=== PATIENT | female | born 1950 | race Caucasian/White ===

== ENCOUNTER → 2016-12-19 | Outpatient (CLI) | payer MEDICARE, BC ==
[2016-05-27 11:50] VITALS: BP 105/56
[~2016-12-19] MED LIST: ACET325T9 PO; ALPR0.254 PO; ANAS1TAB PO; ASPI-482 PO; ATOR40TA59 PO; CARV12.52 PO; CARV25TA2 PO; CARV6.25 PO; CITA10TA4 PO; CLOP75TA27 PO; FENO145T2 PO; FURO20TA3 PO; FURO40TA4 PO; GABA-585 PO; INSU100I13 SQ; INSU100V SQ; ISOS30TA4 PO; LEVO100T5 PO; LOSA1TAB16 PO; LOSA25TA4 PO; LOSA50TA6 PO; MAGN400C PO; OMEG-85 PO; PANT40TA5 PO; POTA20TA12 PO; PRAS10TA4 PO; PROAIR HFA8.5 GM IH; SPIR25TA PO
--- NOTE | 2016-12-19 11:46 | RAD ---
APPROVED REPORT Patient Location: OUT-PATIENT Indications PAD VELOCITY AND DOPPLER WAVEFORM ANALYSIS RIGHT cm/secWaveformSeverity LEFT c m/secWaveformSeverity Ext Iliac Art. 110.0BiphasicExt Iliac Art. 90.0Biphasic pCFA 103.0BiphasicpCFA 84.0Biphasic dCFA 57.0BiphasicdCFA 95.0Biphasic Prof Fem Art. 53.0BiphasicProf Fem Art. 53.0Biphasic Fem Art Prox. 94.0BiphasicFem Art Prox. 103.0Biphasic Fem Art Mid. 121.0BiphasicFem Art Mid. 109.0Biphasic Fem Art Dist. 90.0BiphasicFem Art Dist. 85.0Biphasic Pop Art(AK) 127.0BiphasicPop Art(AK) 153.0Biphasic Pop Art(BK) 61.0BiphasicPop Art(BK) 153.0Biphasic DOPE HEATER Prox. 55.0BiphasicPTA Prox. 36.0Monophasic DOPE HEATER Dist. 49.0MonophasicPTA Dist. 60.0Monophasic Per Art Mid. 31.0MonophasicPer Art Mid. 63.0Monophasic JAIME Prox. 79.0BiphasicATA Prox. 60.0Monophasic Image Findings Low scale images of the bilateral lower extremity arterial vessels show diffuse mild arterial plaque . Spectral waveforms are mostly biphasic and triphasic above the knee. Below the knee there are more monophasic waveforms. On the right no high-grade flow limiting stenosis is identified. On the left there is a patent stent without any evidence of velocity acceleration at the origin or di stally. Overall suspect mild to moderate diffuse arthroscopic plaque without any significant high-grade flow- limiting stenosis. There is patency with three-vessel runoff I laterally in the lower extremities. Critical Notification Critical Value: No <Conclusion> No focal high-grade stenosis identified in the bilateral lower extremity arterial vessels.
== END | disposition home or self-care (01) ==
LOC: US 08:32
PROVIDERS: ATTEND Internal Medicine Cardiovascular Disease
DX: I73.9 Peripheral vascular disease, unspecified (principal)
CPT/HCPCS: 93925

== ENCOUNTER 2017-11-30 05:39 | Outpatient (CLI) | payer MEDICARE, BC ==
[2017-11-30 07:24] LABS: HEMATOCRIT 41.1 % (36.0-47.0); HEMOGLOBIN 13.7 g/dL (12.0-15.5); MEAN CORPUSCULAR HEMOGLOBIN 30 pg (25-35); MEAN CORPUSCULAR HGB CONC 33 g/dL (31-37); MEAN CORPUSCULAR VOLUME 89 fL (79-100); PLATELET COUNT 156 x10^3/uL (140-400); RED CELL DISTRIBUTION WIDTH 14.5 % (11.5-14.5)
[2017-11-30 07:25] LABS: ANION GAP 11 (6-14); BLOOD UREA NITROGEN 22 mg/dL (7-20); CALCIUM 9.1 mg/dL (8.5-10.1); CARBON DIOXIDE 25 mmol/L (21-32); CHLORIDE 105 mmol/L (98-107); GLUCOSE 210 mg/dL (70-99); INR 1.1 (0.8-1.1); PARTIAL THROMBOPLASTIN TIME 24 SEC (24-38); POTASSIUM 4.5 mmol/L (3.5-5.1); PROTHROMBIN TIME PATIENT 13.3 SEC (11.7-14.0); SODIUM 141 mmol/L (136-145)
[2017-11-30] MEDS ORDERED: IODIXANOL 320 MG/ML 100 ML VIAL. (07:41)
[2017-11-30] MEDS ORDERED: LIDOCAINE 2% 20 ML VIAL. (07:41)
[2017-11-30] MEDS ORDERED: MIDAZOLAM HCL/PF 2 MG/2 ML VIAL. (08:06)
[2017-11-30] MEDS ORDERED: fentaNYL PF VIAL 100 MCG/2 ML VIAL (08:06)
[2017-11-30] MEDS ORDERED: HEPARIN for IV BOLUS 10,000 UNIT/10 ML VIAL. (08:06)
[2017-11-30] MEDS ORDERED: NITROGLYCERIN 200 MCG/2 ML SYRINGE FOR CATH/VASC LAB. (08:10)
[2017-11-30] MEDS: IODIXANOL 320 MG/ML 100 ML VIAL. IART (08:45)
[2017-11-30] MEDS: LIDOCAINE 2% 20 ML VIAL. IJ (08:56)
[2017-11-30] MEDS: fentaNYL PF VIAL 100 MCG/2 ML VIAL IV (08:58)
[2017-11-30] MEDS: MIDAZOLAM HCL/PF 2 MG/2 ML VIAL. IV (08:58)
[2017-11-30] MEDS ORDERED: IV 1/2 NORMAL SALINE 1,000 ML IV (09:08)
[2017-11-30] MEDS ORDERED: fentaNYL PF VIAL 100 MCG/2 ML VIAL IV (09:15)
[2017-11-30] MEDS ORDERED: MAGNESIUM HYDROXIDE 2,400 MG/30 ML ORAL.SUSP. PO (09:15)
[2017-11-30] MEDS ORDERED: LACTULOSE 20 GM/30 ML SOLUTION. PO (09:15)
[2017-11-30] MEDS ORDERED: NITROGLYCERIN SUBLINGUAL 0.4 MG BOTTLE OF 25. SL (09:15)
[2017-11-30] MEDS ORDERED: ACETAMINOPHEN 325 MG TABLET. PO (09:15)
== END 2017-11-30 12:05 | disposition home or self-care (01) ==
LOC: CCL 05:39
DX: I70.212 Atherosclerosis of native arteries of extremities with intermittent claudication, left leg (principal); Z79.82 Long term (current) use of aspirin
CPT/HCPCS: 36200; 36415; 75630; 75716; 80048; 85027; 85610; 85730; 99152; 99153; C1713; C1769; C1892; G0269; J1644; J2250; J3010

== ENCOUNTER → 2018-01-16 | Outpatient (CLI) | payer MEDICARE, BC | END | disposition home or self-care (01) | LOC: ECHO 09:44 | DX: I50.22 Chronic systolic (congestive) heart failure (principal) | CPT/HCPCS: 93306 ==

== ENCOUNTER 2018-10-30 13:55 | Emergency (ER) | payer MEDICARE, BC ==
[~2018-10-30] VITALS: Ht 160 cm; Wt 93.4 kg
[~2018-10-30 13:55] MED LIST changes: +ALBU2.5V8 IH; +AMIO400T5 PO; +AMOX1TAB61 PO; +CARV12.511 PO; -CARV12.52 PO; -CLOP75TA27 PO; +CLOP75TA57 PO; -FENO145T2 PO; +FENO145T30 PO; +LACT1CAP19 PO; +LOSA-73 PO; -LOSA1TAB16 PO; +LOSA1TAB19 PO; -LOSA25TA4 PO; +LOSA25TA54 PO; -LOSA50TA6 PO; +MONT10TA9 PO; -PRAS10TA4 PO; +PRAS10TA9 PO; -PROAIR HFA8.5 GM IH; +SACU1TAB4 PO
[2018-10-30 15:01] LABS: BASO % 0 % (0-3); EOS % 1 % (0-3); HEMATOCRIT 41.1 % (36.0-47.0); HEMOGLOBIN 13.6 g/dL (12.0-15.5); LYMPH # 1.6 x10^3/uL (1.0-4.8); LYMPH % 33 % (24-48); MEAN CORPUSCULAR HEMOGLOBIN 30 pg (25-35); MEAN CORPUSCULAR HGB CONC 33 g/dL (31-37); MEAN CORPUSCULAR VOLUME 89 fL (79-100); MONO # 0.3 x10^3/uL (0.0-1.1); MONO % 5 % (0-9); NEUT % 61 % (31-73); PLATELET COUNT 182 x10^3/uL (140-400); RED CELL DISTRIBUTION WIDTH 13.3 % (11.5-14.5); WHITE BLOOD COUNT 4.9 x10^3/uL (4.0-11.0)
[2018-10-30 15:10] LABS: CALCIUM 8.7 mg/dL (8.5-10.1); CREATININE 1.5 mg/dL (0.6-1.0); GFR 34.3; POTASSIUM 4.5 mmol/L (3.5-5.1)
[2018-10-30 15:17] LABS: ALBUMIN 3.3 g/dL (3.4-5.0); TOTAL BILIRUBIN 0.4 mg/dL (0.2-1.0); TOTAL PROTEIN 6.6 g/dL (6.4-8.2)
--- NOTE | 2018-10-30 16:02 | PHYS DOC ---
Past Medical History Past Medical History: Cancer, COPD, Diabetes-Type II, High Cholesterol, Hypertension, Hypothyroid, [place] Additional Past Medical Histor: BREAST CA Past Surgical History: Hysterectomy, Tonsillectomy, Other Additional Past Surgical Histo: CARDIAC STENT, FEMORAL STENT, LEFT MASTECTOMY Alcohol Use: None Drug Use: None Adult General Chief Complaint Chief Complaint: HYPOTENSION HPI HPI 68-year-old female with a history of multiple medical problems including a recent hospitalization for a firing defibrillator. She states she was discharged approximately 3 days ago. She states that since that time she is just not felt well. She describes malaise. She denies any fever chills or sweats. She denies any myalgias. She has not had any further firing of her fibrillator. She denies chest pain. She states she has been eating but doesn't have a great appetite. She does not get dizzy when she stands up. She states she is just not been very active.] Review of Systems Review of Systems Constitutional: Denies fever or chills [] Eyes: Denies change in visual acuity, redness, or eye pain [] HENT: Denies nasal congestion or sore throat [] Respiratory: Denies cough or shortness of breath [] Cardiovascular: No additional information not addressed in HPI [] GI: Denies abdominal pain, nausea, vomiting, bloody stools or diarrhea [] : Denies dysuria or hematuria [] Musculoskeletal: Denies back pain or joint pain [] Integument: Denies rash or skin lesions [] Neurologic: Denies headache, focal weakness or sensory changes [] Endocrine: Denies polyuria or polydipsia [] All other systems were reviewed and found to be within normal limits, except as documented in this note. Allergies Allergies Allergies Coded Allergies Type Severity Reaction Last Updated Verified insulin glargine Allergy Severe "swelling", hospitalized 10/23/18 Yes Physical Exam Physical Exam Constitutional: Frail elderly, no acute distress, non-toxic appearance. [] HENT: Normocephalic, atraumatic, bilateral external ears normal, oropharynx moist, no oral exudates, nose normal. [] Eyes: PERRLA, EOMI, conjunctiva normal, no discharge. [] Neck: Normal range of motion, no tenderness, supple, no stridor. [] Cardiovascular:Heart rate regular rhythm, no murmur [] Lungs & Thorax: Bilateral breath sounds clear to auscultation defibrillator left upper chest[] Abdomen: Bowel sounds normal, soft, no tenderness, no masses, no pulsatile masses. [] Skin: Warm, dry, no erythema, no rash. [] Back: No tenderness, no CVA tenderness. [] Extremities: No tenderness, no cyanosis, no clubbing, ROM intact, no edema. [] Neurologic: Alert and oriented X 3, normal motor function, normal sensory function, no focal deficits noted. [] Psychologic: Depressed affect[] Current Patient Data Vital Signs Vital Signs Date Time Temp Pulse Resp B/P (MAP) Pulse Ox O2 Delivery O2 Flow Rate FiO2 10/30/18 13:55 97.7 75 21 112/56 (74) 99 Room Air 97.7 Lab Values Laboratory Tests Test 10/30/18 14:00 White Blood Count 4.9 x10^3/uL (4.0-11.0) Red Blood Count 4.60 x10^6/uL (3.50-5.40) Hemoglobin 13.6 g/dL (12.0-15.5) Hematocrit 41.1 % (36.0-47.0) Mean Corpuscular Volume 89 fL (79-100) Mean Corpuscular Hemoglobin 30 pg (25-35) Mean Corpuscular Hemoglobin Concent 33 g/dL (31-37) Red Cell Distribution Width 13.3 % (11.5-14.5) Platelet Count 182 x10^3/uL (140-400) Neutrophils (%) (Auto) 61 % (31-73) Lymphocytes (%) (Auto) 33 % (24-48) Monocytes (%) (Auto) 5 % (0-9) Eosinophils (%) (Auto) 1 % (0-3) Basophils (%) (Auto) 0 % (0-3) Neutrophils # (Auto) 3.0 x10^3uL (1.8-7.7) Lymphocytes # (Auto) 1.6 x10^3/uL (1.0-4.8) Monocytes # (Auto) 0.3 x10^3/uL (0.0-1.1) Eosinophils # (Auto) 0.0 x10^3/uL (0.0-0.7) Basophils # (Auto) 0.0 x10^3/uL (0.0-0.2) Sodium Level 140 mmol/L (136-145) Potassium Level 4.5 mmol/L (3.5-5.1) Chloride Level 104 mmol/L (98-107) Carbon Dioxide Level 25 mmol/L (21-32) Anion Gap 11 (6-14) Blood Urea Nitrogen 26 mg/dL (7-20) H Creatinine 1.5 mg/dL (0.6-1.0) H Estimated GFR (Cockcroft-Gault) 34.3 BUN/Creatinine Ratio 17 (6-20) Glucose Level 181 mg/dL (70-99) H Calcium Level 8.7 mg/dL (8.5-10.1) Total Bilirubin 0.4 mg/dL (0.2-1.0) Aspartate Amino Transferase (AST) 23 U/L (15-37) Alanine Aminotransferase (ALT) 41 U/L (14-59) Alkaline Phosphatase 49 U/L (46-116) Total Protein 6.6 g/dL (6.4-8.2) Albumin 3.3 g/dL (3.4-5.0) L Albumin/Globulin Ratio 1.0 (1.0-1.7) Laboratory Tests 10/30/18 14:00 Laboratory Tests 10/30/18 14:00 EKG EKG [] Radiology/Procedures Radiology/Procedures [] Course & Med Decision Making Course & Med Decision Making Pertinent Labs and Imaging studies reviewed. (See chart for details) []ED course: Evaluation reveals a 68-year-old female who does not look particularly ill she looks more depressed to me. Orthostatic vital signs were checked and they were all normal. I explained to the patient that I did not feel like putting her back in the hospital was in her best interest. I encouraged her to follow with her primary care physician should she have continued malaise. Dragon Disclaimer Dragon Disclaimer This electronic medical record was generated, in whole or in part, using a voice recognition dictation system. Departure Departure Impression: Primary Impression: Generalized weakness Disposition: 01 HOME, SELF-CARE Condition: STABLE Referrals: YARELI GOEL (PCP) Patient Instructions: Weakness Additional Instructions: Follow with her primary care physician this week for recheck. Return to the emergency department with any new or concerning symptoms ALIA PINEDA DO Oct 30, 2018 16:02
[2018-10-30 16:21] LABS: BILIRUBIN,URINE SMALL (NEG); NITRITE,URINE NEGATIVE (NEG); PROTEIN,URINE 30 mg/dL (NEG-TRACE)
[2018-10-30 16:26] LABS: CLARITY,URINE CLEAR; COLOR,URINE DK YELLOW
[2018-10-30 16:30] VITALS: BP 111/56
[2018-10-30 16:30] LABS: BACTERIA,URINE FEW /HPF (0-FEW); HYALINE CASTS, URINE MANY /HPF; RBC,URINE RARE /HPF (0-2); SQUAMOUS EPITHELIAL CELL,UR MANY /LPF; WBC,URINE OCC /HPF (0-4); YEAST,URINE PRESENT /HPF
--- NOTE | 2018-10-30 18:48 | EKG ---
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
== END 2018-10-30 17:04 | disposition home or self-care (01) ==
LOC: ER 13:55
DX: R53.1 Weakness (principal); E78.00 Pure hypercholesterolemia, unspecified; E03.9 Hypothyroidism, unspecified; E11.9 Type 2 diabetes mellitus without complications; J44.9 Chronic obstructive pulmonary disease, unspecified; I10 Essential (primary) hypertension; I25.2 Old myocardial infarction; Z95.5 Presence of coronary angioplasty implant and graft; Z88.8 Allergy status to other drugs, medicaments and biological substances
CPT/HCPCS: 36415; 80053; 81001; 85025; 93005; 99284-25

== ENCOUNTER → 2019-05-28 | Day surgery (SDC) | payer MEDICARE, BC ==
[~2019-05-28] MED LIST changes: -INSU100V SQ; +INSU100V6 SQ; +IV RINGERS,LACTATED 1000ML 1,000 ML IV SCH; +MONT10TA49 PO; -MONT10TA9 PO; -PANT40TA5 PO; +PANT40TA77 PO; +PROPOFOL 20 ML IV ONE; +SODIUM PHOSPHATES 19/7GM 133 ML ENEMA. ONE
[2019-05-28 08:17] VITALS: BP 125/56
== END ==
LOC: ENDOS 05:58
PROVIDERS: ATTEND Internal Medicine Gastroenterology
DX: K64.0 First degree hemorrhoids (principal); K63.89 Other specified diseases of intestine; D64.9 Anemia, unspecified; I11.0 Hypertensive heart disease with heart failure; I50.9 Heart failure, unspecified; E11.9 Type 2 diabetes mellitus without complications; J43.9 Emphysema, unspecified; K44.9 Diaphragmatic hernia without obstruction or gangrene; E78.00 Pure hypercholesterolemia, unspecified; E03.9 Hypothyroidism, unspecified; I25.2 Old myocardial infarction; Z98.890 Other specified postprocedural states; Z79.82 Long term (current) use of aspirin; Z90.710 Acquired absence of both cervix and uterus; Z95.810 Presence of automatic (implantable) cardiac defibrillator; Z85.3 Personal history of malignant neoplasm of breast; Z98.51 Tubal ligation status; Z79.84 Long term (current) use of oral hypoglycemic drugs
CPT/HCPCS: 45378; 82962; J2704

== ENCOUNTER 2019-12-22 18:03 | Inpatient (IN) | payer MEDICARE, BC ==
[~2019-12-22] VITALS: Ht 160 cm; Wt 94.0 kg
[~2019-12-22 18:03] MED LIST changes: +DOCU-109 PO; +ENOX100D3 SQ; +FENO145T3 PO; -FENO145T30 PO; +HYDR-2761 PO; -IV RINGERS,LACTATED 1000ML 1,000 ML IV SCH; +LISI-338 PO; -PROPOFOL 20 ML IV ONE; -SODIUM PHOSPHATES 19/7GM 133 ML ENEMA. ONE; +WARF-31 PO
[2019-12-22] MEDS ORDERED: IV NORMAL SALINE 1000ML BAG 1,000 ML IV SCH (18:19)
--- NOTE | 2019-12-22 18:27 | PHYS DOC ---
Past Medical History Past Medical History: Cancer, COPD, Diabetes-Type II, High Cholesterol, H ypertension, Hypothyroid, [place] Additional Past Medical Histor: BREAST CA Past Surgical History: Hysterectomy, Pacemaker, Tonsillectomy, Other Additional Past Surgical Histo: CARDIAC STENT, FEMORAL STENT, LEFT MASTECTOMY Smoking Status: Never Smoker Alcohol Use: None Drug Use: None General Adult EDM: Chief Complaint: SHORTNESS OF BREATH HPI: HPI: Patient is a 69 year old female who presents with complaint of shortness of breath and generalized weakness for the last few days. Patient indicates that she had a cholecystectomy back in October and had a lot of postoperative bleeding at that time. She states that she is feeling very much like she had back then. She also indicates that her abdomen has become distended and is wondering if she has started bleeding again. She denies any fever. She denies any chest pain and has had no vomiting or diarrhea. She does indicate that the shortness breath is worsened with minimal exertion.[] Review of Systems: Review of Systems: Constitutional: Denies fever or chills. [] Respiratory: Complains of shortness of breath. [] Cardiovascular: Denies chest pain or edema. [] GI: Denies abdominal pain, nausea, vomiting or diarrhea. [] Integument: Denies rash. [] Neurologic: Denies headache, focal weakness or sensory changes. [] A full 10 point review of systems has been reviewed and is otherwise negative. Heart Score: Risk Factors: Risk Factors: DM, Current or recent (<one month) smoker, HTN, HLP, family history of CAD, obesity. Risk Scores: Score 0 - 3: 2.5% MACE over next 6 weeks - Discharge Home Score 4 - 6: 20.3% MACE over next 6 weeks - Admit for Clinical Observation Score 7 - 10: 72.7% MACE over next 6 weeks - Early Invasive Strategies Allergies: Allergies: Allergies Coded Allergies Type Severity Reaction Last Updated Verified insulin glargine Allergy Severe "swelling", hospitalized [facility] ONLY 09/27/19 Yes Physical Exam: PE: Constitutional: Well developed, well nourished, no acute distress, non-toxic appearance. [] HENT: Normocephalic, atraumatic, bilateral external ears normal, oropharynx moist, no oral exudates, nose normal. [] Eyes: PERRLA, EOMI, conjunctiva normal, no discharge. [] Neck: Normal range of motion, no tenderness, supple. [] Cardiovascular: Regular rate and rhythm[] Lungs & Thorax: Bilateral breath sounds clear to auscultation [] Abdomen: Bowel sounds normal, mildly distended but nontender. [] Skin: Warm, dry, no erythema, no rash. [] Extremities: No tenderness, no cyanosis, no clubbing, ROM intact. [] Neurologic: Alert and oriented X 3, no focal deficits noted. [] EKG: EKG: EKG demonstrates normal sinus rhythm with rate of 90.[] Radiology/Procedures: Radiology/Procedures: [] Impression: PROCEDURE: PORTABLE CHEST 1V PORTABLE CHEST 1V 12/22/2019 6:19 PM INDICATION: Dyspnea COMPARISON: 10/10/2019 TECHNIQUE: Portable frontal view of the chest is provided. FINDINGS: The cardiomediastinal silhouette is similar in appearance. Similar mild interstitial prominence. Lungs are otherwise clear. Right chest wall cardiac device is identified in similar position. There may be a moderate sized hiatal hernia. There are no significant pleural effusions. There is no pulmonary vascular congestion. No pneumothorax. No suspicious osseous abnormality. IMPRESSION: Stable mild chronic interstitial changes without new airspace consolidation. Suspect a moderate size hiatal hernia. Electronically signed by: Willian Russ MD (12/22/2019 7:56 PM) [facility] PROCEDURE: CT ABDOMEN PELVIS WO CONTRAST PQRS Compliance Statement: One or more of the following individualized dose reduction techniques were utilized for this examination: 1. Automated exposure control 2. Adjustment of the mA and/or kV according to patient size 3. Use of iterative reconstruction technique CT abdomen/pelvis without contrast 12/22/2019 9:30 PM INDICATION: Abdominal distention, pain COMPARISON: CT abdomen/pelvis 09/28/2019 TECHNIQUE: Multiple axial CT images of the abdomen and pelvis were obtained without intravenous contrast. Coronal and sagittal reformats are provided. FINDINGS: Pleural thickening is noted at the lung bases with bibasilar interstitial changes, possibly representing chronic edema. Heart size is enlarged. Cardiac pacer wires are partially profiled. Evaluation of solid abdominal viscera is limited by lack of intravenous contrast. There is a new area of hypoattenuation involving the inferior aspect of the right hepatic lobe measuring 3.2 x 3.0 cm. Gallbladder appears surgically absent. Within the gallbladder fossa, there is a fluid collection measuring 4.8 x 3.2 cm. Spleen is not enlarged. Adrenal glands are normal in appearance. Mild fatty atrophy of the pancreas. Minimal hazy attenuation along the inferior margin of the uncinate process. Abdominal aorta is normal in course and caliber with mild calcified atheromatous plaque. No pathologically enlarged lymph nodes are identified in abdomen and pelvis. There is no free fluid or free intraperitoneal air. There is hazy appearance of the central small bowel mesentery, new from the prior examination (series 2, image 98). IVC filter is present. The kidneys are relatively symmetric in appearance. There is no suspicious renal mass within the limitations of a noncontrast examination. There is no hydronephrosis. There are no calculi within the kidneys, ureters or urinary bladder. Mild chronic perinephric edema is noted. Small and large bowel are normal in caliber. There is no evidence for bowel obstruction. There are no pericolonic inflammatory changes. A normal, nondilated appendix is visualized without adjacent inflammatory changes. Urinary bladder is within normal limits given degree of distention. No suspicious pelvic mass. No suspicious osseous abnormality is identified. IMPRESSION: 1. Status post cholecystectomy with fluid collection in the gallbladder fossa. Along the inferior aspect of the right hepatic lobe, there may be subcapsular fluid collection versus intrahepatic mass. Findings could reflect postoperative changes with postoperative seroma in the gallbladder fossa. However, correlation with patient's history is recommended. Correlate with bile leak. Inferior right hepatic lobe abnormality could reflect a subcapsular hematoma versus developing intrahepatic abscess or neoplasm. Findings are limited in evaluation without intravenous contrast. 2. Cardiomegaly with likely chronic interstitial edema of the lung bases. 3. New hazy attenuation within the root of small bowel mesentery with shotty lymphadenopathy may represent mesenteric adenitis. Mild fatty atrophy of the pancreas. There is minimal hazy attenuation along the inferior margin the uncinate process. Correlate with pancreatic enzymes to assess for pancreatitis. Electronically signed by: Willian Russ MD (12/22/2019 9:49 PM) [facility] DICTATED and SIGNED BY: WILLIAN RUSS MD DATE: 12/22/192148 Course & Med Decision Making: Course & Med Decision Making Pertinent Labs and Imaging studies reviewed. (See chart for details) [] Dragon Disclaimer: Dragon Disclaimer: This electronic medical record was generated, in whole or in part, using a voice recognition dictation system. Departure Departure Impression: Primary Impression: Weakness Additional Impressions: Dyspnea Qualified Codes: R06.02 - Shortness of breath Abnormal CT of the abdomen MAURILIO (acute kidney injury) Disposition: 09 ADMITTED INPATIENT Admitting Physician: KARLA Condition: IMPROVED Referrals: YARELI GOEL (PCP) TACHO BURGESS Jr. DO Dec 22, 2019 18:27
--- NOTE | 2019-12-22 19:59 | RAD ---
PORTABLE CHEST 1V 12/22/2019 6:19 PM INDICATION: Dyspnea COMPARISON: 10/10/2019 TECHNIQUE: Portable frontal view of the chest is provided. FINDINGS: The cardiomediastinal silhouette is similar in appearance. Similar mild interstitial prominence. Lungs are otherwise clear. Right chest wall cardiac device is identified in similar position. There may be a moderate sized hiatal hernia. There are no significant pleural effusions. There is no pulmonary vascular congestion. No pneumothorax. No suspicious osseous abnormality. IMPRESSION: Stable mild chronic interstitial changes without new airspace consolidation. Suspect a moderate size hiatal hernia. Electronically signed by: Alina Russ MD (12/22/2019 7:56 PM) MAN[facility]
[2019-12-22 20:14] LABS: BASO % 1 % (0-3); EOS % 1 % (0-3); HEMOGLOBIN 11.3 g/dL (12.0-15.5); LYMPH # 1.5 x10^3/uL (1.0-4.8); LYMPH % 21 % (24-48); MEAN CORPUSCULAR HEMOGLOBIN 23 pg (25-35); MEAN CORPUSCULAR HGB CONC 31 g/dL (31-37); MEAN CORPUSCULAR VOLUME 75 fL (79-100); MONO # 0.8 x10^3/uL (0.0-1.1); MONO % 12 % (0-9); NEUT # 4.7 x10^3/uL (1.8-7.7); NEUT % 66 % (31-73); PLATELET COUNT 202 x10^3/uL (140-400); RED BLOOD COUNT 4.83 x10^6/uL (3.50-5.40); WHITE BLOOD COUNT 7.1 x10^3/uL (4.0-11.0)
[2019-12-22 20:18] LABS: CALCIUM 8.7 mg/dL (8.5-10.1); CREATININE 1.8 mg/dL (0.6-1.0); GFR 27.7; POTASSIUM 4.2 mmol/L (3.5-5.1)
[2019-12-22 20:24] LABS: ALBUMIN 3.5 g/dL (3.4-5.0); ALBUMIN/GLOBULIN RATIO 1.2 (1.0-1.7); PROTHROMBIN TIME PATIENT 13.5 SEC (11.7-14.0); TOTAL BILIRUBIN 0.3 mg/dL (0.2-1.0); TOTAL PROTEIN 6.5 g/dL (6.4-8.2)
[2019-12-22 20:32] LABS: D-DIMER 0.55 ug/mlFEU (0.00-0.50)
--- NOTE | 2019-12-22 21:52 | RAD ---
PQRS Compliance Statement: One or more of the following individualized dose reduction techniques were utilized for this examination: 1. Automated exposure control 2. Adjustment of the mA and/or kV according to patient size 3. Use of iterative reconstruction technique CT abdomen/pelvis without contrast 12/22/2019 9:30 PM INDICATION: Abdominal distention, pain COMPARISON: CT abdomen/pelvis 09/28/2019 TECHNIQUE: Multiple axial CT images of the abdomen and pelvis were obtained without intravenous contrast. Coronal and sagittal reformats are provided. FINDINGS: Pleural thickening is noted at the lung bases with bibasilar interstitial changes, possibly representing chronic edema. Heart size is enlarged. Cardiac pacer wires are partially profiled. Evaluation of solid abdominal viscera is limited by lack of intravenous contrast. There is a new area of hypoattenuation involving the inferior aspect of the right hepatic lobe measuring 3.2 x 3.0 cm. Gallbladder appears surgically absent. Within the gallbladder fossa, there is a fluid collection measuring 4.8 x 3.2 cm. Spleen is not enlarged. Adrenal glands are normal in appearance. Mild fatty atrophy of the pancreas. Minimal hazy attenuation along the inferior margin of the uncinate process. Abdominal aorta is normal in course and caliber with mild calcified atheromatous plaque. No pathologically enlarged lymph nodes are identified in abdomen and pelvis. There is no free fluid or free intraperitoneal air. There is hazy appearance of the central small bowel mesentery, new from the prior examination (series 2, image 98). IVC filter is present. The kidneys are relatively symmetric in appearance. There is no suspicious renal mass within the limitations of a noncontrast examination. There is no hydronephrosis. There are no calculi within the kidneys, ureters or urinary bladder. Mild chronic perinephric edema is noted. Small and large bowel are normal in caliber. There is no evidence for bowel obstruction. There are no pericolonic inflammatory changes. A normal, nondilated appendix is visualized without adjacent inflammatory changes. Urinary bladder is within normal limits given degree of distention. No suspicious pelvic mass. No suspicious osseous abnormality is identified. IMPRESSION: 1. Status post cholecystectomy with fluid collection in the gallbladder fossa. Along the inferior aspect of the right hepatic lobe, there may be subcapsular fluid collection versus intrahepatic mass. Findings could reflect postoperative changes with postoperative seroma in the gallbladder fossa. However, correlation with patient's history is recommended. Correlate with bile leak. Inferior right hepatic lobe abnormality could reflect a subcapsular hematoma versus developing intrahepatic abscess or neoplasm. Findings are limited in evaluation without intravenous contrast. 2. Cardiomegaly with likely chronic interstitial edema of the lung bases. 3. New hazy attenuation within the root of small bowel mesentery with shotty lymphadenopathy may represent mesenteric adenitis. Mild fatty atrophy of the pancreas. There is minimal hazy attenuation along the inferior margin the uncinate process. Correlate with pancreatic enzymes to assess for pancreatitis. Electronically signed by: Alina Russ MD (12/22/2019 9:49 PM) [facility]
[2019-12-22] MEDS ORDERED: ONDANSETRON PF 4 MG/2 ML VIAL. IV PRN (22:15)
[2019-12-23] VITALS (7 sets, daily range): BP systolic 115–157; BP diastolic 50–74
[2019-12-23] MEDS ORDERED: HYDR-2765 PO (00:20)
[2019-12-23] MEDS ORDERED: CARV12.511 PO (00:20)
[2019-12-23] MEDS ORDERED: FURO20TA3 PO (00:20)
[2019-12-23] MEDS ORDERED: CITA20TA6 PO (00:20)
[2019-12-23] MEDS ORDERED: AMIO200T4 PO (00:20)
[2019-12-23] MEDS: IV NORMAL SALINE 1000ML BAG 1,000 ML IV SCH ×3 (00:30→13:41)
[2019-12-23 04:24] LABS: BASO % 1 % (0-3); EOS # 0.1 x10^3/uL (0.0-0.7); EOS % 1 % (0-3); HEMATOCRIT 33.5 % (36.0-47.0); HEMOGLOBIN 10.2 g/dL (12.0-15.5); LYMPH # 1.7 x10^3/uL (1.0-4.8); LYMPH % 31 % (24-48); MEAN CORPUSCULAR HEMOGLOBIN 23 pg (25-35); MEAN CORPUSCULAR HGB CONC 31 g/dL (31-37); MEAN CORPUSCULAR VOLUME 76 fL (79-100); MONO # 0.5 x10^3/uL (0.0-1.1); MONO % 9 % (0-9); NEUT # 3.2 x10^3/uL (1.8-7.7); NEUT % 58 % (31-73); PLATELET COUNT 167 x10^3/uL (140-400); RED BLOOD COUNT 4.43 x10^6/uL (3.50-5.40); RED CELL DISTRIBUTION WIDTH 18.8 % (11.5-14.5); WHITE BLOOD COUNT 5.5 x10^3/uL (4.0-11.0)
[2019-12-23 04:36] LABS: CALCIUM 8.2 mg/dL (8.5-10.1); CREATININE 1.5 mg/dL (0.6-1.0); GFR 34.2; POTASSIUM 4.5 mmol/L (3.5-5.1)
--- NOTE | 2019-12-23 05:34 | EKG ---
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
--- NOTE | 2019-12-23 09:08 | PDOC2 ---
ZULMA HERNÁNDEZ TIG WELDER 12/23/19 0908: CONSULT Date of Consult Date of Consult DATE: 12/23/19 TIME: 08:57 Reason for Consult Reason for Consult: abnormal CT Referring Physician Referring Physician: ER Identification/Chief Complaint Chief Complaint abdominal pain Source Source: Chart review, Patient History of Present Illness Reason for Visit: S/p lap moraima in Sep, hematoma post-with drain in place --on antiplatelet me ds--now with IVC filter Pain since surgery, however improving, then 2 weeks ago started having more pain RUQ, blaoting, feeling gassy, reports normal stools, no n/v, eating regularly Past Medical History Cardiovascular: CAD, CHF, HTN, Hyperlipidemia Pulmonary: Pneumonia CENTRAL NERVOUS SYSTEM: Carpal Tunnel Syndrome, Periperal neuropathy GI: GERD Heme/Onc: Cancer Psych: Anxiety Musculoskeletal: Osteoarthritis Infectious disease: No pertinent hx Renal/: No pertinent hx Endocrine: Diabetes, Hypothyroidism Past Surgical History Past Surgical History: Cholecystectomy, Mastectomy, Tubal Ligation, Tonsillectomy, Hysterectomy, Other Family History Family History: Heart Disease Social History ALCOHOL: none Drugs: None Lives: Alone Domestic Violence: Neg Current Problem List Problem List Problems Medical Problems: (1) Abnormal CT of the abdomen Status: Acute (2) Dyspnea Status: Acute Current Medications Current Medications Current Medications Sodium Chloride 1,000 ml @ 1,000 mls/hr Q1H IV Last administered on 12/22/19at 19:55; Start 12/22/19 at 18:19; Stop 12/22/19 at 19:18; Status DC Ondansetron HCl (Zofran) 4 mg PRN Q8HRS PRN IV NAUSEA/VOMITING; Start 12/22/19 at 22:15; Stop 12/23/19 at 22:14 Sodium Chloride 1,000 ml @ 100 mls/hr Q10H IV Last administered on 12/23/19at 00:30; Start 12/22/19 at 22:15; Stop 12/23/19 at 22:14 Active Scripts Active Colace (Docusate Sodium) 100 Mg Capsule 1 Cap PO BID 30 Days Alprazolam 0.25 Mg Tablet 1 Tab PO BID PRN Reported Citalopram Hbr (Citalopram Hydrobromide) 20 Mg Tablet 1 Tab PO DAILY08 Hydrocodone-Apap 7.5-325 (Hydrocodone Bit/Acetaminophen) 1 Tab Tablet 1 Tab PO Q4HRS PRN Furosemide 20 Mg Tablet 20 Mg PO BID Carvedilol (Carvedilol) 12.5 Mg Tablet 12.5 Mg PO BIDWMEALS Amiodarone Hcl 200 Mg Tablet 1 Tab PO DAILY Montelukast Sodium Tablet (Montelukast Sodium) 10 Mg Tablet 10 Mg PO HS Levothyroxine Sodium 100 Mcg Tablet 1 Tab PO DAILY Proair Hfa Inhaler (Albuterol Sulfate) 8.5 Gm Hfa.aer.ad 2 Puff IH PRN Q4-6HRS Tylenol (Acetaminophen) 325 Mg Tablet 650 Mg PO Fenofibrate (Fenofibrate Nanocrystallized) 145 Mg Tablet 1 Tab PO DAILY NEXT DOSE: 05/21/15 AM Humalog (Insulin Lispro) 100 Unit/1 Ml Vial 35 Unit SQ TID Lantus Solostar (Insulin Glargine,Hum.rec.anlog) 100 Unit/1 Ml Insuln.pen 50 Unit SQ HS Pantoprazole Sodium (Pantoprazole Sodium) 40 Mg Tablet.dr 40 Mg PO DAILY NEXT DOSE: 05/21/15 AM Atorvastatin Calcium 40 Mg Tablet 40 Mg PO HS Gabapentin (Gabapentin) 100 Mg Capsule 100 Mg PO BID NEXT DOSE: 05/20/15 PM Allergies Allergies: Coded Allergies: insulin glargine (Verified Allergy, Severe, "swelling", hospitalized [facility] ONLY, 09/27/19) allergy is [facility] ONLY, takes LANTUS [place] ROS General: No: Chills, Other (fevers ) PSYCHOLOGICAL ROS: No: Anxiety, Depression Eyes: No Blurry vision, No Double vision HEENT: No: Heacaches, Sore Throat Hematological and Lymphatic: YES: Bleeding Problems; No: Blood Clots Respiratory: No: Cough, Shortness of breath Cardiovascular: No Chest Pain, No Palpitations Gastrointestinal: Yes Other (see hpi) Genitourinary: No Dysuria, No Retention Musculoskeletal: No Joint Pain, No Muscle Pain Neurological: No Impaired Coord/balance, No Numbness/Tingling Skin: No Pruritus, No Rash Physical Exam General: Alert, Oriented X3, Cooperative HEENT: PERRLA, Mucous membr. moist/pink Lungs: Clear to auscultation, Normal air movement Heart: Regular rate, Normal S1, Normal S2 Abdomen: Soft, Other (moderate ttp RUQ, some guarding with deep palpation ) Extremities: No clubbing, No cyanosis Skin: No rashes, No breakdown Neuro: Normal gait, Normal speech Psych/Mental Status: Mental status NL, Mood NL MUSCULOSKELETAL: No deformity, No swelling Vitals VITALS Vital Signs Date Time Temp Pulse Resp B/P (MAP) Pulse Ox O2 Delivery O2 Flow Rate FiO2 12/23/19 07:25 Nasal Cannula 2.0 12/23/19 07:20 97.7 79 16 149/74 (99) 98 97.7 Labs Labs Laboratory Tests Test 12/22/19 19:55 12/22/19 23:37 12/23/19 03:30 White Blood Count 7.1 x10^3/uL (4.0-11.0) 5.5 x10^3/uL (4.0-11.0) Red Blood Count 4.83 x10^6/uL (3.50-5.40) 4.43 x10^6/uL (3.50-5.40) Hemoglobin 11.3 g/dL (12.0-15.5) 10.2 g/dL (12.0-15.5) Hematocrit 36.0 % (36.0-47.0) 33.5 % (36.0-47.0) Mean Corpuscular Volume 75 fL (79-100) 76 fL (79-100) Mean Corpuscular Hemoglobin 23 pg (25-35) 23 pg (25-35) Mean Corpuscular Hemoglobin Concent 31 g/dL (31-37) 31 g/dL (31-37) Red Cell Distribution Width 19.0 % (11.5-14.5) 18.8 % (11.5-14.5) Platelet Count 202 x10^3/uL (140-400) 167 x10^3/uL (140-400) Neutrophils (%) (Auto) 66 % (31-73) 58 % (31-73) Lymphocytes (%) (Auto) 21 % (24-48) 31 % (24-48) Monocytes (%) (Auto) 12 % (0-9) 9 % (0-9) Eosinophils (%) (Auto) 1 % (0-3) 1 % (0-3) Basophils (%) (Auto) 1 % (0-3) 1 % (0-3) Neutrophils # (Auto) 4.7 x10^3/uL (1.8-7.7) 3.2 x10^3/uL (1.8-7.7) Lymphocytes # (Auto) 1.5 x10^3/uL (1.0-4.8) 1.7 x10^3/uL (1.0-4.8) Monocytes # (Auto) 0.8 x10^3/uL (0.0-1.1) 0.5 x10^3/uL (0.0-1.1) Eosinophils # (Auto) 0.0 x10^3/uL (0.0-0.7) 0.1 x10^3/uL (0.0-0.7) Basophils # (Auto) 0.0 x10^3/uL (0.0-0.2) 0.0 x10^3/uL (0.0-0.2) Prothrombin Time 13.5 SEC (11.7-14.0) Prothromb Time International Ratio 1.1 (0.8-1.1) Activated Partial Thromboplast Time 25 SEC (24-38) D-Dimer (Elsy) 0.55 ug/mlFEU (0.00-0.50) Sodium Level 139 mmol/L (136-145) 140 mmol/L (136-145) Potassium Level 4.2 mmol/L (3.5-5.1) 4.5 mmol/L (3.5-5.1) Chloride Level 102 mmol/L (98-107) 106 mmol/L (98-107) Carbon Dioxide Level 27 mmol/L (21-32) 25 mmol/L (21-32) Anion Gap 10 (6-14) 9 (6-14) Blood Urea Nitrogen 28 mg/dL (7-20) 27 mg/dL (7-20) Creatinine 1.8 mg/dL (0.6-1.0) 1.5 mg/dL (0.6-1.0) Estimated GFR (Cockcroft-Gault) 27.7 34.2 BUN/Creatinine Ratio 16 (6-20) Glucose Level 151 mg/dL (70-99) 220 mg/dL (70-99) Calcium Level 8.7 mg/dL (8.5-10.1) 8.2 mg/dL (8.5-10.1) Total Bilirubin 0.3 mg/dL (0.2-1.0) Aspartate Amino Transf (AST/SGOT) 24 U/L (15-37) Alanine Aminotransferase (ALT/SGPT) 40 U/L (14-59) Alkaline Phosphatase 68 U/L (46-116) Troponin I Quantitative < 0.017 ng/mL (0.000-0.055) GN-Uuj-J-Type Natriuretic Peptide 409 pg/mL (0-124) Total Protein 6.5 g/dL (6.4-8.2) Albumin 3.5 g/dL (3.4-5.0) Albumin/Globulin Ratio 1.2 (1.0-1.7) Lipase 304 U/L (73-393) Glucose (Fingerstick) 137 mg/dL (70-99) Laboratory Tests Test 12/22/19 19:55 12/22/19 23:37 12/23/19 03:30 White Blood Count 7.1 x10^3/uL (4.0-11.0) 5.5 x10^3/uL (4.0-11.0) Red Blood Count 4.83 x10^6/uL (3.50-5.40) 4.43 x10^6/uL (3.50-5.40) Hemoglobin 11.3 g/dL (12.0-15.5) 10.2 g/dL (12.0-15.5) Hematocrit 36.0 % (36.0-47.0) 33.5 % (36.0-47.0) Mean Corpuscular Volume 75 fL (79-100) 76 fL (79-100) Mean Corpuscular Hemoglobin 23 pg (25-35) 23 pg (25-35) Mean Corpuscular Hemoglobin Concent 31 g/dL (31-37) 31 g/dL (31-37) Red Cell Distribution Width 19.0 % (11.5-14.5) 18.8 % (11.5-14.5) Platelet Count 202 x10^3/uL (140-400) 167 x10^3/uL (140-400) Neutrophils (%) (Auto) 66 % (31-73) 58 % (31-73) Lymphocytes (%) (Auto) 21 % (24-48) 31 % (24-48) Monocytes (%) (Auto) 12 % (0-9) 9 % (0-9) Eosinophils (%) (Auto) 1 % (0-3) 1 % (0-3) Basophils (%) (Auto) 1 % (0-3) 1 % (0-3) Neutrophils # (Auto) 4.7 x10^3/uL (1.8-7.7) 3.2 x10^3/uL (1.8-7.7) Lymphocytes # (Auto) 1.5 x10^3/uL (1.0-4.8) 1.7 x10^3/uL (1.0-4.8) Monocytes # (Auto) 0.8 x10^3/uL (0.0-1.1) 0.5 x10^3/uL (0.0-1.1) Eosinophils # (Auto) 0.0 x10^3/uL (0.0-0.7) 0.1 x10^3/uL (0.0-0.7) Basophils # (Auto) 0.0 x10^3/uL (0.0-0.2) 0.0 x10^3/uL (0.0-0.2) Prothrombin Time 13.5 SEC (11.7-14.0) Prothromb Time International Ratio 1.1 (0.8-1.1) Activated Partial Thromboplast Time 25 SEC (24-38) D-Dimer (Elsy) 0.55 ug/mlFEU (0.00-0.50) Sodium Level 139 mmol/L (136-145) 140 mmol/L (136-145) Potassium Level 4.2 mmol/L (3.5-5.1) 4.5 mmol/L (3.5-5.1) Chloride Level 102 mmol/L (98-107) 106 mmol/L (98-107) Carbon Dioxide Level 27 mmol/L (21-32) 25 mmol/L (21-32) Anion Gap 10 (6-14) 9 (6-14) Blood Urea Nitrogen 28 mg/dL (7-20) 27 mg/dL (7-20) Creatinine 1.8 mg/dL (0.6-1.0) 1.5 mg/dL (0.6-1.0) Estimated GFR (Cockcroft-Gault) 27.7 34.2 BUN/Creatinine Ratio 16 (6-20) Glucose Level 151 mg/dL (70-99) 220 mg/dL (70-99) Calcium Level 8.7 mg/dL (8.5-10.1) 8.2 mg/dL (8.5-10.1) Total Bilirubin 0.3 mg/dL (0.2-1.0) Aspartate Amino Transf (AST/SGOT) 24 U/L (15-37) Alanine Aminotransferase (ALT/SGPT) 40 U/L (14-59) Alkaline Phosphatase 68 U/L (46-116) Troponin I Quantitative < 0.017 ng/mL (0.000-0.055) IE-Orf-S-Type Natriuretic Peptide 409 pg/mL (0-124) Total Protein 6.5 g/dL (6.4-8.2) Albumin 3.5 g/dL (3.4-5.0) Albumin/Globulin Ratio 1.2 (1.0-1.7) Lipase 304 U/L (73-393) Glucose (Fingerstick) 137 mg/dL (70-99) Assessment/Plan Assessment/Plan abd pain abnormal CT fluid collection GB fossa--seems unlikely bile leak since length of time since surgery, ? sermoa/hematoma still resolving--will check HIDA to confirm no bile leak Abnormal liver finding--rec improving CR and repeat CT with IV/oral contrast OSVALDO FREED MD 12/24/19 0911: CONSULT Assessment/Plan Assessment/Plan Density on CT scan most likely related to surgicel pack (hemostatic agent) used during surgery; Can check HIDA however very unlikely to have bile leak or other related postchole issue at this point ZULMA HERNÁNDEZ APRN Dec 23, 2019 09:08 OSVALDO FREED MD Dec 24, 2019 09:11
[2019-12-23] MEDS ORDERED: ALPRAZolam 0.25 MG TABLET PO PRN (12:00)
[2019-12-23] MEDS ORDERED: HYDROcodone/APAP 7.5/325MG 1 TAB TABLET PO PRN (12:00)
--- NOTE | 2019-12-23 12:17 | PDOC1 ---
History and Physical Date of Admission Date of Admission DATE: 12/23/19 TIME: 11:53 Identification/Chief Complaint Chief Complaint abdominal pain Source Source: Chart review, Patient History of Present Illness History of Present Illness 69 year old female s/p lap moraima in Sep with hematoma post with drain in place. was on antiplt therapy but had blood loss anemia so stopped. she has a hx of coronary artery disease, status post drug-eluting stents to left anterior descending. she also has a hx of bilateral PE on coumadin which was stopped due to blood loss anemia back in Oct. She has a history of cancer, Noted hx of congestive heart failure with an ejection fraction of 25%, status post AICD placement that is stable. she presents today with pain in abdomen. noted pain since sx but improved but worsened 2 weeks ago. mostly located in RUQ. reports gas and bloating. no nausea vomiting diarrhea. no urinary symptoms. no fevers. tolerating PO diet. called for admission due to pain . H AND H STABLE AT 10.[address] abdomen done and is as follows: 1. Status post cholecystectomy with fluid collection in the gallbladder fossa. Along the inferior aspect of the right hepatic lobe, there may be subcapsular fluid collection versus intrahepatic mass. Findings could reflect postoperative changes with postoperative seroma in the gallbladder fossa. However, correlation with patient's history is recommended. Correlate with bile leak. Inferior right hepatic lobe abnormality could reflect a subcapsular hematoma versus developing intrahepatic abscess or neoplasm. Findings are limited in evaluation without intravenous contrast. 2. Cardiomegaly with likely chronic interstitial edema of the lung bases. 3. New hazy attenuation within the root of small bowel mesentery with shotty lymphadenopathy may represent mesenteric adenitis. Mild fatty atrophy of the pancreas. There is minimal hazy attenuation along the inferior margin the uncinate process. Correlate with pancreatic enzymes to assess for pancreatitis. Past Medical History Cardiovascular: CAD, CHF, HTN, Hyperlipidemia Pulmonary: Pneumonia CENTRAL NERVOUS SYSTEM: Carpal Tunnel Syndrome, Periperal neuropathy GI: GERD Heme/Onc: Cancer Psych: Anxiety Musculoskeletal: Osteoarthritis Infectious disease: No pertinent hx Renal/: No pertinent hx Endocrine: Diabetes, Hypothyroidism Past Surgical History Past Surgical History: Cholecystectomy, Mastectomy, Tubal Ligation, Tonsillectomy, Hysterectomy, Other Family History Family History: Heart Disease Social History ALCOHOL: none Drugs: None Current Problem List Problem List Problems Medical Problems: (1) Abnormal CT of the abdomen Status: Acute (2) Dyspnea Status: Acute Current Medications Current Medications Current Medications Sodium Chloride 1,000 ml @ 1,000 mls/hr Q1H IV Last administered on 12/22/19at 19:55; Start 12/22/19 at 18:19; Stop 12/22/19 at 19:18; Status DC Ondansetron HCl (Zofran) 4 mg PRN Q8HRS PRN IV NAUSEA/VOMITING; Start 12/22/19 at 22:15; Stop 12/23/19 at 22:14 Sodium Chloride 1,000 ml @ 100 mls/hr Q10H IV Last administered on 12/23/19at 00:30; Start 12/22/19 at 22:15; Stop 12/23/19 at 22:14 Active Scripts Active Colace (Docusate Sodium) 100 Mg Capsule 1 Cap PO BID 30 Days Alprazolam 0.25 Mg Tablet 1 Tab PO BID PRN Reported Citalopram Hbr (Citalopram Hydrobromide) 20 Mg Tablet 1 Tab PO DAILY08 Hydrocodone-Apap 7.5-325 (Hydrocodone Bit/Acetaminophen) 1 Tab Tablet 1 Tab PO Q4HRS PRN Furosemide 20 Mg Tablet 20 Mg PO BID Carvedilol (Carvedilol) 12.5 Mg Tablet 12.5 Mg PO BIDWMEALS Amiodarone Hcl 200 Mg Tablet 1 Tab PO DAILY Montelukast Sodium Tablet (Montelukast Sodium) 10 Mg Tablet 10 Mg PO HS Levothyroxine Sodium 100 Mcg Tablet 1 Tab PO DAILY Proair Hfa Inhaler (Albuterol Sulfate) 8.5 Gm Hfa.aer.ad 2 Puff IH PRN Q4-6HRS Tylenol (Acetaminophen) 325 Mg Tablet 650 Mg PO Fenofibrate (Fenofibrate Nanocrystallized) 145 Mg Tablet 1 Tab PO DAILY NEXT DOSE: 05/21/15 AM Humalog (Insulin Lispro) 100 Unit/1 Ml Vial 35 Unit SQ TID Lantus Solostar (Insulin Glargine,Hum.rec.anlog) 100 Unit/1 Ml Insuln.pen 50 Unit SQ HS Pantoprazole Sodium (Pantoprazole Sodium) 40 Mg Tablet.dr 40 Mg PO DAILY NEXT DOSE: 05/21/15 AM Atorvastatin Calcium 40 Mg Tablet 40 Mg PO HS Gabapentin (Gabapentin) 100 Mg Capsule 100 Mg PO BID NEXT DOSE: 05/20/15 PM Allergies Allergies: Coded Allergies: insulin glargine (Verified Allergy, Severe, "swelling", hospitalized [facility] ONLY, 09/27/19) allergy is [facility] ONLY, takes LANTUS [place] ROS Review of System CONSTITUTIONAL: No fever or chills EYES: No recent changes SKIN: No rash or itching CARDIOVASCULAR: No chest pain, syncope, palpitations, or edema RESPIRATORY: No SOB or cough GASTROINTESTINAL: No nausea, vomiting or abdominal pain NEUROLOGICAL: No headaches or weakness ENDOCRINE: No cold or heat intolerance GENITOURINARY: No urgency or frequency of urination MUSCULOSKELETAL: No back pain or joint pain LYMPHATICS: No enlarged lymph nodes PSYCHIATRIC: No anxiety or depression Physical Exam Physical Exam GENERAL: No apparent distress. Alert and oriented. HEENT: Head normocephalic, atraumatic. NECK: Supple LUNGS: Clear to auscultation. HEART: RRR, S1, S2 present, pulses intact ABDOMEN: Soft, positive bowel sounds. EXTREMITIES: No cyanosis or edema. NEUROLOGIC: Normal speech, normal tone PSYCHIATRIC: Normal affect, normal mood. SKIN: No ulceration. Vitals Vitals Vital Signs Date Time Temp Pulse Resp B/P (MAP) Pulse Ox O2 Delivery O2 Flow Rate FiO2 12/23/19 10:47 98.0 75 16 157/72 (100) 96 Nasal Cannula 2.0 98.0 Labs Labs Laboratory Tests Test 12/22/19 19:55 12/22/19 23:37 12/23/19 03:30 12/23/19 11:03 White Blood Count 7.1 x10^3/uL (4.0-11.0) 5.5 x10^3/uL (4.0-11.0) Red Blood Count 4.83 x10^6/uL (3.50-5.40) 4.43 x10^6/uL (3.50-5.40) Hemoglobin 11.3 g/dL (12.0-15.5) 10.2 g/dL (12.0-15.5) Hematocrit 36.0 % (36.0-47.0) 33.5 % (36.0-47.0) Mean Corpuscular Volume 75 fL (79-100) 76 fL (79-100) Mean Corpuscular Hemoglobin 23 pg (25-35) 23 pg (25-35) Mean Corpuscular Hemoglobin Concent 31 g/dL (31-37) 31 g/dL (31-37) Red Cell Distribution Width 19.0 % (11.5-14.5) 18.8 % (11.5-14.5) Platelet Count 202 x10^3/uL (140-400) 167 x10^3/uL (140-400) Neutrophils (%) (Auto) 66 % (31-73) 58 % (31-73) Lymphocytes (%) (Auto) 21 % (24-48) 31 % (24-48) Monocytes (%) (Auto) 12 % (0-9) 9 % (0-9) Eosinophils (%) (Auto) 1 % (0-3) 1 % (0-3) Basophils (%) (Auto) 1 % (0-3) 1 % (0-3) Neutrophils # (Auto) 4.7 x10^3/uL (1.8-7.7) 3.2 x10^3/uL (1.8-7.7) Lymphocytes # (Auto) 1.5 x10^3/uL (1.0-4.8) 1.7 x10^3/uL (1.0-4.8) Monocytes # (Auto) 0.8 x10^3/uL (0.0-1.1) 0.5 x10^3/uL (0.0-1.1) Eosinophils # (Auto) 0.0 x10^3/uL (0.0-0.7) 0.1 x10^3/uL (0.0-0.7) Basophils # (Auto) 0.0 x10^3/uL (0.0-0.2) 0.0 x10^3/uL (0.0-0.2) Prothrombin Time 13.5 SEC (11.7-14.0) Prothromb Time International Ratio 1.1 (0.8-1.1) Activated Partial Thromboplast Time 25 SEC (24-38) D-Dimer (Elsy) 0.55 ug/mlFEU (0.00-0.50) Sodium Level 139 mmol/L (136-145) 140 mmol/L (136-145) Potassium Level 4.2 mmol/L (3.5-5.1) 4.5 mmol/L (3.5-5.1) Chloride Level 102 mmol/L (98-107) 106 mmol/L (98-107) Carbon Dioxide Level 27 mmol/L (21-32) 25 mmol/L (21-32) Anion Gap 10 (6-14) 9 (6-14) Blood Urea Nitrogen 28 mg/dL (7-20) 27 mg/dL (7-20) Creatinine 1.8 mg/dL (0.6-1.0) 1.5 mg/dL (0.6-1.0) Estimated GFR (Cockcroft-Gault) 27.7 34.2 BUN/Creatinine Ratio 16 (6-20) Glucose Level 151 mg/dL (70-99) 220 mg/dL (70-99) Calcium Level 8.7 mg/dL (8.5-10.1) 8.2 mg/dL (8.5-10.1) Total Bilirubin 0.3 mg/dL (0.2-1.0) Aspartate Amino Transf (AST/SGOT) 24 U/L (15-37) Alanine Aminotransferase (ALT/SGPT) 40 U/L (14-59) Alkaline Phosphatase 68 U/L (46-116) Troponin I Quantitative < 0.017 ng/mL (0.000-0.055) CF-Qqi-O-Type Natriuretic Peptide 409 pg/mL (0-124) Total Protein 6.5 g/dL (6.4-8.2) Albumin 3.5 g/dL (3.4-5.0) Albumin/Globulin Ratio 1.2 (1.0-1.7) Lipase 304 U/L (73-393) Glucose (Fingerstick) 137 mg/dL (70-99) 186 mg/dL (70-99) Laboratory Tests Test 12/22/19 19:55 12/22/19 23:37 12/23/19 03:30 12/23/19 11:03 White Blood Count 7.1 x10^3/uL (4.0-11.0) 5.5 x10^3/uL (4.0-11.0) Red Blood Count 4.83 x10^6/uL (3.50-5.40) 4.43 x10^6/uL (3.50-5.40) Hemoglobin 11.3 g/dL (12.0-15.5) 10.2 g/dL (12.0-15.5) Hematocrit 36.0 % (36.0-47.0) 33.5 % (36.0-47.0) Mean Corpuscular Volume 75 fL (79-100) 76 fL (79-100) Mean Corpuscular Hemoglobin 23 pg (25-35) 23 pg (25-35) Mean Corpuscular Hemoglobin Concent 31 g/dL (31-37) 31 g/dL (31-37) Red Cell Distribution Width 19.0 % (11.5-14.5) 18.8 % (11.5-14.5) Platelet Count 202 x10^3/uL (140-400) 167 x10^3/uL (140-400) Neutrophils (%) (Auto) 66 % (31-73) 58 % (31-73) Lymphocytes (%) (Auto) 21 % (24-48) 31 % (24-48) Monocytes (%) (Auto) 12 % (0-9) 9 % (0-9) Eosinophils (%) (Auto) 1 % (0-3) 1 % (0-3) Basophils (%) (Auto) 1 % (0-3) 1 % (0-3) Neutrophils # (Auto) 4.7 x10^3/uL (1.8-7.7) 3.2 x10^3/uL (1.8-7.7) Lymphocytes # (Auto) 1.5 x10^3/uL (1.0-4.8) 1.7 x10^3/uL (1.0-4.8) Monocytes # (Auto) 0.8 x10^3/uL (0.0-1.1) 0.5 x10^3/uL (0.0-1.1) Eosinophils # (Auto) 0.0 x10^3/uL (0.0-0.7) 0.1 x10^3/uL (0.0-0.7) Basophils # (Auto) 0.0 x10^3/uL (0.0-0.2) 0.0 x10^3/uL (0.0-0.2) Prothrombin Time 13.5 SEC (11.7-14.0) Prothromb Time International Ratio 1.1 (0.8-1.1) Activated Partial Thromboplast Time 25 SEC (24-38) D-Dimer (Elsy) 0.55 ug/mlFEU (0.00-0.50) Sodium Level 139 mmol/L (136-145) 140 mmol/L (136-145) Potassium Level 4.2 mmol/L (3.5-5.1) 4.5 mmol/L (3.5-5.1) Chloride Level 102 mmol/L (98-107) 106 mmol/L (98-107) Carbon Dioxide Level 27 mmol/L (21-32) 25 mmol/L (21-32) Anion Gap 10 (6-14) 9 (6-14) Blood Urea Nitrogen 28 mg/dL (7-20) 27 mg/dL (7-20) Creatinine 1.8 mg/dL (0.6-1.0) 1.5 mg/dL (0.6-1.0) Estimated GFR (Cockcroft-Gault) 27.7 34.2 BUN/Creatinine Ratio 16 (6-20) Glucose Level 151 mg/dL (70-99) 220 mg/dL (70-99) Calcium Level 8.7 mg/dL (8.5-10.1) 8.2 mg/dL (8.5-10.1) Total Bilirubin 0.3 mg/dL (0.2-1.0) Aspartate Amino Transf (AST/SGOT) 24 U/L (15-37) Alanine Aminotransferase (ALT/SGPT) 40 U/L (14-59) Alkaline Phosphatase 68 U/L (46-116) Troponin I Quantitative < 0.017 ng/mL (0.000-0.055) TH-Ibj-K-Type Natriuretic Peptide 409 pg/mL (0-124) Total Protein 6.5 g/dL (6.4-8.2) Albumin 3.5 g/dL (3.4-5.0) Albumin/Globulin Ratio 1.2 (1.0-1.7) Lipase 304 U/L (73-393) Glucose (Fingerstick) 137 mg/dL (70-99) 186 mg/dL (70-99) VTE Prophylaxis Ordered VTE Prophylaxis Devices: Contraindicated VTE Pharmacological Prophylaxi: Yes Assessment/Plan Assessment/Plan ASSESSMENT Abdominal pain and bloating secondary to fluid collection in GB fossa. ? bile leak. Inferior right hepatic lobe abnormality could reflect a subcapsular hematoma versus developing intrahepatic abscess or neoplasm. Findings are limited in evaluation without intravenous contrast. CAD s/p PAULINE not on antplt therapy given hx of blood loss anemia hx of PE not on coumadin given bleed post sx. IVF filter in place CM with ejection fraction of 25%, status post AICD placement chronic obstructive pulmonary disease type 2 diabetes mellitus GERD HLD HTN CKD stae 3 with baseline creatine mid 1s Hx of blood loss anemia post sx, stable hb on admission of 10. PLAN gen sx consult HIDA scan restart home meds including insulin dvt ppx: scds. no heparin given prior beed full code dc pending imaging results, improvement in pain CARLINE CHAIREZ MD Dec 23, 2019 12:17
[2019-12-23] MEDS ORDERED: INSULIN REGULAR 100 UNIT/ML 3ML VIAL. SQ SCH (12:30)
[2019-12-23] MEDS: CARVEDILOL 12.5 MG TABLET. PO SCH ×2 (12:30→16:45)
[2019-12-23] MEDS ORDERED: FENOFIBRATE,MICRONIZED 134 MG CAPSULE PO SCH ×2 (12:30→21:00)
--- NOTE | 2019-12-23 12:57 | RAD ---
Examination: NM HEPATOBILIARY SCAN WO EF History: Abdominal pain. Cholecystectomy September 2019. Comparison/Correlation: 12/22/2019 CT abdomen and pelvis without contrast Findings: 5.5 mCi technetium 99m Choletec was intravenously administered for purposes of compatible eccentrically. Uptake of radiotracer involving the left hepatic lobe is relatively greater and nonspecific on initial images acquired. There is no definite biliary dilatation. Radiotracer is seen within the small bowel at 10 minutes. No gallbladder identified and this corresponds with the reported history. No extravasation of radiotracer identified on this exam to suggest bile leak. Impression: No suspicious process. Electronically signed by: Yosef Duval MD (12/23/2019 12:54 PM) [id number]
[2019-12-23] MEDS: PANTOPRAZOLE 40 MG TABLET.DR. PO SCH (13:34)
[2019-12-23] MEDS: GABAPENTIN 100 MG CAPSULE. PO SCH ×2 (13:34→21:45)
[2019-12-23] MEDS: LEVOTHYROXINE 100 MCG TABLET PO SCH (13:34)
[2019-12-23] MEDS: AMIODARONE HCL 200 MG TABLET. PO SCH (13:34)
[2019-12-23] MEDS: FUROSEMIDE 20 MG TABLET PO SCH (13:34)
[2019-12-23] MEDS: CITALOPRAM 20 MG TABLET. PO SCH (13:35)
[2019-12-23] MEDS: INSULIN LISPRO 300 UNITS/3 ML VIAL. SQ SCH ×2 (13:40→17:10)
[2019-12-23] MEDS ORDERED: INSULIN GLARGINE SYRINGE. SQ SCH (21:00)
[2019-12-23] MEDS ORDERED: ATORVASTATIN CALCIUM 40 MG TABLET. PO SCH (21:00)
[2019-12-23] MEDS ORDERED: MONTELUKAST SODIUM 10 MG TABLET. PO SCH (21:00)
[2019-12-23] MEDS: DOCUSATE SODIUM 100 MG CAPSULE. PO SCH (21:45)
[2019-12-24 03:00] VITALS: BP 137/67
[2019-12-24] MEDS: PANTOPRAZOLE 40 MG TABLET.DR. PO SCH (06:13)
[2019-12-24] MEDS: LEVOTHYROXINE 100 MCG TABLET PO SCH (06:13)
[2019-12-24 07:00] VITALS: BP 160/79
[2019-12-24] MEDS: CARVEDILOL 12.5 MG TABLET. PO SCH (08:00)
[2019-12-24] MEDS: CITALOPRAM 20 MG TABLET. PO SCH (08:28)
[2019-12-24] MEDS: GABAPENTIN 100 MG CAPSULE. PO SCH (08:28)
[2019-12-24] MEDS: AMIODARONE HCL 200 MG TABLET. PO SCH (08:28)
[2019-12-24] MEDS: FUROSEMIDE 20 MG TABLET PO SCH (08:29)
[2019-12-24] MEDS: DOCUSATE SODIUM 100 MG CAPSULE. PO SCH (08:29)
[2019-12-24] MEDS: INSULIN LISPRO 300 UNITS/3 ML VIAL. SQ SCH ×2 (08:33→12:31)
--- NOTE | 2019-12-24 10:09 | PDOC ---
PROGRESS NOTES Subjective Subjective pt comfortable, denies much pain; on further questioning her pain seemed to be closest to the prior drain site Objective Objective Vital Signs Date Time Temp Pulse Resp B/P (MAP) Pulse Ox O2 Delivery O2 Flow Rate FiO2 12/24/19 08:28 74 137/67 12/24/19 07:00 97.6 18 99 Nasal Cannula 2.0 97.6 Intake and Output 12/24/19 07:00 Intake Total 300 ml Balance 300 ml Intake Oral 300 ml # Voids 7 Physical Exam Abdomen: Soft (currently nontender) Assessment Assessment Problems Medical Problems: (1) Abnormal CT of the abdomen Status: Acute (2) Dyspnea Status: Acute Plan Plan of Care HIDA scan normal, clinically looks well, benign abdomen; do not suspect acute abdominal process, prior CT findings most consistent with postoperative changes and prior surgicel pack (hemostatic agent); would recommend contrasted CT abdomen/pelvis when creatinine improved to better visualize liver (see prior CT report) Comment Review of Relevant I have reviewed the following items juliette (where applicable) has been applied. Labs Laboratory Tests Test 12/22/19 19:55 12/22/19 23:37 12/23/19 03:30 12/23/19 11:03 White Blood Count 7.1 x10^3/uL (4.0-11.0) 5.5 x10^3/uL (4.0-11.0) Red Blood Count 4.83 x10^6/uL (3.50-5.40) 4.43 x10^6/uL (3.50-5.40) Hemoglobin 11.3 g/dL (12.0-15.5) 10.2 g/dL (12.0-15.5) Hematocrit 36.0 % (36.0-47.0) 33.5 % (36.0-47.0) Mean Corpuscular Volume 75 fL (79-100) 76 fL (79-100) Mean Corpuscular Hemoglobin 23 pg (25-35) 23 pg (25-35) Mean Corpuscular Hemoglobin Concent 31 g/dL (31-37) 31 g/dL (31-37) Red Cell Distribution Width 19.0 % (11.5-14.5) 18.8 % (11.5-14.5) Platelet Count 202 x10^3/uL (140-400) 167 x10^3/uL (140-400) Neutrophils (%) (Auto) 66 % (31-73) 58 % (31-73) Lymphocytes (%) (Auto) 21 % (24-48) 31 % (24-48) Monocytes (%) (Auto) 12 % (0-9) 9 % (0-9) Eosinophils (%) (Auto) 1 % (0-3) 1 % (0-3) Basophils (%) (Auto) 1 % (0-3) 1 % (0-3) Neutrophils # (Auto) 4.7 x10^3/uL (1.8-7.7) 3.2 x10^3/uL (1.8-7.7) Lymphocytes # (Auto) 1.5 x10^3/uL (1.0-4.8) 1.7 x10^3/uL (1.0-4.8) Monocytes # (Auto) 0.8 x10^3/uL (0.0-1.1) 0.5 x10^3/uL (0.0-1.1) Eosinophils # (Auto) 0.0 x10^3/uL (0.0-0.7) 0.1 x10^3/uL (0.0-0.7) Basophils # (Auto) 0.0 x10^3/uL (0.0-0.2) 0.0 x10^3/uL (0.0-0.2) Prothrombin Time 13.5 SEC (11.7-14.0) Prothromb Time International Ratio 1.1 (0.8-1.1) Activated Partial Thromboplast Time 25 SEC (24-38) D-Dimer (Elsy) 0.55 ug/mlFEU (0.00-0.50) Sodium Level 139 mmol/L (136-145) 140 mmol/L (136-145) Potassium Level 4.2 mmol/L (3.5-5.1) 4.5 mmol/L (3.5-5.1) Chloride Level 102 mmol/L (98-107) 106 mmol/L (98-107) Carbon Dioxide Level 27 mmol/L (21-32) 25 mmol/L (21-32) Anion Gap 10 (6-14) 9 (6-14) Blood Urea Nitrogen 28 mg/dL (7-20) 27 mg/dL (7-20) Creatinine 1.8 mg/dL (0.6-1.0) 1.5 mg/dL (0.6-1.0) Estimated GFR (Cockcroft-Gault) 27.7 34.2 BUN/Creatinine Ratio 16 (6-20) Glucose Level 151 mg/dL (70-99) 220 mg/dL (70-99) Calcium Level 8.7 mg/dL (8.5-10.1) 8.2 mg/dL (8.5-10.1) Total Bilirubin 0.3 mg/dL (0.2-1.0) Aspartate Amino Transf (AST/SGOT) 24 U/L (15-37) Alanine Aminotransferase (ALT/SGPT) 40 U/L (14-59) Alkaline Phosphatase 68 U/L (46-116) Troponin I Quantitative < 0.017 ng/mL (0.000-0.055) DW-Yxc-[id number]-Type Natriuretic Peptide 409 pg/mL (0-124) Total Protein 6.5 g/dL (6.4-8.2) Albumin 3.5 g/dL (3.4-5.0) Albumin/Globulin Ratio 1.2 (1.0-1.7) Lipase 304 U/L (73-393) Glucose (Fingerstick) 137 mg/dL (70-99) 186 mg/dL (70-99) Test 12/23/19 16:12 12/23/19 20:51 12/24/19 07:34 Glucose (Fingerstick) 133 mg/dL (70-99) 103 mg/dL (70-99) 154 mg/dL (70-99) Laboratory Tests Test 12/23/19 11:03 12/23/19 16:12 12/23/19 20:51 12/24/19 07:34 Glucose (Fingerstick) 186 mg/dL (70-99) 133 mg/dL (70-99) 103 mg/dL (70-99) 154 mg/dL (70-99) Medications Current Medications Sodium Chloride 1,000 ml @ 1,000 mls/hr Q1H IV Last administered on 12/22/19at 19:55; Start 12/22/19 at 18:19; Stop 12/22/19 at 19:18; Status DC Ondansetron HCl (Zofran) 4 mg PRN Q8HRS PRN IV NAUSEA/VOMITING; Start 12/22/19 at 22:15; Stop 12/23/19 at 22:14; Status DC Sodium Chloride 1,000 ml @ 100 mls/hr Q10H IV Last administered on 12/23/19at 13:41; Start 12/22/19 at 22:15; Stop 12/23/19 at 22:14; Status DC Alprazolam (Xanax) 0.25 mg PRN BID PRN PO ANXIETY / AGITATION Last administered on 12/23/19at 13:33; Start 12/23/19 at 12:00 Amiodarone HCl (Cordarone) 200 mg DAILY PO Last administered on 12/24/19 08:28; Start 12/23/19 at 12:30 Atorvastatin Calcium (Lipitor) 40 mg HS PO Last administered on 12/23/19at 21:46; Start 12/23/19 at 21:00 Carvedilol (Coreg) 12.5 mg BIDWMEALS PO ; Start 12/23/19 at 12:30 Citalopram Hydrobromide (CeleXA) 20 mg DAILY08 PO Last administered on 12/24/19at 08:28; Start 12/23/19 at 12:30 Docusate Sodium (Colace) 100 mg BID PO Last administered on 12/24/19at 08:29; Start 12/23/19 at 21:00 Furosemide (Lasix) 20 mg BID92 PO Last administered on 12/24/19at 08:29; Start 12/23/19 at 14:00 Gabapentin (Neurontin) 100 mg BID PO Last administered on 12/24/19at 08:28; Start 12/23/19 at 12:30 Acetaminophen/ Hydrocodone Bitart (Lortab 7.5/325) 1 tab PRN Q4HRS PRN PO PAIN; Start 12/23/19 at 12:00 Insulin Human Regular (HumuLIN R VIAL) 35 unit TIDWMEALS SQ ; Start 12/23/19 at 12:30; Status Cancel Levothyroxine Sodium (Synthroid) 100 mcg DAILY06 PO Last administered on 12/24/19at 06:13; Start 12/23/19 at 12:30 Montelukast Sodium (Singulair) 10 mg HS PO Last administered on 12/23/19at 21:45; Start 12/23/19 at 21:00 Pantoprazole Sodium (Protonix) 40 mg DAILYAC PO Last administered on 12/24/19at 06:13; Start 12/23/19 at 12:30 Fenofibrate (Lofibra) 134 mg DAILY PO ; Start 12/23/19 at 12:30; Stop 12/23/19 at 15:37; Status DC Insulin Glargine (Lantus Syringe) 50 unit QHS SQ Last administered on 12/23/19at 21:52; Start 12/23/19 at 21:00 Insulin Human Lispro (HumaLOG) 35 units TIDWMEALS SQ Last administered on 12/24/19at 08:33; Start 12/23/19 at 12:30 Fenofibrate (Lofibra) 134 mg HS PO Last administered on 12/23/19at 21:45; Start 12/23/19 at 21:00 Active Scripts Active Colace (Docusate Sodium) 100 Mg Capsule 1 Cap PO BID 30 Days Alprazolam 0.25 Mg Tablet 1 Tab PO BID PRN Reported Citalopram Hbr (Citalopram Hydrobromide) 20 Mg Tablet 1 Tab PO DAILY08 Hydrocodone-Apap 7.5-325 (Hydrocodone Bit/Acetaminophen) 1 Tab Tablet 1 Tab PO Q4HRS PRN Furosemide 20 Mg Tablet 20 Mg PO BID Carvedilol (Carvedilol) 12.5 Mg Tablet 12.5 Mg PO BIDWMEALS Amiodarone Hcl 200 Mg Tablet 1 Tab PO DAILY Montelukast Sodium Tablet (Montelukast Sodium) 10 Mg Tablet 10 Mg PO HS Levothyroxine Sodium 100 Mcg Tablet 1 Tab PO DAILY Proair Hfa Inhaler (Albuterol Sulfate) 8.5 Gm Hfa.aer.ad 2 Puff IH PRN Q4-6HRS Tylenol (Acetaminophen) 325 Mg Tablet 650 Mg PO Fenofibrate (Fenofibrate Nanocrystallized) 145 Mg Tablet 1 Tab PO DAILY NEXT DOSE: 05/21/15 AM Humalog (Insulin Lispro) 100 Unit/1 Ml Vial 35 Unit SQ TID Lantus Solostar (Insulin Glargine,Hum.rec.anlog) 100 Unit/1 Ml Insuln.pen 50 Unit SQ HS Pantoprazole Sodium (Pantoprazole Sodium) 40 Mg Tablet.dr 40 Mg PO DAILY NEXT DOSE: 05/21/15 AM Atorvastatin Calcium 40 Mg Tablet 40 Mg PO HS Gabapentin (Gabapentin) 100 Mg Capsule 100 Mg PO BID NEXT DOSE: 05/20/15 PM Vitals/I & O Vital Sign - Last 24 Hours 12/23/19 12/23/19 12/23/19 12/23/19 10:47 13:34 15:04 19:00 Temp 98.0 97.5 97.4 98.0 97.5 97.4 Pulse 75 75 81 76 Resp 16 20 B/P (MAP) 157/72 (100) 157/72 120/53 (75) 115/50 (71) Pulse Ox 96 95 99 O2 Delivery Nasal Cannula Nasal Cannula O2 Flow Rate 2.0 2.0 12/23/19 12/23/19 12/24/19 12/24/19 20:00 23:00 03:00 07:00 Temp 97.8 97.6 97.6 97.8 97.6 97.6 Pulse 77 74 77 Resp 16 18 B/P (MAP) 137/65 (89) 137/67 (90) 160/79 (106) Pulse Ox 100 98 99 O2 Delivery Room Air Nasal Cannula O2 Flow Rate 2.0 12/24/19 12/24/19 08:00 08:28 Pulse 74 74 B/P (MAP) 137/67 137/67 Intake and Output 12/23/19 12/23/19 12/24/19 15:00 23:00 07:00 Intake Total 300 ml Balance 300 ml OSVALDO FREED MD Dec 24, 2019 10:09
[2019-12-24 11:00] VITALS: BP 162/75
--- NOTE | 2019-12-24 11:50 | PDOC3 ---
Discharge Summary Visit Information Date of Admission: Dec 22, 2019 Date of Discharge: Dec 24, 2019 Final Diagnosis Problems Medical Problems: (1) Abnormal CT of the abdomen Status: Acute (2) Dyspnea Status: Acute Brief Hospital Course Allergies Allergies Coded Allergies Type Severity Reaction Last Updated Verified insulin glargine Allergy Severe "swelling", hospitalized [facility] ONLY 09/27/19 Yes Vital Signs GENERAL: No apparent distress. Alert and oriented. HEENT: Head normocephalic, atraumatic. NECK: Supple LUNGS: Clear to auscultation. HEART: RRR, S1, S2 present, pulses intact ABDOMEN: Soft, positive bowel sounds. EXTREMITIES: No cyanosis or edema. NEUROLOGIC: Normal speech, normal tone PSYCHIATRIC: Normal affect, normal mood. SKIN: No ulceration. Vital Signs Date Time Temp Pulse Resp B/P (MAP) Pulse Ox O2 Delivery O2 Flow Rate FiO2 12/24/19 08:28 74 137/67 12/24/19 08:00 Room Air 12/24/19 07:00 97.6 18 99 2.0 97.6 Lab Results Laboratory Tests Test 12/22/19 19:55 12/22/19 23:37 12/23/19 03:30 12/23/19 11:03 White Blood Count 7.1 x10^3/uL (4.0-11.0) 5.5 x10^3/uL (4.0-11.0) Red Blood Count 4.83 x10^6/uL (3.50-5.40) 4.43 x10^6/uL (3.50-5.40) Hemoglobin 11.3 g/dL (12.0-15.5) 10.2 g/dL (12.0-15.5) Hematocrit 36.0 % (36.0-47.0) 33.5 % (36.0-47.0) Mean Corpuscular Volume 75 fL (79-100) 76 fL (79-100) Mean Corpuscular Hemoglobin 23 pg (25-35) 23 pg (25-35) Mean Corpuscular Hemoglobin Concent 31 g/dL (31-37) 31 g/dL (31-37) Red Cell Distribution Width 19.0 % (11.5-14.5) 18.8 % (11.5-14.5) Platelet Count 202 x10^3/uL (140-400) 167 x10^3/uL (140-400) Neutrophils (%) (Auto) 66 % (31-73) 58 % (31-73) Lymphocytes (%) (Auto) 21 % (24-48) 31 % (24-48) Monocytes (%) (Auto) 12 % (0-9) 9 % (0-9) Eosinophils (%) (Auto) 1 % (0-3) 1 % (0-3) Basophils (%) (Auto) 1 % (0-3) 1 % (0-3) Neutrophils # (Auto) 4.7 x10^3/uL (1.8-7.7) 3.2 x10^3/uL (1.8-7.7) Lymphocytes # (Auto) 1.5 x10^3/uL (1.0-4.8) 1.7 x10^3/uL (1.0-4.8) Monocytes # (Auto) 0.8 x10^3/uL (0.0-1.1) 0.5 x10^3/uL (0.0-1.1) Eosinophils # (Auto) 0.0 x10^3/uL (0.0-0.7) 0.1 x10^3/uL (0.0-0.7) Basophils # (Auto) 0.0 x10^3/uL (0.0-0.2) 0.0 x10^3/uL (0.0-0.2) Prothrombin Time 13.5 SEC (11.7-14.0) Prothromb Time International Ratio 1.1 (0.8-1.1) Activated Partial Thromboplast Time 25 SEC (24-38) D-Dimer (Elsy) 0.55 ug/mlFEU (0.00-0.50) Sodium Level 139 mmol/L (136-145) 140 mmol/L (136-145) Potassium Level 4.2 mmol/L (3.5-5.1) 4.5 mmol/L (3.5-5.1) Chloride Level 102 mmol/L (98-107) 106 mmol/L (98-107) Carbon Dioxide Level 27 mmol/L (21-32) 25 mmol/L (21-32) Anion Gap 10 (6-14) 9 (6-14) Blood Urea Nitrogen 28 mg/dL (7-20) 27 mg/dL (7-20) Creatinine 1.8 mg/dL (0.6-1.0) 1.5 mg/dL (0.6-1.0) Estimated GFR (Cockcroft-Gault) 27.7 34.2 BUN/Creatinine Ratio 16 (6-20) Glucose Level 151 mg/dL (70-99) 220 mg/dL (70-99) Calcium Level 8.7 mg/dL (8.5-10.1) 8.2 mg/dL (8.5-10.1) Total Bilirubin 0.3 mg/dL (0.2-1.0) Aspartate Amino Transf (AST/SGOT) 24 U/L (15-37) Alanine Aminotransferase (ALT/SGPT) 40 U/L (14-59) Alkaline Phosphatase 68 U/L (46-116) Troponin I Quantitative < 0.017 ng/mL (0.000-0.055) VE-Crv-Q-Type Natriuretic Peptide 409 pg/mL (0-124) Total Protein 6.5 g/dL (6.4-8.2) Albumin 3.5 g/dL (3.4-5.0) Albumin/Globulin Ratio 1.2 (1.0-1.7) Lipase 304 U/L (73-393) Glucose (Fingerstick) 137 mg/dL (70-99) 186 mg/dL (70-99) Test 12/23/19 16:12 12/23/19 20:51 12/24/19 07:34 12/24/19 11:34 Glucose (Fingerstick) 133 mg/dL (70-99) 103 mg/dL (70-99) 154 mg/dL (70-99) 148 mg/dL (70-99) Laboratory Tests Test 12/23/19 16:12 12/23/19 20:51 12/24/19 07:34 12/24/19 11:34 Glucose (Fingerstick) 133 mg/dL (70-99) 103 mg/dL (70-99) 154 mg/dL (70-99) 148 mg/dL (70-99) Brief Hospital Course 69 year old female s/p lap moraima in Sep with hematoma post with drain in place. was on antiplt therapy but had blood loss anemia so stopped. she has a hx of coronary artery disease, status post drug-eluting stents to left anterior descending. she also has a hx of bilateral PE on coumadin which was stopped due to blood loss anemia back in Oct. She has a history of cancer, Noted hx of congestive heart failure with an ejection fraction of 25%, status post AICD placement that is stable. she presents today with pain in abdomen. noted pain since sx but improved but worsened 2 weeks ago. mostly located in RUQ. reports gas and bloating. no nausea vomiting diarrhea. no urinary symptoms. no fevers. tolerating PO diet. called for admission due to pain . H AND H STABLE AT 10.[address] abdomen done and is as follows: 1. Status post cholecystectomy with fluid collection in the gallbladder fossa. Along the inferior aspect of the right hepatic lobe, there may be subcapsular fluid collection versus intrahepatic mass. Findings could reflect postoperative changes with postoperative seroma in the gallbladder fossa. However, correlation with patient's history is recommended. Correlate with bile leak. Inferior right hepatic lobe abnormality could reflect a subcapsular hematoma versus developing intrahepatic abscess or neoplasm. Findings are limited in evaluation without intravenous contrast. 2. Cardiomegaly with likely chronic interstitial edema of the lung bases. 3. New hazy attenuation within the root of small bowel mesentery with shotty lymphadenopathy may represent mesenteric adenitis. Mild fatty atrophy of the pancreas. There is minimal hazy attenuation along the inferior margin the uncinate process. Correlate with pancreatic enzymes to assess for pancreatitis. ASSESSMENT Abdominal pain and bloating secondary to fluid collection in GB fossa. ? bile leak. Inferior right hepatic lobe abnormality could reflect a subcapsular hematoma versus developing intrahepatic abscess or neoplasm. Findings are limited in evaluation without intravenous contrast. CAD s/p PAULINE not on antplt therapy given hx of blood loss anemia hx of PE not on coumadin given bleed post sx. IVF filter in place CM with ejection fraction of 25%, status post AICD placement chronic obstructive pulmonary disease type 2 diabetes mellitus GERD HLD HTN CKD stae 3 with baseline creatine mid 1s Hx of blood loss anemia post sx, stable hb on admission of 10. course: patient admitted. CT scan as above. HIDA scan done and normal. exam on discharge nl. no acute process suspected. prior CT findings most consistent with postoperative changes and prior surgicel pack (hemostatic agent); would recommend contrasted CT abdomen/pelvis when creatinine improved to better visualize liver (see prior CT report). suspect msk pain. patient can be discharge home in stable condition. no change in meds Discharge Information Condition at Discharge: Improved Disposition/Orders: D/C to Home Scheduled Albuterol Sulfate (Proair Hfa Inhaler) 8.5 Gm Hfa.aer.ad, 2 PUFF IH PRN Q4-6HRS, #1 (Reported) Entered as Reported by: Lise Tobin on 05/20/15 1429 Last Action: Reviewed on 12/23/1919 by OBI GLOVER Amiodarone Hcl (Amiodarone Hcl) 200 Mg Tablet, 1 TAB PO DAILY for hypertension, #90 Ref 1 (Reported) Entered as Reported by: OBI GLOVER on 12/23/1919 Last Action: Continued on 12/23/191156 by CARLINE CHAIREZ MD Atorvastatin Calcium (Atorvastatin Calcium) 40 Mg Tablet, 40 MG PO HS for FOR CHOLESTEROL, #30 Ref 0 (Reported) Entered as Reported by: ANY VILLANUEVA on 04/08/14 1121 Last Action: Continued on 12/23/191156 by CARLINE CHAIREZ MD Carvedilol (Carvedilol ) 12.5 Mg Tablet, 12.5 MG PO BIDWMEALS for CARDIAC, (Reported) Entered as Reported by: OBI GLOVER on 12/23/1919 Last Taken: UNKNOWN on Unknown Date & Time Last Action: Continued on 12/23/191156 by CARLINE CHAIREZ MD Citalopram Hydrobromide (Citalopram Hbr) 20 Mg Tablet, 1 TAB PO DAILY08 for depression, #30 Ref 5 (Reported) Entered as Reported by: OBI GLOVER on 12/23/1919 Last Taken: UNKNOWN on Unknown Date & Time Last Action: Continued on 12/23/191156 by CARLINE CHAIREZ MD Docusate Sodium (Colace) 100 Mg Capsule, 1 CAP PO BID for constipation for 30 Days, #60 Ref 0 Prescribed by: SUSHANT BEDOLLA on 10/14/19 0933 Last Action: Continued on 12/23/191156 by CARLINE CHAIREZ MD Fenofibrate Nanocrystallized (Fenofibrate) 145 Mg Tablet, 1 TAB PO DAILY, #30 Ref 5 (Reported) NEXT DOSE: 05/21/15 AM Entered as Reported by: JUAN CARLOS PINEDA on 05/14/15 0906 Last Action: Converted on 12/23/191156 by CARLINE CHAIREZ MD Furosemide (Furosemide) 20 Mg Tablet, 20 MG PO BID for chf, (Reported) Entered as Reported by: OBI GLOVER on 12/23/19 0020 Last Action: Continued on 12/23/191156 by CARLINE CHAIREZ MD Gabapentin (Gabapentin ) 100 Mg Capsule, 100 MG PO BID, (Reported) NEXT DOSE: 05/20/15 PM Entered as Reported by: ANY VILLANUEVA on 04/08/141120 Last Action: Continued on 12/23/191156 by CARLINE CHAIREZ MD Insulin Glargine,Hum.rec.anlog (Lantus Solostar) 100 Unit/1 Ml Insuln.pen, 50 UNIT SQ HS for dm, (Reported) Entered as Reported by: ANY VILLANUEVA on 04/08/141120 Last Action: Converted on 12/23/191156 by CARLINE CHAIREZ MD Insulin Lispro (Humalog) 100 Unit/1 Ml Vial, 35 UNIT SQ TID, (Reported) Entered as Reported by: ANY VILLANUEVA on 04/08/141120 Last Action: Continued on 12/23/191156 by CARLINE CHAIREZ MD Levothyroxine Sodium (Levothyroxine Sodium) 100 Mcg Tablet, 1 TAB PO DAILY, #30 Ref 5 (Reported) Entered as Reported by: TANMAY CUADRA on 05/26/16 0644 Last Action: Continued on 12/23/197 by CARLINE CHAIREZ MD Montelukast Sodium (Montelukast Sodium Tablet ) 10 Mg Tablet, 10 MG PO HS for FOR ASTHMA, #30 Ref 0 (Reported) Entered as Reported by: ROSMERY PENA on 11/30/17 0720 Last Action: Continued on 12/23/197 by CARLINE CHAIREZ MD Pantoprazole Sodium (Pantoprazole Sodium ) 40 Mg Tablet.dr, 40 MG PO DAILY, (Reported) NEXT DOSE: 05/21/15 AM Entered as Reported by: ANY VILLANUEVA on 04/08/14 1121 Last Action: Continued on 12/23/19 1157 by CARLINE CHAIREZ MD Scheduled PRN Alprazolam (Alprazolam) 0.25 Mg Tablet, 1 TAB PO BID PRN for ANXIETY / AGITA TION, #30 Prescribed by: JOSE M MACKAY on 10/02/19 1351 Last Action: Continued on 12/23/197 by CARLINE CHAIREZ MD Hydrocodone Bit/Acetaminophen (Hydrocodone-Apap 7.5-325 ) 1 Tab Tablet, 1 TAB PO Q4HRS PRN for PAIN, Ref 0 (Reported) Entered as Reported by: OBI GLOVER on 12/23/19 0020 Last Taken: UNKNOWN on Unknown Date & Time Last Action: Continued on 12/23/191156 by CARLINE CHAIREZ MD Miscellaneous Medications Acetaminophen (Tylenol) 325 Mg Tablet, 650 MG PO, (Reported) Entered as Reported by: JUAN CARLOS PINEDA on 05/14/15 0919 Last Action: Reviewed on 12/23/19 0004 by CARLINE CARDONA MD Dec 24, 2019 11:50
== END 2019-12-24 14:16 | disposition home or self-care (01) | DRG 919 ==
LOC: ER 18:03 → 4 NORTH 22:17
PROVIDERS: ADMIT Internal Medicine; ATTEND Internal Medicine
DX: K91.870 Postprocedural hematoma of a digestive system organ or structure following a digestive system procedure (principal); K75.0 Abscess of liver; N17.9 Acute kidney failure, unspecified; I13.0 Hypertensive heart and chronic kidney disease with heart failure and stage 1 through stage 4 chronic kidney disease, or unspecified chronic kidney disease; R18.8 Other ascites; K21.9 Gastro-esophageal reflux disease without esophagitis; E03.9 Hypothyroidism, unspecified; E11.22 Type 2 diabetes mellitus with diabetic chronic kidney disease; E78.00 Pure hypercholesterolemia, unspecified; E78.5 Hyperlipidemia, unspecified; F32.9 Major depressive disorder, single episode, unspecified; F41.9 Anxiety disorder, unspecified; I25.10 Atherosclerotic heart disease of native coronary artery without angina pectoris; I50.9 Heart failure, unspecified; J44.9 Chronic obstructive pulmonary disease, unspecified; K59.00 Constipation, unspecified; K86.89 Other specified diseases of pancreas; D50.0 Iron deficiency anemia secondary to blood loss (chronic); M19.90 Unspecified osteoarthritis, unspecified site; E11.42 Type 2 diabetes mellitus with diabetic polyneuropathy; Z79.4 Long term (current) use of insulin; Z79.899 Other long term (current) drug therapy; Z85.3 Personal history of malignant neoplasm of breast; Z86.711 Personal history of pulmonary embolism; Z90.12 Acquired absence of left breast and nipple; Z90.49 Acquired absence of other specified parts of digestive tract; Z90.710 Acquired absence of both cervix and uterus; Z95.5 Presence of coronary angioplasty implant and graft; Z95.810 Presence of automatic (implantable) cardiac defibrillator; Z87.01 Personal history of pneumonia (recurrent); Z98.51 Tubal ligation status; N18.3 Chronic kidney disease, stage 3 (moderate); Y83.8 Other surgical procedures as the cause of abnormal reaction of the patient, or of later complication, without mention of misadventure at the time of the procedure; Y92.89 Other specified places as the place of occurrence of the external cause
CPT/HCPCS: 36415; 71045; 74176; 78226; 80048; 80053; 82962; 83690; 83880; 84484; 85025; 85379; 85610; 85730; 93005; 96361; 96365; 96374; 96375; 99285; A9537; J1815; J7030; G0378

== ENCOUNTER → 2020-01-27 | Outpatient (CLI) | payer MEDICARE, BC ==
[~2020-01-27] MED LIST changes: +AMIO200T4 PO; +CITA20TA6 PO; +HYDR-2765 PO
--- NOTE | 2020-01-27 08:29 | RAD ---
CHEST PA LATERAL History: Shortness of breath. Acute pulmonary embolism. Comparison: December 22, 2019 Findings: Patchy right mid and bibasilar opacities. No pleural effusion. No pneumothorax. Unchanged heart size. Stable right-sided pacemaker/ICD. Surgical clips upper abdomen. Impression: 1. Patchy right mid and bibasilar opacities, may represent atelectasis or developing consolidations. Recommend follow-up. Electronically signed by: Zack Figueroa DO (01/27/2020 8:26 AM) [id number]
--- NOTE | 2020-01-27 09:11 | RAD ---
Examination: Nuclear medicine Perfusion scan. Clinical History: shortness of breath. Technique: 5.4 mCi of Tc 99m MAA was administered intravenously and spot views were obtained on the gamma camera for a Nuclear Medicine perfusion examination. Findings: Perfusion images are homogeneous without perfusion defects. This is very low probability for pulmonary embolism based on the modified PIOPED criteria. Impression: Very low probability for pulmonary embolism. Electronically signed by: Leo Poe MD (01/27/2020 9:08 AM) [id number]
== END | disposition home or self-care (01) ==
LOC: NM 08:25
PROVIDERS: ATTEND Physician Assistant Medical
DX: C50.512 Malignant neoplasm of lower-outer quadrant of left female breast (principal); I26.99 Other pulmonary embolism without acute cor pulmonale; Z17.0 Estrogen receptor positive status [ER+]
CPT/HCPCS: 71046; 78580; A9540; 96374

== ENCOUNTER 2020-02-18 08:23 | Outpatient (CLI) | payer MEDICARE, BC ==
[~2020-02-18] VITALS: Ht 160 cm; Wt 92.1 kg
[2020-02-18] VITALS (7 sets, daily range): BP systolic 114–175; BP diastolic 55–84
[2020-02-18 08:49] LABS: BASO # 0.1 x10^3/uL (0.0-0.2); BASO % 1 % (0-3); EOS # 0.1 x10^3/uL (0.0-0.7); EOS % 1 % (0-3); HEMATOCRIT 37.4 % (36.0-47.0); HEMOGLOBIN 11.7 g/dL (12.0-15.5); LYMPH # 0.8 x10^3/uL (1.0-4.8); LYMPH % 11 % (24-48); MEAN CORPUSCULAR HEMOGLOBIN 23 pg (25-35); MEAN CORPUSCULAR HGB CONC 31 g/dL (31-37); MEAN CORPUSCULAR VOLUME 73 fL (79-100); MONO # 0.7 x10^3/uL (0.0-1.1); MONO % 8 % (0-9); NEUT # 6.3 x10^3/uL (1.8-7.7); NEUT % 79 % (31-73); PLATELET COUNT 205 x10^3/uL (140-400); RED BLOOD COUNT 5.12 x10^6/uL (3.50-5.40); RED CELL DISTRIBUTION WIDTH 20.1 % (11.5-14.5); WHITE BLOOD COUNT 7.9 x10^3/uL (4.0-11.0)
[2020-02-18] MEDS ORDERED: SACU1TAB4 PO (08:54)
[2020-02-18] MEDS ORDERED: ASPI-630 PO (08:54)
[2020-02-18 08:58] LABS: PROTHROMBIN TIME PATIENT 12.6 SEC (11.7-14.0)
[2020-02-18] MEDS ORDERED: LIDOCAINE WITH 8.4% SOD BICARB 3 ML DISP.SYRIN. ONE (09:05)
[2020-02-18 09:09] LABS: ANISOCYTOSIS SLIGHT; HYPOCHROMIA SLIGHT; OVALOCYTES FEW; PLT ESTIMATE ADEQUATE (ADEQUATE); POLYCHROMASIA SLIGHT
[2020-02-18 09:10] LABS: CREATININE 1.4 mg/dL (0.6-1.0); GFR 37.1; MICROCYTOSIS MOD; POTASSIUM 4.5 mmol/L (3.5-5.1)
[2020-02-18] MEDS ORDERED: IOHEXOL 240 MG/ML 50ML VIAL. ONE (09:16)
[2020-02-18] MEDS ORDERED: fentaNYL PF VIAL 100 MCG/2 ML VIAL ONE (09:27)
[2020-02-18] MEDS ORDERED: MIDAZOLAM HCL/PF 2 MG/2 ML VIAL. ONE (09:27)
[2020-02-18] MEDS ORDERED: IOHEXOL 240 MG/ML 50ML VIAL. IJ ONE (09:45)
[2020-02-18] MEDS ORDERED: fentaNYL PF VIAL 100 MCG/2 ML VIAL IV ONE (09:45)
[2020-02-18] MEDS ORDERED: MIDAZOLAM HCL/PF 2 MG/2 ML VIAL. IV ONE (09:45)
[2020-02-18] MEDS ORDERED: LIDOCAINE WITH 8.4% SOD BICARB 3 ML DISP.SYRIN. IJ ONE (09:45)
--- NOTE | 2020-02-18 11:33 | RAD ---
02/18/2020 Procedures: 1. Inferior vena cavogram. 2. Inferior vena cava filter retrieval. The procedure was explained in its entirety to the patient or the patients designated development representative by a member of the treatment team, including a discussion of the risks, benefits and commonly accepted alternatives to the procedure, as well as the expected consequences of no therapy whatsoever. 4 IVC filter retrieval, discussion includes inability to remove the filter, filter fracture, filter migration, or caval injury. Discussion of the risks included, but was not limited to, those that are most frequent and those that are rare but possibly severe or life-threatening, as well as the possibility of unforeseen complications. Ultrasound Guided Access: The right neck was prepped and draped using maximal sterile technique and one percent lidocaine was used for local anesthesia. The right internal jugular vein is identified and is patent. A singlewall puncture was made into the <<right internal jugular vein under ultrasound guidance. An ultrasound image was saved and sent to PACS. Sheath was advanced into the IVC and a venogram obtained. [Normal. IVC filter is identified and there is no thrombus identified.>> IVC filter retrieval: Next, under fluoroscopic guidance, a <<retrieval sheath and [snare>>] were utilized to remove the Bard Tammy IVC filter intact without complication. The sheath was removed. Manual pressure was held. No immediate complications were identified. The filter was inspected found to be intact. Total fluoroscopy time: 5.9 min Dose area product: 123 Gycm2 The procedures performed under conscious sedation including continuous cardiopulmonary monitoring via dedicated sedation nurse. [id number] sedation time: 26 minutes Impression: 1. Successful IVC filter removal. 2. Unremarkable Inferior vena cavogram.
--- NOTE | 2020-02-18 11:41 | NUR ---
Discharge Note: VALENTINO SINGH Discharge instructions and discharge home medications reviewed with Patient and a copy given. All questions have been answered and understanding verbalized. The following instructions and handouts were given: incision care and adult moderate sedation Discontinued lines and drains: Peripheral IV intact. Patient discharged to Home or Self Care withFamily Membera Wheelchair
== END 2020-02-18 11:45 | disposition home or self-care (01) ==
LOC: INTRAD 08:23
PROVIDERS: ATTEND Surgery
DX: Z45.09 Encounter for adjustment and management of other cardiac device (principal); Z79.01 Long term (current) use of anticoagulants
CPT/HCPCS: 36415; 37193; 80048; 85025; 85610; 85730; 99152; 99153; C1880; C1892; C1894; J2250; J3010; J3490; Q9966

== ENCOUNTER 2020-02-22 21:25 | Inpatient (IN) | payer MEDICARE, BC ==
[~2020-02-22] VITALS: Ht 160 cm; Wt 103.8 kg
[~2020-02-22 21:25] MED LIST changes: +ASPI-630 PO
--- NOTE | 2020-02-22 21:43 | PHYS DOC ---
Past Medical History Past Medical History: Cancer, COPD, Diabetes-Type II, High Cholesterol, H ypertension, Hypothyroid, NH Additional Past Medical Histor: BREAST CA Past Surgical History: Cholecystectomy, Hysterectomy, Pacemaker, Tonsillectomy, Other Additional Past Surgical Histo: CARDIAC STENT, FEMORAL STENT, LEFT MASTECTOMY, IVC filter removal Smoking Status: Never Smoker Alcohol Use: None Drug Use: None General Adult EDM: Chief Complaint: SHORTNESS OF BREATH HPI: HPI: Patient is a 69 year old female presents with report of progressive shortness of air over the past week. Patient also reports "feeling ill ". Reports recently had IVC filter removed. Reports associated dizziness, headache, and chest discomfort. Denies leg swelling or calf tenderness. Denies fever or chills. Denies known exposure to COVID-19. Review of Systems: Review of Systems: Constitutional: Denies fever or chills; reports generalized malaise Eyes: Denies redness or eye pain HENT: Denies nasal congestion or sore throat Respiratory: Reports shortness of breath and dyspnea with exertion Cardiovascular: Reports chest pain; denies palpitations GI: Denies abdominal pain, nausea, or vomiting : Denies dysuria or hematuria Musculoskeletal: Denies back pain or joint pain Integument: Denies rash or skin lesions Neurologic: Reports headache and dizziness; denies focal weakness or sensory changes Complete systems were reviewed and found to be within normal limits, except as documented in this note. Heart Score: HEART Score for Chest Pain: HEART Score for Chest Pain Response (Comments) Value History Moderately Suspicious 1 ECG Normal 0 Age > 65 2 Risk Factors >3 Risk Factors or Hx CAD 2 Troponin < Normal Limit 0 Total 5 Risk Factors: Risk Factors: DM, Current or recent (<one month) smoker, HTN, HLP, family history of CAD, obesity. Risk Scores: Score 0 - 3: 2.5% MACE over next 6 weeks - Discharge Home Score 4 - 6: 20.3% MACE over next 6 weeks - Admit for Clinical Observation Score 7 - 10: 72.7% MACE over next 6 weeks - Early Invasive Strategies Allergies: Allergies: Allergies Coded Allergies Type Severity Reaction Last Updated Verified insulin glargine Allergy Severe "swelling", hospitalized [facility] ONLY 09/27/19 Yes Physical Exam: PE: Constitutional: Well developed, well nourished, no acute distress, non-toxic appearance HENT: Normocephalic, atraumatic Eyes: Conjunctiva normal, no discharge Neck: Normal range of motion, no tenderness, supple Cardiovascular: Heart rate normal, regular rhythm Lungs & Thorax: No respiratory distress, equal chest rise and fall Abdomen: Soft, no tenderness Skin: Warm, dry, no erythema, no rash Extremities: No tenderness, ROM intact, no edema Neurologic: Alert and oriented X 3, no focal deficits noted Psychologic: Affect normal, judgment normal EKG: EKG: @2137 NSR at 96bpm, NO ST elevation, QRS 92ms, QT/QTc 398/510ms, Q wave III Radiology/Procedures: Radiology/Procedures: PROCEDURE: CHEST AP ONLY EXAM: CHEST 1 VIEW History: Chest pain COMPARISON: 01/27/2020 TECHNIQUE: Single portable radiograph of the chest FINDINGS: Mild cardiomegaly unchanged. Mild diffuse prominent appearing bilateral interstitial lung markings likely mild congestive changes. Right-sided Port-A-Cath with AICD again identified. IMPRESSION: Mild bibasilar congestive changes or interstitial infiltrates.. Electronically signed by: Leo Poe MD (02/22/2020 11:31 PM) [id number] Course & Med Decision Making: Course & Med Decision Making Pertinent Labs and Imaging studies reviewed. (See chart for details) Patient presents with report of shortness of air and feeling ill for the past week. Patient also reporting some chest discomfort. EKG stable. Labs obtained and posted to chart. Initial troponin within normal limits. D-dimer elevated. Creatinine elevated and therefore unable to obtain CT angio. VQ scan ordered. Chest x-ray without acute process. Cannot fully exclude COVID-19. COVID-[address] and testing obtained. HEART score 5. Patient requiring admission for further evaluation and treatment. Discussed with Dr. Hawkins (hospitalist) who is in agreement with admission. Discussed findings and plan with patient, who acknowledges understanding and agreement. COVID-19 CRITERIA: The patient was evaluated during the global COVID-19 pandemic, and that diagnosis was suspected/considered upon their initial presentation. Their evaluation, treatment and testing was consistent with current guidelines for patients who present with complaints or symptoms that may be related to COVID-19. Dragon Disclaimer: Dragon Disclaimer: This electronic medical record was generated, in whole or in part, using a voice recognition dictation system. Departure Departure Impression: Primary Impression: Chest pain Qualified Codes: R07.9 - Chest pain, unspecified Additional Impressions: Suspected 2019 novel coronavirus infection Elevated d-dimer Disposition: ADMITTED INPATIENT Admitting Physician: KARLA Mendoza) Condition: STABLE Referrals: YARELI GOEL (PCP) Justicifation of Admission Dx: Justifications for Admission: Justification of Admission Dx: Yes Comments: Chest pain, COVID 19 PUI, Elevated d-dimer COVID-19 Assessment: COVID-19 Patient Risks: Age 65 or older: Yes Sign of co-morbidity: Yes Exp to person + for COVID: No Exp to PUI: No Travel from affected area: No Lower respiratory symptoms: Yes Fever: No PPE Use: Full PPE with N95 mask or PAPR: Yes DALIA WALL DO Feb 22, 2020 21:43
[2020-02-22] MEDS ORDERED: ASPIRIN 325 MG TABLET PO ONE (22:30)
[2020-02-22 22:31] LABS: BASO % 0 % (0-3); EOS # 0.1 x10^3/uL (0.0-0.7); EOS % 1 % (0-3); HEMATOCRIT 32.4 % (36.0-47.0); HEMOGLOBIN 10.2 g/dL (12.0-15.5); LYMPH # 0.7 x10^3/uL (1.0-4.8); LYMPH % 7 % (24-48); MEAN CORPUSCULAR HEMOGLOBIN 23 pg (25-35); MEAN CORPUSCULAR HGB CONC 32 g/dL (31-37); MEAN CORPUSCULAR VOLUME 74 fL (79-100); MONO # 0.9 x10^3/uL (0.0-1.1); MONO % 9 % (0-9); NEUT # 8.5 x10^3/uL (1.8-7.7); NEUT % 83 % (31-73); PLATELET COUNT 196 x10^3/uL (140-400); RED CELL DISTRIBUTION WIDTH 19.7 % (11.5-14.5); WHITE BLOOD COUNT 10.1 x10^3/uL (4.0-11.0)
[2020-02-22 22:39] LABS: PROTHROMBIN TIME PATIENT 13.8 SEC (11.7-14.0)
[2020-02-22 22:41] LABS: CALCIUM 8.4 mg/dL (8.5-10.1); CREATININE 1.5 mg/dL (0.6-1.0); GFR 34.2; POTASSIUM 3.8 mmol/L (3.5-5.1)
[2020-02-22 22:42] LABS: D-DIMER 0.74 ug/mlFEU (0.00-0.50)
[2020-02-22 22:47] LABS: ALBUMIN 2.9 g/dL (3.4-5.0); ALBUMIN/GLOBULIN RATIO 0.8 (1.0-1.7); MAGNESIUM 1.7 mg/dL (1.8-2.4); TOTAL BILIRUBIN 0.6 mg/dL (0.2-1.0); TOTAL PROTEIN 6.5 g/dL (6.4-8.2)
[2020-02-22 22:55] LABS: CREATINE KINASE 57 U/L (26-192)
[2020-02-22] MEDS ORDERED: ACETAMINOPHEN 500 MG TABLET PO ONE (23:00)
[2020-02-22 23:08] LABS: INFLUENZA A PATIENT NEGATIVE (NEGATIVE); INFLUENZA B PATIENT NEGATIVE (NEGATIVE)
--- NOTE | 2020-02-22 23:34 | RAD ---
EXAM: CHEST 1 VIEW History: Chest pain COMPARISON: 01/27/2020 TECHNIQUE: Single portable radiograph of the chest FINDINGS: Mild cardiomegaly unchanged. Mild diffuse prominent appearing bilateral interstitial lung markings likely mild congestive changes. Right-sided Port-A-Cath with AICD again identified. IMPRESSION: Mild bibasilar congestive changes or interstitial infiltrates.. Electronically signed by: Leo Poe MD (02/22/2020 11:31 PM) [id number]
[2020-02-23] MEDS ORDERED: DEXTROSE 50% 25 GM / 50ML DISP.SYRIN. IV PRN (00:45)
[2020-02-23] MEDS ORDERED: ONDANSETRON PF 4 MG/2 ML VIAL. IV PRN (00:45)
--- NOTE | 2020-02-23 06:16 | EKG ---
[facility] [address] [place] [address] Test Date: 2020-02-22 Test Time: 21:37:04 Pat Name: VALENTINO SINGH Department: Room: ED HOLD 1 Gender: F Technical Manager: : [id number] Requested By: DALIA WALL Order Number: [id number] Reading MD: Baron Bro Measurements Intervals [place] Rate: 96 P: 59 AL: 164 QRS: 62 QRSD: 92 T: 55 QT: 398 QTc: 510 Interpretive Statements SINUS RHYTHM QRS(T) CONTOUR ABNORMALITY CONSISTENT WITH ANTEROSEPTAL INFARCT AGE UNDETERMINED ABNORMAL ECG Electronically Signed On 03-15-2020 10:30:09 CDT by Baron Bro
[2020-02-23] MEDS: INSULIN LISPRO 300 UNITS/3 ML VIAL. SQ SCH ×3 (09:13→16:43)
[2020-02-23] MEDS ORDERED: MAGNESIUM SULFATE 2GM 50 ML IV ONE (09:15)
--- NOTE | 2020-02-23 09:15 | PDOC2 ---
SHWETA NUÑEZ SENIOR ADMINISTRATOR SUPPORT 02/23/20 0915: CARDIAC CONSULT DATE OF CONSULT Date of Consult DATE: 02/23/20 TIME: 08:57 REASON FOR CONSULT Reason for Consult: Chest pain REFERRING PHYSICIAN Referring Physician: Dr. Bowden SOURCE Source: Chart review, Patient HISTORY OF PRESENT ILLNESS HISTORY OF PRESENT ILLNESS This is a 69 yo female who presented secondary to shortness of breath. Patient reports having IVC filter removed last week. Has not felt well since. Has been experiencing dizziness, SOA, and nausea. Occasionally gets a pain in her central chest that last for brief second and resolved without intervention. PAST MEDICAL HISTORY Past Medical History Cardiovascular: CAD, CHF, HTN, Hyperlipidemia Pulmonary: Pneumonia CENTRAL NERVOUS SYSTEM: Carpal Tunnel Syndrome, Periperal neuropathy GI: GERD Heme/Onc: Cancer Psych: Anxiety Musculoskeletal: Osteoarthritis Infectious disease: No pertinent hx Renal/: No pertinent hx Endocrine: Diabetes, Hypothyroidism PAST SURGICAL HISTORY Past Surgical History Mastectomy, Tubal Ligation, Tonsillectomy, Hysterectomy, Alanna FAMILY HISTORY Family History: Heart Disease SOCIAL HISTORY Social History ALCOHOL: none Drugs: None Lives: Alone Domestic Violence: Neg CURRENT MEDICATIONS CURRENT MEDICATIONS Current Medications Medications (Trade) Dose Ordered Sig/Lester Route PRN Reason Start Time Stop Time Status Last Admin Dose Admin Acetaminophen (Tylenol) 500 mg 1X ONCE PO 02/22/20 23:00 02/22/20 23:01 DC 02/22/20 22:34 ALLERGIES ALLERGIES: Coded Allergies: insulin glargine (Verified Allergy, Severe, "swelling", hospitalized [facility] ONLY, 09/27/19) allergy is [facility] ONLY, takes LANTUS [place] ROS Review of System 14 point ROS conducted with pertinent positives noted above in HPI PHYSICAL EXAM General: Alert, Oriented X3, Cooperative, No acute distress HEENT: Atraumatic, Mucous membr. moist/pink Lungs: Clear to auscultation Heart: Regular rate, Normal S1, Normal S2 Abdomen: Soft, No tenderness Extremities: No edema, Normal pulses Skin: No significant lesion Neuro: Normal speech, Sensation intact Psych/Mental Status: Mental status NL, Mood NL MUSCULOSKELETAL: Osteoarthritic changes both hands VITALS/I&O VITALS/I&O: Vital Signs Date Time Temp Pulse Resp B/P (MAP) Pulse Ox O2 Delivery O2 Flow Rate FiO2 02/23/20 07:08 96 19 163/72 (102) 98 Nasal Cannula 3.0 02/22/20 21:30 98.2 98.2 LABS Lab: Laboratory Tests Test 02/22/20 22:05 02/22/20 22:21 02/23/20 03:20 02/23/20 06:20 White Blood Count 10.1 x10^3/uL (4.0-11.0) Red Blood Count 4.40 x10^6/uL (3.50-5.40) Hemoglobin 10.2 g/dL (12.0-15.5) L Hematocrit 32.4 % (36.0-47.0) L Mean Corpuscular Volume 74 fL (79-100) L Mean Corpuscular Hemoglobin 23 pg (25-35) L Mean Corpuscular Hemoglobin Concent 32 g/dL (31-37) Red Cell Distribution Width 19.7 % (11.5-14.5) H Platelet Count 196 x10^3/uL (140-400) Neutrophils (%) (Auto) 83 % (31-73) H Lymphocytes (%) (Auto) 7 % (24-48) L Monocytes (%) (Auto) 9 % (0-9) Eosinophils (%) (Auto) 1 % (0-3) Basophils (%) (Auto) 0 % (0-3) Neutrophils # (Auto) 8.5 x10^3/uL (1.8-7.7) H Lymphocytes # (Auto) 0.7 x10^3/uL (1.0-4.8) L Monocytes # (Auto) 0.9 x10^3/uL (0.0-1.1) Eosinophils # (Auto) 0.1 x10^3/uL (0.0-0.7) Basophils # (Auto) 0.0 x10^3/uL (0.0-0.2) Prothrombin Time 13.8 SEC (11.7-14.0) Prothrombin Time INR 1.1 (0.8-1.1) Activated Partial Thromboplast Time 31 SEC (24-38) D-Dimer (Elsy) 0.74 ug/mlFEU (0.00-0.50) H Sodium Level 136 mmol/L (136-145) Potassium Level 3.8 mmol/L (3.5-5.1) Chloride Level 99 mmol/L (98-107) Carbon Dioxide Level 27 mmol/L (21-32) Anion Gap 10 (6-14) Blood Urea Nitrogen 21 mg/dL (7-20) H Creatinine 1.5 mg/dL (0.6-1.0) H Estimated GFR (Cockcroft-Gault) 34.2 BUN/Creatinine Ratio 14 (6-20) Glucose Level 249 mg/dL (70-99) H Calcium Level 8.4 mg/dL (8.5-10.1) L Magnesium Level 1.7 mg/dL (1.8-2.4) L Total Bilirubin 0.6 mg/dL (0.2-1.0) Aspartate Amino Transferase (AST) 25 U/L (15-37) Alanine Aminotransferase (ALT) 33 U/L (14-59) Alkaline Phosphatase 66 U/L (46-116) Creatine Kinase 57 U/L (26-192) Creatine Kinase MB (Mass) 0.8 ng/mL (0.0-3.6) Creatine Kinase MB Relative Index % (0-4) Troponin I Quantitative < 0.017 ng/mL (0.000-0.055) < 0.017 ng/mL (0.000-0.055) < 0.017 ng/mL (0.000-0.055) BT-Cbw-P-Type Natriuretic Peptide 917 pg/mL (0-124) H Total Protein 6.5 g/dL (6.4-8.2) Albumin 2.9 g/dL (3.4-5.0) L Albumin/Globulin Ratio 0.8 (1.0-1.7) L Lipase 122 U/L (73-393) Influenza Type A Antigen Negative (NEGATIVE) Influenza Type B Antigen Negative (NEGATIVE) Test 02/23/20 08:04 Glucose (Fingerstick) 187 mg/dL (70-99) H Laboratory Tests 02/22/20 22:05 Laboratory Tests 02/22/20 22:05 ECHOCARDIOGRAM ECHOCARDIOGRAM <Conclusion> The Left Ventricle is borderline dilated. The ejection fraction is moderately impaired. The Ejection Fraction is 30-35%. There is global hypokinesis of the left ventricle. There is no significant aortic valvular stenosis. Doppler and Color Flow revealed no significant aortic regurgitation. Doppler and Color Flow revealed trace mitral valve regurgitation. Doppler and Color Flow revealed trace tricuspid valve regurgitation. DATE: 10/18/18 1537 <Conclusion> Left ventricle systolic function is severely. The Ejection Fraction is 20-25%. There is moderate to severe global hypokinesis. There is a device lead in the right ventricle. Doppler and Color Flow revealed mild tricuspid regurgitation. The PA pressure was estimated at 35-40 mmHg. DATE: 09/30/19 0858 HEART CATH HEART CATH FINDINGS 1. Hemodynamics: Left ventricle end-diastolic pressure 10 mmHg. No pullback gradient across the aortic valve. 2. Left ventriculography: Moderate to severe left ventricle systolic dysfunction with ejection fraction estimated at 25-30%. No significant mitral regurgitation seen. 3. Coronary angiography: a. The left main coronary artery arose from the left sinus of Valsalva, gave rise to the left anterior descending and left circumflex arteries and did not show any significant stenosis. b. The left anterior descending artery showed widely patent stent in the proximal to midsegment. The first diagonal branch which is a small-caliber vessel showed 80% proximal segment stenosis. c. The left circumflex artery did not show any significant stenosis. d. The right coronary artery was a large and dominant vessel arising from the right sinus of Valsalva that did not show any significant stenosis. Conclusion 1. Widely patent previously placed stent in left anterior descending artery and 80% stenosis in small-caliber diagonal branch (described in prior cardiac catheterization) without any other significant stenosis. 2. Moderate to severe left ventricle systolic dysfunction with ejection fraction estimated at 25-30% Recommendations Medical Therapy DATE: 10/22/18 1500 ASSESSMENT/PLAN ASSESSMENT/PLAN 1. Chest pain; atypical. AMI ruled out. Cardiac catheterization 10/2018 showed patent LAD stent and 80% stenosis in small-caliber diagonal branch, which was noted in prior cardiac catheterization and is being medically managed. 2. Acute respiratory failure with possible PE. VQ with intermediated probability for PE 3. Severe ICM/NICM: EF at 20-25%. s/p AICD ([place] A). Device check. On Entresto 4. H/o VT with ICD discharge. On Amiodarone for rhythm maintenance 5. DM2/HLP: Continue current treatment 6. CAD: s/p PCI/LAD, with recent cardiac catheterization results noted above. 7. PAD: s/p percutaneous revascularization. stable 8. CKD; Cr stable per review 9. HTN: controlled 10. H/o PE s/p IVC filter. This was removed 02/18/20. Has been off OAC 11. Hypomagnesemia Recommendations Replace Mg Continue amiodarone for rhythm maintenance. Secondary prevention measures Add imdur Consider outpatient ischemic evaluation OAC as per PCP Supportive care CATIE LÓPEZ MD 02/23/20 1709: CARDIAC CONSULT ASSESSMENT/PLAN ASSESSMENT/PLAN Patient seen and examined. Agree with CONSERVATION ENFORCEMENT OFFICER's assessment and plan. Chest pain with atypical features. Myocardial infarction has been ruled out. Recent cardiac catheterization results noted above, without any lesions needing intervention s/p recent IVC filter removal, presenting with shortness of breath. VQ scan intermediate probability for PE. Treat per pulmonary team. Chronic systolic heart failure clinically well compensated Recent device check showed normal function Continue amiodarone for VT suppression Thank you for your consultation. SHWETA NUÑEZ APRN Feb 23, 2020 09:15 CATIE LÓPEZ MD Feb 23, 2020 17:09
--- NOTE | 2020-02-23 11:43 | RAD ---
NUCLEAR MEDICINE PERFUSION ONLY SCAN History: Chest pain, shortness of air since IVC filter removed last week. Elevated d-dimer. Comparison: AP chest, prior day. Nuclear medicine perfusion scan January 27, 2020. Technique: Perfusion portion performed after intravenous administration of mCi Technetium 99m MAA. Multiple projection planar images of the lungs were obtained. Findings: Ventilation imaging is not performed due to aerosolized droplet precautions. There is a large perfusion defect of the basilar right lower lobe. Tracer distribution is otherwise mildly heterogeneous. IMPRESSION: Large perfusion defect of the basilar right lower lobe. Study is intermediate or high probability for pulmonary embolus. Electronically signed by: Archie Mancilla MD (02/23/2020 11:40 AM) [id number]
--- NOTE | 2020-02-23 11:50 | HP ---
ADMIT DATE: 02/23/2020 CHIEF COMPLAINT: Weakness, chest discomfort, shortness of breath. HISTORY OF PRESENT ILLNESS: The patient is a pleasant 69-year-old female who has multiple comorbidities including COPD, breast cancer, permanent pacemaker, heart failure. Basically, she presented today with shortness of breath and weakness, been occurring for several days. Moving makes it worse and sitting still makes it better. She also has an elevated D-dimer, we were concerned she might have COVID-19. We are going to admit the patient and consult Cardiology. PAST MEDICAL HISTORY: CAD and she has previous stents, pacemaker, breast cancer, cholecystectomy, hysterectomy, tonsillectomy, hyperlipidemia, hypertension, hypothyroidism, femoral stent, left mastectomy. ALLERGIES: INSULIN. FAMILY HISTORY: Coronary artery disease. SOCIAL HISTORY: She quit smoking. No drink or drugs. MEDICATIONS: Reviewed, please refer to the MRAD. REVIEW OF SYSTEMS: GENERAL: No history of weight change, weakness or fevers. SKIN: No bruising, hair changes or rashes. EYES: No blurred, double or loss of vision. NOSE AND THROAT: No history of nosebleeds, hoarseness or sore throat. HEART: No history of palpitations, chest pain or shortness of breath on exertion. PULMONARY: The patient complains of shortness of breath. GASTROINTESTINAL: Denies changes in appetite, nausea, vomiting, diarrhea or constipation. GENITOURINARY: No history of frequency, urgency, hesitancy or nocturia. NEUROLOGIC: Denies history of numbness, tingling, tremor or weakness. PSYCHIATRIC: No history of panic, anxiety or depression. ENDOCRINE: No history of heat or cold intolerance, polyuria or polydipsia. EXTREMITIES: Denies muscle weakness, joint pain, pain on walking or stiffness. PHYSICAL EXAMINATION: PHYSICAL EXAMINATION: VITALS: Within normal limits and are stable. GENERAL: No apparent distress. Alert and oriented. HEENT: Normal cephalic atraumatic, external auditory canals are patent EYES: Extraocular muscles are intact, pupils are equally round and reactive to light and accommodation MUSCULOSKELETAL: Well developed, well nourished, good range of motion ENDOCRINE: No thyromegaly was palpated LYMPHATICS: No cervical chain or axillary nodes were noted HEMATOPOIETIC: No bruising NECK: Supple, no JVD, no thyromegaly was noted. PULMONARY: The patient has decreased breath sounds. HEART: RRR, S1, S2 present. Peripheral pulses intact, no obvious murmurs were noted. ABDOMEN: Soft, nontender. Positive bowel sounds no organomegaly, normal bowel sounds. EXTREMITIES: Without any cyanosis, clubbing, or edema. Pedal pulses intact, Homans sign is negative. NEUROLOGIC: Normal speech, normal tone. A & O x3, moves all extremities, no obvious focal deficits. PSYCHIATRIC: Normal affect, normal mood. Stable. SKIN: No ulcerations or rashes, good skin turgor, no jaundice. VASCULAR: Good capillary refill, neurovascular bundle appears to be intact. LABORATORY DATA: Troponin was 0. BNP is 917. D-dimer was high at 0.74. Hemoglobin is 10.2. Influenza testing is negative. Chest x-ray shows mild bibasilar vascular congestion. ASSESSMENT AND PLAN: Respiratory failure, suspect multifactorial including acute on chronic systolic and diastolic heart failure, chronic obstructive pulmonary disease, possible COVID-19. The patient is being admitted to the COVID-19 unit where swabbing her for COVID-19. We will give her IV Lasix. Serial enzymes, serial EKGs, cardiac monitoring, home meds, deep venous thrombosis prophylaxis. Full code. PROGNOSIS: Guarded. LAVELLE PETERSON DO DR: PREETHI/kenneth JOB#: [id number] / [id number]
[2020-02-23] MEDS: DOCUSATE SODIUM 100 MG CAPSULE. PO SCH ×2 (14:00→21:32)
[2020-02-23] MEDS: GABAPENTIN 100 MG CAPSULE. PO SCH ×2 (14:28→21:33)
[2020-02-23] MEDS: AMIODARONE HCL 200 MG TABLET. PO SCH (14:29)
[2020-02-23] MEDS: LEVOTHYROXINE 100 MCG TABLET PO SCH (14:29)
[2020-02-23] MEDS: SACUBITRIL/VALSARTAN 49/51MG TABLET. PO SCH (14:29)
[2020-02-23] MEDS: FUROSEMIDE 20 MG TABLET PO SCH (14:29)
[2020-02-23] MEDS: FENOFIBRATE,MICRONIZED 134 MG CAPSULE PO SCH (14:29)
[2020-02-23] MEDS: CITALOPRAM 20 MG TABLET. PO SCH (14:29)
[2020-02-23] MEDS ORDERED: HEPARIN for IV BOLUS 10,000 UNIT/10 ML VIAL. IV ONE (14:30)
[2020-02-23] MEDS ORDERED: HEPARIN for IV BOLUS 10,000 UNIT/10 ML VIAL. IV PRN ×2 (14:30)
--- NOTE | 2020-02-23 14:45 | CONS ---
DATE OF CONSULTATION: PULMONARY CONSULTATION ATTENDING PHYSICIAN: Keith Hawkins DO. REASON FOR CONSULTATION: Pulmonary embolism. HISTORY OF PRESENT ILLNESS: The patient is a 69-year-old obese patient with a BMI of 35. She has no significant tobacco history. She has cardiomyopathy with an EF of 20%-25%. She also has history of pulmonary embolism, which was in 2019. She was taken off her anticoagulation after her V/Q scan did not reveal any persistent pulmonary embolism. She also had an IVC filter, which the Hematology recommended to be removed. The patient's Dopplers were negative and followup V/Q scan was negative for PE. The patient underwent a removal of IVC filter on the 02/17. She says since then she has been short of breath, she has been feeling lightheaded and dizzy. Denies any chest pain. She has a mild cough. No fever, no chills. Her D-dimer was elevated. As a result, she underwent imaging study. Only the perfusion scan was performed. I have reviewed perfusion scan. There is a large perfusion defect of the right lower lobe. Ventilation scan was simultaneously not performed. Her chest x-ray does not reveal any consolidation in the right lower lobe. Previous V/Q scan did not have any perfusion defect. The patient was seen in the Emergency Room. She is currently on oxygen with a saturation of 98% on 3 liters. PAST MEDICAL HISTORY: Significant for history of pulmonary embolism in 2019, which was subsequently resolved and was taken off of anticoagulation. History of IVC filter, which was also removed on 02/18/2020. History of coronary artery disease with an EF of 20%-25%, history of previous stents. History of breast cancer, cholecystectomy, hysterectomy, tonsillectomy. Hyperlipidemia, hypertension, hypothyroidism, and left mastectomy. PAST SURGICAL HISTORY: As discussed above. ALLERGIES: INSULIN. FAMILY HISTORY: Coronary artery disease. SOCIAL HISTORY: She does not smoke cigarettes. MEDICATIONS: Reviewed as listed in the MRAD. REVIEW OF SYSTEMS: Twelve-point system obtained. Pertinent positives discussed in my history of present illness, otherwise noncontributory. All systems that were negative were reviewed as well. PHYSICAL EXAMINATION: GENERAL: She is in no obvious respiratory distress. VITAL SIGNS: Blood pressure is 163/72, pulse ox 98% on 3 liters. She is afebrile. HEENT: Sclerae nonicteric. NECK: Supple. LUNGS: With diminished breath sounds. CARDIOVASCULAR: With a regular rate. ABDOMEN: Soft, obese. EXTREMITIES: With 1+ pitting edema. LABORATORY DATA: Reviewed. White cell count 10.1, hemoglobin 10.2, and platelets are 196. Her BUN is 21 and a creatinine of 1.5. Her D-dimer was 0.74. IMPRESSION: 1. Dyspnea with acute hypoxic respiratory failure. Likely secondary to recurrent pulmonary embolism. Her V/Q scan shows a large perfusion defect in the right lower lobe. There is no definite consolidation on the plain chest x-ray. Ventilation scan was not performed. The previous perfusion scan, which was done on 01/27/2020 had no significant perfusion defects. She has now IVC filter removal and has become symptomatic since the filter has been removed. 2. No significant tobacco history. 3. Cardiomyopathy with an ejection fraction of 20%-25% with possible mild congestive heart failure. She has severe global hypokinesis. She is status post stents. 4. 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 5. History of breast cancer with prior left mastectomy. 6. Abnormal CXR with possible faint mild interstitial infiltrates. The patient is on amiodarone. We will also assess for any amiodarone-induced interstitial infiltrates or interstitial lung disease. ct chest once ruled out for COVID-19 RECOMMENDATIONS: 1. We will initiate full-dose anticoagulation. 2. Continue Lasix. 3. Once creatinine improves, then we will consider CT angiogram. 4. We will also obtain venous Dopplers of lower extremities. 5. The patient is on amiodarone. We will also assess for any amiodarone-induced interstitial infiltrates or interstitial lung disease. 6. Continue oxygen to keep saturation 92 and above. 7. Discussed with RN and discussed with RT and ER physician. Critical care time 37 minutes. The patient was seen in the ER. WONG METZGER MD DR: KYE/kenneth JOB#: [id number] / [id number] WOOD
[2020-02-23 15:00] VITALS: BP 143/58
[2020-02-23] MEDS: ASPIRIN CHEWABLE 81 MG TABLET. PO SCH (15:04)
[2020-02-23] MEDS: HEPARIN 25,000UTS/250ML PREMIX 250 ML IV PRN (15:08)
--- NOTE | 2020-02-23 15:37 | NUR ---
SW following. Reviewed chart and spoke with RN. RN stated no SW needs identified. COVID results pending. Pt from home on 3. SW requested that RN order a 6 min walk to assess for 02 needs at discharge.
[2020-02-23] MEDS: PANTOPRAZOLE 40 MG TABLET.DR. PO SCH (16:42)
[2020-02-23] MEDS ORDERED: INSULIN LISPRO 300 UNITS/3 ML VIAL. SQ ONE (16:45)
[2020-02-23 19:00] VITALS: BP 134/62
[2020-02-23] MEDS: ATORVASTATIN CALCIUM 40 MG TABLET. PO SCH (21:32)
[2020-02-23] MEDS: MONTELUKAST SODIUM 10 MG TABLET. PO SCH (21:33)
[2020-02-23] MEDS: INSULIN GLARGINE SYRINGE. SQ SCH (21:34)
[2020-02-23] MEDS: ACETAMINOPHEN 325 MG TABLET. PO PRN (21:41)
[2020-02-23 23:00] VITALS: BP 114/61
[2020-02-24] VITALS (7 sets, daily range): BP systolic 101–129; BP diastolic 50–72
[2020-02-24] MEDS: HEPARIN 25,000UTS/250ML PREMIX 250 ML IV PRN ×2 (04:34→21:19)
[2020-02-24] MEDS: LEVOTHYROXINE 100 MCG TABLET PO SCH (06:10)
[2020-02-24] MEDS: CITALOPRAM 20 MG TABLET. PO SCH (08:48)
[2020-02-24] MEDS: AMIODARONE HCL 200 MG TABLET. PO SCH (08:48)
[2020-02-24] MEDS: GABAPENTIN 100 MG CAPSULE. PO SCH ×2 (08:48→21:01)
[2020-02-24] MEDS: FUROSEMIDE 20 MG TABLET PO SCH ×2 (08:48→15:03)
[2020-02-24] MEDS: DOCUSATE SODIUM 100 MG CAPSULE. PO SCH ×3 (08:48→21:01)
[2020-02-24] MEDS: SACUBITRIL/VALSARTAN 49/51MG TABLET. PO SCH (08:48)
[2020-02-24] MEDS: FENOFIBRATE,MICRONIZED 134 MG CAPSULE PO SCH (08:48)
[2020-02-24] MEDS: PANTOPRAZOLE 40 MG TABLET.DR. PO SCH (08:48)
[2020-02-24] MEDS: ISOSORBIDE MONONITRATE ER 30 MG TAB.ER.24H PO SCH (08:49)
[2020-02-24] MEDS: ASPIRIN CHEWABLE 81 MG TABLET. PO SCH (08:49)
[2020-02-24] MEDS: INSULIN LISPRO 300 UNITS/3 ML VIAL. SQ SCH ×5 (08:50→18:29)
[2020-02-24 11:03] LABS: CALCIUM 7.9 mg/dL (8.5-10.1); CREATININE 1.4 mg/dL (0.6-1.0); GFR 37.1; POTASSIUM 4.1 mmol/L (3.5-5.1)
--- NOTE | 2020-02-24 11:20 | PDOC ---
PULMONARY PROGRESS NOTES Subjective no soa Vitals Vital Signs Date Time Temp Pulse Resp B/P (MAP) Pulse Ox O2 Delivery O2 Flow Rate FiO2 02/24/20 10:43 97.8 84 19 129/58 (81) 94 Nasal Cannula 3.0 97.8 General: Alert, No acute distress Lungs: Other (decrease bs) Cardiovascular: S1, S2 Abdomen: Soft, Other (obese) Extremities: Other (1+edema) Skin: Warm Labs Laboratory Tests Test 02/22/20 22:05 02/22/20 22:21 02/23/20 03:20 02/23/20 06:20 White Blood Count 10.1 x10^3/uL (4.0-11.0) Red Blood Count 4.40 x10^6/uL (3.50-5.40) Hemoglobin 10.2 g/dL (12.0-15.5) Hematocrit 32.4 % (36.0-47.0) Mean Corpuscular Volume 74 fL (79-100) Mean Corpuscular Hemoglobin 23 pg (25-35) Mean Corpuscular Hemoglobin Concent 32 g/dL (31-37) Red Cell Distribution Width 19.7 % (11.5-14.5) Platelet Count 196 x10^3/uL (140-400) Neutrophils (%) (Auto) 83 % (31-73) Lymphocytes (%) (Auto) 7 % (24-48) Monocytes (%) (Auto) 9 % (0-9) Eosinophils (%) (Auto) 1 % (0-3) Basophils (%) (Auto) 0 % (0-3) Neutrophils # (Auto) 8.5 x10^3/uL (1.8-7.7) Lymphocytes # (Auto) 0.7 x10^3/uL (1.0-4.8) Monocytes # (Auto) 0.9 x10^3/uL (0.0-1.1) Eosinophils # (Auto) 0.1 x10^3/uL (0.0-0.7) Basophils # (Auto) 0.0 x10^3/uL (0.0-0.2) Prothrombin Time 13.8 SEC (11.7-14.0) Prothromb Time International Ratio 1.1 (0.8-1.1) Activated Partial Thromboplast Time 31 SEC (24-38) D-Dimer (Elsy) 0.74 ug/mlFEU (0.00-0.50) Sodium Level 136 mmol/L (136-145) Potassium Level 3.8 mmol/L (3.5-5.1) Chloride Level 99 mmol/L (98-107) Carbon Dioxide Level 27 mmol/L (21-32) Anion Gap 10 (6-14) Blood Urea Nitrogen 21 mg/dL (7-20) Creatinine 1.5 mg/dL (0.6-1.0) Estimated GFR (Cockcroft-Gault) 34.2 BUN/Creatinine Ratio 14 (6-20) Glucose Level 249 mg/dL (70-99) Calcium Level 8.4 mg/dL (8.5-10.1) Magnesium Level 1.7 mg/dL (1.8-2.4) Total Bilirubin 0.6 mg/dL (0.2-1.0) Aspartate Amino Transf (AST/SGOT) 25 U/L (15-37) Alanine Aminotransferase (ALT/SGPT) 33 U/L (14-59) Alkaline Phosphatase 66 U/L (46-116) Creatine Kinase 57 U/L (26-192) Creatine Kinase MB (Mass) 0.8 ng/mL (0.0-3.6) Creatine Kinase MB Relative Index % (0-4) Troponin I Quantitative < 0.017 ng/mL (0.000-0.055) < 0.017 ng/mL (0.000-0.055) < 0.017 ng/mL (0.000-0.055) HD-Acb-G-Type Natriuretic Peptide 917 pg/mL (0-124) Total Protein 6.5 g/dL (6.4-8.2) Albumin 2.9 g/dL (3.4-5.0) Albumin/Globulin Ratio 0.8 (1.0-1.7) Lipase 122 U/L (73-393) Influenza Type A Antigen Negative (NEGATIVE) Influenza Type B Antigen Negative (NEGATIVE) Test 02/23/20 08:04 02/23/20 13:55 02/23/20 15:58 02/23/20 20:22 Glucose (Fingerstick) 187 mg/dL (70-99) 265 mg/dL (70-99) 305 mg/dL (70-99) 314 mg/dL (70-99) Test 02/23/20 21:05 02/24/20 04:50 02/24/20 07:08 Heparin Anti-Xa Act, Unfractionated 0.15 IU/mL (0.30-0.70) 0.34 IU/mL (0.30-0.70) Sodium Level 135 mmol/L (136-145) Potassium Level 4.1 mmol/L (3.5-5.1) Chloride Level 98 mmol/L (98-107) Carbon Dioxide Level 26 mmol/L (21-32) Anion Gap 11 (6-14) Blood Urea Nitrogen 21 mg/dL (7-20) Creatinine 1.4 mg/dL (0.6-1.0) Estimated GFR (Cockcroft-Gault) 37.1 Glucose Level 296 mg/dL (70-99) Calcium Level 7.9 mg/dL (8.5-10.1) Triglycerides Level 76 mg/dL (0-150) Cholesterol Level 90 mg/dL (0-200) LDL Cholesterol, Calculated 31 mg/dL (0-100) VLDL Cholesterol, Calculated 15 mg/dL (0-40) Non-HDL Cholesterol Calculated 46 mg/dL (0-129) HDL Cholesterol 44 mg/dL (40-60) Cholesterol/HDL Ratio 2.0 Glucose (Fingerstick) 249 mg/dL (70-99) Laboratory Tests Test 02/23/20 13:55 02/23/20 15:58 02/23/20 20:22 02/23/20 21:05 Glucose (Fingerstick) 265 mg/dL (70-99) 305 mg/dL (70-99) 314 mg/dL (70-99) Heparin Anti-Xa Act, Unfractionated 0.15 IU/mL (0.30-0.70) Test 02/24/20 04:50 02/24/20 07:08 Heparin Anti-Xa Act, Unfractionated 0.34 IU/mL (0.30-0.70) Sodium Level 135 mmol/L (136-145) Potassium Level 4.1 mmol/L (3.5-5.1) Chloride Level 98 mmol/L (98-107) Carbon Dioxide Level 26 mmol/L (21-32) Anion Gap 11 (6-14) Blood Urea Nitrogen 21 mg/dL (7-20) Creatinine 1.4 mg/dL (0.6-1.0) Estimated GFR (Cockcroft-Gault) 37.1 Glucose Level 296 mg/dL (70-99) Calcium Level 7.9 mg/dL (8.5-10.1) Triglycerides Level 76 mg/dL (0-150) Cholesterol Level 90 mg/dL (0-200) LDL Cholesterol, Calculated 31 mg/dL (0-100) VLDL Cholesterol, Calculated 15 mg/dL (0-40) Non-HDL Cholesterol Calculated 46 mg/dL (0-129) HDL Cholesterol 44 mg/dL (40-60) Cholesterol/HDL Ratio 2.0 Glucose (Fingerstick) 249 mg/dL (70-99) Medications Active Scripts Medications Dose Route/Sig Max Daily Dose Days Date Category Entresto 97 mg-103 mg Tablet (Sacubitril/Valsartan) 1 Each Tablet 0.5 Each PO DAILY 02/18/20 Reported Aspirin 81 Mg Tab.chew 81 Mg PO DAILY 02/18/20 Reported Citalopram Hbr (Citalopram Hydrobromide) 20 Mg Tablet 1 Tab PO DAILY08 12/23/19 Reported Hydrocodone-Apap 7.5-325 (Hydrocodone Bit/Acetaminophen) 1 Tab Tablet 1 Tab PO Q4HRS PRN 12/23/19 Reported Furosemide 20 Mg Tablet 20 Mg PO BID 12/23/19 Reported Amiodarone Hcl 200 Mg Tablet 1 Tab PO DAILY 12/23/19 Reported Colace (Docusate Sodium) 100 Mg Capsule 1 Cap PO BID 30 10/14/19 Rx Alprazolam 0.25 Mg Tablet 1 Tab PO BID PRN 10/02/19 Rx Montelukast Sodium Tablet (Montelukast Sodium) 10 Mg Tablet 10 Mg PO HS 11/30/17 Reported Levothyroxine Sodium 100 Mcg Tablet 1 Tab PO DAILY 05/26/16 Reported Proair Hfa Inhaler (Albuterol Sulfate) 8.5 Gm Hfa.aer.ad 2 Puff IH PRN Q4-6HRS 05/20/15 Reported Tylenol (Acetaminophen) 325 Mg Tablet 650 Mg PO 05/14/15 Reported Fenofibrate (Fenofibrate Nanocrystallized) 145 Mg Tablet 1 Tab PO DAILY 05/14/15 Reported Humalog (Insulin Lispro) 100 Unit/1 Ml Vial 35 Unit SQ TID 04/08/14 Reported Lantus Solostar (Insulin Glargine,Hum.rec.anlog) 100 Unit/1 Ml Insuln.pen 35 Unit SQ HS 04/08/14 Reported Pantoprazole Sodium (Pantoprazole Sodium) 40 Mg Tablet.dr 40 Mg PO DAILY 04/08/14 Reported Atorvastatin Calcium 40 Mg Tablet 40 Mg PO HS 04/08/14 Reported Gabapentin (Gabapentin) 100 Mg Capsule 100 Mg PO BID 04/08/14 Reported Impression . 1. Dyspnea with acute hypoxic respiratory failure. Likely secondary to recurrent pulmonary embolism. Her V/Q scan shows a large perfusion defect in the right lower lobe. There is no definite consolidation on the plain chest x-ray. Ventilation scan was not performed. The previous perfusion scan, which was done on 01/27/2020 had no significant perfusion defects. She has now IVC filter removal and has become symptomatic since the filter has been removed. 2. No significant tobacco history. 3. Cardiomyopathy with an ejection fraction of 20%-25% with possible mild congestive heart failure. She has severe global hypokinesis. She is status post stents. 4. 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 5. History of breast cancer with prior left mastectomy. 6. Abnormal CXR with possible faint mild interstitial infiltrates. The patient is on amiodarone. We will also assess for any amiodarone-induced interstitial infiltrates or interstitial lung disease. ct chest once ruled out for COVID-19 Plan . 1. full-dose anticoagulation with heparin/ start eliquis 2. Continue Lasix. 3. Once creatinine improves, then we will consider CT angiogram. 4. We will also obtain venous Dopplers of lower extremities. 5. The patient is on amiodarone. We will also assess for any amiodarone-induced interstitial infiltrates or interstitial lung disease. 6. Continue oxygen to keep saturation 92 and above. 7. Discussed with WONG ZHANG MD Feb 24, 2020 11:20
[2020-02-24] MEDS: ANTI-COAG MONITOR BY PHARMACY. MC PRN (12:13)
--- NOTE | 2020-02-24 12:22 | PDOC ---
PROGRESS NOTES Chief Complaint Chief Complaint ASSESSMENT Acute Hypoxic Resp Failure secondary to recurrent PE Chest pain; atypical. AMI ruled out. Acute respiratory failure with possible PE. Severe ICM/NICM: H/o VT with ICD discharge. DM2 HLD CADs/p PCI/LAD PAD: s/p percutaneous revascularization. CKD HTN H/o PE s/p IVC filter. Hypomagnesemia History of breast cancer with prior left mastectomy. Abnormal CXR with possible faint mild interstitial infiltrates rule out covid 19 PLAN full dose AC for now VQ with intermediated probability for PE Cardiac catheterization 10/2018 showed patent LAD stent and 80% stenosis in small-caliber diagonal branch, which was noted in prior cardiac catheterization and is being medically managed. EF at 20-25%. s/p AICD ([facility] A). Device check. On Entresto On Amiodarone for rhythm maintenance IVF filter removed 02/18/20. Has been off OAC Replace Mg Add imdur per cards continue lasix continue 02 apprec pulm and cards input dvt ppx: full dose ac Vitals Vitals Vital Signs Date Time Temp Pulse Resp B/P (MAP) Pulse Ox O2 Delivery O2 Flow Rate FiO2 02/24/20 10:43 97.8 84 19 129/58 (81) 94 Nasal Cannula 3.0 97.8 Physical Exam General: Alert, Oriented X3, Cooperative, No acute distress Heart: Regular rate, Normal S1, Normal S2 Lungs: Other (decrease bs) Abdomen: Soft, No tenderness Extremities: No edema, Normal pulses Skin: No significant lesion Labs LABS Laboratory Tests Test 02/23/20 13:55 02/23/20 15:58 02/23/20 20:22 02/23/20 21:05 Glucose (Fingerstick) 265 mg/dL (70-99) 305 mg/dL (70-99) 314 mg/dL (70-99) Heparin Anti-Xa Act, Unfractionated 0.15 IU/mL (0.30-0.70) Test 02/24/20 04:50 02/24/20 07:08 02/24/20 11:27 Heparin Anti-Xa Act, Unfractionated 0.34 IU/mL (0.30-0.70) Sodium Level 135 mmol/L (136-145) Potassium Level 4.1 mmol/L (3.5-5.1) Chloride Level 98 mmol/L (98-107) Carbon Dioxide Level 26 mmol/L (21-32) Anion Gap 11 (6-14) Blood Urea Nitrogen 21 mg/dL (7-20) Creatinine 1.4 mg/dL (0.6-1.0) Estimated GFR (Cockcroft-Gault) 37.1 Glucose Level 296 mg/dL (70-99) Calcium Level 7.9 mg/dL (8.5-10.1) Triglycerides Level 76 mg/dL (0-150) Cholesterol Level 90 mg/dL (0-200) LDL Cholesterol, Calculated 31 mg/dL (0-100) VLDL Cholesterol, Calculated 15 mg/dL (0-40) Non-HDL Cholesterol Calculated 46 mg/dL (0-129) HDL Cholesterol 44 mg/dL (40-60) Cholesterol/HDL Ratio 2.0 Glucose (Fingerstick) 249 mg/dL (70-99) 297 mg/dL (70-99) Assessment and Plan Assessmemt and Plan Problems Medical Problems: (1) Chest pain Status: Acute (2) Elevated d-dimer Status: Acute (3) Suspected 2019 novel coronavirus infection Status: Acute Comment Review of Relevant I have reviewed the following items juliette (where applicable) has been applied. Labs Laboratory Tests Test 02/22/20 22:05 02/22/20 22:21 02/23/20 03:20 02/23/20 06:20 White Blood Count 10.1 x10^3/uL (4.0-11.0) Red Blood Count 4.40 x10^6/uL (3.50-5.40) Hemoglobin 10.2 g/dL (12.0-15.5) Hematocrit 32.4 % (36.0-47.0) Mean Corpuscular Volume 74 fL (79-100) Mean Corpuscular Hemoglobin 23 pg (25-35) Mean Corpuscular Hemoglobin Concent 32 g/dL (31-37) Red Cell Distribution Width 19.7 % (11.5-14.5) Platelet Count 196 x10^3/uL (140-400) Neutrophils (%) (Auto) 83 % (31-73) Lymphocytes (%) (Auto) 7 % (24-48) Monocytes (%) (Auto) 9 % (0-9) Eosinophils (%) (Auto) 1 % (0-3) Basophils (%) (Auto) 0 % (0-3) Neutrophils # (Auto) 8.5 x10^3/uL (1.8-7.7) Lymphocytes # (Auto) 0.7 x10^3/uL (1.0-4.8) Monocytes # (Auto) 0.9 x10^3/uL (0.0-1.1) Eosinophils # (Auto) 0.1 x10^3/uL (0.0-0.7) Basophils # (Auto) 0.0 x10^3/uL (0.0-0.2) Prothrombin Time 13.8 SEC (11.7-14.0) Prothromb Time International Ratio 1.1 (0.8-1.1) Activated Partial Thromboplast Time 31 SEC (24-38) D-Dimer (Elsy) 0.74 ug/mlFEU (0.00-0.50) Sodium Level 136 mmol/L (136-145) Potassium Level 3.8 mmol/L (3.5-5.1) Chloride Level 99 mmol/L (98-107) Carbon Dioxide Level 27 mmol/L (21-32) Anion Gap 10 (6-14) Blood Urea Nitrogen 21 mg/dL (7-20) Creatinine 1.5 mg/dL (0.6-1.0) Estimated GFR (Cockcroft-Gault) 34.2 BUN/Creatinine Ratio 14 (6-20) Glucose Level 249 mg/dL (70-99) Calcium Level 8.4 mg/dL (8.5-10.1) Magnesium Level 1.7 mg/dL (1.8-2.4) Total Bilirubin 0.6 mg/dL (0.2-1.0) Aspartate Amino Transf (AST/SGOT) 25 U/L (15-37) Alanine Aminotransferase (ALT/SGPT) 33 U/L (14-59) Alkaline Phosphatase 66 U/L (46-116) Creatine Kinase 57 U/L (26-192) Creatine Kinase MB (Mass) 0.8 ng/mL (0.0-3.6) Creatine Kinase MB Relative Index % (0-4) Troponin I Quantitative < 0.017 ng/mL (0.000-0.055) < 0.017 ng/mL (0.000-0.055) < 0.017 ng/mL (0.000-0.055) XF-Ygg-N-Type Natriuretic Peptide 917 pg/mL (0-124) Total Protein 6.5 g/dL (6.4-8.2) Albumin 2.9 g/dL (3.4-5.0) Albumin/Globulin Ratio 0.8 (1.0-1.7) Lipase 122 U/L (73-393) Coronavirus (COVID-19)(PCR) Not detected (NOT DETECT.) Influenza Type A Antigen Negative (NEGATIVE) Influenza Type B Antigen Negative (NEGATIVE) Test 02/23/20 08:04 02/23/20 13:55 02/23/20 15:58 02/23/20 20:22 Glucose (Fingerstick) 187 mg/dL (70-99) 265 mg/dL (70-99) 305 mg/dL (70-99) 314 mg/dL (70-99) Test 02/23/20 21:05 02/24/20 04:50 02/24/20 07:08 02/24/20 11:27 Heparin Anti-Xa Act, Unfractionated 0.15 IU/mL (0.30-0.70) 0.34 IU/mL (0.30-0.70) Sodium Level 135 mmol/L (136-145) Potassium Level 4.1 mmol/L (3.5-5.1) Chloride Level 98 mmol/L (98-107) Carbon Dioxide Level 26 mmol/L (21-32) Anion Gap 11 (6-14) Blood Urea Nitrogen 21 mg/dL (7-20) Creatinine 1.4 mg/dL (0.6-1.0) Estimated GFR (Cockcroft-Gault) 37.1 Glucose Level 296 mg/dL (70-99) Calcium Level 7.9 mg/dL (8.5-10.1) Triglycerides Level 76 mg/dL (0-150) Cholesterol Level 90 mg/dL (0-200) LDL Cholesterol, Calculated 31 mg/dL (0-100) VLDL Cholesterol, Calculated 15 mg/dL (0-40) Non-HDL Cholesterol Calculated 46 mg/dL (0-129) HDL Cholesterol 44 mg/dL (40-60) Cholesterol/HDL Ratio 2.0 Glucose (Fingerstick) 249 mg/dL (70-99) 297 mg/dL (70-99) Laboratory Tests Test 02/23/20 13:55 02/23/20 15:58 02/23/20 20:22 02/23/20 21:05 Glucose (Fingerstick) 265 mg/dL (70-99) 305 mg/dL (70-99) 314 mg/dL (70-99) Heparin Anti-Xa Act, Unfractionated 0.15 IU/mL (0.30-0.70) Test 02/24/20 04:50 02/24/20 07:08 02/24/20 11:27 Heparin Anti-Xa Act, Unfractionated 0.34 IU/mL (0.30-0.70) Sodium Level 135 mmol/L (136-145) Potassium Level 4.1 mmol/L (3.5-5.1) Chloride Level 98 mmol/L (98-107) Carbon Dioxide Level 26 mmol/L (21-32) Anion Gap 11 (6-14) Blood Urea Nitrogen 21 mg/dL (7-20) Creatinine 1.4 mg/dL (0.6-1.0) Estimated GFR (Cockcroft-Gault) 37.1 Glucose Level 296 mg/dL (70-99) Calcium Level 7.9 mg/dL (8.5-10.1) Triglycerides Level 76 mg/dL (0-150) Cholesterol Level 90 mg/dL (0-200) LDL Cholesterol, Calculated 31 mg/dL (0-100) VLDL Cholesterol, Calculated 15 mg/dL (0-40) Non-HDL Cholesterol Calculated 46 mg/dL (0-129) HDL Cholesterol 44 mg/dL (40-60) Cholesterol/HDL Ratio 2.0 Glucose (Fingerstick) 249 mg/dL (70-99) 297 mg/dL (70-99) Medications Current Medications Aspirin (Brandee Aspirin) 325 mg 1X ONCE PO ; Start 02/22/20 at 22:30; Stop 02/22/20 at 22:26; Status DC Acetaminophen (Tylenol) 500 mg 1X ONCE PO Last administered on 02/22/20at 22:34; Start 02/22/20 at 23:00; Stop 02/22/20 at 23:01; Status DC Ondansetron HCl (Zofran) 4 mg PRN Q8HRS PRN IV NAUSEA/VOMITING 1ST CHOICE; Start 02/23/20 at 00:45; Stop 02/24/20 at 00:44; Status DC Insulin Human Lispro (HumaLOG) 0-5 UNITS TIDWMEALS SQ Last administered on 02/24/20 08:50; Start 02/23/20 at 08:00 Dextrose (Dextrose 50%-Water Syringe) 12.5 gm PRN Q15MIN PRN IV SEE COMMENTS; Start 02/23/20 at 00:45 Magnesium Sulfate 50 ml @ 25 mls/hr 1X ONCE IV Last administered on 02/23/20at 09:38; Start 02/23/20 at 09:15; Stop 02/23/20 at 11:14; Status DC Acetaminophen (Tylenol) 650 mg PRN Q6HRS PRN PO MILD PAIN / TEMP > 100.3'F Last administered on 02/23/20at 21:41; Start 02/23/20 at 12:45 Alprazolam (Xanax) 0.25 mg PRN BID PRN PO ANXIETY / AGITATION; Start 02/23/20 at 12:45 Amiodarone HCl (Cordarone) 200 mg DAILY PO Last administered on 02/24/20 08:48; Start 02/23/20 at 14:00 Aspirin (Aspirin Chewable) 81 mg DAILY PO Last administered on 02/24/20 08:49; Start 02/23/20 at 14:00 Atorvastatin Calcium (Lipitor) 40 mg HS PO Last administered on 02/23/20at 21:32; Start 02/23/20 at 21:00 Citalopram Hydrobromide (CeleXA) 20 mg DAILY08 PO Last administered on 02/24/20 08:48; Start 02/23/20 at 14:00 Docusate Sodium (Colace) 100 mg BID PO Last administered on 02/24/20 08:48; Start 02/23/20 at 14:00 Furosemide (Lasix) 20 mg BID92 PO Last administered on 02/24/20 08:48; Start 02/23/20 at 14:00 Gabapentin (Neurontin) 100 mg BID PO Last administered on 02/24/20 08:48; Start 02/23/20 at 14:00 Acetaminophen/ Hydrocodone Bitart (Lortab 7.5/325) 1 tab PRN Q4HRS PRN PO MODERATE PAIN; Start 02/23/20 at 12:45 Levothyroxine Sodium (Synthroid) 100 mcg DAILY06 PO Last administered on 02/24/20 06:10; Start 02/23/20 at 14:00 Montelukast Sodium (Singulair) 10 mg HS PO Last administered on 02/23/20at 21:33; Start 02/23/20 at 21:00 Pantoprazole Sodium (Protonix) 40 mg DAILYAC PO Last administered on 02/24/20 08:48; Start 02/23/20 at 16:30 Fenofibrate (Lofibra) 134 mg DAILY PO Last administered on 02/24/20 08:48; Start 02/23/20 at 14:00 Insulin Glargine (Lantus Syringe) 35 unit QHS SQ Last administered on 02/23/20at 21:34; Start 02/23/20 at 21:00 Sacubitril/ Valsartan (Entresto 49 Mg-51 Mg) 1 tab DAILY PO Last administered on 02/24/20 08:48; Start 02/23/20 at 14:00 Heparin Sodium (Porcine) (Heparin Sodium) 4,000 unit 1X ONCE IV Last administered on 02/23/20at 15:05; Start 02/23/20 at 14:30; Stop 02/23/20 at 14:31; Status DC Heparin Sodium/ Dextrose 250 ml @ 0 mls/hr CONT PRN IV PER PROTOCOL Last administered on 02/24/20at 04:34; Start 02/23/20 at 14:30 Heparin Sodium (Porcine) (Heparin Sodium) 2,750 unit PRN Q6HRS PRN IV FOR UFH LEVEL LESS THAN 0.2 Last administered on 02/23/20at 22:28; Start 02/23/20 at 14:30 Heparin Sodium (Porcine) (Heparin Sodium) 1,350 unit PRN Q6HRS PRN IV FOR UFH LEVEL 0.2 - 0.29; Start 02/23/20 at 14:30 Insulin Human Lispro (HumaLOG) 10 units 1X ONCE SQ Last administered on 02/23/20at 16:46; Start 02/23/20 at 16:45; Stop 02/23/20 at 16:46; Status DC Isosorbide Mononitrate (Imdur) 30 mg DAILY PO Last administered on 6/23/20at 08:49; Start 02/24/20 at 09:00 Info (Anti-Coagulation Monitoring By Pharmacy) 1 each PRN DAILY PRN MC SEE COMMENTS; Start 02/24/20 at 12:15 Active Scripts Active Colace (Docusate Sodium) 100 Mg Capsule 1 Cap PO BID 30 Days Alprazolam 0.25 Mg Tablet 1 Tab PO BID PRN Reported Entresto 97 mg-103 mg Tablet (Sacubitril/Valsartan) 1 Each Tablet 0.5 Each PO DAILY Aspirin 81 Mg Tab.chew 81 Mg PO DAILY Citalopram Hbr (Citalopram Hydrobromide) 20 Mg Tablet 1 Tab PO DAILY08 Hydrocodone-Apap 7.5-325 (Hydrocodone Bit/Acetaminophen) 1 Tab Tablet 1 Tab PO Q4HRS PRN Furosemide 20 Mg Tablet 20 Mg PO BID Amiodarone Hcl 200 Mg Tablet 1 Tab PO DAILY Montelukast Sodium Tablet (Montelukast Sodium) 10 Mg Tablet 10 Mg PO HS Levothyroxine Sodium 100 Mcg Tablet 1 Tab PO DAILY Proair Hfa Inhaler (Albuterol Sulfate) 8.5 Gm Hfa.aer.ad 2 Puff IH PRN Q4-6HRS Tylenol (Acetaminophen) 325 Mg Tablet 650 Mg PO Fenofibrate (Fenofibrate Nanocrystallized) 145 Mg Tablet 1 Tab PO DAILY Humalog (Insulin Lispro) 100 Unit/1 Ml Vial 35 Unit SQ TID Lantus Solostar (Insulin Glargine,Hum.rec.anlog) 100 Unit/1 Ml Insuln.pen 35 Unit SQ HS Pantoprazole Sodium (Pantoprazole Sodium) 40 Mg Tablet.dr 40 Mg PO DAILY Atorvastatin Calcium 40 Mg Tablet 40 Mg PO HS Gabapentin (Gabapentin) 100 Mg Capsule 100 Mg PO BID Vitals/I & O Vital Sign - Last 24 Hours 02/23/20 02/23/20 02/23/20 02/23/20 14:29 14:29 15:00 15:25 Temp 98.3 98.3 Pulse 96 96 96 Resp 19 B/P (MAP) 163/72 163/72 143/58 (86) Pulse Ox 100 O2 Delivery Nasal Cannula Nasal Cannula O2 Flow Rate 3.0 3.0 02/23/20 02/23/20 02/23/20 02/24/20 19:00 20:00 23:00 03:00 Temp 97.0 98.9 97.6 97.0 98.9 97.6 Pulse 98 95 86 Resp 18 18 18 B/P (MAP) 134/62 (86) 114/61 (78) 124/62 (82) Pulse Ox 95 96 96 O2 Delivery Nasal Cannula O2 Flow Rate 3.0 02/24/20 02/24/20 02/24/20 02/24/20 07:00 08:48 08:48 08:49 Temp 98.7 98.7 Pulse 90 90 90 90 Resp 19 B/P (MAP) 125/55 (78) 125/55 125/55 125/55 Pulse Ox 94 O2 Delivery Nasal Cannula O2 Flow Rate 3.0 02/24/20 10:43 Temp 97.8 97.8 Pulse 84 Resp 19 B/P (MAP) 129/58 (81) Pulse Ox 94 O2 Delivery Nasal Cannula O2 Flow Rate 3.0 Intake and Output 02/23/20 02/23/20 02/24/20 15:00 23:00 07:00 Intake Total 300 ml Output Total 475 ml Balance 300 ml -475 ml CARLINE CHAIREZ MD Feb 24, 2020 12:22
--- NOTE | 2020-02-24 12:25 | PDOC2 ---
CONSULT Date of Consult Date of Consult DATE: 02/24/20 TIME: 12:17 Reason for Consult Reason for Consult: RENAL FAILURE Referring Physician Referring Physician: KRISTEN Identification/Chief Complaint Chief Complaint SOB Source Source: Chart review, Patient History of Present Illness Reason for Visit: THIS IS A 69 YR OLD PT WITH SOB. HX NOTABLE FOR REMOVAL OF IVC FILTER A WEEK AGO. V/Q PERFUSION SCAN CONCERNING FOR PE. CURRENTLY UNDERGOING EVALUATION BY PULM AND ANTICOAGULATION HAS BEEN STARTED. OTHER PERTINENT HX NOTABLE FOR CM WITH EF OF 20-25%, DM II AND HTN. SHE ALSO C/O FEELING DIZZY, HEMODYNAMICALLY STABLE. CR OF 1.8-1.9 AND SHE HAS CKD STAGE 3. HAS NOT SEEN NEPHROLOGY OP. HAS BEEN SCHEDULED TO SEE MY PARTNER DR MARI IN THE OFFICE THIS WEEK FOR INITIAL EVALUATION. HAS SOME NOCTURIA AND STRESS INCONTINENCE BUT NO OTHER HX Past Medical History Cardiovascular: CAD, CHF, HTN, Hyperlipidemia Pulmonary: Pneumonia CENTRAL NERVOUS SYSTEM: Carpal Tunnel Syndrome, Periperal neuropathy GI: GERD Heme/Onc: Cancer Psych: Anxiety Musculoskeletal: Osteoarthritis Infectious disease: No pertinent hx Renal/: No pertinent hx Endocrine: Diabetes, Hypothyroidism Past Surgical History Past Surgical History: Cholecystectomy, Mastectomy, Tubal Ligation, Tonsillectomy, Hysterectomy, Other Family History Family History: Heart Disease Social History ALCOHOL: none Drugs: None Lives: Alone Domestic Violence: Neg Current Problem List Problem List Problems Medical Problems: (1) Chest pain Status: Acute (2) Elevated d-dimer Status: Acute (3) Suspected 2019 novel coronavirus infection Status: Acute Current Medications Current Medications Current Medications Aspirin (Brandee Aspirin) 325 mg 1X ONCE PO ; Start 02/22/20 at 22:30; Stop 02/22/20 at 22:26; Status DC Acetaminophen (Tylenol) 500 mg 1X ONCE PO Last administered on 02/22/20at 22:34; Start 02/22/20 at 23:00; Stop 02/22/20 at 23:01; Status DC Ondansetron HCl (Zofran) 4 mg PRN Q8HRS PRN IV NAUSEA/VOMITING 1ST CHOICE; Start 02/23/20 at 00:45; Stop 02/24/20 at 00:44; Status DC Insulin Human Lispro (HumaLOG) 0-5 UNITS TIDWMEALS SQ Last administered on 02/24/20at 08:50; Start 02/23/20 at 08:00 Dextrose (Dextrose 50%-Water Syringe) 12.5 gm PRN Q15MIN PRN IV SEE COMMENTS; Start 02/23/20 at 00:45 Magnesium Sulfate 50 ml @ 25 mls/hr 1X ONCE IV Last administered on 02/23/20at 09:38; Start 02/23/20 at 09:15; Stop 02/23/20 at 11:14; Status DC Acetaminophen (Tylenol) 650 mg PRN Q6HRS PRN PO MILD PAIN / TEMP > 100.3'F Last administered on 02/23/20at 21:41; Start 02/23/20 at 12:45 Alprazolam (Xanax) 0.25 mg PRN BID PRN PO ANXIETY / AGITATION; Start 02/23/20 at 12:45 Amiodarone HCl (Cordarone) 200 mg DAILY PO Last administered on 02/24/20at 08:48; Start 02/23/20 at 14:00 Aspirin (Aspirin Chewable) 81 mg DAILY PO Last administered on 02/24/20at 08:49; Start 02/23/20 at 14:00 Atorvastatin Calcium (Lipitor) 40 mg HS PO Last administered on 02/23/20at 21:32; Start 02/23/20 at 21:00 Citalopram Hydrobromide (CeleXA) 20 mg DAILY08 PO Last administered on 02/24/20 08:48; Start 02/23/20 at 14:00 Docusate Sodium (Colace) 100 mg BID PO Last administered on 02/24/20at 08:48; Start 02/23/20 at 14:00 Furosemide (Lasix) 20 mg BID92 PO Last administered on 02/24/20at 08:48; Start 02/23/20 at 14:00 Gabapentin (Neurontin) 100 mg BID PO Last administered on 02/24/20 08:48; Start 02/23/20 at 14:00 Acetaminophen/ Hydrocodone Bitart (Lortab 7.5/325) 1 tab PRN Q4HRS PRN PO MODERATE PAIN; Start 02/23/20 at 12:45 Levothyroxine Sodium (Synthroid) 100 mcg DAILY06 PO Last administered on 02/24/20at 06:10; Start 02/23/20 at 14:00 Montelukast Sodium (Singulair) 10 mg HS PO Last administered on 02/23/20at 21:33; Start 02/23/20 at 21:00 Pantoprazole Sodium (Protonix) 40 mg DAILYAC PO Last administered on 02/24/20at 08:48; Start 02/23/20 at 16:30 Fenofibrate (Lofibra) 134 mg DAILY PO Last administered on 02/24/20at 08:48; Start 02/23/20 at 14:00 Insulin Glargine (Lantus Syringe) 35 unit QHS SQ Last administered on 02/23/20at 21:34; Start 02/23/20 at 21:00 Sacubitril/ Valsartan (Entresto 49 Mg-51 Mg) 1 tab DAILY PO Last administered on 02/24/20at 08:48; Start 02/23/20 at 14:00 Heparin Sodium (Porcine) (Heparin Sodium) 4,000 unit 1X ONCE IV Last administered on 02/23/20at 15:05; Start 02/23/20 at 14:30; Stop 02/23/20 at 14:31; Status DC Heparin Sodium/ Dextrose 250 ml @ 0 mls/hr CONT PRN IV PER PROTOCOL Last administered on 02/24/20at 04:34; Start 02/23/20 at 14:30 Heparin Sodium (Porcine) (Heparin Sodium) 2,750 unit PRN Q6HRS PRN IV FOR UFH LEVEL LESS THAN 0.2 Last administered on 02/23/20at 22:28; Start 02/23/20 at 14:30 Heparin Sodium (Porcine) (Heparin Sodium) 1,350 unit PRN Q6HRS PRN IV FOR UFH LEVEL 0.2 - 0.29; Start 02/23/20 at 14:30 Insulin Human Lispro (HumaLOG) 10 units 1X ONCE SQ Last administered on 02/23/20at 16:46; Start 02/23/20 at 16:45; Stop 02/23/20 at 16:46; Status DC Isosorbide Mononitrate (Imdur) 30 mg DAILY PO Last administered on 02/24/20at 08:49; Start 02/24/20 at 09:00 Info (Anti-Coagulation Monitoring By Pharmacy) 1 each PRN DAILY PRN MC SEE COMMENTS; Start 02/24/20 at 12:15 Active Scripts Active Colace (Docusate Sodium) 100 Mg Capsule 1 Cap PO BID 30 Days Alprazolam 0.25 Mg Tablet 1 Tab PO BID PRN Reported Entresto 97 mg-103 mg Tablet (Sacubitril/Valsartan) 1 Each Tablet 0.5 Each PO DAILY Aspirin 81 Mg Tab.chew 81 Mg PO DAILY Citalopram Hbr (Citalopram Hydrobromide) 20 Mg Tablet 1 Tab PO DAILY08 Hydrocodone-Apap 7.5-325 (Hydrocodone Bit/Acetaminophen) 1 Tab Tablet 1 Tab PO Q4HRS PRN Furosemide 20 Mg Tablet 20 Mg PO BID Amiodarone Hcl 200 Mg Tablet 1 Tab PO DAILY Montelukast Sodium Tablet (Montelukast Sodium) 10 Mg Tablet 10 Mg PO HS Levothyroxine Sodium 100 Mcg Tablet 1 Tab PO DAILY Proair Hfa Inhaler (Albuterol Sulfate) 8.5 Gm Hfa.aer.ad 2 Puff IH PRN Q4-6HRS Tylenol (Acetaminophen) 325 Mg Tablet 650 Mg PO Fenofibrate (Fenofibrate Nanocrystallized) 145 Mg Tablet 1 Tab PO DAILY Humalog (Insulin Lispro) 100 Unit/1 Ml Vial 35 Unit SQ TID Lantus Solostar (Insulin Glargine,Hum.rec.anlog) 100 Unit/1 Ml Insuln.pen 35 Unit SQ HS Pantoprazole Sodium (Pantoprazole Sodium) 40 Mg Tablet.dr 40 Mg PO DAILY Atorvastatin Calcium 40 Mg Tablet 40 Mg PO HS Gabapentin (Gabapentin) 100 Mg Capsule 100 Mg PO BID Allergies Allergies: Coded Allergies: insulin glargine (Verified Allergy, Severe, "swelling", [facility]) allergy is [facility] ONLY, takes LANTUS [place] ROS General: YES: Fatigue, Appetite PSYCHOLOGICAL ROS: YES: Anxiety, Depression HEENT: YES: [place] ALLERGY AND IMMUNOLOGY: YES: Seasonal Allergies Respiratory: YES: Cough, Shortness of breath Gastrointestinal: Yes Constipation Genitourinary: YES Other (NOCTURIA) Musculoskeletal: Yes Muscular Weakness Neurological: Yes Dizziness, Yes Weakness Skin: Yes Dry Skin Physical Exam General: Alert, Oriented X3, Cooperative, No acute distress HEENT: Atraumatic, EOMI, Mucous membr. moist/pink Lungs: Clear to auscultation Heart: Regular rate Abdomen: Normal bowel sounds, Soft, No tenderness Extremities: No cyanosis Skin: No breakdown Neuro: Normal speech, Sensation intact Psych/Mental Status: Mental status NL, Mood NL MUSCULOSKELETAL: No joint tenderness, No deformity Vitals VITALS Vital Signs Date Time Temp Pulse Resp B/P (MAP) Pulse Ox O2 Delivery O2 Flow Rate FiO2 02/24/20 10:43 97.8 84 19 129/58 (81) 94 Nasal Cannula 3.0 97.8 Labs Labs Laboratory Tests Test 02/22/20 22:05 02/22/20 22:21 02/23/20 03:20 02/23/20 06:20 White Blood Count 10.1 x10^3/uL (4.0-11.0) Red Blood Count 4.40 x10^6/uL (3.50-5.40) Hemoglobin 10.2 g/dL (12.0-15.5) Hematocrit 32.4 % (36.0-47.0) Mean Corpuscular Volume 74 fL (79-100) Mean Corpuscular Hemoglobin 23 pg (25-35) Mean Corpuscular Hemoglobin Concent 32 g/dL (31-37) Red Cell Distribution Width 19.7 % (11.5-14.5) Platelet Count 196 x10^3/uL (140-400) Neutrophils (%) (Auto) 83 % (31-73) Lymphocytes (%) (Auto) 7 % (24-48) Monocytes (%) (Auto) 9 % (0-9) Eosinophils (%) (Auto) 1 % (0-3) Basophils (%) (Auto) 0 % (0-3) Neutrophils # (Auto) 8.5 x10^3/uL (1.8-7.7) Lymphocytes # (Auto) 0.7 x10^3/uL (1.0-4.8) Monocytes # (Auto) 0.9 x10^3/uL (0.0-1.1) Eosinophils # (Auto) 0.1 x10^3/uL (0.0-0.7) Basophils # (Auto) 0.0 x10^3/uL (0.0-0.2) Prothrombin Time 13.8 SEC (11.7-14.0) Prothromb Time International Ratio 1.1 (0.8-1.1) Activated Partial Thromboplast Time 31 SEC (24-38) D-Dimer (Elsy) 0.74 ug/mlFEU (0.00-0.50) Sodium Level 136 mmol/L (136-145) Potassium Level 3.8 mmol/L (3.5-5.1) Chloride Level 99 mmol/L (98-107) Carbon Dioxide Level 27 mmol/L (21-32) Anion Gap 10 (6-14) Blood Urea Nitrogen 21 mg/dL (7-20) Creatinine 1.5 mg/dL (0.6-1.0) Estimated GFR (Cockcroft-Gault) 34.2 BUN/Creatinine Ratio 14 (6-20) Glucose Level 249 mg/dL (70-99) Calcium Level 8.4 mg/dL (8.5-10.1) Magnesium Level 1.7 mg/dL (1.8-2.4) Total Bilirubin 0.6 mg/dL (0.2-1.0) Aspartate Amino Transf (AST/SGOT) 25 U/L (15-37) Alanine Aminotransferase (ALT/SGPT) 33 U/L (14-59) Alkaline Phosphatase 66 U/L (46-116) Creatine Kinase 57 U/L (26-192) Creatine Kinase MB (Mass) 0.8 ng/mL (0.0-3.6) Creatine Kinase MB Relative Index % (0-4) Troponin I Quantitative < 0.017 ng/mL (0.000-0.055) < 0.017 ng/mL (0.000-0.055) < 0.017 ng/mL (0.000-0.055) QG-Aki-I-Type Natriuretic Peptide 917 pg/mL (0-124) Total Protein 6.5 g/dL (6.4-8.2) Albumin 2.9 g/dL (3.4-5.0) Albumin/Globulin Ratio 0.8 (1.0-1.7) Lipase 122 U/L (73-393) Coronavirus (COVID-19)(PCR) Not detected (NOT DETECT.) Influenza Type A Antigen Negative (NEGATIVE) Influenza Type B Antigen Negative (NEGATIVE) Test 02/23/20 08:04 02/23/20 13:55 02/23/20 15:58 02/23/20 20:22 Glucose (Fingerstick) 187 mg/dL (70-99) 265 mg/dL (70-99) 305 mg/dL (70-99) 314 mg/dL (70-99) Test 02/23/20 21:05 02/24/20 04:50 02/24/20 07:08 02/24/20 11:27 Heparin Anti-Xa Act, Unfractionated 0.15 IU/mL (0.30-0.70) 0.34 IU/mL (0.30-0.70) Sodium Level 135 mmol/L (136-145) Potassium Level 4.1 mmol/L (3.5-5.1) Chloride Level 98 mmol/L (98-107) Carbon Dioxide Level 26 mmol/L (21-32) Anion Gap 11 (6-14) Blood Urea Nitrogen 21 mg/dL (7-20) Creatinine 1.4 mg/dL (0.6-1.0) Estimated GFR (Cockcroft-Gault) 37.1 Glucose Level 296 mg/dL (70-99) Calcium Level 7.9 mg/dL (8.5-10.1) Triglycerides Level 76 mg/dL (0-150) Cholesterol Level 90 mg/dL (0-200) LDL Cholesterol, Calculated 31 mg/dL (0-100) VLDL Cholesterol, Calculated 15 mg/dL (0-40) Non-HDL Cholesterol Calculated 46 mg/dL (0-129) HDL Cholesterol 44 mg/dL (40-60) Cholesterol/HDL Ratio 2.0 Glucose (Fingerstick) 249 mg/dL (70-99) 297 mg/dL (70-99) Laboratory Tests Test 02/23/20 13:55 02/23/20 15:58 02/23/20 20:22 02/23/20 21:05 Glucose (Fingerstick) 265 mg/dL (70-99) 305 mg/dL (70-99) 314 mg/dL (70-99) Heparin Anti-Xa Act, Unfractionated 0.15 IU/mL (0.30-0.70) Test 02/24/20 04:50 02/24/20 07:08 02/24/20 11:27 Heparin Anti-Xa Act, Unfractionated 0.34 IU/mL (0.30-0.70) Sodium Level 135 mmol/L (136-145) Potassium Level 4.1 mmol/L (3.5-5.1) Chloride Level 98 mmol/L (98-107) Carbon Dioxide Level 26 mmol/L (21-32) Anion Gap 11 (6-14) Blood Urea Nitrogen 21 mg/dL (7-20) Creatinine 1.4 mg/dL (0.6-1.0) Estimated GFR (Cockcroft-Gault) 37.1 Glucose Level 296 mg/dL (70-99) Calcium Level 7.9 mg/dL (8.5-10.1) Triglycerides Level 76 mg/dL (0-150) Cholesterol Level 90 mg/dL (0-200) LDL Cholesterol, Calculated 31 mg/dL (0-100) VLDL Cholesterol, Calculated 15 mg/dL (0-40) Non-HDL Cholesterol Calculated 46 mg/dL (0-129) HDL Cholesterol 44 mg/dL (40-60) Cholesterol/HDL Ratio 2.0 Glucose (Fingerstick) 249 mg/dL (70-99) 297 mg/dL (70-99) Images Images EXAM: CHEST 1 VIEW History: Chest pain COMPARISON: 01/27/2020 TECHNIQUE: Single portable radiograph of the chest FINDINGS: Mild cardiomegaly unchanged. Mild diffuse prominent appearing bilateral interstitial lung markings likely mild congestive changes. Right-sided Port-A-Cath with AICD again identified. IMPRESSION: Mild bibasilar congestive changes or interstitial infiltrates.. Electronically signed by: Leo Poe MD (02/22/2020 11:31 PM) [id number] Assessment/Plan Assessment/Plan IMP CKD STAGE 3-CR AT BASELINE OF 1.8-2.0 HX OF HTN HX OF DM II DYSPNEA-ACUTE HYPOXIC RESP FAILURE RECURRENT PULMONARY EMBOLI CM WITH EF OF 20-25% CAD WITH HX OF STENTS PLAN HER RENAL FXN IS STABLE CONT ANTICOAGULATION MAXIMIZE TX FOR CM AFTER LOAD REDUCTION WITH ENTRESTO AND LASIX WILL FOLLOW COMPA GALLAGHER MD Feb 24, 2020 12:25
[2020-02-24] MEDS ORDERED: APIXABAN 5 MG TABLET. PO SCH (13:00)
[2020-02-24] MEDS ORDERED: HEPARIN for IV BOLUS 10,000 UNIT/10 ML VIAL. IV PRN ×2 (13:45)
[2020-02-24] MEDS ORDERED: INSULIN REGULAR 100 UNIT/ML 3ML VIAL. SQ SCH (14:00)
[2020-02-24] MEDS: ACETAMINOPHEN 325 MG TABLET. PO PRN ×2 (15:03→21:02)
--- NOTE | 2020-02-24 15:14 | PDOC ---
CARDIO Progress Notes Date and Time Date of Service 02/24/20 Time of Evaluation 1140 Subjective Subjective: No Chest Pain, No shortness of breath, No Palpitations, No Dizziness, Other (feeling better today.) Vitals Vitals Vital Signs Date Time Temp Pulse Resp B/P (MAP) Pulse Ox O2 Delivery O2 Flow Rate FiO2 02/24/20 10:43 97.8 84 19 129/58 (81) 94 Nasal Cannula 3.0 97.8 Weight Weight [ ] Input and Output Intake and Output Intake and Output 02/24/20 07:00 Intake Total 300 ml Output Total 475 ml Balance -175 ml Intake Oral 300 ml Output Urine Total 475 ml Laboratory Labs Laboratory Tests Test 02/23/20 15:58 02/23/20 20:22 02/23/20 21:05 02/24/20 04:50 Glucose (Fingerstick) 305 mg/dL (70-99) 314 mg/dL (70-99) Heparin Anti-Xa Act, Unfractionated 0.15 IU/mL (0.30-0.70) 0.34 IU/mL (0.30-0.70) Sodium Level 135 mmol/L (136-145) Potassium Level 4.1 mmol/L (3.5-5.1) Chloride Level 98 mmol/L (98-107) Carbon Dioxide Level 26 mmol/L (21-32) Anion Gap 11 (6-14) Blood Urea Nitrogen 21 mg/dL (7-20) Creatinine 1.4 mg/dL (0.6-1.0) Estimated GFR (Cockcroft-Gault) 37.1 Glucose Level 296 mg/dL (70-99) Calcium Level 7.9 mg/dL (8.5-10.1) Magnesium Level 2.1 mg/dL (1.8-2.4) Triglycerides Level 76 mg/dL (0-150) Cholesterol Level 90 mg/dL (0-200) LDL Cholesterol, Calculated 31 mg/dL (0-100) VLDL Cholesterol, Calculated 15 mg/dL (0-40) Non-HDL Cholesterol Calculated 46 mg/dL (0-129) HDL Cholesterol 44 mg/dL (40-60) Cholesterol/HDL Ratio 2.0 Test 02/24/20 07:08 02/24/20 11:27 02/24/20 12:35 Glucose (Fingerstick) 249 mg/dL (70-99) 297 mg/dL (70-99) Heparin Anti-Xa Act, Unfractionated 0.14 IU/mL (0.30-0.70) Physical Exam HEENT: Neck Supple W Full Motion Chest: Symmetric LUNGS: Clear to Auscultation Heart: S1S2, RRR Abdomen: Soft N/T, Other (obese ) Extremities: No Edema Neurology: alert, oriented, follow commands Assessment Assessment 1. Chest pain; atypical. AMI ruled out. Cardiac catheterization 10/2018 showed patent LAD stent and 80% stenosis in small-caliber diagonal branch, which was noted in prior cardiac catheterization and is being medically managed. 2. Acute respiratory failure with possible recurrent PE. VQ with intermediated probability for PE 3. Severe ICM/NICM: EF at 20-25%. s/p AICD ([place] A). Device check. On Entresto. Clinically well-compensated 4. H/o VT with ICD discharge. On Amiodarone for rhythm maintenance 5. DM2/HLP: Continue current treatment 6. CAD: s/p PCI/LAD, with recent cardiac catheterization results noted above. 7. PAD: s/p percutaneous revascularization. stable 8. CKD; Cr stable per review 9. HTN: controlled 10. H/o PE s/p IVC filter. This was removed 02/18/20. Has been off OAC 11. Hypomagnesemia Recommendations Continue amiodarone for rhythm maintenance, VT suppression Secondary prevention measures HF optimization with Entresto, Lasix OAC as per pulm Supportive care Consider outpatient ischemic evaluation Justicifation of Admission Dx: Justifications for Admission: Justification of Admission Dx: Yes Comments: recurrent PE SHWETA NUÑEZ APRN Feb 24, 2020 15:14
--- NOTE | 2020-02-24 15:23 | NUR ---
RN NOTE patients COVID test came back negative orders received to transfer patient. Report given to Lubna HURTADO and patient transferred to [facility] via wheelchair
--- NOTE | 2020-02-24 15:30 | NUR ---
PATIENT ARRIVED ON THE UNIT PER WHEELCHAIR A TRANSFER FROM THE 6TH FLOOR, PATIENT ALERT AND VERBALLY RESPONSIVE, DENIES PAIN/DISCOMFORT, COMFORT MEASURES GIVEN, 02 PER N/C AT 3LITERS, HEPARIN GTT INFUSING AT 17.3CC/HR OR 19 UNITS/KG., WILL MONITOR.
--- NOTE | 2020-02-24 15:38 | NUR ---
RN NOTE lab manuel patients 1100 UFH and called with critical high of 1.1, this RN asked lab to redraw because of the big jump. lab redrew at 1235 after heparin was stopped for 15 minutes per labs request and UFH came back at .14. Because of the big gap this RN asked lab to redraw so that patient heparin can be adjusted accordingly. Lab came and redrew at 1515 this information given to Lubna HURTADO still waiting on results at this time.
[2020-02-24] MEDS ORDERED: WARFARIN 5 MG TABLET. PO ONE (16:00)
--- NOTE | 2020-02-24 16:11 | NUR ---
SW following. Coordinated care with RN and reviewed chart. Pt transferred to ICU. Pt on 3 02. Pt is being re-tested for COVID.
--- NOTE | 2020-02-24 16:35 | RAD ---
EXAM: Bilateral lower extremity venous Doppler. HISTORY: Bilateral lower extremity pain/swelling. COMPARISON: None. FINDINGS: Grayscale and Doppler analysis of the both lower extremity deep venous systems was performed with graded compression and augmentation. The common femoral, greater saphenous, superficial femoral, popliteal and calf veins were assessed. There is no evidence of deep venous thrombosis. IMPRESSION: 1. No evidence of deep venous thrombosis. Electronically signed by: Mariposa Ann MD (02/24/2020 4:32 PM) [id number]
[2020-02-24] MEDS: MONTELUKAST SODIUM 10 MG TABLET. PO SCH (21:01)
[2020-02-24] MEDS: ATORVASTATIN CALCIUM 40 MG TABLET. PO SCH (21:01)
[2020-02-24] MEDS: INSULIN GLARGINE SYRINGE. SQ SCH (21:07)
[2020-02-25 03:15] VITALS: BP 126/56
[2020-02-25] MEDS: ALPRAZolam 0.25 MG TABLET PO PRN ×2 (04:01→21:17)
[2020-02-25 05:25] LABS: HEMATOCRIT 29.4 % (36.0-47.0); HEMOGLOBIN 9.5 g/dL (12.0-15.5); RED BLOOD COUNT 4.09 x10^6/uL (3.50-5.40); RED CELL DISTRIBUTION WIDTH 19.5 % (11.5-14.5); WHITE BLOOD COUNT 9.1 x10^3/uL (4.0-11.0)
[2020-02-25 05:45] LABS: CALCIUM 8.2 mg/dL (8.5-10.1); CREATININE 1.3 mg/dL (0.6-1.0); GFR 40.4; POTASSIUM 3.7 mmol/L (3.5-5.1)
[2020-02-25] MEDS: HYDROcodone/APAP 7.5/325MG 1 TAB TABLET PO PRN ×2 (06:16→21:17)
[2020-02-25] MEDS: LEVOTHYROXINE 100 MCG TABLET PO SCH (06:16)
[2020-02-25 07:00] VITALS: BP 112/56
[2020-02-25] MEDS: INSULIN LISPRO 300 UNITS/3 ML VIAL. SQ SCH ×6 (08:00→17:35)
[2020-02-25 08:12] LABS: PROTHROMBIN TIME PATIENT 14.5 SEC (11.7-14.0)
[2020-02-25] MEDS: FENOFIBRATE,MICRONIZED 134 MG CAPSULE PO SCH (08:26)
[2020-02-25] MEDS: CITALOPRAM 20 MG TABLET. PO SCH (08:26)
[2020-02-25] MEDS: GABAPENTIN 100 MG CAPSULE. PO SCH ×2 (08:27→21:16)
[2020-02-25] MEDS: PANTOPRAZOLE 40 MG TABLET.DR. PO SCH (08:27)
[2020-02-25] MEDS: ASPIRIN CHEWABLE 81 MG TABLET. PO SCH (08:27)
[2020-02-25] MEDS: SACUBITRIL/VALSARTAN 49/51MG TABLET. PO SCH (08:27)
[2020-02-25] MEDS: FUROSEMIDE 20 MG TABLET PO SCH ×2 (08:27→13:50)
[2020-02-25] MEDS: ISOSORBIDE MONONITRATE ER 30 MG TAB.ER.24H PO SCH (08:28)
[2020-02-25] MEDS: DOCUSATE SODIUM 100 MG CAPSULE. PO SCH ×2 (08:28→21:16)
[2020-02-25] MEDS: AMIODARONE HCL 200 MG TABLET. PO SCH (08:42)
[2020-02-25] MEDS: HEPARIN 25,000UTS/250ML PREMIX 250 ML IV PRN ×2 (08:46→23:14)
--- NOTE | 2020-02-25 09:15 | PDOC ---
PROGRESS NOTES Chief Complaint Chief Complaint A/P: Acute Hypoxic Resp Failure secondary to recurrent PE Chest pain; atypical. AMI ruled out. Acute respiratory failure with possible PE. Severe ICM/NICM: H/o VT with ICD discharge. DM2 HLD CADs/p PCI/LAD PAD: s/p percutaneous revascularization. CKD HTN H/o PE s/p IVC filter. Hypomagnesemia History of breast cancer with prior left mastectomy. Abnormal CXR with possible faint mild interstitial infiltrates rule out covid 19 PLAN full dose AC for now VQ with intermediated probability for PE Cardiac catheterization 10/2018 showed patent LAD stent and 80% stenosis in small-caliber diagonal branch, which was noted in prior cardiac catheterization and is being medically managed. EF at 20-25%. s/p AICD ([facility] [facility] A). Device check. On Entresto On Amiodarone for rhythm maintenance IVF filter removed 02/18/20. Has been off OAC Replace Mg Add imdur per cards continue lasix continue 02 apprec pulm and cards input dvt ppx: full dose ac History of Present Illness History of Present Illness 69-year-old obese patient with a BMI of 35. She has no significant tobacco history. She has cardiomyopathy with an EF of 20%-25%. She also has history of pulmonary embolism, which was in 2019. She was taken off her anticoagulation after her V/Q scan did not reveal any persistent pulmonary embolism. She also had an IVC filter, which the Hematology recommended to be removed. The patient's Dopplers were negative and followup V/Q scan was negative for PE. The patient underwent a removal of IVC filter on the 02/17. Returned to ED with hugo rtness of breath. VQ scan consistent with right lower lobe mismatch, started on heparin and warfarin. She is feeling wiped out, short of breath. No CP currently, still on 5L NCO2 currently. Afebrile. Vitals Vitals Vital Signs Date Time Temp Pulse Resp B/P (MAP) Pulse Ox O2 Delivery O2 Flow Rate FiO2 02/25/20 08:42 96 126/56 02/25/20 07:16 20 95 Nasal Cannula 3.0 02/25/20 03:15 97.8 97.8 Physical Exam General: Alert, Oriented X3, Cooperative, No acute distress Heart: Regular rate Lungs: Other (decrease bs) Abdomen: Normal bowel sounds, Soft, No tenderness Extremities: No cyanosis Skin: No breakdown Labs LABS Laboratory Tests Test 02/24/20 11:27 02/24/20 12:35 02/24/20 15:15 02/24/20 17:04 Glucose (Fingerstick) 297 mg/dL (70-99) 156 mg/dL (70-99) Heparin Anti-Xa Act, Unfractionated 0.14 IU/mL (0.30-0.70) 0.25 IU/mL (0.30-0.70) Test 02/24/20 21:08 02/24/20 22:25 02/25/20 05:15 02/25/20 07:54 Glucose (Fingerstick) 111 mg/dL (70-99) 199 mg/dL (70-99) Heparin Anti-Xa Act, Unfractionated 0.39 IU/mL (0.30-0.70) 0.51 IU/mL (0.30-0.70) White Blood Count 9.1 x10^3/uL (4.0-11.0) Red Blood Count 4.09 x10^6/uL (3.50-5.40) Hemoglobin 9.5 g/dL (12.0-15.5) Hematocrit 29.4 % (36.0-47.0) Mean Corpuscular Volume 72 fL (79-100) Mean Corpuscular Hemoglobin 23 pg (25-35) Mean Corpuscular Hemoglobin Concent 32 g/dL (31-37) Red Cell Distribution Width 19.5 % (11.5-14.5) Platelet Count 216 x10^3/uL (140-400) Prothrombin Time 14.5 SEC (11.7-14.0) Prothromb Time International Ratio 1.2 (0.8-1.1) Sodium Level 133 mmol/L (136-145) Potassium Level 3.7 mmol/L (3.5-5.1) Chloride Level 97 mmol/L (98-107) Carbon Dioxide Level 27 mmol/L (21-32) Anion Gap 9 (6-14) Blood Urea Nitrogen 19 mg/dL (7-20) Creatinine 1.3 mg/dL (0.6-1.0) Estimated GFR (Cockcroft-Gault) 40.4 Glucose Level 178 mg/dL (70-99) Calcium Level 8.2 mg/dL (8.5-10.1) Assessment and Plan Assessmemt and Plan Problems Medical Problems: (1) Chest pain Status: Acute (2) Elevated d-dimer Status: Acute (3) Suspected 2019 novel coronavirus infection Status: Acute Comment Review of Relevant I have reviewed the following items juliette (where applicable) has been applied. Labs Laboratory Tests Test 02/23/20 13:55 02/23/20 15:58 02/23/20 20:22 02/23/20 21:05 Glucose (Fingerstick) 265 mg/dL (70-99) 305 mg/dL (70-99) 314 mg/dL (70-99) Heparin Anti-Xa Act, Unfractionated 0.15 IU/mL (0.30-0.70) Test 02/24/20 04:50 02/24/20 07:08 02/24/20 11:27 02/24/20 12:35 Heparin Anti-Xa Act, Unfractionated 0.34 IU/mL (0.30-0.70) 0.14 IU/mL (0.30-0.70) Sodium Level 135 mmol/L (136-145) Potassium Level 4.1 mmol/L (3.5-5.1) Chloride Level 98 mmol/L (98-107) Carbon Dioxide Level 26 mmol/L (21-32) Anion Gap 11 (6-14) Blood Urea Nitrogen 21 mg/dL (7-20) Creatinine 1.4 mg/dL (0.6-1.0) Estimated GFR (Cockcroft-Gault) 37.1 Glucose Level 296 mg/dL (70-99) Calcium Level 7.9 mg/dL (8.5-10.1) Magnesium Level 2.1 mg/dL (1.8-2.4) Triglycerides Level 76 mg/dL (0-150) Cholesterol Level 90 mg/dL (0-200) LDL Cholesterol, Calculated 31 mg/dL (0-100) VLDL Cholesterol, Calculated 15 mg/dL (0-40) Non-HDL Cholesterol Calculated 46 mg/dL (0-129) HDL Cholesterol 44 mg/dL (40-60) Cholesterol/HDL Ratio 2.0 Glucose (Fingerstick) 249 mg/dL (70-99) 297 mg/dL (70-99) Test 02/24/20 15:15 02/24/20 17:04 02/24/20 21:08 02/24/20 22:25 Heparin Anti-Xa Act, Unfractionated 0.25 IU/mL (0.30-0.70) 0.39 IU/mL (0.30-0.70) Glucose (Fingerstick) 156 mg/dL (70-99) 111 mg/dL (70-99) Test 02/25/20 05:15 02/25/20 07:54 White Blood Count 9.1 x10^3/uL (4.0-11.0) Red Blood Count 4.09 x10^6/uL (3.50-5.40) Hemoglobin 9.5 g/dL (12.0-15.5) Hematocrit 29.4 % (36.0-47.0) Mean Corpuscular Volume 72 fL (79-100) Mean Corpuscular Hemoglobin 23 pg (25-35) Mean Corpuscular Hemoglobin Concent 32 g/dL (31-37) Red Cell Distribution Width 19.5 % (11.5-14.5) Platelet Count 216 x10^3/uL (140-400) Prothrombin Time 14.5 SEC (11.7-14.0) Prothromb Time International Ratio 1.2 (0.8-1.1) Heparin Anti-Xa Act, Unfractionated 0.51 IU/mL (0.30-0.70) Sodium Level 133 mmol/L (136-145) Potassium Level 3.7 mmol/L (3.5-5.1) Chloride Level 97 mmol/L (98-107) Carbon Dioxide Level 27 mmol/L (21-32) Anion Gap 9 (6-14) Blood Urea Nitrogen 19 mg/dL (7-20) Creatinine 1.3 mg/dL (0.6-1.0) Estimated GFR (Cockcroft-Gault) 40.4 Glucose Level 178 mg/dL (70-99) Calcium Level 8.2 mg/dL (8.5-10.1) Glucose (Fingerstick) 199 mg/dL (70-99) Laboratory Tests Test 02/24/20 11:27 02/24/20 12:35 02/24/20 15:15 02/24/20 17:04 Glucose (Fingerstick) 297 mg/dL (70-99) 156 mg/dL (70-99) Heparin Anti-Xa Act, Unfractionated 0.14 IU/mL (0.30-0.70) 0.25 IU/mL (0.30-0.70) Test 02/24/20 21:08 02/24/20 22:25 02/25/20 05:15 02/25/20 07:54 Glucose (Fingerstick) 111 mg/dL (70-99) 199 mg/dL (70-99) Heparin Anti-Xa Act, Unfractionated 0.39 IU/mL (0.30-0.70) 0.51 IU/mL (0.30-0.70) White Blood Count 9.1 x10^3/uL (4.0-11.0) Red Blood Count 4.09 x10^6/uL (3.50-5.40) Hemoglobin 9.5 g/dL (12.0-15.5) Hematocrit 29.4 % (36.0-47.0) Mean Corpuscular Volume 72 fL (79-100) Mean Corpuscular Hemoglobin 23 pg (25-35) Mean Corpuscular Hemoglobin Concent 32 g/dL (31-37) Red Cell Distribution Width 19.5 % (11.5-14.5) Platelet Count 216 x10^3/uL (140-400) Prothrombin Time 14.5 SEC (11.7-14.0) Prothromb Time International Ratio 1.2 (0.8-1.1) Sodium Level 133 mmol/L (136-145) Potassium Level 3.7 mmol/L (3.5-5.1) Chloride Level 97 mmol/L (98-107) Carbon Dioxide Level 27 mmol/L (21-32) Anion Gap 9 (6-14) Blood Urea Nitrogen 19 mg/dL (7-20) Creatinine 1.3 mg/dL (0.6-1.0) Estimated GFR (Cockcroft-Gault) 40.4 Glucose Level 178 mg/dL (70-99) Calcium Level 8.2 mg/dL (8.5-10.1) Medications Current Medications Aspirin (Brandee Aspirin) 325 mg 1X ONCE PO ; Start 02/22/20 at 22:30; Stop 02/22/20 at 22:26; Status DC Acetaminophen (Tylenol) 500 mg 1X ONCE PO Last administered on 02/22/20at 22:34; Start 02/22/20 at 23:00; Stop 02/22/20 at 23:01; Status DC Ondansetron HCl (Zofran) 4 mg PRN Q8HRS PRN IV NAUSEA/VOMITING 1ST CHOICE; Start 02/23/20 at 00:45; Stop 02/24/20 at 00:44; Status DC Insulin Human Lispro (HumaLOG) 0-5 UNITS TIDWMEALS SQ Last administered on 02/24/20at 08:50; Start 02/23/20 at 08:00 Dextrose (Dextrose 50%-Water Syringe) 12.5 gm PRN Q15MIN PRN IV SEE COMMENTS; Start 02/23/20 at 00:45 Magnesium Sulfate 50 ml @ 25 mls/hr 1X ONCE IV Last administered on 02/23/20at 09:38; Start 02/23/20 at 09:15; Stop 02/23/20 at 11:14; Status DC Acetaminophen (Tylenol) 650 mg PRN Q6HRS PRN PO MILD PAIN / TEMP > 100.3'F Last administered on 02/24/20at 21:02; Start 02/23/20 at 12:45 Alprazolam (Xanax) 0.25 mg PRN BID PRN PO ANXIETY / AGITATION Last administered on 02/25/20at 04:01; Start 02/23/20 at 12:45 Amiodarone HCl (Cordarone) 200 mg DAILY PO Last administered on 02/25/20at 08:42; Start 02/23/20 at 14:00 Aspirin (Aspirin Chewable) 81 mg DAILY PO Last administered on 02/25/20at 08:27; Start 02/23/20 at 14:00 Atorvastatin Calcium (Lipitor) 40 mg HS PO Last administered on 02/24/20at 21:01; Start 02/23/20 at 21:00 Citalopram Hydrobromide (CeleXA) 20 mg DAILY08 PO Last administered on 02/25/20at 08:26; Start 02/23/20 at 14:00 Docusate Sodium (Colace) 100 mg BID PO Last administered on 02/25/20at 08:28; Start 02/23/20 at 14:00 Furosemide (Lasix) 20 mg BID92 PO Last administered on 02/25/20 08:27; Start 02/23/20 at 14:00 Gabapentin (Neurontin) 100 mg BID PO Last administered on 02/25/20 08:27; Start 02/23/20 at 14:00 Acetaminophen/ Hydrocodone Bitart (Lortab 7.5/325) 1 tab PRN Q4HRS PRN PO MODERATE PAIN Last administered on 02/25/20 06:16; Start 02/23/20 at 12:45 Levothyroxine Sodium (Synthroid) 100 mcg DAILY06 PO Last administered on 02/25/20 06:16; Start 02/23/20 at 14:00 Montelukast Sodium (Singulair) 10 mg HS PO Last administered on 02/24/20 21:01; Start 02/23/20 at 21:00 Pantoprazole Sodium (Protonix) 40 mg DAILYAC PO Last administered on 02/25/20 08:27; Start 02/23/20 at 16:30 Fenofibrate (Lofibra) 134 mg DAILY PO Last administered on 02/25/20 08:26; Start 02/23/20 at 14:00 Insulin Glargine (Lantus Syringe) 35 unit QHS SQ Last administered on 02/24/20 21:07; Start 02/23/20 at 21:00 Sacubitril/ Valsartan (Entresto 49 Mg-51 Mg) 1 tab DAILY PO Last administered on 02/25/20 08:27; Start 02/23/20 at 14:00 Heparin Sodium (Porcine) (Heparin Sodium) 4,000 unit 1X ONCE IV Last administered on 02/23/20at 15:05; Start 02/23/20 at 14:30; Stop 02/23/20 at 14:31; Status DC Heparin Sodium/ Dextrose 250 ml @ 0 mls/hr CONT PRN IV PER PROTOCOL Last administered on 02/24/20 04:34; Start 02/23/20 at 14:30; Stop 02/24/20 at 12:46; Status DC Heparin Sodium (Porcine) (Heparin Sodium) 2,750 unit PRN Q6HRS PRN IV FOR UFH LEVEL LESS THAN 0.2 Last administered on 02/23/20at 22:28; Start 02/23/20 at 14:30; Stop 02/24/20 at 12:46; Status DC Heparin Sodium (Porcine) (Heparin Sodium) 1,350 unit PRN Q6HRS PRN IV FOR UFH LEVEL 0.2 - 0.29; Start 02/23/20 at 14:30; Stop 02/24/20 at 12:46; Status DC Insulin Human Lispro (HumaLOG) 10 units 1X ONCE SQ Last administered on 02/23/20at 16:46; Start 02/23/20 at 16:45; Stop 02/23/20 at 16:46; Status DC Isosorbide Mononitrate (Imdur) 30 mg DAILY PO Last administered on 02/25/20at 08:28; Start 02/24/20 at 09:00 Info (Anti-Coagulation Monitoring By Pharmacy) 1 each PRN DAILY PRN MC SEE COMMENTS Last administered on 02/24/20at 12:13; Start 02/24/20 at 12:15 Insulin Human Regular (HumuLIN R VIAL) 35 unit TID SQ ; Start 02/24/20 at 14:00; Stop 02/24/20 at 12:23; Status DC Insulin Human Lispro (HumaLOG) 35 units TIDWMEALS SQ Last administered on 02/25/20at 08:34; Start 02/24/20 at 13:00 Apixaban (Eliquis) 10 mg BID PO ; Start 02/24/20 at 13:00; Stop 03/01/20 at 21:01; Status Cancel Apixaban (Eliquis) 5 mg BID PO ; Start 03/02/20 at 09:00; Status Cancel Warfarin Sodium (Coumadin Per Pharmacy) 1 each PRN DAILY PRN MC SEE COMMENTS; Start 02/24/20 at 13:15 Warfarin Sodium (Coumadin) 5 mg 1X WARF ONCE PO Last administered on 02/24/20at 15:03; Start 02/24/20 at 16:00; Stop 02/24/20 at 16:01; Status DC Heparin Sodium/ Dextrose 250 ml @ 0 mls/hr CONT PRN IV PER PROTOCOL Last administered on 02/25/20at 08:46; Start 02/24/20 at 13:45 Heparin Sodium (Porcine) (Heparin Sodium) 2,750 unit PRN Q6HRS PRN IV FOR UFH LEVEL LESS THAN 0.2 Last administered on 02/24/20at 16:34; Start 02/24/20 at 13:45 Heparin Sodium (Porcine) (Heparin Sodium) 1,350 unit PRN Q6HRS PRN IV FOR UFH LEVEL 0.2 - 0.29; Start 02/24/20 at 13:45 Active Scripts Active Colace (Docusate Sodium) 100 Mg Capsule 1 Cap PO BID 30 Days Alprazolam 0.25 Mg Tablet 1 Tab PO BID PRN Reported Entresto 97 mg-103 mg Tablet (Sacubitril/Valsartan) 1 Each Tablet 0.5 Each PO DAILY Aspirin 81 Mg Tab.chew 81 Mg PO DAILY Citalopram Hbr (Citalopram Hydrobromide) 20 Mg Tablet 1 Tab PO DAILY08 Hydrocodone-Apap 7.5-325 (Hydrocodone Bit/Acetaminophen) 1 Tab Tablet 1 Tab PO Q4HRS PRN Furosemide 20 Mg Tablet 20 Mg PO BID Amiodarone Hcl 200 Mg Tablet 1 Tab PO DAILY Montelukast Sodium Tablet (Montelukast Sodium) 10 Mg Tablet 10 Mg PO HS Levothyroxine Sodium 100 Mcg Tablet 1 Tab PO DAILY Proair Hfa Inhaler (Albuterol Sulfate) 8.5 Gm Hfa.aer.ad 2 Puff IH PRN Q4-6HRS Tylenol (Acetaminophen) 325 Mg Tablet 650 Mg PO Fenofibrate (Fenofibrate Nanocrystallized) 145 Mg Tablet 1 Tab PO DAILY Humalog (Insulin Lispro) 100 Unit/1 Ml Vial 35 Unit SQ TID Lantus Solostar (Insulin Glargine,Hum.rec.anlog) 100 Unit/1 Ml Insuln.pen 35 Unit SQ HS Pantoprazole Sodium (Pantoprazole Sodium) 40 Mg Tablet.dr 40 Mg PO DAILY Atorvastatin Calcium 40 Mg Tablet 40 Mg PO HS Gabapentin (Gabapentin) 100 Mg Capsule 100 Mg PO BID Vitals/I & O Vital Sign - Last 24 Hours 02/24/20 02/24/20 02/24/20 02/24/20 10:43 15:00 15:30 19:40 Temp 97.8 97.7 98.4 97.7 97.8 97.7 98.4 97.7 Pulse 84 76 87 89 Resp 19 18 20 22 B/P (MAP) 129/58 (81) 120/72 (88) 101/50 (67) 122/61 (81) Pulse Ox 94 96 95 97 O2 Delivery Nasal Cannula Nasal Cannula Nasal Cannula Nasal Cannula O2 Flow Rate 3.0 1.0 3.0 3.0 02/24/20 02/24/20 02/25/20 02/25/20 20:00 23:00 03:15 06:16 Temp 98.9 97.8 98.9 97.8 Pulse 92 96 Resp 20 22 20 B/P (MAP) 118/56 (76) 126/56 (79) Pulse Ox 95 95 95 O2 Delivery Nasal Cannula Nasal Cannula Nasal Cannula Nasal Cannula O2 Flow Rate 3.0 3.0 3.0 3.0 02/25/20 02/25/20 02/25/20 02/25/20 07:16 08:27 08:28 08:42 Pulse 96 96 96 Resp 20 B/P (MAP) 126/56 126/56 126/56 Pulse Ox 95 O2 Delivery Nasal Cannula O2 Flow Rate 3.0 Intake and Output 02/24/20 02/24/20 02/25/20 15:00 23:00 07:00 Intake Total 600 ml 250 ml 420 ml Output Total 400 ml 200 ml Balance 200 ml 250 ml 220 ml GINA PATEL MD Feb 25, 2020 09:15
[2020-02-25 11:00] VITALS: BP 109/52
--- NOTE | 2020-02-25 11:31 | PDOC ---
SHWETA NUÑEZ DATABASE ADMINISTRATOR 02/25/20 1131: CARDIO Progress Notes Date and Time Date of Service 02/25/20 Time of Evaluation 1130 Subjective Subjective: No Chest Pain, No Palpitations, No Dizziness, Other (SOA last night laying down. Feelin better sitting up ) Vitals Vitals Vital Signs Date Time Temp Pulse Resp B/P (MAP) Pulse Ox O2 Delivery O2 Flow Rate FiO2 02/25/20 08:42 96 126/56 02/25/20 08:00 Nasal Cannula 3.0 02/25/20 07:16 20 95 02/25/20 07:00 98.9 98.9 Weight Weight [ ] Input and Output Intake and Output Intake and Output 02/25/20 07:00 Intake Total 1270 ml Output Total 600 ml Balance 670 ml Intake Oral 1270 ml Output Urine Total 600 ml # Bowel Movements 1 Laboratory Labs Laboratory Tests Test 02/24/20 12:35 02/24/20 15:15 02/24/20 17:04 02/24/20 21:08 Heparin Anti-Xa Act, Unfractionated 0.14 IU/mL (0.30-0.70) 0.25 IU/mL (0.30-0.70) Glucose (Fingerstick) 156 mg/dL (70-99) 111 mg/dL (70-99) Test 02/24/20 22:25 02/25/20 05:15 02/25/20 07:54 Heparin Anti-Xa Act, Unfractionated 0.39 IU/mL (0.30-0.70) 0.51 IU/mL (0.30-0.70) White Blood Count 9.1 x10^3/uL (4.0-11.0) Red Blood Count 4.09 x10^6/uL (3.50-5.40) Hemoglobin 9.5 g/dL (12.0-15.5) Hematocrit 29.4 % (36.0-47.0) Mean Corpuscular Volume 72 fL (79-100) Mean Corpuscular Hemoglobin 23 pg (25-35) Mean Corpuscular Hemoglobin Concent 32 g/dL (31-37) Red Cell Distribution Width 19.5 % (11.5-14.5) Platelet Count 216 x10^3/uL (140-400) Prothrombin Time 14.5 SEC (11.7-14.0) Prothromb Time International Ratio 1.2 (0.8-1.1) Sodium Level 133 mmol/L (136-145) Potassium Level 3.7 mmol/L (3.5-5.1) Chloride Level 97 mmol/L (98-107) Carbon Dioxide Level 27 mmol/L (21-32) Anion Gap 9 (6-14) Blood Urea Nitrogen 19 mg/dL (7-20) Creatinine 1.3 mg/dL (0.6-1.0) Estimated GFR (Cockcroft-Gault) 40.4 Glucose Level 178 mg/dL (70-99) Calcium Level 8.2 mg/dL (8.5-10.1) Glucose (Fingerstick) 199 mg/dL (70-99) Physical Exam HEENT: Neck Supple W Full Motion Chest: Symmetric LUNGS: Other (fine bibasilar crackles.) Heart: S1S2, RRR Abdomen: Soft N/T, Other (obese ) Extremities: No Edema Neurology: alert, oriented, follow commands Assessment Assessment 1. Chest pain; atypical. AMI ruled out. Cardiac catheterization 10/2018 showed patent LAD stent and 80% stenosis in small-caliber diagonal branch, which was noted in prior cardiac catheterization 2. Acute respiratory failure with possible recurrent PE. VQ with intermediated probability for PE. On heparin. Warfarin initiated 3. Acute on chronic systolic CHF with severe ICM/NICM: EF at 20-25%. s/p AICD ([facility] [facility] A). On Entresto. 4. H/o VT with ICD discharge. On Amiodarone for rhythm maintenance 5. DM2/HLP: Continue current treatment 6. CAD: s/p PCI/LAD, with recent cardiac catheterization results noted above. 7. PAD: s/p percutaneous revascularization. stable 8. CKD; Cr stable per review 9. HTN: controlled 10. H/o PE s/p IVC filter. This was removed 02/18/20. Has been off OAC Recommendations HF optimization with Entresto, Lasix. Will give extra dose of Lasix today. Continue amiodarone for rhythm maintenance, VT suppression Secondary prevention measures OAC therapy Supportive care Justicifation of Admission Dx: Justifications for Admission: Justification of Admission Dx: Yes CATIE LÓPEZ MD 02/25/20 1709: CARDIO Progress Notes Assessment Assessment Patient seen and examined. Agree with HARDWARE TEST ENGINEER's assessment and plan. Chest pain with atypical features. Recent cardiac catheterization results noted above. Acute on chronic systolic heart failure better compensated. Continue amiodarone for VT suppression. Anticoagulation for PE per pulmonary team. SHWETA NUÑEZ APRN Feb 25, 2020 11:31 CATIE LÓPEZ MD Feb 25, 2020 17:09
--- NOTE | 2020-02-25 12:42 | PDOC ---
PULMONARY PROGRESS NOTES Subjective no soa Vitals Vital Signs Date Time Temp Pulse Resp B/P (MAP) Pulse Ox O2 Delivery O2 Flow Rate FiO2 02/25/20 11:00 98.2 82 16 109/52 (71) 98 Room Air 98.2 02/25/20 08:00 3.0 General: Alert, No acute distress Lungs: Other (decrease bs) Cardiovascular: S1, S2 Abdomen: Soft, Other (obese) Extremities: Other (1+edema) Skin: Warm Labs Laboratory Tests Test 02/23/20 13:55 02/23/20 15:58 02/23/20 20:22 02/23/20 21:05 Glucose (Fingerstick) 265 mg/dL (70-99) 305 mg/dL (70-99) 314 mg/dL (70-99) Heparin Anti-Xa Act, Unfractionated 0.15 IU/mL (0.30-0.70) Test 02/24/20 04:50 02/24/20 07:08 02/24/20 11:27 02/24/20 12:35 Heparin Anti-Xa Act, Unfractionated 0.34 IU/mL (0.30-0.70) 0.14 IU/mL (0.30-0.70) Sodium Level 135 mmol/L (136-145) Potassium Level 4.1 mmol/L (3.5-5.1) Chloride Level 98 mmol/L (98-107) Carbon Dioxide Level 26 mmol/L (21-32) Anion Gap 11 (6-14) Blood Urea Nitrogen 21 mg/dL (7-20) Creatinine 1.4 mg/dL (0.6-1.0) Estimated GFR (Cockcroft-Gault) 37.1 Glucose Level 296 mg/dL (70-99) Calcium Level 7.9 mg/dL (8.5-10.1) Magnesium Level 2.1 mg/dL (1.8-2.4) Triglycerides Level 76 mg/dL (0-150) Cholesterol Level 90 mg/dL (0-200) LDL Cholesterol, Calculated 31 mg/dL (0-100) VLDL Cholesterol, Calculated 15 mg/dL (0-40) Non-HDL Cholesterol Calculated 46 mg/dL (0-129) HDL Cholesterol 44 mg/dL (40-60) Cholesterol/HDL Ratio 2.0 Glucose (Fingerstick) 249 mg/dL (70-99) 297 mg/dL (70-99) Test 02/24/20 15:15 02/24/20 17:04 02/24/20 21:08 02/24/20 22:25 Heparin Anti-Xa Act, Unfractionated 0.25 IU/mL (0.30-0.70) 0.39 IU/mL (0.30-0.70) Glucose (Fingerstick) 156 mg/dL (70-99) 111 mg/dL (70-99) Test 02/25/20 05:15 02/25/20 07:54 02/25/20 12:12 White Blood Count 9.1 x10^3/uL (4.0-11.0) Red Blood Count 4.09 x10^6/uL (3.50-5.40) Hemoglobin 9.5 g/dL (12.0-15.5) Hematocrit 29.4 % (36.0-47.0) Mean Corpuscular Volume 72 fL (79-100) Mean Corpuscular Hemoglobin 23 pg (25-35) Mean Corpuscular Hemoglobin Concent 32 g/dL (31-37) Red Cell Distribution Width 19.5 % (11.5-14.5) Platelet Count 216 x10^3/uL (140-400) Prothrombin Time 14.5 SEC (11.7-14.0) Prothromb Time International Ratio 1.2 (0.8-1.1) Heparin Anti-Xa Act, Unfractionated 0.51 IU/mL (0.30-0.70) Sodium Level 133 mmol/L (136-145) Potassium Level 3.7 mmol/L (3.5-5.1) Chloride Level 97 mmol/L (98-107) Carbon Dioxide Level 27 mmol/L (21-32) Anion Gap 9 (6-14) Blood Urea Nitrogen 19 mg/dL (7-20) Creatinine 1.3 mg/dL (0.6-1.0) Estimated GFR (Cockcroft-Gault) 40.4 Glucose Level 178 mg/dL (70-99) Calcium Level 8.2 mg/dL (8.5-10.1) Glucose (Fingerstick) 199 mg/dL (70-99) 243 mg/dL (70-99) Laboratory Tests Test 02/24/20 15:15 02/24/20 17:04 02/24/20 21:08 02/24/20 22:25 Heparin Anti-Xa Act, Unfractionated 0.25 IU/mL (0.30-0.70) 0.39 IU/mL (0.30-0.70) Glucose (Fingerstick) 156 mg/dL (70-99) 111 mg/dL (70-99) Test 02/25/20 05:15 02/25/20 07:54 02/25/20 12:12 White Blood Count 9.1 x10^3/uL (4.0-11.0) Red Blood Count 4.09 x10^6/uL (3.50-5.40) Hemoglobin 9.5 g/dL (12.0-15.5) Hematocrit 29.4 % (36.0-47.0) Mean Corpuscular Volume 72 fL (79-100) Mean Corpuscular Hemoglobin 23 pg (25-35) Mean Corpuscular Hemoglobin Concent 32 g/dL (31-37) Red Cell Distribution Width 19.5 % (11.5-14.5) Platelet Count 216 x10^3/uL (140-400) Prothrombin Time 14.5 SEC (11.7-14.0) Prothromb Time International Ratio 1.2 (0.8-1.1) Heparin Anti-Xa Act, Unfractionated 0.51 IU/mL (0.30-0.70) Sodium Level 133 mmol/L (136-145) Potassium Level 3.7 mmol/L (3.5-5.1) Chloride Level 97 mmol/L (98-107) Carbon Dioxide Level 27 mmol/L (21-32) Anion Gap 9 (6-14) Blood Urea Nitrogen 19 mg/dL (7-20) Creatinine 1.3 mg/dL (0.6-1.0) Estimated GFR (Cockcroft-Gault) 40.4 Glucose Level 178 mg/dL (70-99) Calcium Level 8.2 mg/dL (8.5-10.1) Glucose (Fingerstick) 199 mg/dL (70-99) 243 mg/dL (70-99) Medications Active Scripts Medications Dose Route/Sig Max Daily Dose Days Date Category Entresto 97 mg-103 mg Tablet (Sacubitril/Valsartan) 1 Each Tablet 0.5 Each PO DAILY 02/18/20 Reported Aspirin 81 Mg Tab.chew 81 Mg PO DAILY 02/18/20 Reported Citalopram Hbr (Citalopram Hydrobromide) 20 Mg Tablet 1 Tab PO DAILY08 12/23/19 Reported Hydrocodone-Apap 7.5-325 (Hydrocodone Bit/Acetaminophen) 1 Tab Tablet 1 Tab PO Q4HRS PRN 12/23/19 Reported Furosemide 20 Mg Tablet 20 Mg PO BID 12/23/19 Reported Amiodarone Hcl 200 Mg Tablet 1 Tab PO DAILY 12/23/19 Reported Colace (Docusate Sodium) 100 Mg Capsule 1 Cap PO BID 30 10/14/19 Rx Alprazolam 0.25 Mg Tablet 1 Tab PO BID PRN 10/02/19 Rx Montelukast Sodium Tablet (Montelukast Sodium) 10 Mg Tablet 10 Mg PO HS 11/30/17 Reported Levothyroxine Sodium 100 Mcg Tablet 1 Tab PO DAILY 05/26/16 Reported Proair Hfa Inhaler (Albuterol Sulfate) 8.5 Gm Hfa.aer.ad 2 Puff IH PRN Q4-6HRS 05/20/15 Reported Tylenol (Acetaminophen) 325 Mg Tablet 650 Mg PO 05/14/15 Reported Fenofibrate (Fenofibrate Nanocrystallized) 145 Mg Tablet 1 Tab PO DAILY 05/14/15 Reported Humalog (Insulin Lispro) 100 Unit/1 Ml Vial 35 Unit SQ TID 04/08/14 Reported Lantus Solostar (Insulin Glargine,Hum.rec.anlog) 100 Unit/1 Ml Insuln.pen 35 Unit SQ HS 04/08/14 Reported Pantoprazole Sodium (Pantoprazole Sodium) 40 Mg Tablet.dr 40 Mg PO DAILY 04/08/14 Reported Atorvastatin Calcium 40 Mg Tablet 40 Mg PO HS 04/08/14 Reported Gabapentin (Gabapentin) 100 Mg Capsule 100 Mg PO BID 04/08/14 Reported Impression . 1. Dyspnea with acute hypoxic respiratory failure. Likely secondary to recurrent pulmonary embolism. Her Perfusion scan shows a large perfusion defect in the right lower lobe. There is no definite consolidation on the plain chest x-ray. Ventilation scan was not performed. The previous perfusion scan, which was done on 01/27/2020 had no significant perfusion defects. She has now IVC filter removal and has become symptomatic since the filter has been removed. 2. No significant tobacco history. 3. Cardiomyopathy with an ejection fraction of 20%-25% with possible mild congestive heart failure. She has severe global hypokinesis. She is status post stents. 4. 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 5. History of breast cancer with prior left mastectomy. 6. Abnormal CXR with possible faint mild interstitial infiltrates. The patient is on amiodarone. We will also assess for any amiodarone-induced interstitial infiltrates or interstitial lung disease. Plan . 1. full-dose anticoagulation with heparin/ Pt cannot afford eliquis/ Xarelto. started on coumadin 2. Continue Lasix. 3. dc heparin ,once INR therapeutic. will be on lifelong coumadin 4. venous Dopplers of lower extremities neg 5. The patient is on amiodarone. We will also assess for any amiodarone-induced interstitial infiltrates or interstitial lung disease.. chest ct today 6. Continue oxygen to keep saturation 92 and above. 7. Discussed with WONG ZHANG MD Feb 25, 2020 12:42
--- NOTE | 2020-02-25 13:30 | NUR ---
SS following for discharge planning. SS reviewed pt chart and discussed with pt RN. Pt is from home and is currently requiring oxygen. Pt has home oxygen at home. Pt on Heparin drip and INR currently 1.2. Pt COVID19 negative. SS will continue to follow for discharge planning.
[2020-02-25] MEDS: ANTI-COAG MONITOR BY PHARMACY. MC PRN (13:48)
[2020-02-25] MEDS: ACETAMINOPHEN 325 MG TABLET. PO PRN (13:49)
--- NOTE | 2020-02-25 13:50 | PDOC ---
Renal-Progress Notes Subjective Notes Notes STILL HAS SOB History of Present Illness Hx of present illness NO CHANGE Vitals Vitals Vital Signs Date Time Temp Pulse Resp B/P (MAP) Pulse Ox O2 Delivery O2 Flow Rate FiO2 02/25/20 11:00 98.2 82 16 109/52 (71) 98 Room Air 98.2 02/25/20 08:00 3.0 Weight Weight [ ] I.O. Intake and Output Intake and Output 02/25/20 07:00 Intake Total 1270 ml Output Total 600 ml Balance 670 ml Intake Oral 1270 ml Output Urine Total 600 ml # Bowel Movements 1 Labs Labs Laboratory Tests Test 02/24/20 15:15 02/24/20 17:04 02/24/20 21:08 02/24/20 22:25 Heparin Anti-Xa Act, Unfractionated 0.25 IU/mL (0.30-0.70) 0.39 IU/mL (0.30-0.70) Glucose (Fingerstick) 156 mg/dL (70-99) 111 mg/dL (70-99) Test 02/25/20 05:15 02/25/20 07:54 02/25/20 12:12 White Blood Count 9.1 x10^3/uL (4.0-11.0) Red Blood Count 4.09 x10^6/uL (3.50-5.40) Hemoglobin 9.5 g/dL (12.0-15.5) Hematocrit 29.4 % (36.0-47.0) Mean Corpuscular Volume 72 fL (79-100) Mean Corpuscular Hemoglobin 23 pg (25-35) Mean Corpuscular Hemoglobin Concent 32 g/dL (31-37) Red Cell Distribution Width 19.5 % (11.5-14.5) Platelet Count 216 x10^3/uL (140-400) Prothrombin Time 14.5 SEC (11.7-14.0) Prothromb Time International Ratio 1.2 (0.8-1.1) Heparin Anti-Xa Act, Unfractionated 0.51 IU/mL (0.30-0.70) Sodium Level 133 mmol/L (136-145) Potassium Level 3.7 mmol/L (3.5-5.1) Chloride Level 97 mmol/L (98-107) Carbon Dioxide Level 27 mmol/L (21-32) Anion Gap 9 (6-14) Blood Urea Nitrogen 19 mg/dL (7-20) Creatinine 1.3 mg/dL (0.6-1.0) Estimated GFR (Cockcroft-Gault) 40.4 Glucose Level 178 mg/dL (70-99) Calcium Level 8.2 mg/dL (8.5-10.1) Glucose (Fingerstick) 199 mg/dL (70-99) 243 mg/dL (70-99) Review of Systems Constitutional: yes: weakness, alert, oriented Ears/Nose/Throat: Yes: no symptom reported Eyes: Yes: no symptom reported Pulmonary: Yes dyspnea Cardiovascular: Yes no symptom reported Gastrointestional: Yes: constipation Genitourinary: Yes: no symptom reported Musculoskeletal: Yes: no symptom reported Skin: Yes no symptom reported Psychiatric/Neurological: Yes: no symptom reported Endocrine: Yes: no symptom reported Physical Exam General Appearance: no apparent distress Skin: warm Respiratory: decreased breath sounds Heart: S1S2 Abdomen: soft, bowel sounds present Genitourinary: bladder flat Neurology: alert, oriented, follow commands Assessment Assessment IMP CKD STAGE 3-CR AT BASELINE OF 1.8-2.0 HX OF HTN HX OF DM II DYSPNEA-ACUTE HYPOXIC RESP FAILURE RECURRENT PULMONARY EMBOLI CM WITH EF OF 20-25% CAD WITH HX OF STENTS PLAN HER RENAL FXN IS STABLE CONT ANTICOAGULATION MAXIMIZE TX FOR CM AFTER LOAD REDUCTION WITH ENTRESTO AND LASIX INCREASE LASIX WILL FOLLOW COMPA GALLAGHER MD Feb 25, 2020 13:50
--- NOTE | 2020-02-25 13:55 | NUR ---
Pharmacy Warfarin Dosing Note S:Pharmacy consulted to assist with anticoagulation therapy started 02/24/20 with target INR: 2-3 O:VALENTINO SINGH is a 69 year old F with DVT/PE LABS: Last INR: 1.2 Last HGB: 9.5 Last HCT: 29.4 Last PLT: 216 Last dose of 5 mg given on 02/24/20 at 1503 Vitamin K given: N Drug Interaction Changes: Same Interacting Drug Ongoing Drug Interactions: amiodarone, citalopram, fenofibrate A:INR of 1.2 is below desired range. Target range for this patient is: P: Warfarin dose: 5MG Today at 1600 Bridge Therapy: Heparin Therapeutic Next INR due TOMORROW Pharmacy anticoagulation service will continue to follow. Yocasta Ramirez RPH, 02/25/20 [id number]
[2020-02-25] MEDS: FUROSEMIDE 40 MG TABLET. PO SCH (14:51)
[2020-02-25 15:00] VITALS: BP 110/60
[2020-02-25] MEDS ORDERED: WARFARIN 5 MG TABLET. PO ONE (16:00)
--- NOTE | 2020-02-25 17:02 | RAD ---
Chest CT without contrast Clinical indications: Interstitial lung disease. Chest pain and shortness of air. Interstitial infiltrates seen on chest x-ray dated February 22, 2020. TECHNIQUE: Noncontrast helical CT scanning of the chest was performed. Without IV contrast, the sensitivity to detect organ pathology is decreased. PQRS compliance Statement One or more of the following individualized dose reduction techniques were utilized for this study: 1. Automated exposure control 2. Adjustment of the mA and/or kV according to patient size 3. Use of iterative reconstruction technique COMPARISON: No previous chest CT available. FINDINGS: Right paratracheal lymph node is seen measuring 16 mm. The left breast is surgically absent. No axillary lymphadenopathy is evident. No focal aneurysmal dilatation of the thoracic aorta is seen. The heart size is mildly enlarged. No pericardial effusion is seen. Calcified atheromatous disease of the coronary arteries is seen. Small right-sided pleural effusion and moderate size left-sided pleural effusion is seen. There is associated compressive atelectasis of the left lower lobe. Consolidative lung infiltrate is seen within the anterior medial aspects of the left upper lobe and within the superior and basal segments of the entire right lower lobe. No pneumothorax is seen. Proximal bronchial tree is patent. No adrenal mass is seen. Surgical clips are seen within the right upper quadrant typical of a cholecystectomy. However, there is a fluid collection within the gallbladder fossa measuring up to 35 mm. No lytic process is seen. IMPRESSION: Bilateral consolidative lung infiltrates which may represent pneumonia or aspiration pneumonitis. Moderate size left-sided pleural effusion and associated compressive atelectasis of the left lower lobe. Small right-sided pleural effusion. Right paratracheal lymphadenopathy which may be reactive in nature. Mild cardiomegaly. Calcified atheromatous disease of the coronary arteries. 35 mm fluid collection within the gallbladder fossa. Cholecystectomy clips are apparent. Electronically signed by: Beck Hsieh MD (02/25/2020 4:59 PM) [id number]
[2020-02-25 19:38] VITALS: BP 116/54
[2020-02-25] MEDS: INSULIN GLARGINE SYRINGE. SQ SCH (21:00)
[2020-02-25] MEDS: MONTELUKAST SODIUM 10 MG TABLET. PO SCH (21:16)
[2020-02-25] MEDS: ATORVASTATIN CALCIUM 40 MG TABLET. PO SCH (21:16)
[2020-02-25 22:34] VITALS: BP 97/52
[2020-02-26 02:46] VITALS: BP 115/57
[2020-02-26 06:16] LABS: CALCIUM 8.4 mg/dL (8.5-10.1); CREATININE 1.4 mg/dL (0.6-1.0); GFR 37.1; POTASSIUM 3.7 mmol/L (3.5-5.1)
[2020-02-26] MEDS: LEVOTHYROXINE 100 MCG TABLET PO SCH (06:24)
[2020-02-26 07:00] VITALS: BP 154/86
[2020-02-26] MEDS: INSULIN LISPRO 300 UNITS/3 ML VIAL. SQ SCH ×6 (08:00→18:14)
[2020-02-26] MEDS: ISOSORBIDE MONONITRATE ER 30 MG TAB.ER.24H PO SCH (08:29)
[2020-02-26] MEDS: HYDROcodone/APAP 7.5/325MG 1 TAB TABLET PO PRN ×3 (08:30→20:54)
[2020-02-26] MEDS: FENOFIBRATE,MICRONIZED 134 MG CAPSULE PO SCH (08:30)
[2020-02-26] MEDS: ASPIRIN CHEWABLE 81 MG TABLET. PO SCH (08:30)
[2020-02-26] MEDS: SACUBITRIL/VALSARTAN 49/51MG TABLET. PO SCH (08:30)
[2020-02-26] MEDS: DOCUSATE SODIUM 100 MG CAPSULE. PO SCH ×2 (08:30→20:54)
[2020-02-26] MEDS: PANTOPRAZOLE 40 MG TABLET.DR. PO SCH (08:31)
[2020-02-26] MEDS: CITALOPRAM 20 MG TABLET. PO SCH (08:31)
[2020-02-26] MEDS: FUROSEMIDE 40 MG TABLET. PO SCH ×2 (08:31→15:47)
[2020-02-26] MEDS: GABAPENTIN 100 MG CAPSULE. PO SCH ×2 (08:31→20:54)
--- NOTE | 2020-02-26 09:13 | PDOC ---
PROGRESS NOTES Chief Complaint Chief Complaint A/P: Acute Hypoxic Resp Failure secondary to recurrent PE Chest pain; atypical. AMI ruled out. Acute respiratory failure with possible PE. Severe ICM/NICM: H/o VT with ICD discharge. DM2 HLD CADs/p PCI/LAD PAD: s/p percutaneous revascularization. CKD HTN H/o PE s/p IVC filter. Hypomagnesemia History of breast cancer with prior left mastectomy. Abnormal CXR with possible faint mild interstitial infiltrates rule out covid 19 PLAN full dose AC for now VQ with intermediated probability for PE Cardiac catheterization 10/2018 showed patent LAD stent and 80% stenosis in small-caliber diagonal branch, which was noted in prior cardiac catheterization and is being medically managed. EF at 20-25%. s/p AICD ([facility] [facility] A). Device check. On Entresto On Amiodarone for rhythm maintenance IVF filter removed 02/18/20. Has been off OAC Replace Mg Add imdur per cards continue lasix continue 02 apprec pulm and cards input dvt ppx: full dose ac History of Present Illness History of Present Illness Ms Rodriguez is a 69 yo obese patient with a BMI of 35. She has no significant tobacco history. She has cardiomyopathy with an EF of 20%-25%. She also has history of pulmonary embolism, which was in 2019. She was taken off her anticoagulation after her V/Q scan did not reveal any persistent pulmonary embolism. She also had an IVC filter, which the Hematology recommended to be removed. The patient's Dopplers were negative and followup V/Q scan was negative for PE. The patient underwent a removal of IVC filter on the 02/17. Returned to ED with shortness of breath. VQ scan consistent with right lower lobe mismatch, started on heparin and warfarin. 02/24: She is feeling wiped out, short of breath. No CP currently, still on 5L NCO2 currently. Afebrile. CT chest. Bilateral consolidative lung infiltrates which may represent pneumonia or aspiration pneumonitis. Moderate size left-sided pleural effusion and associated compressive atelectasis of the left lower lobe. Small right-sided pleural effusion. Right paratracheal lymphadenopathy which may be reactive in nature. Mild cardiomegaly. Calcified atheromatous disease of the coronary arteries. 35 mm fluid collection within the gallbladder fossa. Cholecystectomy clips are apparent. She is still feeling poorly, weak. Iron 8. Cr down to 1.4. Afebrile. Based on CT results, starting antibiotics and iron today, lasix IV per cardiology. INR is 1, will need to adjust warfarin and ask SENIOR FINANCIAL REPORTING ACCOUNTANT evaluate based on left upper lobe and right lower lobe and aspiration may be occuring, she agrees. Vitals Vitals Vital Signs Date Time Temp Pulse Resp B/P (MAP) Pulse Ox O2 Delivery O2 Flow Rate FiO2 02/26/20 08:30 91 115/57 02/26/20 08:30 18 95 Nasal Cannula 3.0 02/26/20 07:00 99.7 99.7 Physical Exam General: Alert, Oriented X3, Cooperative, No acute distress Heart: Regular rate Lungs: Other (decrease bs) Abdomen: Normal bowel sounds, Soft, No tenderness Extremities: No cyanosis Skin: No breakdown Labs LABS Laboratory Tests Test 02/25/20 12:12 02/25/20 17:31 02/25/20 21:24 02/25/20 22:45 Glucose (Fingerstick) 243 mg/dL (70-99) 116 mg/dL (70-99) 65 mg/dL (70-99) 92 mg/dL (70-99) Test 02/26/20 05:18 02/26/20 07:45 Prothrombin Time 14.0 SEC (11.7-14.0) Prothromb Time International Ratio 1.1 (0.8-1.1) Heparin Anti-Xa Act, Unfractionated 0.40 IU/mL (0.30-0.70) Sodium Level 134 mmol/L (136-145) Potassium Level 3.7 mmol/L (3.5-5.1) Chloride Level 97 mmol/L (98-107) Carbon Dioxide Level 27 mmol/L (21-32) Anion Gap 10 (6-14) Blood Urea Nitrogen 20 mg/dL (7-20) Creatinine 1.4 mg/dL (0.6-1.0) Estimated GFR (Cockcroft-Gault) 37.1 Glucose Level 159 mg/dL (70-99) Calcium Level 8.4 mg/dL (8.5-10.1) Glucose (Fingerstick) 167 mg/dL (70-99) Assessment and Plan Assessmemt and Plan Problems Medical Problems: (1) Chest pain Status: Acute (2) Elevated d-dimer Status: Acute (3) Suspected 2019 novel coronavirus infection Status: Acute Comment Review of Relevant I have reviewed the following items juliette (where applicable) has been applied. Labs Laboratory Tests Test 02/24/20 11:27 02/24/20 12:35 02/24/20 15:15 02/24/20 17:04 Glucose (Fingerstick) 297 mg/dL (70-99) 156 mg/dL (70-99) Heparin Anti-Xa Act, Unfractionated 0.14 IU/mL (0.30-0.70) 0.25 IU/mL (0.30-0.70) Test 02/24/20 21:08 02/24/20 22:25 02/25/20 05:15 02/25/20 07:54 Glucose (Fingerstick) 111 mg/dL (70-99) 199 mg/dL (70-99) Heparin Anti-Xa Act, Unfractionated 0.39 IU/mL (0.30-0.70) 0.51 IU/mL (0.30-0.70) White Blood Count 9.1 x10^3/uL (4.0-11.0) Red Blood Count 4.09 x10^6/uL (3.50-5.40) Hemoglobin 9.5 g/dL (12.0-15.5) Hematocrit 29.4 % (36.0-47.0) Mean Corpuscular Volume 72 fL (79-100) Mean Corpuscular Hemoglobin 23 pg (25-35) Mean Corpuscular Hemoglobin Concent 32 g/dL (31-37) Red Cell Distribution Width 19.5 % (11.5-14.5) Platelet Count 216 x10^3/uL (140-400) Prothrombin Time 14.5 SEC (11.7-14.0) Prothromb Time International Ratio 1.2 (0.8-1.1) Sodium Level 133 mmol/L (136-145) Potassium Level 3.7 mmol/L (3.5-5.1) Chloride Level 97 mmol/L (98-107) Carbon Dioxide Level 27 mmol/L (21-32) Anion Gap 9 (6-14) Blood Urea Nitrogen 19 mg/dL (7-20) Creatinine 1.3 mg/dL (0.6-1.0) Estimated GFR (Cockcroft-Gault) 40.4 Glucose Level 178 mg/dL (70-99) Calcium Level 8.2 mg/dL (8.5-10.1) Test 02/25/20 12:12 02/25/20 17:31 02/25/20 21:24 02/25/20 22:45 Glucose (Fingerstick) 243 mg/dL (70-99) 116 mg/dL (70-99) 65 mg/dL (70-99) 92 mg/dL (70-99) Test 02/26/20 05:18 02/26/20 07:45 Prothrombin Time 14.0 SEC (11.7-14.0) Prothromb Time International Ratio 1.1 (0.8-1.1) Heparin Anti-Xa Act, Unfractionated 0.40 IU/mL (0.30-0.70) Sodium Level 134 mmol/L (136-145) Potassium Level 3.7 mmol/L (3.5-5.1) Chloride Level 97 mmol/L (98-107) Carbon Dioxide Level 27 mmol/L (21-32) Anion Gap 10 (6-14) Blood Urea Nitrogen 20 mg/dL (7-20) Creatinine 1.4 mg/dL (0.6-1.0) Estimated GFR (Cockcroft-Gault) 37.1 Glucose Level 159 mg/dL (70-99) Calcium Level 8.4 mg/dL (8.5-10.1) Glucose (Fingerstick) 167 mg/dL (70-99) Laboratory Tests Test 02/25/20 12:12 02/25/20 17:31 02/25/20 21:24 02/25/20 22:45 Glucose (Fingerstick) 243 mg/dL (70-99) 116 mg/dL (70-99) 65 mg/dL (70-99) 92 mg/dL (70-99) Test 02/26/20 05:18 02/26/20 07:45 Prothrombin Time 14.0 SEC (11.7-14.0) Prothromb Time International Ratio 1.1 (0.8-1.1) Heparin Anti-Xa Act, Unfractionated 0.40 IU/mL (0.30-0.70) Sodium Level 134 mmol/L (136-145) Potassium Level 3.7 mmol/L (3.5-5.1) Chloride Level 97 mmol/L (98-107) Carbon Dioxide Level 27 mmol/L (21-32) Anion Gap 10 (6-14) Blood Urea Nitrogen 20 mg/dL (7-20) Creatinine 1.4 mg/dL (0.6-1.0) Estimated GFR (Cockcroft-Gault) 37.1 Glucose Level 159 mg/dL (70-99) Calcium Level 8.4 mg/dL (8.5-10.1) Glucose (Fingerstick) 167 mg/dL (70-99) Medications Current Medications Aspirin (Brandee Aspirin) 325 mg 1X ONCE PO ; Start 02/22/20 at 22:30; Stop 02/22/20 at 22:26; Status DC Acetaminophen (Tylenol) 500 mg 1X ONCE PO Last administered on 02/22/20at 22:34; Start 02/22/20 at 23:00; Stop 02/22/20 at 23:01; Status DC Ondansetron HCl (Zofran) 4 mg PRN Q8HRS PRN IV NAUSEA/VOMITING 1ST CHOICE; Start 02/23/20 at 00:45; Stop 02/24/20 at 00:44; Status DC Insulin Human Lispro (HumaLOG) 0-5 UNITS TIDWMEALS SQ Last administered on 02/25/20at 12:33; Start 02/23/20 at 08:00 Dextrose (Dextrose 50%-Water Syringe) 12.5 gm PRN Q15MIN PRN IV SEE COMMENTS; Start 02/23/20 at 00:45 Magnesium Sulfate 50 ml @ 25 mls/hr 1X ONCE IV Last administered on 02/23/20at 09:38; Start 02/23/20 at 09:15; Stop 02/23/20 at 11:14; Status DC Acetaminophen (Tylenol) 650 mg PRN Q6HRS PRN PO MILD PAIN / TEMP > 100.3'F Last administered on 02/25/20at 13:49; Start 02/23/20 at 12:45 Alprazolam (Xanax) 0.25 mg PRN BID PRN PO ANXIETY / AGITATION Last administered on 02/25/20at 21:17; Start 02/23/20 at 12:45 Amiodarone HCl (Cordarone) 200 mg DAILY PO Last administered on 02/25/20 08:42; Start 02/23/20 at 14:00 Aspirin (Aspirin Chewable) 81 mg DAILY PO Last administered on 02/26/20 08:30; Start 02/23/20 at 14:00 Atorvastatin Calcium (Lipitor) 40 mg HS PO Last administered on 02/25/20 21:16; Start 02/23/20 at 21:00 Citalopram Hydrobromide (CeleXA) 20 mg DAILY08 PO Last administered on 02/26/20 08:31; Start 02/23/20 at 14:00 Docusate Sodium (Colace) 100 mg BID PO Last administered on 02/26/20 08:30; Start 02/23/20 at 14:00 Furosemide (Lasix) 20 mg BID92 PO Last administered on 02/25/20 13:50; Start 02/23/20 at 14:00; Stop 02/25/20 at 13:51; Status DC Gabapentin (Neurontin) 100 mg BID PO Last administered on 02/26/20 08:31; Start 02/23/20 at 14:00 Acetaminophen/ Hydrocodone Bitart (Lortab 7.5/325) 1 tab PRN Q4HRS PRN PO MODERATE PAIN Last administered on 02/26/20 08:30; Start 02/23/20 at 12:45 Levothyroxine Sodium (Synthroid) 100 mcg DAILY06 PO Last administered on 02/02 06:24; Start 02/23/20 at 14:00 Montelukast Sodium (Singulair) 10 mg HS PO Last administered on 02/25/20 21:16; Start 02/23/20 at 21:00 Pantoprazole Sodium (Protonix) 40 mg DAILYAC PO Last administered on 02/26/20 08:31; Start 02/23/20 at 16:30 Fenofibrate (Lofibra) 134 mg DAILY PO Last administered on 02/26/20 08:30; Start 02/23/20 at 14:00 Insulin Glargine (Lantus Syringe) 35 unit QHS SQ Last administered on 02/24/20 21:07; Start 02/23/20 at 21:00 Sacubitril/ Valsartan (Entresto 49 Mg-51 Mg) 1 tab DAILY PO Last administered on 6/25/20at 08:30; Start 02/23/20 at 14:00 Heparin Sodium (Porcine) (Heparin Sodium) 4,000 unit 1X ONCE IV Last administered on 02/23/20at 15:05; Start 02/23/20 at 14:30; Stop 02/23/20 at 14:31; Status DC Heparin Sodium/ Dextrose 250 ml @ 0 mls/hr CONT PRN IV PER PROTOCOL Last administered on 02/24/20at 04:34; Start 02/23/20 at 14:30; Stop 02/24/20 at 12:46; Status DC Heparin Sodium (Porcine) (Heparin Sodium) 2,750 unit PRN Q6HRS PRN IV FOR UFH LEVEL LESS THAN 0.2 Last administered on 02/23/20at 22:28; Start 02/23/20 at 14:30; Stop 02/24/20 at 12:46; Status DC Heparin Sodium (Porcine) (Heparin Sodium) 1,350 unit PRN Q6HRS PRN IV FOR UFH LEVEL 0.2 - 0.29; Start 02/23/20 at 14:30; Stop 02/24/20 at 12:46; Status DC Insulin Human Lispro (HumaLOG) 10 units 1X ONCE SQ Last administered on 02/23/20at 16:46; Start 02/23/20 at 16:45; Stop 02/23/20 at 16:46; Status DC Isosorbide Mononitrate (Imdur) 30 mg DAILY PO Last administered on 02/26/20at 08:29; Start 02/24/20 at 09:00 Info (Anti-Coagulation Monitoring By Pharmacy) 1 each PRN DAILY PRN MC SEE COMMENTS Last administered on 02/25/20at 13:48; Start 02/24/20 at 12:15 Insulin Human Regular (HumuLIN R VIAL) 35 unit TID SQ ; Start 02/24/20 at 14:00; Stop 02/24/20 at 12:23; Status DC Insulin Human Lispro (HumaLOG) 35 units TIDWMEALS SQ Last administered on 02/26/20at 08:37; Start 02/24/20 at 13:00 Apixaban (Eliquis) 10 mg BID PO ; Start 02/24/20 at 13:00; Stop 03/01/20 at 21:01; Status Cancel Apixaban (Eliquis) 5 mg BID PO ; Start 03/02/20 at 09:00; Status Cancel Warfarin Sodium (Coumadin Per Pharmacy) 1 each PRN DAILY PRN MC SEE COMMENTS Last administered on 02/25/20at 13:56; Start 02/24/20 at 13:15 Warfarin Sodium (Coumadin) 5 mg 1X WARF ONCE PO Last administered on 02/24/20at 15:03; Start 02/24/20 at 16:00; Stop 02/24/20 at 16:01; Status DC Heparin Sodium/ Dextrose 250 ml @ 0 mls/hr CONT PRN IV PER PROTOCOL Last administered on 02/25/20at 23:14; Start 02/24/20 at 13:45 Heparin Sodium (Porcine) (Heparin Sodium) 2,750 unit PRN Q6HRS PRN IV FOR UFH LEVEL LESS THAN 0.2 Last administered on 02/24/20at 16:34; Start 02/24/20 at 13:45 Heparin Sodium (Porcine) (Heparin Sodium) 1,350 unit PRN Q6HRS PRN IV FOR UFH LEVEL 0.2 - 0.29; Start 02/24/20 at 13:45 Furosemide (Lasix) 40 mg BID92 PO Last administered on 02/26/20at 08:31; Start 02/25/20 at 14:00 Warfarin Sodium (Coumadin) 5 mg 1X WARF ONCE PO Last administered on 02/25/20at 17:14; Start 02/25/20 at 16:00; Stop 02/25/20 at 16:01; Status DC Active Scripts Active Colace (Docusate Sodium) 100 Mg Capsule 1 Cap PO BID 30 Days Alprazolam 0.25 Mg Tablet 1 Tab PO BID PRN Reported Entresto 97 mg-103 mg Tablet (Sacubitril/Valsartan) 1 Each Tablet 0.5 Each PO DAILY Aspirin 81 Mg Tab.chew 81 Mg PO DAILY Citalopram Hbr (Citalopram Hydrobromide) 20 Mg Tablet 1 Tab PO DAILY08 Hydrocodone-Apap 7.5-325 (Hydrocodone Bit/Acetaminophen) 1 Tab Tablet 1 Tab PO Q4HRS PRN Furosemide 20 Mg Tablet 20 Mg PO BID Amiodarone Hcl 200 Mg Tablet 1 Tab PO DAILY Montelukast Sodium Tablet (Montelukast Sodium) 10 Mg Tablet 10 Mg PO HS Levothyroxine Sodium 100 Mcg Tablet 1 Tab PO DAILY Proair Hfa Inhaler (Albuterol Sulfate) 8.5 Gm Hfa.aer.ad 2 Puff IH PRN Q4-6HRS Tylenol (Acetaminophen) 325 Mg Tablet 650 Mg PO Fenofibrate (Fenofibrate Nanocrystallized) 145 Mg Tablet 1 Tab PO DAILY Humalog (Insulin Lispro) 100 Unit/1 Ml Vial 35 Unit SQ TID Lantus Solostar (Insulin Glargine,Hum.rec.anlog) 100 Unit/1 Ml Insuln.pen 35 Unit SQ HS Pantoprazole Sodium (Pantoprazole Sodium) 40 Mg Tablet.dr 40 Mg PO DAILY Atorvastatin Calcium 40 Mg Tablet 40 Mg PO HS Gabapentin (Gabapentin) 100 Mg Capsule 100 Mg PO BID Vitals/I & O Vital Sign - Last 24 Hours 02/25/20 02/25/20 02/25/20 02/25/20 11:00 15:00 19:38 20:00 Temp 98.2 99.4 98.4 98.2 99.4 98.4 Pulse 82 95 92 Resp 16 16 16 B/P (MAP) 109/52 (71) 110/60 (77) 116/54 (74) Pulse Ox 98 94 98 O2 Delivery Room Air Room Air Nasal Cannula Nasal Cannula O2 Flow Rate 3.0 3.0 02/25/20 02/25/20 02/25/20 02/26/20 21:17 22:17 22:34 02:46 Temp 99.6 98.2 99.6 98.2 Pulse 98 91 Resp 18 18 18 18 B/P (MAP) 97/52 (67) 115/57 (76) Pulse Ox 98 97 97 95 O2 Delivery Nasal Cannula Nasal Cannula Nasal Cannula Nasal Cannula O2 Flow Rate 3.0 3.0 3.0 3.0 02/26/20 02/26/20 02/26/20 02/26/20 07:00 08:29 08:30 08:30 Temp 99.7 99.7 Pulse 109 91 91 Resp 18 18 B/P (MAP) 154/86 (108) 115/57 115/57 Pulse Ox 93 95 O2 Delivery Nasal Cannula Nasal Cannula O2 Flow Rate 3.0 3.0 Intake and Output 02/25/20 02/25/20 02/26/20 15:00 23:00 07:00 Intake Total 100 ml 120 ml Output Total 950 ml Balance 100 ml -830 ml GINA PATEL MD Feb 26, 2020 09:13
--- NOTE | 2020-02-26 10:48 | PDOC ---
PULMONARY PROGRESS NOTES Subjective Patient not more short of air, no chest pain Vitals Vital Signs Date Time Temp Pulse Resp B/P (MAP) Pulse Ox O2 Delivery O2 Flow Rate FiO2 02/26/20 08:30 91 115/57 02/26/20 08:30 18 95 Nasal Cannula 3.0 02/26/20 07:00 99.7 99.7 ROS: No Nausea, No Chest Pain, No Abdominal Pain General: Alert, No acute distress Lungs: Other (decrease bs) Cardiovascular: S1, S2 Abdomen: Soft, Other (obese) Extremities: Other (1+edema) Skin: Warm Labs Laboratory Tests Test 02/24/20 11:27 02/24/20 12:35 02/24/20 15:15 02/24/20 17:04 Glucose (Fingerstick) 297 mg/dL (70-99) 156 mg/dL (70-99) Heparin Anti-Xa Act, Unfractionated 0.14 IU/mL (0.30-0.70) 0.25 IU/mL (0.30-0.70) Test 02/24/20 21:08 02/24/20 22:25 02/25/20 05:15 02/25/20 07:54 Glucose (Fingerstick) 111 mg/dL (70-99) 199 mg/dL (70-99) Heparin Anti-Xa Act, Unfractionated 0.39 IU/mL (0.30-0.70) 0.51 IU/mL (0.30-0.70) White Blood Count 9.1 x10^3/uL (4.0-11.0) Red Blood Count 4.09 x10^6/uL (3.50-5.40) Hemoglobin 9.5 g/dL (12.0-15.5) Hematocrit 29.4 % (36.0-47.0) Mean Corpuscular Volume 72 fL (79-100) Mean Corpuscular Hemoglobin 23 pg (25-35) Mean Corpuscular Hemoglobin Concent 32 g/dL (31-37) Red Cell Distribution Width 19.5 % (11.5-14.5) Platelet Count 216 x10^3/uL (140-400) Prothrombin Time 14.5 SEC (11.7-14.0) Prothromb Time International Ratio 1.2 (0.8-1.1) Sodium Level 133 mmol/L (136-145) Potassium Level 3.7 mmol/L (3.5-5.1) Chloride Level 97 mmol/L (98-107) Carbon Dioxide Level 27 mmol/L (21-32) Anion Gap 9 (6-14) Blood Urea Nitrogen 19 mg/dL (7-20) Creatinine 1.3 mg/dL (0.6-1.0) Estimated GFR (Cockcroft-Gault) 40.4 Glucose Level 178 mg/dL (70-99) Calcium Level 8.2 mg/dL (8.5-10.1) Test 02/25/20 12:12 02/25/20 17:31 02/25/20 21:24 02/25/20 22:45 Glucose (Fingerstick) 243 mg/dL (70-99) 116 mg/dL (70-99) 65 mg/dL (70-99) 92 mg/dL (70-99) Test 02/26/20 05:18 02/26/20 07:45 Prothrombin Time 14.0 SEC (11.7-14.0) Prothromb Time International Ratio 1.1 (0.8-1.1) Heparin Anti-Xa Act, Unfractionated 0.40 IU/mL (0.30-0.70) Sodium Level 134 mmol/L (136-145) Potassium Level 3.7 mmol/L (3.5-5.1) Chloride Level 97 mmol/L (98-107) Carbon Dioxide Level 27 mmol/L (21-32) Anion Gap 10 (6-14) Blood Urea Nitrogen 20 mg/dL (7-20) Creatinine 1.4 mg/dL (0.6-1.0) Estimated GFR (Cockcroft-Gault) 37.1 Glucose Level 159 mg/dL (70-99) Calcium Level 8.4 mg/dL (8.5-10.1) Iron Level 8 ug/dL (50-170) Total Iron Binding Capacity 273 ug/dL (250-450) Iron Saturation 3 % (15-34) Glucose (Fingerstick) 167 mg/dL (70-99) Laboratory Tests Test 02/25/20 12:12 02/25/20 17:31 02/25/20 21:24 02/25/20 22:45 Glucose (Fingerstick) 243 mg/dL (70-99) 116 mg/dL (70-99) 65 mg/dL (70-99) 92 mg/dL (70-99) Test 02/26/20 05:18 02/26/20 07:45 Prothrombin Time 14.0 SEC (11.7-14.0) Prothromb Time International Ratio 1.1 (0.8-1.1) Heparin Anti-Xa Act, Unfractionated 0.40 IU/mL (0.30-0.70) Sodium Level 134 mmol/L (136-145) Potassium Level 3.7 mmol/L (3.5-5.1) Chloride Level 97 mmol/L (98-107) Carbon Dioxide Level 27 mmol/L (21-32) Anion Gap 10 (6-14) Blood Urea Nitrogen 20 mg/dL (7-20) Creatinine 1.4 mg/dL (0.6-1.0) Estimated GFR (Cockcroft-Gault) 37.1 Glucose Level 159 mg/dL (70-99) Calcium Level 8.4 mg/dL (8.5-10.1) Iron Level 8 ug/dL (50-170) Total Iron Binding Capacity 273 ug/dL (250-450) Iron Saturation 3 % (15-34) Glucose (Fingerstick) 167 mg/dL (70-99) Medications Active Scripts Medications Dose Route/Sig Max Daily Dose Days Date Category Entresto 97 mg-103 mg Tablet (Sacubitril/Valsartan) 1 Each Tablet 0.5 Each PO DAILY 02/18/20 Reported Aspirin 81 Mg Tab.chew 81 Mg PO DAILY 02/18/20 Reported Citalopram Hbr (Citalopram Hydrobromide) 20 Mg Tablet 1 Tab PO DAILY08 12/23/19 Reported Hydrocodone-Apap 7.5-325 (Hydrocodone Bit/Acetaminophen) 1 Tab Tablet 1 Tab PO Q4HRS PRN 12/23/19 Reported Furosemide 20 Mg Tablet 20 Mg PO BID 12/23/19 Reported Amiodarone Hcl 200 Mg Tablet 1 Tab PO DAILY 12/23/19 Reported Colace (Docusate Sodium) 100 Mg Capsule 1 Cap PO BID 30 10/14/19 Rx Alprazolam 0.25 Mg Tablet 1 Tab PO BID PRN 10/02/19 Rx Montelukast Sodium Tablet (Montelukast Sodium) 10 Mg Tablet 10 Mg PO HS 11/30/17 Reported Levothyroxine Sodium 100 Mcg Tablet 1 Tab PO DAILY 05/26/16 Reported Proair Hfa Inhaler (Albuterol Sulfate) 8.5 Gm Hfa.aer.ad 2 Puff IH PRN Q4-6HRS 05/20/15 Reported Tylenol (Acetaminophen) 325 Mg Tablet 650 Mg PO 05/14/15 Reported Fenofibrate (Fenofibrate Nanocrystallized) 145 Mg Tablet 1 Tab PO DAILY 05/14/15 Reported Humalog (Insulin Lispro) 100 Unit/1 Ml Vial 35 Unit SQ TID 04/08/14 Reported Lantus Solostar (Insulin Glargine,Hum.rec.anlog) 100 Unit/1 Ml Insuln.pen 35 Unit SQ HS 04/08/14 Reported Pantoprazole Sodium (Pantoprazole Sodium) 40 Mg Tablet.dr 40 Mg PO DAILY 04/08/14 Reported Atorvastatin Calcium 40 Mg Tablet 40 Mg PO HS 04/08/14 Reported Gabapentin (Gabapentin) 100 Mg Capsule 100 Mg PO BID 04/08/14 Reported Impression . 1. Acute hypoxemic respiratory 2. No significant tobacco history. 3. Cardiomyopathy with an ejection fraction of 20%-25% with possible mild congestive heart failure. She has severe global hypokinesis. She is status post stents. 4. 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 5. History of breast cancer with prior left mastectomy. 6. Abnormal CXR with possible faint mild interstitial infiltrates 7. CT no evidence of pulmonary embolus 8. CT with bilateral infiltrates left upper lobe right lower lobe, suspect infectious process, not typical of amiodarone induced lung injury 9. Bilateral pleural effusion Plan . Case discussed with Dr. Mojica Antibiotics Continue amiodarone for now, discussed with cardiology Continue anticoagulation Oxygen supplementation Repeat CT in 8 weeks Obtain speech evaluation Pleural fluid too small to warrant thoracentesis KIRT AGUILLON MD Feb 26, 2020 10:48
[2020-02-26 11:00] VITALS: BP 88/45
--- NOTE | 2020-02-26 11:01 | PDOC ---
[address] [employer] 02/26/20 1101: CARDIO Progress Notes Date and Time Date of Service 02/26/20 Time of Evaluation 1040 Subjective Subjective: No Chest Pain, No Palpitations, No Dizziness, Other (less SOA last night. Feeling better this am) Vitals Vitals Vital Signs Date Time Temp Pulse Resp B/P (MAP) Pulse Ox O2 Delivery O2 Flow Rate FiO2 02/26/20 08:30 91 115/57 02/26/20 08:30 18 95 Nasal Cannula 3.0 02/26/20 07:00 99.7 99.7 Weight Weight [ ] Input and Output Intake and Output Intake and Output 02/26/20 07:00 Intake Total 220 ml Output Total 950 ml Balance -730 ml Intake Oral 220 ml Output Urine Total 950 ml # Voids 2 Laboratory Labs Laboratory Tests Test 02/25/20 12:12 02/25/20 17:31 02/25/20 21:24 02/25/20 22:45 Glucose (Fingerstick) 243 mg/dL (70-99) 116 mg/dL (70-99) 65 mg/dL (70-99) 92 mg/dL (70-99) Test 02/26/20 05:18 02/26/20 07:45 02/26/20 10:47 Prothrombin Time 14.0 SEC (11.7-14.0) Prothromb Time International Ratio 1.1 (0.8-1.1) Heparin Anti-Xa Act, Unfractionated 0.40 IU/mL (0.30-0.70) Sodium Level 134 mmol/L (136-145) Potassium Level 3.7 mmol/L (3.5-5.1) Chloride Level 97 mmol/L (98-107) Carbon Dioxide Level 27 mmol/L (21-32) Anion Gap 10 (6-14) Blood Urea Nitrogen 20 mg/dL (7-20) Creatinine 1.4 mg/dL (0.6-1.0) Estimated GFR (Cockcroft-Gault) 37.1 Glucose Level 159 mg/dL (70-99) Calcium Level 8.4 mg/dL (8.5-10.1) Iron Level 8 ug/dL (50-170) Total Iron Binding Capacity 273 ug/dL (250-450) Iron Saturation 3 % (15-34) Glucose (Fingerstick) 167 mg/dL (70-99) 217 mg/dL (70-99) Review of Systems Constitutional: yes: weakness, alert, oriented Ears/Nose/Throat: Yes: no symptom reported Eyes: Yes: no symptom reported Pulmonary: Yes dyspnea Cardiovascular: Yes no symptom reported Gastrointestional: Yes: constipation Genitourinary: Yes: no symptom reported Musculoskeletal: Yes: no symptom reported Skin: Yes no symptom reported Psychiatric/Neurological: Yes: no symptom reported Endocrine: Yes: no symptom reported Physical Exam HEENT: Neck Supple W Full Motion Chest: Symmetric LUNGS: Other (diminished bases) Heart: S1S2, RRR Abdomen: Soft N/T, Other (obese ) Extremities: No Edema Neurology: alert, oriented, follow commands Assessment Assessment 1. Chest pain; atypical. AMI ruled out. Cardiac catheterization 10/2018 showed patent LAD stent and 80% stenosis in small-caliber diagonal branch, which was noted in prior cardiac catheterization 2. Acute respiratory failure with possible recurrent PE. VQ with intermediated probability for PE. On heparin. Warfarin initiated 3. Acute on chronic systolic CHF with severe ICM/NICM: EF at 20-25%. s/p AICD ([facility]). On Entresto. Better compensated following diuresis, CT check with bilateral infiltrates 4. H/o VT with ICD discharge. On Amiodarone for rhythm maintenance 5. DM2/HLP: Continue current treatment 6. CAD: s/p PCI/LAD, clinically stable. 7. PAD: s/p percutaneous revascularization. stable 8. CKD; Cr stable 9. HTN: controlled 10. H/o PE s/p IVC filter. This was removed 02/18/20 and OAC was discontinued Recommendations HF optimization with Entresto, Lasix therapy Monitor renal function with 40mg BID Secondary prevention measures OAC therapy Continue Amiodarone therapy for VT suppression unless ILD/toxicity is suspected Supportive care Justicifation of Admission Dx: Justifications for Admission: Justification of Admission Dx: Yes CATIE LÓPEZ MD 02/26/20 [id number]: CARDIO Progress Notes Assessment Assessment Patient seen and examined. Agree with MACARONI PRESS OPERATOR assessment and plan. Chest pain with atypical features. Myocardial infarction has been ruled out. CAD status clinically stable. Acute on chronic systolic heart failure better compensated. Continue amiodarone for VT suppression. Telemetry did not show any VT episodes. Continue warfarin for recurrent PE. SAVANNAH,[address] [employer] FIRER Feb 26, 2020 11:01 CATIE LÓPEZ MD Feb 26, 2020 16:35
[2020-02-26] MEDS: AMIODARONE HCL 200 MG TABLET. PO SCH (11:20)
[2020-02-26] MEDS ORDERED: PIP/TAZO PER PHARMACY MC PRN (11:30)
--- NOTE | 2020-02-26 11:45 | PDOC ---
Renal-Progress Notes Subjective Notes Notes NOTHING NEW History of Present Illness Hx of present illness STABLE Vitals Vitals Vital Signs Date Time Temp Pulse Resp B/P (MAP) Pulse Ox O2 Delivery O2 Flow Rate FiO2 02/26/20 11:20 91 115/57 02/26/20 11:00 98.3 18 97 Nasal Cannula 3.0 98.3 Weight Weight [ ] I.O. Intake and Output Intake and Output 02/26/20 07:00 Intake Total 220 ml Output Total 950 ml Balance -730 ml Intake Oral 220 ml Output Urine Total 950 ml # Voids 2 Labs Labs Laboratory Tests Test 02/25/20 12:12 02/25/20 17:31 02/25/20 21:24 02/25/20 22:45 Glucose (Fingerstick) 243 mg/dL (70-99) 116 mg/dL (70-99) 65 mg/dL (70-99) 92 mg/dL (70-99) Test 02/26/20 05:18 02/26/20 07:45 02/26/20 10:47 Prothrombin Time 14.0 SEC (11.7-14.0) Prothromb Time International Ratio 1.1 (0.8-1.1) Heparin Anti-Xa Act, Unfractionated 0.40 IU/mL (0.30-0.70) Sodium Level 134 mmol/L (136-145) Potassium Level 3.7 mmol/L (3.5-5.1) Chloride Level 97 mmol/L (98-107) Carbon Dioxide Level 27 mmol/L (21-32) Anion Gap 10 (6-14) Blood Urea Nitrogen 20 mg/dL (7-20) Creatinine 1.4 mg/dL (0.6-1.0) Estimated GFR (Cockcroft-Gault) 37.1 Glucose Level 159 mg/dL (70-99) Calcium Level 8.4 mg/dL (8.5-10.1) Iron Level 8 ug/dL (50-170) Total Iron Binding Capacity 273 ug/dL (250-450) Iron Saturation 3 % (15-34) Glucose (Fingerstick) 167 mg/dL (70-99) 217 mg/dL (70-99) Review of Systems Constitutional: yes: weakness, alert, oriented Ears/Nose/Throat: Yes: no symptom reported Eyes: Yes: no symptom reported Pulmonary: Yes dyspnea Cardiovascular: Yes no symptom reported Gastrointestional: Yes: constipation Genitourinary: Yes: no symptom reported Musculoskeletal: Yes: no symptom reported Skin: Yes no symptom reported Psychiatric/Neurological: Yes: no symptom reported Endocrine: Yes: no symptom reported Physical Exam General Appearance: no apparent distress Skin: warm Respiratory: decreased breath sounds Heart: S1S2 Abdomen: soft, bowel sounds present Genitourinary: bladder flat Neurology: alert, oriented, follow commands Assessment Assessment IMP CKD STAGE 3-CR AT BASELINE OF 1.8-2.0 HYPONATREMIA-MILD AND STABLE HX OF HTN HX OF DM II DYSPNEA-ACUTE HYPOXIC RESP FAILURE RECURRENT PULMONARY EMBOLI CM WITH EF OF 20-25% CAD WITH HX OF STENTS IRON DEFICIENCY PLAN HER RENAL FXN IS STABLE CONT ANTICOAGULATION MAXIMIZE TX FOR CM AFTER LOAD REDUCTION WITH ENTRESTO AND LASIX INCREASE LASIX CONSIDER IV IRON WILL FOLLOW COMPA GALLAGHER MD Feb 26, 2020 11:45
[2020-02-26] MEDS ORDERED: IRON SUCROSE COMPLEX 200 MG in IV NORMAL SALINE 100ML 100 ML IV ONE (12:00)
[2020-02-26] MEDS ORDERED: PIPERACILLIN/TAZOBACTAM 4.5 GM in IV NORMAL SALINE 100ML 100 ML IV ONE (12:00)
--- NOTE | 2020-02-26 12:02 | NUR ---
SS following for discharge planning. SS reviewed pt chart and discussed with pt RN. Pt INR now 1.1. Pt remains on Heparin drip. SS will continue to follow for discharge planning.
[2020-02-26] MEDS: ANTI-COAG MONITOR BY PHARMACY. MC PRN (12:38)
--- NOTE | 2020-02-26 12:41 | NUR ---
Pharmacy Warfarin Dosing Note S: Pharmacy consulted to assist with anticoagulation therapy started 02/24/20 O: VALENTINO SINGH is a 69 year old F with DVT/PE LABS: Last INR: 1.1 Last HGB: 9.5 Last HCT: 29.4 Last PLT: 216 Last dose of 5 mg given on 02/25/20 at 1714 Vitamin K given: N Ongoing Drug Interactions: amiodarone, citalopram, fenofibrate A:INR of 1.1 is below desired range. Target range for this patient is: 2 -3 P: Warfarin dose: 7.5 mg Today at 1600 Bridge Therapy: Heparin Therapeutic Next INR due tomorrow Pharmacy anticoagulation service will continue to follow. Yocasta Ramirez RPH, 02/26/20 [id number]
[2020-02-26 15:00] VITALS: BP 139/49
[2020-02-26] MEDS ORDERED: WARFARIN 7.5 MG TABLET. PO ONE (16:00)
[2020-02-26] MEDS: FERROUS SULFATE 325 MG TABLET. PO SCH ×2 (18:06→20:54)
[2020-02-26] MEDS: PIPERACILLIN/TAZOBACTAM 4.5 GM in IV NORMAL SALINE 100ML 100 ML IV SCH (18:07)
[2020-02-26 19:00] VITALS: BP 100/47
[2020-02-26] MEDS: ATORVASTATIN CALCIUM 40 MG TABLET. PO SCH (20:54)
[2020-02-26] MEDS: MONTELUKAST SODIUM 10 MG TABLET. PO SCH (20:54)
[2020-02-26] MEDS: ALPRAZolam 0.25 MG TABLET PO PRN (20:59)
[2020-02-26] MEDS: INSULIN GLARGINE SYRINGE. SQ SCH (21:03)
[2020-02-26 23:00] VITALS: BP 114/55
[2020-02-27] MEDS: HEPARIN 25,000UTS/250ML PREMIX 250 ML IV PRN ×2 (00:06→12:52)
[2020-02-27 03:04] VITALS: BP 114/51
[2020-02-27 05:21] LABS: HEMATOCRIT 27.1 % (36.0-47.0); HEMOGLOBIN 8.6 g/dL (12.0-15.5); RED BLOOD COUNT 3.77 x10^6/uL (3.50-5.40); RED CELL DISTRIBUTION WIDTH 19.6 % (11.5-14.5); WHITE BLOOD COUNT 13.5 x10^3/uL (4.0-11.0)
[2020-02-27 05:34] LABS: CALCIUM 8.2 mg/dL (8.5-10.1); CREATININE 1.6 mg/dL (0.6-1.0); GFR 31.8; POTASSIUM 3.7 mmol/L (3.5-5.1)
[2020-02-27] MEDS: PIPERACILLIN/TAZOBACTAM 4.5 GM in IV NORMAL SALINE 100ML 100 ML IV SCH ×4 (06:11→18:16)
[2020-02-27] MEDS: LEVOTHYROXINE 100 MCG TABLET PO SCH (06:12)
[2020-02-27 07:00] VITALS: BP 122/56
[2020-02-27] MEDS: INSULIN LISPRO 300 UNITS/3 ML VIAL. SQ SCH ×6 (08:00→18:20)
--- NOTE | 2020-02-27 08:40 | PDOC ---
PROGRESS NOTES Chief Complaint Chief Complaint A/P: Acute Hypoxic Resp Failure secondary to recurrent PE Chest pain; atypical. AMI ruled out. Acute respiratory failure with possible PE. Severe ICM/NICM: H/o VT with ICD discharge. DM2 HLD CADs/p PCI/LAD PAD: s/p percutaneous revascularization. CKD HTN H/o PE s/p IVC filter. Hypomagnesemia History of breast cancer with prior left mastectomy. Abnormal CXR with possible faint mild interstitial infiltrates rule out covid 19 PLAN full dose AC for now VQ with intermediated probability for PE Cardiac catheterization 10/2018 showed patent LAD stent and 80% stenosis in small-caliber diagonal branch, which was noted in prior cardiac catheterization and is being medically managed. EF at 20-25%. s/p AICD ([place] A). Device check. On Entresto On Amiodarone for rhythm maintenance IVF filter removed 02/18/20. Has been off OAC Replace Mg Add imdur per cards continue lasix continue 02 apprec pulm and cards input dvt ppx: full dose ac History of Present Illness History of Present Illness Ms Rodriguez is a 69 yo obese patient with a BMI of 35. She has no significant tobacco history. She has cardiomyopathy with an EF of 20%-25%. She also has history of pulmonary embolism, which was in 2019. She was taken off her anticoagulation after her V/Q scan did not reveal any persistent pulmonary embolism. She also had an IVC filter, which the Hematology recommended to be removed. The patient's Dopplers were negative and followup V/Q scan was negative for PE. The patient underwent a removal of IVC filter on the 02/17. Returned to ED with shortness of breath. VQ scan consistent with right lower lobe mismatch, started on heparin and warfarin. 02/24: She is feeling wiped out, short of breath. No CP currently, still on 5L NCO2 currently. Afebrile. CT chest. Bilateral consolidative lung infiltrates which may represent pneumonia or aspiration pneumonitis. Moderate size left-sided pleural effusion and associated compressive atelectasis of the left lower lobe. Small right-sided pleural effusion. Right paratracheal lymphadenopathy which may be reactive in nature. Mild cardiomegaly. Calcified atheromatous disease of the coronary arteries. 35 mm fluid collection within the gallbladder fossa. Cholecystectomy clips are apparent. 02/25: She is still feeling poorly, weak. Iron 8. Cr down to 1.4. Afebrile. Based on CT results, starting antibiotics and iron today, lasix IV per cardiology. INR is 1, will need to adjust warfarin and ask TOPOGRAPHICAL SURVEYOR evaluate based on left upper lobe and right lower lobe and aspiration may be occurring. INR 1.5. Cr 1.6. She doesn't feel much better, still with cough. Started on zosyn. Esophogram today. Vitals Vitals Vital Signs Date Time Temp Pulse Resp B/P (MAP) Pulse Ox O2 Delivery O2 Flow Rate FiO2 02/27/20 07:00 98.8 100 18 122/56 (78) 95 Nasal Cannula 3.0 98.8 Physical Exam General: Alert, Oriented X3, Cooperative, No acute distress Heart: Regular rate Lungs: Other (decrease bs) Abdomen: Normal bowel sounds, Soft, No tenderness Extremities: No cyanosis Skin: No breakdown Labs LABS Laboratory Tests Test 02/26/20 10:47 02/26/20 16:20 02/26/20 19:46 02/27/20 04:50 Glucose (Fingerstick) 217 mg/dL (70-99) 190 mg/dL (70-99) 196 mg/dL (70-99) White Blood Count 13.5 x10^3/uL (4.0-11.0) Red Blood Count 3.77 x10^6/uL (3.50-5.40) Hemoglobin 8.6 g/dL (12.0-15.5) Hematocrit 27.1 % (36.0-47.0) Mean Corpuscular Volume 72 fL (79-100) Mean Corpuscular Hemoglobin 23 pg (25-35) Mean Corpuscular Hemoglobin Concent 32 g/dL (31-37) Red Cell Distribution Width 19.6 % (11.5-14.5) Platelet Count 233 x10^3/uL (140-400) Heparin Anti-Xa Act, Unfractionated 0.25 IU/mL (0.30-0.70) Sodium Level 134 mmol/L (136-145) Potassium Level 3.7 mmol/L (3.5-5.1) Chloride Level 98 mmol/L (98-107) Carbon Dioxide Level 27 mmol/L (21-32) Anion Gap 9 (6-14) Blood Urea Nitrogen 22 mg/dL (7-20) Creatinine 1.6 mg/dL (0.6-1.0) Estimated GFR (Cockcroft-Gault) 31.8 Glucose Level 133 mg/dL (70-99) Calcium Level 8.2 mg/dL (8.5-10.1) Test 02/27/20 07:04 Glucose (Fingerstick) 141 mg/dL (70-99) Assessment and Plan Assessmemt and Plan Problems Medical Problems: (1) Chest pain Status: Acute (2) Elevated d-dimer Status: Acute (3) Suspected 2019 novel coronavirus infection Status: Acute Comment Review of Relevant I have reviewed the following items juliette (where applicable) has been applied. Labs Laboratory Tests Test 02/25/20 12:12 02/25/20 17:31 02/25/20 21:24 02/25/20 22:45 Glucose (Fingerstick) 243 mg/dL (70-99) 116 mg/dL (70-99) 65 mg/dL (70-99) 92 mg/dL (70-99) Test 02/26/20 05:18 02/26/20 07:45 02/26/20 10:47 02/26/20 16:20 Prothrombin Time 14.0 SEC (11.7-14.0) Prothromb Time International Ratio 1.1 (0.8-1.1) Heparin Anti-Xa Act, Unfractionated 0.40 IU/mL (0.30-0.70) Sodium Level 134 mmol/L (136-145) Potassium Level 3.7 mmol/L (3.5-5.1) Chloride Level 97 mmol/L (98-107) Carbon Dioxide Level 27 mmol/L (21-32) Anion Gap 10 (6-14) Blood Urea Nitrogen 20 mg/dL (7-20) Creatinine 1.4 mg/dL (0.6-1.0) Estimated GFR (Cockcroft-Gault) 37.1 Glucose Level 159 mg/dL (70-99) Calcium Level 8.4 mg/dL (8.5-10.1) Iron Level 8 ug/dL (50-170) Total Iron Binding Capacity 273 ug/dL (250-450) Iron Saturation 3 % (15-34) Glucose (Fingerstick) 167 mg/dL (70-99) 217 mg/dL (70-99) 190 mg/dL (70-99) Test 02/26/20 19:46 02/27/20 04:50 02/27/20 07:04 Glucose (Fingerstick) 196 mg/dL (70-99) 141 mg/dL (70-99) White Blood Count 13.5 x10^3/uL (4.0-11.0) Red Blood Count 3.77 x10^6/uL (3.50-5.40) Hemoglobin 8.6 g/dL (12.0-15.5) Hematocrit 27.1 % (36.0-47.0) Mean Corpuscular Volume 72 fL (79-100) Mean Corpuscular Hemoglobin 23 pg (25-35) Mean Corpuscular Hemoglobin Concent 32 g/dL (31-37) Red Cell Distribution Width 19.6 % (11.5-14.5) Platelet Count 233 x10^3/uL (140-400) Heparin Anti-Xa Act, Unfractionated 0.25 IU/mL (0.30-0.70) Sodium Level 134 mmol/L (136-145) Potassium Level 3.7 mmol/L (3.5-5.1) Chloride Level 98 mmol/L (98-107) Carbon Dioxide Level 27 mmol/L (21-32) Anion Gap 9 (6-14) Blood Urea Nitrogen 22 mg/dL (7-20) Creatinine 1.6 mg/dL (0.6-1.0) Estimated GFR (Cockcroft-Gault) 31.8 Glucose Level 133 mg/dL (70-99) Calcium Level 8.2 mg/dL (8.5-10.1) Laboratory Tests Test 02/26/20 10:47 02/26/20 16:20 02/26/20 19:46 02/27/20 04:50 Glucose (Fingerstick) 217 mg/dL (70-99) 190 mg/dL (70-99) 196 mg/dL (70-99) White Blood Count 13.5 x10^3/uL (4.0-11.0) Red Blood Count 3.77 x10^6/uL (3.50-5.40) Hemoglobin 8.6 g/dL (12.0-15.5) Hematocrit 27.1 % (36.0-47.0) Mean Corpuscular Volume 72 fL (79-100) Mean Corpuscular Hemoglobin 23 pg (25-35) Mean Corpuscular Hemoglobin Concent 32 g/dL (31-37) Red Cell Distribution Width 19.6 % (11.5-14.5) Platelet Count 233 x10^3/uL (140-400) Heparin Anti-Xa Act, Unfractionated 0.25 IU/mL (0.30-0.70) Sodium Level 134 mmol/L (136-145) Potassium Level 3.7 mmol/L (3.5-5.1) Chloride Level 98 mmol/L (98-107) Carbon Dioxide Level 27 mmol/L (21-32) Anion Gap 9 (6-14) Blood Urea Nitrogen 22 mg/dL (7-20) Creatinine 1.6 mg/dL (0.6-1.0) Estimated GFR (Cockcroft-Gault) 31.8 Glucose Level 133 mg/dL (70-99) Calcium Level 8.2 mg/dL (8.5-10.1) Test 02/27/20 07:04 Glucose (Fingerstick) 141 mg/dL (70-99) Medications Current Medications Aspirin (Brandee Aspirin) 325 mg 1X ONCE PO ; Start 02/22/20 at 22:30; Stop 02/22/20 at 22:26; Status DC Acetaminophen (Tylenol) 500 mg 1X ONCE PO Last administered on 02/22/20at 22:34; Start 02/22/20 at 23:00; Stop 02/22/20 at 23:01; Status DC Ondansetron HCl (Zofran) 4 mg PRN Q8HRS PRN IV NAUSEA/VOMITING 1ST CHOICE; Start 02/23/20 at 00:45; Stop 02/24/20 at 00:44; Status DC Insulin Human Lispro (HumaLOG) 0-5 UNITS TIDWMEALS SQ Last administered on 02/26/20at 12:31; Start 02/23/20 at 08:00 Dextrose (Dextrose 50%-Water Syringe) 12.5 gm PRN Q15MIN PRN IV SEE COMMENTS; Start 02/23/20 at 00:45 Magnesium Sulfate 50 ml @ 25 mls/hr 1X ONCE IV Last administered on 02/23/20at 09:38; Start 02/23/20 at 09:15; Stop 02/23/20 at 11:14; Status DC Acetaminophen (Tylenol) 650 mg PRN Q6HRS PRN PO MILD PAIN / TEMP > 100.3'F Last administered on 02/25/20 13:49; Start 02/23/20 at 12:45 Alprazolam (Xanax) 0.25 mg PRN BID PRN PO ANXIETY / AGITATION Last administered on 02/26/20 20:59; Start 02/23/20 at 12:45 Amiodarone HCl (Cordarone) 200 mg DAILY PO Last administered on 02/26/20 11:20; Start 02/23/20 at 14:00 Aspirin (Aspirin Chewable) 81 mg DAILY PO Last administered on 02/26/20 08:30; Start 02/23/20 at 14:00 Atorvastatin Calcium (Lipitor) 40 mg HS PO Last administered on 02/26/20 20:54; Start 02/23/20 at 21:00 Citalopram Hydrobromide (CeleXA) 20 mg DAILY08 PO Last administered on 02/26/20 08:31; Start 02/23/20 at 14:00 Docusate Sodium (Colace) 100 mg BID PO Last administered on 02/26/20 20:54; Start 02/23/20 at 14:00 Furosemide (Lasix) 20 mg BID92 PO Last administered on 02/25/20 13:50; Start 02/23/20 at 14:00; Stop 02/25/20 at 13:51; Status DC Gabapentin (Neurontin) 100 mg BID PO Last administered on 02/26/20 20:54; Start 02/23/20 at 14:00 Acetaminophen/ Hydrocodone Bitart (Lortab 7.5/325) 1 tab PRN Q4HRS PRN PO MODERATE PAIN Last administered on 02/26/20 20:54; Start 02/23/20 at 12:45 Levothyroxine Sodium (Synthroid) 100 mcg DAILY06 PO Last administered on 02/27/20 06:12; Start 02/23/20 at 14:00 Montelukast Sodium (Singulair) 10 mg HS PO Last administered on 02/26/20 20:54; Start 02/23/20 at 21:00 Pantoprazole Sodium (Protonix) 40 mg DAILYAC PO Last administered on 02/26/20 08:31; Start 02/23/20 at 16:30 Fenofibrate (Lofibra) 134 mg DAILY PO Last administered on 02/26/20 08:30; Start 02/23/20 at 14:00 Insulin Glargine (Lantus Syringe) 35 unit QHS SQ Last administered on 02/26/20at 21:03; Start 02/23/20 at 21:00 Sacubitril/ Valsartan (Entresto 49 Mg-51 Mg) 1 tab DAILY PO Last administered on 02/26/20at 08:30; Start 02/23/20 at 14:00 Heparin Sodium (Porcine) (Heparin Sodium) 4,000 unit 1X ONCE IV Last administered on 02/23/20at 15:05; Start 02/23/20 at 14:30; Stop 02/23/20 at 14:31; Status DC Heparin Sodium/ Dextrose 250 ml @ 0 mls/hr CONT PRN IV PER PROTOCOL Last administered on 02/24/20at 04:34; Start 02/23/20 at 14:30; Stop 02/24/20 at 12:46; Status DC Heparin Sodium (Porcine) (Heparin Sodium) 2,750 unit PRN Q6HRS PRN IV FOR UFH LEVEL LESS THAN 0.2 Last administered on 02/23/20at 22:28; Start 02/23/20 at 14:30; Stop 02/24/20 at 12:46; Status DC Heparin Sodium (Porcine) (Heparin Sodium) 1,350 unit PRN Q6HRS PRN IV FOR UFH LEVEL 0.2 - 0.29; Start 02/23/20 at 14:30; Stop 02/24/20 at 12:46; Status DC Insulin Human Lispro (HumaLOG) 10 units 1X ONCE SQ Last administered on 02/23/20at 16:46; Start 02/23/20 at 16:45; Stop 02/23/20 at 16:46; Status DC Isosorbide Mononitrate (Imdur) 30 mg DAILY PO Last administered on 02/26/20at 08:29; Start 02/24/20 at 09:00 Info (Anti-Coagulation Monitoring By Pharmacy) 1 each PRN DAILY PRN MC SEE COMMENTS Last administered on 02/26/20at 12:38; Start 02/24/20 at 12:15 Insulin Human Regular (HumuLIN R VIAL) 35 unit TID SQ ; Start 02/24/20 at 14:00; Stop 02/24/20 at 12:23; Status DC Insulin Human Lispro (HumaLOG) 35 units TIDWMEALS SQ Last administered on 02/26/20at 18:14; Start 02/24/20 at 13:00 Apixaban (Eliquis) 10 mg BID PO ; Start 02/24/20 at 13:00; Stop 03/01/20 at 21:01; Status Cancel Apixaban (Eliquis) 5 mg BID PO ; Start 03/02/20 at 09:00; Status Cancel Warfarin Sodium (Coumadin Per Pharmacy) 1 each PRN DAILY PRN MC SEE COMMENTS Last administered on 02/26/20at 12:41; Start 02/24/20 at 13:15 Warfarin Sodium (Coumadin) 5 mg 1X WARF ONCE PO Last administered on 02/24/20at 15:03; Start 02/24/20 at 16:00; Stop 02/24/20 at 16:01; Status DC Heparin Sodium/ Dextrose 250 ml @ 0 mls/hr CONT PRN IV PER PROTOCOL Last a dministered on 02/27/20at 00:06; Start 02/24/20 at 13:45 Heparin Sodium (Porcine) (Heparin Sodium) 2,750 unit PRN Q6HRS PRN IV FOR UFH LEVEL LESS THAN 0.2 Last administered on 02/24/20at 16:34; Start 02/24/20 at 13:45 Heparin Sodium (Porcine) (Heparin Sodium) 1,350 unit PRN Q6HRS PRN IV FOR UFH LEVEL 0.2 - 0.29 Last administered on 02/27/20at 06:09; Start 02/24/20 at 13:45 Furosemide (Lasix) 40 mg BID92 PO Last administered on 02/26/20at 15:47; Start 02/25/20 at 14:00 Warfarin Sodium (Coumadin) 5 mg 1X WARF ONCE PO Last administered on 02/25/20at 17:14; Start 02/25/20 at 16:00; Stop 02/25/20 at 16:01; Status DC Piperacillin Sod/ Tazobactam Sod 4.5 gm/Sodium Chloride 100 ml @ 200 mls/hr 1X ONCE IV Last administered on 02/26/20at 12:34; Start 02/26/20 at 12:00; Stop 02/26/20 at 12:29; Status DC Piperacillin Sod/ Tazobactam Sod (Zosyn Per Pharmacy) 1 each PRN DAILY PRN MC SEE COMMENTS; Start 02/26/20 at 11:30 Iron Sucrose 200 mg/Sodium Chloride 110 ml @ 55 mls/hr 1X ONCE IV ; Start 02/26/20 at 12:00; Stop 02/26/20 at 15:27; Status DC Piperacillin Sod/ Tazobactam Sod 4.5 gm/Sodium Chloride 100 ml @ 200 mls/hr Q6HRS IV Last administered on 02/27/20at 06:11; Start 02/26/20 at 18:00 Warfarin Sodium (Coumadin) 7.5 mg 1X WARF ONCE PO Last administered on 02/02 01/20at 15:48; Start 02/26/20 at 16:00; Stop 02/26/20 at 16:01; Status DC Ferrous Sulfate (Feosol) 325 mg TIDWMEALHC PO Last administered on 02/26/20at 20:54; Start 02/26/20 at 17:00 Ascorbic Acid (Vitamin C) 500 mg DAILY PO ; Start 02/27/20 at 09:00 Active Scripts Active Colace (Docusate Sodium) 100 Mg Capsule 1 Cap PO BID 30 Days Alprazolam 0.25 Mg Tablet 1 Tab PO BID PRN Reported Entresto 97 mg-103 mg Tablet (Sacubitril/Valsartan) 1 Each Tablet 0.5 Each PO DAILY Aspirin 81 Mg Tab.chew 81 Mg PO DAILY Citalopram Hbr (Citalopram Hydrobromide) 20 Mg Tablet 1 Tab PO DAILY08 Hydrocodone-Apap 7.5-325 (Hydrocodone Bit/Acetaminophen) 1 Tab Tablet 1 Tab PO Q4HRS PRN Furosemide 20 Mg Tablet 20 Mg PO BID Amiodarone Hcl 200 Mg Tablet 1 Tab PO DAILY Montelukast Sodium Tablet (Montelukast Sodium) 10 Mg Tablet 10 Mg PO HS Levothyroxine Sodium 100 Mcg Tablet 1 Tab PO DAILY Proair Hfa Inhaler (Albuterol Sulfate) 8.5 Gm Hfa.aer.ad 2 Puff IH PRN Q4-6HRS Tylenol (Acetaminophen) 325 Mg Tablet 650 Mg PO Fenofibrate (Fenofibrate Nanocrystallized) 145 Mg Tablet 1 Tab PO DAILY Humalog (Insulin Lispro) 100 Unit/1 Ml Vial 35 Unit SQ TID Lantus Solostar (Insulin Glargine,Hum.rec.anlog) 100 Unit/1 Ml Insuln.pen 35 Unit SQ HS Pantoprazole Sodium (Pantoprazole Sodium) 40 Mg Tablet.dr 40 Mg PO DAILY Atorvastatin Calcium 40 Mg Tablet 40 Mg PO HS Gabapentin (Gabapentin) 100 Mg Capsule 100 Mg PO BID Vitals/I & O Vital Sign - Last 24 Hours 02/26/20 02/26/20 02/26/20 02/26/20 09:30 11:00 11:20 15:00 Temp 98.3 97.6 98.3 97.6 Pulse 88 91 95 Resp 18 18 18 B/P (MAP) 88/45 (59) 115/57 139/49 (79) Pulse Ox 95 97 97 O2 Delivery Nasal Cannula Nasal Cannula Nasal Cannula O2 Flow Rate 3.0 3.0 3.0 02/26/20 02/26/20 02/26/20 02/26/20 15:51 16:51 19:00 19:55 Temp 98.6 98.6 Pulse 97 Resp 18 B/P (MAP) 100/47 (64) Pulse Ox 97 97 97 O2 Delivery Nasal Cannula Nasal Cannula Nasal Cannula Nasal Cannula O2 Flow Rate 3.0 3.0 3.0 3.0 02/26/20 02/26/20 02/26/20 02/27/20 20:54 21:54 23:00 03:04 Temp 98.4 98.7 98.4 98.7 Pulse 92 91 Resp 22 18 18 B/P (MAP) 114/55 (74) 114/51 (72) Pulse Ox 95 96 O2 Delivery Nasal Cannula Nasal Cannula Nasal Cannula Nasal Cannula O2 Flow Rate 3.0 3.0 02/27/20 07:00 Temp 98.8 98.8 Pulse 100 Resp 18 B/P (MAP) 122/56 (78) Pulse Ox 95 O2 Delivery Nasal Cannula O2 Flow Rate 3.0 Intake and Output 02/26/20 02/26/20 02/27/20 15:00 23:00 07:00 Intake Total 180 ml 383 ml 450 ml Output Total 650 ml Balance 180 ml 383 ml -200 ml GINA PATEL MD Feb 27, 2020 08:39
[2020-02-27] MEDS: AMIODARONE HCL 200 MG TABLET. PO SCH (09:01)
[2020-02-27] MEDS: FUROSEMIDE 40 MG TABLET. PO SCH ×2 (09:01→15:26)
[2020-02-27] MEDS: ASPIRIN CHEWABLE 81 MG TABLET. PO SCH (09:02)
[2020-02-27] MEDS: FENOFIBRATE,MICRONIZED 134 MG CAPSULE PO SCH (09:02)
[2020-02-27] MEDS: DOCUSATE SODIUM 100 MG CAPSULE. PO SCH ×2 (09:02→20:55)
[2020-02-27] MEDS: FERROUS SULFATE 325 MG TABLET. PO SCH ×4 (09:02→20:55)
[2020-02-27] MEDS: PANTOPRAZOLE 40 MG TABLET.DR. PO SCH ×2 (09:02→18:13)
[2020-02-27] MEDS: ASCORBIC ACID 500 MG TABLET PO SCH (09:02)
[2020-02-27] MEDS: CITALOPRAM 20 MG TABLET. PO SCH (09:02)
[2020-02-27] MEDS: GABAPENTIN 100 MG CAPSULE. PO SCH ×2 (09:02→20:55)
[2020-02-27] MEDS: SACUBITRIL/VALSARTAN 49/51MG TABLET. PO SCH (09:02)
[2020-02-27] MEDS: ISOSORBIDE MONONITRATE ER 30 MG TAB.ER.24H PO SCH (09:02)
--- NOTE | 2020-02-27 09:35 | PDOC ---
PULMONARY PROGRESS NOTES Subjective Less short of breath no chest pain Vitals Vital Signs Date Time Temp Pulse Resp B/P (MAP) Pulse Ox O2 Delivery O2 Flow Rate FiO2 02/27/20 09:02 100 122/56 02/27/20 07:00 98.8 18 95 Nasal Cannula 3.0 98.8 ROS: No Nausea, No Chest Pain, No Abdominal Pain General: Alert, No acute distress Lungs: Other (decrease bs) Cardiovascular: S1, S2 Abdomen: Soft, Other (obese) Extremities: Other (1+edema) Skin: Warm Labs Laboratory Tests Test 02/25/20 12:12 02/25/20 17:31 02/25/20 21:24 02/25/20 22:45 Glucose (Fingerstick) 243 mg/dL (70-99) 116 mg/dL (70-99) 65 mg/dL (70-99) 92 mg/dL (70-99) Test 02/26/20 05:18 02/26/20 07:45 02/26/20 10:47 02/26/20 16:20 Prothrombin Time 14.0 SEC (11.7-14.0) Prothromb Time International Ratio 1.1 (0.8-1.1) Heparin Anti-Xa Act, Unfractionated 0.40 IU/mL (0.30-0.70) Sodium Level 134 mmol/L (136-145) Potassium Level 3.7 mmol/L (3.5-5.1) Chloride Level 97 mmol/L (98-107) Carbon Dioxide Level 27 mmol/L (21-32) Anion Gap 10 (6-14) Blood Urea Nitrogen 20 mg/dL (7-20) Creatinine 1.4 mg/dL (0.6-1.0) Estimated GFR (Cockcroft-Gault) 37.1 Glucose Level 159 mg/dL (70-99) Calcium Level 8.4 mg/dL (8.5-10.1) Iron Level 8 ug/dL (50-170) Total Iron Binding Capacity 273 ug/dL (250-450) Iron Saturation 3 % (15-34) Glucose (Fingerstick) 167 mg/dL (70-99) 217 mg/dL (70-99) 190 mg/dL (70-99) Test 02/26/20 19:46 02/27/20 04:50 02/27/20 07:04 Glucose (Fingerstick) 196 mg/dL (70-99) 141 mg/dL (70-99) White Blood Count 13.5 x10^3/uL (4.0-11.0) Red Blood Count 3.77 x10^6/uL (3.50-5.40) Hemoglobin 8.6 g/dL (12.0-15.5) Hematocrit 27.1 % (36.0-47.0) Mean Corpuscular Volume 72 fL (79-100) Mean Corpuscular Hemoglobin 23 pg (25-35) Mean Corpuscular Hemoglobin Concent 32 g/dL (31-37) Red Cell Distribution Width 19.6 % (11.5-14.5) Platelet Count 233 x10^3/uL (140-400) Heparin Anti-Xa Act, Unfractionated 0.25 IU/mL (0.30-0.70) Sodium Level 134 mmol/L (136-145) Potassium Level 3.7 mmol/L (3.5-5.1) Chloride Level 98 mmol/L (98-107) Carbon Dioxide Level 27 mmol/L (21-32) Anion Gap 9 (6-14) Blood Urea Nitrogen 22 mg/dL (7-20) Creatinine 1.6 mg/dL (0.6-1.0) Estimated GFR (Cockcroft-Gault) 31.8 Glucose Level 133 mg/dL (70-99) Calcium Level 8.2 mg/dL (8.5-10.1) Laboratory Tests Test 02/26/20 10:47 02/26/20 16:20 02/26/20 19:46 02/27/20 04:50 Glucose (Fingerstick) 217 mg/dL (70-99) 190 mg/dL (70-99) 196 mg/dL (70-99) White Blood Count 13.5 x10^3/uL (4.0-11.0) Red Blood Count 3.77 x10^6/uL (3.50-5.40) Hemoglobin 8.6 g/dL (12.0-15.5) Hematocrit 27.1 % (36.0-47.0) Mean Corpuscular Volume 72 fL (79-100) Mean Corpuscular Hemoglobin 23 pg (25-35) Mean Corpuscular Hemoglobin Concent 32 g/dL (31-37) Red Cell Distribution Width 19.6 % (11.5-14.5) Platelet Count 233 x10^3/uL (140-400) Heparin Anti-Xa Act, Unfractionated 0.25 IU/mL (0.30-0.70) Sodium Level 134 mmol/L (136-145) Potassium Level 3.7 mmol/L (3.5-5.1) Chloride Level 98 mmol/L (98-107) Carbon Dioxide Level 27 mmol/L (21-32) Anion Gap 9 (6-14) Blood Urea Nitrogen 22 mg/dL (7-20) Creatinine 1.6 mg/dL (0.6-1.0) Estimated GFR (Cockcroft-Gault) 31.8 Glucose Level 133 mg/dL (70-99) Calcium Level 8.2 mg/dL (8.5-10.1) Test 02/27/20 07:04 Glucose (Fingerstick) 141 mg/dL (70-99) Medications Active Scripts Medications Dose Route/Sig Max Daily Dose Days Date Category Entresto 97 mg-103 mg Tablet (Sacubitril/Valsartan) 1 Each Tablet 0.5 Each PO DAILY 02/18/20 Reported Aspirin 81 Mg Tab.chew 81 Mg PO DAILY 02/18/20 Reported Citalopram Hbr (Citalopram Hydrobromide) 20 Mg Tablet 1 Tab PO DAILY08 12/23/19 Reported Hydrocodone-Apap 7.5-325 (Hydrocodone Bit/Acetaminophen) 1 Tab Tablet 1 Tab PO Q4HRS PRN 12/23/19 Reported Furosemide 20 Mg Tablet 20 Mg PO BID 12/23/19 Reported Amiodarone Hcl 200 Mg Tablet 1 Tab PO DAILY 12/23/19 Reported Colace (Docusate Sodium) 100 Mg Capsule 1 Cap PO BID 30 10/14/19 Rx Alprazolam 0.25 Mg Tablet 1 Tab PO BID PRN 10/02/19 Rx Montelukast Sodium Tablet (Montelukast Sodium) 10 Mg Tablet 10 Mg PO HS 11/30/17 Reported Levothyroxine Sodium 100 Mcg Tablet 1 Tab PO DAILY 05/26/16 Reported Proair Hfa Inhaler (Albuterol Sulfate) 8.5 Gm Hfa.aer.ad 2 Puff IH PRN Q4-6HRS 05/20/15 Reported Tylenol (Acetaminophen) 325 Mg Tablet 650 Mg PO 05/14/15 Reported Fenofibrate (Fenofibrate Nanocrystallized) 145 Mg Tablet 1 Tab PO DAILY 05/14/15 Reported Humalog (Insulin Lispro) 100 Unit/1 Ml Vial 35 Unit SQ TID 04/08/14 Reported Lantus Solostar (Insulin Glargine,Hum.rec.anlog) 100 Unit/1 Ml Insuln.pen 35 Unit SQ HS 04/08/14 Reported Pantoprazole Sodium (Pantoprazole Sodium) 40 Mg Tablet.dr 40 Mg PO DAILY 04/08/14 Reported Atorvastatin Calcium 40 Mg Tablet 40 Mg PO HS 04/08/14 Reported Gabapentin (Gabapentin) 100 Mg Capsule 100 Mg PO BID 04/08/14 Reported Impression . 1. Acute hypoxemic respiratory 2. No significant tobacco history. 3. Cardiomyopathy with an ejection fraction of 20%-25% with possible mild congestive heart failure. She has severe global hypokinesis. She is status post stents. 4. 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 5. History of breast cancer with prior left mastectomy. 6. Abnormal CXR with possible faint mild interstitial infiltrates 7. CT no evidence of pulmonary embolus 8. CT with bilateral infiltrates left upper lobe right lower lobe, suspect infectious process, not typical of amiodarone induced lung injury 9. Bilateral pleural effusion Plan . Feels better continue current support Antibiotics Continue amiodarone for now, discussed with cardiology Continue anticoagulation Oxygen supplementation Repeat CT in 8 weeks Obtain speech evaluation Pleural fluid too small to warrant thoracentesis KIRT AGUILLON MD Feb 27, 2020 09:35
--- NOTE | 2020-02-27 10:47 | PDOC ---
Renal-Progress Notes Subjective Notes Notes NO NEW COMPLAINTS History of Present Illness Hx of present illness STABLE Vitals Vitals Vital Signs Date Time Temp Pulse Resp B/P (MAP) Pulse Ox O2 Delivery O2 Flow Rate FiO2 02/27/20 09:02 100 122/56 02/27/20 07:00 98.8 18 95 Nasal Cannula 3.0 98.8 Weight Weight [ ] I.O. Intake and Output Intake and Output 02/27/20 07:00 Intake Total 1013 ml Output Total 650 ml Balance 363 ml Intake Oral 350 ml IV Total 450 ml Blood Product IV Normal Saline Flush 213 ml Output Urine Total 650 ml # Voids 1 Labs Labs Laboratory Tests Test 02/26/20 10:47 02/26/20 16:20 02/26/20 19:46 02/27/20 04:50 Glucose (Fingerstick) 217 mg/dL (70-99) 190 mg/dL (70-99) 196 mg/dL (70-99) White Blood Count 13.5 x10^3/uL (4.0-11.0) Red Blood Count 3.77 x10^6/uL (3.50-5.40) Hemoglobin 8.6 g/dL (12.0-15.5) Hematocrit 27.1 % (36.0-47.0) Mean Corpuscular Volume 72 fL (79-100) Mean Corpuscular Hemoglobin 23 pg (25-35) Mean Corpuscular Hemoglobin Concent 32 g/dL (31-37) Red Cell Distribution Width 19.6 % (11.5-14.5) Platelet Count 233 x10^3/uL (140-400) Heparin Anti-Xa Act, Unfractionated 0.25 IU/mL (0.30-0.70) Sodium Level 134 mmol/L (136-145) Potassium Level 3.7 mmol/L (3.5-5.1) Chloride Level 98 mmol/L (98-107) Carbon Dioxide Level 27 mmol/L (21-32) Anion Gap 9 (6-14) Blood Urea Nitrogen 22 mg/dL (7-20) Creatinine 1.6 mg/dL (0.6-1.0) Estimated GFR (Cockcroft-Gault) 31.8 Glucose Level 133 mg/dL (70-99) Calcium Level 8.2 mg/dL (8.5-10.1) Test 02/27/20 07:04 Glucose (Fingerstick) 141 mg/dL (70-99) Review of Systems Constitutional: yes: weakness, alert, oriented Ears/Nose/Throat: Yes: no symptom reported Eyes: Yes: no symptom reported Pulmonary: Yes dyspnea Cardiovascular: Yes no symptom reported Gastrointestional: Yes: constipation Genitourinary: Yes: no symptom reported Musculoskeletal: Yes: no symptom reported Skin: Yes no symptom reported Psychiatric/Neurological: Yes: no symptom reported Endocrine: Yes: no symptom reported Physical Exam General Appearance: no apparent distress Skin: warm Respiratory: decreased breath sounds Heart: S1S2 Abdomen: soft, bowel sounds present Genitourinary: bladder flat Neurology: alert, oriented, follow commands Assessment Assessment IMP CKD STAGE 3-CR AT BASELINE OF 1.8-2.0 HYPONATREMIA-MILD AND STABLE HX OF HTN HX OF DM II DYSPNEA-ACUTE HYPOXIC RESP FAILURE RECURRENT PULMONARY EMBOLI CM WITH EF OF 20-25% CAD WITH HX OF STENTS IRON DEFICIENCY PLAN HER RENAL FXN IS STABLE CONT ANTICOAGULATION MAXIMIZE TX FOR CM AFTER LOAD REDUCTION WITH ENTRESTO AND LASIX CONT LASIX CONSIDER IV IRON WILL FOLLOW COMPA GALLAGHER MD Feb 27, 2020 10:46
--- NOTE | 2020-02-27 10:48 | PDOC ---
[facility] [employer]ER 02/27/20 1048: CARDIO Progress Notes Date and Time Date of Service 02/27/2020 Time of Evaluation 1045 Subjective Subjective: No Chest Pain, No shortness of breath, No Palpitations Vitals Vitals Vital Signs Date Time Temp Pulse Resp B/P (MAP) Pulse Ox O2 Delivery O2 Flow Rate FiO2 02/27/20 09:02 100 122/56 02/27/20 07:00 98.8 18 95 Nasal Cannula 3.0 98.8 Weight Weight [ ] Input and Output Intake and Output Intake and Output 02/27/20 07:00 Intake Total 1013 ml Output Total 650 ml Balance 363 ml Intake Oral 350 ml IV Total 450 ml Blood Product IV Normal Saline Flush 213 ml Output Urine Total 650 ml # Voids 1 Laboratory Labs Laboratory Tests Test 02/26/20 10:47 02/26/20 16:20 02/26/20 19:46 02/27/20 04:50 Glucose (Fingerstick) 217 mg/dL (70-99) 190 mg/dL (70-99) 196 mg/dL (70-99) White Blood Count 13.5 x10^3/uL (4.0-11.0) Red Blood Count 3.77 x10^6/uL (3.50-5.40) Hemoglobin 8.6 g/dL (12.0-15.5) Hematocrit 27.1 % (36.0-47.0) Mean Corpuscular Volume 72 fL (79-100) Mean Corpuscular Hemoglobin 23 pg (25-35) Mean Corpuscular Hemoglobin Concent 32 g/dL (31-37) Red Cell Distribution Width 19.6 % (11.5-14.5) Platelet Count 233 x10^3/uL (140-400) Heparin Anti-Xa Act, Unfractionated 0.25 IU/mL (0.30-0.70) Sodium Level 134 mmol/L (136-145) Potassium Level 3.7 mmol/L (3.5-5.1) Chloride Level 98 mmol/L (98-107) Carbon Dioxide Level 27 mmol/L (21-32) Anion Gap 9 (6-14) Blood Urea Nitrogen 22 mg/dL (7-20) Creatinine 1.6 mg/dL (0.6-1.0) Estimated GFR (Cockcroft-Gault) 31.8 Glucose Level 133 mg/dL (70-99) Calcium Level 8.2 mg/dL (8.5-10.1) Test 02/27/20 07:04 Glucose (Fingerstick) 141 mg/dL (70-99) Review of Systems Constitutional: yes: weakness, alert, oriented Ears/Nose/Throat: Yes: no symptom reported Eyes: Yes: no symptom reported Pulmonary: Yes dyspnea Cardiovascular: Yes no symptom reported Gastrointestional: Yes: constipation Genitourinary: Yes: no symptom reported Musculoskeletal: Yes: no symptom reported Skin: Yes no symptom reported Psychiatric/Neurological: Yes: no symptom reported Endocrine: Yes: no symptom reported Physical Exam HEENT: Neck Supple W Full Motion Chest: Symmetric LUNGS: Other (diminished bases) Heart: S1S2, RRR (SR) Abdomen: Soft N/T, Other (obese ) Extremities: No Edema Neurology: alert, oriented, follow commands Assessment Assessment 1. Atypical CP: none further possibly pleuritic 2. CAD: recent LHC with patent stents. Clinically stable 3. Acute respiratory failure with possible recurrent PE. VQ with intermediated probability for PE. 4. Acute on chronic systolic CHF with severe ICM/NICM: EF at 20-25%. appears compensated 5. H/o VT with ICD discharge. On Amiodarone for rhythm maintenance No ILD ok per pulmonary 6. DM2/HLP: Continue current treatment 7. PAD: s/p percutaneous revascularization. stable, no claudications 8. CKD; Cr up to 1.6, nephrology following 9. HTN: controlled 10. H/o PE s/p IVC filter. This was removed 02/18/20 and OAC was discontinued 11. Arrhythmia: periods of PSVT and aberrant conduction 12. s/p AICD ([facility] A) Recommendations HF optimization with Entresto, Lasix therapy Monitor renal function with 40mg BID Secondary prevention measures OAC therapy On heparin.for bridging Warfarin initiated. Per pulmonary Continue Amiodarone therapy for VT suppression Supportive care Justicifation of Admission Dx: Justifications for Admission: Justification of Admission Dx: Yes DAVONTE MUHAMMAD MD 02/27/20 1710: CARDIO Progress Notes Plan Plan Patient seen and examined. Agree with above nurse practitioner note. Supportive care. Continue diuresis as tolerated. [facility] Feb 27, 2020 10:48 DAVONTE MUHAMMAD MD Feb 27, 2020 17:10
[2020-02-27 10:52] VITALS: BP 98/51
--- NOTE | 2020-02-27 12:10 | NUR ---
SS following up with discharge planning. SS reviewed pt chart and discussed with pt RN. Pt INR 1.1. Pt on heparin drip. Pt not medically stable for discharge at this time. SS will continue to follow for discharge planning.
[2020-02-27] MEDS ORDERED: BARIUM SULFATE 40% (APPLE) 148 GM PWD. PO ONE (12:30)
[2020-02-27 13:00] LABS: PROTHROMBIN TIME PATIENT 17.3 SEC (11.7-14.0)
[2020-02-27] MEDS ORDERED: BARIUM SULFATE 340 GM SUSPENSION. PO ONE (13:00)
[2020-02-27] MEDS ORDERED: BARIUM SULFATE 60% 355 ML SUSP PO ONE (13:00)
[2020-02-27] MEDS ORDERED: SIMETHICONE/SOD BICARB/CITRIC ACID PACKET. PO ONE (13:00)
--- NOTE | 2020-02-27 13:12 | NUR ---
Pharmacy Warfarin Dosing Note S:Pharmacy consulted to assist with anticoagulation therapy started 02/24/20 with target INR: 2 -3 O:VALENTINO SINGH is a 69 year old F with DVT/PE LABS: Last INR: 1.5 Last HGB: 8.6 Last HCT: 27.1 Last PLT: 233 Last dose of 7.5 mg given on 02/26/20 at 1548 Vitamin K given: N Drug Interaction Changes: Same Interacting Drug Ongoing Drug Interactions: amiodarone, citalopram, fenofibrate A:INR of 1.5 is below desired range. Target range for this patient is: 2 -3 P: Warfarin dose: 7.5 mg Today at 1600 Bridge Therapy: Heparin Therapeutic Next INR due 02/28/20 Pharmacy anticoagulation service will continue to follow. ART BARNARD RPH, 02/27/20 [id number]
--- NOTE | 2020-02-27 14:36 | RAD ---
EXAM: Chest, single view. HISTORY: Congestive heart failure. COMPARISON: CT dated 02/25/2020. FINDINGS: A frontal view of the chest is obtained. There is partially consolidated left upper and right lower lobe infiltrate. There is a small left pleural effusion with basilar atelectasis or infiltrate. There is a prominent cardiac silhouette. There is a cardiac pacemaker defibrillator overlying expected position. There is no pneumothorax. IMPRESSION: Stable multifocal infiltrate and small left pleural effusion, better characterized on the CT performed 02/25/2020. Electronically signed by: Lise Sears MD (02/27/2020 2:33 PM) [id number]
[2020-02-27 14:37] VITALS: BP 112/56
[2020-02-27] MEDS: HYDROcodone/APAP 7.5/325MG 1 TAB TABLET PO PRN ×2 (15:27→20:55)
[2020-02-27] MEDS ORDERED: WARFARIN 7.5 MG TABLET. PO ONE (16:00)
--- NOTE | 2020-02-27 17:44 | RAD ---
PROCEDURE: VIDEO SWALLOW STUDY STUDY DATE: 02/27/2020 CLINICAL INDICATION / HISTORY: Reason: dysphagia, 2.2 MIN FT / Spl. Instructions: / History: . TECHNIQUE: Real-time fluoroscopic imaging examination was performed in conjunction with speech therapy. The patient was administered barium labeled thin liquids, nectar, honey, pudding, and solid consistency compounds. FLUOROSCOPY TIME: 2.2 minutes. Number of Images: 0 COMPARISON: Chest x-ray of 02/27/2020 FINDINGS: The patient exhibited normal oral control. Intermittent flash penetration with thin liquids was observed. Otherwise no penetration was observed with thin liquids, nectar, and honey consistency compounds. No aspiration was observed. The patient tolerated solid barium label compounds. IMPRESSION: Normal video swallow study. Please refer to speech pathology notes for complete details and recommendations. PROCEDURE: ESOPHAGRAM/BARIUM SWALLOW STUDY DATE: 02/27/2020 FLUOROSCOPY TIME: 1.6 minutes. Number of Images: 7 CLINICAL INDICATION / HISTORY: Reason: dysphagia, 2.2 MIN FT / Spl. Instructions: / History: . TECHNIQUE: Multiple fluoroscopic images of the thoracic esophagus were obtained with the patient in the supine oblique position as she was unable to stand. An additional image in the supine PA view projection was obtained. COMPARISON: Chest x-ray of 02/27/2020 and 02/22/2020 FINDINGS: Esophagram study was performed which showed mild esophageal patulousness but otherwise normal anatomy and appearance of the esophagus and gastroesophageal junction. No evidence of gastroesophageal reflux or hiatal hernia. There were multiple tertiary contractions. Residual barium in the thoracic esophagus despite multiple attempts at clearance with dry swallows. IMPRESSION: Findings compatible with presbyesophagus. Electronically signed by: Mariposa Ann MD (02/27/2020 5:42 PM) [id number]
[2020-02-27 19:00] VITALS: BP 111/56
[2020-02-27] MEDS: MONTELUKAST SODIUM 10 MG TABLET. PO SCH (20:55)
[2020-02-27] MEDS: LACTOBACILLUS RHAMNOSUS GG 1 CAPSULE. PO SCH (20:55)
[2020-02-27] MEDS: ATORVASTATIN CALCIUM 40 MG TABLET. PO SCH (20:55)
[2020-02-27] MEDS: INSULIN GLARGINE SYRINGE. SQ SCH (21:01)
[2020-02-27 23:00] VITALS: BP 125/58
[2020-02-28] MEDS: PIPERACILLIN/TAZOBACTAM 4.5 GM in IV NORMAL SALINE 100ML 100 ML IV SCH ×2 (00:28→06:18)
[2020-02-28] MEDS: HEPARIN 25,000UTS/250ML PREMIX 250 ML IV PRN ×2 (01:27→15:18)
[2020-02-28 03:00] VITALS: BP 108/54
[2020-02-28 05:47] LABS: CALCIUM 8.1 mg/dL (8.5-10.1); CREATININE 1.6 mg/dL (0.6-1.0); GFR 31.8; POTASSIUM 3.3 mmol/L (3.5-5.1)
[2020-02-28] MEDS: LEVOTHYROXINE 100 MCG TABLET PO SCH (06:19)
[2020-02-28] MEDS: PANTOPRAZOLE 40 MG TABLET.DR. PO SCH ×2 (06:19→16:44)
[2020-02-28 07:00] VITALS: BP 118/55
--- NOTE | 2020-02-28 07:14 | NUR ---
Pharmacy Warfarin Dosing Note S:Pharmacy consulted to assist with anticoagulation therapy started 02/24/20 with target INR: 2 -3 O:VALENTINO SINGH is a 69 year old F with DVT/PE LABS: Last INR: 1.7 Last HGB: 8.6 Last HCT: 27.1 Last PLT: 233 Last dose of 7.5 mg given on 02/27/20 at 1813 Vitamin K given: N Drug Interaction Changes: Same Interacting Drug Ongoing Drug Interactions: amiodarone, citalopram, fenofibrate A:INR of 1.7 is below desired range. Target range for this patient is: 2 -3 P: Warfarin dose: 7.5 mg Today at 1600 Bridge Therapy: Heparin Therapeutic Next INR due 02/29/20 Pharmacy anticoagulation service will continue to follow. ART BARNARD RPH, 02/28/20 0714
[2020-02-28] MEDS: INSULIN LISPRO 300 UNITS/3 ML VIAL. SQ SCH ×6 (08:00→17:30)
--- NOTE | 2020-02-28 08:17 | PDOC ---
PROGRESS NOTES Chief Complaint Chief Complaint A/P: Acute Hypoxic Resp Failure secondary to recurrent PE Chest pain; atypical. AMI ruled out. Acute respiratory failure with possible PE. Severe ICM/NICM: H/o VT with ICD discharge. DM2 HLD CADs/p PCI/LAD PAD: s/p percutaneous revascularization. CKD HTN H/o PE s/p IVC filter. Hypomagnesemia History of breast cancer with prior left mastectomy. Abnormal CXR with possible faint mild interstitial infiltrates rule out covid 19 PLAN full dose AC for now VQ with intermediated probability for PE Cardiac catheterization 10/2018 showed patent LAD stent and 80% stenosis in small-caliber diagonal branch, which was noted in prior cardiac catheterization and is being medically managed. EF at 20-25%. s/p AICD ([facility] [facility] A). Device check. On Entresto On Amiodarone for rhythm maintenance IVF filter removed 02/18/20. Has been off OAC Replace Mg Add imdur per cards continue lasix continue 02 apprec pulm and cards input dvt ppx: full dose ac History of Present Illness History of Present Illness Ms Rodriguez is a 69 yo obese patient with a BMI of 35. She has no significant tobacco history. She has cardiomyopathy with an EF of 20%-25%. She also has history of pulmonary embolism, which was in 2019. She was taken off her anticoagulation after her V/Q scan did not reveal any persistent pulmonary embolism. She also had an IVC filter, which the Hematology recommended to be removed. The patient's Dopplers were negative and followup V/Q scan was negative for PE. The patient underwent a removal of IVC filter on the 02/17. Returned to ED with shortness of breath. VQ scan consistent with right lower lobe mismatch, started on heparin and warfarin. 02/24: She is feeling wiped out, short of breath. No CP currently, still on 5L NCO2 currently. Afebrile. CT chest. Bilateral consolidative lung infiltrates which may represent pneumonia or aspiration pneumonitis. Moderate size left-sided pleural effusion and associated compressive atelectasis of the left lower lobe. Small right-sided pleural effusion. Right paratracheal lymphadenopathy which may be reactive in nature. Mild cardiomegaly. Calcified atheromatous disease of the coronary arteries. 35 mm fluid collection within the gallbladder fossa. Cholecystectomy clips are apparent. 02/25: She is still feeling poorly, weak. Iron 8. Cr down to 1.4. Afebrile. Based on CT results, starting antibiotics and iron today, lasix IV per cardiology. INR is 1, will need to adjust warfarin and ask [employer] evaluate based on left upper lobe and right lower lobe and aspiration may be occurring. 02/26: INR 1.5. Cr 1.6. She doesn't feel much better, still with cough. Started on zosyn. Esophogram today. K 3.3, Cr 1.6, INR 1.7. Mag 1.8. Noted on esophagram with no reflux. Her cough is more productive today. She feels a little bit stronger. Back on home O2 3 L nasal cannula. Vitals Vitals Vital Signs Date Time Temp Pulse Resp B/P (MAP) Pulse Ox O2 Delivery O2 Flow Rate FiO2 02/28/20 03:00 97.5 89 20 108/54 (72) 100 Nasal Cannula 3.0 97.5 Physical Exam General: Alert, Oriented X3, Cooperative, No acute distress Heart: Regular rate Lungs: Other (decrease bs) Abdomen: Normal bowel sounds, Soft, No tenderness Extremities: No cyanosis Skin: No breakdown Labs LABS Laboratory Tests Test 02/27/20 11:24 02/27/20 12:35 02/27/20 16:18 02/27/20 19:30 Glucose (Fingerstick) 235 mg/dL (70-99) 182 mg/dL (70-99) Prothrombin Time 17.3 SEC (11.7-14.0) Prothromb Time International Ratio 1.5 (0.8-1.1) Heparin Anti-Xa Act, Unfractionated 0.55 IU/mL (0.30-0.70) 0.43 IU/mL (0.30-0.70) Test 02/27/20 20:20 02/28/20 04:40 02/28/20 07:50 Glucose (Fingerstick) 145 mg/dL (70-99) 127 mg/dL (70-99) Prothrombin Time 20.0 SEC (11.7-14.0) Prothromb Time International Ratio 1.7 (0.8-1.1) Heparin Anti-Xa Act, Unfractionated 0.35 IU/mL (0.30-0.70) Sodium Level 136 mmol/L (136-145) Potassium Level 3.3 mmol/L (3.5-5.1) Chloride Level 98 mmol/L (98-107) Carbon Dioxide Level 28 mmol/L (21-32) Anion Gap 10 (6-14) Blood Urea Nitrogen 21 mg/dL (7-20) Creatinine 1.6 mg/dL (0.6-1.0) Estimated GFR (Cockcroft-Gault) 31.8 Glucose Level 101 mg/dL (70-99) Calcium Level 8.1 mg/dL (8.5-10.1) Assessment and Plan Assessmemt and Plan Problems Medical Problems: (1) Chest pain Status: Acute (2) Elevated d-dimer Status: Acute (3) Suspected 2019 novel coronavirus infection Status: Acute Comment Review of Relevant I have reviewed the following items juliette (where applicable) has been applied. Labs Laboratory Tests Test 02/26/20 10:47 02/26/20 16:20 02/26/20 19:46 02/27/20 04:50 Glucose (Fingerstick) 217 mg/dL (70-99) 190 mg/dL (70-99) 196 mg/dL (70-99) White Blood Count 13.5 x10^3/uL (4.0-11.0) Red Blood Count 3.77 x10^6/uL (3.50-5.40) Hemoglobin 8.6 g/dL (12.0-15.5) Hematocrit 27.1 % (36.0-47.0) Mean Corpuscular Volume 72 fL (79-100) Mean Corpuscular Hemoglobin 23 pg (25-35) Mean Corpuscular Hemoglobin Concent 32 g/dL (31-37) Red Cell Distribution Width 19.6 % (11.5-14.5) Platelet Count 233 x10^3/uL (140-400) Heparin Anti-Xa Act, Unfractionated 0.25 IU/mL (0.30-0.70) Sodium Level 134 mmol/L (136-145) Potassium Level 3.7 mmol/L (3.5-5.1) Chloride Level 98 mmol/L (98-107) Carbon Dioxide Level 27 mmol/L (21-32) Anion Gap 9 (6-14) Blood Urea Nitrogen 22 mg/dL (7-20) Creatinine 1.6 mg/dL (0.6-1.0) Estimated GFR (Cockcroft-Gault) 31.8 Glucose Level 133 mg/dL (70-99) Calcium Level 8.2 mg/dL (8.5-10.1) Procalcitonin 0.44 ng/mL (0.00-0.10) Test 02/27/20 07:04 02/27/20 11:24 02/27/20 12:35 02/27/20 16:18 Glucose (Fingerstick) 141 mg/dL (70-99) 235 mg/dL (70-99) 182 mg/dL (70-99) Prothrombin Time 17.3 SEC (11.7-14.0) Prothromb Time International Ratio 1.5 (0.8-1.1) Heparin Anti-Xa Act, Unfractionated 0.55 IU/mL (0.30-0.70) Test 02/27/20 19:30 02/27/20 20:20 02/28/20 04:40 02/28/20 07:50 Heparin Anti-Xa Act, Unfractionated 0.43 IU/mL (0.30-0.70) 0.35 IU/mL (0.30-0.70) Glucose (Fingerstick) 145 mg/dL (70-99) 127 mg/dL (70-99) Prothrombin Time 20.0 SEC (11.7-14.0) Prothromb Time International Ratio 1.7 (0.8-1.1) Sodium Level 136 mmol/L (136-145) Potassium Level 3.3 mmol/L (3.5-5.1) Chloride Level 98 mmol/L (98-107) Carbon Dioxide Level 28 mmol/L (21-32) Anion Gap 10 (6-14) Blood Urea Nitrogen 21 mg/dL (7-20) Creatinine 1.6 mg/dL (0.6-1.0) Estimated GFR (Cockcroft-Gault) 31.8 Glucose Level 101 mg/dL (70-99) Calcium Level 8.1 mg/dL (8.5-10.1) Laboratory Tests Test 02/27/20 11:24 02/27/20 12:35 02/27/20 16:18 02/27/20 19:30 Glucose (Fingerstick) 235 mg/dL (70-99) 182 mg/dL (70-99) Prothrombin Time 17.3 SEC (11.7-14.0) Prothromb Time International Ratio 1.5 (0.8-1.1) Heparin Anti-Xa Act, Unfractionated 0.55 IU/mL (0.30-0.70) 0.43 IU/mL (0.30-0.70) Test 02/27/20 20:20 02/28/20 04:40 02/28/20 07:50 Glucose (Fingerstick) 145 mg/dL (70-99) 127 mg/dL (70-99) Prothrombin Time 20.0 SEC (11.7-14.0) Prothromb Time International Ratio 1.7 (0.8-1.1) Heparin Anti-Xa Act, Unfractionated 0.35 IU/mL (0.30-0.70) Sodium Level 136 mmol/L (136-145) Potassium Level 3.3 mmol/L (3.5-5.1) Chloride Level 98 mmol/L (98-107) Carbon Dioxide Level 28 mmol/L (21-32) Anion Gap 10 (6-14) Blood Urea Nitrogen 21 mg/dL (7-20) Creatinine 1.6 mg/dL (0.6-1.0) Estimated GFR (Cockcroft-Gault) 31.8 Glucose Level 101 mg/dL (70-99) Calcium Level 8.1 mg/dL (8.5-10.1) Medications Current Medications Aspirin (Brandee Aspirin) 325 mg 1X ONCE PO ; Start 02/22/20 at 22:30; Stop 02/22/20 at 22:26; Status DC Acetaminophen (Tylenol) 500 mg 1X ONCE PO Last administered on 02/22/20at 22:34; Start 02/22/20 at 23:00; Stop 02/22/20 at 23:01; Status DC Ondansetron HCl (Zofran) 4 mg PRN Q8HRS PRN IV NAUSEA/VOMITING 1ST CHOICE; Start 02/23/20 at 00:45; Stop 02/24/20 at 00:44; Status DC Insulin Human Lispro (HumaLOG) 0-5 UNITS TIDWMEALS SQ Last administered on 02/27/20at 18:20; Start 02/23/20 at 08:00 Dextrose (Dextrose 50%-Water Syringe) 12.5 gm PRN Q15MIN PRN IV SEE COMMENTS; Start 02/23/20 at 00:45 Magnesium Sulfate 50 ml @ 25 mls/hr 1X ONCE IV Last administered on 02/23/20 09:38; Start 02/23/20 at 09:15; Stop 02/23/20 at 11:14; Status DC Acetaminophen (Tylenol) 650 mg PRN Q6HRS PRN PO MILD PAIN / TEMP > 100.3'F Last administered on 02/25/20 13:49; Start 02/23/20 at 12:45 Alprazolam (Xanax) 0.25 mg PRN BID PRN PO ANXIETY / AGITATION Last administered on 02/26/20 20:59; Start 02/23/20 at 12:45 Amiodarone HCl (Cordarone) 200 mg DAILY PO Last administered on 02/27/20 09:01; Start 02/23/20 at 14:00 Aspirin (Aspirin Chewable) 81 mg DAILY PO Last administered on 02/27/20 09:02; Start 02/23/20 at 14:00 Atorvastatin Calcium (Lipitor) 40 mg HS PO Last administered on 02/27/20 20:55; Start 02/23/20 at 21:00 Citalopram Hydrobromide (CeleXA) 20 mg DAILY08 PO Last administered on 02/27/20 09:02; Start 02/23/20 at 14:00 Docusate Sodium (Colace) 100 mg BID PO Last administered on 02/27/20 20:55; Start 02/23/20 at 14:00 Furosemide (Lasix) 20 mg BID92 PO Last administered on 02/25/20 13:50; Start 02/23/20 at 14:00; Stop 02/25/20 at 13:51; Status DC Gabapentin (Neurontin) 100 mg BID PO Last administered on 02/27/20 20:55; Start 02/23/20 at 14:00 Acetaminophen/ Hydrocodone Bitart (Lortab 7.5/325) 1 tab PRN Q4HRS PRN PO MODERATE PAIN Last administered on 02/27/20 20:55; Start 02/23/20 at 12:45 Levothyroxine Sodium (Synthroid) 100 mcg DAILY06 PO Last administered on 6/27/20at 06:19; Start 02/23/20 at 14:00 Montelukast Sodium (Singulair) 10 mg HS PO Last administered on 02/27/20at 20:55; Start 02/23/20 at 21:00 Pantoprazole Sodium (Protonix) 40 mg DAILYAC PO Last administered on 02/27/20at 09:02; Start 02/23/20 at 16:30; Stop 02/27/20 at 14:50; Status DC Fenofibrate (Lofibra) 134 mg DAILY PO Last administered on 02/27/20at 09:02; Start 02/23/20 at 14:00 Insulin Glargine (Lantus Syringe) 35 unit QHS SQ Last administered on 02/27/20at 21:01; Start 02/23/20 at 21:00 Sacubitril/ Valsartan (Entresto 49 Mg-51 Mg) 1 tab DAILY PO Last administered on 02/27/20at 09:02; Start 02/23/20 at 14:00 Heparin Sodium (Porcine) (Heparin Sodium) 4,000 unit 1X ONCE IV Last administered on 02/23/20at 15:05; Start 02/23/20 at 14:30; Stop 02/23/20 at 14:31; Status DC Heparin Sodium/ Dextrose 250 ml @ 0 mls/hr CONT PRN IV PER PROTOCOL Last administered on 02/24/20at 04:34; Start 02/23/20 at 14:30; Stop 02/24/20 at 12:46; Status DC Heparin Sodium (Porcine) (Heparin Sodium) 2,750 unit PRN Q6HRS PRN IV FOR UFH LEVEL LESS THAN 0.2 Last administered on 02/23/20at 22:28; Start 02/23/20 at 14:30; Stop 02/24/20 at 12:46; Status DC Heparin Sodium (Porcine) (Heparin Sodium) 1,350 unit PRN Q6HRS PRN IV FOR UFH LEVEL 0.2 - 0.29; Start 02/23/20 at 14:30; Stop 02/24/20 at 12:46; Status DC Insulin Human Lispro (HumaLOG) 10 units 1X ONCE SQ Last administered on 02/23/20at 16:46; Start 02/23/20 at 16:45; Stop 02/23/20 at 16:46; Status DC Isosorbide Mononitrate (Imdur) 30 mg DAILY PO Last administered on 02/27/20at 09:02; Start 02/24/20 at 09:00 Info (Anti-Coagulation Monitoring By Pharmacy) 1 each PRN DAILY PRN MC SEE COMMENTS Last administered on 02/26/20at 12:38; Start 02/24/20 at 12:15 Insulin Human Regular (HumuLIN R VIAL) 35 unit TID SQ ; Start 02/24/20 at 14:00; Stop 02/24/20 at 12:23; Status DC Insulin Human Lispro (HumaLOG) 35 units TIDWMEALS SQ Last administered on 02/27/20at 18:20; Start 02/24/20 at 13:00 Apixaban (Eliquis) 10 mg BID PO ; Start 02/24/20 at 13:00; Stop 03/01/20 at 21:01; Status Cancel Apixaban (Eliquis) 5 mg BID PO ; Start 03/02/20 at 09:00; Status Cancel Warfarin Sodium (Coumadin Per Pharmacy) 1 each PRN DAILY PRN MC SEE COMMENTS Last administered on 02/28/20at 07:14; Start 02/24/20 at 13:15 Warfarin Sodium (Coumadin) 5 mg 1X WARF ONCE PO Last administered on 02/24/20at 15:03; Start 02/24/20 at 16:00; Stop 02/24/20 at 16:01; Status DC Heparin Sodium/ Dextrose 250 ml @ 0 mls/hr CONT PRN IV PER PROTOCOL Last administered on 02/28/20at 01:27; Start 02/24/20 at 13:45 Heparin Sodium (Porcine) (Heparin Sodium) 2,750 unit PRN Q6HRS PRN IV FOR UFH LEVEL LESS THAN 0.2 Last administered on 02/24/20at 16:34; Start 02/24/20 at 13:45 Heparin Sodium (Porcine) (Heparin Sodium) 1,350 unit PRN Q6HRS PRN IV FOR UFH LEVEL 0.2 - 0.29 Last administered on 02/27/20at 06:09; Start 02/24/20 at 13:45 Furosemide (Lasix) 40 mg BID92 PO Last administered on 02/27/20at 15:26; Start 02/25/20 at 14:00 Warfarin Sodium (Coumadin) 5 mg 1X WARF ONCE PO Last administered on 02/25/20at 17:14; Start 02/25/20 at 16:00; Stop 02/25/20 at 16:01; Status DC Piperacillin Sod/ Tazobactam Sod 4.5 gm/Sodium Chloride 100 ml @ 200 mls/hr 1X ONCE IV Last administered on 02/26/20at 12:34; Start 02/26/20 at 12:00; Stop 02/26/20 at 12:29; Status DC Piperacillin Sod/ Tazobactam Sod (Zosyn Per Pharmacy) 1 each PRN DAILY PRN MC SEE COMMENTS; Start 02/26/20 at 11:30 Iron Sucrose 200 mg/Sodium Chloride 110 ml @ 55 mls/hr 1X ONCE IV ; Start 02/26/20 at 12:00; Stop 02/26/20 at 15:27; Status DC Piperacillin Sod/ Tazobactam Sod 4.5 gm/Sodium Chloride 100 ml @ 200 mls/hr Q6HRS IV Last administered on 02/28/20at 06:18; Start 02/26/20 at 18:00; Stop 02/28/20 at 07:12; Status DC Warfarin Sodium (Coumadin) 7.5 mg 1X WARF ONCE PO Last administered on 02/26/20at 15:48; Start 02/26/20 at 16:00; Stop 02/26/20 at 16:01; Status DC Ferrous Sulfate (Feosol) 325 mg TIDWMEALHC PO Last administered on 02/27/20at 20:55; Start 02/26/20 at 17:00 Ascorbic Acid (Vitamin C) 500 mg DAILY PO Last administered on 02/27/20at 09:02; Start 02/27/20 at 09:00 Warfarin Sodium (Coumadin) 7.5 mg 1X WARF ONCE PO Last administered on 02/27/20at 18:13; Start 02/27/20 at 16:00; Stop 02/27/20 at 16:01; Status DC Lactobacillus Rhamnosus (Culturelle) 1 cap BID PO Last administered on 02/27/20at 20:55; Start 02/27/20 at 21:00 Barium Sulfate (Varibar Thin Liquid Apple) 148 gm 1X ONCE PO Last administered on 02/27/20at 13:45; Start 02/27/20 at 12:30; Stop 02/27/20 at 12:31; Status DC Barium Sulfate (Liquid E-Z Paque) 355 ml 1X ONCE PO Last administered on 02/27/20at 13:55; Start 02/27/20 at 13:00; Stop 02/27/20 at 13:01; Status DC Barium Sulfate (E-Z-Hd) 340 gm 1X ONCE PO ; Start 02/27/20 at 13:00; Stop 02/27/20 at 13:01; Status DC Simethicone/ Sodium Bicarb/ Citric Ac (E-Z-Gas) 1 packet 1X ONCE PO ; Start 02/27/20 at 13:00; Stop 02/27/20 at 13:01; Status DC Pantoprazole Sodium (Protonix) 40 mg BIDAC PO Last administered on 02/28/20at 06:19; Start 02/27/20 at 16:30 Warfarin Sodium (Coumadin) 7.5 mg 1X WARF ONCE PO ; Start 02/28/20 at 16:00; Stop 02/28/20 at 16:01 Piperacillin Sod/ Tazobactam Sod 3.375 gm/Sodium Chloride 50 ml @ 100 mls/hr Q6HRS IV ; Start 02/28/20 at 12:00 Active Scripts Active Colace (Docusate Sodium) 100 Mg Capsule 1 Cap PO BID 30 Days Alprazolam 0.25 Mg Tablet 1 Tab PO BID PRN Reported Entresto 97 mg-103 mg Tablet (Sacubitril/Valsartan) 1 Each Tablet 0.5 Each PO DAILY Aspirin 81 Mg Tab.chew 81 Mg PO DAILY Citalopram Hbr (Citalopram Hydrobromide) 20 Mg Tablet 1 Tab PO DAILY08 Hydrocodone-Apap 7.5-325 (Hydrocodone Bit/Acetaminophen) 1 Tab Tablet 1 Tab PO Q4HRS PRN Furosemide 20 Mg Tablet 20 Mg PO BID Amiodarone Hcl 200 Mg Tablet 1 Tab PO DAILY Montelukast Sodium Tablet (Montelukast Sodium) 10 Mg Tablet 10 Mg PO HS Levothyroxine Sodium 100 Mcg Tablet 1 Tab PO DAILY Proair Hfa Inhaler (Albuterol Sulfate) 8.5 Gm Hfa.aer.ad 2 Puff IH PRN Q4-6HRS Tylenol (Acetaminophen) 325 Mg Tablet 650 Mg PO Fenofibrate (Fenofibrate Nanocrystallized) 145 Mg Tablet 1 Tab PO DAILY Humalog (Insulin Lispro) 100 Unit/1 Ml Vial 35 Unit SQ TID Lantus Solostar (Insulin Glargine,Hum.rec.anlog) 100 Unit/1 Ml Insuln.pen 35 Unit SQ HS Pantoprazole Sodium (Pantoprazole Sodium) 40 Mg Tablet.dr 40 Mg PO DAILY Atorvastatin Calcium 40 Mg Tablet 40 Mg PO HS Gabapentin (Gabapentin) 100 Mg Capsule 100 Mg PO BID Vitals/I & O Vital Sign - Last 24 Hours 02/27/20 02/27/20 02/27/20 02/27/20 09:01 09:02 09:02 10:52 Temp 98.7 98.7 Pulse 100 100 100 98 Resp 18 B/P (MAP) 122/56 122/56 122/56 98/51 (67) Pulse Ox 93 O2 Delivery Nasal Cannula O2 Flow Rate 3.0 02/27/20 02/27/20 02/27/20 02/27/20 14:37 15:27 16:52 19:00 Temp 98.2 98.1 98.2 98.1 Pulse 105 94 Resp 18 21 B/P (MAP) 112/56 (74) 111/56 (74) Pulse Ox 94 94 94 97 O2 Delivery Nasal Cannula Nasal Cannula Nasal Cannula Nasal Cannula O2 Flow Rate 3.0 3.0 3.0 3.0 02/27/20 02/27/20 02/27/20 02/27/20 20:00 20:55 22:00 23:00 Temp 97.4 97.4 Pulse 90 Resp 20 18 23 B/P (MAP) 125/58 (80) Pulse Ox 99 99 O2 Delivery Nasal Cannula Nasal Cannula Nasal Cannula O2 Flow Rate 3.0 3.0 3.0 02/28/20 03:00 Temp 97.5 97.5 Pulse 89 Resp 20 B/P (MAP) 108/54 (72) Pulse Ox 100 O2 Delivery Nasal Cannula O2 Flow Rate 3.0 Intake and Output 02/27/20 02/27/20 02/28/20 15:00 23:00 07:00 Intake Total 550 ml 500 ml Balance 550 ml 500 ml GINA PATEL MD Feb 28, 2020 08:17
[2020-02-28] MEDS ORDERED: POTASSIUM CHLORIDE 20 MEQ TABLET.ER. PO ONE (08:30)
[2020-02-28] MEDS: LACTOBACILLUS RHAMNOSUS GG 1 CAPSULE. PO SCH ×2 (08:34→20:57)
[2020-02-28] MEDS: DOCUSATE SODIUM 100 MG CAPSULE. PO SCH ×2 (08:34→20:57)
[2020-02-28] MEDS: SACUBITRIL/VALSARTAN 49/51MG TABLET. PO SCH (08:35)
[2020-02-28] MEDS: GABAPENTIN 100 MG CAPSULE. PO SCH ×2 (08:35→20:57)
[2020-02-28] MEDS: FERROUS SULFATE 325 MG TABLET. PO SCH ×4 (08:35→20:57)
[2020-02-28] MEDS: FENOFIBRATE,MICRONIZED 134 MG CAPSULE PO SCH (08:35)
[2020-02-28] MEDS: CITALOPRAM 20 MG TABLET. PO SCH (08:35)
[2020-02-28] MEDS: ISOSORBIDE MONONITRATE ER 30 MG TAB.ER.24H PO SCH (08:36)
[2020-02-28] MEDS: ASCORBIC ACID 500 MG TABLET PO SCH (08:36)
[2020-02-28] MEDS: AMIODARONE HCL 200 MG TABLET. PO SCH (08:36)
[2020-02-28] MEDS: ASPIRIN CHEWABLE 81 MG TABLET. PO SCH (08:37)
[2020-02-28] MEDS: FUROSEMIDE 40 MG TABLET. PO SCH ×2 (09:00→15:06)
--- NOTE | 2020-02-28 10:00 | PDOC ---
PULMONARY PROGRESS NOTES Subjective Remains on N/C oxygen, denies SOB, reports increase in non-productive cough Vitals Vital Signs Date Time Temp Pulse Resp B/P (MAP) Pulse Ox O2 Delivery O2 Flow Rate FiO2 02/28/20 08:36 93 118/55 02/28/20 07:00 98.6 17 96 Nasal Cannula 3.0 98.6 ROS: No Nausea, No Chest Pain, No Abdominal Pain General: Alert, No acute distress Lungs: Other (decrease bs) Cardiovascular: S1, S2 Abdomen: Soft, Other (obese) Extremities: Other (1+edema) Skin: Warm, Dry Labs Laboratory Tests Test 02/26/20 10:47 02/26/20 16:20 02/26/20 19:46 02/27/20 04:50 Glucose (Fingerstick) 217 mg/dL (70-99) 190 mg/dL (70-99) 196 mg/dL (70-99) White Blood Count 13.5 x10^3/uL (4.0-11.0) Red Blood Count 3.77 x10^6/uL (3.50-5.40) Hemoglobin 8.6 g/dL (12.0-15.5) Hematocrit 27.1 % (36.0-47.0) Mean Corpuscular Volume 72 fL (79-100) Mean Corpuscular Hemoglobin 23 pg (25-35) Mean Corpuscular Hemoglobin Concent 32 g/dL (31-37) Red Cell Distribution Width 19.6 % (11.5-14.5) Platelet Count 233 x10^3/uL (140-400) Heparin Anti-Xa Act, Unfractionated 0.25 IU/mL (0.30-0.70) Sodium Level 134 mmol/L (136-145) Potassium Level 3.7 mmol/L (3.5-5.1) Chloride Level 98 mmol/L (98-107) Carbon Dioxide Level 27 mmol/L (21-32) Anion Gap 9 (6-14) Blood Urea Nitrogen 22 mg/dL (7-20) Creatinine 1.6 mg/dL (0.6-1.0) Estimated GFR (Cockcroft-Gault) 31.8 Glucose Level 133 mg/dL (70-99) Calcium Level 8.2 mg/dL (8.5-10.1) Procalcitonin 0.44 ng/mL (0.00-0.10) Test 02/27/20 07:04 02/27/20 11:24 02/27/20 12:35 02/27/20 16:18 Glucose (Fingerstick) 141 mg/dL (70-99) 235 mg/dL (70-99) 182 mg/dL (70-99) Prothrombin Time 17.3 SEC (11.7-14.0) Prothromb Time International Ratio 1.5 (0.8-1.1) Heparin Anti-Xa Act, Unfractionated 0.55 IU/mL (0.30-0.70) Test 02/27/20 19:30 02/27/20 20:20 02/28/20 04:40 02/28/20 07:50 Heparin Anti-Xa Act, Unfractionated 0.43 IU/mL (0.30-0.70) 0.35 IU/mL (0.30-0.70) Glucose (Fingerstick) 145 mg/dL (70-99) 127 mg/dL (70-99) Prothrombin Time 20.0 SEC (11.7-14.0) Prothromb Time International Ratio 1.7 (0.8-1.1) Sodium Level 136 mmol/L (136-145) Potassium Level 3.3 mmol/L (3.5-5.1) Chloride Level 98 mmol/L (98-107) Carbon Dioxide Level 28 mmol/L (21-32) Anion Gap 10 (6-14) Blood Urea Nitrogen 21 mg/dL (7-20) Creatinine 1.6 mg/dL (0.6-1.0) Estimated GFR (Cockcroft-Gault) 31.8 Glucose Level 101 mg/dL (70-99) Calcium Level 8.1 mg/dL (8.5-10.1) Magnesium Level 1.8 mg/dL (1.8-2.4) Laboratory Tests Test 02/27/20 11:24 02/27/20 12:35 02/27/20 16:18 02/27/20 19:30 Glucose (Fingerstick) 235 mg/dL (70-99) 182 mg/dL (70-99) Prothrombin Time 17.3 SEC (11.7-14.0) Prothromb Time International Ratio 1.5 (0.8-1.1) Heparin Anti-Xa Act, Unfractionated 0.55 IU/mL (0.30-0.70) 0.43 IU/mL (0.30-0.70) Test 02/27/20 20:20 02/28/20 04:40 02/28/20 07:50 Glucose (Fingerstick) 145 mg/dL (70-99) 127 mg/dL (70-99) Prothrombin Time 20.0 SEC (11.7-14.0) Prothromb Time International Ratio 1.7 (0.8-1.1) Heparin Anti-Xa Act, Unfractionated 0.35 IU/mL (0.30-0.70) Sodium Level 136 mmol/L (136-145) Potassium Level 3.3 mmol/L (3.5-5.1) Chloride Level 98 mmol/L (98-107) Carbon Dioxide Level 28 mmol/L (21-32) Anion Gap 10 (6-14) Blood Urea Nitrogen 21 mg/dL (7-20) Creatinine 1.6 mg/dL (0.6-1.0) Estimated GFR (Cockcroft-Gault) 31.8 Glucose Level 101 mg/dL (70-99) Calcium Level 8.1 mg/dL (8.5-10.1) Magnesium Level 1.8 mg/dL (1.8-2.4) Medications Active Scripts Medications Dose Route/Sig Max Daily Dose Days Date Category Entresto 97 mg-103 mg Tablet (Sacubitril/Valsartan) 1 Each Tablet 0.5 Each PO DAILY 02/18/20 Reported Aspirin 81 Mg Tab.chew 81 Mg PO DAILY 02/18/20 Reported Citalopram Hbr (Citalopram Hydrobromide) 20 Mg Tablet 1 Tab PO DAILY08 12/23/19 Reported Hydrocodone-Apap 7.5-325 (Hydrocodone Bit/Acetaminophen) 1 Tab Tablet 1 Tab PO Q4HRS PRN 12/23/19 Reported Furosemide 20 Mg Tablet 20 Mg PO BID 12/23/19 Reported Amiodarone Hcl 200 Mg Tablet 1 Tab PO DAILY 12/23/19 Reported Colace (Docusate Sodium) 100 Mg Capsule 1 Cap PO BID 30 10/14/19 Rx Alprazolam 0.25 Mg Tablet 1 Tab PO BID PRN 10/02/19 Rx Montelukast Sodium Tablet (Montelukast Sodium) 10 Mg Tablet 10 Mg PO HS 11/30/17 Reported Levothyroxine Sodium 100 Mcg Tablet 1 Tab PO DAILY 05/26/16 Reported Proair Hfa Inhaler (Albuterol Sulfate) 8.5 Gm Hfa.aer.ad 2 Puff IH PRN Q4-6HRS 05/20/15 Reported Tylenol (Acetaminophen) 325 Mg Tablet 650 Mg PO 05/14/15 Reported Fenofibrate (Fenofibrate Nanocrystallized) 145 Mg Tablet 1 Tab PO DAILY 05/14/15 Reported Humalog (Insulin Lispro) 100 Unit/1 Ml Vial 35 Unit SQ TID 04/08/14 Reported Lantus Solostar (Insulin Glargine,Hum.rec.anlog) 100 Unit/1 Ml Insuln.pen 35 Unit SQ HS 04/08/14 Reported Pantoprazole Sodium (Pantoprazole Sodium) 40 Mg Tablet.dr 40 Mg PO DAILY 04/08/14 Reported Atorvastatin Calcium 40 Mg Tablet 40 Mg PO HS 04/08/14 Reported Gabapentin (Gabapentin) 100 Mg Capsule 100 Mg PO BID 04/08/[address] chest IMPRESSION: Bilateral consolidative lung infiltrates which may represent pneumonia or aspiration pneumonitis. Impression . 1. Acute hypoxemic respiratory--improving 2. No significant tobacco history. 3. Cardiomyopathy with an ejection fraction of 20%-25% with possible mild congestive heart failure. She has severe global hypokinesis. She is status post stents. 4. 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 5. History of breast cancer with prior left mastectomy. 6. Abnormal CXR with possible faint mild interstitial infiltrates 7. CT no evidence of pulmonary embolus 8. CT with bilateral infiltrates left upper lobe right lower lobe, suspect infectious process, not typical of amiodarone induced lung injury 9. Bilateral pleural effusion Plan . Continue supplemental oxygen to keep sats above 92% Cont. ABX Follow cardiology recs-- new ECHO shows EF 20-25% Continue Anticoagulation --on coumadin Plan to Repeat CT chest in 8 weeks OOB as tolerated -- PT/ OT D/W KIRT MUNIZ MD Feb 28, 2020 10:00
[2020-02-28 11:00] VITALS: BP 99/51
--- NOTE | 2020-02-28 11:46 | PDOC ---
PROGRESS NOTES Subjective Subjective Patient seen and examined Objective Objective Vital Signs Date Time Temp Pulse Resp B/P (MAP) Pulse Ox O2 Delivery O2 Flow Rate FiO2 02/28/20 08:36 93 118/55 02/28/20 08:00 Nasal Cannula 3.0 02/28/20 07:00 98.6 17 96 98.6 Intake and Output 02/28/20 07:00 Intake Total 1050 ml Balance 1050 ml Intake Oral 950 ml IV Total 100 ml # Voids 4 # Bowel Movements 1 Physical Exam Abdomen: Normal bowel sounds Heart: Regular rate General: mild distress Lungs: Other (Mildly decreased breath sounds) Assessment Assessment Problems Medical Problems: (1) Chest pain Status: Acute (2) Elevated d-dimer Status: Acute (3) Suspected 2019 novel coronavirus infection Status: Acute Atypical CP: none further possibly pleuritic. Continue present medications CAD: recent LHC with patent stents. Clinically stable Acute respiratory failure with possible recurrent PE. VQ with intermediated probability for PE. Anticoagulation as above. Acute on chronic systolic CHF with severe ICM/NICM: EF at 20-25%. appears compensated H/o VT with ICD discharge. On Amiodarone for rhythm maintenance No ILD ok per pulmonary DM2/HLP: Continue current treatment PAD: s/p percutaneous revascularization. stable, no claudications CKD; nephrology following HTN: controlled H/o PE s/p IVC filter. This was removed 02/18/20. Arrhythmia: periods of PSVT and aberrant conduction. Improved today. s/p AICD ([place] A) Comment Review of Relevant I have reviewed the following items juliette (where applicable) has been applied. Labs Laboratory Tests Test 02/26/20 16:20 02/26/20 19:46 02/27/20 04:50 02/27/20 07:04 Glucose (Fingerstick) 190 mg/dL (70-99) 196 mg/dL (70-99) 141 mg/dL (70-99) White Blood Count 13.5 x10^3/uL (4.0-11.0) Red Blood Count 3.77 x10^6/uL (3.50-5.40) Hemoglobin 8.6 g/dL (12.0-15.5) Hematocrit 27.1 % (36.0-47.0) Mean Corpuscular Volume 72 fL (79-100) Mean Corpuscular Hemoglobin 23 pg (25-35) Mean Corpuscular Hemoglobin Concent 32 g/dL (31-37) Red Cell Distribution Width 19.6 % (11.5-14.5) Platelet Count 233 x10^3/uL (140-400) Heparin Anti-Xa Act, Unfractionated 0.25 IU/mL (0.30-0.70) Sodium Level 134 mmol/L (136-145) Potassium Level 3.7 mmol/L (3.5-5.1) Chloride Level 98 mmol/L (98-107) Carbon Dioxide Level 27 mmol/L (21-32) Anion Gap 9 (6-14) Blood Urea Nitrogen 22 mg/dL (7-20) Creatinine 1.6 mg/dL (0.6-1.0) Estimated GFR (Cockcroft-Gault) 31.8 Glucose Level 133 mg/dL (70-99) Calcium Level 8.2 mg/dL (8.5-10.1) Procalcitonin 0.44 ng/mL (0.00-0.10) Test 02/27/20 11:24 02/27/20 12:35 02/27/20 16:18 02/27/20 19:30 Glucose (Fingerstick) 235 mg/dL (70-99) 182 mg/dL (70-99) Prothrombin Time 17.3 SEC (11.7-14.0) Prothromb Time International Ratio 1.5 (0.8-1.1) Heparin Anti-Xa Act, Unfractionated 0.55 IU/mL (0.30-0.70) 0.43 IU/mL (0.30-0.70) Test 02/27/20 20:20 02/28/20 04:40 02/28/20 07:50 02/28/20 11:30 Glucose (Fingerstick) 145 mg/dL (70-99) 127 mg/dL (70-99) 255 mg/dL (70-99) Prothrombin Time 20.0 SEC (11.7-14.0) Prothromb Time International Ratio 1.7 (0.8-1.1) Heparin Anti-Xa Act, Unfractionated 0.35 IU/mL (0.30-0.70) Sodium Level 136 mmol/L (136-145) Potassium Level 3.3 mmol/L (3.5-5.1) Chloride Level 98 mmol/L (98-107) Carbon Dioxide Level 28 mmol/L (21-32) Anion Gap 10 (6-14) Blood Urea Nitrogen 21 mg/dL (7-20) Creatinine 1.6 mg/dL (0.6-1.0) Estimated GFR (Cockcroft-Gault) 31.8 Glucose Level 101 mg/dL (70-99) Calcium Level 8.1 mg/dL (8.5-10.1) Magnesium Level 1.8 mg/dL (1.8-2.4) Laboratory Tests Test 02/27/20 12:35 02/27/20 16:18 02/27/20 19:30 02/27/20 20:20 Prothrombin Time 17.3 SEC (11.7-14.0) Prothromb Time International Ratio 1.5 (0.8-1.1) Heparin Anti-Xa Act, Unfractionated 0.55 IU/mL (0.30-0.70) 0.43 IU/mL (0.30-0.70) Glucose (Fingerstick) 182 mg/dL (70-99) 145 mg/dL (70-99) Test 02/28/20 04:40 02/28/20 07:50 02/28/20 11:30 Prothrombin Time 20.0 SEC (11.7-14.0) Prothromb Time International Ratio 1.7 (0.8-1.1) Heparin Anti-Xa Act, Unfractionated 0.35 IU/mL (0.30-0.70) Sodium Level 136 mmol/L (136-145) Potassium Level 3.3 mmol/L (3.5-5.1) Chloride Level 98 mmol/L (98-107) Carbon Dioxide Level 28 mmol/L (21-32) Anion Gap 10 (6-14) Blood Urea Nitrogen 21 mg/dL (7-20) Creatinine 1.6 mg/dL (0.6-1.0) Estimated GFR (Cockcroft-Gault) 31.8 Glucose Level 101 mg/dL (70-99) Calcium Level 8.1 mg/dL (8.5-10.1) Magnesium Level 1.8 mg/dL (1.8-2.4) Glucose (Fingerstick) 127 mg/dL (70-99) 255 mg/dL (70-99) Medications Current Medications Aspirin (Brandee Aspirin) 325 mg 1X ONCE PO ; Start 02/22/20 at 22:30; Stop 02/22/20 at 22:26; Status DC Acetaminophen (Tylenol) 500 mg 1X ONCE PO Last administered on 02/22/20at 22:34; Start 02/22/20 at 23:00; Stop 02/22/20 at 23:01; Status DC Ondansetron HCl (Zofran) 4 mg PRN Q8HRS PRN IV NAUSEA/VOMITING 1ST CHOICE; Start 02/23/20 at 00:45; Stop 02/24/20 at 00:44; Status DC Insulin Human Lispro (HumaLOG) 0-5 UNITS TIDWMEALS SQ Last administered on 02/27/20at 18:20; Start 02/23/20 at 08:00 Dextrose (Dextrose 50%-Water Syringe) 12.5 gm PRN Q15MIN PRN IV SEE COMMENTS; Start 02/23/20 at 00:45 Magnesium Sulfate 50 ml @ 25 mls/hr 1X ONCE IV Last administered on 02/23/20at 09:38; Start 02/23/20 at 09:15; Stop 02/23/20 at 11:14; Status DC Acetaminophen (Tylenol) 650 mg PRN Q6HRS PRN PO MILD PAIN / TEMP > 100.3'F Last administered on 02/25/20at 13:49; Start 02/23/20 at 12:45 Alprazolam (Xanax) 0.25 mg PRN BID PRN PO ANXIETY / AGITATION Last administered on 02/26/20at 20:59; Start 02/23/20 at 12:45 Amiodarone HCl (Cordarone) 200 mg DAILY PO Last administered on 02/28/20at 08:36; Start 02/23/20 at 14:00 Aspirin (Aspirin Chewable) 81 mg DAILY PO Last administered on 02/28/20at 08:37; Start 02/23/20 at 14:00 Atorvastatin Calcium (Lipitor) 40 mg HS PO Last administered on 02/27/20at 20:55; Start 02/23/20 at 21:00 Citalopram Hydrobromide (CeleXA) 20 mg DAILY08 PO Last administered on 02/28/20at 08:35; Start 02/23/20 at 14:00 Docusate Sodium (Colace) 100 mg BID PO Last administered on 02/28/20 08:34; Start 02/23/20 at 14:00 Furosemide (Lasix) 20 mg BID92 PO Last administered on 02/25/20 13:50; Start 02/23/20 at 14:00; Stop 02/25/20 at 13:51; Status DC Gabapentin (Neurontin) 100 mg BID PO Last administered on 02/28/20 08:35; Start 02/23/20 at 14:00 Acetaminophen/ Hydrocodone Bitart (Lortab 7.5/325) 1 tab PRN Q4HRS PRN PO MODERATE PAIN Last administered on 02/27/20 20:55; Start 02/23/20 at 12:45 Levothyroxine Sodium (Synthroid) 100 mcg DAILY06 PO Last administered on 02/28/20 06:19; Start 02/23/20 at 14:00 Montelukast Sodium (Singulair) 10 mg HS PO Last administered on 02/27/20at 20:55; Start 02/23/20 at 21:00 Pantoprazole Sodium (Protonix) 40 mg DAILYAC PO Last administered on 02/27/20 09:02; Start 02/23/20 at 16:30; Stop 02/27/20 at 14:50; Status DC Fenofibrate (Lofibra) 134 mg DAILY PO Last administered on 02/28/20 08:35; Start 02/23/20 at 14:00 Insulin Glargine (Lantus Syringe) 35 unit QHS SQ Last administered on 02/27/20at 21:01; Start 02/23/20 at 21:00 Sacubitril/ Valsartan (Entresto 49 Mg-51 Mg) 1 tab DAILY PO Last administered o n 02/28/20 08:35; Start 02/23/20 at 14:00 Heparin Sodium (Porcine) (Heparin Sodium) 4,000 unit 1X ONCE IV Last administered on 02/23/20at 15:05; Start 02/23/20 at 14:30; Stop 02/23/20 at 14:31; Status DC Heparin Sodium/ Dextrose 250 ml @ 0 mls/hr CONT PRN IV PER PROTOCOL Last administered on 6/23/20at 04:34; Start 02/23/20 at 14:30; Stop 02/24/20 at 12:46; Status DC Heparin Sodium (Porcine) (Heparin Sodium) 2,750 unit PRN Q6HRS PRN IV FOR UFH LEVEL LESS THAN 0.2 Last administered on 02/23/20at 22:28; Start 02/23/20 at 14:30; Stop 02/24/20 at 12:46; Status DC Heparin Sodium (Porcine) (Heparin Sodium) 1,350 unit PRN Q6HRS PRN IV FOR UFH LEVEL 0.2 - 0.29; Start 02/23/20 at 14:30; Stop 02/24/20 at 12:46; Status DC Insulin Human Lispro (HumaLOG) 10 units 1X ONCE SQ Last administered on 02/23/20at 16:46; Start 02/23/20 at 16:45; Stop 02/23/20 at 16:46; Status DC Isosorbide Mononitrate (Imdur) 30 mg DAILY PO Last administered on 02/28/20at 08:36; Start 02/24/20 at 09:00 Info (Anti-Coagulation Monitoring By Pharmacy) 1 each PRN DAILY PRN MC SEE COMMENTS Last administered on 02/26/20at 12:38; Start 02/24/20 at 12:15 Insulin Human Regular (HumuLIN R VIAL) 35 unit TID SQ ; Start 02/24/20 at 14:00; Stop 02/24/20 at 12:23; Status DC Insulin Human Lispro (HumaLOG) 35 units TIDWMEALS SQ Last administered on 02/28/20at 08:46; Start 02/24/20 at 13:00 Apixaban (Eliquis) 10 mg BID PO ; Start 02/24/20 at 13:00; Stop 03/01/20 at 21:01; Status Cancel Apixaban (Eliquis) 5 mg BID PO ; Start 03/02/20 at 09:00; Status Cancel Warfarin Sodium (Coumadin Per Pharmacy) 1 each PRN DAILY PRN MC SEE COMMENTS Last administered on 02/28/20at 07:14; Start 02/24/20 at 13:15 Warfarin Sodium (Coumadin) 5 mg 1X WARF ONCE PO Last administered on 02/24/20at 15:03; Start 02/24/20 at 16:00; Stop 02/24/20 at 16:01; Status DC Heparin Sodium/ Dextrose 250 ml @ 0 mls/hr CONT PRN IV PER PROTOCOL Last administered on 02/28/20at 01:27; Start 02/24/20 at 13:45 Heparin Sodium (Porcine) (Heparin Sodium) 2,750 unit PRN Q6HRS PRN IV FOR UFH LEVEL LESS THAN 0.2 Last administered on 02/24/20at 16:34; Start 02/24/20 at 13:45 Heparin Sodium (Porcine) (Heparin Sodium) 1,350 unit PRN Q6HRS PRN IV FOR UFH LEVEL 0.2 - 0.29 Last administered on 02/27/20at 06:09; Start 02/24/20 at 13:45 Furosemide (Lasix) 40 mg BID92 PO Last administered on 02/27/20at 15:26; Start 02/25/20 at 14:00 Warfarin Sodium (Coumadin) 5 mg 1X WARF ONCE PO Last administered on 02/25/20at 17:14; Start 02/25/20 at 16:00; Stop 02/25/20 at 16:01; Status DC Piperacillin Sod/ Tazobactam Sod 4.5 gm/Sodium Chloride 100 ml @ 200 mls/hr 1X ONCE IV Last administered on 02/26/20at 12:34; Start 02/26/20 at 12:00; Stop 02/26/20 at 12:29; Status DC Piperacillin Sod/ Tazobactam Sod (Zosyn Per Pharmacy) 1 each PRN DAILY PRN MC SEE COMMENTS; Start 02/26/20 at 11:30 Iron Sucrose 200 mg/Sodium Chloride 110 ml @ 55 mls/hr 1X ONCE IV ; Start 02/26/20 at 12:00; Stop 02/26/20 at 15:27; Status DC Piperacillin Sod/ Tazobactam Sod 4.5 gm/Sodium Chloride 100 ml @ 200 mls/hr Q6HRS IV Last administered on 02/28/20at 06:18; Start 02/26/20 at 18:00; Stop 02/28/20 at 07:12; Status DC Warfarin Sodium (Coumadin) 7.5 mg 1X WARF ONCE PO Last administered on 02/26/20at 15:48; Start 02/26/20 at 16:00; Stop 02/26/20 at 16:01; Status DC Ferrous Sulfate (Feosol) 325 mg TIDWMEALHC PO Last administered on 02/28/20at 08:35; Start 02/26/20 at 17:00 Ascorbic Acid (Vitamin C) 500 mg DAILY PO Last administered on 02/28/20at 08:36; Start 02/27/20 at 09:00 Warfarin Sodium (Coumadin) 7.5 mg 1X WARF ONCE PO Last administered on 0at 18:13; Start 02/27/20 at 16:00; Stop 02/27/20 at 16:01; Status DC Lactobacillus Rhamnosus (Culturelle) 1 cap BID PO Last administered on 02/28/20at 08:34; Start 02/27/20 at 21:00 Barium Sulfate (Varibar Thin Liquid Apple) 148 gm 1X ONCE PO Last administered on 02/27/20at 13:45; Start 02/27/20 at 12:30; Stop 02/27/20 at 12:31; Status DC Barium Sulfate (Liquid E-Z Paque) 355 ml 1X ONCE PO Last administered on 02/27/20at 13:55; Start 02/27/20 at 13:00; Stop 02/27/20 at 13:01; Status DC Barium Sulfate (E-Z-Hd) 340 gm 1X ONCE PO ; Start 02/27/20 at 13:00; Stop 02/27/20 at 13:01; Status DC Simethicone/ Sodium Bicarb/ Citric Ac (E-Z-Gas) 1 packet 1X ONCE PO ; Start 02/27/20 at 13:00; Stop 02/27/20 at 13:01; Status DC Pantoprazole Sodium (Protonix) 40 mg BIDAC PO Last administered on 02/28/20at 06:19; Start 02/27/20 at 16:30 Warfarin Sodium (Coumadin) 7.5 mg 1X WARF ONCE PO ; Start 02/28/20 at 16:00; Stop 02/28/20 at 16:01 Piperacillin Sod/ Tazobactam Sod 3.375 gm/Sodium Chloride 50 ml @ 100 mls/hr Q6HRS IV ; Start 02/28/20 at 12:00 Potassium Chloride (Klor-Con) 40 meq 1X ONCE PO Last administered on 02/28/20at 08:35; Start 02/28/20 at 08:30; Stop 02/28/20 at 08:31; Status DC Active Scripts Active Colace (Docusate Sodium) 100 Mg Capsule 1 Cap PO BID 30 Days Alprazolam 0.25 Mg Tablet 1 Tab PO BID PRN Reported Entresto 97 mg-103 mg Tablet (Sacubitril/Valsartan) 1 Each Tablet 0.5 Each PO DAILY Aspirin 81 Mg Tab.chew 81 Mg PO DAILY Citalopram Hbr (Citalopram Hydrobromide) 20 Mg Tablet 1 Tab PO DAILY08 Hydrocodone-Apap 7.5-325 (Hydrocodone Bit/Acetaminophen) 1 Tab Tablet 1 Tab PO Q4HRS PRN Furosemide 20 Mg Tablet 20 Mg PO BID Amiodarone Hcl 200 Mg Tablet 1 Tab PO DAILY Montelukast Sodium Tablet (Montelukast Sodium) 10 Mg Tablet 10 Mg PO HS Levothyroxine Sodium 100 Mcg Tablet 1 Tab PO DAILY Proair Hfa Inhaler (Albuterol Sulfate) 8.5 Gm Hfa.aer.ad 2 Puff IH PRN Q4-6HRS Tylenol (Acetaminophen) 325 Mg Tablet 650 Mg PO Fenofibrate (Fenofibrate Nanocrystallized) 145 Mg Tablet 1 Tab PO DAILY Humalog (Insulin Lispro) 100 Unit/1 Ml Vial 35 Unit SQ TID Lantus Solostar (Insulin Glargine,Hum.rec.anlog) 100 Unit/1 Ml Insuln.pen 35 Unit SQ HS Pantoprazole Sodium (Pantoprazole Sodium) 40 Mg Tablet.dr 40 Mg PO DAILY Atorvastatin Calcium 40 Mg Tablet 40 Mg PO HS Gabapentin (Gabapentin) 100 Mg Capsule 100 Mg PO BID Vitals/I & O Vital Sign - Last 24 Hours 02/27/20 02/27/20 02/27/20 02/27/20 14:37 15:27 16:52 19:00 Temp 98.2 98.1 98.2 98.1 Pulse 105 94 Resp 18 21 B/P (MAP) 112/56 (74) 111/56 (74) Pulse Ox 94 94 94 97 O2 Delivery Nasal Cannula Nasal Cannula Nasal Cannula Nasal Cannula O2 Flow Rate 3.0 3.0 3.0 3.0 6/26/20 6/26/20 6/26/20 6/26/20 20:00 20:55 22:00 23:00 Temp 97.4 97.4 Pulse 90 Resp 20 18 23 B/P (MAP) 125/58 (80) Pulse Ox 99 99 O2 Delivery Nasal Cannula Nasal Cannula Nasal Cannula O2 Flow Rate 3.0 3.0 3.0 02/28/20 02/28/20 02/28/20 02/28/20 03:00 07:00 08:00 08:35 Temp 97.5 98.6 97.5 98.6 Pulse 89 91 89 Resp 20 17 B/P (MAP) 108/54 (72) 118/55 (76) 118/55 Pulse Ox 100 96 O2 Delivery Nasal Cannula Nasal Cannula Nasal Cannula O2 Flow Rate 3.0 3.0 3.0 02/28/20 02/28/20 08:36 08:36 Pulse 93 93 B/P (MAP) 118/55 118/55 Intake and Output 02/27/20 02/27/20 02/28/20 15:00 23:00 07:00 Intake Total 550 ml 500 ml Balance 550 ml 500 ml Justicifation of Admission Dx: Justifications for Admission: Justification of Admission Dx: Yes RACH ROSALES MD Feb 28, 2020 11:46
[2020-02-28] MEDS ORDERED: guaiFENesin DM 200MG/20MG 10 ML SYRUP PO PRN (12:00)
[2020-02-28] MEDS ORDERED: MAGNESIUM SULFATE 1GM 100 ML IV ONE (12:00)
[2020-02-28] MEDS: PIPERACILLIN/TAZOBACTAM 3.375 GM in IV NORMAL SALINE 50ML 50 ML IV SCH ×3 (12:27→20:58)
--- NOTE | 2020-02-28 14:36 | PDOC ---
Renal-Progress Notes Subjective Notes Notes NO NEW COMPLAINTS History of Present Illness Hx of present illness STABLE Vitals Vitals Vital Signs Date Time Temp Pulse Resp B/P (MAP) Pulse Ox O2 Delivery O2 Flow Rate FiO2 02/28/20 11:00 98.3 87 18 99/51 (67) 97 Nasal Cannula 3.0 98.3 Weight Weight [ ] I.O. Intake and Output Intake and Output 02/28/20 07:00 Intake Total 1050 ml Balance 1050 ml Intake Oral 950 ml IV Total 100 ml # Voids 4 # Bowel Movements 1 Labs Labs Laboratory Tests Test 02/27/20 16:18 02/27/20 19:30 02/27/20 20:20 02/28/20 04:40 Glucose (Fingerstick) 182 mg/dL (70-99) 145 mg/dL (70-99) Heparin Anti-Xa Act, Unfractionated 0.43 IU/mL (0.30-0.70) 0.35 IU/mL (0.30-0.70) Prothrombin Time 20.0 SEC (11.7-14.0) Prothromb Time International Ratio 1.7 (0.8-1.1) Sodium Level 136 mmol/L (136-145) Potassium Level 3.3 mmol/L (3.5-5.1) Chloride Level 98 mmol/L (98-107) Carbon Dioxide Level 28 mmol/L (21-32) Anion Gap 10 (6-14) Blood Urea Nitrogen 21 mg/dL (7-20) Creatinine 1.6 mg/dL (0.6-1.0) Estimated GFR (Cockcroft-Gault) 31.8 Glucose Level 101 mg/dL (70-99) Calcium Level 8.1 mg/dL (8.5-10.1) Magnesium Level 1.8 mg/dL (1.8-2.4) Test 02/28/20 07:50 02/28/20 11:30 Glucose (Fingerstick) 127 mg/dL (70-99) 255 mg/dL (70-99) Review of Systems Constitutional: yes: weakness, alert, oriented Ears/Nose/Throat: Yes: no symptom reported Eyes: Yes: no symptom reported Pulmonary: Yes dyspnea Cardiovascular: Yes no symptom reported Gastrointestional: Yes: constipation Genitourinary: Yes: no symptom reported Musculoskeletal: Yes: no symptom reported Skin: Yes no symptom reported Psychiatric/Neurological: Yes: no symptom reported Endocrine: Yes: no symptom reported Physical Exam General Appearance: no apparent distress Skin: warm Respiratory: decreased breath sounds Heart: S1S2 Abdomen: soft, bowel sounds present Genitourinary: bladder flat Neurology: alert, oriented, follow commands Assessment Assessment IMP CKD STAGE 3-CR AT BASELINE OF 1.8-2.0-CR OF 1.6 TODAY HYPONATREMIA-MILD AND STABLE HYPOKALEMIA HX OF HTN HX OF DM II DYSPNEA-ACUTE HYPOXIC RESP FAILURE RECURRENT PULMONARY EMBOLI CM WITH EF OF 20-25% CAD WITH HX OF STENTS PLAN HER RENAL FXN IS STABLE CONT ANTICOAGULATION MAXIMIZE TX FOR CM AFTER LOAD REDUCTION WITH ENTRESTO AND LASIX CONT LASIX AND REPLACE K WILL FOLLOW COMPA GALLAGHER MD Feb 28, 2020 14:36
[2020-02-28 15:00] VITALS: BP 106/55
[2020-02-28] MEDS ORDERED: WARFARIN 7.5 MG TABLET. PO ONE (16:00)
[2020-02-28] MEDS: HYDROcodone/APAP 7.5/325MG 1 TAB TABLET PO PRN (16:44)
[2020-02-28 19:30] VITALS: BP 93/49
[2020-02-28] MEDS: MONTELUKAST SODIUM 10 MG TABLET. PO SCH (20:57)
[2020-02-28] MEDS: ATORVASTATIN CALCIUM 40 MG TABLET. PO SCH (20:57)
[2020-02-28] MEDS: INSULIN GLARGINE SYRINGE. SQ SCH (21:09)
[2020-02-28 23:43] VITALS: BP 114/57
[2020-02-29] MEDS: HEPARIN 25,000UTS/250ML PREMIX 250 ML IV PRN (00:30)
[2020-02-29] MEDS: PIPERACILLIN/TAZOBACTAM 3.375 GM in IV NORMAL SALINE 50ML 50 ML IV SCH ×4 (00:31→22:05)
[2020-02-29 03:50] VITALS: BP 119/64
[2020-02-29] MEDS: HYDROcodone/APAP 7.5/325MG 1 TAB TABLET PO PRN ×2 (04:11→16:31)
[2020-02-29] MEDS: LEVOTHYROXINE 100 MCG TABLET PO SCH (04:11)
[2020-02-29 04:33] LABS: BASO % 1 % (0-3); EOS # 0.2 x10^3/uL (0.0-0.7); EOS % 2 % (0-3); HEMATOCRIT 26.9 % (36.0-47.0); HEMOGLOBIN 8.6 g/dL (12.0-15.5); LYMPH # 1.6 x10^3/uL (1.0-4.8); LYMPH % 15 % (24-48); MEAN CORPUSCULAR HEMOGLOBIN 23 pg (25-35); MEAN CORPUSCULAR HGB CONC 32 g/dL (31-37); MEAN CORPUSCULAR VOLUME 72 fL (79-100); MONO % 10 % (0-9); NEUT # 7.6 x10^3/uL (1.8-7.7); NEUT % 73 % (31-73); PLATELET COUNT 310 x10^3/uL (140-400); RED BLOOD COUNT 3.74 x10^6/uL (3.50-5.40); WHITE BLOOD COUNT 10.5 x10^3/uL (4.0-11.0)
[2020-02-29 04:49] LABS: CALCIUM 8.3 mg/dL (8.5-10.1); CREATININE 1.7 mg/dL (0.6-1.0); GFR 29.6; POTASSIUM 3.5 mmol/L (3.5-5.1)
[2020-02-29 05:20] LABS: PROTHROMBIN TIME PATIENT 23.8 SEC (11.7-14.0)
[2020-02-29 07:00] VITALS: BP 103/52
--- NOTE | 2020-02-29 07:22 | NUR ---
Pharmacy Warfarin Dosing Note S:Pharmacy consulted to assist with anticoagulation therapy started 02/24/20 with target INR: 2 -3 O:VALENTINO SINGH is a 69 year old F with DVT/PE LABS: Last INR: 2.1 Last HGB: 8.6 Last HCT: 26.9 Last PLT: 310 Last dose of 7.5 mg given on 02/28/20 at 1643 Vitamin K given: N Drug Interaction Changes: Same Interacting Drug Ongoing Drug Interactions: amiodarone, citalopram, fenofibrate A:INR of 2.1 is within desired range. Target range for this patient is: 2 -3 P: Warfarin dose: 7.5 mg Today at 1600 Bridge Therapy: Heparin Therapeutic Next INR due 03/01/20 Pharmacy anticoagulation service will continue to follow. ART BARNARD RPH, 02/29/20 0712
[2020-02-29] MEDS: INSULIN LISPRO 300 UNITS/3 ML VIAL. SQ SCH ×6 (08:00→17:00)
[2020-02-29] MEDS: CITALOPRAM 20 MG TABLET. PO SCH (08:11)
[2020-02-29] MEDS: FERROUS SULFATE 325 MG TABLET. PO SCH ×4 (08:12→22:04)
[2020-02-29] MEDS: AMIODARONE HCL 200 MG TABLET. PO SCH (08:12)
[2020-02-29] MEDS: FENOFIBRATE,MICRONIZED 134 MG CAPSULE PO SCH (08:12)
[2020-02-29] MEDS: PANTOPRAZOLE 40 MG TABLET.DR. PO SCH ×2 (08:13→16:31)
[2020-02-29] MEDS: GABAPENTIN 100 MG CAPSULE. PO SCH ×2 (08:13→22:04)
[2020-02-29] MEDS: FUROSEMIDE 40 MG TABLET. PO SCH ×2 (08:13→15:17)
[2020-02-29] MEDS: ASPIRIN CHEWABLE 81 MG TABLET. PO SCH (08:13)
[2020-02-29] MEDS: ASCORBIC ACID 500 MG TABLET PO SCH ×2 (08:14→10:35)
[2020-02-29] MEDS: LACTOBACILLUS RHAMNOSUS GG 1 CAPSULE. PO SCH ×2 (08:14→22:04)
[2020-02-29] MEDS: DOCUSATE SODIUM 100 MG CAPSULE. PO SCH ×2 (08:14→22:04)
--- NOTE | 2020-02-29 08:37 | PDOC ---
PROGRESS NOTES Chief Complaint Chief Complaint A/P: Acute Hypoxic Resp Failure secondary to recurrent PE Chest pain; atypical. AMI ruled out. Acute respiratory failure with possible PE. Severe ICM/NICM: H/o VT with ICD discharge. DM2 HLD CADs/p PCI/LAD PAD: s/p percutaneous revascularization. CKD HTN H/o PE s/p IVC filter. Hypomagnesemia History of breast cancer with prior left mastectomy. Abnormal CXR with possible faint mild interstitial infiltrates rule out covid 19 PLAN full dose AC for now VQ with intermediated probability for PE Cardiac catheterization 10/2018 showed patent LAD stent and 80% stenosis in small-caliber diagonal branch, which was noted in prior cardiac catheterization and is being medically managed. EF at 20-25%. s/p AICD ([facility] A). Device check. On Entresto On Amiodarone for rhythm maintenance IVF filter removed 02/18/20. Has been off OAC Replace Mg Add imdur per cards continue lasix continue 02 apprec pulm and cards input dvt ppx: full dose ac History of Present Illness History of Present Illness Ms Rodriguez is a 69 yo obese patient with a BMI of 35. She has no significant tobacco history. She has cardiomyopathy with an EF of 20%-25%. She also has history of pulmonary embolism, which was in 2019. She was taken off her anticoagulation after her V/Q scan did not reveal any persistent pulmonary embolism. She also had an IVC filter, which the Hematology recommended to be removed. The patient's Dopplers were negative and followup V/Q scan was negative for PE. The patient underwent a removal of IVC filter on the 02/17. Returned to ED with shortness of breath. VQ scan consistent with right lower lobe mismatch, started on heparin and warfarin. 02/24: She is feeling wiped out, short of breath. No CP currently, still on 5L NCO2 currently. Afebrile. CT chest. Bilateral consolidative lung infiltrates which may represent pneumonia or aspiration pneumonitis. Moderate size left-sided pleural effusion and associated compressive atelectasis of the left lower lobe. Small right-sided pleural effusion. Right paratracheal lymphadenopathy which may be reactive in nature. Mild cardiomegaly. Calcified atheromatous disease of the coronary arteries. 35 mm fluid collection within the gallbladder fossa. Cholecystectomy clips are apparent. 02/25: She is still feeling poorly, weak. Iron 8. Cr down to 1.4. Afebrile. Based on CT results, starting antibiotics and iron today, lasix IV per cardiology. INR is 1, will need to adjust warfarin and ask REPLENISHER evaluate based on left upper lobe and right lower lobe and aspiration may be occurring. 02/26: INR 1.5. Cr 1.6. She doesn't feel much better, still with cough. Started on zosyn. Esophogram today. 02/27: K 3.3, Cr 1.6, INR 1.7. Mag 1.8. Noted on esophagram with no reflux. Her cough is more productive today. She feels a little bit stronger. Back on home O2 3 L nasal cannula. Afebrile. Was unable to work with PT yesterday due to weakness. On home 3 L of O2. INR 2.1. She feels she may need acute rehab on discharge. Imdur held due to low BP this morning. Vitals Vitals Vital Signs Date Time Temp Pulse Resp B/P (MAP) Pulse Ox O2 Delivery O2 Flow Rate FiO2 02/29/20 08:12 79 103/52 02/29/20 07:00 97.6 16 98 Nasal Cannula 3.0 97.6 Physical Exam General: Alert, Oriented X3, Cooperative, mild distress Heart: Regular rate Lungs: Other (decrease bs) Abdomen: Normal bowel sounds Extremities: No cyanosis Skin: No breakdown Labs LABS Laboratory Tests Test 02/28/20 11:30 02/28/20 16:55 02/28/20 20:50 02/29/20 03:45 Glucose (Fingerstick) 255 mg/dL (70-99) 193 mg/dL (70-99) 112 mg/dL (70-99) White Blood Count 10.5 x10^3/uL (4.0-11.0) Red Blood Count 3.74 x10^6/uL (3.50-5.40) Hemoglobin 8.6 g/dL (12.0-15.5) Hematocrit 26.9 % (36.0-47.0) Mean Corpuscular Volume 72 fL (79-100) Mean Corpuscular Hemoglobin 23 pg (25-35) Mean Corpuscular Hemoglobin Concent 32 g/dL (31-37) Red Cell Distribution Width 20.0 % (11.5-14.5) Platelet Count 310 x10^3/uL (140-400) Neutrophils (%) (Auto) 73 % (31-73) Lymphocytes (%) (Auto) 15 % (24-48) Monocytes (%) (Auto) 10 % (0-9) Eosinophils (%) (Auto) 2 % (0-3) Basophils (%) (Auto) 1 % (0-3) Neutrophils # (Auto) 7.6 x10^3/uL (1.8-7.7) Lymphocytes # (Auto) 1.6 x10^3/uL (1.0-4.8) Monocytes # (Auto) 1.0 x10^3/uL (0.0-1.1) Eosinophils # (Auto) 0.2 x10^3/uL (0.0-0.7) Basophils # (Auto) 0.0 x10^3/uL (0.0-0.2) Prothrombin Time 23.8 SEC (11.7-14.0) Prothromb Time International Ratio 2.1 (0.8-1.1) Heparin Anti-Xa Act, Unfractionated 0.58 IU/mL (0.30-0.70) Sodium Level 136 mmol/L (136-145) Potassium Level 3.5 mmol/L (3.5-5.1) Chloride Level 99 mmol/L (98-107) Carbon Dioxide Level 30 mmol/L (21-32) Anion Gap 7 (6-14) Blood Urea Nitrogen 22 mg/dL (7-20) Creatinine 1.7 mg/dL (0.6-1.0) Estimated GFR (Cockcroft-Gault) 29.6 Glucose Level 116 mg/dL (70-99) Calcium Level 8.3 mg/dL (8.5-10.1) Magnesium Level 2.2 mg/dL (1.8-2.4) Test 02/29/20 07:29 Glucose (Fingerstick) 131 mg/dL (70-99) Assessment and Plan Assessmemt and Plan Problems Medical Problems: (1) Chest pain Status: Acute (2) Elevated d-dimer Status: Acute (3) Suspected 2019 novel coronavirus infection Status: Acute Comment Review of Relevant I have reviewed the following items juliette (where applicable) has been applied. Labs Laboratory Tests Test 02/27/20 11:24 02/27/20 12:35 02/27/20 16:18 02/27/20 19:30 Glucose (Fingerstick) 235 mg/dL (70-99) 182 mg/dL (70-99) Prothrombin Time 17.3 SEC (11.7-14.0) Prothromb Time International Ratio 1.5 (0.8-1.1) Heparin Anti-Xa Act, Unfractionated 0.55 IU/mL (0.30-0.70) 0.43 IU/mL (0.30-0.70) Test 02/27/20 20:20 02/28/20 04:40 02/28/20 07:50 02/28/20 11:30 Glucose (Fingerstick) 145 mg/dL (70-99) 127 mg/dL (70-99) 255 mg/dL (70-99) Prothrombin Time 20.0 SEC (11.7-14.0) Prothromb Time International Ratio 1.7 (0.8-1.1) Heparin Anti-Xa Act, Unfractionated 0.35 IU/mL (0.30-0.70) Sodium Level 136 mmol/L (136-145) Potassium Level 3.3 mmol/L (3.5-5.1) Chloride Level 98 mmol/L (98-107) Carbon Dioxide Level 28 mmol/L (21-32) Anion Gap 10 (6-14) Blood Urea Nitrogen 21 mg/dL (7-20) Creatinine 1.6 mg/dL (0.6-1.0) Estimated GFR (Cockcroft-Gault) 31.8 Glucose Level 101 mg/dL (70-99) Calcium Level 8.1 mg/dL (8.5-10.1) Magnesium Level 1.8 mg/dL (1.8-2.4) Test 02/28/20 16:55 02/28/20 20:50 02/29/20 03:45 02/29/20 07:29 Glucose (Fingerstick) 193 mg/dL (70-99) 112 mg/dL (70-99) 131 mg/dL (70-99) White Blood Count 10.5 x10^3/uL (4.0-11.0) Red Blood Count 3.74 x10^6/uL (3.50-5.40) Hemoglobin 8.6 g/dL (12.0-15.5) Hematocrit 26.9 % (36.0-47.0) Mean Corpuscular Volume 72 fL (79-100) Mean Corpuscular Hemoglobin 23 pg (25-35) Mean Corpuscular Hemoglobin Concent 32 g/dL (31-37) Red Cell Distribution Width 20.0 % (11.5-14.5) Platelet Count 310 x10^3/uL (140-400) Neutrophils (%) (Auto) 73 % (31-73) Lymphocytes (%) (Auto) 15 % (24-48) Monocytes (%) (Auto) 10 % (0-9) Eosinophils (%) (Auto) 2 % (0-3) Basophils (%) (Auto) 1 % (0-3) Neutrophils # (Auto) 7.6 x10^3/uL (1.8-7.7) Lymphocytes # (Auto) 1.6 x10^3/uL (1.0-4.8) Monocytes # (Auto) 1.0 x10^3/uL (0.0-1.1) Eosinophils # (Auto) 0.2 x10^3/uL (0.0-0.7) Basophils # (Auto) 0.0 x10^3/uL (0.0-0.2) Prothrombin Time 23.8 SEC (11.7-14.0) Prothromb Time International Ratio 2.1 (0.8-1.1) Heparin Anti-Xa Act, Unfractionated 0.58 IU/mL (0.30-0.70) Sodium Level 136 mmol/L (136-145) Potassium Level 3.5 mmol/L (3.5-5.1) Chloride Level 99 mmol/L (98-107) Carbon Dioxide Level 30 mmol/L (21-32) Anion Gap 7 (6-14) Blood Urea Nitrogen 22 mg/dL (7-20) Creatinine 1.7 mg/dL (0.6-1.0) Estimated GFR (Cockcroft-Gault) 29.6 Glucose Level 116 mg/dL (70-99) Calcium Level 8.3 mg/dL (8.5-10.1) Magnesium Level 2.2 mg/dL (1.8-2.4) Laboratory Tests Test 02/28/20 11:30 02/28/20 16:55 02/28/20 20:50 02/29/20 03:45 Glucose (Fingerstick) 255 mg/dL (70-99) 193 mg/dL (70-99) 112 mg/dL (70-99) White Blood Count 10.5 x10^3/uL (4.0-11.0) Red Blood Count 3.74 x10^6/uL (3.50-5.40) Hemoglobin 8.6 g/dL (12.0-15.5) Hematocrit 26.9 % (36.0-47.0) Mean Corpuscular Volume 72 fL (79-100) Mean Corpuscular Hemoglobin 23 pg (25-35) Mean Corpuscular Hemoglobin Concent 32 g/dL (31-37) Red Cell Distribution Width 20.0 % (11.5-14.5) Platelet Count 310 x10^3/uL (140-400) Neutrophils (%) (Auto) 73 % (31-73) Lymphocytes (%) (Auto) 15 % (24-48) Monocytes (%) (Auto) 10 % (0-9) Eosinophils (%) (Auto) 2 % (0-3) Basophils (%) (Auto) 1 % (0-3) Neutrophils # (Auto) 7.6 x10^3/uL (1.8-7.7) Lymphocytes # (Auto) 1.6 x10^3/uL (1.0-4.8) Monocytes # (Auto) 1.0 x10^3/uL (0.0-1.1) Eosinophils # (Auto) 0.2 x10^3/uL (0.0-0.7) Basophils # (Auto) 0.0 x10^3/uL (0.0-0.2) Prothrombin Time 23.8 SEC (11.7-14.0) Prothromb Time International Ratio 2.1 (0.8-1.1) Heparin Anti-Xa Act, Unfractionated 0.58 IU/mL (0.30-0.70) Sodium Level 136 mmol/L (136-145) Potassium Level 3.5 mmol/L (3.5-5.1) Chloride Level 99 mmol/L (98-107) Carbon Dioxide Level 30 mmol/L (21-32) Anion Gap 7 (6-14) Blood Urea Nitrogen 22 mg/dL (7-20) Creatinine 1.7 mg/dL (0.6-1.0) Estimated GFR (Cockcroft-Gault) 29.6 Glucose Level 116 mg/dL (70-99) Calcium Level 8.3 mg/dL (8.5-10.1) Magnesium Level 2.2 mg/dL (1.8-2.4) Test 02/29/20 07:29 Glucose (Fingerstick) 131 mg/dL (70-99) Medications Current Medications Aspirin (Brandee Aspirin) 325 mg 1X ONCE PO ; Start 02/22/20 at 22:30; Stop 02/22/20 at 22:26; Status DC Acetaminophen (Tylenol) 500 mg 1X ONCE PO Last administered on 02/22/20at 22:34; Start 02/22/20 at 23:00; Stop 02/22/20 at 23:01; Status DC Ondansetron HCl (Zofran) 4 mg PRN Q8HRS PRN IV NAUSEA/VOMITING 1ST CHOICE; Start 02/23/20 at 00:45; Stop 02/24/20 at 00:44; Status DC Insulin Human Lispro (HumaLOG) 0-5 UNITS TIDWMEALS SQ Last administered on 02/27/20at 18:20; Start 02/23/20 at 08:00 Dextrose (Dextrose 50%-Water Syringe) 12.5 gm PRN Q15MIN PRN IV SEE COMMENTS; Start 02/23/20 at 00:45 Magnesium Sulfate 50 ml @ 25 mls/hr 1X ONCE IV Last administered on 02/23/20at 09:38; Start 02/23/20 at 09:15; Stop 02/23/20 at 11:14; Status DC Acetaminophen (Tylenol) 650 mg PRN Q6HRS PRN PO MILD PAIN / TEMP > 100.3'F Last administered on 02/25/20at 13:49; Start 02/23/20 at 12:45 Alprazolam (Xanax) 0.25 mg PRN BID PRN PO ANXIETY / AGITATION Last administered on 02/26/20at 20:59; Start 02/23/20 at 12:45 Amiodarone HCl (Cordarone) 200 mg DAILY PO Last administered on 6/28/20at 08:12; Start 02/23/20 at 14:00 Aspirin (Aspirin Chewable) 81 mg DAILY PO Last administered on 02/29/20 08:13; Start 02/23/20 at 14:00 Atorvastatin Calcium (Lipitor) 40 mg HS PO Last administered on 02/28/20 20:57; Start 02/23/20 at 21:00 Citalopram Hydrobromide (CeleXA) 20 mg DAILY08 PO Last administered on 02/29/20 08:11; Start 02/23/20 at 14:00 Docusate Sodium (Colace) 100 mg BID PO Last administered on 02/29/20 08:14; Start 02/23/20 at 14:00 Furosemide (Lasix) 20 mg BID92 PO Last administered on 02/25/20 13:50; Start 02/23/20 at 14:00; Stop 02/25/20 at 13:51; Status DC Gabapentin (Neurontin) 100 mg BID PO Last administered on 02/29/20 08:13; Start 02/23/20 at 14:00 Acetaminophen/ Hydrocodone Bitart (Lortab 7.5/325) 1 tab PRN Q4HRS PRN PO MODERATE PAIN Last administered on 02/29/20 04:11; Start 02/23/20 at 12:45 Levothyroxine Sodium (Synthroid) 100 mcg DAILY06 PO Last administered on 02/29/20 04:11; Start 02/23/20 at 14:00 Montelukast Sodium (Singulair) 10 mg HS PO Last administered on 02/28/20 20:57; Start 02/23/20 at 21:00 Pantoprazole Sodium (Protonix) 40 mg DAILYAC PO Last administered on 02/27/20 09:02; Start 02/23/20 at 16:30; Stop 02/27/20 at 14:50; Status DC Fenofibrate (Lofibra) 134 mg DAILY PO Last administered on 02/29/20 08:12; Start 02/23/20 at 14:00 Insulin Glargine (Lantus Syringe) 35 unit QHS SQ Last administered on 02/28/20 21:09; Start 02/23/20 at 21:00 Sacubitril/ Valsartan (Entresto 49 Mg-51 Mg) 1 tab DAILY PO Last administered on 02/28/20at 08:35; Start 02/23/20 at 14:00 Heparin Sodium (Porcine) (Heparin Sodium) 4,000 unit 1X ONCE IV Last administered on 02/23/20at 15:05; Start 02/23/20 at 14:30; Stop 02/23/20 at 14:31; Status DC Heparin Sodium/ Dextrose 250 ml @ 0 mls/hr CONT PRN IV PER PROTOCOL Last administered on 02/24/20at 04:34; Start 02/23/20 at 14:30; Stop 02/24/20 at 12:46; Status DC Heparin Sodium (Porcine) (Heparin Sodium) 2,750 unit PRN Q6HRS PRN IV FOR UFH L EVEL LESS THAN 0.2 Last administered on 02/23/20at 22:28; Start 02/23/20 at 14:30; Stop 02/24/20 at 12:46; Status DC Heparin Sodium (Porcine) (Heparin Sodium) 1,350 unit PRN Q6HRS PRN IV FOR UFH LEVEL 0.2 - 0.29; Start 02/23/20 at 14:30; Stop 02/24/20 at 12:46; Status DC Insulin Human Lispro (HumaLOG) 10 units 1X ONCE SQ Last administered on 02/23/20at 16:46; Start 02/23/20 at 16:45; Stop 02/23/20 at 16:46; Status DC Isosorbide Mononitrate (Imdur) 30 mg DAILY PO Last administered on 02/28/20at 08:36; Start 02/24/20 at 09:00 Info (Anti-Coagulation Monitoring By Pharmacy) 1 each PRN DAILY PRN MC SEE COMMENTS Last administered on 02/26/20at 12:38; Start 02/24/20 at 12:15 Insulin Human Regular (HumuLIN R VIAL) 35 unit TID SQ ; Start 02/24/20 at 14:00; Stop 02/24/20 at 12:23; Status DC Insulin Human Lispro (HumaLOG) 35 units TIDWMEALS SQ Last administered on 02/29/20at 08:28; Start 02/24/20 at 13:00 Apixaban (Eliquis) 10 mg BID PO ; Start 02/24/20 at 13:00; Stop 03/01/20 at 21:01; Status Cancel Apixaban (Eliquis) 5 mg BID PO ; Start 03/02/20 at 09:00; Status Cancel Warfarin Sodium (Coumadin Per Pharmacy) 1 each PRN DAILY PRN MC SEE COMMENTS Last administered on 02/29/20at 07:22; Start 02/24/20 at 13:15 Warfarin Sodium (Coumadin) 5 mg 1X WARF ONCE PO Last administered on 02/24/20at 15:03; Start 02/24/20 at 16:00; Stop 02/24/20 at 16:01; Status DC Heparin Sodium/ Dextrose 250 ml @ 0 mls/hr CONT PRN IV PER PROTOCOL Last administered on 02/29/20at 00:30; Start 02/24/20 at 13:45 Heparin Sodium (Porcine) (Heparin Sodium) 2,750 unit PRN Q6HRS PRN IV FOR UFH LEVEL LESS THAN 0.2 Last administered on 02/24/20at 16:34; Start 02/24/20 at 13:45 Heparin Sodium (Porcine) (Heparin Sodium) 1,350 unit PRN Q6HRS PRN IV FOR UFH LEVEL 0.2 - 0.29 Last administered on 02/27/20at 06:09; Start 02/24/20 at 13:45 Furosemide (Lasix) 40 mg BID92 PO Last administered on 02/29/20at 08:13; Start 02/25/20 at 14:00 Warfarin Sodium (Coumadin) 5 mg 1X WARF ONCE PO Last administered on 02/25/20at 17:14; Start 02/25/20 at 16:00; Stop 02/25/20 at 16:01; Status DC Piperacillin Sod/ Tazobactam Sod 4.5 gm/Sodium Chloride 100 ml @ 200 mls/hr 1X ONCE IV Last administered on 02/26/20at 12:34; Start 02/26/20 at 12:00; Stop 02/26/20 at 12:29; Status DC Piperacillin Sod/ Tazobactam Sod (Zosyn Per Pharmacy) 1 each PRN DAILY PRN MC SEE COMMENTS; Start 02/26/20 at 11:30 Iron Sucrose 200 mg/Sodium Chloride 110 ml @ 55 mls/hr 1X ONCE IV ; Start 02/26/20 at 12:00; Stop 02/26/20 at 15:27; Status DC Piperacillin Sod/ Tazobactam Sod 4.5 gm/Sodium Chloride 100 ml @ 200 mls/hr Q6HRS IV Last administered on 02/28/20at 06:18; Start 02/26/20 at 18:00; Stop 02/28/20 at 07:12; Status DC Warfarin Sodium (Coumadin) 7.5 mg 1X WARF ONCE PO Last administered on 02/26/20at 15:48; Start 02/26/20 at 16:00; Stop 02/26/20 at 16:01; Status DC Ferrous Sulfate (Feosol) 325 mg TIDWMEALHC PO Last administered on 02/29/20at 08:12; Start 02/26/20 at 17:00 Ascorbic Acid (Vitamin C) 500 mg DAILY PO Last administered on 02/29/20at 08:14; Start 02/27/20 at 09:00 Warfarin Sodium (Coumadin) 7.5 mg 1X WARF ONCE PO Last administered on 02/27/20at 18:13; Start 02/27/20 at 16:00; Stop 02/27/20 at 16:01; Status DC Lactobacillus Rhamnosus (Culturelle) 1 cap BID PO Last administered on 02/29/20at 08:14; Start 02/27/20 at 21:00 Barium Sulfate (Varibar Thin Liquid Apple) 148 gm 1X ONCE PO Last administered on 02/27/20at 13:45; Start 02/27/20 at 12:30; Stop 02/27/20 at 12:31; Status DC Barium Sulfate (Liquid E-Z Paque) 355 ml 1X ONCE PO Last administered on 02/27/20at 13:55; Start 02/27/20 at 13:00; Stop 02/27/20 at 13:01; Status DC Barium Sulfate (E-Z-Hd) 340 gm 1X ONCE PO ; Start 02/27/20 at 13:00; Stop 02/27/20 at 13:01; Status DC Simethicone/ Sodium Bicarb/ Citric Ac (E-Z-Gas) 1 packet 1X ONCE PO ; Start 02/27/20 at 13:00; Stop 02/27/20 at 13:01; Status DC Pantoprazole Sodium (Protonix) 40 mg BIDAC PO Last administered on 02/29/20at 08:13; Start 02/27/20 at 16:30 Warfarin Sodium (Coumadin) 7.5 mg 1X WARF ONCE PO Last administered on 02/28/20at 16:43; Start 02/28/20 at 16:00; Stop 02/28/20 at 16:01; Status DC Piperacillin Sod/ Tazobactam Sod 3.375 gm/Sodium Chloride 50 ml @ 100 mls/hr Q6HRS IV Last administered on 02/29/20at 00:31; Start 02/28/20 at 12:00 Potassium Chloride (Klor-Con) 40 meq 1X ONCE PO Last administered on 02/28/20at 08:35; Start 02/28/20 at 08:30; Stop 02/28/20 at 08:31; Status DC Magnesium Sulfate/ Dextrose 100 ml @ 100 mls/hr 1X ONCE IV Last administered on 02/28/20at 12:27; Start 02/28/20 at 12:00; Stop 02/28/20 at 12:59; Status DC Guaifenesin (Robitussin Dm) 10 ml PRN Q6HRS PRN PO COUGH; Start 02/28/20 at 12:00 Warfarin Sodium (Coumadin) 7.5 mg 1X WARF ONCE PO ; Start 02/29/20 at 16:00; Stop 02/29/20 at 16:01 Active Scripts Active Colace (Docusate Sodium) 100 Mg Capsule 1 Cap PO BID 30 Days Alprazolam 0.25 Mg Tablet 1 Tab PO BID PRN Reported Entresto 97 mg-103 mg Tablet (Sacubitril/Valsartan) 1 Each Tablet 0.5 Each PO DAILY Aspirin 81 Mg Tab.chew 81 Mg PO DAILY Citalopram Hbr (Citalopram Hydrobromide) 20 Mg Tablet 1 Tab PO DAILY08 Hydrocodone-Apap 7.5-325 (Hydrocodone Bit/Acetaminophen) 1 Tab Tablet 1 Tab PO Q4HRS PRN Furosemide 20 Mg Tablet 20 Mg PO BID Amiodarone Hcl 200 Mg Tablet 1 Tab PO DAILY Montelukast Sodium Tablet (Montelukast Sodium) 10 Mg Tablet 10 Mg PO HS Levothyroxine Sodium 100 Mcg Tablet 1 Tab PO DAILY Proair Hfa Inhaler (Albuterol Sulfate) 8.5 Gm Hfa.aer.ad 2 Puff IH PRN Q4-6HRS Tylenol (Acetaminophen) 325 Mg Tablet 650 Mg PO Fenofibrate (Fenofibrate Nanocrystallized) 145 Mg Tablet 1 Tab PO DAILY Humalog (Insulin Lispro) 100 Unit/1 Ml Vial 35 Unit SQ TID Lantus Solostar (Insulin Glargine,Hum.rec.anlog) 100 Unit/1 Ml Insuln.pen 35 Unit SQ HS Pantoprazole Sodium (Pantoprazole Sodium) 40 Mg Tablet.dr 40 Mg PO DAILY Atorvastatin Calcium 40 Mg Tablet 40 Mg PO HS Gabapentin (Gabapentin) 100 Mg Capsule 100 Mg PO BID Vitals/I & O Vital Sign - Last 24 Hours 02/28/20 02/28/20 02/28/20 02/28/20 11:00 15:00 16:44 17:44 Temp 98.3 97.9 98.3 97.9 Pulse 87 87 Resp 18 18 18 18 B/P (MAP) 99/51 (67) 106/55 (72) Pulse Ox 97 98 O2 Delivery Nasal Cannula Nasal Cannula Nasal Cannula Nasal Cannula O2 Flow Rate 3.0 3.0 3.0 3.0 02/28/20 02/28/20 02/28/20 02/29/20 19:30 20:00 23:43 03:50 Temp 98.2 98.2 98.5 98.2 98.2 98.5 Pulse 84 87 83 Resp 19 18 20 B/P (MAP) 93/49 (64) 114/57 (76) 119/64 (82) Pulse Ox 96 96 94 O2 Delivery Nasal Cannula Nasal Cannula Nasal Cannula Nasal Cannula O2 Flow Rate 3.0 3.0 3.0 3.0 02/29/20 02/29/20 02/29/20 02/29/20 04:11 05:11 07:00 08:12 Temp 97.6 97.6 Pulse 79 79 Resp 18 18 16 B/P (MAP) 103/52 (69) 103/52 Pulse Ox 94 98 O2 Delivery Nasal Cannula Nasal Cannula O2 Flow Rate 3.0 3.0 Intake and Output 02/28/20 02/28/20 02/29/20 15:00 23:00 07:00 Intake Total 500 ml 300 ml 440 ml Output Total 800 ml 200 ml Balance 500 ml -500 ml 240 ml GINA PATEL MD Feb 29, 2020 08:37
--- NOTE | 2020-02-29 08:42 | PDOC ---
PULMONARY PROGRESS NOTES Subjective Remains on 3 liters N/C oxygen, denies SOB,denies increase in cough feeling better today Vitals Vital Signs Date Time Temp Pulse Resp B/P (MAP) Pulse Ox O2 Delivery O2 Flow Rate FiO2 02/29/20 08:12 79 103/52 02/29/20 07:00 97.6 16 98 Nasal Cannula 3.0 97.6 ROS: No Nausea, No Chest Pain, No Abdominal Pain General: Alert, Oriented X4, No acute distress Lungs: Other (decrease bs) Cardiovascular: S1, S2 Abdomen: Soft, Other (obese) Extremities: Other (1+edema) Skin: Warm, Dry Labs Laboratory Tests Test 02/27/20 11:24 02/27/20 12:35 02/27/20 16:18 02/27/20 19:30 Glucose (Fingerstick) 235 mg/dL (70-99) 182 mg/dL (70-99) Prothrombin Time 17.3 SEC (11.7-14.0) Prothromb Time International Ratio 1.5 (0.8-1.1) Heparin Anti-Xa Act, Unfractionated 0.55 IU/mL (0.30-0.70) 0.43 IU/mL (0.30-0.70) Test 02/27/20 20:20 02/28/20 04:40 02/28/20 07:50 02/28/20 11:30 Glucose (Fingerstick) 145 mg/dL (70-99) 127 mg/dL (70-99) 255 mg/dL (70-99) Prothrombin Time 20.0 SEC (11.7-14.0) Prothromb Time International Ratio 1.7 (0.8-1.1) Heparin Anti-Xa Act, Unfractionated 0.35 IU/mL (0.30-0.70) Sodium Level 136 mmol/L (136-145) Potassium Level 3.3 mmol/L (3.5-5.1) Chloride Level 98 mmol/L (98-107) Carbon Dioxide Level 28 mmol/L (21-32) Anion Gap 10 (6-14) Blood Urea Nitrogen 21 mg/dL (7-20) Creatinine 1.6 mg/dL (0.6-1.0) Estimated GFR (Cockcroft-Gault) 31.8 Glucose Level 101 mg/dL (70-99) Calcium Level 8.1 mg/dL (8.5-10.1) Magnesium Level 1.8 mg/dL (1.8-2.4) Test 02/28/20 16:55 02/28/20 20:50 02/29/20 03:45 02/29/20 07:29 Glucose (Fingerstick) 193 mg/dL (70-99) 112 mg/dL (70-99) 131 mg/dL (70-99) White Blood Count 10.5 x10^3/uL (4.0-11.0) Red Blood Count 3.74 x10^6/uL (3.50-5.40) Hemoglobin 8.6 g/dL (12.0-15.5) Hematocrit 26.9 % (36.0-47.0) Mean Corpuscular Volume 72 fL (79-100) Mean Corpuscular Hemoglobin 23 pg (25-35) Mean Corpuscular Hemoglobin Concent 32 g/dL (31-37) Red Cell Distribution Width 20.0 % (11.5-14.5) Platelet Count 310 x10^3/uL (140-400) Neutrophils (%) (Auto) 73 % (31-73) Lymphocytes (%) (Auto) 15 % (24-48) Monocytes (%) (Auto) 10 % (0-9) Eosinophils (%) (Auto) 2 % (0-3) Basophils (%) (Auto) 1 % (0-3) Neutrophils # (Auto) 7.6 x10^3/uL (1.8-7.7) Lymphocytes # (Auto) 1.6 x10^3/uL (1.0-4.8) Monocytes # (Auto) 1.0 x10^3/uL (0.0-1.1) Eosinophils # (Auto) 0.2 x10^3/uL (0.0-0.7) Basophils # (Auto) 0.0 x10^3/uL (0.0-0.2) Prothrombin Time 23.8 SEC (11.7-14.0) Prothromb Time International Ratio 2.1 (0.8-1.1) Heparin Anti-Xa Act, Unfractionated 0.58 IU/mL (0.30-0.70) Sodium Level 136 mmol/L (136-145) Potassium Level 3.5 mmol/L (3.5-5.1) Chloride Level 99 mmol/L (98-107) Carbon Dioxide Level 30 mmol/L (21-32) Anion Gap 7 (6-14) Blood Urea Nitrogen 22 mg/dL (7-20) Creatinine 1.7 mg/dL (0.6-1.0) Estimated GFR (Cockcroft-Gault) 29.6 Glucose Level 116 mg/dL (70-99) Calcium Level 8.3 mg/dL (8.5-10.1) Magnesium Level 2.2 mg/dL (1.8-2.4) Laboratory Tests Test 02/28/20 11:30 02/28/20 16:55 02/28/20 20:50 02/29/20 03:45 Glucose (Fingerstick) 255 mg/dL (70-99) 193 mg/dL (70-99) 112 mg/dL (70-99) White Blood Count 10.5 x10^3/uL (4.0-11.0) Red Blood Count 3.74 x10^6/uL (3.50-5.40) Hemoglobin 8.6 g/dL (12.0-15.5) Hematocrit 26.9 % (36.0-47.0) Mean Corpuscular Volume 72 fL (79-100) Mean Corpuscular Hemoglobin 23 pg (25-35) Mean Corpuscular Hemoglobin Concent 32 g/dL (31-37) Red Cell Distribution Width 20.0 % (11.5-14.5) Platelet Count 310 x10^3/uL (140-400) Neutrophils (%) (Auto) 73 % (31-73) Lymphocytes (%) (Auto) 15 % (24-48) Monocytes (%) (Auto) 10 % (0-9) Eosinophils (%) (Auto) 2 % (0-3) Basophils (%) (Auto) 1 % (0-3) Neutrophils # (Auto) 7.6 x10^3/uL (1.8-7.7) Lymphocytes # (Auto) 1.6 x10^3/uL (1.0-4.8) Monocytes # (Auto) 1.0 x10^3/uL (0.0-1.1) Eosinophils # (Auto) 0.2 x10^3/uL (0.0-0.7) Basophils # (Auto) 0.0 x10^3/uL (0.0-0.2) Prothrombin Time 23.8 SEC (11.7-14.0) Prothromb Time International Ratio 2.1 (0.8-1.1) Heparin Anti-Xa Act, Unfractionated 0.58 IU/mL (0.30-0.70) Sodium Level 136 mmol/L (136-145) Potassium Level 3.5 mmol/L (3.5-5.1) Chloride Level 99 mmol/L (98-107) Carbon Dioxide Level 30 mmol/L (21-32) Anion Gap 7 (6-14) Blood Urea Nitrogen 22 mg/dL (7-20) Creatinine 1.7 mg/dL (0.6-1.0) Estimated GFR (Cockcroft-Gault) 29.6 Glucose Level 116 mg/dL (70-99) Calcium Level 8.3 mg/dL (8.5-10.1) Magnesium Level 2.2 mg/dL (1.8-2.4) Test 02/29/20 07:29 Glucose (Fingerstick) 131 mg/dL (70-99) Medications Active Scripts Medications Dose Route/Sig Max Daily Dose Days Date Category Entresto 97 mg-103 mg Tablet (Sacubitril/Valsartan) 1 Each Tablet 0.5 Each PO DAILY 02/18/20 Reported Aspirin 81 Mg Tab.chew 81 Mg PO DAILY 02/18/20 Reported Citalopram Hbr (Citalopram Hydrobromide) 20 Mg Tablet 1 Tab PO DAILY08 12/23/19 Reported Hydrocodone-Apap 7.5-325 (Hydrocodone Bit/Acetaminophen) 1 Tab Tablet 1 Tab PO Q4HRS PRN 12/23/19 Reported Furosemide 20 Mg Tablet 20 Mg PO BID 12/23/19 Reported Amiodarone Hcl 200 Mg Tablet 1 Tab PO DAILY 12/23/19 Reported Colace (Docusate Sodium) 100 Mg Capsule 1 Cap PO BID 30 10/14/19 Rx Alprazolam 0.25 Mg Tablet 1 Tab PO BID PRN 10/02/19 Rx Montelukast Sodium Tablet (Montelukast Sodium) 10 Mg Tablet 10 Mg PO HS 11/30/17 Reported Levothyroxine Sodium 100 Mcg Tablet 1 Tab PO DAILY 05/26/16 Reported Proair Hfa Inhaler (Albuterol Sulfate) 8.5 Gm Hfa.aer.ad 2 Puff IH PRN Q4-6HRS 05/20/15 Reported Tylenol (Acetaminophen) 325 Mg Tablet 650 Mg PO 05/14/15 Reported Fenofibrate (Fenofibrate Nanocrystallized) 145 Mg Tablet 1 Tab PO DAILY 05/14/15 Reported Humalog (Insulin Lispro) 100 Unit/1 Ml Vial 35 Unit SQ TID 04/08/14 Reported Lantus Solostar (Insulin Glargine,Hum.rec.anlog) 100 Unit/1 Ml Insuln.pen 35 Unit SQ HS 04/08/14 Reported Pantoprazole Sodium (Pantoprazole Sodium) 40 Mg Tablet.dr 40 Mg PO DAILY 04/08/14 Reported Atorvastatin Calcium 40 Mg Tablet 40 Mg PO HS 04/08/14 Reported Gabapentin (Gabapentin) 100 Mg Capsule 100 Mg PO BID 04/08/[address] chest IMPRESSION: Bilateral consolidative lung infiltrates which may represent pneumonia or aspiration pneumonitis. Impression . 1. Acute hypoxemic respiratory--improving 2. No significant tobacco history. 3. Cardiomyopathy with an ejection fraction of 20%-25% with possible mild congestive heart failure. She has severe global hypokinesis. She is status post stents. 4. 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 5. History of breast cancer with prior left mastectomy. 6. Abnormal CXR with possible faint mild interstitial infiltrates 7. CT no evidence of pulmonary embolus 8. CT with bilateral infiltrates left upper lobe right lower lobe, suspect infectious process, not typical of amiodarone induced lung injury 9. Bilateral pleural effusion Plan . Continue supplemental oxygen to keep sats above 92% Cont. ABX Follow cardiology recs-- new ECHO shows EF 20-25% Follow nephrology recs-- cr. stable Continue Anticoagulation --on coumadin Plan to Repeat CT chest in 8 weeks OOB as tolerated -- PT/ OT D/W KIRT MUNIZ MD Feb 29, 2020 08:42
[2020-02-29 11:00] VITALS: BP 131/57
[2020-02-29] MEDS: ISOSORBIDE MONONITRATE ER 30 MG TAB.ER.24H PO SCH (11:48)
[2020-02-29] MEDS: SACUBITRIL/VALSARTAN 49/51MG TABLET. PO SCH (11:48)
--- NOTE | 2020-02-29 11:55 | PDOC ---
Renal-Progress Notes Subjective Notes Notes SITTING UP AND FEELING WELL History of Present Illness Hx of present illness STABLE Vitals Vitals Vital Signs Date Time Temp Pulse Resp B/P (MAP) Pulse Ox O2 Delivery O2 Flow Rate FiO2 02/29/20 11:48 86 131/57 02/29/20 11:00 97.4 18 98 Nasal Cannula 3.0 97.4 Weight Weight [ ] I.O. Intake and Output Intake and Output 02/29/20 07:00 Intake Total 1240 ml Output Total 1000 ml Balance 240 ml Intake Oral 700 ml IV Total 100 ml Other 440 ml Output Urine Total 1000 ml # Bowel Movements 2 Labs Labs Laboratory Tests Test 02/28/20 16:55 02/28/20 20:50 02/29/20 03:45 02/29/20 07:29 Glucose (Fingerstick) 193 mg/dL (70-99) 112 mg/dL (70-99) 131 mg/dL (70-99) White Blood Count 10.5 x10^3/uL (4.0-11.0) Red Blood Count 3.74 x10^6/uL (3.50-5.40) Hemoglobin 8.6 g/dL (12.0-15.5) Hematocrit 26.9 % (36.0-47.0) Mean Corpuscular Volume 72 fL (79-100) Mean Corpuscular Hemoglobin 23 pg (25-35) Mean Corpuscular Hemoglobin Concent 32 g/dL (31-37) Red Cell Distribution Width 20.0 % (11.5-14.5) Platelet Count 310 x10^3/uL (140-400) Neutrophils (%) (Auto) 73 % (31-73) Lymphocytes (%) (Auto) 15 % (24-48) Monocytes (%) (Auto) 10 % (0-9) Eosinophils (%) (Auto) 2 % (0-3) Basophils (%) (Auto) 1 % (0-3) Neutrophils # (Auto) 7.6 x10^3/uL (1.8-7.7) Lymphocytes # (Auto) 1.6 x10^3/uL (1.0-4.8) Monocytes # (Auto) 1.0 x10^3/uL (0.0-1.1) Eosinophils # (Auto) 0.2 x10^3/uL (0.0-0.7) Basophils # (Auto) 0.0 x10^3/uL (0.0-0.2) Prothrombin Time 23.8 SEC (11.7-14.0) Prothromb Time International Ratio 2.1 (0.8-1.1) Heparin Anti-Xa Act, Unfractionated 0.58 IU/mL (0.30-0.70) Sodium Level 136 mmol/L (136-145) Potassium Level 3.5 mmol/L (3.5-5.1) Chloride Level 99 mmol/L (98-107) Carbon Dioxide Level 30 mmol/L (21-32) Anion Gap 7 (6-14) Blood Urea Nitrogen 22 mg/dL (7-20) Creatinine 1.7 mg/dL (0.6-1.0) Estimated GFR (Cockcroft-Gault) 29.6 Glucose Level 116 mg/dL (70-99) Calcium Level 8.3 mg/dL (8.5-10.1) Magnesium Level 2.2 mg/dL (1.8-2.4) Test 02/29/20 11:48 Glucose (Fingerstick) 209 mg/dL (70-99) Review of Systems Constitutional: yes: weakness, alert, oriented Ears/Nose/Throat: Yes: no symptom reported Eyes: Yes: no symptom reported Pulmonary: Yes dyspnea Cardiovascular: Yes no symptom reported Gastrointestional: Yes: constipation Genitourinary: Yes: no symptom reported Musculoskeletal: Yes: no symptom reported Skin: Yes no symptom reported Psychiatric/Neurological: Yes: no symptom reported Endocrine: Yes: no symptom reported Physical Exam General Appearance: no apparent distress Skin: warm Respiratory: decreased breath sounds Heart: S1S2 Abdomen: soft, bowel sounds present Genitourinary: bladder flat Neurology: alert, oriented, follow commands Assessment Assessment IMP CKD STAGE 3-CR AT BASELINE OF 1.8-2.0-CR OF 1.7 TODAY HYPONATREMIA-MILD AND STABLE HYPOKALEMIA HX OF HTN HX OF DM II DYSPNEA-ACUTE HYPOXIC RESP FAILURE RECURRENT PULMONARY EMBOLI CM WITH EF OF 20-25% CAD WITH HX OF STENTS PLAN HER RENAL FXN IS STABLE CONT ANTICOAGULATION MAXIMIZE TX FOR CM AFTER LOAD REDUCTION WITH ENTRESTO AND LASIX CONT LASIX AND REPLACE K WILL FOLLOW COMPA GALLAGHER MD Feb 29, 2020 11:55
--- NOTE | 2020-02-29 14:38 | PDOC ---
PROGRESS NOTES Subjective Subjective Patient seen and examined Objective Objective Vital Signs Date Time Temp Pulse Resp B/P (MAP) Pulse Ox O2 Delivery O2 Flow Rate FiO2 02/29/20 11:48 86 131/57 02/29/20 11:00 97.4 18 98 Nasal Cannula 3.0 97.4 Intake and Output 02/29/20 07:00 Intake Total 1240 ml Output Total 1000 ml Balance 240 ml Intake Oral 700 ml IV Total 100 ml Other 440 ml Output Urine Total 1000 ml # Bowel Movements 2 Physical Exam Abdomen: Normal bowel sounds Heart: Regular rate General: mild distress Lungs: Other (Mildly decreased breath sounds) Assessment Assessment Problems Medical Problems: (1) Chest pain Status: Acute (2) Elevated d-dimer Status: Acute (3) Suspected 2019 novel coronavirus infection Status: Acute Atypical CP: none further. Continue present medications CAD: recent LHC with patent stents. Clinically stable Acute respiratory failure with possible recurrent PE. VQ with intermediated probability for PE. Anticoagulation as above. Acute on chronic systolic CHF with severe ICM/NICM: EF at 20-25%. appears compensated H/o VT with ICD discharge. On Amiodarone for rhythm maintenance No ILD ok per pulmonary DM2/HLP: Continue current treatment PAD: s/p percutaneous revascularization. stable, no claudications CKD; nephrology following HTN: controlled H/o PE s/p IVC filter. This was removed 02/18/20. Arrhythmia: periods of PSVT and aberrant conduction. Improved today. s/p AICD ([facility] [facility] A) Comment Review of Relevant I have reviewed the following items juliette (where applicable) has been applied. Labs Laboratory Tests Test 02/27/20 16:18 02/27/20 19:30 02/27/20 20:20 02/28/20 04:40 Glucose (Fingerstick) 182 mg/dL (70-99) 145 mg/dL (70-99) Heparin Anti-Xa Act, Unfractionated 0.43 IU/mL (0.30-0.70) 0.35 IU/mL (0.30-0.70) Prothrombin Time 20.0 SEC (11.7-14.0) Prothromb Time International Ratio 1.7 (0.8-1.1) Sodium Level 136 mmol/L (136-145) Potassium Level 3.3 mmol/L (3.5-5.1) Chloride Level 98 mmol/L (98-107) Carbon Dioxide Level 28 mmol/L (21-32) Anion Gap 10 (6-14) Blood Urea Nitrogen 21 mg/dL (7-20) Creatinine 1.6 mg/dL (0.6-1.0) Estimated GFR (Cockcroft-Gault) 31.8 Glucose Level 101 mg/dL (70-99) Calcium Level 8.1 mg/dL (8.5-10.1) Magnesium Level 1.8 mg/dL (1.8-2.4) Test 02/28/20 07:50 02/28/20 11:30 02/28/20 16:55 02/28/20 20:50 Glucose (Fingerstick) 127 mg/dL (70-99) 255 mg/dL (70-99) 193 mg/dL (70-99) 112 mg/dL (70-99) Test 02/29/20 03:45 02/29/20 07:29 02/29/20 11:48 White Blood Count 10.5 x10^3/uL (4.0-11.0) Red Blood Count 3.74 x10^6/uL (3.50-5.40) Hemoglobin 8.6 g/dL (12.0-15.5) Hematocrit 26.9 % (36.0-47.0) Mean Corpuscular Volume 72 fL (79-100) Mean Corpuscular Hemoglobin 23 pg (25-35) Mean Corpuscular Hemoglobin Concent 32 g/dL (31-37) Red Cell Distribution Width 20.0 % (11.5-14.5) Platelet Count 310 x10^3/uL (140-400) Neutrophils (%) (Auto) 73 % (31-73) Lymphocytes (%) (Auto) 15 % (24-48) Monocytes (%) (Auto) 10 % (0-9) Eosinophils (%) (Auto) 2 % (0-3) Basophils (%) (Auto) 1 % (0-3) Neutrophils # (Auto) 7.6 x10^3/uL (1.8-7.7) Lymphocytes # (Auto) 1.6 x10^3/uL (1.0-4.8) Monocytes # (Auto) 1.0 x10^3/uL (0.0-1.1) Eosinophils # (Auto) 0.2 x10^3/uL (0.0-0.7) Basophils # (Auto) 0.0 x10^3/uL (0.0-0.2) Prothrombin Time 23.8 SEC (11.7-14.0) Prothromb Time International Ratio 2.1 (0.8-1.1) Heparin Anti-Xa Act, Unfractionated 0.58 IU/mL (0.30-0.70) Sodium Level 136 mmol/L (136-145) Potassium Level 3.5 mmol/L (3.5-5.1) Chloride Level 99 mmol/L (98-107) Carbon Dioxide Level 30 mmol/L (21-32) Anion Gap 7 (6-14) Blood Urea Nitrogen 22 mg/dL (7-20) Creatinine 1.7 mg/dL (0.6-1.0) Estimated GFR (Cockcroft-Gault) 29.6 Glucose Level 116 mg/dL (70-99) Calcium Level 8.3 mg/dL (8.5-10.1) Magnesium Level 2.2 mg/dL (1.8-2.4) Glucose (Fingerstick) 131 mg/dL (70-99) 209 mg/dL (70-99) Laboratory Tests Test 02/28/20 16:55 02/28/20 20:50 02/29/20 03:45 02/29/20 07:29 Glucose (Fingerstick) 193 mg/dL (70-99) 112 mg/dL (70-99) 131 mg/dL (70-99) White Blood Count 10.5 x10^3/uL (4.0-11.0) Red Blood Count 3.74 x10^6/uL (3.50-5.40) Hemoglobin 8.6 g/dL (12.0-15.5) Hematocrit 26.9 % (36.0-47.0) Mean Corpuscular Volume 72 fL (79-100) Mean Corpuscular Hemoglobin 23 pg (25-35) Mean Corpuscular Hemoglobin Concent 32 g/dL (31-37) Red Cell Distribution Width 20.0 % (11.5-14.5) Platelet Count 310 x10^3/uL (140-400) Neutrophils (%) (Auto) 73 % (31-73) Lymphocytes (%) (Auto) 15 % (24-48) Monocytes (%) (Auto) 10 % (0-9) Eosinophils (%) (Auto) 2 % (0-3) Basophils (%) (Auto) 1 % (0-3) Neutrophils # (Auto) 7.6 x10^3/uL (1.8-7.7) Lymphocytes # (Auto) 1.6 x10^3/uL (1.0-4.8) Monocytes # (Auto) 1.0 x10^3/uL (0.0-1.1) Eosinophils # (Auto) 0.2 x10^3/uL (0.0-0.7) Basophils # (Auto) 0.0 x10^3/uL (0.0-0.2) Prothrombin Time 23.8 SEC (11.7-14.0) Prothromb Time International Ratio 2.1 (0.8-1.1) Heparin Anti-Xa Act, Unfractionated 0.58 IU/mL (0.30-0.70) Sodium Level 136 mmol/L (136-145) Potassium Level 3.5 mmol/L (3.5-5.1) Chloride Level 99 mmol/L (98-107) Carbon Dioxide Level 30 mmol/L (21-32) Anion Gap 7 (6-14) Blood Urea Nitrogen 22 mg/dL (7-20) Creatinine 1.7 mg/dL (0.6-1.0) Estimated GFR (Cockcroft-Gault) 29.6 Glucose Level 116 mg/dL (70-99) Calcium Level 8.3 mg/dL (8.5-10.1) Magnesium Level 2.2 mg/dL (1.8-2.4) Test 02/29/20 11:48 Glucose (Fingerstick) 209 mg/dL (70-99) Medications Current Medications Aspirin (Brandee Aspirin) 325 mg 1X ONCE PO ; Start 02/22/20 at 22:30; Stop 02/22/20 at 22:26; Status DC Acetaminophen (Tylenol) 500 mg 1X ONCE PO Last administered on 02/22/20at 22:34; Start 02/22/20 at 23:00; Stop 02/22/20 at 23:01; Status DC Ondansetron HCl (Zofran) 4 mg PRN Q8HRS PRN IV NAUSEA/VOMITING 1ST CHOICE; Start 02/23/20 at 00:45; Stop 02/24/20 at 00:44; Status DC Insulin Human Lispro (HumaLOG) 0-5 UNITS TIDWMEALS SQ Last administered on 02/27/20at 18:20; Start 02/23/20 at 08:00 Dextrose (Dextrose 50%-Water Syringe) 12.5 gm PRN Q15MIN PRN IV SEE COMMENTS; Start 02/23/20 at 00:45 Magnesium Sulfate 50 ml @ 25 mls/hr 1X ONCE IV Last administered on 02/23/20at 09:38; Start 02/23/20 at 09:15; Stop 02/23/20 at 11:14; Status DC Acetaminophen (Tylenol) 650 mg PRN Q6HRS PRN PO MILD PAIN / TEMP > 100.3'F Last administered on 02/25/20at 13:49; Start 02/23/20 at 12:45 Alprazolam (Xanax) 0.25 mg PRN BID PRN PO ANXIETY / AGITATION Last administered on 02/26/20at 20:59; Start 02/23/20 at 12:45 Amiodarone HCl (Cordarone) 200 mg DAILY PO Last administered on 02/29/20 08:12; Start 02/23/20 at 14:00 Aspirin (Aspirin Chewable) 81 mg DAILY PO Last administered on 02/29/20 08:13; Start 02/23/20 at 14:00 Atorvastatin Calcium (Lipitor) 40 mg HS PO Last administered on 02/28/20at 20:57; Start 02/23/20 at 21:00 Citalopram Hydrobromide (CeleXA) 20 mg DAILY08 PO Last administered on 02/29/20 08:11; Start 02/23/20 at 14:00 Docusate Sodium (Colace) 100 mg BID PO Last administered on 02/29/20 08:14; Start 02/23/20 at 14:00 Furosemide (Lasix) 20 mg BID92 PO Last administered on 02/25/20 13:50; Start 02/23/20 at 14:00; Stop 02/25/20 at 13:51; Status DC Gabapentin (Neurontin) 100 mg BID PO Last administered on 02/29/20 08:13; Start 02/23/20 at 14:00 Acetaminophen/ Hydrocodone Bitart (Lortab 7.5/325) 1 tab PRN Q4HRS PRN PO MODERATE PAIN Last administered on 02/29/20 04:11; Start 02/23/20 at 12:45 Levothyroxine Sodium (Synthroid) 100 mcg DAILY06 PO Last administered on 02/29/20 04:11; Start 02/23/20 at 14:00 Montelukast Sodium (Singulair) 10 mg HS PO Last administered on 02/28/20at 20:57; Start 02/23/20 at 21:00 Pantoprazole Sodium (Protonix) 40 mg DAILYAC PO Last administered on 02/27/20 09:02; Start 02/23/20 at 16:30; Stop 02/27/20 at 14:50; Status DC Fenofibrate (Lofibra) 134 mg DAILY PO Last administered on 02/29/20 08:12; Start 02/23/20 at 14:00 Insulin Glargine (Lantus Syringe) 35 unit QHS SQ Last administered on 02/28/20 21:09; Start 02/23/20 at 21:00 Sacubitril/ Valsartan (Entresto 49 Mg-51 Mg) 1 tab DAILY PO Last administered on 02/29/20 11:48; Start 02/23/20 at 14:00 Heparin Sodium (Porcine) (Heparin Sodium) 4,000 unit 1X ONCE IV Last administered on 02/23/20at 15:05; Start 02/23/20 at 14:30; Stop 02/23/20 at 14:31; Status DC Heparin Sodium/ Dextrose 250 ml @ 0 mls/hr CONT PRN IV PER PROTOCOL Last administered on 02/24/20 04:34; Start 02/23/20 at 14:30; Stop 02/24/20 at 12:46; Status DC Heparin Sodium (Porcine) (Heparin Sodium) 2,750 unit PRN Q6HRS PRN IV FOR UFH LEVEL LESS THAN 0.2 Last administered on 02/23/20at 22:28; Start 02/23/20 at 14:30; Stop 02/24/20 at 12:46; Status DC Heparin Sodium (Porcine) (Heparin Sodium) 1,350 unit PRN Q6HRS PRN IV FOR UFH LEVEL 0.2 - 0.29; Start 02/23/20 at 14:30; Stop 02/24/20 at 12:46; Status DC Insulin Human Lispro (HumaLOG) 10 units 1X ONCE SQ Last administered on 02/23/20at 16:46; Start 02/23/20 at 16:45; Stop 02/23/20 at 16:46; Status DC Isosorbide Mononitrate (Imdur) 30 mg DAILY PO Last administered on 02/29/20at 11:48; Start 02/24/20 at 09:00 Info (Anti-Coagulation Monitoring By Pharmacy) 1 each PRN DAILY PRN MC SEE COMMENTS Last administered on 02/26/20at 12:38; Start 02/24/20 at 12:15; Stop 02/29/20 at 10:53; Status DC Insulin Human Regular (HumuLIN R VIAL) 35 unit TID SQ ; Start 02/24/20 at 14:00; Stop 02/24/20 at 12:23; Status DC Insulin Human Lispro (HumaLOG) 35 units TIDWMEALS SQ Last administered on 02/29/20at 12:26; Start 02/24/20 at 13:00 Apixaban (Eliquis) 10 mg BID PO ; Start 02/24/20 at 13:00; Stop 03/01/20 at 21:01; Status Cancel Apixaban (Eliquis) 5 mg BID PO ; Start 03/02/20 at 09:00; Status Cancel Warfarin Sodium (Coumadin Per Pharmacy) 1 each PRN DAILY PRN MC SEE COMMENTS Last administered on 02/29/20at 07:22; Start 02/24/20 at 13:15 Warfarin Sodium (Coumadin) 5 mg 1X WARF ONCE PO Last administered on 02/24/20at 15:03; Start 02/24/20 at 16:00; Stop 02/24/20 at 16:01; Status DC Heparin Sodium/ Dextrose 250 ml @ 0 mls/hr CONT PRN IV PER PROTOCOL Last administered on 02/29/20at 00:30; Start 02/24/20 at 13:45; Stop 02/29/20 at 09:58; Status DC Heparin Sodium (Porcine) (Heparin Sodium) 2,750 unit PRN Q6HRS PRN IV FOR UFH LEVEL LESS THAN 0.2 Last administered on 02/24/20at 16:34; Start 02/24/20 at 13:45; Stop 02/29/20 at 09:58; Status DC Heparin Sodium (Porcine) (Heparin Sodium) 1,350 unit PRN Q6HRS PRN IV FOR UFH LEVEL 0.2 - 0.29 Last administered on 02/27/20at 06:09; Start 02/24/20 at 13:45; Stop 02/29/20 at 09:58; Status DC Furosemide (Lasix) 40 mg BID92 PO Last administered on 02/29/20at 08:13; Start 02/25/20 at 14:00 Warfarin Sodium (Coumadin) 5 mg 1X WARF ONCE PO Last administered on 02/25/20at 17:14; Start 02/25/20 at 16:00; Stop 02/25/20 at 16:01; Status DC Piperacillin Sod/ Tazobactam Sod 4.5 gm/Sodium Chloride 100 ml @ 200 mls/hr 1X ONCE IV Last administered on 02/26/20at 12:34; Start 02/26/20 at 12:00; Stop 02/26/20 at 12:29; Status DC Piperacillin Sod/ Tazobactam Sod (Zosyn Per Pharmacy) 1 each PRN DAILY PRN MC SEE COMMENTS; Start 02/26/20 at 11:30 Iron Sucrose 200 mg/Sodium Chloride 110 ml @ 55 mls/hr 1X ONCE IV ; Start 02/26/20 at 12:00; Stop 02/26/20 at 15:27; Status DC Piperacillin Sod/ Tazobactam Sod 4.5 gm/Sodium Chloride 100 ml @ 200 mls/hr Q6HRS IV Last administered on 02/28/20at 06:18; Start 02/26/20 at 18:00; Stop 02/28/20 at 07:12; Status DC Warfarin Sodium (Coumadin) 7.5 mg 1X WARF ONCE PO Last administered on 02/26/20at 15:48; Start 02/26/20 at 16:00; Stop 02/26/20 at 16:01; Status DC Ferrous Sulfate (Feosol) 325 mg TIDWMEALHC PO Last administered on 02/29/20at 12:23; Start 02/26/20 at 17:00 Ascorbic Acid (Vitamin C) 500 mg DAILY PO Last administered on 02/28/20at 08:36; Start 02/27/20 at 09:00 Warfarin Sodium (Coumadin) 7.5 mg 1X WARF ONCE PO Last administered on 02/27/20at 18:13; Start 02/27/20 at 16:00; Stop 02/27/20 at 16:01; Status DC Lactobacillus Rhamnosus (Culturelle) 1 cap BID PO Last administered on 02/29/20at 08:14; Start 02/27/20 at 21:00 Barium Sulfate (Varibar Thin Liquid Apple) 148 gm 1X ONCE PO Last administered on 02/27/20at 13:45; Start 02/27/20 at 12:30; Stop 02/27/20 at 12:31; Status DC Barium Sulfate (Liquid E-Z Paque) 355 ml 1X ONCE PO Last administered on 02/27/20at 13:55; Start 02/27/20 at 13:00; Stop 02/27/20 at 13:01; Status DC Barium Sulfate (E-Z-Hd) 340 gm 1X ONCE PO ; Start 02/27/20 at 13:00; Stop 02/27/20 at 13:01; Status DC Simethicone/ Sodium Bicarb/ Citric Ac (E-Z-Gas) 1 packet 1X ONCE PO ; Start 02/27/20 at 13:00; Stop 02/27/20 at 13:01; Status DC Pantoprazole Sodium (Protonix) 40 mg BIDAC PO Last administered on 02/29/20at 08:13; Start 02/27/20 at 16:30 Warfarin Sodium (Coumadin) 7.5 mg 1X WARF ONCE PO Last administered on 02/28/20at 16:43; Start 02/28/20 at 16:00; Stop 02/28/20 at 16:01; Status DC Piperacillin Sod/ Tazobactam Sod 3.375 gm/Sodium Chloride 50 ml @ 100 mls/hr Q6HRS IV Last administered on 02/29/20at 12:25; Start 02/28/20 at 12:00 Potassium Chloride (Klor-Con) 40 meq 1X ONCE PO Last administered on 02/28/20at 08:35; Start 02/28/20 at 08:30; Stop 02/28/20 at 08:31; Status DC Magnesium Sulfate/ Dextrose 100 ml @ 100 mls/hr 1X ONCE IV Last administered on 02/28/20at 12:27; Start 02/28/20 at 12:00; Stop 02/28/20 at 12:59; Status DC Guaifenesin (Robitussin Dm) 10 ml PRN Q6HRS PRN PO COUGH; Start 02/28/20 at 12:00 Warfarin Sodium (Coumadin) 7.5 mg 1X WARF ONCE PO ; Start 02/29/20 at 16:00; Stop 02/29/20 at 16:01 Active Scripts Active Colace (Docusate Sodium) 100 Mg Capsule 1 Cap PO BID 30 Days Alprazolam 0.25 Mg Tablet 1 Tab PO BID PRN Reported Entresto 97 mg-103 mg Tablet (Sacubitril/Valsartan) 1 Each Tablet 0.5 Each PO DAILY Aspirin 81 Mg Tab.chew 81 Mg PO DAILY Citalopram Hbr (Citalopram Hydrobromide) 20 Mg Tablet 1 Tab PO DAILY08 Hydrocodone-Apap 7.5-325 (Hydrocodone Bit/Acetaminophen) 1 Tab Tablet 1 Tab PO Q4HRS PRN Furosemide 20 Mg Tablet 20 Mg PO BID Amiodarone Hcl 200 Mg Tablet 1 Tab PO DAILY Montelukast Sodium Tablet (Montelukast Sodium) 10 Mg Tablet 10 Mg PO HS Levothyroxine Sodium 100 Mcg Tablet 1 Tab PO DAILY Proair Hfa Inhaler (Albuterol Sulfate) 8.5 Gm Hfa.aer.ad 2 Puff IH PRN Q4-6HRS Tylenol (Acetaminophen) 325 Mg Tablet 650 Mg PO Fenofibrate (Fenofibrate Nanocrystallized) 145 Mg Tablet 1 Tab PO DAILY Humalog (Insulin Lispro) 100 Unit/1 Ml Vial 35 Unit SQ TID Lantus Solostar (Insulin Glargine,Hum.rec.anlog) 100 Unit/1 Ml Insuln.pen 35 Unit SQ HS Pantoprazole Sodium (Pantoprazole Sodium) 40 Mg Tablet.dr 40 Mg PO DAILY Atorvastatin Calcium 40 Mg Tablet 40 Mg PO HS Gabapentin (Gabapentin) 100 Mg Capsule 100 Mg PO BID Vitals/I & O Vital Sign - Last 24 Hours 02/28/20 02/28/20 02/28/20 02/28/20 15:00 16:44 17:44 19:30 Temp 97.9 98.2 97.9 98.2 Pulse 87 84 Resp 18 18 19 B/P (MAP) 106/55 (72) 93/49 (64) Pulse Ox 98 96 O2 Delivery Nasal Cannula Nasal Cannula Nasal Cannula Nasal Cannula O2 Flow Rate 3.0 3.0 3.0 3.0 02/28/20 02/28/20 02/29/20 02/29/20 20:00 23:43 03:50 04:11 Temp 98.2 98.5 98.2 98.5 Pulse 87 83 Resp 18 B/P (MAP) 114/57 (76) 119/64 (82) Pulse Ox 96 94 O2 Delivery Nasal Cannula Nasal Cannula Nasal Cannula O2 Flow Rate 3.0 3.0 3.0 02/29/20 02/29/20 02/29/20 02/29/20 05:11 07:00 07:50 08:12 Temp 97.6 97.6 Pulse 79 79 Resp 16 B/P (MAP) 103/52 (69) 103/52 Pulse Ox 94 98 O2 Delivery Nasal Cannula Nasal Cannula Nasal Cannula O2 Flow Rate 3.0 3.0 3.0 02/29/20 02/29/20 02/29/20 11:00 11:48 11:48 Temp 97.4 97.4 Pulse 86 86 86 Resp 18 B/P (MAP) 131/57 (81) 131/57 131/57 Pulse Ox 98 O2 Delivery Nasal Cannula O2 Flow Rate 3.0 Intake and Output 02/28/20 02/28/20 02/29/20 15:00 23:00 07:00 Intake Total 500 ml 300 ml 440 ml Output Total 800 ml 200 ml Balance 500 ml -500 ml 240 ml Justicifation of Admission Dx: Justifications for Admission: Justification of Admission Dx: Yes RACH ROSALES MD Feb 29, 2020 14:38
[2020-02-29 15:23] VITALS: BP 107/48
[2020-02-29] MEDS ORDERED: WARFARIN 7.5 MG TABLET. PO ONE (16:00)
[2020-02-29] MEDS: ALPRAZolam 0.25 MG TABLET PO PRN (19:05)
[2020-02-29 19:45] VITALS: BP 117/57
[2020-02-29] MEDS: ATORVASTATIN CALCIUM 40 MG TABLET. PO SCH (22:04)
[2020-02-29] MEDS: MONTELUKAST SODIUM 10 MG TABLET. PO SCH (22:04)
[2020-02-29] MEDS: INSULIN GLARGINE SYRINGE. SQ SCH (22:11)
[2020-02-29 22:45] VITALS: BP 121/57
[2020-03-01] VITALS (8 sets, daily range): BP systolic 97–126; BP diastolic 50–65
[2020-03-01 05:55] LABS: CREATININE 1.5 mg/dL (0.6-1.0); GFR 34.2; POTASSIUM 3.7 mmol/L (3.5-5.1)
[2020-03-01] MEDS: LEVOTHYROXINE 100 MCG TABLET PO SCH (05:55)
[2020-03-01] MEDS: PIPERACILLIN/TAZOBACTAM 3.375 GM in IV NORMAL SALINE 50ML 50 ML IV SCH ×4 (05:56→23:00)
[2020-03-01 06:02] LABS: PROTHROMBIN TIME PATIENT 29.4 SEC (11.7-14.0)
[2020-03-01] MEDS: INSULIN LISPRO 300 UNITS/3 ML VIAL. SQ SCH ×6 (08:00→17:00)
[2020-03-01] MEDS: DOCUSATE SODIUM 100 MG CAPSULE. PO SCH ×2 (08:33→20:38)
[2020-03-01] MEDS: LACTOBACILLUS RHAMNOSUS GG 1 CAPSULE. PO SCH ×2 (08:33→20:38)
[2020-03-01] MEDS: FENOFIBRATE,MICRONIZED 134 MG CAPSULE PO SCH (08:33)
[2020-03-01] MEDS: FERROUS SULFATE 325 MG TABLET. PO SCH ×4 (08:33→20:38)
[2020-03-01] MEDS: AMIODARONE HCL 200 MG TABLET. PO SCH (08:34)
[2020-03-01] MEDS: CITALOPRAM 20 MG TABLET. PO SCH (08:34)
[2020-03-01] MEDS: ASPIRIN CHEWABLE 81 MG TABLET. PO SCH (08:34)
[2020-03-01] MEDS: PANTOPRAZOLE 40 MG TABLET.DR. PO SCH ×2 (08:35→16:29)
[2020-03-01] MEDS: GABAPENTIN 100 MG CAPSULE. PO SCH ×2 (08:35→20:39)
[2020-03-01] MEDS: ASCORBIC ACID 500 MG TABLET PO SCH (08:36)
--- NOTE | 2020-03-01 09:57 | PDOC ---
PROGRESS NOTES Chief Complaint Chief Complaint impression Acute Hypoxic Resp Failure secondary to recurrent PE Chest pain; atypical. AMI ruled out. Acute respiratory failure with possible PE. Stable multifocal infiltrate and small left pleural effusion, better characterized on the CT performed 02/25/2020. Bilateral consolidative lung infiltrates which may represent pneumonia or aspiration pneumonitis. Moderate size left-sided pleural effusion and associated compressive BY CT CHEST atelectasis of the left lower lobe. Small right-sided pleural effusion. Severe ICM/NICM: Acute on chronic systolic CHF with severe ICM/NICM: EF at 20-25%. appears compensated H/o VT with ICD discharge. On Amiodarone H/o VT with ICD discharge. DM2 HLD CADs/p PCI/LAD PAD: s/p percutaneous revascularization. CKD HTN H/o PE s/p IVC filter. Hypomagnesemia MICROCYTIC ANEMIA History of breast cancer with prior left mastectomy. Abnormal CXR with possible faint mild interstitial infiltrates rule out covid 19 PLAN full dose AC FE PANEL VQ with intermediated probability for PE Cardiac catheterization 10/2018 showed patent LAD stent and 80% stenosis in small-caliber diagonal branch, which was noted in prior cardiac catheterization and is being medically managed. EF at 20-25%. s/p AICD ([employer] [place] A). Device check. On Entresto On Amiodarone for rhythm maintenance IVF filter removed 02/18/20. Has been off OAC Replace Mg Add imdur per cards continue lasix continue 02 apprec pulm and cards input dvt ppx: full dose ac NEPHROLOGY FOLLOWING CONT IV ZOSYN D/W RN History of Present Illness History of Present Illness Ms Rodriguez is a 69 yo obese patient with a BMI of 35. She has no significant tobacco history. She has cardiomyopathy with an EF of 20%-25%. She also has history of pulmonary embolism, which was in 2019. She was taken off her anticoagulation after her V/Q scan did not reveal any persistent pulmonary embolism. She also had an IVC filter, which the Hematology recommended to be removed. The patient's Dopplers were negative and followup V/Q scan was ne gative for PE. The patient underwent a removal of IVC filter on the 02/17. Returned to ED with shortness of breath. VQ scan consistent with right lower lobe mismatch, started on heparin and warfarin. 6/24: She is feeling wiped out, short of breath. No CP currently, still on 5L NCO2 currently. Afebrile. CT chest. Bilateral consolidative lung infiltrates which may represent pneumonia or aspiration pneumonitis. Moderate size left-sided pleural effusion and associated compressive atelectasis of the left lower lobe. Small right-sided pleural effusion. Right paratracheal lymphadenopathy which may be reactive in nature. Mild cardiomegaly. Calcified atheromatous disease of the coronary arteries. 35 mm fluid collection within the gallbladder fossa. Cholecystectomy clips are apparent. 02/25: She is still feeling poorly, weak. Iron 8. Cr down to 1.4. Afebrile. Based on CT results, starting antibiotics and iron today, lasix IV per cardiology. INR is 1, will need to adjust warfarin and ask [employer] evaluate based on left upper lobe and right lower lobe and aspiration may be occurring. 02/26: INR 1.5. Cr 1.6. She doesn't feel much better, still with cough. Started on zosyn. Esophogram today. 02/27: K 3.3, Cr 1.6, INR 1.7. Mag 1.8. Noted on esophagram with no reflux. Her cough is more productive today. She feels a little bit stronger. Back on home O2 3 L nasal cannula. Afebrile. Was unable to work with PT yesterday due to weakness. On home 3 L of O2. INR 2.1. She feels she may need acute rehab on discharge. Imdur held due to low BP this morning. Vitals Vitals Vital Signs Date Time Temp Pulse Resp B/P (MAP) Pulse Ox O2 Delivery O2 Flow Rate FiO2 03/01/20 08:34 88 118/54 03/01/20 08:00 Nasal Cannula 3.0 03/01/20 07:00 97.9 20 95 97.9 Physical Exam General: Alert, Oriented X3, Cooperative, mild distress Heart: Regular rate Lungs: Clear, Other (decrease bs) Abdomen: Normal bowel sounds, Soft Extremities: No cyanosis Skin: No breakdown Labs LABS PQRS compliance Statement One or more of the following individualized dose reduction techniques were utilized for this study: 1. Automated exposure control 2. Adjustment of the mA and/or kV according to patient size 3. Use of iterative reconstruction technique COMPARISON: No previous chest CT available. FINDINGS: Right paratracheal lymph node is seen measuring 16 mm. The left breast is surgically absent. No axillary lymphadenopathy is evident. No focal aneurysmal dilatation of the thoracic aorta is seen. The heart size is mildly enlarged. No pericardial effusion is seen. Calcified atheromatous disease of the coronary arteries is seen. Small right-sided pleural effusion and moderate size left-sided pleural effusion is seen. There is associated compressive atelectasis of the left lower lobe. Consolidative lung infiltrate is seen within the anterior medial aspects of the left upper lobe and within the superior and basal segments of the entire right lower lobe. No pneumothorax is seen. Proximal bronchial tree is patent. No adrenal mass is seen. Surgical clips are seen within the right upper quadrant typical of a cholecystectomy. However, there is a fluid collection within the gallbladder fossa measuring up to 35 mm. No lytic process is seen. IMPRESSION: Bilateral consolidative lung infiltrates which may represent pneumonia or aspiration pneumonitis. Moderate size left-sided pleural effusion and associated compressive atelectasis of the left lower lobe. Small right-sided pleural effusion. Right paratracheal lymphadenopathy which may be reactive in nature. Mild cardiomegaly. Calcified atheromatous disease of the coronary arteries. 35 mm fluid collection within the gallbladder fossa. Cholecystectomy clips are apparent. Electronically signed by: Nathan Hsieh MD (02/25/2020 4:59 PM) [id number] DICTATED and SIGNED BY: NATHAN HSIEH MD DATE: 02/25/20 1659 XAM: Chest, single view. HISTORY: Congestive heart failure. COMPARISON: CT dated 02/25/2020. FINDINGS: A frontal view of the chest is obtained. There is partially consolidated left upper and right lower lobe infiltrate. There is a small left pleural effusion with basilar atelectasis or infiltrate. There is a prominent cardiac silhouette. There is a cardiac pacemaker defibrillator overlying expected position. There is no pneumothorax. IMPRESSION: Stable multifocal infiltrate and small left pleural effusion, better characterized on the CT performed 02/25/2020. Electronically signed by: Lise Mcginnis MD (02/27/2020 2:33 PM) [id number] DICTATED and SIGNED BY: LISE MCGINNIS MD DATE: 02/27/20 1433 Laboratory Tests Test 02/29/20 11:48 02/29/20 16:59 02/29/20 21:09 03/01/20 05:22 Glucose (Fingerstick) 209 mg/dL (70-99) 125 mg/dL (70-99) 243 mg/dL (70-99) Prothrombin Time 29.4 SEC (11.7-14.0) Prothromb Time International Ratio 2.8 (0.8-1.1) Sodium Level 136 mmol/L (136-145) Potassium Level 3.7 mmol/L (3.5-5.1) Chloride Level 100 mmol/L (98-107) Carbon Dioxide Level 31 mmol/L (21-32) Anion Gap 5 (6-14) Blood Urea Nitrogen 21 mg/dL (7-20) Creatinine 1.5 mg/dL (0.6-1.0) Estimated GFR (Cockcroft-Gault) 34.2 Glucose Level 209 mg/dL (70-99) Calcium Level 8.0 mg/dL (8.5-10.1) Test 03/01/20 07:33 Glucose (Fingerstick) 199 mg/dL (70-99) Assessment and Plan Assessmemt and Plan Problems Medical Problems: (1) Chest pain Status: Acute (2) Elevated d-dimer Status: Acute (3) Suspected 2019 novel coronavirus infection Status: Acute Comment Review of Relevant I have reviewed the following items juliette (where applicable) has been applied. Labs Laboratory Tests Test 02/28/20 11:30 02/28/20 16:55 02/28/20 20:50 02/29/20 03:45 Glucose (Fingerstick) 255 mg/dL (70-99) 193 mg/dL (70-99) 112 mg/dL (70-99) White Blood Count 10.5 x10^3/uL (4.0-11.0) Red Blood Count 3.74 x10^6/uL (3.50-5.40) Hemoglobin 8.6 g/dL (12.0-15.5) Hematocrit 26.9 % (36.0-47.0) Mean Corpuscular Volume 72 fL (79-100) Mean Corpuscular Hemoglobin 23 pg (25-35) Mean Corpuscular Hemoglobin Concent 32 g/dL (31-37) Red Cell Distribution Width 20.0 % (11.5-14.5) Platelet Count 310 x10^3/uL (140-400) Neutrophils (%) (Auto) 73 % (31-73) Lymphocytes (%) (Auto) 15 % (24-48) Monocytes (%) (Auto) 10 % (0-9) Eosinophils (%) (Auto) 2 % (0-3) Basophils (%) (Auto) 1 % (0-3) Neutrophils # (Auto) 7.6 x10^3/uL (1.8-7.7) Lymphocytes # (Auto) 1.6 x10^3/uL (1.0-4.8) Monocytes # (Auto) 1.0 x10^3/uL (0.0-1.1) Eosinophils # (Auto) 0.2 x10^3/uL (0.0-0.7) Basophils # (Auto) 0.0 x10^3/uL (0.0-0.2) Prothrombin Time 23.8 SEC (11.7-14.0) Prothromb Time International Ratio 2.1 (0.8-1.1) Heparin Anti-Xa Act, Unfractionated 0.58 IU/mL (0.30-0.70) Sodium Level 136 mmol/L (136-145) Potassium Level 3.5 mmol/L (3.5-5.1) Chloride Level 99 mmol/L (98-107) Carbon Dioxide Level 30 mmol/L (21-32) Anion Gap 7 (6-14) Blood Urea Nitrogen 22 mg/dL (7-20) Creatinine 1.7 mg/dL (0.6-1.0) Estimated GFR (Cockcroft-Gault) 29.6 Glucose Level 116 mg/dL (70-99) Calcium Level 8.3 mg/dL (8.5-10.1) Magnesium Level 2.2 mg/dL (1.8-2.4) Test 02/29/20 07:29 02/29/20 11:48 02/29/20 16:59 02/29/20 21:09 Glucose (Fingerstick) 131 mg/dL (70-99) 209 mg/dL (70-99) 125 mg/dL (70-99) 243 mg/dL (70-99) Test 03/01/20 05:22 03/01/20 07:33 Prothrombin Time 29.4 SEC (11.7-14.0) Prothromb Time International Ratio 2.8 (0.8-1.1) Sodium Level 136 mmol/L (136-145) Potassium Level 3.7 mmol/L (3.5-5.1) Chloride Level 100 mmol/L (98-107) Carbon Dioxide Level 31 mmol/L (21-32) Anion Gap 5 (6-14) Blood Urea Nitrogen 21 mg/dL (7-20) Creatinine 1.5 mg/dL (0.6-1.0) Estimated GFR (Cockcroft-Gault) 34.2 Glucose Level 209 mg/dL (70-99) Calcium Level 8.0 mg/dL (8.5-10.1) Glucose (Fingerstick) 199 mg/dL (70-99) Laboratory Tests Test 02/29/20 11:48 02/29/20 16:59 02/29/20 21:09 03/01/20 05:22 Glucose (Fingerstick) 209 mg/dL (70-99) 125 mg/dL (70-99) 243 mg/dL (70-99) Prothrombin Time 29.4 SEC (11.7-14.0) Prothromb Time International Ratio 2.8 (0.8-1.1) Sodium Level 136 mmol/L (136-145) Potassium Level 3.7 mmol/L (3.5-5.1) Chloride Level 100 mmol/L (98-107) Carbon Dioxide Level 31 mmol/L (21-32) Anion Gap 5 (6-14) Blood Urea Nitrogen 21 mg/dL (7-20) Creatinine 1.5 mg/dL (0.6-1.0) Estimated GFR (Cockcroft-Gault) 34.2 Glucose Level 209 mg/dL (70-99) Calcium Level 8.0 mg/dL (8.5-10.1) Test 03/01/20 07:33 Glucose (Fingerstick) 199 mg/dL (70-99) Medications Current Medications Aspirin (Brandee Aspirin) 325 mg 1X ONCE PO ; Start 02/22/20 at 22:30; Stop 02/22/20 at 22:26; Status DC Acetaminophen (Tylenol) 500 mg 1X ONCE PO Last administered on 02/22/20at 22:34; Start 02/22/20 at 23:00; Stop 02/22/20 at 23:01; Status DC Ondansetron HCl (Zofran) 4 mg PRN Q8HRS PRN IV NAUSEA/VOMITING 1ST CHOICE; Start 02/23/20 at 00:45; Stop 02/24/20 at 00:44; Status DC Insulin Human Lispro (HumaLOG) 0-5 UNITS TIDWMEALS SQ Last administered on 02/27/20at 18:20; Start 02/23/20 at 08:00 Dextrose (Dextrose 50%-Water Syringe) 12.5 gm PRN Q15MIN PRN IV SEE COMMENTS; Start 02/23/20 at 00:45 Magnesium Sulfate 50 ml @ 25 mls/hr 1X ONCE IV Last administered on 02/23/20at 09:38; Start 02/23/20 at 09:15; Stop 02/23/20 at 11:14; Status DC Acetaminophen (Tylenol) 650 mg PRN Q6HRS PRN PO MILD PAIN / TEMP > 100.3'F Last administered on 02/25/20at 13:49; Start 02/23/20 at 12:45 Alprazolam (Xanax) 0.25 mg PRN BID PRN PO ANXIETY / AGITATION Last administered on 02/29/20at 19:05; Start 02/23/20 at 12:45 Amiodarone HCl (Cordarone) 200 mg DAILY PO Last administered on 03/01/20 08:34; Start 02/23/20 at 14:00 Aspirin (Aspirin Chewable) 81 mg DAILY PO Last administered on 03/01/20 08:34; Start 02/23/20 at 14:00 Atorvastatin Calcium (Lipitor) 40 mg HS PO Last administered on 02/29/20at 22:04; Start 02/23/20 at 21:00 Citalopram Hydrobromide (CeleXA) 20 mg DAILY08 PO Last administered on 03/01/20 08:34; Start 02/23/20 at 14:00 Docusate Sodium (Colace) 100 mg BID PO Last administered on 03/01/20 08:33; Start 02/23/20 at 14:00 Furosemide (Lasix) 20 mg BID92 PO Last administered on 02/25/20at 13:50; Start 02/23/20 at 14:00; Stop 02/25/20 at 13:51; Status DC Gabapentin (Neurontin) 100 mg BID PO Last administered on 03/01/20 08:35; St art 02/23/20 at 14:00 Acetaminophen/ Hydrocodone Bitart (Lortab 7.5/325) 1 tab PRN Q4HRS PRN PO MODERATE PAIN Last administered on 02/29/20 16:31; Start 02/23/20 at 12:45 Levothyroxine Sodium (Synthroid) 100 mcg DAILY06 PO Last administered on 03/01/20 05:55; Start 02/23/20 at 14:00 Montelukast Sodium (Singulair) 10 mg HS PO Last administered on 02/29/20 22:04; Start 02/23/20 at 21:00 Pantoprazole Sodium (Protonix) 40 mg DAILYAC PO Last administered on 02/27/20 09:02; Start 02/23/20 at 16:30; Stop 02/27/20 at 14:50; Status DC Fenofibrate (Lofibra) 134 mg DAILY PO Last administered on 03/01/20 08:33; Start 02/23/20 at 14:00 Insulin Glargine (Lantus Syringe) 35 unit QHS SQ Last administered on 02/29/20 22:11; Start 02/23/20 at 21:00 Sacubitril/ Valsartan (Entresto 49 Mg-51 Mg) 1 tab DAILY PO Last administered on 02/29/20 11:48; Start 02/23/20 at 14:00 Heparin Sodium (Porcine) (Heparin Sodium) 4,000 unit 1X ONCE IV Last administered on 02/23/20at 15:05; Start 02/23/20 at 14:30; Stop 02/23/20 at 14 :31; Status DC Heparin Sodium/ Dextrose 250 ml @ 0 mls/hr CONT PRN IV PER PROTOCOL Last administered on 02/24/20 04:34; Start 02/23/20 at 14:30; Stop 02/24/20 at 12:46; Status DC Heparin Sodium (Porcine) (Heparin Sodium) 2,750 unit PRN Q6HRS PRN IV FOR UFH LEVEL LESS THAN 0.2 Last administered on 02/23/20at 22:28; Start 02/23/20 at 14:30; Stop 02/24/20 at 12:46; Status DC Heparin Sodium (Porcine) (Heparin Sodium) 1,350 unit PRN Q6HRS PRN IV FOR UFH LEVEL 0.2 - 0.29; Start 02/23/20 at 14:30; Stop 02/24/20 at 12:46; Status DC Insulin Human Lispro (HumaLOG) 10 units 1X ONCE SQ Last administered on 02/23/20at 16:46; Start 02/23/20 at 16:45; Stop 02/23/20 at 16:46; Status DC Isosorbide Mononitrate (Imdur) 30 mg DAILY PO Last administered on 02/29/20at 11 :48; Start 02/24/20 at 09:00 Info (Anti-Coagulation Monitoring By Pharmacy) 1 each PRN DAILY PRN MC SEE COMMENTS Last administered on 02/26/20at 12:38; Start 02/24/20 at 12:15; Stop 02/29/20 at 10:53; Status DC Insulin Human Regular (HumuLIN R VIAL) 35 unit TID SQ ; Start 02/24/20 at 14:00; Stop 02/24/20 at 12:23; Status DC Insulin Human Lispro (HumaLOG) 35 units TIDWMEALS SQ Last administered on 03/01/20at 08:41; Start 02/24/20 at 13:00 Apixaban (Eliquis) 10 mg BID PO ; Start 02/24/20 at 13:00; Stop 03/01/20 at 21:01; Status Cancel Apixaban (Eliquis) 5 mg BID PO ; Start 03/02/20 at 09:00; Status Cancel Warfarin Sodium (Coumadin Per Pharmacy) 1 each PRN DAILY PRN MC SEE COMMENTS Last administered on 02/29/20at 07:22; Start 02/24/20 at 13:15 Warfarin Sodium (Coumadin) 5 mg 1X WARF ONCE PO Last administered on 02/24/20at 15:03; Start 02/24/20 at 16:00; Stop 02/24/20 at 16:01; Status DC Heparin Sodium/ Dextrose 250 ml @ 0 mls/hr CONT PRN IV PER PROTOCOL Last administered on 02/29/20at 00:30; Start 02/24/20 at 13:45; Stop 02/29/20 at 09:58; Status DC Heparin Sodium (Porcine) (Heparin Sodium) 2,750 unit PRN Q6HRS PRN IV FOR UFH LEVEL LESS THAN 0.2 Last administered on 02/24/20at 16:34; Start 02/24/20 at 13:45; Stop 02/29/20 at 09:58; Status DC Heparin Sodium (Porcine) (Heparin Sodium) 1,350 unit PRN Q6HRS PRN IV FOR UFH LEVEL 0.2 - 0.29 Last administered on 02/27/20at 06:09; Start 02/24/20 at 13:45; Stop 02/29/20 at 09:58; Status DC Furosemide (Lasix) 40 mg BID92 PO Last administered on 02/29/20at 15:17; Start 02/25/20 at 14:00 Warfarin Sodium (Coumadin) 5 mg 1X WARF ONCE PO Last administered on 02/25/20at 17:14; Start 02/25/20 at 16:00; Stop 02/25/20 at 16:01; Status DC Piperacillin Sod/ Tazobactam Sod 4.5 gm/Sodium Chloride 100 ml @ 200 mls/hr 1X ONCE IV Last administered on 02/26/20at 12:34; Start 02/26/20 at 12:00; Stop 02/26/20 at 12:29; Status DC Piperacillin Sod/ Tazobactam Sod (Zosyn Per Pharmacy) 1 each PRN DAILY PRN MC SEE COMMENTS; Start 02/26/20 at 11:30 Iron Sucrose 200 mg/Sodium Chloride 110 ml @ 55 mls/hr 1X ONCE IV ; Start 02/26/20 at 12:00; Stop 02/26/20 at 15:27; Status DC Piperacillin Sod/ Tazobactam Sod 4.5 gm/Sodium Chloride 100 ml @ 200 mls/hr Q6HRS IV Last administered on 02/28/20at 06:18; Start 02/26/20 at 18:00; Stop 02/28/20 at 07:12; Status DC Warfarin Sodium (Coumadin) 7.5 mg 1X WARF ONCE PO Last administered on 02/26/20at 15:48; Start 02/26/20 at 16:00; Stop 02/26/20 at 16:01; Status DC Ferrous Sulfate (Feosol) 325 mg TIDWMEALHC PO Last administered on 03/01/20at 08:33; Start 02/26/20 at 17:00 Ascorbic Acid (Vitamin C) 500 mg DAILY PO Last administered on 02/28/20at 08:36; Start 02/27/20 at 09:00 Warfarin Sodium (Coumadin) 7.5 mg 1X WARF ONCE PO Last administered on 02/27/20at 18:13; Start 02/27/20 at 16:00; Stop 02/27/20 at 16:01; Status DC Lactobacillus Rhamnosus (Culturelle) 1 cap BID PO Last administered on 03/01/20at 08:33; Start 02/27/20 at 21:00 Barium Sulfate (Varibar Thin Liquid Apple) 148 gm 1X ONCE PO Last administered on 02/27/20at 13:45; Start 02/27/20 at 12:30; Stop 02/27/20 at 12:31; Status DC Barium Sulfate (Liquid E-Z Paque) 355 ml 1X ONCE PO Last administered on 02/27/20at 13:55; Start 02/27/20 at 13:00; Stop 02/27/20 at 13:01; Status DC Barium Sulfate (E-Z-Hd) 340 gm 1X ONCE PO ; Start 02/27/20 at 13:00; Stop 02/27/20 at 13:01; Status DC Simethicone/ Sodium Bicarb/ Citric Ac (E-Z-Gas) 1 packet 1X ONCE PO ; Start 02/27/20 at 13:00; Stop 02/27/20 at 13:01; Status DC Pantoprazole Sodium (Protonix) 40 mg BIDAC PO Last administered on 03/01/20at 08:35; Start 02/27/20 at 16:30 Warfarin Sodium (Coumadin) 7.5 mg 1X WARF ONCE PO Last administered on 02/28/20at 16:43; Start 02/28/20 at 16:00; Stop 02/28/20 at 16:01; Status DC Piperacillin Sod/ Tazobactam Sod 3.375 gm/Sodium Chloride 50 ml @ 100 mls/hr Q 6HRS IV Last administered on 03/01/20at 05:56; Start 02/28/20 at 12:00 Potassium Chloride (Klor-Con) 40 meq 1X ONCE PO Last administered on 02/28/20at 08:35; Start 02/28/20 at 08:30; Stop 02/28/20 at 08:31; Status DC Magnesium Sulfate/ Dextrose 100 ml @ 100 mls/hr 1X ONCE IV Last administered on 02/28/20at 12:27; Start 02/28/20 at 12:00; Stop 02/28/20 at 12:59; Status DC Guaifenesin (Robitussin Dm) 10 ml PRN Q6HRS PRN PO COUGH; Start 02/28/20 at 12:00 Warfarin Sodium (Coumadin) 7.5 mg 1X WARF ONCE PO Last administered on 02/29/20at 16:30; Start 02/29/20 at 16:00; Stop 02/29/20 at 16:01; Status DC Active Scripts Active Colace (Docusate Sodium) 100 Mg Capsule 1 Cap PO BID 30 Days Alprazolam 0.25 Mg Tablet 1 Tab PO BID PRN Reported Entresto 97 mg-103 mg Tablet (Sacubitril/Valsartan) 1 Each Tablet 0.5 Each PO DAILY Aspirin 81 Mg Tab.chew 81 Mg PO DAILY Citalopram Hbr (Citalopram Hydrobromide) 20 Mg Tablet 1 Tab PO DAILY08 Hydrocodone-Apap 7.5-325 (Hydrocodone Bit/Acetaminophen) 1 Tab Tablet 1 Tab PO Q4HRS PRN Furosemide 20 Mg Tablet 20 Mg PO BID Amiodarone Hcl 200 Mg Tablet 1 Tab PO DAILY Montelukast Sodium Tablet (Montelukast Sodium) 10 Mg Tablet 10 Mg PO HS Levothyroxine Sodium 100 Mcg Tablet 1 Tab PO DAILY Proair Hfa Inhaler (Albuterol Sulfate) 8.5 Gm Hfa.aer.ad 2 Puff IH PRN Q4-6HRS Tylenol (Acetaminophen) 325 Mg Tablet 650 Mg PO Fenofibrate (Fenofibrate Nanocrystallized) 145 Mg Tablet 1 Tab PO DAILY Humalog (Insulin Lispro) 100 Unit/1 Ml Vial 35 Unit SQ TID Lantus Solostar (Insulin Glargine,Hum.rec.anlog) 100 Unit/1 Ml Insuln.pen 35 Unit SQ HS Pantoprazole Sodium (Pantoprazole Sodium) 40 Mg Tablet.dr 40 Mg PO DAILY Atorvastatin Calcium 40 Mg Tablet 40 Mg PO HS Gabapentin (Gabapentin) 100 Mg Capsule 100 Mg PO BID Vitals/I & O Vital Sign - Last 24 Hours 02/29/20 02/29/20 02/29/20 02/29/20 11:00 11:48 11:48 15:23 Temp 97.4 98.1 97.4 98.1 Pulse 86 86 86 86 Resp 18 18 B/P (MAP) 131/57 (81) 131/57 131/57 107/48 (67) Pulse Ox 98 96 O2 Delivery Nasal Cannula Nasal Cannula O2 Flow Rate 3.0 3.0 02/29/20 02/29/20 02/29/20 02/29/20 16:31 17:32 19:45 20:00 Temp 98.5 98.5 Pulse 89 Resp 18 B/P (MAP) 117/57 (77) Pulse Ox 97 O2 Delivery Nasal Cannula Nasal Cannula Nasal Cannula Nasal Cannula O2 Flow Rate 3.0 3.0 3.0 3.0 02/29/20 03/01/20 03/01/20 03/01/20 22:45 03:45 07:00 08:00 Temp 98.3 98.3 97.9 98.3 98.3 97.9 Pulse 81 83 84 Resp 18 18 20 B/P (MAP) 121/57 (78) 98/65 (76) 118/54 (75) Pulse Ox 95 96 95 O2 Delivery Nasal Cannula Nasal Cannula Nasal Cannula Nasal Cannula O2 Flow Rate 3.0 2.0 3.0 3.0 03/01/20 08:34 Pulse 88 B/P (MAP) 118/54 Intake and Output 02/29/20 02/29/20 03/01/20 15:00 23:00 07:00 Intake Total 570 ml 220 ml Output Total 1 ml 1 ml Balance 569 ml -1 ml 220 ml FREDO WOO MD Mar 01, 2020 09:57
[2020-03-01] MEDS: SACUBITRIL/VALSARTAN 49/51MG TABLET. PO SCH (10:39)
--- NOTE | 2020-03-01 11:59 | PDOC ---
SUBJECTIVE ROS no new complaints OBJECTIVE Vital Signs Vital Signs Date Time Temp Pulse Resp B/P (MAP) Pulse Ox O2 Delivery O2 Flow Rate FiO2 03/01/20 10:39 85 115/54 03/01/20 08:00 Nasal Cannula 3.0 03/01/20 07:00 97.9 20 95 97.9 I & 0 l Intake and Output 03/01/20 07:00 Intake Total 790 ml Output Total 2 ml Balance 788 ml Intake Oral 790 ml Output Urine Total 2 ml # Voids 1 # Bowel Movements 1 PHYSICAL EXAM Physical Exam General Appearance: no apparent distress HEEN -OM moist, On chronic o2 3 lts at home Respiratory: decreased breath sounds, Non labored Heart: S1S2 Abdomen: soft, bowel sounds present, Obese Genitourinary: No frazier, No cva or sp tenderness Neurology: alert, oriented, grossly normal Skin: warm, No rash DIAGNOSIS/ASSESSMENT Assessment & Plan CKD stage 3 Baseline Cr 1.5-1.8 currently stable Pt reports never seen Neph as OP, was scheduled to see me as initial consult but hospitalized Supportive care, avoid nephrotoxins Hyponatremia - resolved Hypokalemia - resolved HTN - Stable DM II Dyspnea - AC hypoxic Resp failure, stable Recurrent Pulm emboli Anemia- per Primary CMP with EF 20-25%, On lasix PO BID , follow with cardiology CAD with Hx of stents COMMENT/RELEVANT DATA Meds Current Medications Medications (Trade) Dose Ordered Sig/Lester Start Time Stop Time Status Last Admin Dose Admin Acetaminophen (Tylenol) 650 mg PRN Q6HRS PRN 02/23/20 12:45 02/25/20 13:49 650 MG Acetaminophen/ Hydrocodone Bitart (Lortab 7.5/325) 1 tab PRN Q4HRS PRN 02/23/20 12:45 02/29/20 16:31 1 TAB Alprazolam (Xanax) 0.25 mg PRN BID PRN 02/23/20 12:45 02/29/20 19:05 0.25 MG Amiodarone HCl (Cordarone) 200 mg DAILY 02/23/20 14:00 03/01/20 08:34 200 MG Apixaban (Eliquis) 5 mg BID 03/02/20 09:00 Cancel Ascorbic Acid (Vitamin C) 500 mg DAILY 02/27/20 09:00 02/28/20 08:36 500 MG Aspirin (Aspirin Chewable) 81 mg DAILY 02/23/20 14:00 03/01/20 08:34 81 MG Aspirin (Brandee Aspirin) 325 mg 1X ONCE 02/22/20 22:30 02/22/20 22:26 DC Atorvastatin Calcium (Lipitor) 40 mg HS 02/23/20 21:00 02/29/20 22:04 40 MG Barium Sulfate (E-Z-Hd) 340 gm 1X ONCE 02/27/20 13:00 02/27/20 13:01 DC Barium Sulfate (Liquid E-Z Paque) 355 ml 1X ONCE 02/27/20 13:00 02/27/20 13:01 DC 02/27/20 13:55 355 ML Barium Sulfate (Varibar Thin Liquid Apple) 148 gm 1X ONCE 02/27/20 12:30 02/27/20 12:31 DC 02/27/20 13:45 148 GM Citalopram Hydrobromide (CeleXA) 20 mg DAILY08 02/23/20 14:00 03/01/20 08:34 20 MG Dextrose (Dextrose 50%-Water Syringe) 12.5 gm PRN Q15MIN PRN 02/23/20 00:45 Docusate Sodium (Colace) 100 mg BID 02/23/20 14:00 03/01/20 08:33 100 MG Fenofibrate (Lofibra) 134 mg DAILY 02/23/20 14:00 03/01/20 08:33 134 MG Ferrous Sulfate (Feosol) 325 mg TIDWMEALHC 02/26/20 17:00 03/01/20 08:33 325 MG Furosemide (Lasix) 40 mg BID92 02/25/20 14:00 02/29/20 15:17 40 MG Gabapentin (Neurontin) 100 mg BID 02/23/20 14:00 03/01/20 08:35 100 MG Guaifenesin (Robitussin Dm) 10 ml PRN Q6HRS PRN 02/28/20 12:00 Heparin Sodium (Porcine) (Heparin Sodium) 1,350 unit PRN Q6HRS PRN 02/24/20 13:45 02/29/20 09:58 DC 02/27/20 06:09 1,350 UNIT Heparin Sodium/ Dextrose 250 ml @ 0 mls/hr CONT PRN 02/24/20 13:45 02/29/20 09:58 DC 02/29/20 00:30 21 MLS/HR Info (Anti-Coagulation Monitoring By Pharmacy) 1 each PRN DAILY PRN 02/24/20 12:15 02/29/20 10:53 DC 02/26/20 12:38 1 EACH Insulin Glargine (Lantus Syringe) 35 unit QHS 02/23/20 21:00 02/29/20 22:11 35 UNIT Insulin Human Lispro (HumaLOG) 35 units TIDWMEALS 02/24/20 13:00 03/01/20 08:41 35 UNITS Insulin Human Regular (HumuLIN R VIAL) 35 unit TID 02/24/20 14:00 02/24/20 12:23 DC Iron Sucrose 200 mg/Sodium Chloride 110 ml @ 55 mls/hr 1X ONCE 02/26/20 12:00 02/26/20 15:27 DC Isosorbide Mononitrate (Imdur) 30 mg DAILY 02/24/20 09:00 02/29/20 11:48 30 MG Lactobacillus Rhamnosus (Culturelle) 1 cap BID 02/27/20 21:00 03/01/20 08:33 1 CAP Levothyroxine Sodium (Synthroid) 100 mcg DAILY06 02/23/20 14:00 03/01/20 05:55 100 MCG Magnesium Sulfate 50 ml @ 25 mls/hr 1X ONCE 02/23/20 09:15 02/23/20 11:14 DC 02/23/20 09:38 25 MLS/HR Magnesium Sulfate/ Dextrose 100 ml @ 100 mls/hr 1X ONCE 02/28/20 12:00 02/28/20 12:59 DC 02/28/20 12:27 100 MLS/HR Montelukast Sodium (Singulair) 10 mg HS 02/23/20 21:00 02/29/20 22:04 10 MG Ondansetron HCl (Zofran) 4 mg PRN Q8HRS PRN 02/23/20 00:45 02/24/20 00:44 DC Pantoprazole Sodium (Protonix) 40 mg BIDAC 02/27/20 16:30 03/01/20 08:35 40 MG Piperacillin Sod/ Tazobactam Sod (Zosyn Per Pharmacy) 1 each PRN DAILY PRN 02/26/20 11:30 Piperacillin Sod/ Tazobactam Sod 3.375 gm/Sodium Chloride 50 ml @ 100 mls/hr Q6HRS 02/28/20 12:00 03/01/20 05:56 100 MLS/HR Piperacillin Sod/ Tazobactam Sod 4.5 gm/Sodium Chloride 100 ml @ 200 mls/hr Q6HRS 02/26/20 18:00 02/28/20 07:12 DC 02/28/20 06:18 200 MLS/HR Potassium Chloride (Klor-Con) 40 meq 1X ONCE 02/28/20 08:30 02/28/20 08:31 DC 02/28/20 08:35 40 MEQ Sacubitril/ Valsartan (Entresto 49 Mg-51 Mg) 1 tab DAILY 02/23/20 14:00 03/01/20 10:39 1 TAB Simethicone/ Sodium Bicarb/ Citric Ac (E-Z-Gas) 1 packet 1X ONCE 02/27/20 13:00 02/27/20 13:01 DC Warfarin Sodium (Coumadin Per Pharmacy) 1 each PRN DAILY PRN 02/24/20 13:15 02/29/20 07:22 1 EACH Warfarin Sodium (Coumadin) 7.5 mg 1X WARF ONCE 02/29/20 16:00 02/29/20 16:01 DC 02/29/20 16:30 7.5 MG Lab Laboratory Tests Test 02/29/20 16:59 02/29/20 21:09 03/01/20 05:22 03/01/20 07:33 Glucose (Fingerstick) 125 mg/dL (70-99) 243 mg/dL (70-99) 199 mg/dL (70-99) Prothrombin Time 29.4 SEC (11.7-14.0) Prothromb Time International Ratio 2.8 (0.8-1.1) Sodium Level 136 mmol/L (136-145) Potassium Level 3.7 mmol/L (3.5-5.1) Chloride Level 100 mmol/L (98-107) Carbon Dioxide Level 31 mmol/L (21-32) Anion Gap 5 (6-14) Blood Urea Nitrogen 21 mg/dL (7-20) Creatinine 1.5 mg/dL (0.6-1.0) Estimated GFR (Cockcroft-Gault) 34.2 Glucose Level 209 mg/dL (70-99) Calcium Level 8.0 mg/dL (8.5-10.1) Results All relevant outside records, renal labs, imaging studies, telemetry/EKG's were reviewed. Justicifation of Admission Dx: Justifications for Admission: Justification of Admission Dx: Yes NAYA MARI MD Mar 01, 2020 11:58
--- NOTE | 2020-03-01 11:59 | NUR ---
SS following up with discharge planning. SS reviewed pt chart and discussed with pt RN. Pt INR 2.8 today. Pt off drip. PT/OT recommending home with assistance. SS met with pt to discussed home healthcare and discharge planning. Pt declined home healthcare and reported that she will drive to have her INR checked. Pt has home oxygen at home. SS will continue to follow for discharge planning.
--- NOTE | 2020-03-01 12:28 | PDOC ---
PULMONARY PROGRESS NOTES Subjective Remains on 3 liters N/C oxygen, continues to experience paroxysmal cough Vitals Vital Signs Date Time Temp Pulse Resp B/P (MAP) Pulse Ox O2 Delivery O2 Flow Rate FiO2 03/01/20 10:39 85 115/54 03/01/20 08:00 Nasal Cannula 3.0 03/01/20 07:00 97.9 20 95 97.9 ROS: No Nausea, No Chest Pain, No Abdominal Pain General: Alert, Oriented X4, No acute distress Lungs: Other (decrease bs) Cardiovascular: S1, S2 Abdomen: Soft, Other (obese) Extremities: Other (1+edema) Skin: Warm, Dry Labs Laboratory Tests Test 02/28/20 16:55 02/28/20 20:50 02/29/20 03:45 02/29/20 07:29 Glucose (Fingerstick) 193 mg/dL (70-99) 112 mg/dL (70-99) 131 mg/dL (70-99) White Blood Count 10.5 x10^3/uL (4.0-11.0) Red Blood Count 3.74 x10^6/uL (3.50-5.40) Hemoglobin 8.6 g/dL (12.0-15.5) Hematocrit 26.9 % (36.0-47.0) Mean Corpuscular Volume 72 fL (79-100) Mean Corpuscular Hemoglobin 23 pg (25-35) Mean Corpuscular Hemoglobin Concent 32 g/dL (31-37) Red Cell Distribution Width 20.0 % (11.5-14.5) Platelet Count 310 x10^3/uL (140-400) Neutrophils (%) (Auto) 73 % (31-73) Lymphocytes (%) (Auto) 15 % (24-48) Monocytes (%) (Auto) 10 % (0-9) Eosinophils (%) (Auto) 2 % (0-3) Basophils (%) (Auto) 1 % (0-3) Neutrophils # (Auto) 7.6 x10^3/uL (1.8-7.7) Lymphocytes # (Auto) 1.6 x10^3/uL (1.0-4.8) Monocytes # (Auto) 1.0 x10^3/uL (0.0-1.1) Eosinophils # (Auto) 0.2 x10^3/uL (0.0-0.7) Basophils # (Auto) 0.0 x10^3/uL (0.0-0.2) Prothrombin Time 23.8 SEC (11.7-14.0) Prothromb Time International Ratio 2.1 (0.8-1.1) Heparin Anti-Xa Act, Unfractionated 0.58 IU/mL (0.30-0.70) Sodium Level 136 mmol/L (136-145) Potassium Level 3.5 mmol/L (3.5-5.1) Chloride Level 99 mmol/L (98-107) Carbon Dioxide Level 30 mmol/L (21-32) Anion Gap 7 (6-14) Blood Urea Nitrogen 22 mg/dL (7-20) Creatinine 1.7 mg/dL (0.6-1.0) Estimated GFR (Cockcroft-Gault) 29.6 Glucose Level 116 mg/dL (70-99) Calcium Level 8.3 mg/dL (8.5-10.1) Magnesium Level 2.2 mg/dL (1.8-2.4) Test 02/29/20 11:48 02/29/20 16:59 02/29/20 21:09 03/01/20 05:22 Glucose (Fingerstick) 209 mg/dL (70-99) 125 mg/dL (70-99) 243 mg/dL (70-99) Prothrombin Time 29.4 SEC (11.7-14.0) Prothromb Time International Ratio 2.8 (0.8-1.1) Sodium Level 136 mmol/L (136-145) Potassium Level 3.7 mmol/L (3.5-5.1) Chloride Level 100 mmol/L (98-107) Carbon Dioxide Level 31 mmol/L (21-32) Anion Gap 5 (6-14) Blood Urea Nitrogen 21 mg/dL (7-20) Creatinine 1.5 mg/dL (0.6-1.0) Estimated GFR (Cockcroft-Gault) 34.2 Glucose Level 209 mg/dL (70-99) Calcium Level 8.0 mg/dL (8.5-10.1) Test 03/01/20 07:33 03/01/20 11:50 Glucose (Fingerstick) 199 mg/dL (70-99) 184 mg/dL (70-99) Laboratory Tests Test 02/29/20 16:59 02/29/20 21:09 03/01/20 05:22 03/01/20 07:33 Glucose (Fingerstick) 125 mg/dL (70-99) 243 mg/dL (70-99) 199 mg/dL (70-99) Prothrombin Time 29.4 SEC (11.7-14.0) Prothromb Time International Ratio 2.8 (0.8-1.1) Sodium Level 136 mmol/L (136-145) Potassium Level 3.7 mmol/L (3.5-5.1) Chloride Level 100 mmol/L (98-107) Carbon Dioxide Level 31 mmol/L (21-32) Anion Gap 5 (6-14) Blood Urea Nitrogen 21 mg/dL (7-20) Creatinine 1.5 mg/dL (0.6-1.0) Estimated GFR (Cockcroft-Gault) 34.2 Glucose Level 209 mg/dL (70-99) Calcium Level 8.0 mg/dL (8.5-10.1) Test 03/01/20 11:50 Glucose (Fingerstick) 184 mg/dL (70-99) Medications Active Scripts Medications Dose Route/Sig Max Daily Dose Days Date Category Entresto 97 mg-103 mg Tablet (Sacubitril/Valsartan) 1 Each Tablet 0.5 Each PO DAILY 02/18/20 Reported Aspirin 81 Mg Tab.chew 81 Mg PO DAILY 02/18/20 Reported Citalopram Hbr (Citalopram Hydrobromide) 20 Mg Tablet 1 Tab PO DAILY08 12/23/19 Reported Hydrocodone-Apap 7.5-325 (Hydrocodone Bit/Acetaminophen) 1 Tab Tablet 1 Tab PO Q4HRS PRN 12/23/19 Reported Furosemide 20 Mg Tablet 20 Mg PO BID 12/23/19 Reported Amiodarone Hcl 200 Mg Tablet 1 Tab PO DAILY 12/23/19 Reported Colace (Docusate Sodium) 100 Mg Capsule 1 Cap PO BID 30 10/14/19 Rx Alprazolam 0.25 Mg Tablet 1 Tab PO BID PRN 10/02/19 Rx Montelukast Sodium Tablet (Montelukast Sodium) 10 Mg Tablet 10 Mg PO HS 11/30/17 Reported Levothyroxine Sodium 100 Mcg Tablet 1 Tab PO DAILY 05/26/16 Reported Proair Hfa Inhaler (Albuterol Sulfate) 8.5 Gm Hfa.aer.ad 2 Puff IH PRN Q4-6HRS 05/20/15 Reported Tylenol (Acetaminophen) 325 Mg Tablet 650 Mg PO 05/14/15 Reported Fenofibrate (Fenofibrate Nanocrystallized) 145 Mg Tablet 1 Tab PO DAILY 05/14/15 Reported Humalog (Insulin Lispro) 100 Unit/1 Ml Vial 35 Unit SQ TID 04/08/14 Reported Lantus Solostar (Insulin Glargine,Hum.rec.anlog) 100 Unit/1 Ml Insuln.pen 35 Unit SQ HS 04/08/14 Reported Pantoprazole Sodium (Pantoprazole Sodium) 40 Mg Tablet.dr 40 Mg PO DAILY 04/08/14 Reported Atorvastatin Calcium 40 Mg Tablet 40 Mg PO HS 04/08/14 Reported Gabapentin (Gabapentin) 100 Mg Capsule 100 Mg PO BID 04/08/[address] chest IMPRESSION: Bilateral consolidative lung infiltrates which may represent pneumonia or aspiration pneumonitis. Impression . 1. Acute hypoxemic respiratory--improving 2. No significant tobacco history. 3. Cardiomyopathy with an ejection fraction of 20%-25% with possible mild congestive heart failure. She has severe global hypokinesis. She is status post stents. 4. 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 5. History of breast cancer with prior left mastectomy. 6. Abnormal CXR with possible faint mild interstitial infiltrates 7. CT no evidence of pulmonary embolus 8. CT with bilateral infiltrates left upper lobe right lower lobe, suspect infectious process, not typical of amiodarone induced lung injury 9. Bilateral pleural effusion 10. Status post IVC filter removal 02/18/20 11. VQ scan intermediate probability, my clinical suspicion for PE is low, venous Dopplers negative Plan . Add Tyler Page, if continues to improve may consider discharge or transfer to [facility] unit in the a.m. Continue supplemental oxygen to keep sats above 92% Cont. ABX, will switch to oral antibiotics upon discharge Follow cardiology recs-- new ECHO shows EF 20-25% Follow nephrology recs-- cr. stable Continue Anticoagulation --on coumadin, INR 2.[address] chest in 8 weeks OOB as tolerated -- PT/ OT D/W RN KIRT AGUILLON MD Mar 01, 2020 12:28
[2020-03-01] MEDS: FUROSEMIDE 40 MG TABLET. PO SCH ×2 (12:40→17:41)
--- NOTE | 2020-03-01 12:48 | NUR ---
Pharmacy Warfarin Dosing Note S:Pharmacy consulted to assist with anticoagulation therapy started 02/24/20 with target INR: 2 -3 O:VALENTINO SINGH is a 69 year old F with DVT/PE LABS: Last INR: 2.8 Last HGB: 8.6 Last HCT: 26.9 Last PLT: 310 Last dose of 7.5 mg given on 02/29/20 at 1643 Previous Regimen: Vitamin K given: N Drug Interaction Changes: Same Interacting Drug Ongoing Drug Interactions: amiodarone, citalopram, fenofibrate A:INR of 2.8 is within desired range. Target range for this patient is: 2 -3 P: Warfarin dose: 5 mg Today at 1600 Bridge Therapy: None . Next INR due TOMORROW. Pharmacy anticoagulation service will continue to follow. AGNES DAI Chaparrita, 03/01/20 [id number]
[2020-03-01] MEDS: ISOSORBIDE MONONITRATE ER 30 MG TAB.ER.24H PO SCH (15:02)
[2020-03-01] MEDS ORDERED: WARFARIN 5 MG TABLET. PO ONE (16:00)
[2020-03-01] MEDS: ALPRAZolam 0.25 MG TABLET PO PRN (19:28)
[2020-03-01] MEDS: MONTELUKAST SODIUM 10 MG TABLET. PO SCH (20:38)
[2020-03-01] MEDS: ATORVASTATIN CALCIUM 40 MG TABLET. PO SCH (20:38)
[2020-03-01] MEDS: INSULIN GLARGINE SYRINGE. SQ SCH (20:42)
[2020-03-02 02:44] VITALS: BP 125/68
[2020-03-02] MEDS: HYDROcodone/APAP 7.5/325MG 1 TAB TABLET PO PRN ×2 (03:09→23:27)
[2020-03-02] MEDS: PIPERACILLIN/TAZOBACTAM 3.375 GM in IV NORMAL SALINE 50ML 50 ML IV SCH ×4 (05:00→23:30)
[2020-03-02] MEDS: LEVOTHYROXINE 100 MCG TABLET PO SCH (05:00)
[2020-03-02 06:06] LABS: BASO % 1 % (0-3); EOS # 0.1 x10^3/uL (0.0-0.7); EOS % 1 % (0-3); HEMATOCRIT 24.4 % (36.0-47.0); HEMOGLOBIN 7.9 g/dL (12.0-15.5); LYMPH # 1.2 x10^3/uL (1.0-4.8); LYMPH % 14 % (24-48); MEAN CORPUSCULAR HEMOGLOBIN 23 pg (25-35); MEAN CORPUSCULAR HGB CONC 33 g/dL (31-37); MEAN CORPUSCULAR VOLUME 71 fL (79-100); MONO # 0.9 x10^3/uL (0.0-1.1); MONO % 11 % (0-9); NEUT % 73 % (31-73); PLATELET COUNT 310 x10^3/uL (140-400); RED BLOOD COUNT 3.45 x10^6/uL (3.50-5.40); RED CELL DISTRIBUTION WIDTH 20.1 % (11.5-14.5); WHITE BLOOD COUNT 8.3 x10^3/uL (4.0-11.0)
[2020-03-02 06:17] LABS: CALCIUM 7.8 mg/dL (8.5-10.1); CREATININE 1.3 mg/dL (0.6-1.0); GFR 40.4; POTASSIUM 3.5 mmol/L (3.5-5.1); PROTHROMBIN TIME PATIENT 35.3 SEC (11.7-14.0)
[2020-03-02 06:31] LABS: ALBUMIN 1.8 g/dL (3.4-5.0); CREATININE 1.3 mg/dL (0.6-1.0); GFR 40.4; PHOSPHORUS 3.1 mg/dL (2.6-4.7); POTASSIUM 3.4 mmol/L (3.5-5.1)
[2020-03-02 07:00] VITALS: BP 113/56
[2020-03-02] MEDS: INSULIN LISPRO 300 UNITS/3 ML VIAL. SQ SCH ×6 (08:00→17:31)
--- NOTE | 2020-03-02 08:14 | PDOC ---
PULMONARY PROGRESS NOTES Subjective Patient not more short of air, feels better today. Vitals Vital Signs Date Time Temp Pulse Resp B/P (MAP) Pulse Ox O2 Delivery O2 Flow Rate FiO2 03/02/20 04:09 20 03/02/20 02:44 97.8 125/68 (87) 97 Nasal Cannula 3.0 97.8 03/01/20 22:28 83 ROS: No Nausea, No Chest Pain, No Abdominal Pain General: Alert, Oriented X4, No acute distress Lungs: Clear, Other (decrease bs) Cardiovascular: S1, S2 Abdomen: Soft, Other (obese) Extremities: Other (1+edema) Skin: Warm, Dry Labs Laboratory Tests Test 02/29/20 11:48 02/29/20 16:59 02/29/20 21:09 03/01/20 05:22 Glucose (Fingerstick) 209 mg/dL (70-99) 125 mg/dL (70-99) 243 mg/dL (70-99) Prothrombin Time 29.4 SEC (11.7-14.0) Prothromb Time International Ratio 2.8 (0.8-1.1) Sodium Level 136 mmol/L (136-145) Potassium Level 3.7 mmol/L (3.5-5.1) Chloride Level 100 mmol/L (98-107) Carbon Dioxide Level 31 mmol/L (21-32) Anion Gap 5 (6-14) Blood Urea Nitrogen 21 mg/dL (7-20) Creatinine 1.5 mg/dL (0.6-1.0) Estimated GFR (Cockcroft-Gault) 34.2 Glucose Level 209 mg/dL (70-99) Calcium Level 8.0 mg/dL (8.5-10.1) Test 03/01/20 07:33 03/01/20 11:50 03/01/20 16:37 03/01/20 17:37 Glucose (Fingerstick) 199 mg/dL (70-99) 184 mg/dL (70-99) 69 mg/dL (70-99) 88 mg/dL (70-99) Test 03/01/20 20:37 03/02/20 05:22 03/02/20 07:32 Glucose (Fingerstick) 170 mg/dL (70-99) 108 mg/dL (70-99) White Blood Count 8.3 x10^3/uL (4.0-11.0) Red Blood Count 3.45 x10^6/uL (3.50-5.40) Hemoglobin 7.9 g/dL (12.0-15.5) Hematocrit 24.4 % (36.0-47.0) Mean Corpuscular Volume 71 fL (79-100) Mean Corpuscular Hemoglobin 23 pg (25-35) Mean Corpuscular Hemoglobin Concent 33 g/dL (31-37) Red Cell Distribution Width 20.1 % (11.5-14.5) Platelet Count 310 x10^3/uL (140-400) Neutrophils (%) (Auto) 73 % (31-73) Lymphocytes (%) (Auto) 14 % (24-48) Monocytes (%) (Auto) 11 % (0-9) Eosinophils (%) (Auto) 1 % (0-3) Basophils (%) (Auto) 1 % (0-3) Neutrophils # (Auto) 6.0 x10^3/uL (1.8-7.7) Lymphocytes # (Auto) 1.2 x10^3/uL (1.0-4.8) Monocytes # (Auto) 0.9 x10^3/uL (0.0-1.1) Eosinophils # (Auto) 0.1 x10^3/uL (0.0-0.7) Basophils # (Auto) 0.0 x10^3/uL (0.0-0.2) Prothrombin Time 35.3 SEC (11.7-14.0) Prothromb Time International Ratio 3.5 (0.8-1.1) Sodium Level 139 mmol/L (136-145) Potassium Level 3.4 mmol/L (3.5-5.1) Chloride Level 102 mmol/L (98-107) Carbon Dioxide Level 30 mmol/L (21-32) Anion Gap 7 (6-14) Blood Urea Nitrogen 17 mg/dL (7-20) Creatinine 1.3 mg/dL (0.6-1.0) Estimated GFR (Cockcroft-Gault) 40.4 Glucose Level 105 mg/dL (70-99) Calcium Level 8.0 mg/dL (8.5-10.1) Phosphorus Level 3.1 mg/dL (2.6-4.7) Albumin 1.8 g/dL (3.4-5.0) Laboratory Tests Test 03/01/20 11:50 03/01/20 16:37 03/01/20 17:37 03/01/20 20:37 Glucose (Fingerstick) 184 mg/dL (70-99) 69 mg/dL (70-99) 88 mg/dL (70-99) 170 mg/dL (70-99) Test 03/02/20 05:22 03/02/20 07:32 White Blood Count 8.3 x10^3/uL (4.0-11.0) Red Blood Count 3.45 x10^6/uL (3.50-5.40) Hemoglobin 7.9 g/dL (12.0-15.5) Hematocrit 24.4 % (36.0-47.0) Mean Corpuscular Volume 71 fL (79-100) Mean Corpuscular Hemoglobin 23 pg (25-35) Mean Corpuscular Hemoglobin Concent 33 g/dL (31-37) Red Cell Distribution Width 20.1 % (11.5-14.5) Platelet Count 310 x10^3/uL (140-400) Neutrophils (%) (Auto) 73 % (31-73) Lymphocytes (%) (Auto) 14 % (24-48) Monocytes (%) (Auto) 11 % (0-9) Eosinophils (%) (Auto) 1 % (0-3) Basophils (%) (Auto) 1 % (0-3) Neutrophils # (Auto) 6.0 x10^3/uL (1.8-7.7) Lymphocytes # (Auto) 1.2 x10^3/uL (1.0-4.8) Monocytes # (Auto) 0.9 x10^3/uL (0.0-1.1) Eosinophils # (Auto) 0.1 x10^3/uL (0.0-0.7) Basophils # (Auto) 0.0 x10^3/uL (0.0-0.2) Prothrombin Time 35.3 SEC (11.7-14.0) Prothromb Time International Ratio 3.5 (0.8-1.1) Sodium Level 139 mmol/L (136-145) Potassium Level 3.4 mmol/L (3.5-5.1) Chloride Level 102 mmol/L (98-107) Carbon Dioxide Level 30 mmol/L (21-32) Anion Gap 7 (6-14) Blood Urea Nitrogen 17 mg/dL (7-20) Creatinine 1.3 mg/dL (0.6-1.0) Estimated GFR (Cockcroft-Gault) 40.4 Glucose Level 105 mg/dL (70-99) Calcium Level 8.0 mg/dL (8.5-10.1) Phosphorus Level 3.1 mg/dL (2.6-4.7) Albumin 1.8 g/dL (3.4-5.0) Glucose (Fingerstick) 108 mg/dL (70-99) Medications Active Scripts Medications Dose Route/Sig Max Daily Dose Days Date Category Entresto 97 mg-103 mg Tablet (Sacubitril/Valsartan) 1 Each Tablet 0.5 Each PO DAILY 02/18/20 Reported Aspirin 81 Mg Tab.chew 81 Mg PO DAILY 02/18/20 Reported Citalopram Hbr (Citalopram Hydrobromide) 20 Mg Tablet 1 Tab PO DAILY08 12/23/19 Reported Hydrocodone-Apap 7.5-325 (Hydrocodone Bit/Acetaminophen) 1 Tab Tablet 1 Tab PO Q4HRS PRN 12/23/19 Reported Furosemide 20 Mg Tablet 20 Mg PO BID 12/23/19 Reported Amiodarone Hcl 200 Mg Tablet 1 Tab PO DAILY 12/23/19 Reported Colace (Docusate Sodium) 100 Mg Capsule 1 Cap PO BID 30 10/14/19 Rx Alprazolam 0.25 Mg Tablet 1 Tab PO BID PRN 10/02/19 Rx Montelukast Sodium Tablet (Montelukast Sodium) 10 Mg Tablet 10 Mg PO HS 11/30/17 Reported Levothyroxine Sodium 100 Mcg Tablet 1 Tab PO DAILY 05/26/16 Reported Proair Hfa Inhaler (Albuterol Sulfate) 8.5 Gm Hfa.aer.ad 2 Puff IH PRN Q4-6HRS 05/20/15 Reported Tylenol (Acetaminophen) 325 Mg Tablet 650 Mg PO 05/14/15 Reported Fenofibrate (Fenofibrate Nanocrystallized) 145 Mg Tablet 1 Tab PO DAILY 05/14/15 Reported Humalog (Insulin Lispro) 100 Unit/1 Ml Vial 35 Unit SQ TID 04/08/14 Reported Lantus Solostar (Insulin Glargine,Hum.rec.anlog) 100 Unit/1 Ml Insuln.pen 35 Unit SQ HS 04/08/14 Reported Pantoprazole Sodium (Pantoprazole Sodium) 40 Mg Tablet.dr 40 Mg PO DAILY 04/08/14 Reported Atorvastatin Calcium 40 Mg Tablet 40 Mg PO HS 04/08/14 Reported Gabapentin (Gabapentin) 100 Mg Capsule 100 Mg PO BID 04/08/[address] chest IMPRESSION: Bilateral consolidative lung infiltrates which may represent pneumonia or aspiration pneumonitis. Impression . 1. Acute hypoxemic respiratory--improving 2. No significant tobacco history. 3. Cardiomyopathy with an ejection fraction of 20%-25% with possible mild congestive heart failure. She has severe global hypokinesis. She is status post stents. 4. 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 5. History of breast cancer with prior left mastectomy. 6. Abnormal CXR with possible faint mild interstitial infiltrates 7. CT no evidence of pulmonary embolus 8. CT with bilateral infiltrates left upper lobe right lower lobe, suspect infectious process, not typical of amiodarone induced lung injury 9. Bilateral pleural effusion 10. Status post IVC filter removal 02/18/20 11. VQ scan intermediate probability, my clinical suspicion for PE is low, venous Dopplers negative 12. Paroxysmal coughing spells Plan . Okay to discharge, discussed with Dr. Menjivar Follow-up with me in 8 weeks Rx written for Augmentin Add Tyler Thaigisele, seems to have Continue supplemental oxygen to keep sats above 92% Follow cardiology recs-- new ECHO shows EF 20-25% Follow nephrology recs-- cr. stable Continue Anticoagulation --on coumadin, per PCP Plan to Repeat CT chest in 8 weeks OOB as tolerated -- PT/ OT D/W KIRT MUNIZ MD Mar 02, 2020 08:14
[2020-03-02] MEDS ORDERED: APIXABAN 5 MG TABLET. PO SCH (09:00)
[2020-03-02] MEDS: SACUBITRIL/VALSARTAN 49/51MG TABLET. PO SCH (09:11)
[2020-03-02] MEDS: FENOFIBRATE,MICRONIZED 134 MG CAPSULE PO SCH (09:11)
[2020-03-02] MEDS: ASCORBIC ACID 500 MG TABLET PO SCH (09:11)
[2020-03-02] MEDS: ASPIRIN CHEWABLE 81 MG TABLET. PO SCH (09:11)
[2020-03-02] MEDS: LACTOBACILLUS RHAMNOSUS GG 1 CAPSULE. PO SCH ×2 (09:11→23:25)
[2020-03-02] MEDS: GABAPENTIN 100 MG CAPSULE. PO SCH ×2 (09:12→23:28)
[2020-03-02] MEDS: FERROUS SULFATE 325 MG TABLET. PO SCH ×4 (09:12→21:00)
[2020-03-02] MEDS: ISOSORBIDE MONONITRATE ER 30 MG TAB.ER.24H PO SCH (09:12)
[2020-03-02] MEDS: DOCUSATE SODIUM 100 MG CAPSULE. PO SCH ×2 (09:13→23:29)
[2020-03-02] MEDS: AMIODARONE HCL 200 MG TABLET. PO SCH (09:13)
[2020-03-02] MEDS: CITALOPRAM 20 MG TABLET. PO SCH (09:13)
[2020-03-02] MEDS: FUROSEMIDE 40 MG TABLET. PO SCH ×2 (09:13→15:32)
[2020-03-02] MEDS: PANTOPRAZOLE 40 MG TABLET.DR. PO SCH ×2 (09:13→17:27)
--- NOTE | 2020-03-02 09:51 | PDOC ---
PROGRESS NOTES Chief Complaint Chief Complaint DISCHARGE DX Acute Hypoxic Resp Failure secondary to recurrent PE Chest pain; atypical. AMI ruled out. Acute respiratory failure with possible PE. Stable multifocal infiltrate and small left pleural effusion, better characterized on the CT performed 02/25/2020. Bilateral consolidative lung infiltrates which may represent pneumonia or aspiration pneumonitis. Moderate size left-sided pleural effusion and associated compressive BY CT CHEST atelectasis of the left lower lobe. Small right-sided pleural effusion. Severe ICM/NICM: Acute on chronic systolic CHF with severe ICM/NICM: EF at 20-25%. appears compensated H/o VT with ICD discharge. On Amiodarone H/o VT with ICD discharge. DM2 HLD CADs/p PCI/LAD PAD: s/p percutaneous revascularization. CKD HTN H/o PE s/p IVC filter. Hypomagnesemia MICROCYTIC ANEMIA History of breast cancer with prior left mastectomy. Abnormal CXR with possible faint mild interstitial infiltrates rule out covid 19 PLAN full dose AC FE PANEL VQ with intermediated probability for PE Cardiac catheterization 10/2018 showed patent LAD stent and 80% stenosis in small-caliber diagonal branch, which was noted in prior cardiac catheterization and is being medically managed. EF at 20-25%. s/p AICD ([facility] [facility] A). Device check. On Entresto On Amiodarone for rhythm maintenance IVF filter removed 02/18/20. Has been off OAC Replace Mg Add imdur per cards continue lasix continue 02 apprec pulm and cards input dvt ppx: full dose ac NEPHROLOGY FOLLOWING PO AUGMENTIN, PULM OK WITH D/C 03/02 INR HIGH, NO WARFARIN TODAY 03/02, INR TOMORROW CALL TO PCP HOME HEALTH D/C PLANNING 33 MIN D/W RN History of Present Illness History of Present Illness Ms Rodriguez is a 69 yo obese patient with a BMI of 35. She has no significant tobacco history. She has cardiomyopathy with an EF of 20%-25%. She also has history of pulmonary embolism, which was in 2018. She was taken off her anticoagulation after her V/Q scan did not reveal any persistent pulmonary embolism. She also had an IVC filter, which the Hematology recommended to be removed. The patient's Dopplers were negative and followup V/Q scan was negative for PE. The patient underwent a removal of IVC filter on the 02/17. Returned to ED with shortness of breath. VQ scan consistent with right lower lobe mismatch, started on heparin and warfarin. 02/24: She is feeling wiped out, short of breath. No CP currently, still on 5L NCO2 currently. Afebrile. CT chest. Bilateral consolidative lung infiltrates which may represent pneumonia or aspiration pneumonitis. Moderate size left-sided pleural effusion and associated compressive atelectasis of the left lower lobe. Small right-sided pleural effusion. Right paratracheal lymphadenopathy which may be reactive in nature. Mild cardiomegaly. Calcified atheromatous disease of the coronary arteries. 35 mm fluid collection within the gallbladder fossa. Cholecystectomy clips are apparent. 02/25: She is still feeling poorly, weak. Iron 8. Cr down to 1.4. Afebrile. Based on CT results, starting antibiotics and iron today, lasix IV per cardiology. INR is 1, will need to adjust warfarin and ask SURGICAL LEAD evaluate based on left upper lobe and right lower lobe and aspiration may be occurring. 02/26: INR 1.5. Cr 1.6. She doesn't feel much better, still with cough. Started on zosyn. Esophogram today. 02/27: K 3.3, Cr 1.6, INR 1.7. Mag 1.8. Noted on esophagram with no reflux. Her cough is more productive today. She feels a little bit stronger. Back on home O2 3 L nasal cannula. Afebrile. Was unable to work with PT yesterday due to weakness. On home 3 L of O2. INR 2.1. She feels she may need acute rehab on discharge. Imdur held due to low BP this morning. Vitals Vitals Vital Signs Date Time Temp Pulse Resp B/P (MAP) Pulse Ox O2 Delivery O2 Flow Rate FiO2 03/02/20 09:13 77 113/56 03/02/20 07:00 98.3 18 98 Nasal Cannula 3.0 98.3 Physical Exam General: Alert, Oriented X3, Cooperative, No acute distress Heart: Regular rate Lungs: Clear, Other (decrease bs) Abdomen: Normal bowel sounds, Soft Extremities: No cyanosis Skin: No breakdown Labs LABS Laboratory Tests Test 03/01/20 11:50 03/01/20 16:37 03/01/20 17:37 03/01/20 20:37 Glucose (Fingerstick) 184 mg/dL (70-99) 69 mg/dL (70-99) 88 mg/dL (70-99) 170 mg/dL (70-99) Test 03/02/20 05:22 03/02/20 07:32 White Blood Count 8.3 x10^3/uL (4.0-11.0) Red Blood Count 3.45 x10^6/uL (3.50-5.40) Hemoglobin 7.9 g/dL (12.0-15.5) Hematocrit 24.4 % (36.0-47.0) Mean Corpuscular Volume 71 fL (79-100) Mean Corpuscular Hemoglobin 23 pg (25-35) Mean Corpuscular Hemoglobin Concent 33 g/dL (31-37) Red Cell Distribution Width 20.1 % (11.5-14.5) Platelet Count 310 x10^3/uL (140-400) Neutrophils (%) (Auto) 73 % (31-73) Lymphocytes (%) (Auto) 14 % (24-48) Monocytes (%) (Auto) 11 % (0-9) Eosinophils (%) (Auto) 1 % (0-3) Basophils (%) (Auto) 1 % (0-3) Neutrophils # (Auto) 6.0 x10^3/uL (1.8-7.7) Lymphocytes # (Auto) 1.2 x10^3/uL (1.0-4.8) Monocytes # (Auto) 0.9 x10^3/uL (0.0-1.1) Eosinophils # (Auto) 0.1 x10^3/uL (0.0-0.7) Basophils # (Auto) 0.0 x10^3/uL (0.0-0.2) Prothrombin Time 35.3 SEC (11.7-14.0) Prothromb Time International Ratio 3.5 (0.8-1.1) Sodium Level 139 mmol/L (136-145) Potassium Level 3.4 mmol/L (3.5-5.1) Chloride Level 102 mmol/L (98-107) Carbon Dioxide Level 30 mmol/L (21-32) Anion Gap 7 (6-14) Blood Urea Nitrogen 17 mg/dL (7-20) Creatinine 1.3 mg/dL (0.6-1.0) Estimated GFR (Cockcroft-Gault) 40.4 Glucose Level 105 mg/dL (70-99) Calcium Level 8.0 mg/dL (8.5-10.1) Phosphorus Level 3.1 mg/dL (2.6-4.7) Albumin 1.8 g/dL (3.4-5.0) Glucose (Fingerstick) 108 mg/dL (70-99) Assessment and Plan Assessmemt and Plan Problems Medical Problems: (1) Chest pain Status: Acute (2) Elevated d-dimer Status: Acute (3) Suspected 2019 novel coronavirus infection Status: Acute Comment Review of Relevant I have reviewed the following items juliette (where applicable) has been applied. Labs Laboratory Tests Test 02/29/20 11:48 02/29/20 16:59 02/29/20 21:09 03/01/20 05:22 Glucose (Fingerstick) 209 mg/dL (70-99) 125 mg/dL (70-99) 243 mg/dL (70-99) Prothrombin Time 29.4 SEC (11.7-14.0) Prothromb Time International Ratio 2.8 (0.8-1.1) Sodium Level 136 mmol/L (136-145) Potassium Level 3.7 mmol/L (3.5-5.1) Chloride Level 100 mmol/L (98-107) Carbon Dioxide Level 31 mmol/L (21-32) Anion Gap 5 (6-14) Blood Urea Nitrogen 21 mg/dL (7-20) Creatinine 1.5 mg/dL (0.6-1.0) Estimated GFR (Cockcroft-Gault) 34.2 Glucose Level 209 mg/dL (70-99) Calcium Level 8.0 mg/dL (8.5-10.1) Test 03/01/20 07:33 03/01/20 11:50 03/01/20 16:37 03/01/20 17:37 Glucose (Fingerstick) 199 mg/dL (70-99) 184 mg/dL (70-99) 69 mg/dL (70-99) 88 mg/dL (70-99) Test 03/01/20 20:37 03/02/20 05:22 03/02/20 07:32 Glucose (Fingerstick) 170 mg/dL (70-99) 108 mg/dL (70-99) White Blood Count 8.3 x10^3/uL (4.0-11.0) Red Blood Count 3.45 x10^6/uL (3.50-5.40) Hemoglobin 7.9 g/dL (12.0-15.5) Hematocrit 24.4 % (36.0-47.0) Mean Corpuscular Volume 71 fL (79-100) Mean Corpuscular Hemoglobin 23 pg (25-35) Mean Corpuscular Hemoglobin Concent 33 g/dL (31-37) Red Cell Distribution Width 20.1 % (11.5-14.5) Platelet Count 310 x10^3/uL (140-400) Neutrophils (%) (Auto) 73 % (31-73) Lymphocytes (%) (Auto) 14 % (24-48) Monocytes (%) (Auto) 11 % (0-9) Eosinophils (%) (Auto) 1 % (0-3) Basophils (%) (Auto) 1 % (0-3) Neutrophils # (Auto) 6.0 x10^3/uL (1.8-7.7) Lymphocytes # (Auto) 1.2 x10^3/uL (1.0-4.8) Monocytes # (Auto) 0.9 x10^3/uL (0.0-1.1) Eosinophils # (Auto) 0.1 x10^3/uL (0.0-0.7) Basophils # (Auto) 0.0 x10^3/uL (0.0-0.2) Prothrombin Time 35.3 SEC (11.7-14.0) Prothromb Time International Ratio 3.5 (0.8-1.1) Sodium Level 139 mmol/L (136-145) Potassium Level 3.4 mmol/L (3.5-5.1) Chloride Level 102 mmol/L (98-107) Carbon Dioxide Level 30 mmol/L (21-32) Anion Gap 7 (6-14) Blood Urea Nitrogen 17 mg/dL (7-20) Creatinine 1.3 mg/dL (0.6-1.0) Estimated GFR (Cockcroft-Gault) 40.4 Glucose Level 105 mg/dL (70-99) Calcium Level 8.0 mg/dL (8.5-10.1) Phosphorus Level 3.1 mg/dL (2.6-4.7) Albumin 1.8 g/dL (3.4-5.0) Laboratory Tests Test 03/01/20 11:50 03/01/20 16:37 03/01/20 17:37 03/01/20 20:37 Glucose (Fingerstick) 184 mg/dL (70-99) 69 mg/dL (70-99) 88 mg/dL (70-99) 170 mg/dL (70-99) Test 03/02/20 05:22 03/02/20 07:32 White Blood Count 8.3 x10^3/uL (4.0-11.0) Red Blood Count 3.45 x10^6/uL (3.50-5.40) Hemoglobin 7.9 g/dL (12.0-15.5) Hematocrit 24.4 % (36.0-47.0) Mean Corpuscular Volume 71 fL (79-100) Mean Corpuscular Hemoglobin 23 pg (25-35) Mean Corpuscular Hemoglobin Concent 33 g/dL (31-37) Red Cell Distribution Width 20.1 % (11.5-14.5) Platelet Count 310 x10^3/uL (140-400) Neutrophils (%) (Auto) 73 % (31-73) Lymphocytes (%) (Auto) 14 % (24-48) Monocytes (%) (Auto) 11 % (0-9) Eosinophils (%) (Auto) 1 % (0-3) Basophils (%) (Auto) 1 % (0-3) Neutrophils # (Auto) 6.0 x10^3/uL (1.8-7.7) Lymphocytes # (Auto) 1.2 x10^3/uL (1.0-4.8) Monocytes # (Auto) 0.9 x10^3/uL (0.0-1.1) Eosinophils # (Auto) 0.1 x10^3/uL (0.0-0.7) Basophils # (Auto) 0.0 x10^3/uL (0.0-0.2) Prothrombin Time 35.3 SEC (11.7-14.0) Prothromb Time International Ratio 3.5 (0.8-1.1) Sodium Level 139 mmol/L (136-145) Potassium Level 3.4 mmol/L (3.5-5.1) Chloride Level 102 mmol/L (98-107) Carbon Dioxide Level 30 mmol/L (21-32) Anion Gap 7 (6-14) Blood Urea Nitrogen 17 mg/dL (7-20) Creatinine 1.3 mg/dL (0.6-1.0) Estimated GFR (Cockcroft-Gault) 40.4 Glucose Level 105 mg/dL (70-99) Calcium Level 8.0 mg/dL (8.5-10.1) Phosphorus Level 3.1 mg/dL (2.6-4.7) Albumin 1.8 g/dL (3.4-5.0) Glucose (Fingerstick) 108 mg/dL (70-99) Medications Current Medications Aspirin (Erecruit Aspirin) 325 mg 1X ONCE PO ; Start 02/22/20 at 22:30; Stop 02/22/20 at 22:26; Status DC Acetaminophen (Tylenol) 500 mg 1X ONCE PO Last administered on 02/22/20at 22:34; Start 02/22/20 at 23:00; Stop 02/22/20 at 23:01; Status DC Ondansetron HCl (Zofran) 4 mg PRN Q8HRS PRN IV NAUSEA/VOMITING 1ST CHOICE; Start 02/23/20 at 00:45; Stop 02/24/20 at 00:44; Status DC Insulin Human Lispro (HumaLOG) 0-5 UNITS TIDWMEALS SQ Last administered on 02/27/20at 18:20; Start 02/23/20 at 08:00 Dextrose (Dextrose 50%-Water Syringe) 12.5 gm PRN Q15MIN PRN IV SEE COMMENTS; Start 02/23/20 at 00:45 Magnesium Sulfate 50 ml @ 25 mls/hr 1X ONCE IV Last administered on 02/23/20at 09:38; Start 02/23/20 at 09:15; Stop 02/23/20 at 11:14; Status DC Acetaminophen (Tylenol) 650 mg PRN Q6HRS PRN PO MILD PAIN / TEMP > 100.3'F Last administered on 02/25/20at 13:49; Start 02/23/20 at 12:45 Alprazolam (Xanax) 0.25 mg PRN BID PRN PO ANXIETY / AGITATION Last administered on 03/01/20 19:28; Start 02/23/20 at 12:45 Amiodarone HCl (Cordarone) 200 mg DAILY PO Last administered on 03/02/20 09:13; Start 02/23/20 at 14:00 Aspirin (Aspirin Chewable) 81 mg DAILY PO Last administered on 03/02/20 09:11; Start 02/23/20 at 14:00 Atorvastatin Calcium (Lipitor) 40 mg HS PO Last administered on 03/01/20 20:38; Start 02/23/20 at 21:00 Citalopram Hydrobromide (CeleXA) 20 mg DAILY08 PO Last administered on 03/02/20 09:13; Start 02/23/20 at 14:00 Docusate Sodium (Colace) 100 mg BID PO Last administered on 03/02/20 09:13; Start 02/23/20 at 14:00 Furosemide (Lasix) 20 mg BID92 PO Last administered on 02/25/20 13:50; Start 02/23/20 at 14:00; Stop 02/25/20 at 13:51; Status DC Gabapentin (Neurontin) 100 mg BID PO Last administered on 03/02/20 09:12; Start 02/23/20 at 14:00 Acetaminophen/ Hydrocodone Bitart (Lortab 7.5/325) 1 tab PRN Q4HRS PRN PO MODERATE PAIN Last administered on 03/02/20 03:09; Start 02/23/20 at 12:45 Levothyroxine Sodium (Synthroid) 100 mcg DAILY06 PO Last administered on 03/02/20 05:00; Start 02/23/20 at 14:00 Montelukast Sodium (Singulair) 10 mg HS PO Last administered on 03/01/20 20:38; Start 02/23/20 at 21:00 Pantoprazole Sodium (Protonix) 40 mg DAILYAC PO Last administered on 02/27/20 09:02; Start 02/23/20 at 16:30; Stop 02/27/20 at 14:50; Status DC Fenofibrate (Lofibra) 134 mg DAILY PO Last administered on 03/02/20 09:11; Start 02/23/20 at 14:00 Insulin Glargine (Lantus Syringe) 35 unit QHS SQ Last administered on 03/01/20at 20:42; Start 02/23/20 at 21:00 Sacubitril/ Valsartan (Entresto 49 Mg-51 Mg) 1 tab DAILY PO Last administered on 03/02/20at 09:11; Start 02/23/20 at 14:00 Heparin Sodium (Porcine) (Heparin Sodium) 4,000 unit 1X ONCE IV Last administered on 02/23/20at 15:05; Start 02/23/20 at 14:30; Stop 02/23/20 at 14:31; Status DC Heparin Sodium/ Dextrose 250 ml @ 0 mls/hr CONT PRN IV PER PROTOCOL Last administered on 02/24/20at 04:34; Start 02/23/20 at 14:30; Stop 02/24/20 at 12:46; Status DC Heparin Sodium (Porcine) (Heparin Sodium) 2,750 unit PRN Q6HRS PRN IV FOR UFH LEVEL LESS THAN 0.2 Last administered on 02/23/20at 22:28; Start 02/23/20 at 14:30; Stop 02/24/20 at 12:46; Status DC Heparin Sodium (Porcine) (Heparin Sodium) 1,350 unit PRN Q6HRS PRN IV FOR UFH LEVEL 0.2 - 0.29; Start 02/23/20 at 14:30; Stop 02/24/20 at 12:46; Status DC Insulin Human Lispro (HumaLOG) 10 units 1X ONCE SQ Last administered on 02/23/20at 16:46; Start 02/23/20 at 16:45; Stop 02/23/20 at 16:46; Status DC Isosorbide Mononitrate (Imdur) 30 mg DAILY PO Last administered on 03/02/20at 09:12; Start 02/24/20 at 09:00 Info (Anti-Coagulation Monitoring By Pharmacy) 1 each PRN DAILY PRN MC SEE COMMENTS Last administered on 02/26/20at 12:38; Start 02/24/20 at 12:15; Stop 02/29/20 at 10:53; Status DC Insulin Human Regular (HumuLIN R VIAL) 35 unit TID SQ ; Start 02/24/20 at 14:00; Stop 02/24/20 at 12:23; Status DC Insulin Human Lispro (HumaLOG) 35 units TIDWMEALS SQ Last administered on 03/02/20at 09:20; Start 02/24/20 at 13:00 Apixaban (Eliquis) 10 mg BID PO ; Start 02/24/20 at 13:00; Stop 03/01/20 at 21:01; Status Cancel Apixaban (Eliquis) 5 mg BID PO ; Start 03/02/20 at 09:00; Status Cancel Warfarin Sodium (Coumadin Per Pharmacy) 1 each PRN DAILY PRN MC SEE COMMENTS Last administered on 03/01/20at 12:46; Start 02/24/20 at 13:15 Warfarin Sodium (Coumadin) 5 mg 1X WARF ONCE PO Last administered on 02/24/20at 15:03; Start 02/24/20 at 16:00; Stop 02/24/20 at 16:01; Status DC Heparin Sodium/ Dextrose 250 ml @ 0 mls/hr CONT PRN IV PER PROTOCOL Last administered on 02/29/20at 00:30; Start 02/24/20 at 13:45; Stop 02/29/20 at 09:58; Status DC Heparin Sodium (Porcine) (Heparin Sodium) 2,750 unit PRN Q6HRS PRN IV FOR UFH LEVEL LESS THAN 0.2 Last administered on 02/24/20at 16:34; Start 02/24/20 at 13:45; Stop 02/29/20 at 09:58; Status DC Heparin Sodium (Porcine) (Heparin Sodium) 1,350 unit PRN Q6HRS PRN IV FOR UFH LEVEL 0.2 - 0.29 Last administered on 02/27/20at 06:09; Start 02/24/20 at 13:45; Stop 02/29/20 at 09:58; Status DC Furosemide (Lasix) 40 mg BID92 PO Last administered on 03/02/20at 09:13; Start 02/25/20 at 14:00 Warfarin Sodium (Coumadin) 5 mg 1X WARF ONCE PO Last administered on 02/25/20at 17:14; Start 02/25/20 at 16:00; Stop 02/25/20 at 16:01; Status DC Piperacillin Sod/ Tazobactam Sod 4.5 gm/Sodium Chloride 100 ml @ 200 mls/hr 1X ONCE IV Last administered on 02/26/20at 12:34; Start 02/26/20 at 12:00; Stop 02/26/20 at 12:29; Status DC Piperacillin Sod/ Tazobactam Sod (Zosyn Per Pharmacy) 1 each PRN DAILY PRN MC SEE COMMENTS; Start 02/26/20 at 11:30 Iron Sucrose 200 mg/Sodium Chloride 110 ml @ 55 mls/hr 1X ONCE IV ; Start 02/26/20 at 12:00; Stop 02/26/20 at 15:27; Status DC Piperacillin Sod/ Tazobactam Sod 4.5 gm/Sodium Chloride 100 ml @ 200 mls/hr Q6HRS IV Last administered on 02/28/20at 06:18; Start 02/26/20 at 18:00; Stop 02/28/20 at 07:12; Status DC Warfarin Sodium (Coumadin) 7.5 mg 1X WARF ONCE PO Last administered on 02/26/20at 15:48; Start 02/26/20 at 16:00; Stop 02/26/20 at 16:01; Status DC Ferrous Sulfate (Feosol) 325 mg TIDWMEALHC PO Last administered on 03/02/20at 09:12; Start 02/26/20 at 17:00 Ascorbic Acid (Vitamin C) 500 mg DAILY PO Last administered on 03/02/20at 09:11; Start 02/27/20 at 09:00 Warfarin Sodium (Coumadin) 7.5 mg 1X WARF ONCE PO Last administered on 02/27/20at 18:13; Start 02/27/20 at 16:00; Stop 02/27/20 at 16:01; Status DC Lactobacillus Rhamnosus (Culturelle) 1 cap BID PO Last administered on 03/02/20at 09:11; Start 02/27/20 at 21:00 Barium Sulfate (Varibar Thin Liquid Apple) 148 gm 1X ONCE PO Last administered on 02/27/20at 13:45; Start 02/27/20 at 12:30; Stop 02/27/20 at 12:31; Status DC Barium Sulfate (Liquid E-Z Paque) 355 ml 1X ONCE PO Last administered on 02/27/20at 13:55; Start 02/27/20 at 13:00; Stop 02/27/20 at 13:01; Status DC Barium Sulfate (E-Z-Hd) 340 gm 1X ONCE PO ; Start 02/27/20 at 13:00; Stop 02/27/20 at 13:01; Status DC Simethicone/ Sodium Bicarb/ Citric Ac (E-Z-Gas) 1 packet 1X ONCE PO ; Start 02/27/20 at 13:00; Stop 02/27/20 at 13:01; Status DC Pantoprazole Sodium (Protonix) 40 mg BIDAC PO Last administered on 03/02/20at 09:13; Start 02/27/20 at 16:30 Warfarin Sodium (Coumadin) 7.5 mg 1X WARF ONCE PO Last administered on 02/28/20at 16:43; Start 02/28/20 at 16:00; Stop 02/28/20 at 16:01; Status DC Piperacillin Sod/ Tazobactam Sod 3.375 gm/Sodium Chloride 50 ml @ 100 mls/hr Q6HRS IV Last administered on 03/02/20at 05:00; Start 02/28/20 at 12:00 Potassium Chloride (Klor-Con) 40 meq 1X ONCE PO Last administered on 02/28/20at 08:35; Start 02/28/20 at 08:30; Stop 02/28/20 at 08:31; Status DC Magnesium Sulfate/ Dextrose 100 ml @ 100 mls/hr 1X ONCE IV Last administered on 02/28/20at 12:27; Start 02/28/20 at 12:00; Stop 02/28/20 at 12:59; Status DC Guaifenesin (Robitussin Dm) 10 ml PRN Q6HRS PRN PO COUGH; Start 02/28/20 at 12:00 Warfarin Sodium (Coumadin) 7.5 mg 1X WARF ONCE PO Last administered on 02/29/20at 16:30; Start 02/29/20 at 16:00; Stop 02/29/20 at 16:01; Status DC Warfarin Sodium (Coumadin) 5 mg 1X WARF ONCE PO Last administered on 03/01/20at 16:29; Start 03/01/20 at 16:00; Stop 03/01/20 at 16:01; Status DC Active Scripts Active Colace (Docusate Sodium) 100 Mg Capsule 1 Cap PO BID 30 Days Alprazolam 0.25 Mg Tablet 1 Tab PO BID PRN Reported Entresto 97 mg-103 mg Tablet (Sacubitril/Valsartan) 1 Each Tablet 0.5 Each PO DAILY Aspirin 81 Mg Tab.chew 81 Mg PO DAILY Citalopram Hbr (Citalopram Hydrobromide) 20 Mg Tablet 1 Tab PO DAILY08 Hydrocodone-Apap 7.5-325 (Hydrocodone Bit/Acetaminophen) 1 Tab Tablet 1 Tab PO Q4HRS PRN Furosemide 20 Mg Tablet 20 Mg PO BID Amiodarone Hcl 200 Mg Tablet 1 Tab PO DAILY Montelukast Sodium Tablet (Montelukast Sodium) 10 Mg Tablet 10 Mg PO HS Levothyroxine Sodium 100 Mcg Tablet 1 Tab PO DAILY Proair Hfa Inhaler (Albuterol Sulfate) 8.5 Gm Hfa.aer.ad 2 Puff IH PRN Q4-6HRS Tylenol (Acetaminophen) 325 Mg Tablet 650 Mg PO Fenofibrate (Fenofibrate Nanocrystallized) 145 Mg Tablet 1 Tab PO DAILY Humalog (Insulin Lispro) 100 Unit/1 Ml Vial 35 Unit SQ TID Lantus Solostar (Insulin Glargine,Hum.rec.anlog) 100 Unit/1 Ml Insuln.pen 35 Unit SQ HS Pantoprazole Sodium (Pantoprazole Sodium) 40 Mg Tablet.dr 40 Mg PO DAILY Atorvastatin Calcium 40 Mg Tablet 40 Mg PO HS Gabapentin (Gabapentin) 100 Mg Capsule 100 Mg PO BID Vitals/I & O Vital Sign - Last 24 Hours 03/01/20 03/01/20 03/01/20 03/01/20 10:39 11:00 12:36 15:00 Temp 98.0 97.8 98.0 97.8 Pulse 85 86 84 Resp 20 20 B/P (MAP) 115/54 126/57 (80) 102/50 (67) 125/59 (81) Pulse Ox 97 99 O2 Delivery Nasal Cannula Nasal Cannula O2 Flow Rate 3.0 3.0 03/01/20 03/01/20 03/01/20 03/01/20 15:02 17:44 19:34 19:50 Temp 99.0 99.0 Pulse 84 88 Resp 18 B/P (MAP) 111/49 97/50 (66) 112/57 (75) Pulse Ox 97 O2 Delivery Nasal Cannula Nasal Cannula O2 Flow Rate 3.0 3.0 03/01/20 03/02/20 03/02/20 03/02/20 22:28 02:44 03:09 04:09 Temp 99.1 97.8 99.1 97.8 Pulse 83 Resp 20 18 18 20 B/P (MAP) 104/52 (69) 125/68 (87) Pulse Ox 97 97 O2 Delivery Nasal Cannula Nasal Cannula O2 Flow Rate 3.0 3.0 03/02/20 03/02/20 03/02/20 03/02/20 07:00 09:11 09:12 09:13 Temp 98.3 98.3 Pulse 77 77 77 77 Resp 18 B/P (MAP) 113/56 (75) 113/56 113/56 113/56 Pulse Ox 98 O2 Delivery Nasal Cannula O2 Flow Rate 3.0 Intake and Output 03/01/20 03/01/20 03/02/20 15:00 23:00 07:00 Intake Total 450 ml 120 ml 400 ml Output Total 300 ml Balance 450 ml 120 ml 100 ml FREDO WOO MD Mar 02, 2020 09:51
[2020-03-02 11:00] VITALS: BP 110/53
[2020-03-02] MEDS ORDERED: POTASSIUM CHLORIDE 20 MEQ TABLET.ER. PO SCH (11:15)
--- NOTE | 2020-03-02 11:15 | PDOC ---
SUBJECTIVE ROS no new complaints OBJECTIVE Vital Signs Vital Signs Date Time Temp Pulse Resp B/P (MAP) Pulse Ox O2 Delivery O2 Flow Rate FiO2 03/02/20 09:13 77 113/56 03/02/20 08:00 Nasal Cannula 3.0 03/02/20 07:00 98.3 18 98 98.3 I & 0 l Intake and Output 03/02/20 07:00 Intake Total 970 ml Output Total 300 ml Balance 670 ml Intake Oral 870 ml IV Total 100 ml Output Urine Total 300 ml # Voids 2 # Bowel Movements 1 PHYSICAL EXAM Physical Exam General Appearance: no apparent distress HEEN -OM moist, On chronic o2 3 lts at home Respiratory: decreased breath sounds, Non labored Heart: S1S2 Abdomen: soft, bowel sounds present, Obese Genitourinary: No frazier, No cva or sp tenderness Neurology: alert, oriented, grossly normal Skin: warm, No rash DIAGNOSIS/ASSESSMENT Assessment & Plan CKD stage 3 Baseline Cr 1.5-1.8 currently stable at 1.3 Pt reports never seen Neph as OP, was scheduled to see me as initial consult but hospitalized Supportive care, avoid nephrotoxins , Follow up appt with our office (Routine/Nonurgent) post discharge Hyponatremia - resolved Hypokalemia - replace HTN - Stable DM II Dyspnea - AC hypoxic Resp failure, stable Recurrent Pulm emboli Anemia- per Primary CMP with EF 20-25%, On lasix PO BID , follow with cardiology CAD with Hx of stents COMMENT/RELEVANT DATA Meds Current Medications Medications (Trade) Dose Ordered Sig/Lester Start Time Stop Time Status Last Admin Dose Admin Acetaminophen (Tylenol) 650 mg PRN Q6HRS PRN 02/23/20 12:45 02/25/20 13:49 650 MG Acetaminophen/ Hydrocodone Bitart (Lortab 7.5/325) 1 tab PRN Q4HRS PRN 02/23/20 12:45 03/02/20 03:09 1 TAB Alprazolam (Xanax) 0.25 mg PRN BID PRN 02/23/20 12:45 03/01/20 19:28 0.25 MG Amiodarone HCl (Cordarone) 200 mg DAILY 02/23/20 14:00 03/02/20 09:13 200 MG Apixaban (Eliquis) 5 mg BID 03/02/20 09:00 Cancel Ascorbic Acid (Vitamin C) 500 mg DAILY 02/27/20 09:00 03/02/20 09:11 500 MG Aspirin (Aspirin Chewable) 81 mg DAILY 02/23/20 14:00 03/02/20 09:11 81 MG Aspirin (Brandee Aspirin) 325 mg 1X ONCE 02/22/20 22:30 02/22/20 22:26 DC Atorvastatin Calcium (Lipitor) 40 mg HS 02/23/20 21:00 03/01/20 20:38 40 MG Barium Sulfate (E-Z-Hd) 340 gm 1X ONCE 02/27/20 13:00 02/27/20 13:01 DC Barium Sulfate (Liquid E-Z Paque) 355 ml 1X ONCE 02/27/20 13:00 02/27/20 13:01 DC 02/27/20 13:55 355 ML Barium Sulfate (Varibar Thin Liquid Apple) 148 gm 1X ONCE 02/27/20 12:30 02/27/20 12:31 DC 02/27/20 13:45 148 GM Citalopram Hydrobromide (CeleXA) 20 mg DAILY08 02/23/20 14:00 03/02/20 09:13 20 MG Dextrose (Dextrose 50%-Water Syringe) 12.5 gm PRN Q15MIN PRN 02/23/20 00:45 Docusate Sodium (Colace) 100 mg BID 02/23/20 14:00 03/02/20 09:13 100 MG Fenofibrate (Lofibra) 134 mg DAILY 02/23/20 14:00 03/02/20 09:11 134 MG Ferrous Sulfate (Feosol) 325 mg TIDWMEALHC 02/26/20 17:00 03/02/20 09:12 325 MG Furosemide (Lasix) 40 mg BID92 02/25/20 14:00 03/02/20 09:13 40 MG Gabapentin (Neurontin) 100 mg BID 02/23/20 14:00 03/02/20 09:12 100 MG Guaifenesin (Robitussin Dm) 10 ml PRN Q6HRS PRN 02/28/20 12:00 Heparin Sodium (Porcine) (Heparin Sodium) 1,350 unit PRN Q6HRS PRN 02/24/20 13:45 02/29/20 09:58 DC 02/27/20 06:09 1,350 UNIT Heparin Sodium/ Dextrose 250 ml @ 0 mls/hr CONT PRN 02/24/20 13:45 02/29/20 09:58 DC 02/29/20 00:30 21 MLS/HR Info (Anti-Coagulation Monitoring By Pharmacy) 1 each PRN DAILY PRN 02/24/20 12:15 02/29/20 10:53 DC 02/26/20 12:38 1 EACH Insulin Glargine (Lantus Syringe) 35 unit QHS 02/23/20 21:00 03/01/20 20:42 35 UNIT Insulin Human Lispro (HumaLOG) 35 units TIDWMEALS 02/24/20 13:00 03/02/20 09:20 10 UNITS Insulin Human Regular (HumuLIN R VIAL) 35 unit TID 02/24/20 14:00 02/24/20 12:23 DC Iron Sucrose 200 mg/Sodium Chloride 110 ml @ 55 mls/hr 1X ONCE 02/26/20 12:00 02/26/20 15:27 DC Isosorbide Mononitrate (Imdur) 30 mg DAILY 02/24/20 09:00 03/02/20 09:12 30 MG Lactobacillus Rhamnosus (Culturelle) 1 cap BID 02/27/20 21:00 03/02/20 09:11 1 CAP Levothyroxine Sodium (Synthroid) 100 mcg DAILY06 02/23/20 14:00 03/02/20 05:00 100 MCG Magnesium Sulfate 50 ml @ 25 mls/hr 1X ONCE 02/23/20 09:15 02/23/20 11:14 DC 02/23/20 09:38 25 MLS/HR Magnesium Sulfate/ Dextrose 100 ml @ 100 mls/hr 1X ONCE 02/28/20 12:00 02/28/20 12:59 DC 02/28/20 12:27 100 MLS/HR Montelukast Sodium (Singulair) 10 mg HS 02/23/20 21:00 03/01/20 20:38 10 MG Ondansetron HCl (Zofran) 4 mg PRN Q8HRS PRN 02/23/20 00:45 02/24/20 00:44 DC Pantoprazole Sodium (Protonix) 40 mg BIDAC 02/27/20 16:30 03/02/20 09:13 40 MG Piperacillin Sod/ Tazobactam Sod (Zosyn Per Pharmacy) 1 each PRN DAILY PRN 02/26/20 11:30 Piperacillin Sod/ Tazobactam Sod 3.375 gm/Sodium Chloride 50 ml @ 100 mls/hr Q6HRS 02/28/20 12:00 03/02/20 05:00 100 MLS/HR Piperacillin Sod/ Tazobactam Sod 4.5 gm/Sodium Chloride 100 ml @ 200 mls/hr Q6HRS 02/26/20 18:00 02/28/20 07:12 DC 02/28/20 06:18 200 MLS/HR Potassium Chloride (Klor-Con) 40 meq 1X ONCE 02/28/20 08:30 02/28/20 08:31 DC 02/28/20 08:35 40 MEQ Sacubitril/ Valsartan (Entresto 49 Mg-51 Mg) 1 tab DAILY 02/23/20 14:00 03/02/20 09:11 1 TAB Simethicone/ Sodium Bicarb/ Citric Ac (E-Z-Gas) 1 packet 1X ONCE 02/27/20 13:00 02/27/20 13:01 DC Warfarin Sodium (Coumadin Per Pharmacy) 1 each PRN DAILY PRN 02/24/20 13:15 03/01/20 12:46 1 EACH Warfarin Sodium (Coumadin) 5 mg 1X WARF ONCE 03/01/20 16:00 03/01/20 16:01 DC 03/01/20 16:29 5 MG Lab Laboratory Tests Test 03/01/20 11:50 03/01/20 16:37 03/01/20 17:37 03/01/20 20:37 Glucose (Fingerstick) 184 mg/dL (70-99) 69 mg/dL (70-99) 88 mg/dL (70-99) 170 mg/dL (70-99) Test 03/02/20 05:22 03/02/20 07:32 White Blood Count 8.3 x10^3/uL (4.0-11.0) Red Blood Count 3.45 x10^6/uL (3.50-5.40) Hemoglobin 7.9 g/dL (12.0-15.5) Hematocrit 24.4 % (36.0-47.0) Mean Corpuscular Volume 71 fL (79-100) Mean Corpuscular Hemoglobin 23 pg (25-35) Mean Corpuscular Hemoglobin Concent 33 g/dL (31-37) Red Cell Distribution Width 20.1 % (11.5-14.5) Platelet Count 310 x10^3/uL (140-400) Neutrophils (%) (Auto) 73 % (31-73) Lymphocytes (%) (Auto) 14 % (24-48) Monocytes (%) (Auto) 11 % (0-9) Eosinophils (%) (Auto) 1 % (0-3) Basophils (%) (Auto) 1 % (0-3) Neutrophils # (Auto) 6.0 x10^3/uL (1.8-7.7) Lymphocytes # (Auto) 1.2 x10^3/uL (1.0-4.8) Monocytes # (Auto) 0.9 x10^3/uL (0.0-1.1) Eosinophils # (Auto) 0.1 x10^3/uL (0.0-0.7) Basophils # (Auto) 0.0 x10^3/uL (0.0-0.2) Prothrombin Time 35.3 SEC (11.7-14.0) Prothromb Time International Ratio 3.5 (0.8-1.1) Sodium Level 139 mmol/L (136-145) Potassium Level 3.4 mmol/L (3.5-5.1) Chloride Level 102 mmol/L (98-107) Carbon Dioxide Level 30 mmol/L (21-32) Anion Gap 7 (6-14) Blood Urea Nitrogen 17 mg/dL (7-20) Creatinine 1.3 mg/dL (0.6-1.0) Estimated GFR (Cockcroft-Gault) 40.4 Glucose Level 105 mg/dL (70-99) Calcium Level 8.0 mg/dL (8.5-10.1) Phosphorus Level 3.1 mg/dL (2.6-4.7) Albumin 1.8 g/dL (3.4-5.0) Glucose (Fingerstick) 108 mg/dL (70-99) Results All relevant outside records, renal labs, imaging studies, telemetry/EKG's were reviewed. Justicifation of Admission Dx: Justifications for Admission: Justification of Admission Dx: Yes JACEY,NAYA MD Mar 02, 2020 11:15
[2020-03-02] MEDS ORDERED: POTASSIUM CHLORIDE 20 MEQ TABLET.ER. PO ONE (12:00)
--- NOTE | 2020-03-02 12:36 | NUR ---
SS following up with discharge planning. SS reviewed pt chart and discussed with pt RN. Pt INR 3.5 today. Pt has home oxygen. PT/OT recommended home healthcare and pt declined. Per RN, possible discharge to home today. Physician notified. SS will continue to follow for discharge planning.
--- NOTE | 2020-03-02 12:42 | NUR ---
Pharmacy Warfarin Dosing Note S:Pharmacy consulted to assist with anticoagulation therapy started 02/24/20 with target INR: 2 -3 O:VALENTINO SINGH is a 69 year old F with DVT/PE LABS: Last INR: 3.5 Last HGB: 7.9 Last HCT: 24.4 Last PLT: 310 Last dose of 5 mg given on 03/01/20 at 1629 Previous Regimen: Vitamin K given: N Drug Interaction Changes: Same Interacting Drug Ongoing Drug Interactions: amiodarone, citalopram, fenofibrate A:INR of 3.5 is above desired range. Target range for this patient is: 2 -3 P: Warfarin dose: Hold Today at 1600 Bridge Therapy: None . Next INR due IN AM Pharmacy anticoagulation service will continue to follow. JULIETH PAN [facility], 03/02/20 [id number]
[2020-03-02] MEDS: ALPRAZolam 0.25 MG TABLET PO PRN ×2 (12:58→23:27)
--- NOTE | 2020-03-02 14:18 | PDOC3 ---
Discharge Summary Date of Admission: Feb 23, 2020 Date of Discharge: Mar 02, 2020 Follow-Up: 1-2 days Admitting Diagnosis comment: DISCHARGE DX Acute Hypoxic Resp Failure secondary to recurrent PE Chest pain; atypical. AMI ruled out. Acute respiratory failure with possible PE. Stable multifocal infiltrate and small left pleural effusion, better characterized on the CT performed 02/25/2020. Bilateral consolidative lung infiltrates which may represent pneumonia or aspiration pneumonitis. Moderate size left-sided pleural effusion and associated compressive BY CT CHEST atelectasis of the left lower lobe. Small right-sided pleural effusion. Severe ICM/NICM: Acute on chronic systolic CHF with severe ICM/NICM: EF at 20-25%. appears compensated H/o VT with ICD discharge. On Amiodarone H/o VT with ICD discharge. DM2 HLD CADs/p PCI/LAD PAD: s/p percutaneous revascularization. CKD HTN H/o PE s/p IVC filter. Hypomagnesemia MICROCYTIC ANEMIA History of breast cancer with prior left mastectomy. Abnormal CXR with possible faint mild interstitial infiltrates rule out covid 19 PLAN full dose AC FE PANEL VQ with intermediated probability for PE Cardiac catheterization 10/2018 showed patent LAD stent and 80% stenosis in small-caliber diagonal branch, which was noted in prior cardiac catheterization and is being medically managed. EF at 20-25%. s/p AICD ([employer] A). Device check. On Entresto On Amiodarone for rhythm maintenance IVF filter removed 02/18/20. Has been off OAC Replace Mg Add imdur per cards continue lasix continue 02 apprec pulm and cards input dvt ppx: full dose ac NEPHROLOGY FOLLOWING PO AUGMENTIN, PULM OK WITH D/C 03/02 INR HIGH, NO WARFARIN TODAY 03/02, INR TOMORROW CALL TO PCP HOME HEALTH, HOME O2 D/C PLANNING 33 MIN D/W RN History of Present Illness History of Present Illness Ms Rodriguez is a 69 yo obese patient with a BMI of 35. She has no significant tobacco history. She has cardiomyopathy with an EF of 20%-25%. She also has history of pulmonary embolism, which was in 2019. She was taken off her anticoagulation after her V/Q scan did not reveal any persistent pulmonary emb olism. She also had an IVC filter, which the Hematology recommended to be removed. The patient's Dopplers were negative and followup V/Q scan was negative for PE. The patient underwent a removal of IVC filter on the 02/17. Returned to ED with shortness of breath. VQ scan consistent with right lower lobe mismatch, started on heparin and warfarin. 02/24: She is feeling wiped out, short of breath. No CP currently, still on 5L NCO2 currently. Afebrile. CT chest. Bilateral consolidative lung infiltrates which may represent pneumonia or aspiration pneumonitis. Moderate size left-sided pleural effusion and associated compressive atelectasis of the left lower lobe. Small right-sided pleural effusion. Right paratracheal lymphadenopathy which may be reactive in nature. Mild cardiomegaly. Calcified atheromatous disease of the coronary arteries. 35 mm fluid collection within the gallbladder fossa. Cholecystectomy clips are apparent. 02/25: She is still feeling poorly, weak. Iron 8. Cr down to 1.4. Afebrile. Based on CT results, starting antibiotics and iron today, lasix IV per cardiology. INR is 1, will need to adjust warfarin and ask BATTING MACHINE OPERATOR evaluate based on left upper lobe and right lower lobe and aspiration may be occurring. 02/26: INR 1.5. Cr 1.6. She doesn't feel much better, still with cough. Started on zosyn. Esophogram today. 02/27: K 3.3, Cr 1.6, INR 1.7. Mag 1.8. Noted on esophagram with no reflux. Her cough is more productive today. 03/02 She feels stronger. Back on home O2 3 L nasal cannula. PULM OK WITH D/C TODAY Vitals Vitals Vital Signs Date Time Temp Pulse Resp B/P (MAP) Pulse Ox O2 Delivery O2 Flow Rate FiO2 03/02/20 09:13 77 113/56 03/02/20 07:00 98.3 18 98 Nasal Cannula 3.0 98.3 Physical Exam General: Alert, Oriented X3, Cooperative, No acute distress Heart: Regular rate Lungs: Clear, Other (decrease bs) Abdomen: Normal bowel sounds, Soft Extremities: No cyanosis Skin: No breakdown FINAL DIAGNOSIS Problems Medical Problems: (1) Chest pain Status: Acute (2) Elevated d-dimer Status: Acute (3) Suspected 2019 novel coronavirus infection Status: Acute Brief Hospital Course Ms. Rodriguez is a 69 old [sex] who presented with [ACUTE HYPOXIC RESP FAILURE ] CONDITION AT DISCHARGE: Improved Discharge Medications Current Medications Aspirin (Brandee Aspirin) 325 mg 1X ONCE PO ; Start 02/22/20 at 22:30; Stop 02/22/20 at 22:26; Status DC Acetaminophen (Tylenol) 500 mg 1X ONCE PO Last administered on 02/22/20at 22:34; Start 02/22/20 at 23:00; Stop 02/22/20 at 23:01; Status DC Ondansetron HCl (Zofran) 4 mg PRN Q8HRS PRN IV NAUSEA/VOMITING 1ST CHOICE; Start 02/23/20 at 00:45; Stop 02/24/20 at 00:44; Status DC Insulin Human Lispro (HumaLOG) 0-5 UNITS TIDWMEALS SQ Last administered on 02/27/20at 18:20; Start 02/23/20 at 08:00 Dextrose (Dextrose 50%-Water Syringe) 12.5 gm PRN Q15MIN PRN IV SEE COMMENTS; Start 02/23/20 at 00:45 Magnesium Sulfate 50 ml @ 25 mls/hr 1X ONCE IV Last administered on 02/23/20at 09:38; Start 02/23/20 at 09:15; Stop 02/23/20 at 11:14; Status DC Acetaminophen (Tylenol) 650 mg PRN Q6HRS PRN PO MILD PAIN / TEMP > 100.3'F Last administered on 02/25/20at 13:49; Start 02/23/20 at 12:45 Alprazolam (Xanax) 0.25 mg PRN BID PRN PO ANXIETY / AGITATION Last administered on 03/02/20at 12:58; Start 02/23/20 at 12:45 Amiodarone HCl (Cordarone) 200 mg DAILY PO Last administered on 03/02/20at 09:13; Start 02/23/20 at 14:00 Aspirin (Aspirin Chewable) 81 mg DAILY PO Last administered on 03/02/20at 09:11; Start 02/23/20 at 14:00 Atorvastatin Calcium (Lipitor) 40 mg HS PO Last administered on 03/01/20at 20:38; Start 02/23/20 at 21:00 Citalopram Hydrobromide (CeleXA) 20 mg DAILY08 PO Last administered on 03/02/20 09:13; Start 02/23/20 at 14:00 Docusate Sodium (Colace) 100 mg BID PO Last administered on 03/02/20 09:13; Start 02/23/20 at 14:00 Furosemide (Lasix) 20 mg BID92 PO Last administered on 02/25/20 13:50; Start 02/23/20 at 14:00; Stop 02/25/20 at 13:51; Status DC Gabapentin (Neurontin) 100 mg BID PO Last administered on 03/02/20 09:12; Start 02/23/20 at 14:00 Acetaminophen/ Hydrocodone Bitart (Lortab 7.5/325) 1 tab PRN Q4HRS PRN PO MODERATE PAIN Last administered on 03/02/20 03:09; Start 02/23/20 at 12:45 Levothyroxine Sodium (Synthroid) 100 mcg DAILY06 PO Last administered on 03/02/20 05:00; Start 02/23/20 at 14:00 Montelukast Sodium (Singulair) 10 mg HS PO Last administered on 03/01/20 20:38; Start 02/23/20 at 21:00 Pantoprazole Sodium (Protonix) 40 mg DAILYAC PO Last administered on 02/27/20 09:02; Start 02/23/20 at 16:30; Stop 02/27/20 at 14:50; Status DC Fenofibrate (Lofibra) 134 mg DAILY PO Last administered on 03/02/20 09:11; Start 02/23/20 at 14:00 Insulin Glargine (Lantus Syringe) 35 unit QHS SQ Last administered on 03/01/20 20:42; Start 02/23/20 at 21:00 Sacubitril/ Valsartan (Entresto 49 Mg-51 Mg) 1 tab DAILY PO Last administered on 03/02/20 09:11; Start 02/23/20 at 14:00 Heparin Sodium (Porcine) (Heparin Sodium) 4,000 unit 1X ONCE IV Last administered on 02/23/20 15:05; Start 02/23/20 at 14:30; Stop 02/23/20 at 14:31; Status DC Heparin Sodium/ Dextrose 250 ml @ 0 mls/hr CONT PRN IV PER PROTOCOL Last administered on 02/24/20at 04:34; Start 02/23/20 at 14:30; Stop 02/24/20 at 12:46; Status DC Heparin Sodium (Porcine) (Heparin Sodium) 2,750 unit PRN Q6HRS PRN IV FOR UFH LEVEL LESS THAN 0.2 Last administered on 02/23/20at 22:28; Start 02/23/20 at 14:30; Stop 02/24/20 at 12:46; Status DC Heparin Sodium (Porcine) (Heparin Sodium) 1,350 unit PRN Q6HRS PRN IV FOR UFH LEVEL 0.2 - 0.29; Start 02/23/20 at 14:30; Stop 02/24/20 at 12:46; Status DC Insulin Human Lispro (HumaLOG) 10 units 1X ONCE SQ Last administered on 02/23/20at 16:46; Start 02/23/20 at 16:45; Stop 02/23/20 at 16:46; Status DC Isosorbide Mononitrate (Imdur) 30 mg DAILY PO Last administered on 03/02/20at 09:12; Start 02/24/20 at 09:00 Info (Anti-Coagulation Monitoring By Pharmacy) 1 each PRN DAILY PRN MC SEE COMMENTS Last administered on 02/26/20at 12:38; Start 02/24/20 at 12:15; Stop 02/29/20 at 10:53; Status DC Insulin Human Regular (HumuLIN R VIAL) 35 unit TID SQ ; Start 02/24/20 at 14:00; Stop 02/24/20 at 12:23; Status DC Insulin Human Lispro (HumaLOG) 35 units TIDWMEALS SQ Last administered on 03/02/20at 13:06; Start 02/24/20 at 13:00 Apixaban (Eliquis) 10 mg BID PO ; Start 02/24/20 at 13:00; Stop 03/01/20 at 21:01; Status Cancel Apixaban (Eliquis) 5 mg BID PO ; Start 03/02/20 at 09:00; Status Cancel Warfarin Sodium (Coumadin Per Pharmacy) 1 each PRN DAILY PRN MC SEE COMMENTS Last administered on 03/02/20at 12:40; Start 02/24/20 at 13:15 Warfarin Sodium (Coumadin) 5 mg 1X WARF ONCE PO Last administered on 02/24/20at 15:03; Start 02/24/20 at 16:00; Stop 02/24/20 at 16:01; Status DC Heparin Sodium/ Dextrose 250 ml @ 0 mls/hr CONT PRN IV PER PROTOCOL Last administered on 02/29/20at 00:30; Start 02/24/20 at 13:45; Stop 02/29/20 at 09:58; Status DC Heparin Sodium (Porcine) (Heparin Sodium) 2,750 unit PRN Q6HRS PRN IV FOR UFH LEVEL LESS THAN 0.2 Last administered on 02/24/20at 16:34; Start 02/24/20 at 13:45; Stop 02/29/20 at 09:58; Status DC Heparin Sodium (Porcine) (Heparin Sodium) 1,350 unit PRN Q6HRS PRN IV FOR UFH LEVEL 0.2 - 0.29 Last administered on 02/27/20at 06:09; Start 02/24/20 at 13:45; Stop 02/29/20 at 09:58; Status DC Furosemide (Lasix) 40 mg BID92 PO Last administered on 03/02/20at 09:13; Start 02/25/20 at 14:00 Warfarin Sodium (Coumadin) 5 mg 1X WARF ONCE PO Last administered on 02/25/20at 17:14; Start 02/25/20 at 16:00; Stop 02/25/20 at 16:01; Status DC Piperacillin Sod/ Tazobactam Sod 4.5 gm/Sodium Chloride 100 ml @ 200 mls/hr 1X ONCE IV Last administered on 02/26/20at 12:34; Start 02/26/20 at 12:00; Stop 02/26/20 at 12:29; Status DC Piperacillin Sod/ Tazobactam Sod (Zosyn Per Pharmacy) 1 each PRN DAILY PRN MC SEE COMMENTS; Start 02/26/20 at 11:30 Iron Sucrose 200 mg/Sodium Chloride 110 ml @ 55 mls/hr 1X ONCE IV ; Start 02/26/20 at 12:00; Stop 02/26/20 at 15:27; Status DC Piperacillin Sod/ Tazobactam Sod 4.5 gm/Sodium Chloride 100 ml @ 200 mls/hr Q6HRS IV Last administered on 02/28/20at 06:18; Start 02/26/20 at 18:00; Stop 02/28/20 at 07:12; Status DC Warfarin Sodium (Coumadin) 7.5 mg 1X WARF ONCE PO Last administered on 02/26/20at 15:48; Start 02/26/20 at 16:00; Stop 02/26/20 at 16:01; Status DC Ferrous Sulfate (Feosol) 325 mg TIDWMEALHC PO Last administered on 03/02/20at 12:59; Start 02/26/20 at 17:00 Ascorbic Acid (Vitamin C) 500 mg DAILY PO Last administered on 03/02/20at 09:11; Start 02/27/20 at 09:00 Warfarin Sodium (Coumadin) 7.5 mg 1X WARF ONCE PO Last administered on 02/27/20at 18:13; Start 02/27/20 at 16:00; Stop 02/27/20 at 16:01; Status DC Lactobacillus Rhamnosus (Culturelle) 1 cap BID PO Last administered on 03/02/20at 09:11; Start 02/27/20 at 21:00 Barium Sulfate (Varibar Thin Liquid Apple) 148 gm 1X ONCE PO Last administered on 02/27/20at 13:45; Start 02/27/20 at 12:30; Stop 02/27/20 at 12:31; Status DC Barium Sulfate (Liquid E-Z Paque) 355 ml 1X ONCE PO Last administered on 02/27/20at 13:55; Start 02/27/20 at 13:00; Stop 02/27/20 at 13:01; Status DC Barium Sulfate (E-Z-Hd) 340 gm 1X ONCE PO ; Start 02/27/20 at 13:00; Stop 02/27/20 at 13:01; Status DC Simethicone/ Sodium Bicarb/ Citric Ac (E-Z-Gas) 1 packet 1X ONCE PO ; Start 02/27/20 at 13:00; Stop 02/27/20 at 13:01; Status DC Pantoprazole Sodium (Protonix) 40 mg BIDAC PO Last administered on 03/02/20at 09:13; Start 02/27/20 at 16:30 Warfarin Sodium (Coumadin) 7.5 mg 1X WARF ONCE PO Last administered on 02/28/20at 16:43; Start 02/28/20 at 16:00; Stop 02/28/20 at 16:01; Status DC Piperacillin Sod/ Tazobactam Sod 3.375 gm/Sodium Chloride 50 ml @ 100 mls/hr Q6HRS IV Last administered on 03/02/20at 13:00; Start 02/28/20 at 12:00 Potassium Chloride (Klor-Con) 40 meq 1X ONCE PO Last administered on 02/28/20at 08:35; Start 02/28/20 at 08:30; Stop 02/28/20 at 08:31; Status DC Magnesium Sulfate/ Dextrose 100 ml @ 100 mls/hr 1X ONCE IV Last administered on 02/28/20at 12:27; Start 02/28/20 at 12:00; Stop 02/28/20 at 12:59; Status DC Guaifenesin (Robitussin Dm) 10 ml PRN Q6HRS PRN PO COUGH; Start 02/28/20 at 12:00 Warfarin Sodium (Coumadin) 7.5 mg 1X WARF ONCE PO Last administered on 02/29/20at 16:30; Start 02/29/20 at 16:00; Stop 02/29/20 at 16:01; Status DC Warfarin Sodium (Coumadin) 5 mg 1X WARF ONCE PO Last administered on 03/01/20at 16:29; Start 03/01/20 at 16:00; Stop 03/01/20 at 16:01; Status DC Potassium Chloride (Klor-Con) 20 meq DAILY PO ; Start 03/02/20 at 11:15; Status Cancel Potassium Chloride (Klor-Con) 20 meq 1X ONCE PO Last administered on 03/02/20at 12:59; Start 03/02/20 at 12:00; Stop 03/02/20 at 12:01; Status DC Potassium Chloride (Klor-Con) 20 meq DAILYWBKFT PO ; Start 03/03/20 at 08:00 Warfarin Sodium (Coumadin - No Dose Today) 1 each 1X WARF ONCE MC ; Start 03/02/20 at 16:00; Stop 03/02/20 at 16:01 Active Scripts Active Colace (Docusate Sodium) 100 Mg Capsule 1 Cap PO BID 30 Days Alprazolam 0.25 Mg Tablet 1 Tab PO BID PRN Reported Entresto 97 mg-103 mg Tablet (Sacubitril/Valsartan) 1 Each Tablet 0.5 Each PO DAILY Aspirin 81 Mg Tab.chew 81 Mg PO DAILY Citalopram Hbr (Citalopram Hydrobromide) 20 Mg Tablet 1 Tab PO DAILY08 Hydrocodone-Apap 7.5-325 (Hydrocodone Bit/Acetaminophen) 1 Tab Tablet 1 Tab PO Q4HRS PRN Furosemide 20 Mg Tablet 20 Mg PO BID Amiodarone Hcl 200 Mg Tablet 1 Tab PO DAILY Montelukast Sodium Tablet (Montelukast Sodium) 10 Mg Tablet 10 Mg PO HS Levothyroxine Sodium 100 Mcg Tablet 1 Tab PO DAILY Proair Hfa Inhaler (Albuterol Sulfate) 8.5 Gm Hfa.aer.ad 2 Puff IH PRN Q4-6HRS Tylenol (Acetaminophen) 325 Mg Tablet 650 Mg PO Fenofibrate (Fenofibrate Nanocrystallized) 145 Mg Tablet 1 Tab PO DAILY Humalog (Insulin Lispro) 100 Unit/1 Ml Vial 35 Unit SQ TID Lantus Solostar (Insulin Glargine,Hum.rec.anlog) 100 Unit/1 Ml Insuln.pen 35 Unit SQ HS Pantoprazole Sodium (Pantoprazole Sodium) 40 Mg Tablet.dr 40 Mg PO DAILY Atorvastatin Calcium 40 Mg Tablet 40 Mg PO HS Gabapentin (Gabapentin) 100 Mg Capsule 100 Mg PO BID Vital Signs Vital Signs Date Time Temp Pulse Resp B/P (MAP) Pulse Ox O2 Delivery O2 Flow Rate FiO2 03/02/20 11:00 97.5 88 18 110/53 (72) 97 Nasal Cannula 3.0 97.5 Labs Laboratory Tests Test 02/29/20 16:59 02/29/20 21:09 03/01/20 05:22 03/01/20 07:33 Glucose (Fingerstick) 125 mg/dL (70-99) 243 mg/dL (70-99) 199 mg/dL (70-99) Prothrombin Time 29.4 SEC (11.7-14.0) Prothromb Time International Ratio 2.8 (0.8-1.1) Sodium Level 136 mmol/L (136-145) Potassium Level 3.7 mmol/L (3.5-5.1) Chloride Level 100 mmol/L (98-107) Carbon Dioxide Level 31 mmol/L (21-32) Anion Gap 5 (6-14) Blood Urea Nitrogen 21 mg/dL (7-20) Creatinine 1.5 mg/dL (0.6-1.0) Estimated GFR (Cockcroft-Gault) 34.2 Glucose Level 209 mg/dL (70-99) Calcium Level 8.0 mg/dL (8.5-10.1) Test 03/01/20 11:50 03/01/20 16:37 03/01/20 17:37 03/01/20 20:37 Glucose (Fingerstick) 184 mg/dL (70-99) 69 mg/dL (70-99) 88 mg/dL (70-99) 170 mg/dL (70-99) Test 03/02/20 05:22 03/02/20 07:32 03/02/20 11:40 White Blood Count 8.3 x10^3/uL (4.0-11.0) Red Blood Count 3.45 x10^6/uL (3.50-5.40) Hemoglobin 7.9 g/dL (12.0-15.5) Hematocrit 24.4 % (36.0-47.0) Mean Corpuscular Volume 71 fL (79-100) Mean Corpuscular Hemoglobin 23 pg (25-35) Mean Corpuscular Hemoglobin Concent 33 g/dL (31-37) Red Cell Distribution Width 20.1 % (11.5-14.5) Platelet Count 310 x10^3/uL (140-400) Neutrophils (%) (Auto) 73 % (31-73) Lymphocytes (%) (Auto) 14 % (24-48) Monocytes (%) (Auto) 11 % (0-9) Eosinophils (%) (Auto) 1 % (0-3) Basophils (%) (Auto) 1 % (0-3) Neutrophils # (Auto) 6.0 x10^3/uL (1.8-7.7) Lymphocytes # (Auto) 1.2 x10^3/uL (1.0-4.8) Monocytes # (Auto) 0.9 x10^3/uL (0.0-1.1) Eosinophils # (Auto) 0.1 x10^3/uL (0.0-0.7) Basophils # (Auto) 0.0 x10^3/uL (0.0-0.2) Prothrombin Time 35.3 SEC (11.7-14.0) Prothromb Time International Ratio 3.5 (0.8-1.1) Sodium Level 139 mmol/L (136-145) Potassium Level 3.4 mmol/L (3.5-5.1) Chloride Level 102 mmol/L (98-107) Carbon Dioxide Level 30 mmol/L (21-32) Anion Gap 7 (6-14) Blood Urea Nitrogen 17 mg/dL (7-20) Creatinine 1.3 mg/dL (0.6-1.0) Estimated GFR (Cockcroft-Gault) 40.4 Glucose Level 105 mg/dL (70-99) Calcium Level 8.0 mg/dL (8.5-10.1) Phosphorus Level 3.1 mg/dL (2.6-4.7) Albumin 1.8 g/dL (3.4-5.0) Glucose (Fingerstick) 108 mg/dL (70-99) 169 mg/dL (70-99) Laboratory Tests Test 03/01/20 16:37 03/01/20 17:37 03/01/20 20:37 03/02/20 05:22 Glucose (Fingerstick) 69 mg/dL (70-99) 88 mg/dL (70-99) 170 mg/dL (70-99) White Blood Count 8.3 x10^3/uL (4.0-11.0) Red Blood Count 3.45 x10^6/uL (3.50-5.40) Hemoglobin 7.9 g/dL (12.0-15.5) Hematocrit 24.4 % (36.0-47.0) Mean Corpuscular Volume 71 fL (79-100) Mean Corpuscular Hemoglobin 23 pg (25-35) Mean Corpuscular Hemoglobin Concent 33 g/dL (31-37) Red Cell Distribution Width 20.1 % (11.5-14.5) Platelet Count 310 x10^3/uL (140-400) Neutrophils (%) (Auto) 73 % (31-73) Lymphocytes (%) (Auto) 14 % (24-48) Monocytes (%) (Auto) 11 % (0-9) Eosinophils (%) (Auto) 1 % (0-3) Basophils (%) (Auto) 1 % (0-3) Neutrophils # (Auto) 6.0 x10^3/uL (1.8-7.7) Lymphocytes # (Auto) 1.2 x10^3/uL (1.0-4.8) Monocytes # (Auto) 0.9 x10^3/uL (0.0-1.1) Eosinophils # (Auto) 0.1 x10^3/uL (0.0-0.7) Basophils # (Auto) 0.0 x10^3/uL (0.0-0.2) Prothrombin Time 35.3 SEC (11.7-14.0) Prothromb Time International Ratio 3.5 (0.8-1.1) Sodium Level 139 mmol/L (136-145) Potassium Level 3.4 mmol/L (3.5-5.1) Chloride Level 102 mmol/L (98-107) Carbon Dioxide Level 30 mmol/L (21-32) Anion Gap 7 (6-14) Blood Urea Nitrogen 17 mg/dL (7-20) Creatinine 1.3 mg/dL (0.6-1.0) Estimated GFR (Cockcroft-Gault) 40.4 Glucose Level 105 mg/dL (70-99) Calcium Level 8.0 mg/dL (8.5-10.1) Phosphorus Level 3.1 mg/dL (2.6-4.7) Albumin 1.8 g/dL (3.4-5.0) Test 03/02/20 07:32 03/02/20 11:40 Glucose (Fingerstick) 108 mg/dL (70-99) 169 mg/dL (70-99) Allergies Allergies Coded Allergies Type Severity Reaction Last Updated Verified insulin glargine Allergy Severe "swelling", hospitalized [facility] ONLY 09/27/19 Y es Disposition/Orders: D/C to Home w/ HH Justicifation of Admission Dx: Justifications for Admission: Justification of Admission Dx: Yes FREDO WOO MD Mar 02, 2020 14:18
[2020-03-02] MEDS ORDERED: AMOX1TAB61 PO (14:25)
[2020-03-02] MEDS ORDERED: POTA20TA4 PO (14:25)
[2020-03-02] MEDS ORDERED: GUAI5SYR PO (14:25)
[2020-03-02] MEDS ORDERED: WARF2.5T2 MC (14:25)
[2020-03-02] MEDS ORDERED: ISOS30TA4 PO (14:25)
[2020-03-02] MEDS ORDERED: ASCO500T4 PO (14:25)
[2020-03-02] MEDS ORDERED: PANT40TA77 PO (14:25)
[2020-03-02] MEDS ORDERED: LACT1CAP19 PO (14:25)
[2020-03-02] MEDS ORDERED: FURO40TA4 PO (14:25)
[2020-03-02] MEDS ORDERED: FERR325T72 PO (14:25)
--- NOTE | 2020-03-02 14:28 | SNU/HH DC ---
DISCHARGE WITH HOME HEALTH DISCHARGE INFORMATION: Discharge Date: Mar 02, 2020 Final Diagnosis: Problems Medical Problems: (1) Chest pain Status: Acute (2) Elevated d-dimer Status: Acute (3) Suspected 2019 novel coronavirus infection Status: Acute Condition on Discharge: Stable CODE STATUS: Code Status: Full HOME HEALTH: Face to Face: I certify this patient is under my care and that I, or a nurse practitioner or physician's printing bindery assistant working with me, had a face to face encounter that meets the physician face to face encounter requirements with this patient on []. Medical Complications: COPD, DM Prison For: Admin/Educate Injections, Assess & Educate Safety, Assess/Skilled Observatio, Medication Management, Pain Management RN For Eval/Treatment: Yes Physical Therapy For: Evalulation/Treatment Occupational Therapy For: Evaluation/Treatment Speech Language Pathology For: Evaluation/Treatment Home Health Aide For: Self-care PRACTICE COORDINATOR For: Community Resources Pt Meets Homebound Status: Fatigue w/ amb. POST DISCHARGE ORDERS: Activity Instructions for Disc: Bedrest today Weight Bearing Status after Di: As tolerated Bathing Instructions: Shower-keep dressing dry, No Tub Bath until see DIET AFTER DISCHARGE: ADA Wound/Incision Care: Keep wound/cast CDI CHECKS AFTER DISCHARGE: Checks after discharge: Check blood press - daily, Check blood sugar, ac/hs FOLLOW-UP: PCP to follow Home Health: PCP Follow up with: HOME HEALTH DAILY INR X 5 DAYS, NO WARFARIN TONIGHT DC TO SNF LABS: keep JOP drain x 7-10 days post lap moraima , per GS Warfarin Follow UP: PCP BY PHONE TOMORROW X 4 DAYS Additional Instructions: SEE PCP THIS WEEK TREATMENT/EQUIPMENT ORDERS: Adaptive Equipment Issued: None Discharge Respiratory Equipmen: Oxygen, Nebulizer CERTIFICATION STATEMENT: Certification Statement: Certification Statement: Based on the above finding, I certify that this patient is confined to the home and needs intermittent assisted care, physical therapy and/or speech therapy, or continues to need occupational therapy.~ This patient is under my care, and I have initiated the establishment of the plan of care.~ This patient will be followed by myself or a community physician who will periodically review the plan of care. Home Meds Active Scripts Warfarin Sodium (COUMADIN) 2.5 Mg Tablet, 1 EACH MC 1X WARF for PULMONARY EMBOLUS for 30 Days, #30 TAB Prov:FREDO WOO MD 03/02/20 Ascorbic Acid (VITAMIN C) 500 Mg Tablet, 500 MG PO DAILY for SUPPLEMENT for 30 Days, #30 TAB Prov:FREDO WOO MD 03/02/20 Lactobacillus Rhamnosus Gg (CULTURELLE) 1 Each Cap.sprink, 1 CAP PO BID for SUPPLEMENT for 30 Days, #60 CAP Prov:FREDO WOO MD 03/02/20 Pantoprazole Sodium (PANTOPRAZOLE SODIUM ) 40 Mg Tablet.dr, 40 MG PO BIDAC for SUPPLEMENT for 30 Days, #60 TAB.SR Prov:FREDO WOO MD 03/02/20 Guaifenesin/Dextromethorphan (GUAIFENESIN DM SYRUP) 5 Ml Syrup, 10 ML PO PRN Q6HRS PRN for COUGH for 14 Days, #240 MISC Prov:FREDO WOO MD 03/02/20 Furosemide (FUROSEMIDE) 40 Mg Tablet, 40 MG PO BID92 for HEART FAILURE for 30 Days, #60 TAB Prov:FREDO WOO MD 03/02/20 Potassium Chloride (KLOR-CON M20) 20 Meq Tab.er.prt, 20 MEQ PO DAILYWBKFT for SUPPLEMENT for 10 Days, #10 TAB.SR Prov:FREDO WOO MD 03/02/20 Isosorbide Mononitrate (ISOSORBIDE MONONITRATE ER) 30 Mg Tab.er.24h, 30 MG PO DAILY for CHOLESTEROL for 30 Days, #30 TAB.SR Prov:FREDO WOO MD 03/02/20 Ferrous Sulfate (FEOSOL) 325 Mg Tablet, 325 MG PO TIDWMEALHC for ANEMIA for 30 Days, #120 TAB Prov:FREDO WOO MD 03/02/20 Amoxicillin/Potassium Clav (AUGMENTIN 875-125 TABLET) 1 Each Tablet, 1 TAB PO BID for PNEUMONIA for 7 Days, #14 TAB 0 Refills Prov:FREDO WOO MD 03/02/20 Docusate Sodium (COLACE) 100 Mg Capsule, 1 CAP PO BID for constipation for 30 Days, #60 CAP 0 Refills Prov:CHIOMA CANCHOLA MD 10/14/19 Alprazolam (ALPRAZOLAM) 0.25 Mg Tablet, 1 TAB PO BID PRN for ANXIETY / AGITATION, #30 TAB Prov:JOSE M MACKAY MD 10/02/19 Reported Medications Sacubitril/Valsartan (Entresto 97 mg-103 mg Tablet) 1 Each Tablet, 0.5 EACH PO DAILY for , TAB 02/18/20 Aspirin (ASPIRIN) 81 Mg Tab.chew, 81 MG PO DAILY for , TAB.CHEW 02/18/20 Citalopram Hydrobromide (CITALOPRAM HBR) 20 Mg Tablet, 1 TAB PO DAILY08 for depression, #30 TAB 5 Refills 12/23/19 Hydrocodone Bit/Acetaminophen (HYDROCODONE-APAP 7.5-325 ) 1 Tab Tablet, 1 TAB PO Q4HRS PRN for PAIN, TAB 0 Refills 12/23/19 Amiodarone Hcl (AMIODARONE HCL) 200 Mg Tablet, 1 TAB PO DAILY for hypertension, #90 TAB 1 Refill 12/23/19 Montelukast Sodium (MONTELUKAST SODIUM TABLET ) 10 Mg Tablet, 10 MG PO HS for FOR ASTHMA, #30 TAB 0 Refills 11/30/17 Levothyroxine Sodium (LEVOTHYROXINE SODIUM) 100 Mcg Tablet, 1 TAB PO DAILY, #30 TAB 5 Refills 05/26/16 Albuterol Sulfate (PROAIR HFA INHALER) 8.5 Gm Hfa.aer.ad, 2 PUFF IH PRN Q4-6HRS, #1 INHALER 05/20/15 Acetaminophen (TYLENOL) 325 Mg Tablet, 650 MG PO 05/14/15 Fenofibrate Nanocrystallized (FENOFIBRATE) 145 Mg Tablet, 1 TAB PO DAILY for , #30 TAB 5 Refills 05/14/15 Insulin Lispro (HUMALOG) 100 Unit/1 Ml Vial, 35 UNIT SQ TID, VIAL 04/08/14 Insulin Glargine,Hum.rec.anlog (LANTUS SOLOSTAR) 100 Unit/1 Ml Insuln.pen, 35 UNIT SQ HS for dm, SYR 04/08/14 Pantoprazole Sodium (PANTOPRAZOLE SODIUM ) 40 Mg Tablet.dr, 40 MG PO DAILY for , TAB 04/08/14 Atorvastatin Calcium (ATORVASTATIN CALCIUM) 40 Mg Tablet, 40 MG PO HS for FOR CHOLESTEROL, #30 TAB 0 Refills 04/08/14 Gabapentin (GABAPENTIN ) 100 Mg Capsule, 100 MG PO BID for , CAP 04/08/14 Discontinued Reported Medications Furosemide (FUROSEMIDE) 20 Mg Tablet, 20 MG PO BID for chf, TAB 12/23/19 FREDO WOO MD Mar 02, 2020 14:28
[2020-03-02 15:00] VITALS: BP 110/58
--- NOTE | 2020-03-02 15:09 | NUR ---
RN Note Pt states she does not want to discharge until the morning due to her transportation being elderly and living 45 minutes away.
--- NOTE | 2020-03-02 16:31 | RAD ---
CHEST AP ONLY Clinical indications: Pneumonia. Follow-up study. COMPARISON: February 27, 2020. Findings: There has been moderate improvement of the bilateral lung infiltrates or pulmonary edema. Small bilateral pleural effusions are still evident. No pneumothorax is seen. Heart size and mediastinum and pulmonary vasculature are stable. IMPRESSION: Improvement of bilateral lung infiltrates or pulmonary edema. Electronically signed by: Beck Hsieh MD (03/02/2020 4:28 PM) [id number]
--- NOTE | 2020-03-02 16:38 | PDOC ---
PEDRO COLÓN TWISTER HAND 03/02/20 1637: CARDIO Progress Notes Date and Time Date of Service 03/02/2020 Time of Evaluation 1615 Subjective Subjective: No Chest Pain, No shortness of breath, No Palpitations Vitals Vitals Vital Signs Date Time Temp Pulse Resp B/P (MAP) Pulse Ox O2 Delivery O2 Flow Rate FiO2 03/02/20 15:00 97.2 80 18 110/58 (75) 98 Nasal Cannula 3.0 97.2 Weight Weight [ ] Input and Output Intake and Output Intake and Output 03/02/20 07:00 Intake Total 970 ml Output Total 300 ml Balance 670 ml Intake Oral 870 ml IV Total 100 ml Output Urine Total 300 ml # Voids 2 # Bowel Movements 1 Laboratory Labs Laboratory Tests Test 03/01/20 16:37 03/01/20 17:37 03/01/20 20:37 03/02/20 05:22 Glucose (Fingerstick) 69 mg/dL (70-99) 88 mg/dL (70-99) 170 mg/dL (70-99) White Blood Count 8.3 x10^3/uL (4.0-11.0) Red Blood Count 3.45 x10^6/uL (3.50-5.40) Hemoglobin 7.9 g/dL (12.0-15.5) Hematocrit 24.4 % (36.0-47.0) Mean Corpuscular Volume 71 fL (79-100) Mean Corpuscular Hemoglobin 23 pg (25-35) Mean Corpuscular Hemoglobin Concent 33 g/dL (31-37) Red Cell Distribution Width 20.1 % (11.5-14.5) Platelet Count 310 x10^3/uL (140-400) Neutrophils (%) (Auto) 73 % (31-73) Lymphocytes (%) (Auto) 14 % (24-48) Monocytes (%) (Auto) 11 % (0-9) Eosinophils (%) (Auto) 1 % (0-3) Basophils (%) (Auto) 1 % (0-3) Neutrophils # (Auto) 6.0 x10^3/uL (1.8-7.7) Lymphocytes # (Auto) 1.2 x10^3/uL (1.0-4.8) Monocytes # (Auto) 0.9 x10^3/uL (0.0-1.1) Eosinophils # (Auto) 0.1 x10^3/uL (0.0-0.7) Basophils # (Auto) 0.0 x10^3/uL (0.0-0.2) Prothrombin Time 35.3 SEC (11.7-14.0) Prothromb Time International Ratio 3.5 (0.8-1.1) Sodium Level 139 mmol/L (136-145) Potassium Level 3.4 mmol/L (3.5-5.1) Chloride Level 102 mmol/L (98-107) Carbon Dioxide Level 30 mmol/L (21-32) Anion Gap 7 (6-14) Blood Urea Nitrogen 17 mg/dL (7-20) Creatinine 1.3 mg/dL (0.6-1.0) Estimated GFR (Cockcroft-Gault) 40.4 Glucose Level 105 mg/dL (70-99) Calcium Level 8.0 mg/dL (8.5-10.1) Phosphorus Level 3.1 mg/dL (2.6-4.7) Albumin 1.8 g/dL (3.4-5.0) Test 03/02/20 07:32 03/02/20 11:40 Glucose (Fingerstick) 108 mg/dL (70-99) 169 mg/dL (70-99) Review of Systems Constitutional: yes: weakness, alert, oriented Ears/Nose/Throat: Yes: no symptom reported Eyes: Yes: no symptom reported Pulmonary: Yes dyspnea Cardiovascular: Yes no symptom reported Gastrointestional: Yes: constipation Genitourinary: Yes: no symptom reported Musculoskeletal: Yes: no symptom reported Skin: Yes no symptom reported Psychiatric/Neurological: Yes: no symptom reported Endocrine: Yes: no symptom reported Physical Exam HEENT: Neck Supple W Full Motion Chest: Symmetric LUNGS: Other (diminished bases) Heart: S1S2, RRR (SR) Abdomen: Soft N/T, Other (obese ) Extremities: No Edema Neurology: alert, oriented, follow commands Assessment Assessment 1. Atypical CP: none further possibly pleuritic 2. CAD: recent LHC with patent stents. Clinically stable 3. Acute respiratory failure with possible recurrent PE. VQ with intermediated probability for PE. per pulmonary 4. Acute on chronic systolic CHF with severe ICM/NICM: EF at 20-25%. appears compensated 5. H/o VT with ICD discharge. On Amiodarone for rhythm maintenance No ILD ok per pulmonary 6. DM2/HLP: Continue current treatment 7. PAD: s/p percutaneous revascularization. stable, no claudications 8. CKD; Cr up to 1.6, nephrology following 9. HTN: controlled 10. H/o PE s/p IVC filter. This was removed 02/18/20 and OAC was discontinued 11. Arrhythmia: periods of PSVT and aberrant conduction 12. s/p AICD ([facility] A) Recommendations HF optimization with Entresto, Lasix therapy. Replace K Secondary prevention measures On cooumadin therapy. INR at 3.5 Continue Amiodarone therapy for VT suppression Follow up in office Anticpate Dc tomorrow. Justicifation of Admission Dx: Justifications for Admission: Justification of Admission Dx: Yes RACH ROSALES MD 03/02/20 1825: CARDIO Progress Notes Assessment Assessment Patient seen and examined I agree with our nurse practitioners assessment and plan as above. Atypical CP: Resolved. History of coronary disease with stenting. Continue medical treatment. Office follow-up. Acute respiratory failure. Intermittent probability VQ scan. Followed by pulmonary. Compensated ischemic cardiomyopathy. Ejection fraction of 20 to 25%. VT. ICD in place. On amiodarone with improved rhythm. Controlled hypertension. Peripheral arterial disease. Stable on present medication. PEDRO COLÓN APRN Mar 02, 2020 16:37 RACH ROSLAES MD Mar 02, 2020 18:25
[2020-03-02 19:42] VITALS: BP 128/60
[2020-03-02 22:41] VITALS: BP 123/59
[2020-03-02] MEDS: INSULIN GLARGINE SYRINGE. SQ SCH (23:28)
[2020-03-02] MEDS: ATORVASTATIN CALCIUM 40 MG TABLET. PO SCH (23:29)
[2020-03-02] MEDS: MONTELUKAST SODIUM 10 MG TABLET. PO SCH (23:29)
[2020-03-03 02:30] VITALS: BP 113/55
[2020-03-03 03:40] LABS: PROTHROMBIN TIME PATIENT 34.6 SEC (11.7-14.0)
[2020-03-03 03:43] LABS: CREATININE 1.6 mg/dL (0.6-1.0); GFR 31.8; POTASSIUM 3.8 mmol/L (3.5-5.1)
--- NOTE | 2020-03-03 05:00 | NUR ---
PT'S IV INFILTRATED WHICH MADE HER VERY MAD. PT DID NOT WANT TO BE WOKE UP. GAVE STRICT ORDERS AT SHIFT ESCOBAR 03/02. PT WANTED NSG SUP. BY 0700 LEAVING IV OUTN BRYANT BOB REMOVED OLD IV. LCRN
[2020-03-03] MEDS: LEVOTHYROXINE 100 MCG TABLET PO SCH (05:21)
[2020-03-03] MEDS: PIPERACILLIN/TAZOBACTAM 3.375 GM in IV NORMAL SALINE 50ML 50 ML IV SCH (06:00)
[2020-03-03 07:00] VITALS: BP 117/55
[2020-03-03] MEDS: INSULIN LISPRO 300 UNITS/3 ML VIAL. SQ SCH ×2 (08:00)
[2020-03-03] MEDS ORDERED: POTASSIUM CHLORIDE 20 MEQ TABLET.ER. PO SCH (08:00)
--- NOTE | 2020-03-03 08:38 | PDOC ---
PULMONARY PROGRESS NOTES Subjective Patient not more short of air, feels better today. Vitals Vital Signs Date Time Temp Pulse Resp B/P (MAP) Pulse Ox O2 Delivery O2 Flow Rate FiO2 03/03/20 07:56 Nasal Cannula 3.0 03/03/20 07:00 98.0 97 18 117/55 (75) 99 98.0 ROS: No Nausea, No Chest Pain, No Abdominal Pain General: Alert, Oriented X4, No acute distress Lungs: Clear, Other (decrease bs) Cardiovascular: S1, S2 Abdomen: Soft, Other (obese) Extremities: Other (1+edema) Skin: Warm, Dry Labs Laboratory Tests Test 03/01/20 11:50 03/01/20 16:37 03/01/20 17:37 03/01/20 20:37 Glucose (Fingerstick) 184 mg/dL (70-99) 69 mg/dL (70-99) 88 mg/dL (70-99) 170 mg/dL (70-99) Test 03/02/20 05:22 03/02/20 07:32 03/02/20 11:40 03/02/20 16:47 White Blood Count 8.3 x10^3/uL (4.0-11.0) Red Blood Count 3.45 x10^6/uL (3.50-5.40) Hemoglobin 7.9 g/dL (12.0-15.5) Hematocrit 24.4 % (36.0-47.0) Mean Corpuscular Volume 71 fL (79-100) Mean Corpuscular Hemoglobin 23 pg (25-35) Mean Corpuscular Hemoglobin Concent 33 g/dL (31-37) Red Cell Distribution Width 20.1 % (11.5-14.5) Platelet Count 310 x10^3/uL (140-400) Neutrophils (%) (Auto) 73 % (31-73) Lymphocytes (%) (Auto) 14 % (24-48) Monocytes (%) (Auto) 11 % (0-9) Eosinophils (%) (Auto) 1 % (0-3) Basophils (%) (Auto) 1 % (0-3) Neutrophils # (Auto) 6.0 x10^3/uL (1.8-7.7) Lymphocytes # (Auto) 1.2 x10^3/uL (1.0-4.8) Monocytes # (Auto) 0.9 x10^3/uL (0.0-1.1) Eosinophils # (Auto) 0.1 x10^3/uL (0.0-0.7) Basophils # (Auto) 0.0 x10^3/uL (0.0-0.2) Prothrombin Time 35.3 SEC (11.7-14.0) Prothromb Time International Ratio 3.5 (0.8-1.1) Sodium Level 139 mmol/L (136-145) Potassium Level 3.4 mmol/L (3.5-5.1) Chloride Level 102 mmol/L (98-107) Carbon Dioxide Level 30 mmol/L (21-32) Anion Gap 7 (6-14) Blood Urea Nitrogen 17 mg/dL (7-20) Creatinine 1.3 mg/dL (0.6-1.0) Estimated GFR (Cockcroft-Gault) 40.4 Glucose Level 105 mg/dL (70-99) Calcium Level 8.0 mg/dL (8.5-10.1) Phosphorus Level 3.1 mg/dL (2.6-4.7) Albumin 1.8 g/dL (3.4-5.0) Glucose (Fingerstick) 108 mg/dL (70-99) 169 mg/dL (70-99) 108 mg/dL (70-99) Test 03/02/20 21:03 03/03/20 03:16 03/03/20 07:07 Glucose (Fingerstick) 116 mg/dL (70-99) 118 mg/dL (70-99) Prothrombin Time 34.6 SEC (11.7-14.0) Prothromb Time International Ratio 3.4 (0.8-1.1) Sodium Level 138 mmol/L (136-145) Potassium Level 3.8 mmol/L (3.5-5.1) Chloride Level 102 mmol/L (98-107) Carbon Dioxide Level 31 mmol/L (21-32) Anion Gap 5 (6-14) Blood Urea Nitrogen 20 mg/dL (7-20) Creatinine 1.6 mg/dL (0.6-1.0) Estimated GFR (Cockcroft-Gault) 31.8 Glucose Level 133 mg/dL (70-99) Calcium Level 8.0 mg/dL (8.5-10.1) Laboratory Tests Test 03/02/20 11:40 03/02/20 16:47 03/02/20 21:03 03/03/20 03:16 Glucose (Fingerstick) 169 mg/dL (70-99) 108 mg/dL (70-99) 116 mg/dL (70-99) Prothrombin Time 34.6 SEC (11.7-14.0) Prothromb Time International Ratio 3.4 (0.8-1.1) Sodium Level 138 mmol/L (136-145) Potassium Level 3.8 mmol/L (3.5-5.1) Chloride Level 102 mmol/L (98-107) Carbon Dioxide Level 31 mmol/L (21-32) Anion Gap 5 (6-14) Blood Urea Nitrogen 20 mg/dL (7-20) Creatinine 1.6 mg/dL (0.6-1.0) Estimated GFR (Cockcroft-Gault) 31.8 Glucose Level 133 mg/dL (70-99) Calcium Level 8.0 mg/dL (8.5-10.1) Test 03/03/20 07:07 Glucose (Fingerstick) 118 mg/dL (70-99) Medications Active Scripts Medications Dose Route/Sig Max Daily Dose Days Date Category Entresto 97 mg-103 mg Tablet (Sacubitril/Valsartan) 1 Each Tablet 0.5 Each PO DAILY 02/18/20 Reported Aspirin 81 Mg Tab.chew 81 Mg PO DAILY 02/18/20 Reported Citalopram Hbr (Citalopram Hydrobromide) 20 Mg Tablet 1 Tab PO DAILY08 12/23/19 Reported Hydrocodone-Apap 7.5-325 (Hydrocodone Bit/Acetaminophen) 1 Tab Tablet 1 Tab PO Q4HRS PRN 12/23/19 Reported Furosemide 20 Mg Tablet 20 Mg PO BID 12/23/19 Reported Amiodarone Hcl 200 Mg Tablet 1 Tab PO DAILY 12/23/19 Reported Colace (Docusate Sodium) 100 Mg Capsule 1 Cap PO BID 30 10/14/19 Rx Alprazolam 0.25 Mg Tablet 1 Tab PO BID PRN 10/02/19 Rx Montelukast Sodium Tablet (Montelukast Sodium) 10 Mg Tablet 10 Mg PO HS 11/30/17 Reported Levothyroxine Sodium 100 Mcg Tablet 1 Tab PO DAILY 05/26/16 Reported Proair Hfa Inhaler (Albuterol Sulfate) 8.5 Gm Hfa.aer.ad 2 Puff IH PRN Q4-6HRS 05/20/15 Reported Tylenol (Acetaminophen) 325 Mg Tablet 650 Mg PO 05/14/15 Reported Fenofibrate (Fenofibrate Nanocrystallized) 145 Mg Tablet 1 Tab PO DAILY 05/14/15 Reported Humalog (Insulin Lispro) 100 Unit/1 Ml Vial 35 Unit SQ TID 04/08/14 Reported Lantus Solostar (Insulin Glargine,Hum.rec.anlog) 100 Unit/1 Ml Insuln.pen 35 Unit SQ HS 04/08/14 Reported Pantoprazole Sodium (Pantoprazole Sodium) 40 Mg Tablet.dr 40 Mg PO DAILY 04/08/14 Reported Atorvastatin Calcium 40 Mg Tablet 40 Mg PO HS 04/08/14 Reported Gabapentin (Gabapentin) 100 Mg Capsule 100 Mg PO BID 04/08/[address] chest IMPRESSION: Bilateral consolidative lung infiltrates which may represent pneumonia or aspiration pneumonitis. Impression . 1. Acute hypoxemic respiratory--improving 2. No significant tobacco history. 3. Cardiomyopathy with an ejection fraction of 20%-25% with possible mild congestive heart failure. She has severe global hypokinesis. She is status post stents. 4. 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 5. History of breast cancer with prior left mastectomy. 6. Abnormal CXR with possible faint mild interstitial infiltrates 7. CT no evidence of pulmonary embolus 8. CT with bilateral infiltrates left upper lobe right lower lobe, suspect infe ctious process, not typical of amiodarone induced lung injury 9. Bilateral pleural effusion 10. Status post IVC filter removal 02/18/20 11. VQ scan intermediate probability, my clinical suspicion for PE is low, venous Dopplers negative 12. Paroxysmal coughing spells Plan . Okay to discharge, discussed with Dr. Menjivar Follow-up with me in 8 weeks Rx written for Augmentin Add Tyler Page, seems to have Continue supplemental oxygen to keep sats above 92% Follow cardiology recs-- new ECHO shows EF 20-25% Follow nephrology recs-- cr. stable Continue Anticoagulation --on coumadin, per PCP Plan to Repeat CT chest in 8 weeks OOB as tolerated -- PT/ OT D/W RN KIRT AGUILLON MD Mar 03, 2020 08:38
[2020-03-03] MEDS: FENOFIBRATE,MICRONIZED 134 MG CAPSULE PO SCH (08:49)
[2020-03-03] MEDS: SACUBITRIL/VALSARTAN 49/51MG TABLET. PO SCH (08:49)
[2020-03-03] MEDS: ISOSORBIDE MONONITRATE ER 30 MG TAB.ER.24H PO SCH (08:50)
[2020-03-03] MEDS: LACTOBACILLUS RHAMNOSUS GG 1 CAPSULE. PO SCH (08:50)
[2020-03-03] MEDS: PANTOPRAZOLE 40 MG TABLET.DR. PO SCH (08:50)
[2020-03-03] MEDS: FUROSEMIDE 40 MG TABLET. PO SCH (08:50)
[2020-03-03] MEDS: FERROUS SULFATE 325 MG TABLET. PO SCH (08:50)
[2020-03-03] MEDS: CITALOPRAM 20 MG TABLET. PO SCH (08:50)
[2020-03-03] MEDS: GABAPENTIN 100 MG CAPSULE. PO SCH (08:50)
[2020-03-03] MEDS: DOCUSATE SODIUM 100 MG CAPSULE. PO SCH (08:50)
[2020-03-03 08:51] VITALS: BP 117/55
[2020-03-03] MEDS: ASCORBIC ACID 500 MG TABLET PO SCH (08:51)
[2020-03-03] MEDS: ASPIRIN CHEWABLE 81 MG TABLET. PO SCH (08:51)
[2020-03-03] MEDS: AMIODARONE HCL 200 MG TABLET. PO SCH (08:51)
[2020-03-03 08:55] LABS: HEMATOCRIT 25.5 % (36.0-47.0); RED BLOOD COUNT 3.52 x10^6/uL (3.50-5.40); RED CELL DISTRIBUTION WIDTH 20.4 % (11.5-14.5); WHITE BLOOD COUNT 9.4 x10^3/uL (4.0-11.0)
--- NOTE | 2020-03-03 11:00 | NUR ---
Discharge Note: VALENTINO SINGH [address] Discharge instructions and discharge home medications reviewed with Patient and a copy given. All questions have been answered and understanding verbalized. The following instructions and handouts were given: sodium and fluid restriction, coumadin, imdur, and augmentin Discontinued lines and drains: Peripheral IV intact. Patient discharged to Home with Self via Wheelchair
--- NOTE | 2020-03-03 11:05 | PDOC ---
SUBJECTIVE ROS no new complaints , ready to go home OBJECTIVE Vital Signs Vital Signs Date Time Temp Pulse Resp B/P (MAP) Pulse Ox O2 Delivery O2 Flow Rate FiO2 03/03/20 08:51 97 117/55 03/03/20 07:56 Nasal Cannula 3.0 03/03/20 07:00 98.0 18 99 98.0 I & 0 Intake and Output 03/03/20 07:00 Intake Total 1420 ml Output Total 900 ml Balance 520 ml Intake Oral 1420 ml Output Urine Total 900 ml # Bowel Movements 1 PHYSICAL EXAM Physical Exam General Appearance: no apparent distress HEEN -OM moist, On chronic o2 3 lts at home Respiratory: decreased breath sounds, Non labored Heart: S1S2 Abdomen: soft, bowel sounds present, Obese Genitourinary: No frazier, No cva or sp tenderness Neurology: alert, oriented, grossly normal Skin: warm, No rash DIAGNOSIS/ASSESSMENT Assessment & Plan CKD stage 3 Baseline Cr 1.5-1.8 currently stable never seen Neph as OP, Supportive care, avoid nephrotoxins , Follow up appt with our office (Routine/Nonurgent) post discharge Hyponatremia - resolved Hypokalemia - replace HTN - Stable DM II Dyspnea - AC hypoxic Resp failure, stable Recurrent Pulm emboli Anemia- per Primary CMP with EF 20-25%, On lasix PO BID , follow with cardiology CAD with Hx of stents COMMENT/RELEVANT DATA Meds Current Medications Medications (Trade) Dose Ordered Sig/Lester Start Time Stop Time Status Last Admin Dose Admin Acetaminophen (Tylenol) 650 mg PRN Q6HRS PRN 02/23/20 12:45 02/25/20 13:49 650 MG Acetaminophen/ Hydrocodone Bitart (Lortab 7.5/325) 1 tab PRN Q4HRS PRN 02/23/20 12:45 03/02/20 23:27 1 TAB Alprazolam (Xanax) 0.25 mg PRN BID PRN 02/23/20 12:45 03/02/20 23:27 0.25 MG Amiodarone HCl (Cordarone) 200 mg DAILY 02/23/20 14:00 03/03/20 08:51 200 MG Apixaban (Eliquis) 5 mg BID 03/02/20 09:00 Cancel Ascorbic Acid (Vitamin C) 500 mg DAILY 02/27/20 09:00 03/02/20 09:11 500 MG Aspirin (Aspirin Chewable) 81 mg DAILY 02/23/20 14:00 03/03/20 08:51 81 MG Aspirin (Brandee Aspirin) 325 mg 1X ONCE 02/22/20 22:30 02/22/20 22:26 DC Atorvastatin Calcium (Lipitor) 40 mg HS 02/23/20 21:00 03/02/20 23:29 40 MG Barium Sulfate (E-Z-Hd) 340 gm 1X ONCE 02/27/20 13:00 02/27/20 13:01 DC Barium Sulfate (Liquid E-Z Paque) 355 ml 1X ONCE 02/27/20 13:00 02/27/20 13:01 DC 02/27/20 13:55 355 ML Barium Sulfate (Varibar Thin Liquid Apple) 148 gm 1X ONCE 02/27/20 12:30 02/27/20 12:31 DC 02/27/20 13:45 148 GM Citalopram Hydrobromide (CeleXA) 20 mg DAILY08 02/23/20 14:00 03/03/20 08:50 20 MG Dextrose (Dextrose 50%-Water Syringe) 12.5 gm PRN Q15MIN PRN 02/23/20 00:45 Docusate Sodium (Colace) 100 mg BID 02/23/20 14:00 03/03/20 08:50 100 MG Fenofibrate (Lofibra) 134 mg DAILY 02/23/20 14:00 03/03/20 08:49 134 MG Ferrous Sulfate (Feosol) 325 mg [id number] 02/26/20 17:00 03/03/20 08:50 325 MG Furosemide (Lasix) 40 mg BID92 02/25/20 14:00 03/03/20 08:50 40 MG Gabapentin (Neurontin) 100 mg BID 02/23/20 14:00 03/03/20 08:50 100 MG Guaifenesin (Robitussin Dm) 10 ml PRN Q6HRS PRN 02/28/20 12:00 Heparin Sodium (Porcine) (Heparin Sodium) 1,350 unit PRN Q6HRS PRN 02/24/20 13:45 02/29/20 09:58 DC 02/27/20 06:09 1,350 UNIT Heparin Sodium/ Dextrose 250 ml @ 0 mls/hr CONT PRN 02/24/20 13:45 02/29/20 09:58 DC 02/29/20 00:30 21 MLS/HR Info (Anti-Coagulation Monitoring By Pharmacy) 1 each PRN DAILY PRN 02/24/20 12:15 02/29/20 10:53 DC 02/26/20 12:38 1 EACH Insulin Glargine (Lantus Syringe) 35 unit QHS 02/23/20 21:00 03/02/20 23:28 35 UNIT Insulin Human Lispro (HumaLOG) 35 units TIDWMEALS 02/24/20 13:00 03/02/20 17:31 10 UNITS Insulin Human Regular (HumuLIN R VIAL) 35 unit TID 02/24/20 14:00 02/24/20 12:23 DC Iron Sucrose 200 mg/Sodium Chloride 110 ml @ 55 mls/hr 1X ONCE 02/26/20 12:00 02/26/20 15:27 DC Isosorbide Mononitrate (Imdur) 30 mg DAILY 02/24/20 09:00 03/03/20 08:50 30 MG Lactobacillus Rhamnosus (Culturelle) 1 cap BID 02/27/20 21:00 03/03/20 08:50 1 CAP Levothyroxine Sodium (Synthroid) 100 mcg DAILY06 02/23/20 14:00 03/03/20 05:21 100 MCG Magnesium Sulfate 50 ml @ 25 mls/hr 1X ONCE 02/23/20 09:15 02/23/20 11:14 DC 02/23/20 09:38 25 MLS/HR Magnesium Sulfate/ Dextrose 100 ml @ 100 mls/hr 1X ONCE 02/28/20 12:00 02/28/20 12:59 DC 02/28/20 12:27 100 MLS/HR Montelukast Sodium (Singulair) 10 mg HS 02/23/20 21:00 03/02/20 23:29 10 MG Ondansetron HCl (Zofran) 4 mg PRN Q8HRS PRN 02/23/20 00:45 02/24/20 00:44 DC Pantoprazole Sodium (Protonix) 40 mg BIDAC 02/27/20 16:30 03/03/20 08:50 40 MG Piperacillin Sod/ Tazobactam Sod (Zosyn Per Pharmacy) 1 each PRN DAILY PRN 02/26/20 11:30 Piperacillin Sod/ Tazobactam Sod 3.375 gm/Sodium Chloride 50 ml @ 100 mls/hr Q6HRS 02/28/20 12:00 03/02/20 23:30 100 MLS/HR Piperacillin Sod/ Tazobactam Sod 4.5 gm/Sodium Chloride 100 ml @ 200 mls/hr Q6HRS 02/26/20 18:00 02/28/20 07:12 DC 02/28/20 06:18 200 MLS/HR Potassium Chloride (Klor-Con) 20 meq [id number] 03/03/20 08:00 03/03/20 08:51 20 MEQ Sacubitril/ Valsartan (Entresto 49 Mg-51 Mg) 1 tab DAILY 02/23/20 14:00 03/03/20 08:49 1 TAB Simethicone/ Sodium Bicarb/ Citric Ac (E-Z-Gas) 1 packet 1X ONCE 02/27/20 13:00 02/27/20 13:01 DC Warfarin Sodium (Coumadin - No Dose Today) 1 each 1X WARF ONCE 03/02/20 16:00 03/02/20 16:01 DC 03/02/20 16:00 1 EACH Warfarin Sodium (Coumadin Per Pharmacy) 1 each PRN DAILY PRN 02/24/20 13:15 03/02/20 12:40 1 EACH Warfarin Sodium (Coumadin) 5 mg 1X WARF ONCE 03/01/20 16:00 03/01/20 16:01 DC 03/01/20 16:29 5 MG Lab Laboratory Tests Test 03/02/20 11:40 03/02/20 16:47 03/02/20 21:03 03/03/20 03:16 Glucose (Fingerstick) 169 mg/dL (70-99) 108 mg/dL (70-99) 116 mg/dL (70-99) White Blood Count 9.4 x10^3/uL (4.0-11.0) Red Blood Count 3.52 x10^6/uL (3.50-5.40) Hemoglobin 8.0 g/dL (12.0-15.5) Hematocrit 25.5 % (36.0-47.0) Mean Corpuscular Volume 72 fL (79-100) Mean Corpuscular Hemoglobin 23 pg (25-35) Mean Corpuscular Hemoglobin Concent 32 g/dL (31-37) Red Cell Distribution Width 20.4 % (11.5-14.5) Platelet Count 360 x10^3/uL (140-400) Prothrombin Time 34.6 SEC (11.7-14.0) Prothromb Time International Ratio 3.4 (0.8-1.1) Sodium Level 138 mmol/L (136-145) Potassium Level 3.8 mmol/L (3.5-5.1) Chloride Level 102 mmol/L (98-107) Carbon Dioxide Level 31 mmol/L (21-32) Anion Gap 5 (6-14) Blood Urea Nitrogen 20 mg/dL (7-20) Creatinine 1.6 mg/dL (0.6-1.0) Estimated GFR (Cockcroft-Gault) 31.8 Glucose Level 133 mg/dL (70-99) Calcium Level 8.0 mg/dL (8.5-10.1) Test 03/03/20 07:07 Glucose (Fingerstick) 118 mg/dL (70-99) Results All relevant outside records, renal labs, imaging studies, telemetry/EKG's were reviewed. Justicifation of Admission Dx: Justifications for Admission: Justification of Admission Dx: Yes NAYA MARI MD Mar 03, 2020 11:05
--- NOTE | 2020-03-03 13:08 | PDOC3 ---
Discharge Summary Visit Information Date of Admission: Feb 23, 2020 Date of Discharge: Mar 03, 2020 Final Diagnosis Acute Hypoxic Resp Failure secondary to recurrent PE Chest pain; atypical. AMI ruled out. Acute respiratory failure with possible PE. Stable multifocal infiltrate and small left pleural effusion, better characterized on the CT performed 02/25/2020. Bilateral consolidative lung infiltrates which may represent pneumonia or aspiration pneumonitis. Moderate size left-sided pleural effusion and associated compressive BY CT CHEST atelectasis of the left lower lobe. Small right-sided pleural effusion. Severe ICM/NICM: Acute on chronic systolic CHF with severe ICM/NICM: EF at 20-25%. appears compensated H/o VT with ICD discharge. On Amiodarone H/o VT with ICD discharge. DM2 HLD CADs/p PCI/LAD PAD: s/p percutaneous revascularization. CKD HTN H/o PE s/p IVC filter. Hypomagnesemia MICROCYTIC ANEMIA History of breast cancer with prior left mastectomy. Abnormal CXR with possible faint mild interstitial infiltrates rule out covid 19 PLAN full dose AC FE PANEL VQ with intermediated probability for PE Cardiac catheterization 10/2018 showed patent LAD stent and 80% stenosis in small-caliber diagonal branch, which was noted in prior cardiac catheterization and is being medically managed. EF at 20-25%. s/p AICD ([employer] A). Device check. On Entresto On Amiodarone for rhythm maintenance IVF filter removed 02/18/20. Has been off OAC Replace Mg Add imdur per cards continue lasix continue 02 apprec pulm and cards input dvt ppx: full dose ac NEPHROLOGY FOLLOWING PO AUGMENTIN, PULM OK WITH D/C 03/02 INR HIGH, NO WARFARIN TODAY 03/02, INR TOMORROW CALL TO PCP HOME HEALTH, HOME O2 Problems Medical Problems: (1) Chest pain Status: Acute (2) Elevated d-dimer Status: Acute (3) Suspected 2018 novel coronavirus infection Status: Acute Brief Hospital Course Allergies Allergies Coded Allergies Type Severity Reaction Last Updated Verified insulin glargine Allergy Severe "swelling", hospitalized [facility] ONLY 09/27/19 Yes Vital Signs Vital Signs Date Time Temp Pulse Resp B/P (MAP) Pulse Ox O2 Delivery O2 Flow Rate FiO2 03/03/20 08:51 97 117/55 03/03/20 07:56 Nasal Cannula 3.0 03/03/20 07:00 98.0 18 99 98.0 Lab Results Laboratory Tests Test 03/01/20 16:37 03/01/20 17:37 03/01/20 20:37 03/02/20 05:22 Glucose (Fingerstick) 69 mg/dL (70-99) 88 mg/dL (70-99) 170 mg/dL (70-99) White Blood Count 8.3 x10^3/uL (4.0-11.0) Red Blood Count 3.45 x10^6/uL (3.50-5.40) Hemoglobin 7.9 g/dL (12.0-15.5) Hematocrit 24.4 % (36.0-47.0) Mean Corpuscular Volume 71 fL (79-100) Mean Corpuscular Hemoglobin 23 pg (25-35) Mean Corpuscular Hemoglobin Concent 33 g/dL (31-37) Red Cell Distribution Width 20.1 % (11.5-14.5) Platelet Count 310 x10^3/uL (140-400) Neutrophils (%) (Auto) 73 % (31-73) Lymphocytes (%) (Auto) 14 % (24-48) Monocytes (%) (Auto) 11 % (0-9) Eosinophils (%) (Auto) 1 % (0-3) Basophils (%) (Auto) 1 % (0-3) Neutrophils # (Auto) 6.0 x10^3/uL (1.8-7.7) Lymphocytes # (Auto) 1.2 x10^3/uL (1.0-4.8) Monocytes # (Auto) 0.9 x10^3/uL (0.0-1.1) Eosinophils # (Auto) 0.1 x10^3/uL (0.0-0.7) Basophils # (Auto) 0.0 x10^3/uL (0.0-0.2) Prothrombin Time 35.3 SEC (11.7-14.0) Prothromb Time International Ratio 3.5 (0.8-1.1) Sodium Level 139 mmol/L (136-145) Potassium Level 3.4 mmol/L (3.5-5.1) Chloride Level 102 mmol/L (98-107) Carbon Dioxide Level 30 mmol/L (21-32) Anion Gap 7 (6-14) Blood Urea Nitrogen 17 mg/dL (7-20) Creatinine 1.3 mg/dL (0.6-1.0) Estimated GFR (Cockcroft-Gault) 40.4 Glucose Level 105 mg/dL (70-99) Calcium Level 8.0 mg/dL (8.5-10.1) Phosphorus Level 3.1 mg/dL (2.6-4.7) Albumin 1.8 g/dL (3.4-5.0) Test 03/02/20 07:32 03/02/20 11:40 03/02/20 16:47 03/02/20 21:03 Glucose (Fingerstick) 108 mg/dL (70-99) 169 mg/dL (70-99) 108 mg/dL (70-99) 116 mg/dL (70-99) Test 03/03/20 03:16 03/03/20 07:07 White Blood Count 9.4 x10^3/uL (4.0-11.0) Red Blood Count 3.52 x10^6/uL (3.50-5.40) Hemoglobin 8.0 g/dL (12.0-15.5) Hematocrit 25.5 % (36.0-47.0) Mean Corpuscular Volume 72 fL (79-100) Mean Corpuscular Hemoglobin 23 pg (25-35) Mean Corpuscular Hemoglobin Concent 32 g/dL (31-37) Red Cell Distribution Width 20.4 % (11.5-14.5) Platelet Count 360 x10^3/uL (140-400) Prothrombin Time 34.6 SEC (11.7-14.0) Prothromb Time International Ratio 3.4 (0.8-1.1) Sodium Level 138 mmol/L (136-145) Potassium Level 3.8 mmol/L (3.5-5.1) Chloride Level 102 mmol/L (98-107) Carbon Dioxide Level 31 mmol/L (21-32) Anion Gap 5 (6-14) Blood Urea Nitrogen 20 mg/dL (7-20) Creatinine 1.6 mg/dL (0.6-1.0) Estimated GFR (Cockcroft-Gault) 31.8 Glucose Level 133 mg/dL (70-99) Calcium Level 8.0 mg/dL (8.5-10.1) Glucose (Fingerstick) 118 mg/dL (70-99) Laboratory Tests Test 03/02/20 16:47 03/02/20 21:03 03/03/20 03:16 03/03/20 07:07 Glucose (Fingerstick) 108 mg/dL (70-99) 116 mg/dL (70-99) 118 mg/dL (70-99) White Blood Count 9.4 x10^3/uL (4.0-11.0) Red Blood Count 3.52 x10^6/uL (3.50-5.40) Hemoglobin 8.0 g/dL (12.0-15.5) Hematocrit 25.5 % (36.0-47.0) Mean Corpuscular Volume 72 fL (79-100) Mean Corpuscular Hemoglobin 23 pg (25-35) Mean Corpuscular Hemoglobin Concent 32 g/dL (31-37) Red Cell Distribution Width 20.4 % (11.5-14.5) Platelet Count 360 x10^3/uL (140-400) Prothrombin Time 34.6 SEC (11.7-14.0) Prothromb Time International Ratio 3.4 (0.8-1.1) Sodium Level 138 mmol/L (136-145) Potassium Level 3.8 mmol/L (3.5-5.1) Chloride Level 102 mmol/L (98-107) Carbon Dioxide Level 31 mmol/L (21-32) Anion Gap 5 (6-14) Blood Urea Nitrogen 20 mg/dL (7-20) Creatinine 1.6 mg/dL (0.6-1.0) Estimated GFR (Cockcroft-Gault) 31.8 Glucose Level 133 mg/dL (70-99) Calcium Level 8.0 mg/dL (8.5-10.1) Brief Hospital Course Ms Rodriguez is a 69 yo obese patient with a BMI of 35. She has no significant tobacco history. She has cardiomyopathy with an EF of 20%-25%. She also has history of pulmonary embolism, which was in 2019. She was taken off her anticoagulation after her V/Q scan did not reveal any persistent pulmonary embolism. She also had an IVC filter, which the Hematology recommended to be removed. The patient's Dopplers were negative and followup V/Q scan was negative for PE. The patient underwent a removal of IVC filter on the 02/17. Returned to ED with shortness of breath. VQ scan consistent with right lower lobe mismatch, started on heparin and warfarin. 02/24: She is feeling wiped out, short of breath. No CP currently, still on 5L NCO2 currently. Afebrile. CT chest. Bilateral consolidative lung infiltrates which may represent pneumonia or aspiration pneumonitis. Moderate size left-sided pleural effusion and associated compressive atelectasis of the left lower lobe. Small right-sided pleural effusion. Right paratracheal lymphadenopathy which may be reactive in nature. Mild cardiomegaly. Calcified atheromatous disease of the coronary arteries. 35 mm fluid collection within the gallbladder fossa. Cholecystectomy clips are apparent. 02/25: She is still feeling poorly, weak. Iron 8. Cr down to 1.4. Afebrile. Based on CT results, starting antibiotics and iron today, lasix IV per cardiology. INR is 1, will need to adjust warfarin and ask STAFF OCCUPATIONAL THERAPIST evaluate based on left upper lobe and right lower lobe and aspiration may be occurring. 02/26: INR 1.5. Cr 1.6. She doesn't feel much better, still with cough. Started on zosyn. Esophogram today. 02/27: K 3.3, Cr 1.6, INR 1.7. Mag 1.8. Noted on esophagram with no reflux. Her cough is more productive today. 03/02 She feels stronger. Back on home O2 3 L nasal cannula. PULM OK WITH D/C TODAY Discharge Information Condition at Discharge: Improved Follow Up: Weeks Disposition/Orders: D/C to Home w/ HH Scheduled Albuterol Sulfate (Proair Hfa Inhaler) 8.5 Gm Hfa.aer.ad, 2 PUFF IH PRN Q4-6HRS, #1 (Reported) Entered as Reported by: Lsie Tobin on 05/20/15 1429 Last Action: Reviewed on 02/23/20 1132 by MAHOGANY THAKUR Amiodarone Hcl (Amiodarone Hcl) 200 Mg Tablet, 1 TAB PO DAILY for hypertension, #90 Ref 1 (Reported) Entered as Reported by: OBI GLOVER on 12/23/19 0020 Last Action: Continued on 02/23/20 1244 by MAHOGANY THAKUR Amoxicillin/Potassium Clav (Augmentin 875-125 Tablet) 1 Each Tablet, 1 TAB PO BID for PNEUMONIA for 7 Days, #14 Ref 0 Prescribed by: FREDO WOO MD on 03/02/20 1425 Ascorbic Acid (Vitamin C) 500 Mg Tablet, 500 MG PO DAILY for SUPPLEMENT for 30 Days, #30 Prescribed by: FREDO WOO MD on 03/02/20 1425 Aspirin (Aspirin) 81 Mg Tab.chew, 81 MG PO DAILY for , (Reported) Entered as Reported by: ROSMERY PENA on 02/18/20 0854 Last Action: Continued on 02/23/20 1244 by MAHOGANY THAKUR Atorvastatin Calcium (Atorvastatin Calcium) 40 Mg Tablet, 40 MG PO HS for FOR CHOLESTEROL, #30 Ref 0 (Reported) Entered as Reported by: ANY VILLANUEVA on 04/08/14 1121 Last Action: Continued on 02/23/20 1244 by MAHOGANY THAKUR Citalopram Hydrobromide (Citalopram Hbr) 20 Mg Tablet, 1 TAB PO DAILY08 for depr ession, #30 Ref 5 (Reported) Entered as Reported by: OBI GLOVER on 12/23/19 0020 Last Action: Continued on 02/23/20 1244 by MAHOGANY THAKUR Docusate Sodium (Colace) 100 Mg Capsule, 1 CAP PO BID for constipation for 30 Da ys, #60 Ref 0 Prescribed by: SUSHANT BEDOLLA on 10/14/19 0933 Last Action: Continued on 02/23/20 1244 by MAHOGANY THAKUR Fenofibrate Nanocrystallized (Fenofibrate) 145 Mg Tablet, 1 TAB PO DAILY for , #30 Ref 5 (Reported) Entered as Reported by: JUAN CARLOS PINEDA on 05/14/15 0906 Last Action: Converted on 02/23/20 1244 by MAHOGANY THAKUR Ferrous Sulfate (Feosol) 325 Mg Tablet, 325 MG PO TIDWMEALHC for ANEMIA for 30 Days, #120 Prescribed by: FREDO WOO MD on 03/02/20 1425 Furosemide (Furosemide) 40 Mg Tablet, 40 MG PO BID92 for HEART FAILURE for 30 Days, #60 Prescribed by: FREDO WOO MD on 03/02/20 1425 Gabapentin (Gabapentin ) 100 Mg Capsule, 100 MG PO BID for , (Reported) Entered as Reported by: ANY VILLANUEVA on 04/08/141120 Last Action: Continued on 02/23/20 1244 by MAHOGANY THAKUR Insulin Glargine,Hum.rec.anlog (Lantus Solostar) 100 Unit/1 Ml Insuln.pen, 35 UNIT SQ HS for dm, (Reported) Entered as Reported by: ANY VILLANUEVA on 04/08/141120 Last Action: Converted on 02/23/20 1244 by MAHOGANY THAKUR Insulin Lispro (Humalog) 100 Unit/1 Ml Vial, 35 UNIT SQ TID, (Reported) Entered as Reported by: ANY VILLANUEVA on 04/08/141120 Last Action: Continued on 02/24/20 1217 by MORGAN PALAFOX Isosorbide Mononitrate (Isosorbide Mononitrate Er) 30 Mg Tab.er.24h, 30 MG PO DAILY for CHOLESTEROL for 30 Days, #30 Prescribed by: FREDO WOO MD on 03/02/20 1425 Lactobacillus Rhamnosus Gg (Culturelle) 1 Each Cap.sprink, 1 CAP PO BID for SUPPLEMENT for 30 Days, #60 Prescribed by: FREDO WOO MD on 03/02/20 1425 Levothyroxine Sodium (Levothyroxine Sodium) 100 Mcg Tablet, 1 TAB PO DAILY, #30 Ref 5 (Reported) Entered as Reported by: TANMAY CUADRA on 05/26/16 0644 Last Action: Continued on 02/23/20 1244 by MAHOGANY THAKUR Montelukast Sodium (Montelukast Sodium Tablet ) 10 Mg Tablet, 10 MG PO HS for FOR ASTHMA, #30 Ref 0 (Reported) Entered as Reported by: ROSMERY PENA on 11/30/17 0720 Last Action: Continued on 02/23/20 1244 by MAHOGANY THAKUR Pantoprazole Sodium (Pantoprazole Sodium ) 40 Mg Tablet.dr, 40 MG PO DAILY for , (Reported) Entered as Reported by: ANY VILLANUEVA on 04/08/141120 Last Action: Continued on 02/23/20 1244 by MAHOGANY THAKUR Pantoprazole Sodium (Pantoprazole Sodium ) 40 Mg Tablet.dr, 40 MG PO BIDAC f or SUPPLEMENT for 30 Days, #60 Prescribed by: FREDO WOO MD on 03/02/20 1425 Potassium Chloride (Klor-Con M20) 20 Meq Tab.er.prt, 20 MEQ PO DAILYWBKFT for SUPPLEMENT for 10 Days, #10 Prescribed by: FREDO WOO MD on 03/02/20 1425 Sacubitril/Valsartan (Entresto 97 mg-103 mg Tablet) 1 Each Tablet, 0.5 EACH PO DAILY for , (Reported) Entered as Reported by: ROSMERY PENA on 02/18/20 0854 Last Action: Converted on 02/23/20 1244 by MAHOGANY THAKUR Warfarin Sodium (Coumadin) 2.5 Mg Tablet, 1 EACH MC 1X WARF for PULMONARY EMBOLUS for 30 Days, #30 Prescribed by: FREDO WOO MD on 03/02/20 1425 Scheduled PRN Alprazolam (Alprazolam) 0.25 Mg Tablet, 1 TAB PO BID PRN for ANXIETY / AGITATION, #30 Prescribed by: JOSE M MACKAY on 10/02/19 1351 Last Action: Continued on 02/23/201243 by MAHOGANY THAKUR Guaifenesin/Dextromethorphan (Guaifenesin Dm Syrup) 5 Ml Syrup, 10 ML PO PRN Q6HRS PRN for COUGH for 14 Days, #240 Prescribed by: FREDO WOO MD on 03/02/20 1425 Hydrocodone Bit/Acetaminophen (Hydrocodone-Apap 7.5-325 ) 1 Tab Tablet, 1 TAB PO Q4HRS PRN for PAIN, Ref 0 (Reported) Entered as Reported by: OBI GLOVER on 12/23/1919 Last Action: Continued on 02/23/201243 by MAHOGANY THAKUR Miscellaneous Medications Acetaminophen (Tylenol) 325 Mg Tablet, 650 MG PO, (Reported) Entered as Reported by: JUAN CARLOS PINEDA on 05/14/15 0919 Last Action: Continued on 02/23/201243 by MAHOGANY THAKUR Discontinued Medications Furosemide (Furosemide) 20 Mg Tablet, 20 MG PO BID for chf, (Reported) Entered as Reported by: OBI GLOVER on 12/23/19 002 Last Action: Continued on 02/23/201243 by MAHOGANY THAKUR Patient Instructions Patient Instructions < 30 minutes Justicifation of Admission Dx: Justifications for Admission: Justification of Admission Dx: Yes ARMAS,ANNMARIE W MD Mar 03, 2020 13:08
== END 2020-03-03 11:10 | disposition home health service (06) | DRG 177 ==
LOC: ER 21:25 → ED HOLD 02-23 01:34 → 6 SOUTH 02-23 01:44 → 2 SOUTH 02-24 15:24
PROVIDERS: ADMIT Internal Medicine; ATTEND Internal Medicine
DX: J69.0 Pneumonitis due to inhalation of food and vomit (principal); I26.99 Other pulmonary embolism without acute cor pulmonale; J96.01 Acute respiratory failure with hypoxia; I50.23 Acute on chronic systolic (congestive) heart failure; E87.1 Hypo-osmolality and hyponatremia; I13.0 Hypertensive heart and chronic kidney disease with heart failure and stage 1 through stage 4 chronic kidney disease, or unspecified chronic kidney disease; I42.8 Other cardiomyopathies; J98.11 Atelectasis; Z68.41 Body mass index [BMI] 40.0-44.9, adult; C50.919 Malignant neoplasm of unspecified site of unspecified female breast; E03.9 Hypothyroidism, unspecified; D50.9 Iron deficiency anemia, unspecified; E11.22 Type 2 diabetes mellitus with diabetic chronic kidney disease; E11.51 Type 2 diabetes mellitus with diabetic peripheral angiopathy without gangrene; E66.9 Obesity, unspecified; E78.00 Pure hypercholesterolemia, unspecified; E78.5 Hyperlipidemia, unspecified; E83.42 Hypomagnesemia; E87.6 Hypokalemia; I25.10 Atherosclerotic heart disease of native coronary artery without angina pectoris; I25.5 Ischemic cardiomyopathy; I27.29 Other secondary pulmonary hypertension; J44.9 Chronic obstructive pulmonary disease, unspecified; N18.3 Chronic kidney disease, stage 3 (moderate); N39.3 Stress incontinence (female) (male); Z68.35 Body mass index [BMI] 35.0-35.9, adult; Z79.01 Long term (current) use of anticoagulants; Z82.49 Family history of ischemic heart disease and other diseases of the circulatory system; Z85.3 Personal history of malignant neoplasm of breast; Z86.711 Personal history of pulmonary embolism; Z87.891 Personal history of nicotine dependence; Z90.12 Acquired absence of left breast and nipple; Z90.710 Acquired absence of both cervix and uterus; Z95.5 Presence of coronary angioplasty implant and graft; Z95.810 Presence of automatic (implantable) cardiac defibrillator; Z95.828 Presence of other vascular implants and grafts; F41.9 Anxiety disorder, unspecified; K21.9 Gastro-esophageal reflux disease without esophagitis; M19.90 Unspecified osteoarthritis, unspecified site; Z20.828 Contact with and (suspected) exposure to other viral communicable diseases
CPT/HCPCS: 36415; 71045; 71250; 74220; 74230; 78580; 80048; 80053; 80061; 80069; 82553; 82962; 83540; 83550; 83690; 83735; 83880; 84145; 84484; 85025; 85027; 85379; 85520; 85610; 85730; 87804; 93005; 93970; 99285; A9540; J1644; J1815; J2543; J3475; 92611-GN; 97530-GO; 97530-GP; G0378; U0003-CS

== ENCOUNTER 2020-03-31 19:43 | Inpatient (IN) | payer MEDICARE, BC ==
[~2020-03-31] VITALS: Ht 160 cm; Wt 91.2 kg
[~2020-03-31 19:43] MED LIST changes: +ASCO500T4 PO; +FERR325T72 PO; +GUAI5SYR PO; +POTA20TA4 PO; +WARF2.5T2 MC
--- NOTE | 2020-03-31 20:49 | PHYS DOC ---
Past Medical History Past Medical History: Cancer, COPD, Diabetes-Type II, High Cholesterol, H ypertension, Hypothyroid, [place] Additional Past Medical Histor: BREAST CA Past Surgical History: Cholecystectomy, Hysterectomy, Pacemaker, Tonsillectomy, Other Additional Past Surgical Histo: CARDIAC STENT, FEMORAL STENT, LEFT MASTECTOMY, IVC filter removal Smoking Status: Never Smoker Alcohol Use: None Drug Use: None General Adult EDM: Chief Complaint: SHORTNESS OF BREATH HPI: HPI: Patient is a 70 year old female who presents with complaints of dyspnea on exertion for the past 2 to 3 weeks, patient states that when she was discharged from the hospital she felt this way and is not gotten any better. Patient states that she was diagnosed with a pulmonary embolus during her hospital stay was started on Coumadin. Patient denies any fever chills, any COVID19 virus concerns or exposure. Patient does not wish to be tested again, but states will get tested if she needs to to be admitted. Patient denies any visual changes cough chest pain abdominal pain nausea vomiting diarrhea or constipation. Has any problems urinating, any back pain, joint pains, skin rashes, headaches, focal weaknesses, sensory changes, swelling of her glands. Patient denies any recent life changes, depressions, anxieties, homicidal or suicidal ideations. Review of Systems: Review of Systems: Constitutional: Denies fever or chills. Eyes: Denies change in visual acuity. HENT: Denies nasal congestion or sore throat. Respiratory: Denies cough. Complains of shortness of breath on exertion. Cardiovascular: Denies chest pain or edema. GI: Denies abdominal pain, nausea, vomiting, bloody stools or diarrhea. : Denies dysuria. Musculoskeletal: Denies back pain or joint pain. Integument: Denies rash. Neurologic: Denies headache, focal weakness or sensory changes. Endocrine: Denies polyuria or polydipsia. Lymphatic: Denies swollen glands. Psychiatric: Denies depression or anxiety. Heart Score: Risk Factors: Risk Factors: DM, Current or recent (<one month) smoker, HTN, HLP, family history of CAD, obesity. Risk Scores: Score 0 - 3: 2.5% MACE over next 6 weeks - Discharge Home Score 4 - 6: 20.3% MACE over next 6 weeks - Admit for Clinical Observation Score 7 - 10: 72.7% MACE over next 6 weeks - Early Invasive Strategies Allergies: Allergies: Allergies Coded Allergies Type Severity Reaction Last Updated Verified insulin glargine Allergy Severe "swelling", hospitalized [facility] ONLY 09/27/19 Yes Physical Exam: PE: Constitutional: Well developed, well nourished, no acute distress, non-toxic appearance. Patient wears 3 L of O2 at all times. HENT: Normocephalic, atraumatic, bilateral external ears normal, oropharynx moist, no oral exudates, nose normal. Eyes: PERRLA, EOMI, conjunctiva normal, no discharge. Neck: Normal range of motion, no tenderness, supple, no stridor. Cardiovascular:Heart rate regular rhythm, no murmur no abnormalities noted to auscultation. Lungs & Thorax: Bilateral breath sounds clear to auscultation diminished in the lower lobes, all other lung nettles clear to auscultation Abdomen: Bowel sounds normal, soft, no tenderness, no masses, no pulsatile masses. Skin: Warm, dry, no erythema, no rash. Back: No tenderness, no CVA tenderness. Extremities: No tenderness, no cyanosis, no clubbing, ROM intact, no edema. Neurologic: Alert and oriented X 3, normal motor function, normal sensory function, no focal deficits noted. Psychologic: Affect normal, judgement normal, mood normal. EKG: EKG: [] Radiology/Procedures: Radiology/Procedures: [] Course & Med Decision Making: Course & Med Decision Making Pertinent Labs and Imaging studies reviewed. (See chart for details) 70-year-old female presents emergency department complaining of dyspnea on exertion, patient states that she felt this way when she was discharged, patient states that the last time she was admitted she was diagnosed with a pulmonary embolus and has been treated with p.o. Coumadin. Vital signs are reviewed, labs were drawn. Discussed with patient being discharged home. Patient became very upset and anxious, patient started hyperventilating and crying. Stating that she is in bad shape and she cannot do anything at home without becoming extremely short of breath. Contacted inpatient [facility] Dr. Armas and reviewed case, Dr. Armas agreed to admit patient to the COVID unit for further evaluation. Discussed with patient being admitted to the hospital, the patient immediately became happy and in no apparent distress. Patient admitted to the hospital Dragon Disclaimer: Dragon Disclaimer: This electronic medical record was generated, in whole or in part, using a voice recognition dictation system. Departure Departure Impression: Primary Impression: Dyspnea on exertion Additional Impressions: Elevated brain natriuretic peptide (BNP) level Person under investigation for COVID-19 Disposition: ADMITTED INPATIENT Admitting Physician: KARLA (DR. ARMAS) Condition: GUARDED Referrals: YARELI GOEL (PCP) Justicifation of Admission Dx: Justifications for Admission: Justification of Admission Dx: Yes Comments: Dyspnea on exertion, elevated BNP, person under investigation for COVID-19 virus. DALIA CHACON APRN Mar 31, 2020 20:49
[2020-03-31 21:22] LABS: BASO # 0.1 x10^3/uL (0.0-0.2); BASO % 1 % (0-3); EOS # 0.1 x10^3/uL (0.0-0.7); EOS % 1 % (0-3); HEMATOCRIT 35.3 % (36.0-47.0); HEMOGLOBIN 10.7 g/dL (12.0-15.5); LYMPH # 1.1 x10^3/uL (1.0-4.8); LYMPH % 15 % (24-48); MEAN CORPUSCULAR HEMOGLOBIN 24 pg (25-35); MEAN CORPUSCULAR HGB CONC 30 g/dL (31-37); MEAN CORPUSCULAR VOLUME 78 fL (79-100); MONO # 0.5 x10^3/uL (0.0-1.1); MONO % 7 % (0-9); NEUT # 5.4 x10^3/uL (1.8-7.7); NEUT % 76 % (31-73); PLATELET COUNT 155 x10^3/uL (140-400); RED BLOOD COUNT 4.55 x10^6/uL (3.50-5.40); RED CELL DISTRIBUTION WIDTH 20.5 % (11.5-14.5); WHITE BLOOD COUNT 7.2 x10^3/uL (4.0-11.0)
[2020-03-31 21:23] LABS: CALCIUM 8.4 mg/dL (8.5-10.1); CREATININE 2.1 mg/dL (0.6-1.0); GFR 23.2; POTASSIUM 4.5 mmol/L (3.5-5.1)
[2020-03-31 21:29] LABS: ALBUMIN 3.1 g/dL (3.4-5.0); ALBUMIN/GLOBULIN RATIO 0.9 (1.0-1.7); MAGNESIUM 1.9 mg/dL (1.8-2.4); TOTAL BILIRUBIN 0.5 mg/dL (0.2-1.0); TOTAL PROTEIN 6.6 g/dL (6.4-8.2)
[2020-03-31 21:32] LABS: PROTHROMBIN TIME PATIENT 24.8 SEC (11.7-14.0)
[2020-03-31 21:35] LABS: D-DIMER 1.13 ug/mlFEU (0.00-0.50)
[2020-03-31 21:50] LABS: ANISOCYTOSIS MOD; HYPOCHROMIA SLIGHT; PLT ESTIMATE ADEQUATE (ADEQUATE); POLYCHROMASIA SLIGHT
[2020-04-01] MEDS ORDERED: WARF1TAB2 PO (00:20)
[2020-04-01] MEDS ORDERED: FURO-69 PO (00:48)
[2020-04-01] MEDS ORDERED: WARF3TAB50 PO ×2 (00:48→21:46)
[2020-04-01 02:08] VITALS: BP 148/77
[2020-04-01 07:00] VITALS: BP 140/68
[2020-04-01] MEDS ORDERED: ALPRAZolam 0.25 MG TABLET PO PRN (07:00)
[2020-04-01] MEDS ORDERED: HYDROcodone/APAP 7.5/325MG 1 TAB TABLET PO PRN (07:00)
[2020-04-01] MEDS ORDERED: SACUBITRIL/VALSARTAN 49/51MG TABLET. PO SCH (09:00)
[2020-04-01] MEDS: CITALOPRAM 20 MG TABLET. PO SCH (09:15)
[2020-04-01] MEDS: ASCORBIC ACID 500 MG TABLET PO SCH (09:15)
[2020-04-01] MEDS: FENOFIBRATE,MICRONIZED 134 MG CAPSULE PO SCH (09:15)
[2020-04-01] MEDS: GABAPENTIN 100 MG CAPSULE. PO SCH ×2 (09:16→21:09)
[2020-04-01] MEDS: DOCUSATE SODIUM 100 MG CAPSULE. PO SCH ×2 (09:16→21:09)
[2020-04-01] MEDS: PANTOPRAZOLE 40 MG TABLET.DR. PO SCH ×2 (09:16→17:28)
[2020-04-01] MEDS: FERROUS SULFATE 325 MG TABLET. PO SCH ×4 (09:16→21:09)
[2020-04-01] MEDS: AMIODARONE HCL 200 MG TABLET. PO SCH (09:16)
[2020-04-01] MEDS: ASPIRIN CHEWABLE 81 MG TABLET. PO SCH (09:16)
[2020-04-01] MEDS: POTASSIUM CHLORIDE 20 MEQ TABLET.ER. PO SCH (09:17)
[2020-04-01] MEDS: LEVOTHYROXINE 100 MCG TABLET PO SCH (09:17)
[2020-04-01] MEDS: ACETAMINOPHEN 325 MG TABLET. PO PRN ×2 (09:21→21:09)
[2020-04-01] MEDS: INSULIN LISPRO 300 UNITS/3 ML VIAL. SQ SCH ×3 (10:11→17:32)
--- NOTE | 2020-04-01 10:31 | CONS ---
DATE OF CONSULTATION: 04/01/2020 PULMONARY CONSULTATION ATTENDING PHYSICIAN: Dr. Pérez. REASON FOR CONSULTATION: Hypoxia and dyspnea. HISTORY OF PRESENT ILLNESS: The patient is a 70-year-old obese patient with a BMI of 35. She has history of cardiomyopathy with an EF of 20-25%. She has history of pulmonary embolism, which was in 2018. At that time, after appropriate treatment, she was taken off of anticoagulation. She also had an IVC filter, which was removed as well. She was readmitted in February and was found to have abnormal V/Q scan consistent with a [id number] probability for pulmonary embolism. She was restarted back on her anticoagulation. She was brought into the hospital after she was complaining of increasing shortness of breath. Normally, she is on home oxygen at 3 liters on a 24-hour basis. She denies any chest pain, but did feel lightheaded and dizzy. The patient had lower extremity edema, which is stated that it is improving. No cough, no fever, no chills. Her chest x-ray was reviewed. She still has mild residual congestive heart failure. PAST MEDICAL HISTORY: Significant for history of pulmonary embolism in 2018, which was subsequently resolved and taken off of anticoagulation. IVC filter was removed in 02/2020. History of recurrent PE in February. History of coronary artery disease with EF of 20-25%. History of previous stents. History of breast cancer. History of cholecystectomy, hysterectomy and tonsillectomy. Left mastectomy. PAST SURGICAL HISTORY: Surgery as discussed above. ALLERGIES: PENICILLIN. REVIEW OF SYSTEMS: The 12-point system obtained. Pertinent positives discussed in my history of present illness, otherwise noncontributory. All systems that were negative were reviewed as well. SOCIAL HISTORY: Nonsmoker. MEDICATIONS: All reviewed as listed in the [facility]. FAMILY HISTORY: Noncontributory to lungs. PHYSICAL EXAMINATION: VITAL SIGNS: Reviewed. Blood pressure 140/68, afebrile, and pulse ox 99% on 3 liters. NECK: Supple. LUNGS: With diminished breath sounds. CARDIOVASCULAR: With a regular rate. ABDOMEN: Soft and obese. EXTREMITIES: With 1+ pitting edema. LABORATORY DATA: Reviewed. White cell count 7.2, hemoglobin 10.7, and platelets are 155. BUN 23 and creatinine 2.1. INR is 2.3. IMPRESSION: 1. Dyspnea with exertion for the last few days, likely related to acute on chronic systolic heart failure. The patient has history of pulmonary embolism and has been on Coumadin with therapeutic INR and clinically low suspicion for any recurrent thromboembolic disease. 2. The patient with history of pulmonary embolism in 2019, which was appropriately treated and once it was resolved she was taken off of anticoagulation. She also had an IVC filter, which was subsequently removed as well. 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 Her INR is therapeutic. 3. No significant tobacco history. 4. History of coronary artery disease with stents and ejection fraction of 20-25%. 5. Morbid obesity. 6. Chronic kidney disease. RECOMMENDATIONS: 1. Continue with present oxygen at 3 liters. 2. Cautious diuresis, keeping an eye on her renal function. 3. Her symptoms are related to decompensated congestive heart failure. We will ask cardiology's help. 4. Continue with Coumadin. INR is therapeutic. We will keep the INR between 2 and 3. 5. We will follow along with you. Discussed with Cardiology. WONG METZGER MD DR: KYE/kenneth JOB#: [id number] / [id number]
[2020-04-01 11:00] VITALS: BP 123/68
--- NOTE | 2020-04-01 11:41 | PDOC2 ---
PEDRO COLÓN PROFESSOR OF CRIMINAL JUSTICE 04/01/20 1141: CARDIAC CONSULT DATE OF CONSULT Date of Consult DATE: 04/01/20 TIME: 11:01 HISTORY OF PRESENT ILLNESS HISTORY OF PRESENT ILLNESS This is a pleasant 70 yo female admitted for complains of shortness of breath. She uses O2 at 3 LPMregularly and her lasix has been increased lately. Her UOP has been the same and follows her FR and low salt regimen. In the last week she has noticed getting more SOA with intermittent swelling to her legs and positive for orthopnea and PND. Has nonproductive cough with some nausea and some dizziness but no palpitations or chest pain. Reports compliance with her medications. No recent injury or falls and no passing out. She uses a routine i nhaler which she galindo not know the name but has not been using her rescue inhalers. She lives alone and has been SOA with exertion. She does have hx of PE and has hx of PAFIB but her rhythm has been stable and in SR. Denies any fever or chills. PAST MEDICAL HISTORY Past Medical History Cardiovascular: CAD, CHF, HTN, Hyperlipidemia, PAD, VT Pulmonary: Pneumonia, PE, pulmonary HTN CENTRAL NERVOUS SYSTEM: Carpal Tunnel Syndrome, Periperal neuropathy GI: GERD, diverticulosis, presbyesophagus Heme/Onc: Cancer, anemia, chronic anticoagulation therapy Psych: Anxiety Musculoskeletal: Osteoarthritis Infectious disease: No pertinent hx Renal/: No pertinent hx Endocrine: Diabetes, Hypothyroidism PAST SURGICAL HISTORY Past Surgical History Left Mastectomy, Tubal Ligation, Tonsillectomy, Hysterectomy, Cholecystectomy, AICD, IVC placement and removal, [place]/stent FAMILY HISTORY Family History: Heart Disease SOCIAL HISTORY Smoke: No ALCOHOL: none Drugs: None Lives: Alone CURRENT MEDICATIONS CURRENT MEDICATIONS Current Medications Medications (Trade) Dose Ordered Sig/Lester Route PRN Reason Start Time Stop Time Status Last Admin Dose Admin Ascorbic Acid (Vitamin C) 500 mg DAILY PO 04/01/20 09:00 04/01/20 09:15 Aspirin (Aspirin Chewable) 81 mg DAILY PO 04/01/20 09:00 04/01/20 09:16 Citalopram Hydrobromide (CeleXA) 20 mg DAILY08 PO 04/01/20 08:00 04/01/20 09:15 Docusate Sodium (Colace) 100 mg BID PO 04/01/20 09:00 04/01/20 09:16 Ferrous Sulfate (Feosol) 325 mg TIDWMEALHC PO 04/01/20 08:00 04/01/20 09:16 Gabapentin (Neurontin) 100 mg BID PO 04/01/20 09:00 04/01/20 09:16 Levothyroxine Sodium (Synthroid) 100 mcg DAILY06 PO 04/01/20 07:00 04/01/20 09:17 Pantoprazole Sodium (Protonix) 40 mg BIDAC PO 04/01/20 07:30 04/01/20 09:16 Potassium Chloride (Klor-Con) 20 meq DAILYWBKFT PO 04/01/20 08:00 04/01/20 09:17 Fenofibrate (Lofibra) 134 mg DAILY PO 04/01/20 09:00 04/01/20 09:15 Sacubitril/ Valsartan (Entresto 49 Mg-51 Mg) 1 tab DAILY PO 04/01/20 09:00 04/01/20 09:15 Acetaminophen (Tylenol) 650 mg PRN Q6HRS PRN PO MILD PAIN 1-3 04/01/20 07:15 04/01/20 09:21 Amiodarone HCl (Cordarone) 200 mg DAILY PO 04/01/20 09:00 04/01/20 09:16 Insulin Human Lispro (HumaLOG) 15 units TIDWMEALS SQ 04/01/20 08:00 04/01/20 10:11 ALLERGIES ALLERGIES: Coded Allergies: insulin glargine (Verified Allergy, Severe, "swelling", hospitalized [facility] ONLY, 09/27/19) allergy is [place] ONLY, takes [place] ROS Review of System 14 point ROS evaluated with pertinent positives noted per HPI PHYSICAL EXAM General: Alert, Oriented X3, Cooperative, No acute distress HEENT: Atraumatic, Mucous membr. moist/pink Lungs: Other (CXR reviewed, diminished) Heart: Regular rate (SR), Normal S1, Normal S2, Other (S4) Abdomen: No tenderness, Other (obese) Extremities: No cyanosis, Other (trace LE edema) Skin: No breakdown, No significant lesion Neuro: Normal speech, Sensation intact Psych/Mental Status: Mental status NL, Mood NL MUSCULOSKELETAL: Osteoarthritic changes both hands VITALS/I&O VITALS/I&O: Vital Signs Date Time Temp Pulse Resp B/P (MAP) Pulse Ox O2 Delivery O2 Flow Rate FiO2 04/01/20 09:16 79 140/68 04/01/20 07:00 97.0 20 99 Nasal Cannula 3.0 97.0 I & O 03/31/20 03/31/20 04/01/20 15:00 23:00 07:00 Intake Total 120 ml Output Total 300 ml Balance -180 ml LABS Lab: Laboratory Tests Test 03/31/20 21:00 04/01/20 07:41 White Blood Count 7.2 x10^3/uL (4.0-11.0) Red Blood Count 4.55 x10^6/uL (3.50-5.40) Hemoglobin 10.7 g/dL (12.0-15.5) L Hematocrit 35.3 % (36.0-47.0) L Mean Corpuscular Volume 78 fL (79-100) L Mean Corpuscular Hemoglobin 24 pg (25-35) L Mean Corpuscular Hemoglobin Concent 30 g/dL (31-37) L Red Cell Distribution Width 20.5 % (11.5-14.5) H Platelet Count 155 x10^3/uL (140-400) Neutrophils (%) (Auto) 76 % (31-73) H Lymphocytes (%) (Auto) 15 % (24-48) L Monocytes (%) (Auto) 7 % (0-9) Eosinophils (%) (Auto) 1 % (0-3) Basophils (%) (Auto) 1 % (0-3) Neutrophils # (Auto) 5.4 x10^3/uL (1.8-7.7) Lymphocytes # (Auto) 1.1 x10^3/uL (1.0-4.8) Monocytes # (Auto) 0.5 x10^3/uL (0.0-1.1) Eosinophils # (Auto) 0.1 x10^3/uL (0.0-0.7) Basophils # (Auto) 0.1 x10^3/uL (0.0-0.2) Platelet Estimate Adequate (ADEQUATE) Polychromasia Slight Hypochromasia Slight Anisocytosis Mod Prothrombin Time 24.8 SEC (11.7-14.0) H Prothrombin Time INR 2.3 (0.8-1.1) H Activated Partial Thromboplast Time 26 SEC (24-38) D-Dimer (Elsy) 1.13 ug/mlFEU (0.00-0.50) H Sodium Level 137 mmol/L (136-145) Potassium Level 4.5 mmol/L (3.5-5.1) Chloride Level 105 mmol/L (98-107) Carbon Dioxide Level 23 mmol/L (21-32) Anion Gap 9 (6-14) Blood Urea Nitrogen 23 mg/dL (7-20) H Creatinine 2.1 mg/dL (0.6-1.0) H Estimated GFR (Cockcroft-Gault) 23.2 BUN/Creatinine Ratio 11 (6-20) Glucose Level 191 mg/dL (70-99) H Lactic Acid Level 1.1 mmol/L (0.4-2.0) Calcium Level 8.4 mg/dL (8.5-10.1) L Magnesium Level 1.9 mg/dL (1.8-2.4) Total Bilirubin 0.5 mg/dL (0.2-1.0) Aspartate Amino Transferase (AST) 26 U/L (15-37) Alanine Aminotransferase (ALT) 37 U/L (14-59) Alkaline Phosphatase 68 U/L (46-116) HH-Plf-P-Type Natriuretic Peptide 1051 pg/mL (0-124) H Total Protein 6.6 g/dL (6.4-8.2) Albumin 3.1 g/dL (3.4-5.0) L Albumin/Globulin Ratio 0.9 (1.0-1.7) L Glucose (Fingerstick) 142 mg/dL (70-99) H Laboratory Tests 03/31/20 21:00 Laboratory Tests 03/31/20 21:00 ECHOCARDIOGRAM ECHOCARDIOGRAM <Conclusion> Left ventricle systolic function is severely. The Ejection Fraction is 20-25%. There is moderate to severe global hypokinesis. There is a device lead in the right ventricle. Doppler and Color Flow revealed mild tricuspid regurgitation. The PA pressure was estimated at 35-40 mmHg. DATE: 09/30/19 0858 HEART CATH HEART CATH FINDINGS 1. Hemodynamics: Left ventricle end-diastolic pressure 10 mmHg. No pullback gradient across the aortic valve. 2. Left ventriculography: Moderate to severe left ventricle systolic dysfuncti on with ejection fraction estimated at 25-30%. No significant mitral regurgitation seen. 3. Coronary angiography: a. The left main coronary artery arose from the left sinus of Valsalva, gave rise to the left anterior descending and left circumflex arteries and did not show any significant stenosis. b. The left anterior descending artery showed widely patent stent in the proximal to midsegment. The first diagonal branch which is a small-caliber vessel showed 80% proximal segment stenosis. c. The left circumflex artery did not show any significant stenosis. d. The right coronary artery was a large and dominant vessel arising from the right sinus of Valsalva that did not show any significant stenosis. Conclusion 1. Widely patent previously placed stent in left anterior descending artery and 80% stenosis in small-caliber diagonal branch (described in prior cardiac catheterization) without any other significant stenosis. 2. Moderate to severe left ventricle systolic dysfunction with ejection fraction estimated at 25-30% Recommendations Medical Therapy DATE: 10/22/18 1500 ASSESSMENT/PLAN ASSESSMENT/PLAN 1. Acute on chronic respiratory failure with hx of prior PE, CHF and renal failure. 2. Acute on chronic combined systolic/diastolic CHF: SOA with improvement 2. CAD: Clinically stable 3. 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 recent EF at 20-25% 4. Chronic anticoagulation: on coumadin INR at 2.3 5. H/o VT with ICD discharge. On Amiodarone for rhythm maintenance No ILD from recent imaging 6. DM2/HLP: Continue current treatment 7. PAD: s/p percutaneous revascularization. stable, no claudications 8. MAURILIO on CKD3; possibly cardiorenal with associated use of entresto and prior large dosing of lasix. 9. HTN: controlled 10. H/o PE s/p IVC filter. This was removed 02/18/20 12. s/p AICD ([place] A) 13. PUI: Ciovid PCR pending Recommendations Hold entresto. CXR, EKG, troponin, BMP and Mg. Lasix therapy Secondary prevention measures Continue coumadin therapy Continue Amiodarone therapy for VT suppression CATIE LÓPEZ MD 04/01/202011: CARDIAC CONSULT ASSESSMENT/PLAN ASSESSMENT/PLAN Patient seen and examined. Agree with METAL CUT OFF SAW TENDER's assessment and plan. Acute on chr systolic HF better compensated PAF in SR, continue amiodarone for AF/VT suppression and coumadin for stroke prophylaxis and h/o PE CAD/PAD status clinically stable COVID test results pending Thank you for your consultation PEDRO COLÓN APRN Apr 01, 2020 11:41 CATIE LÓPEZ MD Apr 01, 2020 20:12
[2020-04-01 12:13] LABS: CALCIUM 8.6 mg/dL (8.5-10.1); CREATININE 1.6 mg/dL (0.6-1.0); GFR 31.7; POTASSIUM 4.5 mmol/L (3.5-5.1)
--- NOTE | 2020-04-01 12:24 | HP ---
ADMIT DATE: 03/31/2020 CHIEF COMPLAINT: Shortness of breath. HISTORY OF PRESENT ILLNESS: The patient is a pleasant 70-year-old female who has COPD, but states her shortness of breath has gotten worse over the past couple of weeks, rates it at 9/10. She tried increasing her home meds, but that did not help. While in the ER, she was noted to be hypoxic and she has required increased oxygen. She also has abnormalities with her lab with a hemoglobin of 10.7 and a BUN and creatinine of 23 and 2.1. Her chest x-ray showing possible vascular congestion versus infection. I have discussed the case with the ER physician. We are going to admit the patient and rule out COVID-19. PAST MEDICAL HISTORY: COPD, breast cancer, diabetes, hypertension, hyperlipidemia, hypothyroidism, myocardial infarction, cholecystectomy, hysterectomy, pacemaker, tonsillectomy, cardiac stents, left mastectomy, IVC filter with removal. ALLERGIES: None. FAMILY HISTORY: Hypertension. SOCIAL HISTORY: She quit smoking, no drinking or drugs. MEDICATIONS: Reviewed, please refer to the MRAD. REVIEW OF SYSTEMS: GENERAL: No history of weight change, weakness or fevers. SKIN: No bruising, hair changes or rashes. EYES: No blurred, double or loss of vision. NOSE AND THROAT: No history of nosebleeds, hoarseness or sore throat. HEART: No history of palpitations, chest pain or shortness of breath on exertion. LUNGS: She complains of shortness of breath. GASTROINTESTINAL: Denies changes in appetite, nausea, vomiting, diarrhea or constipation. GENITOURINARY: No history of frequency, urgency, hesitancy or nocturia. NEUROLOGIC: Denies history of numbness, tingling, tremor or weakness. PSYCHIATRIC: No history of panic, anxiety or depression. ENDOCRINE: No history of heat or cold intolerance, polyuria or polydipsia. EXTREMITIES: Denies muscle weakness, joint pain, pain on walking or stiffness. PHYSICAL EXAMINATION: VITALS: Within normal limits and are stable. GENERAL: No apparent distress. Alert and oriented. HEENT: Normal cephalic atraumatic, external auditory canals are patent EYES: Extraocular muscles are intact, pupils are equally round and reactive to light and accommodation MUSCULOSKELETAL: Well developed, well nourished, good range of motion ENDOCRINE: No thyromegaly was palpated LYMPHATICS: No cervical chain or axillary nodes were noted HEMATOPOIETIC: No bruising NECK: Supple, no JVD, no thyromegaly was noted. LUNGS: She has decreased breath sounds. HEART: RRR, S1, S2 present. Peripheral pulses intact, no obvious murmurs were noted. ABDOMEN: Soft, nontender. Positive bowel sounds no organomegaly, normal bowel sounds. EXTREMITIES: Without any cyanosis, clubbing, or edema. Pedal pulses intact, Homans sign is negative. NEUROLOGIC: Normal speech, normal tone. A & O x3, moves all extremities, no obvious focal deficits. PSYCHIATRIC: Normal affect, normal mood. Stable. SKIN: No ulcerations or rashes, good skin turgor, no jaundice. VASCULAR: Good capillary refill, neurovascular bundle appears to be intact. DIAGNOSTIC DATA: Chest x-ray; I reviewed it myself. She has got vascular congestion and mild bilateral pleural effusions. She also has a permanent pacemaker. Further official reading by the radiologist is pending. ASSESSMENT AND PLAN: Respiratory failure, abnormal chest x-ray, anemia, azotemia. The patient has been admitted. We are going to rule out COVID-19. Continue home meds, DVT prophylaxis. Full code. Consult Dr. Mai, consult Dr. Bro. Long-term prognosis is guarded. LAVELLE PETERSON DO DR: PREETHI/kenneth JOB#: [id number] / [id number]
--- NOTE | 2020-04-01 12:31 | RAD ---
Single AP view of the chest. Comparison: 03/02/2020. Indication: CHF Findings: Right clavian pacemaker is unchanged. The heart is enlarged but stable. There are small bibasilar left greater than right effusions. There is persistent interstitial opacity in the right lung base. Impression: 1. Persistent right interstitial opacity in the lung base. Additionally there are new bilateral left greater than right pleural effusions. Electronically signed by: Ephraim Herman MD (04/01/2020 12:28 PM) [id number]
--- NOTE | 2020-04-01 13:45 | EKG ---
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
[2020-04-01] MEDS: FUROSEMIDE 40 MG/4 ML VIAL. IVP SCH (14:06)
[2020-04-01 15:00] VITALS: BP 142/71
--- NOTE | 2020-04-01 17:25 | NUR ---
SW following. Spoke with RN and reviewed chart. Pt from home. Pt on 3 02. SW attempted to call into pt's room to coordinate are. Pt COVID pending. SW to follow.
[2020-04-01 19:00] VITALS: BP 144/78
[2020-04-01] MEDS: MONTELUKAST SODIUM 10 MG TABLET. PO SCH (21:09)
[2020-04-01] MEDS: ATORVASTATIN CALCIUM 40 MG TABLET. PO SCH (21:09)
[2020-04-01] MEDS: INSULIN GLARGINE SYRINGE. SQ SCH (21:46)
[2020-04-01] MEDS: WARFARIN 3 MG TABLET. PO SCH (22:21)
[2020-04-01 23:00] VITALS: BP 133/63
[2020-04-02 03:00] VITALS: BP_SYST 136; BP_DIAS 73; BP_DIAS 74
[2020-04-02] MEDS: LEVOTHYROXINE 100 MCG TABLET PO SCH (04:55)
[2020-04-02 08:00] VITALS: BP 140/76
[2020-04-02] MEDS: INSULIN LISPRO 300 UNITS/3 ML VIAL. SQ SCH ×3 (08:00→17:00)
[2020-04-02] MEDS: FENOFIBRATE,MICRONIZED 134 MG CAPSULE PO SCH (09:00)
[2020-04-02] MEDS: CITALOPRAM 20 MG TABLET. PO SCH (09:01)
[2020-04-02] MEDS: POTASSIUM CHLORIDE 20 MEQ TABLET.ER. PO SCH (09:01)
[2020-04-02] MEDS: PANTOPRAZOLE 40 MG TABLET.DR. PO SCH ×2 (09:01→15:57)
[2020-04-02] MEDS: AMIODARONE HCL 200 MG TABLET. PO SCH (09:01)
[2020-04-02] MEDS: ASPIRIN CHEWABLE 81 MG TABLET. PO SCH (09:02)
[2020-04-02] MEDS: ASCORBIC ACID 500 MG TABLET PO SCH (09:02)
[2020-04-02] MEDS: DOCUSATE SODIUM 100 MG CAPSULE. PO SCH ×2 (09:02→20:29)
[2020-04-02] MEDS: FERROUS SULFATE 325 MG TABLET. PO SCH ×4 (09:02→20:29)
[2020-04-02] MEDS: GABAPENTIN 100 MG CAPSULE. PO SCH ×2 (09:02→20:29)
[2020-04-02] MEDS: FUROSEMIDE 40 MG/4 ML VIAL. IVP SCH ×2 (09:08→14:27)
--- NOTE | 2020-04-02 10:20 | NUR ---
SW following. Reviewed chart and coordinated care with CM. Pt from home with 3l 02. Pt on oral medications. SW added pt to potential weekend discharge list. Pt to discharge via transport home with dtr who can bring 02 tank to the hospital. Coordinated care with DAMON Crawford. No further SW needs at this time.
[2020-04-02 10:36] VITALS: BP 122/38
--- NOTE | 2020-04-02 10:43 | PDOC ---
PULMONARY PROGRESS NOTES Subjective Remains on 3 liters N/C which is baseline oxygen requirements Denies SOA or increased cough Vitals Vital Signs Date Time Temp Pulse Resp B/P (MAP) Pulse Ox O2 Delivery O2 Flow Rate FiO2 04/02/20 09:01 89 140/76 04/02/20 08:00 97.8 20 97 Nasal Cannula 3.0 97.8 ROS: No Nausea, No Chest Pain, No Abdominal Pain, No Increase Cough General: Alert, Oriented X4, No acute distress Lungs: Clear Cardiovascular: S1, S2 Abdomen: Soft, Other Extremities: Other (edema +1 BLE ) Labs Laboratory Tests Test 03/31/20 21:00 03/31/20 21:05 04/01/20 07:41 04/01/20 11:38 White Blood Count 7.2 x10^3/uL (4.0-11.0) Red Blood Count 4.55 x10^6/uL (3.50-5.40) Hemoglobin 10.7 g/dL (12.0-15.5) Hematocrit 35.3 % (36.0-47.0) Mean Corpuscular Volume 78 fL (79-100) Mean Corpuscular Hemoglobin 24 pg (25-35) Mean Corpuscular Hemoglobin Concent 30 g/dL (31-37) Red Cell Distribution Width 20.5 % (11.5-14.5) Platelet Count 155 x10^3/uL (140-400) Neutrophils (%) (Auto) 76 % (31-73) Lymphocytes (%) (Auto) 15 % (24-48) Monocytes (%) (Auto) 7 % (0-9) Eosinophils (%) (Auto) 1 % (0-3) Basophils (%) (Auto) 1 % (0-3) Neutrophils # (Auto) 5.4 x10^3/uL (1.8-7.7) Lymphocytes # (Auto) 1.1 x10^3/uL (1.0-4.8) Monocytes # (Auto) 0.5 x10^3/uL (0.0-1.1) Eosinophils # (Auto) 0.1 x10^3/uL (0.0-0.7) Basophils # (Auto) 0.1 x10^3/uL (0.0-0.2) Platelet Estimate Adequate (ADEQUATE) Polychromasia Slight Hypochromasia Slight Anisocytosis Mod Prothrombin Time 24.8 SEC (11.7-14.0) Prothromb Time International Ratio 2.3 (0.8-1.1) Activated Partial Thromboplast Time 26 SEC (24-38) D-Dimer (Elsy) 1.13 ug/mlFEU (0.00-0.50) Sodium Level 137 mmol/L (136-145) 137 mmol/L (136-145) Potassium Level 4.5 mmol/L (3.5-5.1) 4.5 mmol/L (3.5-5.1) Chloride Level 105 mmol/L (98-107) 102 mmol/L (98-107) Carbon Dioxide Level 23 mmol/L (21-32) 28 mmol/L (21-32) Anion Gap 9 (6-14) 7 (6-14) Blood Urea Nitrogen 23 mg/dL (7-20) 26 mg/dL (7-20) Creatinine 2.1 mg/dL (0.6-1.0) 1.6 mg/dL (0.6-1.0) Estimated GFR (Cockcroft-Gault) 23.2 31.7 BUN/Creatinine Ratio 11 (6-20) Glucose Level 191 mg/dL (70-99) 173 mg/dL (70-99) Lactic Acid Level 1.1 mmol/L (0.4-2.0) Calcium Level 8.4 mg/dL (8.5-10.1) 8.6 mg/dL (8.5-10.1) Magnesium Level 1.9 mg/dL (1.8-2.4) 2.0 mg/dL (1.8-2.4) Total Bilirubin 0.5 mg/dL (0.2-1.0) Aspartate Amino Transf (AST/SGOT) 26 U/L (15-37) Alanine Aminotransferase (ALT/SGPT) 37 U/L (14-59) Alkaline Phosphatase 68 U/L (46-116) DI-Err-H-Type Natriuretic Peptide 1051 pg/mL (0-124) Total Protein 6.6 g/dL (6.4-8.2) Albumin 3.1 g/dL (3.4-5.0) Albumin/Globulin Ratio 0.9 (1.0-1.7) Coronavirus (PCR) Not detected (Not Detected) Glucose (Fingerstick) 142 mg/dL (70-99) Test 04/01/20 11:45 04/01/20 12:12 04/01/20 16:33 04/01/20 21:32 Troponin I Quantitative < 0.017 ng/mL (0.000-0.055) Glucose (Fingerstick) 132 mg/dL (70-99) 115 mg/dL (70-99) 85 mg/dL (70-99) Test 04/02/20 09:04 Glucose (Fingerstick) 153 mg/dL (70-99) Laboratory Tests Test 04/01/20 11:38 04/01/20 11:45 04/01/20 12:12 04/01/20 16:33 Sodium Level 137 mmol/L (136-145) Potassium Level 4.5 mmol/L (3.5-5.1) Chloride Level 102 mmol/L (98-107) Carbon Dioxide Level 28 mmol/L (21-32) Anion Gap 7 (6-14) Blood Urea Nitrogen 26 mg/dL (-20) Creatinine 1.6 mg/dL (0.6-1.0) Estimated GFR (Cockcroft-Gault) 31.7 Glucose Level 173 mg/dL (70-99) Calcium Level 8.6 mg/dL (8.5-10.1) Magnesium Level 2.0 mg/dL (1.8-2.4) Troponin I Quantitative < 0.017 ng/mL (0.000-0.055) Glucose (Fingerstick) 132 mg/dL (70-99) 115 mg/dL (70-99) Test 04/01/20 21:32 04/02/20 09:04 Glucose (Fingerstick) 85 mg/dL (70-99) 153 mg/dL (70-99) Medications Active Scripts Medications Dose Route/Sig Max Daily Dose Days Date Category Warfarin Sodium 3 Mg Tablet 3 Mg PO 1X 04/01/20 Reported Lasix (Furosemide) 20 Mg Tablet 1 Tab PO DAILY 04/01/20 Reported Warfarin Sodium 3 Mg Tablet 1 Tab PO DAILY 04/01/20 Reported Coumadin (Warfarin Sodium) 2.5 Mg Tablet 1 Each MC 1X WARF 03/02/20 Rx Vitamin C (Ascorbic Acid) 500 Mg Tablet 500 Mg PO DAILY 03/02/20 Rx Culturelle (Lactobacillus Rhamnosus Gg) 1 Each Cap.sprink 1 Cap PO BID 30 03/02/20 Rx Pantoprazole Sodium (Pantoprazole Sodium) 40 Mg Tablet.dr 40 Mg PO BIDAC 30 03/02/20 Rx Guaifenesin Dm Syrup (Guaifenesin/Dextromethorphan) 5 Ml Syrup 10 Ml PO PRN Q6HRS PRN 14 03/02/20 Rx Furosemide 40 Mg Tablet 40 Mg PO BID92 30 03/02/20 Rx Klor-Con M20 (Potassium Chloride) 20 Meq Tab.er.prt 20 Meq PO DAILYWBKFT 10 03/02/20 Rx Isosorbide Mononitrate Er (Isosorbide Mononitrate) 30 Mg Tab.er.24h 30 Mg PO DAILY 30 03/02/20 Rx Feosol (Ferrous Sulfate) 325 Mg Tablet 325 Mg PO TIDWMEALHC 30 03/02/20 Rx Augmentin 875-125 Tablet (Amoxicillin/Potassium Clav) 1 Each Tablet 1 Tab PO BID 7 03/02/20 Rx Entresto 97 mg-103 mg Tablet (Sacubitril/Valsartan) 1 Each Tablet 0.5 Each PO DAILY 02/18/20 Reported Aspirin 81 Mg Tab.chew 81 Mg PO DAILY 02/18/20 Reported Citalopram Hbr (Citalopram Hydrobromide) 20 Mg Tablet 1 Tab PO DAILY08 12/23/19 Reported Hydrocodone-Apap 7.5-325 (Hydrocodone Bit/Acetaminophen) 1 Tab Tablet 1 Tab PO Q4HRS PRN 12/23/19 Reported Amiodarone Hcl 200 Mg Tablet 1 Tab PO DAILY 12/23/19 Reported Colace (Docusate Sodium) 100 Mg Capsule 1 Cap PO BID 30 10/14/19 Rx Alprazolam 0.25 Mg Tablet 1 Tab PO BID PRN 10/02/19 Rx Montelukast Sodium Tablet (Montelukast Sodium) 10 Mg Tablet 10 Mg PO HS 11/30/17 Reported Levothyroxine Sodium 100 Mcg Tablet 1 Tab PO DAILY 05/26/16 Reported Proair Hfa Inhaler (Albuterol Sulfate) 8.5 Gm Hfa.aer.ad 2 Puff IH PRN Q4-6HRS 05/20/15 Reported Tylenol (Acetaminophen) 325 Mg Tablet 650 Mg PO 05/14/15 Reported Fenofibrate (Fenofibrate Nanocrystallized) 145 Mg Tablet 1 Tab PO DAILY 05/14/15 Reported Humalog (Insulin Lispro) 100 Unit/1 Ml Vial 15 Unit SQ TID 04/08/14 Reported Lantus Solostar (Insulin Glargine,Hum.rec.anlog) 100 Unit/1 Ml Insuln.pen 30 Unit SQ HS 04/08/14 Reported Pantoprazole Sodium (Pantoprazole Sodium) 40 Mg Tablet.dr 40 Mg PO DAILY 04/08/14 Reported Atorvastatin Calcium 40 Mg Tablet 40 Mg PO HS 04/08/14 Reported Gabapentin (Gabapentin) 100 Mg Capsule 100 Mg PO BID 04/08/14 Reported Comments CXR 04/01 1. Persistent right interstitial opacity in the lung base. Additionally there are new bilateral left greater than right pleural effusions. Impression . IMPRESSION: 1. Dyspnea with exertion for the last few days, likely related to acute on chronic systolic heart failure. The patient has history of pulmonary embolism and has been on Coumadin with therapeutic INR and clinically low suspicion for any recurrent thromboembolic disease. 2. The patient with history of pulmonary embolism in 2019, which was appropriately treated and once it was resolved she was taken off of anticoagulation. She also had an IVC filter, which was subsequently removed as well. 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 Her INR is therapeutic. 3. No significant tobacco history. 4. History of coronary artery disease with stents and ejection fraction of 20-25%. 5. Morbid obesity. 6. Chronic kidney disease. Plan . RECOMMENDATIONS: 1. Continue with present oxygen at 3 liters. 2. Continue diuresis, keeping an eye on her renal function. 3. Follow cardiology recs 4. Continue with Coumadin. INR is therapeutic. We will keep the INR between 2 and 3. 5. Continue CPAP at [facility] and with day time napping D/W WONG ZHANG MD Apr 02, 2020 10:43
--- NOTE | 2020-04-02 11:20 | PDOC ---
[facility] PROGRESS NOTE Chief Complaint Chief Complaint Dyspnea on exertion COPD DM Anemia CKD HLD HTN CAD s/p stenting Hypothyroidism History of Present Illness History of Present Illness 04/02/2020 Patient seen and examined Sitting up in bed in NAD Chart reviewed Discussed with RN Vitals/I&O Vitals/I&O: Vital Signs Date Time Temp Pulse Resp B/P (MAP) Pulse Ox O2 Delivery O2 Flow Rate FiO2 04/02/20 10:36 97.6 81 16 122/38 (66) 98 Nasal Cannula 3.0 97.6 I & O 04/01/20 04/01/20 04/02/20 15:00 23:00 07:00 Intake Total 360 ml 1020 ml 540 ml Output Total 400 ml 1000 ml Balance -40 ml 20 ml 540 ml Physical Exam Physical Exam: GENERAL: No apparent distress. Alert and oriented. HEENT: Normal cephalic atraumatic, external auditory canals are patent EYES: Extraocular muscles are intact, pupils are equally round and reactive MUSCULOSKELETAL: Well developed, well nourished, good range of motion ENDOCRINE: No thyromegaly noted LYMPHATICS: No cervical chain or axillary nodes were noted HEMATOPOIETIC: No bruising NECK: Supple, no JVD, no thyromegaly was noted. LUNGS: She has decreased breath sounds. HEART: RRR, S1, S2 present. Peripheral pulses intact, no obvious murmurs were noted. ABDOMEN: Soft, nontender. EXTREMITIES: Without any cyanosis, clubbing, or edema. NEUROLOGIC: Normal speech, normal tone. A & O x3, moves all extremities, no obvious focal deficits. PSYCHIATRIC: Normal affect, normal mood. Stable. SKIN: No ulcerations or rashes, good skin turgor, no jaundice. VASCULAR: Good capillary refill, neurovascular bundle appears to be intact. General: Alert, Oriented X3, Cooperative, No acute distress Heart: Regular rate (SR), Normal S1, Normal S2, Other (S4) Lungs: Clear Abdomen: No tenderness, Other (obese) Extremities: No cyanosis, Other (trace LE edema) Skin: No breakdown, No significant lesion Labs Labs: Laboratory Tests Test 04/01/20 11:38 04/01/20 11:45 04/01/20 12:12 04/01/20 16:33 Sodium Level 137 mmol/L (136-145) Potassium Level 4.5 mmol/L (3.5-5.1) Chloride Level 102 mmol/L (98-107) Carbon Dioxide Level 28 mmol/L (21-32) Anion Gap 7 (6-14) Blood Urea Nitrogen 26 mg/dL (7-20) Creatinine 1.6 mg/dL (0.6-1.0) Estimated GFR (Cockcroft-Gault) 31.7 Glucose Level 173 mg/dL (70-99) Calcium Level 8.6 mg/dL (8.5-10.1) Magnesium Level 2.0 mg/dL (1.8-2.4) Troponin I Quantitative < 0.017 ng/mL (0.000-0.055) Glucose (Fingerstick) 132 mg/dL (70-99) 115 mg/dL (70-99) Test 04/01/20 21:32 04/02/20 09:04 Glucose (Fingerstick) 85 mg/dL (70-99) 153 mg/dL (70-99) Review of Systems Review of Systems: Pertinent as per HPI, otherwise 10 point review of systems is negative Assessment and Plan Assessmemt and Plan Problems Medical Problems: (1) Dyspnea on exertion Status: Acute (2) Elevated brain natriuretic peptide (BNP) level Status: Acute (3) Person under investigation for COVID-19 Status: Acute ASSESSMENT Dyspnea on exertion COPD CHF DM Anemia CKD HLD HTN CAD s/p stenting Hypothyroidism PLAN Continue current care Cardiac monitoring Supplemental O2 PT/OT Appreciate subspecialist input DVT prophylaxis 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 Medications: Current Medications Medications (Trade) Dose Ordered Sig/Lester Route PRN Reason Start Time Stop Time Status Last Admin Dose Admin Atorvastatin Calcium (Lipitor) 40 mg HS PO 04/01/20 21:00 04/01/20 21:09 Montelukast Sodium (Singulair) 10 mg HS PO 04/01/20 21:00 04/01/20 21:09 Insulin Glargine (Lantus Syringe) 30 unit QHS SQ 04/01/20 21:00 04/01/20 21:46 Furosemide (Lasix) 40 mg BID92 IVP 04/01/20 14:00 04/02/20 09:08 Warfarin Sodium (Coumadin) 3 mg DAILY16 PO 7/30/20 23:00 04/01/20 22:21 Warfarin Sodium (Coumadin Per Physician) 1 each PRN DAILY PRN MC SEE COMMENTS 04/01/20 22:00 04/02/20 00:09 Justicifation of Admission Dx: Justifications for Admission: Justification of Admission Dx: Yes LAVELLE PETERSON III DO Apr 02, 2020 11:20
--- NOTE | 2020-04-02 13:12 | PDOC ---
PEDRO COLÓN AGRICULTURAL TECHNICIAN 04/02/20 1312: CARDIO Progress Notes Date and Time Date of Service 04/02/2020 Time of Evaluation 1120 Subjective Subjective: No Chest Pain, No Palpitations, Other (SOA better) Vitals Vitals Vital Signs Date Time Temp Pulse Resp B/P (MAP) Pulse Ox O2 Delivery O2 Flow Rate FiO2 04/02/20 10:36 97.6 81 16 122/38 (66) 98 Nasal Cannula 3.0 97.6 Weight Weight [ ] Input and Output Intake and Output Intake and Output 04/02/20 07:00 Intake Total 1920 ml Output Total 1400 ml Balance 520 ml Intake Oral 1920 ml Output Urine Total 1400 ml Laboratory Labs Laboratory Tests Test 04/01/20 16:33 04/01/20 21:32 04/02/20 09:04 04/02/20 12:24 Glucose (Fingerstick) 115 mg/dL (70-99) 85 mg/dL (70-99) 153 mg/dL (70-99) 234 mg/dL (70-99) Physical Exam HEENT: Neck Supple W Full Motion Chest: Symmetric LUNGS: Other (basilar crackles) Heart: RRR (SR) Abdomen: Soft N/T Extremities: No Calf Tenderness, Other (1+ bilateral Le pitting edema) Neurology: alert, oriented, follow commands Assessment Assessment 1. Acute on chronic respiratory failure with hx of prior PE, CHF and renal failure. negative for covid 2. Acute on chronic combined systolic/diastolic CHF: better 2. CAD: Clinically stable 3. 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 recent EF at 20-25% 4. Chronic anticoagulation: on coumadin INR at 2.3 5. H/o VT with ICD discharge. On Amiodarone for rhythm maintenance No ILD from recent imaging 6. DM2/HLP: Continue current treatment 7. PAD: s/p percutaneous revascularization. stable, no claudications 8. MAURILIO on CKD3; possibly cardiorenal with associated use of entresto and prior large dosing of lasix. 9. HTN: controlled 10. H/o PE s/p IVC filter. This was removed 02/18/20 12. s/p AICD ([facility] A) Recommendations BMP and Mg. Lasix therapy. If Cr is stable then may restart low dose home entresto prior to DC. Secondary prevention measures Continue coumadin therapy Continue Amiodarone therapy for VT suppression Interrogate device today. anticipate DC tomorrow. Justicifation of Admission Dx: Justifications for Admission: Justification of Admission Dx: Yes CATIE LÓPEZ MD 04/02/20 0597: CARDIO Progress Notes Assessment Assessment Patient seen and examined. Agree with CHOCOLATE REFINING ROLLER's assessment and plan. Acute on chr systolic HF better compensated PAF in SR, continue amiodarone for AF/VT suppression and coumadin for stroke prophylaxis and h/o PE CAD/PAD status clinically stable COVID test negative Possible DC home tomorrow. Follow up with our office as scheduled, PEDRO COLÓN APRN Apr 02, 2020 13:12 CATIE LÓPEZ MD Apr 02, 2020 18:37
[2020-04-02 14:43] LABS: CALCIUM 8.3 mg/dL (8.5-10.1); CREATININE 1.6 mg/dL (0.6-1.0); GFR 31.7; POTASSIUM 4.4 mmol/L (3.5-5.1)
[2020-04-02 15:19] VITALS: BP 122/60
[2020-04-02] MEDS: WARFARIN 3 MG TABLET. PO SCH (15:57)
[2020-04-02 18:30] VITALS: BP 119/51
[2020-04-02] MEDS: MONTELUKAST SODIUM 10 MG TABLET. PO SCH (20:29)
[2020-04-02] MEDS: ATORVASTATIN CALCIUM 40 MG TABLET. PO SCH (20:29)
[2020-04-02] MEDS: INSULIN GLARGINE SYRINGE. SQ SCH (20:35)
[2020-04-02 23:00] VITALS: BP 118/59
[2020-04-03 03:00] VITALS: BP 127/62
[2020-04-03] MEDS: LEVOTHYROXINE 100 MCG TABLET PO SCH (05:12)
[2020-04-03 06:59] LABS: CALCIUM 8.6 mg/dL (8.5-10.1); CREATININE 1.6 mg/dL (0.6-1.0); GFR 31.7; POTASSIUM 4.2 mmol/L (3.5-5.1)
[2020-04-03 07:15] VITALS: BP 114/58
[2020-04-03 07:21] LABS: BASO % 0 % (0-3); EOS # 0.1 x10^3/uL (0.0-0.7); EOS % 2 % (0-3); HEMATOCRIT 34.4 % (36.0-47.0); HEMOGLOBIN 10.7 g/dL (12.0-15.5); LYMPH # 1.1 x10^3/uL (1.0-4.8); LYMPH % 17 % (24-48); MEAN CORPUSCULAR HEMOGLOBIN 23 pg (25-35); MEAN CORPUSCULAR HGB CONC 31 g/dL (31-37); MEAN CORPUSCULAR VOLUME 75 fL (79-100); MONO # 0.5 x10^3/uL (0.0-1.1); MONO % 8 % (0-9); NEUT # 4.8 x10^3/uL (1.8-7.7); NEUT % 73 % (31-73); PLATELET COUNT 250 x10^3/uL (140-400); RED BLOOD COUNT 4.58 x10^6/uL (3.50-5.40); RED CELL DISTRIBUTION WIDTH 20.2 % (11.5-14.5); WHITE BLOOD COUNT 6.6 x10^3/uL (4.0-11.0)
[2020-04-03] MEDS: PANTOPRAZOLE 40 MG TABLET.DR. PO SCH ×2 (07:40→16:54)
[2020-04-03] MEDS: INSULIN LISPRO 300 UNITS/3 ML VIAL. SQ SCH ×3 (08:00→17:25)
[2020-04-03] MEDS: ASCORBIC ACID 500 MG TABLET PO SCH (08:24)
[2020-04-03] MEDS: GABAPENTIN 100 MG CAPSULE. PO SCH ×2 (08:24→20:25)
[2020-04-03] MEDS: DOCUSATE SODIUM 100 MG CAPSULE. PO SCH ×2 (08:24→20:25)
[2020-04-03] MEDS: FENOFIBRATE,MICRONIZED 134 MG CAPSULE PO SCH (08:24)
[2020-04-03] MEDS: AMIODARONE HCL 200 MG TABLET. PO SCH (08:25)
[2020-04-03] MEDS: CITALOPRAM 20 MG TABLET. PO SCH (08:25)
[2020-04-03] MEDS: FUROSEMIDE 40 MG/4 ML VIAL. IVP SCH ×2 (08:25→14:59)
[2020-04-03] MEDS: FERROUS SULFATE 325 MG TABLET. PO SCH ×4 (08:25→20:25)
[2020-04-03] MEDS: POTASSIUM CHLORIDE 20 MEQ TABLET.ER. PO SCH (08:25)
[2020-04-03] MEDS: ASPIRIN CHEWABLE 81 MG TABLET. PO SCH (08:25)
--- NOTE | 2020-04-03 10:25 | PDOC ---
PULMONARY PROGRESS NOTES Subjective Remains on 3 liters N/C which is baseline oxygen requirements, doesnt use cpap sob better, has occ cough. feeling better Vitals Vital Signs Date Time Temp Pulse Resp B/P (MAP) Pulse Ox O2 Delivery O2 Flow Rate FiO2 04/03/20 08:25 87 114/58 04/03/20 07:51 Nasal Cannula 3.0 04/03/20 07:15 97.5 22 99 97.5 ROS: No Nausea, No Chest Pain, No Abdominal Pain, No Increase Cough General: Alert, Oriented X4, No acute distress Lungs: Clear Cardiovascular: S1, S2 Abdomen: Soft, Other Neuro Exam: Alert Extremities: Other (edema +1 BLE ) Skin: Warm Labs Laboratory Tests Test 04/01/20 11:38 04/01/20 11:45 04/01/20 12:12 04/01/20 16:33 Sodium Level 137 mmol/L (136-145) Potassium Level 4.5 mmol/L (3.5-5.1) Chloride Level 102 mmol/L (98-107) Carbon Dioxide Level 28 mmol/L (21-32) Anion Gap 7 (6-14) Blood Urea Nitrogen 26 mg/dL (-20) Creatinine 1.6 mg/dL (0.6-1.0) Estimated GFR (Cockcroft-Gault) 31.7 Glucose Level 173 mg/dL (70-99) Calcium Level 8.6 mg/dL (8.5-10.1) Magnesium Level 2.0 mg/dL (1.8-2.4) Troponin I Quantitative < 0.017 ng/mL (0.000-0.055) Glucose (Fingerstick) 132 mg/dL (70-99) 115 mg/dL (70-99) Test 04/01/20 21:32 04/02/20 09:04 04/02/20 12:24 04/02/20 14:05 Glucose (Fingerstick) 85 mg/dL (70-99) 153 mg/dL (70-99) 234 mg/dL (70-99) Sodium Level 138 mmol/L (136-145) Potassium Level 4.4 mmol/L (3.5-5.1) Chloride Level 103 mmol/L (98-107) Carbon Dioxide Level 32 mmol/L (21-32) Anion Gap 3 (6-14) Blood Urea Nitrogen 24 mg/dL (7-20) Creatinine 1.6 mg/dL (0.6-1.0) Estimated GFR (Cockcroft-Gault) 31.7 Glucose Level 120 mg/dL (70-99) Calcium Level 8.3 mg/dL (8.5-10.1) Magnesium Level 2.0 mg/dL (1.8-2.4) Test 04/02/20 16:33 04/02/20 20:29 04/03/20 06:07 04/03/20 07:26 Glucose (Fingerstick) 95 mg/dL (70-99) 150 mg/dL (70-99) 100 mg/dL (70-99) White Blood Count 6.6 x10^3/uL (4.0-11.0) Red Blood Count 4.58 x10^6/uL (3.50-5.40) Hemoglobin 10.7 g/dL (12.0-15.5) Hematocrit 34.4 % (36.0-47.0) Mean Corpuscular Volume 75 fL (79-100) Mean Corpuscular Hemoglobin 23 pg (25-35) Mean Corpuscular Hemoglobin Concent 31 g/dL (31-37) Red Cell Distribution Width 20.2 % (11.5-14.5) Platelet Count 250 x10^3/uL (140-400) Neutrophils (%) (Auto) 73 % (31-73) Lymphocytes (%) (Auto) 17 % (24-48) Monocytes (%) (Auto) 8 % (0-9) Eosinophils (%) (Auto) 2 % (0-3) Basophils (%) (Auto) 0 % (0-3) Neutrophils # (Auto) 4.8 x10^3/uL (1.8-7.7) Lymphocytes # (Auto) 1.1 x10^3/uL (1.0-4.8) Monocytes # (Auto) 0.5 x10^3/uL (0.0-1.1) Eosinophils # (Auto) 0.1 x10^3/uL (0.0-0.7) Basophils # (Auto) 0.0 x10^3/uL (0.0-0.2) Sodium Level 138 mmol/L (136-145) Potassium Level 4.2 mmol/L (3.5-5.1) Chloride Level 103 mmol/L (98-107) Carbon Dioxide Level 32 mmol/L (21-32) Anion Gap 3 (6-14) Blood Urea Nitrogen 25 mg/dL (7-20) Creatinine 1.6 mg/dL (0.6-1.0) Estimated GFR (Cockcroft-Gault) 31.7 Glucose Level 108 mg/dL (70-99) Calcium Level 8.6 mg/dL (8.5-10.1) Laboratory Tests Test 04/02/20 12:24 04/02/20 14:05 04/02/20 16:33 04/02/20 20:29 Glucose (Fingerstick) 234 mg/dL (70-99) 95 mg/dL (70-99) 150 mg/dL (70-99) Sodium Level 138 mmol/L (136-145) Potassium Level 4.4 mmol/L (3.5-5.1) Chloride Level 103 mmol/L (98-107) Carbon Dioxide Level 32 mmol/L (21-32) Anion Gap 3 (6-14) Blood Urea Nitrogen 24 mg/dL (7-20) Creatinine 1.6 mg/dL (0.6-1.0) Estimated GFR (Cockcroft-Gault) 31.7 Glucose Level 120 mg/dL (70-99) Calcium Level 8.3 mg/dL (8.5-10.1) Magnesium Level 2.0 mg/dL (1.8-2.4) Test 04/03/20 06:07 04/03/20 07:26 White Blood Count 6.6 x10^3/uL (4.0-11.0) Red Blood Count 4.58 x10^6/uL (3.50-5.40) Hemoglobin 10.7 g/dL (12.0-15.5) Hematocrit 34.4 % (36.0-47.0) Mean Corpuscular Volume 75 fL (79-100) Mean Corpuscular Hemoglobin 23 pg (25-35) Mean Corpuscular Hemoglobin Concent 31 g/dL (31-37) Red Cell Distribution Width 20.2 % (11.5-14.5) Platelet Count 250 x10^3/uL (140-400) Neutrophils (%) (Auto) 73 % (31-73) Lymphocytes (%) (Auto) 17 % (24-48) Monocytes (%) (Auto) 8 % (0-9) Eosinophils (%) (Auto) 2 % (0-3) Basophils (%) (Auto) 0 % (0-3) Neutrophils # (Auto) 4.8 x10^3/uL (1.8-7.7) Lymphocytes # (Auto) 1.1 x10^3/uL (1.0-4.8) Monocytes # (Auto) 0.5 x10^3/uL (0.0-1.1) Eosinophils # (Auto) 0.1 x10^3/uL (0.0-0.7) Basophils # (Auto) 0.0 x10^3/uL (0.0-0.2) Sodium Level 138 mmol/L (136-145) Potassium Level 4.2 mmol/L (3.5-5.1) Chloride Level 103 mmol/L (98-107) Carbon Dioxide Level 32 mmol/L (21-32) Anion Gap 3 (6-14) Blood Urea Nitrogen 25 mg/dL (7-20) Creatinine 1.6 mg/dL (0.6-1.0) Estimated GFR (Cockcroft-Gault) 31.7 Glucose Level 108 mg/dL (70-99) Calcium Level 8.6 mg/dL (8.5-10.1) Glucose (Fingerstick) 100 mg/dL (70-99) Medications Active Scripts Medications Dose Route/Sig Max Daily Dose Days Date Category Warfarin Sodium 3 Mg Tablet 3 Mg PO 1X 04/01/20 Reported Lasix (Furosemide) 20 Mg Tablet 1 Tab PO DAILY 04/01/20 Reported Warfarin Sodium 3 Mg Tablet 1 Tab PO DAILY 04/01/20 Reported Coumadin (Warfarin Sodium) 2.5 Mg Tablet 1 Each MC 1X WARF 03/02/20 Rx Vitamin C (Ascorbic Acid) 500 Mg Tablet 500 Mg PO DAILY 03/02/20 Rx Culturelle (Lactobacillus Rhamnosus Gg) 1 Each Cap.sprink 1 Cap PO BID 03/02/20 Rx Pantoprazole Sodium (Pantoprazole Sodium) 40 Mg Tablet.dr 40 Mg PO BIDAC 03/02/20 Rx Guaifenesin Dm Syrup (Guaifenesin/Dextromethorphan) 5 Ml Syrup 10 Ml PO PRN Q6HRS PRN 14 03/02/20 Rx Furosemide 40 Mg Tablet 40 Mg PO BID92 30 03/02/20 Rx Klor-Con M20 (Potassium Chloride) 20 Meq Tab.er.prt 20 Meq PO DAILYWBKFT 10 03/02/20 Rx Isosorbide Mononitrate Er (Isosorbide Mononitrate) 30 Mg Tab.er.24h 30 Mg PO DAILY 30 03/02/20 Rx Feosol (Ferrous Sulfate) 325 Mg Tablet 325 Mg PO TIDWMEALHC 30 03/02/20 Rx Augmentin 875-125 Tablet (Amoxicillin/Potassium Clav) 1 Each Tablet 1 Tab PO BID 7 03/02/20 Rx Entresto 97 mg-103 mg Tablet (Sacubitril/Valsartan) 1 Each Tablet 0.5 Each PO DAILY 02/18/20 Reported Aspirin 81 Mg Tab.chew 81 Mg PO DAILY 02/18/20 Reported Citalopram Hbr (Citalopram Hydrobromide) 20 Mg Tablet 1 Tab PO DAILY08 12/23/19 Reported Hydrocodone-Apap 7.5-325 (Hydrocodone Bit/Acetaminophen) 1 Tab Tablet 1 Tab PO Q4HRS PRN 12/23/19 Reported Amiodarone Hcl 200 Mg Tablet 1 Tab PO DAILY 12/23/19 Reported Colace (Docusate Sodium) 100 Mg Capsule 1 Cap PO BID 30 10/14/19 Rx Alprazolam 0.25 Mg Tablet 1 Tab PO BID PRN 10/02/19 Rx Montelukast Sodium Tablet (Montelukast Sodium) 10 Mg Tablet 10 Mg PO HS 11/30/17 Reported Levothyroxine Sodium 100 Mcg Tablet 1 Tab PO DAILY 05/26/16 Reported Proair Hfa Inhaler (Albuterol Sulfate) 8.5 Gm Hfa.aer.ad 2 Puff IH PRN Q4-6HRS 05/20/15 Reported Tylenol (Acetaminophen) 325 Mg Tablet 650 Mg PO 05/14/15 Reported Fenofibrate (Fenofibrate Nanocrystallized) 145 Mg Tablet 1 Tab PO DAILY 05/14/15 Reported Humalog (Insulin Lispro) 100 Unit/1 Ml Vial 15 Unit SQ TID 04/08/14 Reported Lantus Solostar (Insulin Glargine,Hum.rec.anlog) 100 Unit/1 Ml Insuln.pen 30 Unit SQ HS 04/08/14 Reported Pantoprazole Sodium (Pantoprazole Sodium) 40 Mg Tablet.dr 40 Mg PO DAILY 04/08/14 Reported Atorvastatin Calcium 40 Mg Tablet 40 Mg PO HS 04/08/14 Reported Gabapentin (Gabapentin) 100 Mg Capsule 100 Mg PO BID 04/08/14 Reported Comments CXR 04/01 1. Persistent right interstitial opacity in the lung base. Additionally there are new bilateral left greater than right pleural effusions. Impression . IMPRESSION: 1. Dyspnea with exertion for the last few days, likely related to acute on chronic systolic heart failure. The patient has history of pulmonary embolism and has been on Coumadin with therapeutic INR and clinically low suspicion for any recurrent thromboembolic disease. 2. The patient with history of pulmonary embolism in 2018, which was appropriately treated and once it was resolved she was taken off of anticoagulation. She also had an IVC filter, which was subsequently removed as well. 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 Her INR is therapeutic. 3. No significant tobacco history. 4. History of coronary artery disease with stents and ejection fraction of 20-25%. 5. Morbid obesity. prob leo 6. Chronic kidney disease. Plan . RECOMMENDATIONS: 1. Continue with present oxygen at 3 liters. 2. Continue diuresis, monitor renal function. 3. Follow cardiology recs 4. Continue with Coumadin. INR is therapeutic. We will keep the INR between 2 and 3. 5. psg out pt, doesnt have CPAP to use at home, is on 02 D/W RN, pt MARIO WOOD MD Apr 03, 2020 10:25
[2020-04-03 11:07] VITALS: BP 125/53
--- NOTE | 2020-04-03 11:26 | PDOC ---
[facility] PROGRESS NOTE Chief Complaint Chief Complaint Acute on chronic hypoxic respiratory failure due to acute on chronic systolic/diastolic CHF and severe COPD exacerbation CAD status post stenting Severe cardiomyopathy 4. Chronic anticoagulation: on coumadin INR at 2.3 5. H/o VT with ICD discharge. On Amiodarone for rhythm maintenance No ILD from recent imaging 7. PAD: s/p percutaneous revascularization. stable, no claudications H/o PE s/p IVC filter. This was removed 02/18/20 Acute on chronic renal failure due to possible Lasix use and Entresto; possible cardiorenal DM Anemia due to chronic kidney disease HTN Hypothyroidism INR in the a.m. Pending nephrology evaluation for CKD and IV iron infusions BMP and Mg. Lasix therapy. If Cr is stable then may restart low dose home entresto prior to DC. Secondary prevention measures Continue coumadin therapy Continue Amiodarone therapy for VT suppression Appreciate pulmonary recommendations, continue with oxygen 3 L and diuresis if renal function allows. Patient should have evaluation as an outpatient for CPAP at home Warfarin for DVT prophylaxis Protonix GI prophylaxis ADA/cardiac diet Full code Discussed with RN and SW Dispo pending nephrology evaluation Surrogate decision maker is self History of Present Illness History of Present Illness 04/03/2020 No acute events overnight. Patient endorses improved respiratory status. Currently on 3 L nasal cannula of O2. Patient's chart, labs, images were reviewed and discussed with RN 04/02/2020 Patient seen and examined Sitting up in bed in [facility] Chart reviewed Discussed with RN Vitals/I&O Vitals/I&O: Vital Signs Date Time Temp Pulse Resp B/P (MAP) Pulse Ox O2 Delivery O2 Flow Rate FiO2 04/03/20 11:07 96.5 85 19 125/53 (77) 100 Nasal Cannula 3.0 96.5 I & O 04/02/20 04/02/20 04/03/20 15:00 23:00 07:00 Intake Total 600 ml 520 ml 50 ml Output Total 900 ml 1700 ml 500 ml Balance -300 ml -1180 ml -450 ml Physical Exam Physical Exam: GENERAL: No apparent distress. Alert and oriented. HEENT: Normal cephalic atraumatic, external auditory canals are patent EYES: Extraocular muscles are intact, pupils are equally round and reactive MUSCULOSKELETAL: Well developed, well nourished, good range of motion ENDOCRINE: No thyromegaly noted LYMPHATICS: No cervical chain or axillary nodes were noted HEMATOPOIETIC: No bruising NECK: Supple, no JVD, no thyromegaly was noted. LUNGS: She has decreased breath sounds. HEART: RRR, S1, S2 present. Peripheral pulses intact, no obvious murmurs were noted. ABDOMEN: Soft, nontender. EXTREMITIES: Without any cyanosis, clubbing, or edema. NEUROLOGIC: Normal speech, normal tone. A & O x3, moves all extremities, no obvious focal deficits. PSYCHIATRIC: Normal affect, normal mood. Stable. SKIN: No ulcerations or rashes, good skin turgor, no jaundice. VASCULAR: Good capillary refill, neurovascular bundle appears to be intact. General: Alert, Oriented X3, Cooperative, No acute distress Heart: Regular rate (SR), Normal S1, Normal S2, Other (S4) Lungs: Clear Abdomen: No tenderness, Other (obese) Extremities: No cyanosis, Other (trace LE edema) Skin: No breakdown, No significant lesion Labs Labs: Laboratory Tests Test 04/02/20 12:24 04/02/20 14:05 04/02/20 16:33 04/02/20 20:29 Glucose (Fingerstick) 234 mg/dL (70-99) 95 mg/dL (70-99) 150 mg/dL (70-99) Sodium Level 138 mmol/L (136-145) Potassium Level 4.4 mmol/L (3.5-5.1) Chloride Level 103 mmol/L (98-107) Carbon Dioxide Level 32 mmol/L (21-32) Anion Gap 3 (6-14) Blood Urea Nitrogen 24 mg/dL (7-20) Creatinine 1.6 mg/dL (0.6-1.0) Estimated GFR (Cockcroft-Gault) 31.7 Glucose Level 120 mg/dL (70-99) Calcium Level 8.3 mg/dL (8.5-10.1) Magnesium Level 2.0 mg/dL (1.8-2.4) Test 04/03/20 06:07 04/03/20 07:26 White Blood Count 6.6 x10^3/uL (4.0-11.0) Red Blood Count 4.58 x10^6/uL (3.50-5.40) Hemoglobin 10.7 g/dL (12.0-15.5) Hematocrit 34.4 % (36.0-47.0) Mean Corpuscular Volume 75 fL (79-100) Mean Corpuscular Hemoglobin 23 pg (25-35) Mean Corpuscular Hemoglobin Concent 31 g/dL (31-37) Red Cell Distribution Width 20.2 % (11.5-14.5) Platelet Count 250 x10^3/uL (140-400) Neutrophils (%) (Auto) 73 % (31-73) Lymphocytes (%) (Auto) 17 % (24-48) Monocytes (%) (Auto) 8 % (0-9) Eosinophils (%) (Auto) 2 % (0-3) Basophils (%) (Auto) 0 % (0-3) Neutrophils # (Auto) 4.8 x10^3/uL (1.8-7.7) Lymphocytes # (Auto) 1.1 x10^3/uL (1.0-4.8) Monocytes # (Auto) 0.5 x10^3/uL (0.0-1.1) Eosinophils # (Auto) 0.1 x10^3/uL (0.0-0.7) Basophils # (Auto) 0.0 x10^3/uL (0.0-0.2) Sodium Level 138 mmol/L (136-145) Potassium Level 4.2 mmol/L (3.5-5.1) Chloride Level 103 mmol/L (98-107) Carbon Dioxide Level 32 mmol/L (21-32) Anion Gap 3 (6-14) Blood Urea Nitrogen 25 mg/dL (7-20) Creatinine 1.6 mg/dL (0.6-1.0) Estimated GFR (Cockcroft-Gault) 31.7 Glucose Level 108 mg/dL (70-99) Calcium Level 8.6 mg/dL (8.5-10.1) Glucose (Fingerstick) 100 mg/dL (70-99) Assessment and Plan Assessmemt and Plan Problems Medical Problems: (1) Dyspnea on exertion Status: Acute (2) Elevated brain natriuretic peptide (BNP) level Status: Acute (3) Person under investigation for COVID-19 Status: Acute Comment Review of Relevant I have reviewed the following items juliette (where applicable) has been applied. Justicifation of Admission Dx: Justifications for Admission: Justification of Admission Dx: Yes GIANNA BRENNAN MD Apr 03, 2020 11:26
--- NOTE | 2020-04-03 12:10 | PDOC2 ---
CONSULT Date of Consult Date of Consult DATE: 04/03/20 TIME: 12:01 History of Present Illness Reason for Visit: THIS IS A 70 YR OLD WITH SOB AND HX OF CM WITH EF OF 20-25%. CAME IN WITH DIZZINESS AND MORE SOB THAN BASELINE. HAS NEED FOR 3 L NC O2 AT BASELINE. SHE HAS MILD ACUTE ON CHRONIC SYSTOLIC CHF. CR OF 1.6 NOW IS AT HER BASELINE C/W STAGE 3 CKD. SHE HAS ANEMIA OF CKD AND IRON DEFICIENCY AND WAS SCHEDULED FOR OP IRON INFUSION NEXT WEEK. REQUESTING SHE GET IT NOW. NO OTHER HX. CKD IS DUE TO HTN RELATED END ORGAN DAMAGE Past Medical History Cardiovascular: CAD, CHF, HTN, Hyperlipidemia Pulmonary: Pneumonia CENTRAL NERVOUS SYSTEM: Carpal Tunnel Syndrome, Periperal neuropathy GI: Constipation, GERD Heme/Onc: Anemia NOS, Cancer Psych: Anxiety Infectious disease: No pertinent hx Renal/: Chronic renal insuff Endocrine: Diabetes, Hypothyroidism Past Surgical History Past Surgical History: Cholecystectomy, Mastectomy, Tubal Ligation, Tonsillec karly, Hysterectomy, Other Family History Family History: Heart Disease Social History No ALCOHOL: none Drugs: None Lives: Alone Domestic Violence: Neg Current Problem List Problem List Problems Medical Problems: (1) Dyspnea on exertion Status: Acute (2) Elevated brain natriuretic peptide (BNP) level Status: Acute (3) Person under investigation for COVID-19 Status: Acute Current Medications Current Medications Current Medications Alprazolam (Xanax) 0.25 mg PRN BID PRN PO ANXIETY / AGITATION; Start 04/01/20 at 07:00 Ascorbic Acid (Vitamin C) 500 mg DAILY PO Last administered on 04/03/20at 08:24; Start 04/01/20 at 09:00 Aspirin (Aspirin Chewable) 81 mg DAILY PO Last administered on 04/03/20at 08:25; Start 04/01/20 at 09:00 Atorvastatin Calcium (Lipitor) 40 mg HS PO Last administered on 04/02/20at 20:29; Start 04/01/20 at 21:00 Citalopram Hydrobromide (CeleXA) 20 mg DAILY08 PO Last administered on 04/03/20at 08:25; Start 04/01/20 at 08:00 Docusate Sodium (Colace) 100 mg BID PO Last administered on 04/03/20at 08:24; Start 04/01/20 at 09:00 Ferrous Sulfate (Feosol) 325 mg TIDWMEALHC PO Last administered on 04/03/20 08:25; Start 04/01/20 at 08:00 Gabapentin (Neurontin) 100 mg BID PO Last administered on 04/03/20 08:24; Start 04/01/20 at 09:00 Acetaminophen/ Hydrocodone Bitart (Lortab 7.5/325) 1 tab PRN Q4HRS PRN PO MODERATE PAIN 4-6; Start 04/01/20 at 07:00 Levothyroxine Sodium (Synthroid) 100 mcg DAILY06 PO Last administered on 04/03/20 05:12; Start 04/01/20 at 07:00 Montelukast Sodium (Singulair) 10 mg HS PO Last administered on 04/02/20 20:29; Start 04/01/20 at 21:00 Pantoprazole Sodium (Protonix) 40 mg BIDAC PO Last administered on 04/03/20 07:40; Start 04/01/20 at 07:30 Potassium Chloride (Klor-Con) 20 meq DAILYWBKFT PO Last administered on 04/03/20 08:25; Start 04/01/20 at 08:00 Fenofibrate (Lofibra) 134 mg DAILY PO Last administered on 04/03/20 08:24; Start 04/01/20 at 09:00 Sacubitril/ Valsartan (Entresto 49 Mg-51 Mg) 1 tab DAILY PO Last administered on 04/01/20 09:15; Start 04/01/20 at 09:00; Stop 04/01/20 at 11:41; Status DC Acetaminophen (Tylenol) 650 mg PRN Q6HRS PRN PO MILD PAIN 1-3 Last administered on 04/01/20 21:09; Start 04/01/20 at 07:15 Amiodarone HCl (Cordarone) 200 mg DAILY PO Last administered on 04/03/20 08:25; Start 04/01/20 at 09:00 Insulin Human Lispro (HumaLOG) 15 units TIDWMEALS SQ Last administered on 04/02/20 12:26; Start 04/01/20 at 08:00 Insulin Glargine (Lantus Syringe) 30 unit QHS SQ Last administered on 7/31/20at 20:35; Start 04/01/20 at 21:00 Furosemide (Lasix) 40 mg BID92 IVP Last administered on 04/03/20at 08:25; Start 04/01/20 at 14:00 Warfarin Sodium (Coumadin) 3 mg DAILY16 PO Last administered on 04/02/20at 15:57; Start 04/01/20 at 23:00 Warfarin Sodium (Coumadin Per Physician) 1 each PRN DAILY PRN MC SEE COMMENTS Last administered on 04/03/20at 09:12; Start 04/01/20 at 22:00 Active Scripts Active Coumadin (Warfarin Sodium) 2.5 Mg Tablet 1 Each MC 1X WARF 30 Days Vitamin C (Ascorbic Acid) 500 Mg Tablet 500 Mg PO DAILY 30 Days Culturelle (Lactobacillus Rhamnosus Gg) 1 Each Cap.sprink 1 Cap PO BID 30 Days Pantoprazole Sodium (Pantoprazole Sodium) 40 Mg Tablet.dr 40 Mg PO BIDAC 30 Days Guaifenesin Dm Syrup (Guaifenesin/Dextromethorphan) 5 Ml Syrup 10 Ml PO PRN Q6HRS PRN 14 Days Furosemide 40 Mg Tablet 40 Mg PO BID92 30 Days Klor-Con M20 (Potassium Chloride) 20 Meq Tab.er.prt 20 Meq PO DAILYWBKFT 10 Days Isosorbide Mononitrate Er (Isosorbide Mononitrate) 30 Mg Tab.er.24h 30 Mg PO DAILY 30 Days Feosol (Ferrous Sulfate) 325 Mg Tablet 325 Mg PO TIDWMEALHC 30 Days Augmentin 875-125 Tablet (Amoxicillin/Potassium Clav) 1 Each Tablet 1 Tab PO BID 7 Days Colace (Docusate Sodium) 100 Mg Capsule 1 Cap PO BID 30 Days Alprazolam 0.25 Mg Tablet 1 Tab PO BID PRN Reported Warfarin Sodium 3 Mg Tablet 3 Mg PO 1X Lasix (Furosemide) 20 Mg Tablet 1 Tab PO DAILY 30 Days Warfarin Sodium 3 Mg Tablet 1 Tab PO DAILY Entresto 97 mg-103 mg Tablet (Sacubitril/Valsartan) 1 Each Tablet 0.5 Each PO DAILY Aspirin 81 Mg Tab.chew 81 Mg PO DAILY Citalopram Hbr (Citalopram Hydrobromide) 20 Mg Tablet 1 Tab PO DAILY08 Hydrocodone-Apap 7.5-325 (Hydrocodone Bit/Acetaminophen) 1 Tab Tablet 1 Tab PO Q4HRS PRN Amiodarone Hcl 200 Mg Tablet 1 Tab PO DAILY Montelukast Sodium Tablet (Montelukast Sodium) 10 Mg Tablet 10 Mg PO HS Levothyroxine Sodium 100 Mcg Tablet 1 Tab PO DAILY Proair Hfa Inhaler (Albuterol Sulfate) 8.5 Gm Hfa.aer.ad 2 Puff IH PRN Q4-6HRS Tylenol (Acetaminophen) 325 Mg Tablet 650 Mg PO Fenofibrate (Fenofibrate Nanocrystallized) 145 Mg Tablet 1 Tab PO DAILY Humalog (Insulin Lispro) 100 Unit/1 Ml Vial 15 Unit SQ TID Lantus Solostar (Insulin Glargine,Hum.rec.anlog) 100 Unit/1 Ml Insuln.pen 30 Unit SQ HS Pantoprazole Sodium (Pantoprazole Sodium) 40 Mg Tablet.dr 40 Mg PO DAILY Atorvastatin Calcium 40 Mg Tablet 40 Mg PO HS Gabapentin (Gabapentin) 100 Mg Capsule 100 Mg PO BID Allergies Allergies: Coded Allergies: insulin glargine (Verified Allergy, Severe, "swelling", hospitalized [facility], 09/27/19) allergy is [facility] ONLY, takes LANTUS [place] ROS General: YES: Fatigue, Malaise, Appetite PSYCHOLOGICAL ROS: YES: Anxiety, Depression Eyes: Yes Decreased vision ALLERGY AND IMMUNOLOGY: YES: Seasonal Allergies Respiratory: YES: Cough, Orthopnea, Shortness of breath Gastrointestinal: Yes Constipation Genitourinary: YES Other (NOCTURIA) Musculoskeletal: Yes Muscular Weakness Neurological: Yes Weakness Skin: Yes Dry Skin Physical Exam General: Alert, Cooperative, No acute distress Lungs: Clear to auscultation, Normal air movement Heart: Regular rate Abdomen: Normal bowel sounds, Soft Extremities: No edema Skin: No breakdown Neuro: Normal speech Psych/Mental Status: Mental status NL, Mood NL MUSCULOSKELETAL: No joint tenderness, No deformity, No swelling Vitals VITALS Vital Signs Date Time Temp Pulse Resp B/P (MAP) Pulse Ox O2 Delivery O2 Flow Rate FiO2 04/03/20 11:07 96.5 85 19 125/53 (77) 100 Nasal Cannula 3.0 96.5 Labs Labs Laboratory Tests Test 04/01/20 12:12 04/01/20 16:33 04/01/20 21:32 04/02/20 09:04 Glucose (Fingerstick) 132 mg/dL (70-99) 115 mg/dL (70-99) 85 mg/dL (70-99) 153 mg/dL (70-99) Test 04/02/20 12:24 04/02/20 14:05 04/02/20 16:33 04/02/20 20:29 Glucose (Fingerstick) 234 mg/dL (70-99) 95 mg/dL (70-99) 150 mg/dL (70-99) Sodium Level 138 mmol/L (136-145) Potassium Level 4.4 mmol/L (3.5-5.1) Chloride Level 103 mmol/L (98-107) Carbon Dioxide Level 32 mmol/L (21-32) Anion Gap 3 (6-14) Blood Urea Nitrogen 24 mg/dL (-20) Creatinine 1.6 mg/dL (0.6-1.0) Estimated GFR (Cockcroft-Gault) 31.7 Glucose Level 120 mg/dL (70-99) Calcium Level 8.3 mg/dL (8.5-10.1) Magnesium Level 2.0 mg/dL (1.8-2.4) Test 04/03/20 06:07 04/03/20 07:26 04/03/20 11:20 White Blood Count 6.6 x10^3/uL (4.0-11.0) Red Blood Count 4.58 x10^6/uL (3.50-5.40) Hemoglobin 10.7 g/dL (12.0-15.5) Hematocrit 34.4 % (36.0-47.0) Mean Corpuscular Volume 75 fL (79-100) Mean Corpuscular Hemoglobin 23 pg (25-35) Mean Corpuscular Hemoglobin Concent 31 g/dL (31-37) Red Cell Distribution Width 20.2 % (11.5-14.5) Platelet Count 250 x10^3/uL (140-400) Neutrophils (%) (Auto) 73 % (31-73) Lymphocytes (%) (Auto) 17 % (24-48) Monocytes (%) (Auto) 8 % (0-9) Eosinophils (%) (Auto) 2 % (0-3) Basophils (%) (Auto) 0 % (0-3) Neutrophils # (Auto) 4.8 x10^3/uL (1.8-7.7) Lymphocytes # (Auto) 1.1 x10^3/uL (1.0-4.8) Monocytes # (Auto) 0.5 x10^3/uL (0.0-1.1) Eosinophils # (Auto) 0.1 x10^3/uL (0.0-0.7) Basophils # (Auto) 0.0 x10^3/uL (0.0-0.2) Sodium Level 138 mmol/L (136-145) Potassium Level 4.2 mmol/L (3.5-5.1) Chloride Level 103 mmol/L (98-107) Carbon Dioxide Level 32 mmol/L (21-32) Anion Gap 3 (6-14) Blood Urea Nitrogen 25 mg/dL (7-20) Creatinine 1.6 mg/dL (0.6-1.0) Estimated GFR (Cockcroft-Gault) 31.7 Glucose Level 108 mg/dL (70-99) Calcium Level 8.6 mg/dL (8.5-10.1) Glucose (Fingerstick) 100 mg/dL (70-99) 198 mg/dL (70-99) Laboratory Tests Test 04/02/20 12:24 04/02/20 14:05 04/02/20 16:33 04/02/20 20:29 Glucose (Fingerstick) 234 mg/dL (70-99) 95 mg/dL (70-99) 150 mg/dL (70-99) Sodium Level 138 mmol/L (136-145) Potassium Level 4.4 mmol/L (3.5-5.1) Chloride Level 103 mmol/L (98-107) Carbon Dioxide Level 32 mmol/L (21-32) Anion Gap 3 (6-14) Blood Urea Nitrogen 24 mg/dL (7-20) Creatinine 1.6 mg/dL (0.6-1.0) Estimated GFR (Cockcroft-Gault) 31.7 Glucose Level 120 mg/dL (70-99) Calcium Level 8.3 mg/dL (8.5-10.1) Magnesium Level 2.0 mg/dL (1.8-2.4) Test 04/03/20 06:07 04/03/20 07:26 04/03/20 11:20 White Blood Count 6.6 x10^3/uL (4.0-11.0) Red Blood Count 4.58 x10^6/uL (3.50-5.40) Hemoglobin 10.7 g/dL (12.0-15.5) Hematocrit 34.4 % (36.0-47.0) Mean Corpuscular Volume 75 fL (79-100) Mean Corpuscular Hemoglobin 23 pg (25-35) Mean Corpuscular Hemoglobin Concent 31 g/dL (31-37) Red Cell Distribution Width 20.2 % (11.5-14.5) Platelet Count 250 x10^3/uL (140-400) Neutrophils (%) (Auto) 73 % (31-73) Lymphocytes (%) (Auto) 17 % (24-48) Monocytes (%) (Auto) 8 % (0-9) Eosinophils (%) (Auto) 2 % (0-3) Basophils (%) (Auto) 0 % (0-3) Neutrophils # (Auto) 4.8 x10^3/uL (1.8-7.7) Lymphocytes # (Auto) 1.1 x10^3/uL (1.0-4.8) Monocytes # (Auto) 0.5 x10^3/uL (0.0-1.1) Eosinophils # (Auto) 0.1 x10^3/uL (0.0-0.7) Basophils # (Auto) 0.0 x10^3/uL (0.0-0.2) Sodium Level 138 mmol/L (136-145) Potassium Level 4.2 mmol/L (3.5-5.1) Chloride Level 103 mmol/L (98-107) Carbon Dioxide Level 32 mmol/L (21-32) Anion Gap 3 (6-14) Blood Urea Nitrogen 25 mg/dL (7-20) Creatinine 1.6 mg/dL (0.6-1.0) Estimated GFR (Cockcroft-Gault) 31.7 Glucose Level 108 mg/dL (70-99) Calcium Level 8.6 mg/dL (8.5-10.1) Glucose (Fingerstick) 100 mg/dL (70-99) 198 mg/dL (70-99) Images Images Single AP view of the chest. Comparison: 03/02/2020. Indication: CHF Findings: Right clavian pacemaker is unchanged. The heart is enlarged but stable. There are small bibasilar left greater than right effusions. There is persistent interstitial opacity in the right lung base. Impression: 1. Persistent right interstitial opacity in the lung base. Additionally there are new bilateral left greater than right pleural effusions. Assessment/Plan Assessment/Plan IMP CKD STAGE 3 - CR STABLE AT 1.6 HTN HX-STABLE ACUTE ON CHRONIC SYSTOLIC CHF CM WITH EF OF 20+25% HYPERVOLEMIA CHRONIC DYSPNEA - WITH CHRONIC 3 L O2 NEED HX OF PULMONARY EMBOLI ANEMIA OF CKD IRON DEFICIENCY PLAN DIURESIS FOR NOW IV VENOFER MONITOR RENAL FUNCTION SUPPLEMENTAL O2 NEEDED PULMONARY FOLLOWING WILL FOLLOW COMPA GALLAGHER MD Apr 03, 2020 12:10
[2020-04-03] MEDS ORDERED: IRON SUCROSE COMPLEX 500 MG in IV NORMAL SALINE 250ML 250 ML IV ONE (12:30)
[2020-04-03 15:09] VITALS: BP 118/61
[2020-04-03] MEDS: WARFARIN 3 MG TABLET. PO SCH (16:08)
--- NOTE | 2020-04-03 17:01 | PDOC ---
CARDIOLOGY PROGRESS NOTE SUBJECTIVE: No new events. OBJECTIVE: Vital Signs/I&O: Vital Signs Date Time Temp Pulse Resp B/P (MAP) Pulse Ox O2 Delivery O2 Flow Rate FiO2 04/03/20 15:09 97.8 78 18 118/61 (80) 99 Nasal Cannula 3.0 97.8 I & O 04/02/20 04/02/20 04/03/20 15:00 23:00 07:00 Intake Total 600 ml 520 ml 50 ml Output Total 900 ml 1700 ml 500 ml Balance -300 ml -1180 ml -450 ml Objective: GEN.: No apparent distress. Alert and oriented. HEENT: Head is normocephalic, atraumatic NECK: Supple. LUNGS: Clear to auscultation. HEART: RRR, S1, S2 present. Peripheral pulses intact ABDOMEN: Soft, nontender. Positive bowel sounds. EXTREMITIES: Without any cyanosis. NEUROLOGIC: Normal speech, normal tone PSYCHIATRIC: Normal affect, normal mood. SKIN: No ulcerations CURRENT MEDICATIONS: Current Medications Medications (Trade) Dose Ordered Sig/Lester Route PRN Reason Start Time Stop Time Status Last Admin Dose Admin Iron Sucrose 500 mg/Sodium Chloride 275 ml @ 78.571 mls/ hr 1X ONCE IV 04/03/20 12:30 04/03/20 15:59 DC 04/03/20 12:42 DIAGNOSTIC TESTING: Labs: Laboratory Tests 04/03/20 06:07 Laboratory Tests Test 04/02/20 20:29 04/03/20 06:07 04/03/20 07:26 04/03/20 11:20 Glucose (Fingerstick) 150 mg/dL (70-99) H 100 mg/dL (70-99) H 198 mg/dL (70-99) H White Blood Count 6.6 x10^3/uL (4.0-11.0) Red Blood Count 4.58 x10^6/uL (3.50-5.40) Hemoglobin 10.7 g/dL (12.0-15.5) L Hematocrit 34.4 % (36.0-47.0) L Mean Corpuscular Volume 75 fL (79-100) L Mean Corpuscular Hemoglobin 23 pg (25-35) L Mean Corpuscular Hemoglobin Concent 31 g/dL (31-37) Red Cell Distribution Width 20.2 % (11.5-14.5) H Platelet Count 250 x10^3/uL (140-400) Neutrophils (%) (Auto) 73 % (31-73) Lymphocytes (%) (Auto) 17 % (24-48) L Monocytes (%) (Auto) 8 % (0-9) Eosinophils (%) (Auto) 2 % (0-3) Basophils (%) (Auto) 0 % (0-3) Neutrophils # (Auto) 4.8 x10^3/uL (1.8-7.7) Lymphocytes # (Auto) 1.1 x10^3/uL (1.0-4.8) Monocytes # (Auto) 0.5 x10^3/uL (0.0-1.1) Eosinophils # (Auto) 0.1 x10^3/uL (0.0-0.7) Basophils # (Auto) 0.0 x10^3/uL (0.0-0.2) Sodium Level 138 mmol/L (136-145) Potassium Level 4.2 mmol/L (3.5-5.1) Chloride Level 103 mmol/L (98-107) Carbon Dioxide Level 32 mmol/L (21-32) Anion Gap 3 (6-14) L Blood Urea Nitrogen 25 mg/dL (7-20) H Creatinine 1.6 mg/dL (0.6-1.0) H Estimated GFR (Cockcroft-Gault) 31.7 Glucose Level 108 mg/dL (70-99) H Calcium Level 8.6 mg/dL (8.5-10.1) Test 04/03/20 15:46 Glucose (Fingerstick) 176 mg/dL (70-99) H ASSESSMENT: 1. Acute on chronic respiratory failure with hx of prior PE, CHF and renal fail ure. negative for covid 2. Acute on chronic combined systolic/diastolic CHF: better 2. CAD: Clinically stable 3. 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 recent EF at 20-25% 4. Chronic anticoagulation: on coumadin INR at 2.3 5. H/o VT with ICD discharge. On Amiodarone for rhythm maintenance No ILD from recent imaging 6. DM2/HLP: Continue current treatment 7. PAD: s/p percutaneous revascularization. stable, no claudications 8. MAURILIO on CKD3; possibly cardiorenal with associated use of entresto and prior large dosing of lasix. 9. HTN: controlled 10. H/o PE s/p IVC filter. This was removed 02/18/20 12. s/p AICD ([facility] A) PLAN: 1. Continue present meds. Consider outpt re-initiation of entresto. Otherwise, could try hydral/imdur if BP allows. 2. She volume overloaded still, abdomen is bloated. Continue diuresis, monitor renal function. Supportive care. Will follow along. Justicifation of Admission Dx: Justifications for Admission: Justification of Admission Dx: Yes DAVONTE MUHAMMAD MD Apr 03, 2020 17:01
[2020-04-03 19:07] VITALS: BP 106/56
[2020-04-03] MEDS: MONTELUKAST SODIUM 10 MG TABLET. PO SCH (20:25)
[2020-04-03] MEDS: ATORVASTATIN CALCIUM 40 MG TABLET. PO SCH (20:25)
[2020-04-03] MEDS: INSULIN GLARGINE SYRINGE. SQ SCH (20:30)
[2020-04-03 23:00] VITALS: BP 121/61
[2020-04-04 03:00] VITALS: BP 123/59
[2020-04-04] MEDS: LEVOTHYROXINE 100 MCG TABLET PO SCH (06:25)
[2020-04-04 07:00] VITALS: BP 111/47
[2020-04-04 07:30] LABS: CALCIUM 8.5 mg/dL (8.5-10.1); CREATININE 1.5 mg/dL (0.6-1.0); GFR 34.1; POTASSIUM 4.2 mmol/L (3.5-5.1)
[2020-04-04 07:34] LABS: BASO # 0.1 x10^3/uL (0.0-0.2); BASO % 1 % (0-3); EOS # 0.1 x10^3/uL (0.0-0.7); EOS % 1 % (0-3); HEMATOCRIT 33.8 % (36.0-47.0); HEMOGLOBIN 10.6 g/dL (12.0-15.5); LYMPH # 0.8 x10^3/uL (1.0-4.8); LYMPH % 12 % (24-48); MEAN CORPUSCULAR HEMOGLOBIN 24 pg (25-35); MEAN CORPUSCULAR HGB CONC 31 g/dL (31-37); MEAN CORPUSCULAR VOLUME 75 fL (79-100); MONO # 0.6 x10^3/uL (0.0-1.1); MONO % 9 % (0-9); NEUT % 77 % (31-73); PLATELET COUNT 249 x10^3/uL (140-400); RED CELL DISTRIBUTION WIDTH 20.2 % (11.5-14.5); WHITE BLOOD COUNT 6.6 x10^3/uL (4.0-11.0)
[2020-04-04 07:52] LABS: PROTHROMBIN TIME PATIENT 26.3 SEC (11.7-14.0)
[2020-04-04] MEDS: INSULIN LISPRO 300 UNITS/3 ML VIAL. SQ SCH ×3 (08:00→17:00)
[2020-04-04] MEDS: FERROUS SULFATE 325 MG TABLET. PO SCH ×4 (08:10→22:03)
[2020-04-04] MEDS: GABAPENTIN 100 MG CAPSULE. PO SCH ×2 (08:10→22:02)
[2020-04-04] MEDS: ASPIRIN CHEWABLE 81 MG TABLET. PO SCH (08:11)
[2020-04-04] MEDS: ASCORBIC ACID 500 MG TABLET PO SCH (08:11)
[2020-04-04] MEDS: PANTOPRAZOLE 40 MG TABLET.DR. PO SCH ×2 (08:11→17:15)
[2020-04-04] MEDS: AMIODARONE HCL 200 MG TABLET. PO SCH (08:11)
[2020-04-04] MEDS: POTASSIUM CHLORIDE 20 MEQ TABLET.ER. PO SCH (08:11)
[2020-04-04] MEDS: FENOFIBRATE,MICRONIZED 134 MG CAPSULE PO SCH (08:11)
[2020-04-04] MEDS: CITALOPRAM 20 MG TABLET. PO SCH (08:11)
[2020-04-04] MEDS: DOCUSATE SODIUM 100 MG CAPSULE. PO SCH ×2 (08:11→22:02)
[2020-04-04] MEDS: FUROSEMIDE 40 MG/4 ML VIAL. IVP SCH ×2 (08:12→14:54)
--- NOTE | 2020-04-04 10:23 | PDOC ---
PULMONARY PROGRESS NOTES Subjective Remains on 3 liters N/C which is baseline oxygen requirements, doesnt have a cpap to use at home no cp, sob better, has occ cough. feeling better, Vitals Vital Signs Date Time Temp Pulse Resp B/P (MAP) Pulse Ox O2 Delivery O2 Flow Rate FiO2 04/04/20 08:11 89 111/47 04/04/20 08:00 Nasal Cannula 3.0 04/04/20 07:00 98.0 20 97 98.0 ROS: No Nausea, No Chest Pain, No Abdominal Pain, No Increase Cough General: Alert, Oriented X4, No acute distress Lungs: Clear Cardiovascular: S1, S2 Abdomen: Soft, Other Neuro Exam: Alert Extremities: Other (edema +1 BLE ) Skin: Warm Labs Laboratory Tests Test 04/02/20 12:24 04/02/20 14:05 04/02/20 16:33 04/02/20 20:29 Glucose (Fingerstick) 234 mg/dL (70-99) 95 mg/dL (70-99) 150 mg/dL (70-99) Sodium Level 138 mmol/L (136-145) Potassium Level 4.4 mmol/L (3.5-5.1) Chloride Level 103 mmol/L (98-107) Carbon Dioxide Level 32 mmol/L (21-32) Anion Gap 3 (6-14) Blood Urea Nitrogen 24 mg/dL (7-20) Creatinine 1.6 mg/dL (0.6-1.0) Estimated GFR (Cockcroft-Gault) 31.7 Glucose Level 120 mg/dL (70-99) Calcium Level 8.3 mg/dL (8.5-10.1) Magnesium Level 2.0 mg/dL (1.8-2.4) Test 04/03/20 06:07 04/03/20 07:26 04/03/20 11:20 04/03/20 15:46 White Blood Count 6.6 x10^3/uL (4.0-11.0) Red Blood Count 4.58 x10^6/uL (3.50-5.40) Hemoglobin 10.7 g/dL (12.0-15.5) Hematocrit 34.4 % (36.0-47.0) Mean Corpuscular Volume 75 fL (79-100) Mean Corpuscular Hemoglobin 23 pg (25-35) Mean Corpuscular Hemoglobin Concent 31 g/dL (31-37) Red Cell Distribution Width 20.2 % (11.5-14.5) Platelet Count 250 x10^3/uL (140-400) Neutrophils (%) (Auto) 73 % (31-73) Lymphocytes (%) (Auto) 17 % (24-48) Monocytes (%) (Auto) 8 % (0-9) Eosinophils (%) (Auto) 2 % (0-3) Basophils (%) (Auto) 0 % (0-3) Neutrophils # (Auto) 4.8 x10^3/uL (1.8-7.7) Lymphocytes # (Auto) 1.1 x10^3/uL (1.0-4.8) Monocytes # (Auto) 0.5 x10^3/uL (0.0-1.1) Eosinophils # (Auto) 0.1 x10^3/uL (0.0-0.7) Basophils # (Auto) 0.0 x10^3/uL (0.0-0.2) Sodium Level 138 mmol/L (136-145) Potassium Level 4.2 mmol/L (3.5-5.1) Chloride Level 103 mmol/L (98-107) Carbon Dioxide Level 32 mmol/L (21-32) Anion Gap 3 (6-14) Blood Urea Nitrogen 25 mg/dL (7-20) Creatinine 1.6 mg/dL (0.6-1.0) Estimated GFR (Cockcroft-Gault) 31.7 Glucose Level 108 mg/dL (70-99) Calcium Level 8.6 mg/dL (8.5-10.1) Glucose (Fingerstick) 100 mg/dL (70-99) 198 mg/dL (70-99) 176 mg/dL (70-99) Test 04/03/20 19:46 04/04/20 06:40 04/04/20 07:34 Glucose (Fingerstick) 93 mg/dL (70-99) 107 mg/dL (70-99) White Blood Count 6.6 x10^3/uL (4.0-11.0) Red Blood Count 4.50 x10^6/uL (3.50-5.40) Hemoglobin 10.6 g/dL (12.0-15.5) Hematocrit 33.8 % (36.0-47.0) Mean Corpuscular Volume 75 fL (79-100) Mean Corpuscular Hemoglobin 24 pg (25-35) Mean Corpuscular Hemoglobin Concent 31 g/dL (31-37) Red Cell Distribution Width 20.2 % (11.5-14.5) Platelet Count 249 x10^3/uL (140-400) Neutrophils (%) (Auto) 77 % (31-73) Lymphocytes (%) (Auto) 12 % (24-48) Monocytes (%) (Auto) 9 % (0-9) Eosinophils (%) (Auto) 1 % (0-3) Basophils (%) (Auto) 1 % (0-3) Neutrophils # (Auto) 5.0 x10^3/uL (1.8-7.7) Lymphocytes # (Auto) 0.8 x10^3/uL (1.0-4.8) Monocytes # (Auto) 0.6 x10^3/uL (0.0-1.1) Eosinophils # (Auto) 0.1 x10^3/uL (0.0-0.7) Basophils # (Auto) 0.1 x10^3/uL (0.0-0.2) Prothrombin Time 26.3 SEC (11.7-14.0) Prothromb Time International Ratio 2.4 (0.8-1.1) Sodium Level 139 mmol/L (136-145) Potassium Level 4.2 mmol/L (3.5-5.1) Chloride Level 101 mmol/L (98-107) Carbon Dioxide Level 32 mmol/L (21-32) Anion Gap 6 (6-14) Blood Urea Nitrogen 24 mg/dL (7-20) Creatinine 1.5 mg/dL (0.6-1.0) Estimated GFR (Cockcroft-Gault) 34.1 Glucose Level 110 mg/dL (70-99) Calcium Level 8.5 mg/dL (8.5-10.1) Laboratory Tests Test 04/03/20 11:20 04/03/20 15:46 04/03/20 19:46 04/04/20 06:40 Glucose (Fingerstick) 198 mg/dL (70-99) 176 mg/dL (70-99) 93 mg/dL (70-99) White Blood Count 6.6 x10^3/uL (4.0-11.0) Red Blood Count 4.50 x10^6/uL (3.50-5.40) Hemoglobin 10.6 g/dL (12.0-15.5) Hematocrit 33.8 % (36.0-47.0) Mean Corpuscular Volume 75 fL (79-100) Mean Corpuscular Hemoglobin 24 pg (25-35) Mean Corpuscular Hemoglobin Concent 31 g/dL (31-37) Red Cell Distribution Width 20.2 % (11.5-14.5) Platelet Count 249 x10^3/uL (140-400) Neutrophils (%) (Auto) 77 % (31-73) Lymphocytes (%) (Auto) 12 % (24-48) Monocytes (%) (Auto) 9 % (0-9) Eosinophils (%) (Auto) 1 % (0-3) Basophils (%) (Auto) 1 % (0-3) Neutrophils # (Auto) 5.0 x10^3/uL (1.8-7.7) Lymphocytes # (Auto) 0.8 x10^3/uL (1.0-4.8) Monocytes # (Auto) 0.6 x10^3/uL (0.0-1.1) Eosinophils # (Auto) 0.1 x10^3/uL (0.0-0.7) Basophils # (Auto) 0.1 x10^3/uL (0.0-0.2) Prothrombin Time 26.3 SEC (11.7-14.0) Prothromb Time International Ratio 2.4 (0.8-1.1) Sodium Level 139 mmol/L (136-145) Potassium Level 4.2 mmol/L (3.5-5.1) Chloride Level 101 mmol/L (98-107) Carbon Dioxide Level 32 mmol/L (21-32) Anion Gap 6 (6-14) Blood Urea Nitrogen 24 mg/dL (7-20) Creatinine 1.5 mg/dL (0.6-1.0) Estimated GFR (Cockcroft-Gault) 34.1 Glucose Level 110 mg/dL (70-99) Calcium Level 8.5 mg/dL (8.5-10.1) Test 04/04/20 07:34 Glucose (Fingerstick) 107 mg/dL (70-99) Medications Active Scripts Medications Dose Route/Sig Max Daily Dose Days Date Category Warfarin Sodium 3 Mg Tablet 3 Mg PO 1X 04/01/20 Reported Lasix (Furosemide) 20 Mg Tablet 1 Tab PO DAILY 30 04/01/20 Reported Warfarin Sodium 3 Mg Tablet 1 Tab PO DAILY 04/01/20 Reported Coumadin (Warfarin Sodium) 2.5 Mg Tablet 1 Each MC 1X WARF 30 03/02/20 Rx Vitamin C (Ascorbic Acid) 500 Mg Tablet 500 Mg PO DAILY 30 03/02/20 Rx Culturelle (Lactobacillus Rhamnosus Gg) 1 Each Cap.sprink 1 Cap PO BID 30 03/02/20 Rx Pantoprazole Sodium (Pantoprazole Sodium) 40 Mg Tablet.dr 40 Mg PO BIDAC 30 03/02/20 Rx Guaifenesin Dm Syrup (Guaifenesin/Dextromethorphan) 5 Ml Syrup 10 Ml PO PRN Q6HRS PRN 14 03/02/20 Rx Furosemide 40 Mg Tablet 40 Mg PO BID92 30 03/02/20 Rx Klor-Con M20 (Potassium Chloride) 20 Meq Tab.er.prt 20 Meq PO DAILYWBKFT 10 03/02/20 Rx Isosorbide Mononitrate Er (Isosorbide Mononitrate) 30 Mg Tab.er.24h 30 Mg PO DAILY 30 03/02/20 Rx Feosol (Ferrous Sulfate) 325 Mg Tablet 325 Mg PO [id number] 30 03/02/20 Rx Augmentin 875-125 Tablet (Amoxicillin/Potassium Clav) 1 Each Tablet 1 Tab PO BID 7 03/02/20 Rx Entresto 97 mg-103 mg Tablet (Sacubitril/Valsartan) 1 Each Tablet 0.5 Each PO DAILY 02/18/20 Reported Aspirin 81 Mg Tab.chew 81 Mg PO DAILY 02/18/20 Reported Citalopram Hbr (Citalopram Hydrobromide) 20 Mg Tablet 1 Tab PO DAILY08 12/23/19 Reported Hydrocodone-Apap 7.5-325 (Hydrocodone Bit/Acetaminophen) 1 Tab Tablet 1 Tab PO Q4HRS PRN 12/23/19 Reported Amiodarone Hcl 200 Mg Tablet 1 Tab PO DAILY 12/23/19 Reported Colace (Docusate Sodium) 100 Mg Capsule 1 Cap PO BID 30 10/14/19 Rx Alprazolam 0.25 Mg Tablet 1 Tab PO BID PRN 10/02/19 Rx Montelukast Sodium Tablet (Montelukast Sodium) 10 Mg Tablet 10 Mg PO HS 11/30/17 Reported Levothyroxine Sodium 100 Mcg Tablet 1 Tab PO DAILY 05/26/16 Reported Proair Hfa Inhaler (Albuterol Sulfate) 8.5 Gm Hfa.aer.ad 2 Puff IH PRN Q4-6HRS 05/20/15 Reported Tylenol (Acetaminophen) 325 Mg Tablet 650 Mg PO 05/14/15 Reported Fenofibrate (Fenofibrate Nanocrystallized) 145 Mg Tablet 1 Tab PO DAILY 05/14/15 Reported Humalog (Insulin Lispro) 100 Unit/1 Ml Vial 15 Unit SQ TID 04/08/14 Reported Lantus Solostar (Insulin Glargine,Hum.rec.anlog) 100 Unit/1 Ml Insuln.pen 30 Unit SQ HS 04/08/14 Reported Pantoprazole Sodium (Pantoprazole Sodium) 40 Mg Tablet.dr 40 Mg PO DAILY 04/08/14 Reported Atorvastatin Calcium 40 Mg Tablet 40 Mg PO HS 04/08/14 Reported Gabapentin (Gabapentin) 100 Mg Capsule 100 Mg PO BID 04/08/14 Reported Comments CXR 04/01 1. Persistent right interstitial opacity in the lung base. Additionally there are new bilateral left greater than right pleural effusions. Impression . IMPRESSION: 1. Dyspnea with exertion for the last few days, likely related to acute on chronic systolic heart failure. The patient has history of pulmonary embolism and has been on Coumadin with therapeutic INR and clinically low suspicion for any recurrent thromboembolic disease. 2. The patient with history of pulmonary embolism in 2019, which was appropriately treated and once it was resolved she was taken off of anticoagulation. She also had an IVC filter, which was subsequently removed as well. 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 Her INR is therapeutic. 3. No significant tobacco history. 4. History of coronary artery disease with stents and ejection fraction of 20-25%. 5. Morbid obesity. prob leo 6. Chronic kidney disease. Plan . RECOMMENDATIONS: 1. Continue with present oxygen at 3 liters. 2. Continue diuresis, monitor renal function and k 3. Follow cardiology recs 4. Continue with Coumadin for life. INR is therapeutic. We will keep the INR between 2 and 3. 5. psg as out pt, doesn't have CPAP to use at home, is on 02 D/W RN, pt, MARIO Samaniego MD Apr 04, 2020 10:23
[2020-04-04 10:24] VITALS: BP 99/59
--- NOTE | 2020-04-04 10:53 | PDOC ---
[employer] PROGRESS NOTE Chief Complaint Chief Complaint Acute on chronic hypoxic respiratory failure due to acute on chronic systolic/diastolic CHF and severe COPD exacerbation CAD status post stenting Severe cardiomyopathy Chronic anticoagulation: on coumadin INR at 2.3 H/o VT with ICD discharge. On Amiodarone for rhythm maintenance No ILD from recent imaging PAD: s/p percutaneous revascularization. stable, no claudications H/o PE s/p IVC filter. This was removed 02/18/20 Acute on chronic renal failure due to possible Lasix use and Entresto; possible cardiorenal DM Anemia due to chronic kidney disease HTN Hypothyroidism INR in the a.m. Appreciate nephrology recommendations, IV Venofer and possible 1 more dose today Appreciate cardiology recommendations, continue Lasix diuresis if Cr is stable then may restart low dose home entresto prior to DC. Appreciate pulmonary recommendations, for outpatient polysomnography and CPAP set up Continue coumadin therapy Continue Amiodarone therapy for VT suppression Appreciate pulmonary recommendations, continue with oxygen 3 L and diuresis if renal function allows. Patient should have evaluation as an outpatient for CPAP at home Warfarin for DVT prophylaxis Protonix GI prophylaxis ADA/cardiac diet Full code Discussed with RN and SW Dispo continue diuresis Surrogate decision maker is self History of Present Illness History of Present Illness 04/04/2020 No acute events overnight. Patient sitting on commode and endorsing improved respiratory status. Saturating 97% on 3 L nasal cannula. Patient's chart, labs, images were reviewed and discussed with RN 04/03/2020 No acute events overnight. Patient endorses improved respiratory status. Currently on 3 L nasal cannula of O2. Patient's chart, labs, images were reviewed and discussed with RN 04/02/2020 Patient seen and examined Sitting up in bed in [facility] Chart reviewed Discussed with RN Vitals/I&O Vitals/I&O: Vital Signs Date Time Temp Pulse Resp B/P (MAP) Pulse Ox O2 Delivery O2 Flow Rate FiO2 04/04/20 10:24 98.1 82 18 99/59 (72) 97 Nasal Cannula 3.0 98.1 I & O 04/03/20 04/03/20 04/04/20 15:00 23:00 07:00 Intake Total 500 ml 540 ml 100 ml Output Total 900 ml 550 ml 850 ml Balance -400 ml -10 ml -750 ml Physical Exam Physical Exam: GENERAL: No apparent distress. Alert and oriented. HEENT: Normal cephalic atraumatic, external auditory canals are patent EYES: Extraocular muscles are intact, pupils are equally round and reactive MUSCULOSKELETAL: Well developed, well nourished, good range of motion ENDOCRINE: No thyromegaly noted LYMPHATICS: No cervical chain or axillary nodes were noted HEMATOPOIETIC: No bruising NECK: Supple, no JVD, no thyromegaly was noted. LUNGS: She has decreased breath sounds. HEART: RRR, S1, S2 present. Peripheral pulses intact, no obvious murmurs were noted. ABDOMEN: Soft, nontender. EXTREMITIES: Without any cyanosis, clubbing, or edema. NEUROLOGIC: Normal speech, normal tone. A & O x3, moves all extremities, no obvious focal deficits. PSYCHIATRIC: Normal affect, normal mood. Stable. SKIN: No ulcerations or rashes, good skin turgor, no jaundice. VASCULAR: Good capillary refill, neurovascular bundle appears to be intact. General: Alert, Cooperative, No acute distress Heart: Regular rate Lungs: Clear Abdomen: Normal bowel sounds, Soft Extremities: No edema Skin: No breakdown Labs Labs: Laboratory Tests Test 04/03/20 11:20 04/03/20 15:46 04/03/20 19:46 04/04/20 06:40 Glucose (Fingerstick) 198 mg/dL (70-99) 176 mg/dL (70-99) 93 mg/dL (70-99) White Blood Count 6.6 x10^3/uL (4.0-11.0) Red Blood Count 4.50 x10^6/uL (3.50-5.40) Hemoglobin 10.6 g/dL (12.0-15.5) Hematocrit 33.8 % (36.0-47.0) Mean Corpuscular Volume 75 fL (79-100) Mean Corpuscular Hemoglobin 24 pg (25-35) Mean Corpuscular Hemoglobin Concent 31 g/dL (31-37) Red Cell Distribution Width 20.2 % (11.5-14.5) Platelet Count 249 x10^3/uL (140-400) Neutrophils (%) (Auto) 77 % (31-73) Lymphocytes (%) (Auto) 12 % (24-48) Monocytes (%) (Auto) 9 % (0-9) Eosinophils (%) (Auto) 1 % (0-3) Basophils (%) (Auto) 1 % (0-3) Neutrophils # (Auto) 5.0 x10^3/uL (1.8-7.7) Lymphocytes # (Auto) 0.8 x10^3/uL (1.0-4.8) Monocytes # (Auto) 0.6 x10^3/uL (0.0-1.1) Eosinophils # (Auto) 0.1 x10^3/uL (0.0-0.7) Basophils # (Auto) 0.1 x10^3/uL (0.0-0.2) Prothrombin Time 26.3 SEC (11.7-14.0) Prothromb Time International Ratio 2.4 (0.8-1.1) Sodium Level 139 mmol/L (136-145) Potassium Level 4.2 mmol/L (3.5-5.1) Chloride Level 101 mmol/L (98-107) Carbon Dioxide Level 32 mmol/L (21-32) Anion Gap 6 (6-14) Blood Urea Nitrogen 24 mg/dL (7-20) Creatinine 1.5 mg/dL (0.6-1.0) Estimated GFR (Cockcroft-Gault) 34.1 Glucose Level 110 mg/dL (70-99) Calcium Level 8.5 mg/dL (8.5-10.1) Test 04/04/20 07:34 Glucose (Fingerstick) 107 mg/dL (70-99) Assessment and Plan Assessmemt and Plan Problems Medical Problems: (1) Dyspnea on exertion Status: Acute (2) Elevated brain natriuretic peptide (BNP) level Status: Acute (3) Person under investigation for COVID-19 Status: Acute Comment Review of Relevant I have reviewed the following items juliette (where applicable) has been applied. Medications: Current Medications Medications (Trade) Dose Ordered Sig/Lester Route PRN Reason Start Time Stop Time Status Last Admin Dose Admin Iron Sucrose 500 mg/Sodium Chloride 275 ml @ 78.571 mls/ hr 1X ONCE IV 04/03/20 12:30 04/03/20 15:59 DC 04/03/20 12:42 Justicifation of Admission Dx: Justifications for Admission: Justification of Admission Dx: Yes GIANNA BRENNAN MD Apr 04, 2020 10:53
--- NOTE | 2020-04-04 12:11 | PDOC ---
Renal-Progress Notes Subjective Notes Notes NO NEW COMPLAINTS History of Present Illness Hx of present illness STABLE Vitals Vitals Vital Signs Date Time Temp Pulse Resp B/P (MAP) Pulse Ox O2 Delivery O2 Flow Rate FiO2 04/04/20 10:24 98.1 82 18 99/59 (72) 97 Nasal Cannula 3.0 98.1 Weight Weight [ ] I.O. Intake and Output Intake and Output 04/04/20 07:00 Intake Total 1140 ml Output Total 2300 ml Balance -1160 ml Intake Oral 1140 ml Output Urine Total 2300 ml # Bowel Movements 2 Labs Labs Laboratory Tests Test 04/03/20 15:46 04/03/20 19:46 04/04/20 06:40 04/04/20 07:34 Glucose (Fingerstick) 176 mg/dL (70-99) 93 mg/dL (70-99) 107 mg/dL (70-99) White Blood Count 6.6 x10^3/uL (4.0-11.0) Red Blood Count 4.50 x10^6/uL (3.50-5.40) Hemoglobin 10.6 g/dL (12.0-15.5) Hematocrit 33.8 % (36.0-47.0) Mean Corpuscular Volume 75 fL (79-100) Mean Corpuscular Hemoglobin 24 pg (25-35) Mean Corpuscular Hemoglobin Concent 31 g/dL (31-37) Red Cell Distribution Width 20.2 % (11.5-14.5) Platelet Count 249 x10^3/uL (140-400) Neutrophils (%) (Auto) 77 % (31-73) Lymphocytes (%) (Auto) 12 % (24-48) Monocytes (%) (Auto) 9 % (0-9) Eosinophils (%) (Auto) 1 % (0-3) Basophils (%) (Auto) 1 % (0-3) Neutrophils # (Auto) 5.0 x10^3/uL (1.8-7.7) Lymphocytes # (Auto) 0.8 x10^3/uL (1.0-4.8) Monocytes # (Auto) 0.6 x10^3/uL (0.0-1.1) Eosinophils # (Auto) 0.1 x10^3/uL (0.0-0.7) Basophils # (Auto) 0.1 x10^3/uL (0.0-0.2) Prothrombin Time 26.3 SEC (11.7-14.0) Prothromb Time International Ratio 2.4 (0.8-1.1) Sodium Level 139 mmol/L (136-145) Potassium Level 4.2 mmol/L (3.5-5.1) Chloride Level 101 mmol/L (98-107) Carbon Dioxide Level 32 mmol/L (21-32) Anion Gap 6 (6-14) Blood Urea Nitrogen 24 mg/dL (7-20) Creatinine 1.5 mg/dL (0.6-1.0) Estimated GFR (Cockcroft-Gault) 34.1 Glucose Level 110 mg/dL (70-99) Calcium Level 8.5 mg/dL (8.5-10.1) Test 04/04/20 11:29 Glucose (Fingerstick) 212 mg/dL (70-99) Review of Systems Constitutional: yes: alert, oriented Ears/Nose/Throat: Yes: no symptom reported Eyes: Yes: no symptom reported Pulmonary: Yes dyspnea Cardiovascular: Yes no symptom reported Gastrointestional: Yes: no symptom reported Genitourinary: Yes: no symptom reported Musculoskeletal: Yes: no symptom reported Skin: Yes no symptom reported Psychiatric/Neurological: Yes: no symptom reported Endocrine: Yes: no symptom reported Physical Exam General Appearance: no apparent distress, oriented Skin: warm Respiratory: decreased breath sounds Heart: S1S2 Abdomen: soft, bowel sounds present Genitourinary: bladder flat Neurology: alert, oriented, follow commands Assessment Assessment IMP CKD STAGE 3 - CR STABLE AT 1.5 HTN HX-STABLE ACUTE ON CHRONIC SYSTOLIC CHF CM WITH EF OF 20+25% HYPERVOLEMIA CHRONIC DYSPNEA - WITH CHRONIC 3 L O2 NEED HX OF PULMONARY EMBOLI ANEMIA OF CKD IRON DEFICIENCY PLAN DIURESIS FOR NOW IV VENOFER MONITOR RENAL FUNCTION SUPPLEMENTAL O2 NEEDED PULMONARY FOLLOWING WILL FOLLOW COMPA GALLAGHER MD Apr 04, 2020 12:11
[2020-04-04 14:52] VITALS: BP 112/62
[2020-04-04] MEDS: WARFARIN 3 MG TABLET. PO SCH (17:15)
[2020-04-04 19:00] VITALS: BP 113/59
[2020-04-04] MEDS: ATORVASTATIN CALCIUM 40 MG TABLET. PO SCH (22:02)
[2020-04-04] MEDS: MONTELUKAST SODIUM 10 MG TABLET. PO SCH (22:03)
[2020-04-04] MEDS: INSULIN GLARGINE SYRINGE. SQ SCH (22:11)
[2020-04-04 23:00] VITALS: BP 120/60
[2020-04-05 03:00] VITALS: BP 109/103
[2020-04-05 05:03] LABS: BASO # 0.1 x10^3/uL (0.0-0.2); BASO % 1 % (0-3); EOS # 0.1 x10^3/uL (0.0-0.7); EOS % 2 % (0-3); HEMATOCRIT 32.3 % (36.0-47.0); HEMOGLOBIN 10.1 g/dL (12.0-15.5); LYMPH % 17 % (24-48); MEAN CORPUSCULAR HEMOGLOBIN 24 pg (25-35); MEAN CORPUSCULAR HGB CONC 31 g/dL (31-37); MEAN CORPUSCULAR VOLUME 76 fL (79-100); MONO # 0.6 x10^3/uL (0.0-1.1); MONO % 11 % (0-9); NEUT # 3.9 x10^3/uL (1.8-7.7); NEUT % 69 % (31-73); PLATELET COUNT 224 x10^3/uL (140-400); RED BLOOD COUNT 4.28 x10^6/uL (3.50-5.40); RED CELL DISTRIBUTION WIDTH 20.5 % (11.5-14.5); WHITE BLOOD COUNT 5.6 x10^3/uL (4.0-11.0)
[2020-04-05 05:24] LABS: CALCIUM 8.5 mg/dL (8.5-10.1); CREATININE 1.5 mg/dL (0.6-1.0); GFR 34.1; POTASSIUM 3.6 mmol/L (3.5-5.1)
[2020-04-05] MEDS: LEVOTHYROXINE 100 MCG TABLET PO SCH (06:29)
[2020-04-05 07:00] VITALS: BP 119/54
[2020-04-05] MEDS: INSULIN LISPRO 300 UNITS/3 ML VIAL. SQ SCH ×2 (08:00→12:13)
[2020-04-05] MEDS: FERROUS SULFATE 325 MG TABLET. PO SCH ×2 (08:35→12:10)
[2020-04-05] MEDS: POTASSIUM CHLORIDE 20 MEQ TABLET.ER. PO SCH (08:35)
[2020-04-05] MEDS: ASCORBIC ACID 500 MG TABLET PO SCH (08:35)
[2020-04-05] MEDS: DOCUSATE SODIUM 100 MG CAPSULE. PO SCH (08:35)
[2020-04-05] MEDS: ASPIRIN CHEWABLE 81 MG TABLET. PO SCH (08:35)
--- NOTE | 2020-04-05 08:35 | PDOC ---
[employer] PROGRESS NOTE Chief Complaint Chief Complaint Acute on chronic hypoxic respiratory failure due to acute on chronic systolic/diastolic CHF 20-25% and severe COPD exacerbation CAD status post stenting Severe cardiomyopathy Chronic anticoagulation: on coumadin INR at 2.3 H/o VT with ICD discharge. On Amiodarone for rhythm maintenance No ILD from recent imaging PAD - s/p percutaneous revascularization. stable, no claudications H/o PE s/p IVC filter. This was removed 02/18/20 Acute on chronic renal failure due to possible Lasix use and Entresto; possible cardiorenal DM Anemia due to chronic kidney disease HTN Hypothyroidism INR in the a.m. Appreciate nephrology recommendations, IV Venofer and possible 1 more dose today Appreciate cardiology recommendations, continue Lasix diuresis if Cr is stable then may restart low dose home entresto prior to DC. Appreciate pulmonary recommendations, for outpatient polysomnography and CPAP set up Continue coumadin therapy Continue Amiodarone therapy for VT suppression Appreciate pulmonary recommendations, continue with oxygen 3 L and diuresis if r enal function allows. Patient should have evaluation as an outpatient for CPAP at home Warfarin for DVT prophylaxis Protonix GI prophylaxis ADA/cardiac diet Full code Discussed with RN and SW Dispo continue diuresis Surrogate decision maker is self History of Present Illness History of Present Illness Ms Rodriguez is a 70 yo F w/ PMHx cardiomyopathy with an EF of 20-25%, pulmonary embolism s/p IVC filter, which was removed as well. She was readmitted in February and was found to have abnormal V/Q scan consistent with a [id number] probability for pulmonary embolism. She was restarted back on her anticoagulation. She was brought into the hospital after she was complaining of increasing shortness of breath. Normally, she is on home oxygen at 3 liters on a 24-hour basis. She denies any chest pain, but did feel lightheaded and dizzy. The patient had lower extremity edema, which is stated that it is improving. No cough, no fever, no chills. Her chest x-ray was reviewed. She still has mild residual congestive heart failure. Seen by pulmonology and cardiology put on IV Lasix with great improvement in significant weight loss, transition to oral torsemide. Vitals/I&O Vitals/I&O: Vital Signs Date Time Temp Pulse Resp B/P (MAP) Pulse Ox O2 Delivery O2 Flow Rate FiO2 04/05/20 07:00 97.8 72 18 119/54 (75) 98 Nasal Cannula 3.0 97.8 I & O 04/04/20 04/04/20 04/05/20 15:00 23:00 07:00 Intake Total 480 ml 480 ml 350 ml Output Total 2200 ml 300 ml Balance 480 ml -1720 ml 50 ml Physical Exam Physical Exam: GENERAL: No apparent distress. Alert and oriented. HEENT: Normal cephalic atraumatic, external auditory canals are patent EYES: Extraocular muscles are intact, pupils are equally round and reactive MUSCULOSKELETAL: Well developed, well nourished, good range of motion ENDOCRINE: No thyromegaly noted LYMPHATICS: No cervical chain or axillary nodes were noted HEMATOPOIETIC: No bruising NECK: Supple, no JVD, no thyromegaly was noted. LUNGS: She has decreased breath sounds. HEART: RRR, S1, S2 present. Peripheral pulses intact, no obvious murmurs were noted. ABDOMEN: Soft, nontender. EXTREMITIES: Without any cyanosis, clubbing, or edema. NEUROLOGIC: Normal speech, normal tone. A & O x3, moves all extremities, no obvious focal deficits. PSYCHIATRIC: Normal affect, normal mood. Stable. SKIN: No ulcerations or rashes, good skin turgor, no jaundice. VASCULAR: Good capillary refill, neurovascular bundle appears to be intact. General: Alert, Cooperative, No acute distress Heart: Regular rate Lungs: Clear Abdomen: Normal bowel sounds, Soft Extremities: No edema Skin: No breakdown Labs Labs: Laboratory Tests Test 04/04/20 11:29 04/04/20 16:28 04/04/20 20:02 04/05/20 04:40 Glucose (Fingerstick) 212 mg/dL (70-99) 78 mg/dL (70-99) 183 mg/dL (70-99) White Blood Count 5.6 x10^3/uL (4.0-11.0) Red Blood Count 4.28 x10^6/uL (3.50-5.40) Hemoglobin 10.1 g/dL (12.0-15.5) Hematocrit 32.3 % (36.0-47.0) Mean Corpuscular Volume 76 fL (79-100) Mean Corpuscular Hemoglobin 24 pg (25-35) Mean Corpuscular Hemoglobin Concent 31 g/dL (31-37) Red Cell Distribution Width 20.5 % (11.5-14.5) Platelet Count 224 x10^3/uL (140-400) Neutrophils (%) (Auto) 69 % (31-73) Lymphocytes (%) (Auto) 17 % (24-48) Monocytes (%) (Auto) 11 % (0-9) Eosinophils (%) (Auto) 2 % (0-3) Basophils (%) (Auto) 1 % (0-3) Neutrophils # (Auto) 3.9 x10^3/uL (1.8-7.7) Lymphocytes # (Auto) 1.0 x10^3/uL (1.0-4.8) Monocytes # (Auto) 0.6 x10^3/uL (0.0-1.1) Eosinophils # (Auto) 0.1 x10^3/uL (0.0-0.7) Basophils # (Auto) 0.1 x10^3/uL (0.0-0.2) Sodium Level 139 mmol/L (136-145) Potassium Level 3.6 mmol/L (3.5-5.1) Chloride Level 102 mmol/L (98-107) Carbon Dioxide Level 32 mmol/L (21-32) Anion Gap 5 (6-14) Blood Urea Nitrogen 23 mg/dL (7-20) Creatinine 1.5 mg/dL (0.6-1.0) Estimated GFR (Cockcroft-Gault) 34.1 Glucose Level 93 mg/dL (70-99) Calcium Level 8.5 mg/dL (8.5-10.1) Test 04/05/20 08:05 Glucose (Fingerstick) 84 mg/dL (70-99) Assessment and Plan Assessmemt and Plan Problems Medical Problems: (1) Dyspnea on exertion Status: Acute (2) Elevated brain natriuretic peptide (BNP) level Status: Acute (3) Person under investigation for COVID-19 Status: Acute Comment Review of Relevant I have reviewed the following items juliette (where applicable) has been applied. Justicifation of Admission Dx: Justifications for Admission: Justification of Admission Dx: Yes GINA PATEL MD Apr 05, 2020 08:35
[2020-04-05] MEDS: CITALOPRAM 20 MG TABLET. PO SCH (08:36)
[2020-04-05] MEDS: FENOFIBRATE,MICRONIZED 134 MG CAPSULE PO SCH (08:36)
[2020-04-05] MEDS: PANTOPRAZOLE 40 MG TABLET.DR. PO SCH (08:36)
[2020-04-05] MEDS: FUROSEMIDE 40 MG/4 ML VIAL. IVP SCH ×2 (08:36→14:00)
[2020-04-05] MEDS: AMIODARONE HCL 200 MG TABLET. PO SCH (08:36)
[2020-04-05] MEDS: GABAPENTIN 100 MG CAPSULE. PO SCH (08:36)
--- NOTE | 2020-04-05 09:35 | PDOC ---
SUBJECTIVE ROS States feeling better OBJECTIVE Vital Signs Vital Signs Date Time Temp Pulse Resp B/P (MAP) Pulse Ox O2 Delivery O2 Flow Rate FiO2 04/05/20 08:36 72 119/54 04/05/20 07:00 97.8 18 98 Nasal Cannula 3.0 97.8 I & 0 Intake and Output 04/05/20 07:00 Intake Total 1310 ml Output Total 2500 ml Balance -1190 ml Intake Oral 1310 ml Output Urine Total 2500 ml PHYSICAL EXAM Physical Exam General Appearance: no apparent distress HEEN -OM moist, On chronic o2 3 lts at home Respiratory: decreased breath sounds, Non labored Heart: S1S2 Abdomen: soft, bowel sounds present, Obese Genitourinary: No frazier, No cva or sp tenderness Neurology: alert, oriented, grossly normal Skin: warm, No rash DIAGNOSIS/ASSESSMENT Assessment & Plan CKD stage 3 Baseline Cr 1.5-1.8 currently stable She is established with us as OP, she was seen by our [employer] Supportive care, avoid nephrotoxins HTN - BP stable Acute on Chronic Systolic CHF -CM with EF 20+25% Chronic Dyspnea -chronic 3 L O2 at home HX of Pulm Emboli Anemia / Fe deficiency - Tsat as OP was 7 , Hgb 10.3 recommended Fe Infusion x 2 Recd one dose last night, 2 nd schedule for next week DM II CAD with Hx of stents COMMENT/RELEVANT DATA Meds Current Medications Medications (Trade) Dose Ordered Sig/Lester Start Time Stop Time Status Last Admin Dose Admin Acetaminophen (Tylenol) 650 mg PRN Q6HRS PRN 04/01/20 07:15 04/01/20 21:09 650 MG Acetaminophen/ Hydrocodone Bitart (Lortab 7.5/325) 1 tab PRN Q4HRS PRN 04/01/20 07:00 Alprazolam (Xanax) 0.25 mg PRN BID PRN 04/01/20 07:00 Amiodarone HCl (Cordarone) 200 mg DAILY 04/01/20 09:00 04/05/20 08:36 200 MG Ascorbic Acid (Vitamin C) 500 mg DAILY 04/01/20 09:00 04/05/20 08:35 500 MG Aspirin (Aspirin Chewable) 81 mg DAILY 04/01/20 09:00 04/05/20 08:35 81 MG Atorvastatin Calcium (Lipitor) 40 mg HS 04/01/20 21:00 04/04/20 22:02 40 MG Citalopram Hydrobromide (CeleXA) 20 mg DAILY08 04/01/20 08:00 04/05/20 08:36 20 MG Docusate Sodium (Colace) 100 mg BID 04/01/20 09:00 04/05/20 08:35 100 MG Fenofibrate (Lofibra) 134 mg DAILY 04/01/20 09:00 04/05/20 08:36 134 MG Ferrous Sulfate (Feosol) 325 mg [id number] 04/01/20 08:00 04/05/20 08:35 325 MG Furosemide (Lasix) 40 mg BID92 04/01/20 14:00 04/05/20 08:36 40 MG Gabapentin (Neurontin) 100 mg BID 04/01/20 09:00 04/05/20 08:36 100 MG Insulin Glargine (Lantus Syringe) 30 unit QHS 04/01/20 21:00 04/04/20 22:11 30 UNIT Insulin Human Lispro (HumaLOG) 15 units TIDWMEALS 04/01/20 08:00 04/04/20 11:52 15 UNITS Iron Sucrose 500 mg/Sodium Chloride 275 ml @ 78.571 mls/ hr 1X ONCE 04/03/20 12:30 04/03/20 15:59 DC 04/03/20 12:42 78.571 MLS/HR Levothyroxine Sodium (Synthroid) 100 mcg DAILY06 04/01/20 07:00 04/05/20 06:29 100 MCG Montelukast Sodium (Singulair) 10 mg HS 04/01/20 21:00 04/04/20 22:03 10 MG Pantoprazole Sodium (Protonix) 40 mg BIDAC 04/01/20 07:30 04/05/20 08:36 40 MG Potassium Chloride (Klor-Con) 20 meq [id number] 04/01/20 08:00 04/05/20 08:35 20 MEQ Sacubitril/ Valsartan (Entresto 49 Mg-51 Mg) 1 tab DAILY 04/01/20 09:00 04/01/20 11:41 DC 04/01/20 09:15 1 TAB Warfarin Sodium (Coumadin Per Physician) 1 each PRN DAILY PRN 04/01/20 22:00 04/04/20 14:09 1 EACH Warfarin Sodium (Coumadin) 3 mg DAILY16 04/01/20 23:00 04/04/20 17:15 3 MG Lab Laboratory Tests Test 04/04/20 11:29 04/04/20 16:28 04/04/20 20:02 04/05/20 04:40 Glucose (Fingerstick) 212 mg/dL (70-99) 78 mg/dL (70-99) 183 mg/dL (70-99) White Blood Count 5.6 x10^3/uL (4.0-11.0) Red Blood Count 4.28 x10^6/uL (3.50-5.40) Hemoglobin 10.1 g/dL (12.0-15.5) Hematocrit 32.3 % (36.0-47.0) Mean Corpuscular Volume 76 fL (79-100) Mean Corpuscular Hemoglobin 24 pg (25-35) Mean Corpuscular Hemoglobin Concent 31 g/dL (31-37) Red Cell Distribution Width 20.5 % (11.5-14.5) Platelet Count 224 x10^3/uL (140-400) Neutrophils (%) (Auto) 69 % (31-73) Lymphocytes (%) (Auto) 17 % (24-48) Monocytes (%) (Auto) 11 % (0-9) Eosinophils (%) (Auto) 2 % (0-3) Basophils (%) (Auto) 1 % (0-3) Neutrophils # (Auto) 3.9 x10^3/uL (1.8-7.7) Lymphocytes # (Auto) 1.0 x10^3/uL (1.0-4.8) Monocytes # (Auto) 0.6 x10^3/uL (0.0-1.1) Eosinophils # (Auto) 0.1 x10^3/uL (0.0-0.7) Basophils # (Auto) 0.1 x10^3/uL (0.0-0.2) Sodium Level 139 mmol/L (136-145) Potassium Level 3.6 mmol/L (3.5-5.1) Chloride Level 102 mmol/L (98-107) Carbon Dioxide Level 32 mmol/L (21-32) Anion Gap 5 (6-14) Blood Urea Nitrogen 23 mg/dL (7-20) Creatinine 1.5 mg/dL (0.6-1.0) Estimated GFR (Cockcroft-Gault) 34.1 Glucose Level 93 mg/dL (70-99) Calcium Level 8.5 mg/dL (8.5-10.1) Test 04/05/20 08:05 Glucose (Fingerstick) 84 mg/dL (70-99) Results All relevant outside records, renal labs, imaging studies, telemetry/EKG's were reviewed. Justicifation of Admission Dx: Justifications for Admission: Justification of Admission Dx: Yes NAYA MARI MD Apr 05, 2020 09:35
--- NOTE | 2020-04-05 10:43 | PDOC ---
PULMONARY PROGRESS NOTES Subjective Remains on 3 liters N/C which is baseline oxygen requirements, no cp, sob better, no increase in cough feeling better, plan to D/C home today Vitals Vital Signs Date Time Temp Pulse Resp B/P (MAP) Pulse Ox O2 Delivery O2 Flow Rate FiO2 04/05/20 08:36 72 119/54 04/05/20 08:00 Nasal Cannula 3.0 04/05/20 07:00 97.8 18 98 97.8 ROS: No Nausea, No Chest Pain, No Abdominal Pain, No Increase Cough General: Alert, Oriented X4, No acute distress Lungs: Clear Cardiovascular: S1, S2 Abdomen: Soft, Other (obese) Neuro Exam: Alert Extremities: Other (edema +1 BLE ) Skin: Warm Labs Laboratory Tests Test 04/03/20 11:20 04/03/20 15:46 04/03/20 19:46 04/04/20 06:40 Glucose (Fingerstick) 198 mg/dL (70-99) 176 mg/dL (70-99) 93 mg/dL (70-99) White Blood Count 6.6 x10^3/uL (4.0-11.0) Red Blood Count 4.50 x10^6/uL (3.50-5.40) Hemoglobin 10.6 g/dL (12.0-15.5) Hematocrit 33.8 % (36.0-47.0) Mean Corpuscular Volume 75 fL (79-100) Mean Corpuscular Hemoglobin 24 pg (25-35) Mean Corpuscular Hemoglobin Concent 31 g/dL (31-37) Red Cell Distribution Width 20.2 % (11.5-14.5) Platelet Count 249 x10^3/uL (140-400) Neutrophils (%) (Auto) 77 % (31-73) Lymphocytes (%) (Auto) 12 % (24-48) Monocytes (%) (Auto) 9 % (0-9) Eosinophils (%) (Auto) 1 % (0-3) Basophils (%) (Auto) 1 % (0-3) Neutrophils # (Auto) 5.0 x10^3/uL (1.8-7.7) Lymphocytes # (Auto) 0.8 x10^3/uL (1.0-4.8) Monocytes # (Auto) 0.6 x10^3/uL (0.0-1.1) Eosinophils # (Auto) 0.1 x10^3/uL (0.0-0.7) Basophils # (Auto) 0.1 x10^3/uL (0.0-0.2) Prothrombin Time 26.3 SEC (11.7-14.0) Prothromb Time International Ratio 2.4 (0.8-1.1) Sodium Level 139 mmol/L (136-145) Potassium Level 4.2 mmol/L (3.5-5.1) Chloride Level 101 mmol/L (98-107) Carbon Dioxide Level 32 mmol/L (21-32) Anion Gap 6 (6-14) Blood Urea Nitrogen 24 mg/dL (7-20) Creatinine 1.5 mg/dL (0.6-1.0) Estimated GFR (Cockcroft-Gault) 34.1 Glucose Level 110 mg/dL (70-99) Calcium Level 8.5 mg/dL (8.5-10.1) Test 04/04/20 07:34 04/04/20 11:29 04/04/20 16:28 04/04/20 20:02 Glucose (Fingerstick) 107 mg/dL (70-99) 212 mg/dL (70-99) 78 mg/dL (70-99) 183 mg/dL (70-99) Test 04/05/20 04:40 04/05/20 08:05 White Blood Count 5.6 x10^3/uL (4.0-11.0) Red Blood Count 4.28 x10^6/uL (3.50-5.40) Hemoglobin 10.1 g/dL (12.0-15.5) Hematocrit 32.3 % (36.0-47.0) Mean Corpuscular Volume 76 fL (79-100) Mean Corpuscular Hemoglobin 24 pg (25-35) Mean Corpuscular Hemoglobin Concent 31 g/dL (31-37) Red Cell Distribution Width 20.5 % (11.5-14.5) Platelet Count 224 x10^3/uL (140-400) Neutrophils (%) (Auto) 69 % (31-73) Lymphocytes (%) (Auto) 17 % (24-48) Monocytes (%) (Auto) 11 % (0-9) Eosinophils (%) (Auto) 2 % (0-3) Basophils (%) (Auto) 1 % (0-3) Neutrophils # (Auto) 3.9 x10^3/uL (1.8-7.7) Lymphocytes # (Auto) 1.0 x10^3/uL (1.0-4.8) Monocytes # (Auto) 0.6 x10^3/uL (0.0-1.1) Eosinophils # (Auto) 0.1 x10^3/uL (0.0-0.7) Basophils # (Auto) 0.1 x10^3/uL (0.0-0.2) Sodium Level 139 mmol/L (136-145) Potassium Level 3.6 mmol/L (3.5-5.1) Chloride Level 102 mmol/L (98-107) Carbon Dioxide Level 32 mmol/L (21-32) Anion Gap 5 (6-14) Blood Urea Nitrogen 23 mg/dL (7-20) Creatinine 1.5 mg/dL (0.6-1.0) Estimated GFR (Cockcroft-Gault) 34.1 Glucose Level 93 mg/dL (70-99) Calcium Level 8.5 mg/dL (8.5-10.1) Glucose (Fingerstick) 84 mg/dL (70-99) Laboratory Tests Test 04/04/20 11:29 04/04/20 16:28 04/04/20 20:02 04/05/20 04:40 Glucose (Fingerstick) 212 mg/dL (70-99) 78 mg/dL (70-99) 183 mg/dL (70-99) White Blood Count 5.6 x10^3/uL (4.0-11.0) Red Blood Count 4.28 x10^6/uL (3.50-5.40) Hemoglobin 10.1 g/dL (12.0-15.5) Hematocrit 32.3 % (36.0-47.0) Mean Corpuscular Volume 76 fL (79-100) Mean Corpuscular Hemoglobin 24 pg (25-35) Mean Corpuscular Hemoglobin Concent 31 g/dL (31-37) Red Cell Distribution Width 20.5 % (11.5-14.5) Platelet Count 224 x10^3/uL (140-400) Neutrophils (%) (Auto) 69 % (31-73) Lymphocytes (%) (Auto) 17 % (24-48) Monocytes (%) (Auto) 11 % (0-9) Eosinophils (%) (Auto) 2 % (0-3) Basophils (%) (Auto) 1 % (0-3) Neutrophils # (Auto) 3.9 x10^3/uL (1.8-7.7) Lymphocytes # (Auto) 1.0 x10^3/uL (1.0-4.8) Monocytes # (Auto) 0.6 x10^3/uL (0.0-1.1) Eosinophils # (Auto) 0.1 x10^3/uL (0.0-0.7) Basophils # (Auto) 0.1 x10^3/uL (0.0-0.2) Sodium Level 139 mmol/L (136-145) Potassium Level 3.6 mmol/L (3.5-5.1) Chloride Level 102 mmol/L (98-107) Carbon Dioxide Level 32 mmol/L (21-32) Anion Gap 5 (6-14) Blood Urea Nitrogen 23 mg/dL (7-20) Creatinine 1.5 mg/dL (0.6-1.0) Estimated GFR (Cockcroft-Gault) 34.1 Glucose Level 93 mg/dL (70-99) Calcium Level 8.5 mg/dL (8.5-10.1) Test 04/05/20 08:05 Glucose (Fingerstick) 84 mg/dL (70-99) Medications Active Scripts Medications Dose Route/Sig Max Daily Dose Days Date Category Warfarin Sodium 3 Mg Tablet 3 Mg PO 1X 04/01/20 Reported Lasix (Furosemide) 20 Mg Tablet 1 Tab PO DAILY 30 04/01/20 Reported Warfarin Sodium 3 Mg Tablet 1 Tab PO DAILY 04/01/20 Reported Coumadin (Warfarin Sodium) 2.5 Mg Tablet 1 Each MC 1X WARF 03/02/20 Rx Vitamin C (Ascorbic Acid) 500 Mg Tablet 500 Mg PO DAILY 03/02/20 Rx Culturelle (Lactobacillus Rhamnosus Gg) 1 Each Cap.sprink 1 Cap PO BID 30 03/02/20 Rx Pantoprazole Sodium (Pantoprazole Sodium) 40 Mg Tablet.dr 40 Mg PO BIDAC 03/02/20 Rx Guaifenesin Dm Syrup (Guaifenesin/Dextromethorphan) 5 Ml Syrup 10 Ml PO PRN Q6HRS PRN 14 03/02/20 Rx Furosemide 40 Mg Tablet 40 Mg PO BID92 30 03/02/20 Rx Klor-Con M20 (Potassium Chloride) 20 Meq Tab.er.prt 20 Meq PO DAILYWBKFT 10 03/02/20 Rx Isosorbide Mononitrate Er (Isosorbide Mononitrate) 30 Mg Tab.er.24h 30 Mg PO DAILY 30 03/02/20 Rx Feosol (Ferrous Sulfate) 325 Mg Tablet 325 Mg PO TIDWMEALHC 30 03/02/20 Rx Augmentin 875-125 Tablet (Amoxicillin/Potassium Clav) 1 Each Tablet 1 Tab PO BID 7 03/02/20 Rx Entresto 97 mg-103 mg Tablet (Sacubitril/Valsartan) 1 Each Tablet 0.5 Each PO DAILY 02/18/20 Reported Aspirin 81 Mg Tab.chew 81 Mg PO DAILY 02/18/20 Reported Citalopram Hbr (Citalopram Hydrobromide) 20 Mg Tablet 1 Tab PO DAILY08 12/23/19 Reported Hydrocodone-Apap 7.5-325 (Hydrocodone Bit/Acetaminophen) 1 Tab Tablet 1 Tab PO Q4HRS PRN 12/23/19 Reported Amiodarone Hcl 200 Mg Tablet 1 Tab PO DAILY 12/23/19 Reported Colace (Docusate Sodium) 100 Mg Capsule 1 Cap PO BID 30 10/14/19 Rx Alprazolam 0.25 Mg Tablet 1 Tab PO BID PRN 10/02/19 Rx Montelukast Sodium Tablet (Montelukast Sodium) 10 Mg Tablet 10 Mg PO HS 11/30/17 Reported Levothyroxine Sodium 100 Mcg Tablet 1 Tab PO DAILY 05/26/16 Reported Proair Hfa Inhaler (Albuterol Sulfate) 8.5 Gm Hfa.aer.ad 2 Puff IH PRN Q4-6HRS 05/20/15 Reported Tylenol (Acetaminophen) 325 Mg Tablet 650 Mg PO 05/14/15 Reported Fenofibrate (Fenofibrate Nanocrystallized) 145 Mg Tablet 1 Tab PO DAILY 05/14/15 Reported Humalog (Insulin Lispro) 100 Unit/1 Ml Vial 15 Unit SQ TID 04/08/14 Reported Lantus Solostar (Insulin Glargine,Hum.rec.anlog) 100 Unit/1 Ml Insuln.pen 30 Unit SQ HS 04/08/14 Reported Pantoprazole Sodium (Pantoprazole Sodium) 40 Mg Tablet.dr 40 Mg PO DAILY 04/08/14 Reported Atorvastatin Calcium 40 Mg Tablet 40 Mg PO HS 04/08/14 Reported Gabapentin (Gabapentin) 100 Mg Capsule 100 Mg PO BID 04/08/14 Reported Comments CXR 04/01 1. Persistent right interstitial opacity in the lung base. Additionally there are new bilateral left greater than right pleural effusions. Impression . IMPRESSION: 1. Dyspnea with exertion for the last few days, likely related to acute on chronic systolic heart failure. The patient has history of pulmonary embolism and has been on Coumadin with therapeutic INR and clinically low suspicion for any recurrent thromboembolic disease-- resolved 2. The patient with history of pulmonary embolism in 2018, which was appropriately treated and once it was resolved she was taken off of anticoagulation. She also had an IVC filter, which was subsequently removed as well. 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 Her INR is therapeutic. 3. No significant tobacco history. 4. History of coronary artery disease with stents and ejection fraction of 20- 25%. 5. Morbid obesity. prob leo 6. Chronic kidney disease. Plan . RECOMMENDATIONS: 1. Continue with present oxygen at 3 liters, this is baseline oxygen requirement at home 2. Continue diuresis, monitor renal function and k 3. Follow cardiology recs 4. Continue with Coumadin for life. INR is therapeutic. We will keep the INR between 2 and 3. ok to D/C home today from our standpoint D/W RN, pt, WONG Salas MD Apr 05, 2020 10:43
--- NOTE | 2020-04-05 10:56 | NUR ---
SS following up with discharge planning. SS reviewed pt chart and discussed with pt RN. Pt transferred from [facility]. COVID19 negative. Pt is from home and is currently requiring oxygen. Pt has home oxygen. PT/OT recommended home with home healthcare. Pt declining home healthcare at this time. SS will continue to follow for discharge planning.
[2020-04-05 11:00] VITALS: BP 127/64
--- NOTE | 2020-04-05 12:50 | PDOC ---
SHWETA NUÑEZ MIXER WHIPPED TOPPING 04/05/20 1250: CARDIO Progress Notes Date and Time Date of Service 04/05/20 Time of Evaluation 1210 Subjective Subjective: No Chest Pain, No Palpitations, Other (SOA better) Vitals Vitals Vital Signs Date Time Temp Pulse Resp B/P (MAP) Pulse Ox O2 Delivery O2 Flow Rate FiO2 04/05/20 11:00 97.7 85 18 127/64 (85) 100 Nasal Cannula 3.0 97.7 Weight Weight [ ] Input and Output Intake and Output Intake and Output 04/05/20 07:00 Intake Total 1310 ml Output Total 2500 ml Balance -1190 ml Intake Oral 1310 ml Output Urine Total 2500 ml Laboratory Labs Laboratory Tests Test 04/04/20 16:28 04/04/20 20:02 04/05/20 04:40 04/05/20 08:05 Glucose (Fingerstick) 78 mg/dL (70-99) 183 mg/dL (70-99) 84 mg/dL (70-99) White Blood Count 5.6 x10^3/uL (4.0-11.0) Red Blood Count 4.28 x10^6/uL (3.50-5.40) Hemoglobin 10.1 g/dL (12.0-15.5) Hematocrit 32.3 % (36.0-47.0) Mean Corpuscular Volume 76 fL (79-100) Mean Corpuscular Hemoglobin 24 pg (25-35) Mean Corpuscular Hemoglobin Concent 31 g/dL (31-37) Red Cell Distribution Width 20.5 % (11.5-14.5) Platelet Count 224 x10^3/uL (140-400) Neutrophils (%) (Auto) 69 % (31-73) Lymphocytes (%) (Auto) 17 % (24-48) Monocytes (%) (Auto) 11 % (0-9) Eosinophils (%) (Auto) 2 % (0-3) Basophils (%) (Auto) 1 % (0-3) Neutrophils # (Auto) 3.9 x10^3/uL (1.8-7.7) Lymphocytes # (Auto) 1.0 x10^3/uL (1.0-4.8) Monocytes # (Auto) 0.6 x10^3/uL (0.0-1.1) Eosinophils # (Auto) 0.1 x10^3/uL (0.0-0.7) Basophils # (Auto) 0.1 x10^3/uL (0.0-0.2) Sodium Level 139 mmol/L (136-145) Potassium Level 3.6 mmol/L (3.5-5.1) Chloride Level 102 mmol/L (98-107) Carbon Dioxide Level 32 mmol/L (21-32) Anion Gap 5 (6-14) Blood Urea Nitrogen 23 mg/dL (7-20) Creatinine 1.5 mg/dL (0.6-1.0) Estimated GFR (Cockcroft-Gault) 34.1 Glucose Level 93 mg/dL (70-99) Calcium Level 8.5 mg/dL (8.5-10.1) Test 04/05/20 12:04 Glucose (Fingerstick) 193 mg/dL (70-99) Review of Systems Constitutional: yes: alert, oriented Ears/Nose/Throat: Yes: no symptom reported Eyes: Yes: no symptom reported Pulmonary: Yes dyspnea Cardiovascular: Yes no symptom reported Gastrointestional: Yes: no symptom reported Genitourinary: Yes: no symptom reported Musculoskeletal: Yes: no symptom reported Skin: Yes no symptom reported Psychiatric/Neurological: Yes: no symptom reported Endocrine: Yes: no symptom reported Physical Exam HEENT: Neck Supple W Full Motion Chest: Symmetric LUNGS: Other (diminished bases) Heart: RRR (SR) Abdomen: Soft N/T Extremities: No Edema, No Calf Tenderness Neurology: alert, oriented, follow commands Assessment Assessment 1. Acute on chronic respiratory failure with acute CHF 2. Acute on chronic combined systolic/diastolic CHF: appears compensated s/p IV diuresis 2. CAD: Clinically stable 3. 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 recent EF at 20-25% 4. Chronic anticoagulation: on coumadin 5. H/o VT with ICD discharge. On Amiodarone for rhythm maintenance. No acute events on tele 6. DM2/HLP: Continue current treatment 7. PAD: s/p percutaneous revascularization. stable, no claudications 8. MAURILIO on CKD3; cardiorenal 9. HTN: controlled 10. H/o PE s/p IVC filter. This was removed 02/18/20 12. S/p AICD ([place] A) Recommendations Lasix therapy Resume Entresto Hold imdur and now BB with low-end BP Secondary prevention measures Continue coumadin therapy Continue Amiodarone therapy for VT suppression Okay for discharge. F/u in our office with Dr. Bro as schedule. Justicifation of Admission Dx: Justifications for Admission: Justification of Admission Dx: Yes CATIE BRO MD 04/05/20 2030: CARDIO Progress Notes Assessment Assessment Patient seen and examined. Agree with RADIATION CONTROL WORKER's assessment and plan. Acute on chronic systolic HF better compensated Agree with resuming entresto CAD, PAD status clinically stable Tele did not show any significant arrhythmias Continue amiodarone for VT suppression OK for DC from cardiac standpoint, F/U with our office as scheduled. SHWETA NUÑEZ APRN Apr 05, 2020 12:50 CATIE BRO MD Apr 05, 2020 20:30
[2020-04-05 15:00] VITALS: BP 138/67
--- NOTE | 2020-04-05 15:25 | SNU/HH DC ---
DISCHARGE WITH HOME HEALTH DISCHARGE INFORMATION: Discharge Date: Apr 05, 2020 Final Diagnosis: Problems Medical Problems: (1) Dyspnea on exertion Status: Acute (2) Elevated brain natriuretic peptide (BNP) level Status: Acute (3) Person under investigation for COVID-19 Status: Acute Condition on Discharge: Stable CODE STATUS: Code Status: Full HOME HEALTH: Face to Face: I certify this patient is under my care and that I, or a nurse practitioner or helga campuzano's assistant office manager working with me, had a face to face encounter that meets the physician face to face encounter requirements with this patient on 04/05/2020. Medical Complications: CHF, COPD Senior Living For: Assess Cardiopulm Status, Medication Management RN For Eval/Treatment: Yes Physical Therapy For: Evalulation/Treatment Occupational Therapy For: Evaluation/Treatment Pt Meets Homebound Status: Extreme weakness w/ amb., Limited distance walking POST DISCHARGE ORDERS: Activity Instructions for Disc: Activity as tolerated Weight Bearing Status after Di: As tolerated Bathing Instructions: Shower-keep dressing dry, No Tub Bath until see DIET AFTER DISCHARGE: ADA Wound/Incision Care: No wound care needed CHECKS AFTER DISCHARGE: Checks after discharge: Check blood press - daily, Check blood sugar, ac/hs, Check your Temp as needed, Weigh Yourself Daily FOLLOW-UP: Follow up with: Dr. Bro May 13 @ 9:00 [phone] Follow Up With: Primary care provider in 2 weeks TREATMENT/EQUIPMENT ORDERS: Adaptive Equipment Issued: None Discharge Respiratory Equipmen: Oxygen CERTIFICATION STATEMENT: Certification Statement: Certification Statement: Based on the above finding, I certify that this patient is confined to the home and needs intermittent shelter care, physical therapy and/or speech therapy, or continues to need occupational therapy.~ This patient is under my care, and I have initiated the establishment of the plan of care.~ This patient will be followed by myself or a community physician who will periodically review the plan of care. Home Meds Active Scripts Warfarin Sodium (COUMADIN) 2.5 Mg Tablet, 1 EACH MC 1X WARF for PULMONARY EMBOLUS for 30 Days, #30 TAB Prov:FREDO WOO MD 03/02/20 Ascorbic Acid (VITAMIN C) 500 Mg Tablet, 500 MG PO DAILY for SUPPLEMENT for 30 Days, #30 TAB Prov:FREDO WOO MD 03/02/20 Pantoprazole Sodium (PANTOPRAZOLE SODIUM ) 40 Mg Tablet.dr, 40 MG PO BIDAC for SUPPLEMENT for 30 Days, #60 TAB.SR Prov:FREDO WOO MD 03/02/20 Potassium Chloride (KLOR-CON M20) 20 Meq Tab.er.prt, 20 MEQ PO DAILYWBKFT for SUPPLEMENT for 10 Days, #10 TAB.SR Prov:FREDO WOO MD 03/02/20 Ferrous Sulfate (FEOSOL) 325 Mg Tablet, 325 MG PO TIDWMEALHC for ANEMIA for 30 Days, #120 TAB Prov:FREDO WOO MD 03/02/20 Docusate Sodium (COLACE) 100 Mg Capsule, 1 CAP PO BID for constipation for 30 Days, #60 CAP 0 Refills Prov:CHIOMA CANCHOLA MD 10/14/19 Alprazolam (ALPRAZOLAM) 0.25 Mg Tablet, 1 TAB PO BID PRN for ANXIETY / AGITATION, #30 TAB Prov:JOSE M MACKAY MD 10/02/19 Reported Medications Warfarin Sodium (WARFARIN SODIUM) 3 Mg Tablet, 3 MG PO 1X for anticoag, #30 TAB 04/01/20 Warfarin Sodium (WARFARIN SODIUM) 3 Mg Tablet, 1 TAB PO DAILY for anticoag 04/01/20 Sacubitril/Valsartan (Entresto 97 mg-103 mg Tablet) 1 Each Tablet, 0.5 EACH PO DAILY for , TAB 02/18/20 Aspirin (ASPIRIN) 81 Mg Tab.chew, 81 MG PO DAILY for , TAB.CHEW 02/18/20 Citalopram Hydrobromide (CITALOPRAM HBR) 20 Mg Tablet, 1 TAB PO DAILY08 for depression, #30 TAB 5 Refills 12/23/19 Hydrocodone Bit/Acetaminophen (HYDROCODONE-APAP 7.5-325 ) 1 Tab Tablet, 1 TAB PO Q4HRS PRN for PAIN, TAB 0 Refills 12/23/19 Amiodarone Hcl (AMIODARONE HCL) 200 Mg Tablet, 1 TAB PO DAILY for hypertension, #90 TAB 1 Refill 12/23/19 Montelukast Sodium (MONTELUKAST SODIUM TABLET ) 10 Mg Tablet, 10 MG PO HS for FOR ASTHMA, #30 TAB 0 Refills 11/30/17 Levothyroxine Sodium (LEVOTHYROXINE SODIUM) 100 Mcg Tablet, 1 TAB PO DAILY, #30 TAB 5 Refills 05/26/16 Albuterol Sulfate (PROAIR HFA INHALER) 8.5 Gm Hfa.aer.ad, 2 PUFF IH PRN Q4-6HRS, #1 INHALER 05/20/15 Acetaminophen (TYLENOL) 325 Mg Tablet, 650 MG PO 05/14/15 Fenofibrate Nanocrystallized (FENOFIBRATE) 145 Mg Tablet, 1 TAB PO DAILY for , #30 TAB 5 Refills 05/14/15 Insulin Lispro (HUMALOG) 100 Unit/1 Ml Vial, 15 UNIT SQ TID for dm, VIAL 04/08/14 Insulin Glargine,Hum.rec.anlog (LANTUS SOLOSTAR) 100 Unit/1 Ml Insuln.pen, 30 UNIT SQ HS for dm, SYR 04/08/14 Atorvastatin Calcium (ATORVASTATIN CALCIUM) 40 Mg Tablet, 40 MG PO HS for FOR CHOLESTEROL, #30 TAB 0 Refills 04/08/14 Gabapentin (GABAPENTIN ) 100 Mg Capsule, 100 MG PO BID for , CAP 04/08/14 Discontinued Reported Medications Furosemide (LASIX) 20 Mg Tablet, 1 TAB PO DAILY for diuretic for 30 Days, #30 TAB 0 Refills 04/01/20 Pantoprazole Sodium (PANTOPRAZOLE SODIUM ) 40 Mg Tablet.dr, 40 MG PO DAILY for , TAB 04/08/14 Warfarin Sodium (COUMADIN) 1 Mg Tablet, 3 MG PO DAILY for blood clots, #30 TAB 04/01/20 Discontinued Scripts Lactobacillus Rhamnosus Gg (CULTURELLE) 1 Each Cap.sprink, 1 CAP PO BID for SUPPLEMENT for 30 Days, #60 CAP Prov:FREDO WOO MD 03/02/20 Guaifenesin/Dextromethorphan (GUAIFENESIN DM SYRUP) 5 Ml Syrup, 10 ML PO PRN Q6HRS PRN for COUGH for 14 Days, #240 MISC Prov:FREDO WOO MD 03/02/20 Furosemide (FUROSEMIDE) 40 Mg Tablet, 40 MG PO BID92 for HEART FAILURE for 30 Days, #60 TAB Prov:FREDO WOO MD 03/02/20 Isosorbide Mononitrate (ISOSORBIDE MONONITRATE ER) 30 Mg Tab.er.24h, 30 MG PO DAILY for CHOLESTEROL for 30 Days, #30 TAB.SR Prov:FREDO WOO MD 03/02/20 Amoxicillin/Potassium Clav (AUGMENTIN 875-125 TABLET) 1 Each Tablet, 1 TAB PO BID for PNEUMONIA for 7 Days, #14 TAB 0 Refills Prov:FREDO WOO MD 03/02/20 GINA PATEL MD Apr 05, 2020 15:25
[2020-04-05] MEDS ORDERED: TORS20TA2 PO (15:27)
--- NOTE | 2020-04-05 15:30 | PDOC3 ---
Discharge Summary Visit Information Date of Admission: Mar 31, 2020 Date of Discharge: Apr 05, 2020 Admitting Diagnosis: Acute CHF Final Diagnosis Problems Medical Problems: (1) Dyspnea on exertion Status: Acute (2) Elevated brain natriuretic peptide (BNP) level Status: Acute (3) Person under investigation for COVID-19 Status: Acute Brief Hospital Course Allergies Allergies Coded Allergies Type Severity Reaction Last Updated Verified insulin glargine Allergy Severe "swelling", hospitalized [facility] 09/27/19 Yes Vital Signs Vital Signs Date Time Temp Pulse Resp B/P (MAP) Pulse Ox O2 Delivery O2 Flow Rate FiO2 04/05/20 15:00 97.7 86 18 138/67 (90) 100 Nasal Cannula 3.0 97.7 Lab Results Laboratory Tests Test 04/03/20 15:46 04/03/20 19:46 04/04/20 06:40 04/04/20 07:34 Glucose (Fingerstick) 176 mg/dL (70-99) 93 mg/dL (70-99) 107 mg/dL (70-99) White Blood Count 6.6 x10^3/uL (4.0-11.0) Red Blood Count 4.50 x10^6/uL (3.50-5.40) Hemoglobin 10.6 g/dL (12.0-15.5) Hematocrit 33.8 % (36.0-47.0) Mean Corpuscular Volume 75 fL (79-100) Mean Corpuscular Hemoglobin 24 pg (25-35) Mean Corpuscular Hemoglobin Concent 31 g/dL (31-37) Red Cell Distribution Width 20.2 % (11.5-14.5) Platelet Count 249 x10^3/uL (140-400) Neutrophils (%) (Auto) 77 % (31-73) Lymphocytes (%) (Auto) 12 % (24-48) Monocytes (%) (Auto) 9 % (0-9) Eosinophils (%) (Auto) 1 % (0-3) Basophils (%) (Auto) 1 % (0-3) Neutrophils # (Auto) 5.0 x10^3/uL (1.8-7.7) Lymphocytes # (Auto) 0.8 x10^3/uL (1.0-4.8) Monocytes # (Auto) 0.6 x10^3/uL (0.0-1.1) Eosinophils # (Auto) 0.1 x10^3/uL (0.0-0.7) Basophils # (Auto) 0.1 x10^3/uL (0.0-0.2) Prothrombin Time 26.3 SEC (11.7-14.0) Prothromb Time International Ratio 2.4 (0.8-1.1) Sodium Level 139 mmol/L (136-145) Potassium Level 4.2 mmol/L (3.5-5.1) Chloride Level 101 mmol/L (98-107) Carbon Dioxide Level 32 mmol/L (21-32) Anion Gap 6 (6-14) Blood Urea Nitrogen 24 mg/dL (7-20) Creatinine 1.5 mg/dL (0.6-1.0) Estimated GFR (Cockcroft-Gault) 34.1 Glucose Level 110 mg/dL (70-99) Calcium Level 8.5 mg/dL (8.5-10.1) Test 04/04/20 11:29 04/04/20 16:28 04/04/20 20:02 04/05/20 04:40 Glucose (Fingerstick) 212 mg/dL (70-99) 78 mg/dL (70-99) 183 mg/dL (70-99) White Blood Count 5.6 x10^3/uL (4.0-11.0) Red Blood Count 4.28 x10^6/uL (3.50-5.40) Hemoglobin 10.1 g/dL (12.0-15.5) Hematocrit 32.3 % (36.0-47.0) Mean Corpuscular Volume 76 fL (79-100) Mean Corpuscular Hemoglobin 24 pg (25-35) Mean Corpuscular Hemoglobin Concent 31 g/dL (31-37) Red Cell Distribution Width 20.5 % (11.5-14.5) Platelet Count 224 x10^3/uL (140-400) Neutrophils (%) (Auto) 69 % (31-73) Lymphocytes (%) (Auto) 17 % (24-48) Monocytes (%) (Auto) 11 % (0-9) Eosinophils (%) (Auto) 2 % (0-3) Basophils (%) (Auto) 1 % (0-3) Neutrophils # (Auto) 3.9 x10^3/uL (1.8-7.7) Lymphocytes # (Auto) 1.0 x10^3/uL (1.0-4.8) Monocytes # (Auto) 0.6 x10^3/uL (0.0-1.1) Eosinophils # (Auto) 0.1 x10^3/uL (0.0-0.7) Basophils # (Auto) 0.1 x10^3/uL (0.0-0.2) Sodium Level 139 mmol/L (136-145) Potassium Level 3.6 mmol/L (3.5-5.1) Chloride Level 102 mmol/L (98-107) Carbon Dioxide Level 32 mmol/L (21-32) Anion Gap 5 (6-14) Blood Urea Nitrogen 23 mg/dL (7-20) Creatinine 1.5 mg/dL (0.6-1.0) Estimated GFR (Cockcroft-Gault) 34.1 Glucose Level 93 mg/dL (70-99) Calcium Level 8.5 mg/dL (8.5-10.1) Test 04/05/20 08:05 04/05/20 12:04 Glucose (Fingerstick) 84 mg/dL (70-99) 193 mg/dL (70-99) Laboratory Tests Test 04/04/20 16:28 04/04/20 20:02 04/05/20 04:40 04/05/20 08:05 Glucose (Fingerstick) 78 mg/dL (70-99) 183 mg/dL (70-99) 84 mg/dL (70-99) White Blood Count 5.6 x10^3/uL (4.0-11.0) Red Blood Count 4.28 x10^6/uL (3.50-5.40) Hemoglobin 10.1 g/dL (12.0-15.5) Hematocrit 32.3 % (36.0-47.0) Mean Corpuscular Volume 76 fL (79-100) Mean Corpuscular Hemoglobin 24 pg (25-35) Mean Corpuscular Hemoglobin Concent 31 g/dL (31-37) Red Cell Distribution Width 20.5 % (11.5-14.5) Platelet Count 224 x10^3/uL (140-400) Neutrophils (%) (Auto) 69 % (31-73) Lymphocytes (%) (Auto) 17 % (24-48) Monocytes (%) (Auto) 11 % (0-9) Eosinophils (%) (Auto) 2 % (0-3) Basophils (%) (Auto) 1 % (0-3) Neutrophils # (Auto) 3.9 x10^3/uL (1.8-7.7) Lymphocytes # (Auto) 1.0 x10^3/uL (1.0-4.8) Monocytes # (Auto) 0.6 x10^3/uL (0.0-1.1) Eosinophils # (Auto) 0.1 x10^3/uL (0.0-0.7) Basophils # (Auto) 0.1 x10^3/uL (0.0-0.2) Sodium Level 139 mmol/L (136-145) Potassium Level 3.6 mmol/L (3.5-5.1) Chloride Level 102 mmol/L (98-107) Carbon Dioxide Level 32 mmol/L (21-32) Anion Gap 5 (6-14) Blood Urea Nitrogen 23 mg/dL (7-20) Creatinine 1.5 mg/dL (0.6-1.0) Estimated GFR (Cockcroft-Gault) 34.1 Glucose Level 93 mg/dL (70-99) Calcium Level 8.5 mg/dL (8.5-10.1) Test 04/05/20 12:04 Glucose (Fingerstick) 193 mg/dL (70-99) Brief Hospital Course Ms Rodriguez is a 70 yo F w/ PMHx cardiomyopathy with an EF of 20-25%, pulmonary embolism s/p IVC filter, which was removed as well. She was readmitted in February and was found to have abnormal V/Q scan consistent with a fowrnfqe-gt-guqc probability for pulmonary embolism. She was restarted back on her anticoagulation. She was brought into the hospital after she was complaining of increasing shortness of breath. Normally, she is on home oxygen at 3 liters on a 24-hour basis. She denies any chest pain, but did feel lightheaded and dizzy. The patient had lower extremity edema, which is stated that it is improving. No cough, no fever, no chills. Her chest x-ray was reviewed. She still has mild residual congestive heart failure. Seen by pulmonology and cardiology put on IV Lasix with great improvement in significant weight loss, transition to oral torsemide. Problem list: Acute on chronic hypoxic respiratory failure due to acute on chronic systolic/diastolic CHF 20-25% and severe COPD exacerbation CAD status post stenting Severe cardiomyopathy Chronic anticoagulation: on coumadin INR at 2.3 H/o VT with ICD discharge. On Amiodarone for rhythm maintenance No ILD from r ecent imaging PAD - s/p percutaneous revascularization. stable, no claudications H/o PE s/p IVC filter. This was removed 02/18/20 Acute on chronic renal failure due to possible Lasix use and Entresto; possible cardiorenal DM Anemia due to chronic kidney disease HTN Hypothyroidism Greater than 30 minutes spent on d/c Discharge Information Condition at Discharge: Improved Follow Up: Weeks Disposition/Orders: D/C to Home w/ HH Scheduled Albuterol Sulfate (Proair Hfa Inhaler) 8.5 Gm Hfa.aer.ad, 2 PUFF IH PRN Q4-6HRS, #1 (Reported) Entered as Reported by: Lise Tobin on 05/20/15 1429 Last Action: Reviewed on 04/01/20 0048 by Celia De Guzman Amiodarone Hcl (Amiodarone Hcl) 200 Mg Tablet, 1 TAB PO DAILY for hypertension, #90 Ref 1 (Reported) Entered as Reported by: OBI GLOVER on 12/23/19 0020 Last Action: Continued on 04/01/20 0717 by Celia De Guzman Ascorbic Acid (Vitamin C) 500 Mg Tablet, 500 MG PO DAILY for SUPPLEMENT for 30 Days, #30 Prescribed by: FREDO WOO MD on 03/02/20 1425 Last Action: Continued on 04/01/20 0657 by Celia De Guzman Aspirin (Aspirin) 81 Mg Tab.chew, 81 MG PO DAILY for , (Reported) Entered as Reported by: ROSMERY PENA on 02/18/20 0854 Last Action: Continued on 04/01/20 0657 by Celia De Guzman Atorvastatin Calcium (Atorvastatin Calcium) 40 Mg Tablet, 40 MG PO HS for FOR CHOLESTEROL, #30 Ref 0 (Reported) Entered as Reported by: ANY VILLANUEVA on 04/08/14 1121 Last Action: Continued on 04/01/20656 by Celia De Guzman Citalopram Hydrobromide (Citalopram Hbr) 20 Mg Tablet, 1 TAB PO DAILY08 for depression, #30 Ref 5 (Reported) Entered as Reported by: OBI GLOVER on 12/23/19 0020 Last Action: Continued on 04/01/20656 by Celia De Guzman Docusate Sodium (Colace) 100 Mg Capsule, 1 CAP PO BID for constipation for 30 Days, #60 Ref 0 Prescribed by: SUSHANT BEDOLLA on 10/14/19 0933 Last Action: Continued on 04/01/20656 by Celia De Guzman Fenofibrate Nanocrystallized (Fenofibrate) 145 Mg Tablet, 1 TAB PO DAILY for , #30 Ref 5 (Reported) Entered as Reported by: JUAN CARLOS PINEDA on 05/14/15 0906 Last Action: Converted on 04/01/20656 by Celia De Guzman Ferrous Sulfate (Feosol) 325 Mg Tablet, 325 MG PO TIDWMEALHC for ANEMIA for 30 Days, #120 Prescribed by: FREDO WOO MD on 03/02/20 1425 Last Action: Continued on 04/01/20656 by Celia De Guzman Gabapentin (Gabapentin ) 100 Mg Capsule, 100 MG PO BID for , (Reported) Entered as Reported by: ANY VILLANUEVA on 04/08/141120 Last Action: Continued on 04/01/20656 by Celia De Guzman Insulin Glargine,Hum.rec.anlog (Lantus Solostar) 100 Unit/1 Ml Insuln.pen, 30 UNIT SQ HS for dm, (Reported) Entered as Reported by: ANY VILLANUEVA on 04/08/141120 Last Action: Converted on 04/01/20716 by Celia De Guzman Insulin Lispro (Humalog) 100 Unit/1 Ml Vial, 15 UNIT SQ TID for dm, (Reported) Entered as Reported by: ANY VILLANUEVA on 04/08/141120 Last Action: Continued on 04/01/20716 by Celia De Guzman Levothyroxine Sodium (Levothyroxine Sodium) 100 Mcg Tablet, 1 TAB PO DAILY, #30 Ref 5 (Reported) Entered as Reported by: TANMAY CUADRA on 05/26/16 0644 Last Action: Continued on 04/01/20656 by Celia De Guzman Montelukast Sodium (Montelukast Sodium Tablet ) 10 Mg Tablet, 10 MG PO HS for FOR ASTHMA, #30 Ref 0 (Reported) Entered as Reported by: ROSMERY PENA on 11/30/17 0720 Last Action: Continued on 04/01/20656 by Celia De Guzman Pantoprazole Sodium (Pantoprazole Sodium ) 40 Mg Tablet.dr, 40 MG PO BIDAC for SUPPLEMENT for 30 Days, #60 Prescribed by: FREDO WOO MD on 03/02/201424 Last Action: Continued on 04/01/20656 by Celia De Guzman Potassium Chloride (Klor-Con M20) 20 Meq Tab.er.prt, 20 MEQ PO DAILYWBKFT for SUPPLEMENT for 10 Days, #10 Prescribed by: FREDO WOO MD on 03/02/201424 Last Action: Continued on 04/01/20656 by Celia De Guzman Sacubitril/Valsartan (Entresto 97 mg-103 mg Tablet) 1 Each Tablet, 0.5 EACH PO DAILY for , (Reported) Entered as Reported by: ROSMERY PENA on 02/18/20 0854 Last Action: Converted on 04/01/20656 by Celia De Guzman Torsemide (Torsemide) 20 Mg Tablet, 1 TAB PO DAILY for CHF for 30 Days, #30 Ref 2 Prescribed by: GINA PATEL MD on 04/05/20 1527 Warfarin Sodium (Coumadin) 2.5 Mg Tablet, 1 EACH MC 1X WARF for PULMONARY EMBOLUS for 30 Days, #30 Prescribed by: FREDO WOO MD on 03/02/20 142 Warfarin Sodium (Warfarin Sodium) 3 Mg Tablet, 1 TAB PO DAILY for anticoag, (Reported) Entered as Reported by: Celia De Guzman on 04/01/2047 Last Action: Continued on 04/01/202145 by Celia De Guzman Warfarin Sodium (Warfarin Sodium) 3 Mg Tablet, 3 MG PO 1X for anticoag, #30 (Reported) Entered as Reported by: Celia De Guzman on 04/01/202145 Last Action: New Order on 04/01/202145 by Celia De Guzman Scheduled PRN Alprazolam (Alprazolam) 0.25 Mg Tablet, 1 TAB PO BID PRN for ANXIETY / AGITATION, #30 Prescribed by: JOSE M MACKAY on 10/02/19 1351 Last Action: Continued on 04/01/20 06 by Celia De Guzman Hydrocodone Bit/Acetaminophen (Hydrocodone-Apap 7.5-325 ) 1 Tab Tablet, 1 TAB PO Q4HRS PRN for PAIN, Ref 0 (Reported) Entered as Reported by: OBI GLOVER on 12/23/19 0020 Last Action: Continued on 04/01/20 06 by Celia De Guzman Miscellaneous Medications Acetaminophen (Tylenol) 325 Mg Tablet, 650 MG PO, (Reported) Entered as Reported by: JUAN CARLOS PINEDA on 05/14/15 0919 Last Action: Continued on 04/01/20 0717 by Celia De Guzman Discontinued Medications Amoxicillin/Potassium Clav (Augmentin 875-125 Tablet) 1 Each Tablet, 1 TAB PO BID for PNEUMONIA for 7 Days, #14 Ref 0 Prescribed by: FREDO WOO MD on 03/02/20 1425 Furosemide (Furosemide) 40 Mg Tablet, 40 MG PO BID92 for HEART FAILURE for 30 Days, #60 Prescribed by: FREDO WOO MD on 03/02/20 1425 Furosemide (Lasix) 20 Mg Tablet, 1 TAB PO DAILY for diuretic for 30 Days, #30 Ref 0 (Reported) Entered as Reported by: Celia De Guzman on 04/01/20 004 Last Action: New Order on 04/01/2047 by Celia De Guzman Guaifenesin/Dextromethorphan (Guaifenesin Dm Syrup) 5 Ml Syrup, 10 ML PO PRN Q6HRS PRN for COUGH for 14 Days, #240 Prescribed by: FREDO WOO MD on 03/02/20 1425 Isosorbide Mononitrate (Isosorbide Mononitrate Er) 30 Mg Tab.er.24h, 30 MG PO DAILY for CHOLESTEROL for 30 Days, #30 Prescribed by: FREDO WOO MD on 03/02/20 1425 Lactobacillus Rhamnosus Gg (Culturelle) 1 Each Cap.sprink, 1 CAP PO BID for SUPPLEMENT for 30 Days, #60 Prescribed by: FREDO WOO MD on 03/02/20 1425 Pantoprazole Sodium (Pantoprazole Sodium ) 40 Mg Tablet.dr, 40 MG PO DAILY for , (Reported) Entered as Reported by: ANY VILLANUEVA on 04/08/14 1121 Warfarin Sodium (Coumadin) 1 Mg Tablet, 3 MG PO DAILY for blood clots, #30 (Reported) Entered as Reported by: RACHELE SWIFT on 04/01/20 0020 Last Taken: 3 on 03/31/20 0800 Last Action: Discontinued on 04/01/20 0023 by RACHELE SWIFT Justicifation of Admission Dx: Justifications for Admission: Justification of Admission Dx: Yes GINA PATEL MD Apr 05, 2020 15:30
--- NOTE | 2020-04-05 16:00 | NUR ---
Discharge Note: VALENTINO SINGH [address] Discharge instructions and discharge home medications reviewed with Patient and a copy given. All questions have been answered and understanding verbalized. The following instructions and handouts were given: Torsemide Patient discharged to home with self care via wheelchair
== END 2020-04-05 16:00 | disposition home or self-care (01) | DRG 291 ==
LOC: ER 19:43 → 6 SOUTH 22:30 → 2 NORTH 04-02 07:49
PROVIDERS: ADMIT Internal Medicine; ATTEND Internal Medicine
DX: I13.0 Hypertensive heart and chronic kidney disease with heart failure and stage 1 through stage 4 chronic kidney disease, or unspecified chronic kidney disease (principal); I50.43 Acute on chronic combined systolic (congestive) and diastolic (congestive) heart failure; J96.21 Acute and chronic respiratory failure with hypoxia; N17.9 Acute kidney failure, unspecified; J44.1 Chronic obstructive pulmonary disease with (acute) exacerbation; I42.9 Cardiomyopathy, unspecified; Z20.828 Contact with and (suspected) exposure to other viral communicable diseases; F41.9 Anxiety disorder, unspecified; K21.9 Gastro-esophageal reflux disease without esophagitis; M19.90 Unspecified osteoarthritis, unspecified site; K57.90 Diverticulosis of intestine, part unspecified, without perforation or abscess without bleeding; D50.9 Iron deficiency anemia, unspecified; D63.1 Anemia in chronic kidney disease; E03.9 Hypothyroidism, unspecified; E11.22 Type 2 diabetes mellitus with diabetic chronic kidney disease; E11.42 Type 2 diabetes mellitus with diabetic polyneuropathy; E66.01 Morbid (severe) obesity due to excess calories; E78.00 Pure hypercholesterolemia, unspecified; E78.5 Hyperlipidemia, unspecified; I25.10 Atherosclerotic heart disease of native coronary artery without angina pectoris; I27.20 Pulmonary hypertension, unspecified; I48.0 Paroxysmal atrial fibrillation; N18.3 Chronic kidney disease, stage 3 (moderate); Z79.01 Long term (current) use of anticoagulants; Z82.49 Family history of ischemic heart disease and other diseases of the circulatory system; Z68.35 Body mass index [BMI] 35.0-35.9, adult; Z85.3 Personal history of malignant neoplasm of breast; Z87.01 Personal history of pneumonia (recurrent); I25.2 Old myocardial infarction; Z86.711 Personal history of pulmonary embolism; Z87.891 Personal history of nicotine dependence; Z90.12 Acquired absence of left breast and nipple; Z90.49 Acquired absence of other specified parts of digestive tract; Z90.710 Acquired absence of both cervix and uterus; Z90.89 Acquired absence of other organs; Z95.5 Presence of coronary angioplasty implant and graft; Z95.810 Presence of automatic (implantable) cardiac defibrillator; Z95.828 Presence of other vascular implants and grafts; Z88.0 Allergy status to penicillin; E11.51 Type 2 diabetes mellitus with diabetic peripheral angiopathy without gangrene
CPT/HCPCS: 36415; 71045; 80048; 80053; 82962; 83605; 83735; 83880; 84484; 85025; 85379; 85610; 85730; 93005; 99285; J1756; J1815; J1940; J7050; 97530-GP; G0378; J7030; U0003-CS

== ENCOUNTER → 2020-05-24 | Outpatient (CLI) | payer MEDICARE, BC ==
[2020-04-16 09:03] VITALS: BP 148/69
[~2020-05-24] MED LIST changes: +FURO-69 PO; +TORS20TA2 PO; +WARF1TAB2 PO; +WARF3TAB50 PO
--- NOTE | 2020-05-24 17:06 | RAD ---
CT scan of the chest without contrast 05/24/2020 CLINICAL HISTORY: Chronic respiratory failure. TECHNIQUE: Unenhanced, contiguous, 5 mm axial sections were obtained through the chest and upper abdomen. One or more of the following individualized dose reduction techniques were utilized for this study: 1. Automated exposure control. 2. Adjustment of the mA and/or kV according to patient size. 3. Use of iterative reconstruction technique. FINDINGS: Comparison study is dated 02/25/2020. Additional comparison is made to the patient's portable chest radiograph dated 04/01/2020. A right-sided pacemaker/defibrillator is unchanged in position. Atherosclerotic calcification of the thoracic aorta and its branches is seen. The thoracic aorta is mildly tortuous but tapers normally. The heart is mildly enlarged. Extensive coronary artery calcifications are noted. Slightly prominent mediastinal lymph nodes are seen which measure 5 mm to 1.6 cm in size. These have decreased in size since the previous study where they measured 8 mm to 2.1 cm. There are small to moderate-sized bilateral pleural effusions which have increased in size since the previous study. Areas of subsegmental atelectasis are seen involving the inferior lingula, the left lower lobe and the right lower lobe. Hazy perihilar groundglass attenuation infiltrates are seen involving both lungs which likely reflect pulmonary edema from CHF. No pneumothorax is noted. Images through the upper abdomen demonstrate surgical clips within the gallbladder fossa consistent with a cholecystectomy. The osseous structures are unchanged. IMPRESSION: Small to moderate-sized bilateral pleural effusions which have increased since the previous study. Perihilar groundglass attenuation infiltrates are seen involving both lungs which likely reflect pulmonary edema from CHF. Electronically signed by: Tl Bautista MD (05/24/2020 5:03 PM) [id number]
== END | disposition home or self-care (01) ==
LOC: CT 10:53
PROVIDERS: ATTEND Internal Medicine Pulmonary Disease
DX: J96.10 Chronic respiratory failure, unspecified whether with hypoxia or hypercapnia (principal); J98.11 Atelectasis; Q25.46 Tortuous aortic arch; J90 Pleural effusion, not elsewhere classified; I25.10 Atherosclerotic heart disease of native coronary artery without angina pectoris; Z95.0 Presence of cardiac pacemaker
CPT/HCPCS: 71250

== ENCOUNTER → 2021-01-28 | Outpatient (CLI) | payer MEDICARE, BC ==
[2020-06-24 15:00] VITALS: BP 119/62
[~2021-01-28] MED LIST changes: -AMIO200T4 PO; +AMIO200T6 PO; +BUME1TAB3 PO; -ISOS30TA4 PO; +ISOS30TA68 PO; -LISI-338 PO; +LISI-517 PO
[2021-01-28 11:52] LABS: BASO % 1 % (0-3); EOS % 1 % (0-3); HEMATOCRIT 43.2 % (36.0-47.0); HEMOGLOBIN 14.1 g/dL (12.0-15.5); LYMPH # 0.7 x10^3/uL (1.0-4.8); LYMPH % 10 % (24-48); MEAN CORPUSCULAR HEMOGLOBIN 29 pg (25-35); MEAN CORPUSCULAR HGB CONC 33 g/dL (31-37); MEAN CORPUSCULAR VOLUME 89 fL (79-100); MONO # 0.5 x10^3/uL (0.0-1.1); MONO % 7 % (0-9); NEUT # 5.4 x10^3/uL (1.8-7.7); NEUT % 82 % (31-73); PLATELET COUNT 173 x10^3/uL (140-400); RED BLOOD COUNT 4.84 x10^6/uL (3.50-5.40); RED CELL DISTRIBUTION WIDTH 15.7 % (11.5-14.5); WHITE BLOOD COUNT 6.6 x10^3/uL (4.0-11.0)
[2021-01-28 12:07] LABS: ALBUMIN 3.8 g/dL (3.4-5.0); ALBUMIN/GLOBULIN RATIO 1.2 (1.0-1.7); CALCIUM 8.6 mg/dL (8.5-10.1); CREATININE 1.7 mg/dL (0.6-1.0); GFR 29.5; POTASSIUM 4.2 mmol/L (3.5-5.1); TOTAL BILIRUBIN 0.6 mg/dL (0.2-1.0)
== END ==
LOC: ONCLAB 10:53
PROVIDERS: ATTEND Internal Medicine Hematology & Oncology
DX: C50.012 Malignant neoplasm of nipple and areola, left female breast (principal)
CPT/HCPCS: 36415; 80053; 85025

== ENCOUNTER 2021-05-30 07:07 | Outpatient (CLI) | payer MEDICARE, BC ==
[~2021-05-30] VITALS: Ht 160 cm; Wt 93.0 kg
[2021-05-30] VITALS (9 sets, daily range): BP systolic 112–151; BP diastolic 60–83
[~2021-05-30 07:07] MED LIST changes: +CHOL100014 PO; +FURO-68 PO; +FURO80TA3 PO; +POTA-121 PO; -POTA20TA4 PO; +WARF2.5T71 PO
[2021-05-30] MEDS ORDERED: IODIXANOL 320 MG/ML 100 ML VIAL. ONE (07:39)
[2021-05-30 07:42] LABS: CREATININE 1.4 mg/dL (0.6-1.0); GFR 36.9; POTASSIUM 3.3 mmol/L (3.5-5.1)
[2021-05-30 07:45] LABS: PROTHROMBIN TIME PATIENT 15.6 SEC (11.7-14.0)
[2021-05-30] MEDS ORDERED: MIDAZOLAM HCL/PF 5 MG/5 ML VIAL. ONE (08:10)
[2021-05-30] MEDS ORDERED: fentaNYL PF VIAL 100 MCG/2 ML VIAL ONE (08:10)
[2021-05-30] MEDS ORDERED: LIDOCAINE 1% Multi-Dose 20 ML VIAL. ONE (08:36)
[2021-05-30] MEDS ORDERED: MIDAZOLAM HCL/PF 5 MG/5 ML VIAL. IV ONE (09:15)
[2021-05-30] MEDS ORDERED: IODIXANOL 320 MG/ML 100 ML VIAL. IART ONE (09:15)
[2021-05-30] MEDS ORDERED: fentaNYL PF VIAL 100 MCG/2 ML VIAL IV ONE (09:15)
[2021-05-30] MEDS ORDERED: FUROSEMIDE 40 MG/4 ML VIAL. IVP ONE (09:30)
[2021-05-30] MEDS ORDERED: CONTRAST GIVEN. MC PRN (09:30)
[2021-05-30] MEDS ORDERED: LIDOCAINE 1% Multi-Dose 20 ML VIAL. INJ ONE (09:30)
--- NOTE | 2021-05-30 09:32 | PDOC ---
MODERATE SEDATION ASSESSMENT RISKS/ALTERNATIVES Risks/Alternatives Risks and alternatives of this type of sedation and procedure discussed with: RISK/ALTERNATIVES: Patient H & P ON CHART H & P H & P on chart and reviewed for co-morbid conditions and appropriate labs. H&P ON CHART: Yes STATUS PREG STATUS ASSESSED: N/A MEDS/ALLERGIES REVIEWED Meds/Allergies Reviewed Medications and Allergies including time and route of recently administered narcotics and sedatives. MEDS/ALLERGIES REVIEWED: Yes ASA RATING ASA RATING: III AIRWAY ASSESSMENT Airway Assessment Airway patency, oral function limitations, presence of caps, crowns, dentures, partials, and ability to extend neck assessed. AIRWAY ASSESSMENT: Yes MALLAMPATI SCORE MALLAMPATI SCORE: II PRE-SEDATION ASSESSMENT PRE-SEDATION ASSESSMENT: Yes CATIE LÓPEZ MD May 30, 2021 09:32
--- NOTE | 2021-05-30 11:17 | CARD ---
MR#: [id number] Date of Study: 05/30/2021 Ordering Physician: CATIE BRO, Referring Physician: CATIE BRO, Tech: RT Mike(R) APPROVED REPORT Technologist: RT Mike(R) Nurse: Bobbi Mariano RN Procedure(s) performed: Right and left heart catheterization, selective coronary angiography MODERATE SEDATION TIME:46 MINUTES FLUORO TIME: 3.9 MIN DOSE: 47.2 GYCM2 CONTRAST: 80CC VISI INDICATION The indication(s) include : Refractory dyspnea on exertion, cardiomyopathy, coronary artery disease. [facility] Clinical Frailty Scale [facility] Clinical Frailty Scale: Moderately Frail Heart Failure Heart Failure: Yes If Yes, Newly Diagnosed: No If Yes, HF Type: Systolic If Yes, NYHA Class: Class II CASE TECHNIQUE IV conscious sedation was used throughout procedure with appropriate monitoring and was performed in the presence of a registered nurse who was an independent trained observer other than the physician p erforming the procedure. During this case, Fluoroscopy and low osmolar contrast were used for imaging . Specimen(s) Removed: No Estimated Blood loss: 20 cc's. PROCEDURE NARRATIVE After explaining the risk, benefits and alternative options, informed consent was obtained from patie nt. Patient was brought to the cardiac Mechanical Product Engineer and her right groin was prepped and draped in the us ual fashion. 20 cc of 2% lidocaine was infiltrated into the skin and subcutaneous tissues for local anesthesia. Arterial and venous accesses were obtained in the right common femoral artery and vein r espectively and 6 and 8 Albanian sheaths inserted. A 7.5 Albanian Walbridge-Alejo catheter was then advanced u nder fluoroscopic guidance and intracardiac pressures, oxygen saturations and cardiac output by Belinda method measured. Subsequently, 6 Albanian JL4 and 6 Albanian JR4 catheters were used to perform selectiv e angiography of the left and right coronary arteries. LVEDP and transaortic gradients were measured . Left ventriculography was not performed due to elevated EDP and availability of recent 2D echo anjel t showed LVEF 15%. Patient tolerated the procedure well. Hemostasis was achieved using Mynx closure device and manual compression. There were no immediate complications. FINDINGS A. RIGHT HEART CATHETERIZATION 1. Intracardiac pressures: Mean right atrial pressure 21 mmHg, right ventricular pressure 68/13 mmHg , pulmonary artery pressure 71/33 mmHg with a mean PA pressure 49 mmHg, mean pulmonary capillary wedg e pressure 30 mmHg. This is consistent with elevated right and left-sided filling pressures. Modera te pulmonary hypertension probably secondary to elevated left-sided filling pressures. 2. Oxygen saturations: Right atrium 66.1%, pulmonary artery 65.9%, femoral arterial sheath 92.4%. N o evidence of intracardiac shunt. 3. Cardiac output by thermodilution method 3.46 L/min. B. LEFT HEART CATHETERIZATION 1. Hemodynamics: Elevated left ventricular end-diastolic pressure of 36 mmHg consistent with acute o n chronic systolic heart failure. No pullback gradient across the aortic valve. 2. Coronary angiography: a. The left main coronary artery arose from the left sinus of Valsalva, gave rise to the left anteri or descending and left circumflex arteries and did not show any significant stenosis. b. The left anterior descending artery showed a widely patent stent in the proximal to mid segment. The 1st diagonal branch was a small caliber vessel that showed 70% stenosis in the proximal to mid s egment, described in prior cardiac catheterization. c. The left circumflex artery did not show any significant stenosis. d. The right coronary artery was a large and dominant vessel arising from the right sinus of Valsalv a that did not show any significant stenosis. Conclusion 1. Widely patent previously placed stent in the left anterior descending artery without any lesions needing intervention. 2. Acute on chronic systolic heart failure as evidenced by elevated left and right-sided filling pre ssures. 3. No evidence of intracardiac shunt. Recommendations Optimization of medical therapy. Signed by : Catie Bro, Electronically Approved : 05/30/2021 11:17:04
--- NOTE | 2021-05-30 14:25 | NUR ---
discharge instructions reviewed with patient. PIV dc'd. Pt ambulated and tolerated PO. Patient to dc home in private vehicle with friend.
== END 2021-05-30 15:05 | disposition home or self-care (01) ==
LOC: CCL 07:07
PROVIDERS: ATTEND Internal Medicine Cardiovascular Disease
DX: I25.10 Atherosclerotic heart disease of native coronary artery without angina pectoris (principal); R06.00 Dyspnea, unspecified; I42.9 Cardiomyopathy, unspecified; E78.00 Pure hypercholesterolemia, unspecified; J44.9 Chronic obstructive pulmonary disease, unspecified; G47.30 Sleep apnea, unspecified; E66.9 Obesity, unspecified; K21.9 Gastro-esophageal reflux disease without esophagitis; I13.0 Hypertensive heart and chronic kidney disease with heart failure and stage 1 through stage 4 chronic kidney disease, or unspecified chronic kidney disease; I50.9 Heart failure, unspecified; N18.30 Chronic kidney disease, stage 3 unspecified; M19.90 Unspecified osteoarthritis, unspecified site; F41.9 Anxiety disorder, unspecified; F32.9 Major depressive disorder, single episode, unspecified; E11.22 Type 2 diabetes mellitus with diabetic chronic kidney disease; Z85.3 Personal history of malignant neoplasm of breast; Z90.49 Acquired absence of other specified parts of digestive tract; Z98.890 Other specified postprocedural states; Z79.899 Other long term (current) drug therapy; Z87.440 Personal history of urinary (tract) infections; Z79.82 Long term (current) use of aspirin; Z79.84 Long term (current) use of oral hypoglycemic drugs; Z88.8 Allergy status to other drugs, medicaments and biological substances
CPT/HCPCS: 36415; 80048; 85610; 93460; 99152; 99153; J1644; J1940; J2250; J3010; J3490; Q9967